=== PATIENT | female | born 1965 | race Caucasian/White ===

== ENCOUNTER 2016-07-08 11:06 | Outpatient (CLI) | payer MEDICAID | END 2016-07-08 11:07 | disposition home or self-care (01) | DX: I10 Essential (primary) hypertension (principal); Z13.220 Encounter for screening for lipoid disorders; E11.9 Type 2 diabetes mellitus without complications; K86.1 Other chronic pancreatitis; K74.60 Unspecified cirrhosis of liver; M10.9 Gout, unspecified ==

== ENCOUNTER 2016-10-18 12:56 | Outpatient (CLI) | payer MEDICAID | END 2016-10-18 12:57 | disposition critical access hospital (66) | DX: R42 Dizziness and giddiness (principal) | CPT/HCPCS: A0425; A0427 ==

== ENCOUNTER 2016-10-18 13:14 | Emergency (ER) | payer MEDICAID ==
[2016-10-18] MEDS ORDERED: SODIUM CHLORIDE 0.9% 500 ML IV ONE (14:35)
== END 2016-10-18 15:34 | disposition left against medical advice (07) ==
DX: E11.65 Type 2 diabetes mellitus with hyperglycemia (principal); Z79.84 Long term (current) use of oral hypoglycemic drugs; R07.9 Chest pain, unspecified; I10 Essential (primary) hypertension; J45.909 Unspecified asthma, uncomplicated; Z87.19 Personal history of other diseases of the digestive system; F17.200 Nicotine dependence, unspecified, uncomplicated

== ENCOUNTER 2016-10-22 19:38 | Outpatient (CLI) | payer MEDICAID | END 2016-10-22 19:39 | disposition home or self-care (01) | DX: E11.9 Type 2 diabetes mellitus without complications (principal) ==

== ENCOUNTER 2017-06-14 19:03 | Emergency (ER) | payer MEDICAID ==
[2017-06-14 19:48] LABS: BASOPHILS # (AUTO) 0.1 10^3/uL (0.0-0.1); BASOPHILS % (AUTO) 0.7 %; EOSINOPHILS % (AUTO) 0.1 %; HCT - HEMATOCRIT 41.5 % (37.0-47.0); HGB - HEMOGLOBIN 14.1 g/dL (12.0-16.0); LYMPHOCYTES # (AUTO) 1.5 10^3/uL (1.5-3.5); LYMPHOCYTES % (AUTO) 9.1 %; MEAN CORPUSCULAR HGB CONC 33.8 g/dL (32.0-36.0); MEAN CORPUSCULAR VOLUME 97.6 fL (81.0-99.0); MEAN PLATELET VOLUME 10.2 fL (7.9-10.8); MONOCYTES # (AUTO) 0.8 10^3/uL (0.0-1.0); MONOCYTES % (AUTO) 4.7 %; NEUTROPHILS # (AUTO) 13.7 10^3/uL (1.5-6.6); NEUTROPHILS % (AUTO) 85.4 %; RED BLOOD COUNT 4.26 10^6/uL (4.20-5.40); RED CELL DISTRIBUTION WIDTH 12.9 % (12.0-15.0); UNCORRECTED WHITE BLOOD COUNT 16.1 x10^3/uL; WHITE BLOOD COUNT 16.1 x10^3/uL (4.8-10.8)
[2017-06-14 20:07] LABS: ALBUMIN/GLOBULIN RATIO 0.7 (1.0-2.2); BILIRUBIN,TOTAL 0.6 mg/dL (0.2-1.0); CALCIUM 9.5 mg/dL (8.5-10.3); CREATININE 0.7 mg/dL (0.4-1.0); POTASSIUM 3.7 mmol/L (3.5-5.0); TOTAL PROTEIN 8.2 g/dL (6.7-8.2)
[2017-06-14] MEDS ORDERED: SODIUM CHLORIDE 0.9% 1,000 ML IV ONE (20:21)
[2017-06-14] MEDS ORDERED: KETOROLAC 60 MG/2 ML VIAL IVP STA (20:31)
[2017-06-14] MEDS ORDERED: INSULIN REGULAR HUMAN 100 UNIT/1 ML 10 ML MDV IVP STA ×2 (20:32→22:37)
--- NOTE | 2017-06-14 20:35 | XRAY Preliminary Report ---
Exam: XR CHEST 1 VIEW IMPRESSION: Stable hyperinflation, otherwise unremarkable single view chest. [facility] SITE ID: [id number]
--- NOTE | 2017-06-14 20:35 | ED Physician Documentation ---
History of Present Illness - Stated complaint Stated Complaint: SOA/DIZZY/WEAKNESS - Chief complaint Chief Complaint: Resp - History obtained from History obtained from: Patient - History of Present Illness Timing: Other (various timeframes for multiple c/o) Pain level now: 6 Improved by: no ameliorating factors Worsened by: no exacerbating factors - Additonal information Additional information: c/o 2 weeks of nausea, vomiting, abdominal pain, chest pain, shortness of breath , coughing, generalized weakness. hasn't checked her blood sugar in approximately 1 week Review of Systems Constitutional: reports: Myalgias, Fatigue. denies: Fever, Chills, Sweats Eyes: reports: Reviewed and negative Ears: reports: Reviewed and negative Nose: reports: Reviewed and negative Throat: reports: Reviewed and negative Cardiac: reports: Chest pain / pressure. denies: Palpitations, Pedal edema Respiratory: reports: Dyspnea, Cough GI: reports: Abdominal Pain, Nausea, Vomiting. denies: Constipation, Diarrhea : denies: Dysuria, Frequency Skin: reports: Reviewed and negative Musculoskeletal: reports: Reviewed and negative Neurologic: reports: Generalized weakness. denies: Focal weakness, Numbness PD PAST MEDICAL HISTORY - Past Medical History Cardiovascular: Hypertension Respiratory: Asthma Endocrine/Autoimmune: Type 2 diabetes GI: Pancreatitis, Cirrhosis - Past Surgical History Past Surgical History: Yes General: Splenectomy Ortho: Hip replacement, Rotator cuff repair, Other - Present Medications Home Medications: Ambulatory Orders Medication Instructions Recorded Confirmed Allopurinol 100 mg PO DAILY 10/18/16 10/18/16 Atorvastatin [Lipitor] 10 mg PO DAILY 10/18/16 10/18/16 Glipizide 5 mg PO BID 10/18/16 10/18/16 Ipratropium/Albuterol [Combivent 2 puffs INH PRN PRN 10/18/16 10/18/16 Respimat] Losartan [Cozaar] 50 mg PO DAILY 10/18/16 10/18/16 Omeprazole 20 mg PO DAILY 10/18/16 10/18/16 Ondansetron [Zofran Odt] 8 mg PO Q6H 10/18/16 10/18/16 amLODIPine [Norvasc] 10 mg PO DAILY 10/18/16 10/18/16 hydrOXYzine pamoate [Hydroxyzine 50 mg PO DAILY 10/18/16 10/18/16 Pamoate] metFORMIN [Glucophage] 1,000 mg PO BID 10/18/16 10/18/16 Ondansetron Odt [Zofran] 4 mg TL Q6H PRN #10 tablet 06/15/17 - Allergies Allergies/Adverse Reactions: Allergies Allergy/AdvReac Type Severity Reaction Status Date / Time morphine Allergy unknown Verified 06/14/17 19:12 - Social History Does the pt smoke?: Yes Smoking Status: Current every day smoker Does the pt drink ETOH?: Yes Does the pt have substance abuse?: Yes - Immunizations Immunizations are current?: Yes - POLST Patient has POLST: No PD ED PE NORMAL - Vitals Vital signs reviewed: Yes - General General: Alert and oriented X 3, No acute distress, Well developed/nourished - HEENT HEENT: PERRL, EOMI, Other (dry mucous membranes) - Neck Neck: Supple, no meningeal sign - Cardiac Cardiac: RRR, No murmur, No gallop, No rub - Respiratory Respiratory: No respiratory distress, Other (end-expiratory course wheeze scattered bilaterally) - Abdomen Abdomen: Normal bowel sounds, Soft, Non tender, Non distended - Derm Derm: Normal color, Warm and dry - Extremities Extremities: No edema - Neuro Neuro: Alert and oriented X 3 Eye Opening: Spontaneous Motor: Obeys Commands Verbal: Oriented GCS Score: 15 Results - Vitals Vitals: Vital Signs - 24 hr 06/14/17 06/14/17 06/14/17 19:08 20:56 22:29 Temperature 97.2 C H 37.2 C 36.2 C L Heart Rate 113 H 93 92 Respiratory 16 20 18 Rate Blood Pressure 119/91 H 157/87 H 147/84 H O2 Saturation 97 97 95 06/14/17 06/14/17 06/15/17 23:25 23:56 00:16 Temperature Heart Rate 82 80 84 Respiratory 19 16 14 Rate Blood Pressure 142/78 H 126/95 H 139/87 H O2 Saturation 97 96 97 06/15/17 01:05 Temperature 36.5 C Heart Rate 86 Respiratory 14 Rate Blood Pressure 139/87 H O2 Saturation 97 Oxygen O2 Source Room air - EKG (time done) No standard instances Rate: Tachy (105) Rhythm: NSR [place]: Normal Intervals: Normal [place] QRS: Normal Ischemia: Normal ST segments Computer interpretation: Disagree with computer (No ST elevation) - Labs Labs: Laboratory Tests 06/14/17 06/14/17 06/14/17 19:40 19:40 19:40 WBC 16.1 H RBC 4.26 Hgb 14.1 Hct 41.5 MCV 97.6 MCH 33.0 H MCHC 33.8 RDW 12.9 Plt Count 399 MPV 10.2 Neut # 13.7 H Lymph # 1.5 [place] # 0.8 Eos # 0.0 Baso # 0.1 Absolute Nucleated RBC 0.00 Nucleated RBC % 0.0 VBG pH VBG pCO2 VBG pO2 VBG HCO3 VBG Total CO2 VBG O2 Saturation VBG Base Excess Sodium 128 L Potassium 3.7 Chloride 84 L Carbon Dioxide 20 L Anion Gap 24.0 H BUN 11 Creatinine 0.7 Estimated GFR (MDRD) 89 Glucose 629 H* Calcium 9.5 Total Bilirubin 0.6 AST 20 ALT 14 Alkaline Phosphatase 153 H Troponin I < 0.04 Total Protein 8.2 Albumin 3.3 Globulin 4.8 H Albumin/Globulin Ratio 0.7 L Lipase 35 Urine Color Urine Clarity Urine pH Ur Specific [place] Urine Protein Urine Glucose (UA) Urine Ketones Urine Occult Blood Urine Nitrite Urine Bilirubin Urine Urobilinogen Ur Leukocyte Esterase Ur Microscopic Review Urine Culture Comments Serum Ketones 06/14/17 06/14/17 06/14/17 19:40 20:30 21:01 WBC RBC Hgb Hct MCV MCH MCHC RDW Plt Count MPV Neut # Lymph # [place] # Eos # Baso # Absolute Nucleated RBC Nucleated RBC % VBG pH 7.412 H VBG pCO2 36.6 L VBG pO2 27.5 VBG HCO3 22.8 L VBG Total CO2 23.9 L VBG O2 Saturation 55.4 L VBG Base Excess -1.4 Sodium Potassium Chloride Carbon Dioxide Anion Gap BUN Creatinine Estimated GFR (MDRD) Glucose Calcium Total Bilirubin AST ALT Alkaline Phosphatase Troponin I Total Protein Albumin Globulin Albumin/Globulin Ratio Lipase Urine Color YELLOW Urine Clarity CLEAR Urine pH 5.5 Ur Specific [place] <=1.005 Urine Protein NEGATIVE Urine Glucose (UA) >=1000 H Urine Ketones >=80 H Urine Occult Blood NEGATIVE Urine Nitrite NEGATIVE Urine Bilirubin NEGATIVE Urine Urobilinogen 0.2 (NORMAL) Ur Leukocyte Esterase NEGATIVE Ur Microscopic Review NOT INDICATED Urine Culture Comments NOT INDICATED Serum Ketones SMALL H - Rads (name of study) chest xray Radiology: Prelim report reviewed, See rad report PD MEDICAL DECISION MAKING - ED course Complexity details: reviewed old records, reviewed results, re-evaluated patient , considered differential, d/w patient ED course: Patient has various c/o, found to be hyperglycemic but only small serum ketones and VBG is reassuring. She was treated with IV fluids, insulin, and toradol for abdominal pain (followed by dilaudid, as she reported no relief with toradol). Also given IV zofran for nausea. BS trending down on serial fingerstix, below 350 prior to discharge and patient reported significant improvement in symptoms , was awake, alert, and in NAD Departure - Departure Disposition: 01 Home, Self Care Clinical Impression: Abdominal pain, Hyperglycemia, Chest pain Condition: Good Instructions: ED Abdominal Pain Unkn Cause, ED Chest Pain Atypical Unkn Cause, ED Hyperglycemia Diabetic Follow-Up: Roseanne Lara ARNP [Primary Care Provider] - Prescriptions: Ondansetron Odt [Zofran] 4 mg TL Q6H PRN #10 tablet PRN Reason: Nausea / Vomiting Discharge Date/Time: 06/15/17 01:06
--- NOTE | 2017-06-14 20:38 | XRAY Report ---
EXAM: CHEST RADIOGRAPHY EXAM DATE: 06/14/2017 07:58 PM. CLINICAL HISTORY: Chest pain. COMPARISON: 10/18/2016. TECHNIQUE: 1 view. FINDINGS: Lungs/Pleura: Hyperinflated lungs. No focal opacities evident. No pleural effusion. No pneumothorax. Mediastinum: Within exam limitations, the cardiomediastinal contour is normal. Other: Old upper left posterior rib fractures again noted. IMPRESSION: Stable hyperinflation, otherwise unremarkable single view chest. [facility] Referring Provider Line: [phone] SITE ID: [id number]
[2017-06-14 20:48] LABS: VBG PH 7.412 (7.31-7.41); VBG TOTAL CO2 23.9 mmol/L (24-29)
[2017-06-14 20:49] LABS: VBG BASE EXCESS -1.4 mmol/L (-2 - +2); VBG OXYGEN SATURATION 55.4 % (60-80)
[2017-06-14 21:19] LABS: BILIRUBIN,URINE NEGATIVE (NEGATIVE); PH,URINE 5.5 PH (5.0-7.5)
[2017-06-14 21:20] LABS: UA CHARGE (STRIP ONLY) YES; UR CULTURE IF IND NOT INDICATED
[2017-06-14] MEDS ORDERED: HYDROmorphone 1 MG/ML SYRINGE IVP STA (22:36)
[2017-06-14] MEDS ORDERED: ONDANSETRON 4 MG/2 ML VIAL IVP STA (22:37)
[2017-06-14] MEDS ORDERED: SODIUM CHLORIDE 0.9% 1,000 ML IV STA (22:37)
[2017-06-15 00:16] VITALS: BP 139/87
[2017-06-15] MEDS ORDERED: HYDROmorphone 1 MG/ML SYRINGE IVP STA (00:20)
== END 2017-06-15 01:06 | disposition home or self-care (01) ==
LOC: ED 19:03
DX: E11.65 Type 2 diabetes mellitus with hyperglycemia (principal); Z79.84 Long term (current) use of oral hypoglycemic drugs; R07.9 Chest pain, unspecified; R10.9 Unspecified abdominal pain; R11.2 Nausea with vomiting, unspecified; I10 Essential (primary) hypertension; J45.909 Unspecified asthma, uncomplicated; F17.200 Nicotine dependence, unspecified, uncomplicated
CPT/HCPCS: 36415; 71010; 80053; 81003; 82009; 82803; 83690; 84484; 85025; 93005; 96361; 96374; 96375; 96376; 99283; 99284; J1170; J1815; 81001; 87086

== ENCOUNTER 2017-07-23 11:10 | Outpatient (CLI) | payer MEDICAID ==
[2017-07-23 19:16] LABS: BASOPHILS # (AUTO) 0.1 10^3/uL (0.0-0.1); BASOPHILS % (AUTO) 1.3 %; EOSINOPHILS # (AUTO) 0.2 10^3/uL (0.0-0.7); EOSINOPHILS % (AUTO) 1.8 %; HGB - HEMOGLOBIN 12.9 g/dL (12.0-16.0); LYMPHOCYTES # (AUTO) 2.5 10^3/uL (1.5-3.5); LYMPHOCYTES % (AUTO) 22.1 %; MEAN CORPUSCULAR HEMOGLOBIN 32.8 pg (27.0-31.0); MEAN CORPUSCULAR HGB CONC 33.1 g/dL (32.0-36.0); MEAN CORPUSCULAR VOLUME 98.9 fL (81.0-99.0); MEAN PLATELET VOLUME 9.2 fL (7.9-10.8); MONOCYTES # (AUTO) 0.8 10^3/uL (0.0-1.0); MONOCYTES % (AUTO) 6.8 %; NEUTROPHILS # (AUTO) 7.6 10^3/uL (1.5-6.6); PLT - PLATELET COUNT 554 10^3/uL (130-450); RED BLOOD COUNT 3.93 10^6/uL (4.20-5.40); RED CELL DISTRIBUTION WIDTH 12.5 % (12.0-15.0); WHITE BLOOD COUNT 11.1 x10^3/uL (4.8-10.8)
[2017-07-23 19:31] LABS: BILIRUBIN,URINE SMALL (NEGATIVE); GLUCOSE, URINE (UA) 500 mg/dL (NEGATIVE); KETONES,URINE (UA) TRACE mg/dL (NEGATIVE); LEUKOCYTE ESTERASE, URINE NEGATIVE (NEGATIVE); NITRITE,URINE NEGATIVE (NEGATIVE); OCCULT BLOOD,URINE NEGATIVE (NEGATIVE); PROTEIN,URINE 30 mg/dL (NEGATIVE); UROBILINOGEN,URINE 0.2 (NORMAL) E.U./dL (NORMAL)
[2017-07-23 19:44] LABS: HEMOGLOBIN A1C 1.97 g/dL
[2017-07-23 19:47] LABS: AMORPHOUS SEDIMENT,UR Moderate /LPF; BACTERIA,URINE None Seen /HPF (None Seen); CLARITY,URINE HAZY (CLEAR); RBC,URINE 0-5 /HPF (0-5); SQUAMOUS EPITHELIAL CELL,UR MOD Squamous (<= Few)
[2017-07-23 19:54] LABS: ALBUMIN 3.5 g/dL (3.2-5.5); ALBUMIN/GLOBULIN RATIO 0.8 (1.0-2.2); ALKALINE PHOSPHATASE 117 IU/L (42-121); ALT ALANINE AMINOTRANSFERASE 17 IU/L (10-60); AST ASPARTATE AMINOTRANSFERASE 22 IU/L (10-42); BILIRUBIN,TOTAL 0.6 mg/dL (0.2-1.0); BUN - BLOOD UREA NITROGEN 12 mg/dL (6-20); CALCIUM 9.3 mg/dL (8.5-10.3); CARBON DIOXIDE - CO2 26 mmol/L (21-32); CHLORIDE 92 mmol/L (101-111); CHOL/HDL RATIO 2.1 (<4.4); CHOLESTEROL 114 mg/dL; CREATININE 0.7 mg/dL (0.4-1.0); GFR - MDRD 89 (>89); GLUCOSE 370 mg/dL (70-100); HDL CHOLESTEROL 55 mg/dL; LDL CHOLESTEROL,CALCULATED 34 mg/dL; LDL/HDL RATIO 0.6 (<4.4); SODIUM 129 mmol/L (135-145); TOTAL PROTEIN 7.7 g/dL (6.7-8.2); VLDL CHOLESTEROL 25 mg/dL
== END 2017-07-23 11:11 | disposition home or self-care (01) ==
LOC: LAB.N 11:10
PROVIDERS: ATTEND Nurse Practitioner Family
DX: I10 Essential (primary) hypertension (principal); E11.40 Type 2 diabetes mellitus with diabetic neuropathy, unspecified
CPT/HCPCS: 36415; 80050; 80061; 81001; 82043; 83036; 83721; 87086

== ENCOUNTER 2017-10-22 08:00 | Outpatient (CLI) | payer MEDICAID ==
[2017-10-22 19:21] LABS: HB2 TOTAL 13.6 g/dL; HEMOGLOBIN A1C 1.05 g/dL; HEMOGLOBIN A1C % 9.2 % (4.6-6.2)
== END 2017-10-22 08:01 | disposition home or self-care (01) ==
LOC: LAB.N 08:00
PROVIDERS: ATTEND Nurse Practitioner Family
DX: E11.40 Type 2 diabetes mellitus with diabetic neuropathy, unspecified (principal)
CPT/HCPCS: 36415; 83036

== ENCOUNTER 2017-12-03 23:34 | Outpatient (CLI) | payer MEDICAID | END 2017-12-03 23:35 | disposition critical access hospital (66) | LOC: EMS 23:34 | PROVIDERS: ATTEND Surgery | DX: R10.9 Unspecified abdominal pain (principal) | CPT/HCPCS: A0425; A0429 ==

== ENCOUNTER 2017-12-03 23:53 | Emergency (ER) | payer MEDICAID ==
[2017-12-04] MEDS ORDERED: ONDANSETRON 4 MG/2 ML VIAL IVP STA ×2 (00:13→01:24)
[2017-12-04 00:18] LABS: BASOPHILS # (AUTO) 0.1 10^3/uL (0.0-0.1); BASOPHILS % (AUTO) 1.3 %; EOSINOPHILS # (AUTO) 0.1 10^3/uL (0.0-0.7); EOSINOPHILS % (AUTO) 1.2 %; HGB - HEMOGLOBIN 12.3 g/dL (12.0-16.0); LYMPHOCYTES # (AUTO) 3.3 10^3/uL (1.5-3.5); MEAN CORPUSCULAR HEMOGLOBIN 30.9 pg (27.0-31.0); MEAN CORPUSCULAR HGB CONC 33.1 g/dL (32.0-36.0); MEAN CORPUSCULAR VOLUME 93.4 fL (81.0-99.0); MEAN PLATELET VOLUME 8.5 fL (7.9-10.8); MONOCYTES # (AUTO) 0.7 10^3/uL (0.0-1.0); MONOCYTES % (AUTO) 6.9 %; NEUTROPHILS # (AUTO) 6.3 10^3/uL (1.5-6.6); NEUTROPHILS % (AUTO) 59.6 %; PLT - PLATELET COUNT 446 10^3/uL (130-450); RED BLOOD COUNT 3.97 10^6/uL (4.20-5.40); WHITE BLOOD COUNT 10.7 x10^3/uL (4.8-10.8)
[2017-12-04] MEDS ORDERED: ONDANSETRON 4 MG/2 ML VIAL ONE (00:23)
[2017-12-04 00:30] LABS: ALBUMIN 2.9 g/dL (3.2-5.5); ALBUMIN/GLOBULIN RATIO 0.6 (1.0-2.2); ALKALINE PHOSPHATASE 107 IU/L (42-121); ALT ALANINE AMINOTRANSFERASE 15 IU/L (10-60); AST ASPARTATE AMINOTRANSFERASE 24 IU/L (10-42); BILIRUBIN,TOTAL 0.3 mg/dL (0.2-1.0); BUN - BLOOD UREA NITROGEN 7 mg/dL (6-20); CALCIUM 8.1 mg/dL (8.5-10.3); CARBON DIOXIDE - CO2 27 mmol/L (21-32); CHLORIDE 91 mmol/L (101-111); CREATININE 0.8 mg/dL (0.4-1.0); GFR - MDRD 76 (>89); GLUCOSE 352 mg/dL (70-100); LIPASE 23 U/L (22-51); SODIUM 130 mmol/L (135-145); TOTAL PROTEIN 7.6 g/dL (6.7-8.2)
[2017-12-04] MEDS ORDERED: SODIUM CHLORIDE 0.9% 1,000 ML IV ONE ×3 (00:35→08:53)
[2017-12-04] MEDS ORDERED: ACETAMINOPHEN 500 MG TABLET PO STA (00:36)
[2017-12-04] MEDS ORDERED: LIDOCAINE 1%-EPI 1:100000 20 ML MDV SUBQ STA (00:36)
[2017-12-04] MEDS ORDERED: INSULIN REGULAR HUMAN 100 UNIT/1 ML 10 ML MDV IVP STA (00:42)
[2017-12-04] MEDS ORDERED: LIDOCAINE 2%-EPI 1:100000 20 ML MDV ONE (00:54)
[2017-12-04 01:01] LABS: KETONES, SERUM (ACETEST) NEGATIVE (NEGATIVE)
[2017-12-04 01:06] LABS: VBG PCO2 38.8 mmHg (41-51); VBG PH 7.433 (7.31-7.41); VBG PO2 80.3 mmHg (25-47)
[2017-12-04 01:07] LABS: VBG BASE EXCESS 1.1 mmol/L (-2 - +2); VBG TOTAL CO2 26.5 mmol/L (24-29)
[2017-12-04] MEDS ORDERED: KETOROLAC 30 MG/ML VIAL IVP STA (01:08)
[2017-12-04] MEDS ORDERED: KETOROLAC 30 MG/ML VIAL ONE (01:14)
[2017-12-04 02:00] LABS: MUDS CUTOFF CONCENTRATIONS CUTOFF CONC BELOW:
[2017-12-04] MEDS ORDERED: IOPAMIDOL-300 100 ML VIAL ONE (02:23)
[2017-12-04 02:32] LABS: BILIRUBIN,URINE NEGATIVE (NEGATIVE); GLUCOSE, URINE (UA) >=1000 mg/dL (NEGATIVE); KETONES,URINE (UA) NEGATIVE (NEGATIVE); LEUKOCYTE ESTERASE, URINE NEGATIVE (NEGATIVE); NITRITE,URINE NEGATIVE (NEGATIVE); OCCULT BLOOD,URINE NEGATIVE (NEGATIVE); PROTEIN,URINE NEGATIVE (NEGATIVE); UROBILINOGEN,URINE 0.2 (NORMAL) E.U./dL (NORMAL)
[2017-12-04 02:38] LABS: CLARITY,URINE CLEAR (CLEAR)
[2017-12-04 02:43] LABS: AMPHETAMINE SCREEN,URINE POSITIVE (NEGATIVE); BENZODIAZEPINES SCREEN, URINE POSITIVE (NEGATIVE); COCAINE SCREEN URINE NEGATIVE (NEGATIVE); METHADONE SCREEN, URINE NEGATIVE (NEGATIVE); METHAMPHETAMINES SCREEN, URINE POSITIVE (NEGATIVE); OPIATE SCREEN, URINE POSITIVE (NEGATIVE); OXYCODONE SCREEN, URINE NEGATIVE (NEGATIVE); PROPOXYPHENE SCREEN, URINE NEGATIVE (NEGATIVE); TRICYCLIC ANTIDEPRESSANT,URINE NEGATIVE (NEGATIVE)
[2017-12-04] MEDS ORDERED: HYDROmorphone 2 MG/ML VIAL IVP STA (02:44)
--- NOTE | 2017-12-04 03:06 | CT Preliminary Report ---
Exam: CT ABDOMEN/PELVIS W/ IMPRESSION: 1. Possible gastritis. 2. 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 Small branching hypodense structures in the liver could reflect small branch thrombi. 3. Chronic calcific pancreatitis. 4. Cholelithiasis. [facility] SITE ID: [id number]
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
--- NOTE | 2017-12-04 03:22 | CT Report ---
EXAM: CT ABDOMEN AND PELVIS EXAM DATE: 12/04/2017 02:36 AM. CLINICAL HISTORY: Diffuse abdomen pain. COMPARISONS: 09/06/2015, 07/02/2014. TECHNIQUE: Routine helical CT imaging was performed through the abdomen and pelvis. IV contrast: Yes . Enteric contrast: No . Reconstructions: Coronal and sagittal. In accordance with CT protocol optimization, one or more of the following dose reduction techniques w ere utilized for this exam: automated exposure control, adjustment of mA and/or KV based on patient s ize, or use of iterative reconstructive technique. FINDINGS: Lung Bases: Unremarkable. Liver: Chronic main portal venous thrombosis with cavernous transformation of the portal vein. Hypode nse linear branching structures in the periphery of both lobes of the liver may reflect small branch venous thrombi. No suspicious masses. Gallbladder/Bile Ducts: Cholelithiasis in a decompressed gallbladder. Spleen: Post-splenectomy with left upper quadrant splenule noted. Pancreas: Chronic calcific pancreatitis without definite acute pancreatitis. Adrenal Glands: Unremarkable. Kidneys: Unremarkable. No suspicious masses or hydronephrosis. Peritoneal Cavity/Bowel: Possible gastric fold thickening and mild distal gastric wall edema. No juwan gastric stranding or mass seen. No obstruction. No free air or significant free fluid. Pelvic Organs: Post-hysterectomy with no adnexal masses seen. The bladder appears within normal limit s. Vasculature: Please see above for portal vein. 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 No aneurysms or other significant abnormality. Bones: Previous right pelvic fracture repair. No acute osseous abnormality seen. Other: None. IMPRESSION: 1. Possible gastritis. 2. 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 Small branching hypodense structures in the liver could reflect small branch thrombi. 3. Chronic calcific pancreatitis. 4. Cholelithiasis. [facility] Referring Provider Line: [phone] SITE ID: [id number]
[2017-12-04] MEDS ORDERED: PROMETHAZINE INJ 25 MG in SODIUM CHLORIDE 0.9% 50 ML IV STA (03:33)
[2017-12-04] MEDS ORDERED: IOPAMIDOL-300 100 ML VIAL IVP ONE (03:36)
[2017-12-04] MEDS ORDERED: CLINDAMYCIN 600 MG/50 ML 50 ML IV ONE (04:27)
--- NOTE | 2017-12-04 05:22 | Ultrasound Report ---
EXAM: ABDOMEN ULTRASOUND LIMITED, RUQ EXAM DATE: 12/04/2017 05:11 AM. CLINICAL HISTORY: Right upper quadrant pain, abnormal ct. COMPARISON: None. TECHNIQUE: Real-time scanning was performed with static images obtained. FINDINGS: Liver: Echotexture increased without suspicious abnormality seen. Main portal vein flow: Known chroni c portal vein thrombosis with cavernous transmission, but dilated by CT. Gallbladder: Multiple gallstones. Minimal wall thickening at 3 mm. There is reported tenderness and pericholecystic fluid present. Biliary System: Extrahepatic bile duct not visualized. Gross intrahepatic duct dilatation. Other: None. IMPRESSION: Findings raise suspicion for early cholecystitis. [facility] Referring Provider Line: [phone] SITE ID: [id number]
--- NOTE | 2017-12-04 08:06 | CONSULTATION NOTE ---
Referring Provider Name of Referring Provider:: Dr. Macias Consult Date: 12/04/17 Chief Complaint - Chief Complaint Chief Complaint: Lower RIGHT abdominal-hip pain History of Present Illness - Admitted From Admitted From:: Not admitted. - History Obtained From Records Reviewed: Yes History obtained from: Patient Exam Limitations: None - History of Present Illness HPI Comment/Other: This very pleasant but unfortunate 52-year-old female was evaluated in room 3 at [facility]'s emergency department at the request of Dr. Macias for the possibility of gallbladder disease. What had Dr. Macias thinking gallbladder disease is her continued abdominal pain. 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 The patient is known to have cholelithiasis but she does not have any postprandial pain. I asked her if she were to eat at [employer] if she would have increased abdominal pain and she smiled and stated no. In fact when I asked her what hurts the most she pointed to the incision and drainage site on her lower right abdomen/hip. She states that she has not been jaundiced. She has a history of illicit drug use/abuse. With this episode she has had significant nausea and "dry heaves." History - Past Medical History Cardiovascular: reports: Hypertension, High cholesterol Respiratory: reports: Asthma Endocrine/Autoimmune: reports: Type 2 diabetes, Other GI: reports: GERD, Pancreatitis, Cirrhosis HEENT: reports: Other Psych: reports: Depression MRSA Hx?: No - Past Surgical History General: reports: Splenectomy Ortho: reports: Hip replacement, Rotator cuff repair, Other - POLST Patient has POLST: No Meds/Allgy - Home Medications Home Medications: Ambulatory Orders Medication Instructions Recorded Confirmed Allopurinol 100 mg PO DAILY 10/18/16 12/03/17 Atorvastatin [Lipitor] 10 mg PO DAILY 10/18/16 12/03/17 Ipratropium/Albuterol [Combivent 2 puffs INH PRN PRN 10/18/16 12/03/17 Respimat] Losartan [Cozaar] 100 mg PO DAILY 10/18/16 08/07/17 Omeprazole 20 mg PO DAILY 10/18/16 12/03/17 Ondansetron [Zofran Odt] 8 mg PO Q6H 10/18/16 08/07/17 amLODIPine [Norvasc] 10 mg PO DAILY 10/18/16 12/03/17 hydrOXYzine pamoate [Hydroxyzine 50 mg PO Q6HR PRN 10/18/16 12/03/17 Pamoate] metFORMIN [Glucophage] 1,000 mg PO BID 10/18/16 12/03/17 Ondansetron Odt [Zofran] 4 mg TL Q6H PRN #10 tablet 06/15/17 08/07/17 Insulin Glargine,Hum.rec.anlog 28 unit SQ DAILY 07/30/17 07/30/17 [Basaglar Kwikpen U-100] Gabapentin 100 mg PO TID 08/07/17 12/03/17 Insulin Lispro [Humalog Kwikpen 5 units SUBQ TIDWM 08/07/17 12/03/17 U-100] - Allergies Allergies/Adverse Reactions: Allergies Allergy/AdvReac Type Severity Reaction Status Date / Time morphine Allergy unknown Verified 12/03/17 23:58 Review of Systems - All Other Systems All Other Systems: reports: Other (Asked constitutional, eyes, ears, nose, mouth , throat, cardiovascular, respiratory, gastrointestinal, genitourinary, musculoskeletal, integumentary, neurological, psychiatric, endocrine, hematologic, lymphatic, allergic, and immunologic and is diffusely positive.) Exam - Vital Signs Reviewed Vital Signs: Yes Vital Signs: Vital Signs x48h Pulse Resp BP Pulse Ox 12/04/17 06:05 88 16 128/80 99 12/04/17 03:34 88 16 131/74 H 95 12/04/17 02:13 86 20 133/85 H 95 - Physical Exam General Appearance: positive: No acute distress (Complains of pain at I&D site. Unkempt and appears much older than stated age. Dentition poor.) Eyes Bilateral: positive: No lid inflammation, Conjunctivae nml, No scleral icterus ENT: positive: Dry mucous membranes Neck: positive: Trachea midline Respiratory: positive: Chest non-tender, Other (Crackles (fine) bilaterally that do not clear completely with cough.) Cardiovascular: positive: Regular rate & rhythm Abdomen: positive: Tenderness (Only in the RLQ. None in the RUQ and certainly none subcostally. Positive bowel sounds.) Extremities: positive: Nml appearance Conclusion/Plan - Diagnosis Diagnosis: Portal vein thrombosis with cavernous transformation and history of splenectomy and varices. Asymptomatic cholelithiasis. Pain at I&D site - Plan Plan: There is absolutely no indication for cholecystectomy in this patient. In fact , she would be considered extraordinarily high risk if she needed this operation which she does not. Her signs, symptoms, labs and history are not consistent with symptomatic cholelithiasis. I had a fairly in-depth conversation with her explaining what portal vein thrombosis was and how it can result in needing her spleen out (which the patient has had). I explained to her that with this diagnosis patients are frequently considered for transplant or TIPS but with her drug use she would never be considered. Patients with portal vein thrombosis and cavernous transformation almost always have portal hypertension and varices. She is very high risk for a GI bleed. If this were to happen it would almost certainly be due to varices and I do not believe that our small hospital is equipped to handle it. She does not appear to have a bleed at this point in time. I explained to her that she needs to make some smart decisions moving forward if she intends on living significantly longer. I appreciate the opportunity to be involved in her care. Please contact me if there are any further surgical questions and/or concerns. 45 minutes of [id number] time was spent with the patient as well as in generating this note - Lab Results Lab results reviewed: Yes Jorge Bones: 12/04/17 00:00 12/04/17 00:00
[2017-12-04] MEDS ORDERED: KETOROLAC 60 MG/2 ML VIAL IVP STA (10:40)
[2017-12-04 12:11] VITALS: BP 156/101
== END 2017-12-04 12:23 | disposition home or self-care (01) ==
LOC: EDUNIT# → ED 23:53
DX: L02.211 Cutaneous abscess of abdominal wall (principal); K80.20 Calculus of gallbladder without cholecystitis without obstruction; I81 Portal vein thrombosis; I10 Essential (primary) hypertension; E78.00 Pure hypercholesterolemia, unspecified; F17.200 Nicotine dependence, unspecified, uncomplicated; Z90.81 Acquired absence of spleen
CPT/HCPCS: 10060; 36415; 74177; 76705; 80053; 80306; 81003; 82009; 82803; 83605; 83690; 85025; 87040; 96365; 96366; 96368; 99284; A9270; J1170; J1815; J7040; Q9967; 81001; 87086

== ENCOUNTER 2017-12-05 13:57 | Outpatient (CLI) | payer MEDICAID | END 2017-12-05 13:58 | disposition critical access hospital (66) | LOC: EMS 13:57 | PROVIDERS: ATTEND Surgery | DX: R10.31 Right lower quadrant pain (principal) | CPT/HCPCS: A0425; A0429 ==

== ENCOUNTER 2017-12-05 14:26 | Emergency (ER) | payer MEDICAID ==
[2017-12-05] MEDS ORDERED: ONDANSETRON 4 MG/2 ML VIAL IVP STA (14:41)
[2017-12-05] MEDS ORDERED: SODIUM CHLORIDE 0.9% 1,000 ML IV ONE ×2 (14:41→17:28)
[2017-12-05] MEDS ORDERED: LORazepam 2 MG/ML VIAL IVP STA ×2 (14:42→16:51)
[2017-12-05] MEDS ORDERED: LIDOCAINE 1%-EPI 1:100000 20 ML MDV SUBQ STA (15:15)
[2017-12-05 15:26] LABS: BASOPHILS % (AUTO) 0.2 %; EOSINOPHILS % (AUTO) 0.2 %; HGB - HEMOGLOBIN 13.4 g/dL (12.0-16.0); LYMPHOCYTES # (AUTO) 1.4 10^3/uL (1.5-3.5); LYMPHOCYTES % (AUTO) 9.7 %; MEAN CORPUSCULAR HEMOGLOBIN 32.1 pg (27.0-31.0); MEAN CORPUSCULAR HGB CONC 33.5 g/dL (32.0-36.0); MEAN CORPUSCULAR VOLUME 95.8 fL (81.0-99.0); MEAN PLATELET VOLUME 8.8 fL (7.9-10.8); MONOCYTES # (AUTO) 0.5 10^3/uL (0.0-1.0); MONOCYTES % (AUTO) 3.3 %; NEUTROPHILS # (AUTO) 12.9 10^3/uL (1.5-6.6); NEUTROPHILS % (AUTO) 86.6 %; PLT - PLATELET COUNT 477 10^3/uL (130-450); RED BLOOD COUNT 4.19 10^6/uL (4.20-5.40); RED CELL DISTRIBUTION WIDTH 12.7 % (12.0-15.0); WHITE BLOOD COUNT 14.9 x10^3/uL (4.8-10.8)
[2017-12-05 15:35] LABS: ALBUMIN 3.1 g/dL (3.2-5.5); ALBUMIN/GLOBULIN RATIO 0.6 (1.0-2.2); BILIRUBIN,TOTAL 0.8 mg/dL (0.2-1.0); CALCIUM 8.6 mg/dL (8.5-10.3); CREATININE 0.7 mg/dL (0.4-1.0); TOTAL PROTEIN 8.2 g/dL (6.7-8.2)
[2017-12-05] MEDS ORDERED: LIDOCAINE 1%-EPI 1:100000 30 ML MDV ONE (15:50)
[2017-12-05] MEDS ORDERED: INSULIN REGULAR HUMAN 100 UNIT/1 ML 10 ML MDV SUBQ STA (16:25)
[2017-12-05] MEDS ORDERED: CLINDAMYCIN 600 MG/50 ML 50 ML IV ONE (16:33)
--- NOTE | 2017-12-05 16:34 | ED Physician Documentation ---
History of Present Illness - Stated complaint Stated Complaint: DETOX - Chief complaint Chief Complaint: MHE - History obtained from History obtained from: Patient, Family (sister) - Additonal information Additional information: Patient is a 52-year-old female with a history of alcoholism as well as heroin addiction, who arrives via ambulance after her sister called 911. Sister states that the patient needs to have inpatient treatment for alcoholism and addiction. The patient has had nausea and dry heaves and complains of abdominal discomfort. She reports generalized body aches, in addition to headache. Review of her medical record reveals that she was seen here 2 days ago and had an abscess drained from her abdominal wall at that time. Past medical history in addition to the above is significant for insulin- dependent diabetes. She has not been taking her insulin for at least the past 2 days. She is homeless, but has been staying with her sister for the past 2 days. She went through alcohol treatment program in [place] in 2006. Review of Systems Constitutional: reports: Myalgias. denies: Fever Nose: denies: Congestion Throat: denies: Sore throat Cardiac: denies: Chest pain / pressure Respiratory: denies: Dyspnea, Cough GI: reports: Abdominal Pain, Nausea. denies: Vomiting, Diarrhea : denies: Dysuria Skin: reports: Lesions (Sores on lower abdominal wall.) Musculoskeletal: denies: Back pain Neurologic: reports: Headache. denies: Focal weakness, Numbness, Altered mental status PD PAST MEDICAL HISTORY - Past Medical History Cardiovascular: Hypertension, High cholesterol Respiratory: Asthma Endocrine/Autoimmune: Type 2 diabetes, Other GI: GERD, Pancreatitis, Cirrhosis HEENT: Other Psych: Depression - Past Surgical History Past Surgical History: Yes General: Splenectomy Ortho: Hip replacement, Rotator cuff repair, Other - Present Medications Home Medications: Ambulatory Orders Medication Instructions Recorded Confirmed Allopurinol 100 mg PO DAILY 10/18/16 12/03/17 Atorvastatin [Lipitor] 10 mg PO DAILY 10/18/16 12/03/17 Ipratropium/Albuterol [Combivent 2 puffs INH PRN PRN 10/18/16 12/03/17 Respimat] Losartan [Cozaar] 100 mg PO DAILY 10/18/16 08/07/17 Omeprazole 20 mg PO DAILY 10/18/16 12/03/17 Ondansetron [Zofran Odt] 8 mg PO Q6H 10/18/16 08/07/17 amLODIPine [Norvasc] 10 mg PO DAILY 10/18/16 12/03/17 hydrOXYzine pamoate [Hydroxyzine 50 mg PO Q6HR PRN 10/18/16 12/03/17 Pamoate] metFORMIN [Glucophage] 1,000 mg PO BID 10/18/16 12/03/17 Ondansetron Odt [Zofran] 4 mg TL Q6H PRN #10 tablet 06/15/17 08/07/17 Insulin Glargine,Hum.rec.anlog 28 unit SQ DAILY 07/30/17 07/30/17 [Basaglar Kwikpen U-100] Gabapentin 100 mg PO TID 08/07/17 12/03/17 Insulin Lispro [Humalog Kwikpen 5 units SUBQ TIDWM 08/07/17 12/03/17 U-100] Clindamycin [Cleocin] 300 mg PO Q6H #28 capsule 12/04/17 Lorazepam [Ativan] 1 mg PO TID PRN #12 tablet 12/05/17 - Allergies Allergies/Adverse Reactions: Allergies Allergy/AdvReac Type Severity Reaction Status Date / Time morphine Allergy unknown Verified 12/03/17 23:58 - Social History Does the pt smoke?: Yes Smoking Status: Current every day smoker Does the pt drink ETOH?: Yes Does the pt have substance abuse?: Yes - Immunizations Immunizations are current?: Yes - POLST Patient has POLST: No PD ED PE NORMAL - Vitals Vital signs reviewed: Yes (hypertensive) - General General: Alert and oriented X 3, Well developed/nourished, Other (Disheveled.) - HEENT HEENT: Atraumatic, Pharynx benign - Neck Neck: Supple, no meningeal sign, No adenopathy, No JVD - Cardiac Cardiac: RRR, No murmur - Respiratory Respiratory: No respiratory distress, Clear bilaterally - Abdomen Abdomen: Soft, Non tender - Back Back: No spinal TTP - Derm Derm: Other (1 x 2 cm erythematous raised lesion left iliac region, with tenderness to palpation.) - Extremities Extremities: No tenderness to palpate - Neuro Neuro: Alert and oriented X 3, No motor deficit, No sensory deficit Results - Vitals Vitals: Vital Signs - 24 hr 12/05/17 12/05/17 12/05/17 14:34 16:01 17:07 Temperature 37.0 C Heart Rate 99 72 78 Respiratory 22 16 18 Rate Blood Pressure 147/90 H 156/89 H 141/94 H O2 Saturation 100 99 99 12/05/17 12/05/17 19:25 20:25 Temperature 36.0 C L 36.5 C Heart Rate 66 65 Respiratory 18 16 Rate Blood Pressure 160/93 H 120/68 O2 Saturation 100 100 Oxygen O2 Source Room air - Labs Labs: Microbiology 12/05/17 16:20 Wound Culture - Preliminary Abscess Laboratory Tests 12/05/17 12/05/17 12/05/17 15:14 15:14 15:14 WBC 14.9 H RBC 4.19 L Hgb 13.4 Hct 40.1 MCV 95.8 MCH 32.1 H MCHC 33.5 RDW 12.7 Plt Count 477 H MPV 8.8 Neut # (Auto) 12.9 H Lymph # (Auto) 1.4 L [place] # (Auto) 0.5 Eos # (Auto) 0.0 Baso # (Auto) 0.0 Absolute Nucleated RBC 0.00 Nucleated RBC % 0.0 Sodium 131 L Potassium 3.9 Chloride 96 L Carbon Dioxide 23 Anion Gap 12.0 BUN 8 Creatinine 0.7 Estimated GFR (MDRD) 89 Glucose 415 H Calcium 8.6 Total Bilirubin 0.8 AST 15 ALT 15 Alkaline Phosphatase 119 Total Protein 8.2 Albumin 3.1 L Globulin 5.1 H Albumin/Globulin Ratio 0.6 L Lipase 20 L Ethyl Alcohol 19.3 Procedures - Abscess I&D (location) left iliac crest Preparation: Alcohol, Lidocaine 1%, With epi Incision: Incised with scalpel, Purulent drainage, Loculations broken, Irrigated , Culture obtained Other: Pt tolerated well, Dressing applied, Antibiotic prescribed PD MEDICAL DECISION MAKING - ED course Complexity details: reviewed old records, reviewed results, re-evaluated patient , considered differential, d/w patient, d/w family ED course: The patient's presentation is significant for withdrawal symptoms, including alcohol, heroin, and possibly methamphetamine. In addition, she is hyperglycemic , with a blood sugar over 400, after having not taken her insulin for the past two days. While the patient's sister is very motivated to have the patient enter a treatment program, the patient is not as invested in pursuing treatment. The patient is more interested in immediate relief of her current discomfort. Treatment in the Emergency Department included administration of normal saline 2 liters IV, Zofran 4 mg IV, Ativan 1 mg IV, followed by 0.5 mg IV, and ketoralac 30 mg IV. Regular Insulin 12 units was administered subcutaneously and 10 units IV. Her blood sugar improved to 275 prior to discharge. A small abscess over the left iliac crest was incised and drained. Culture is pending. Clindamycin 600 mg was administered IV. She has a prescription for Clindamycin that was written at the time of her last ED visit. She will fill that prescription for further outpatient treatment. She was evaluated by the [employer] who provided resource information to the patient and her sister. She is being discharged with a prescription for Ativan, 15 tablets. She plans to stay with a friend this and pursue intake evaluation at [facility] on Friday AM. - Sepsis Event Vital Signs: Vital Signs - 24 hr 12/05/17 12/05/17 12/05/17 14:34 16:01 17:07 Temperature 37.0 C Heart Rate 99 72 78 Respiratory 22 16 18 Rate Blood Pressure 147/90 H 156/89 H 141/94 H O2 Saturation 100 99 99 12/05/17 12/05/17 19:25 20:25 Temperature 36.0 C L 36.5 C Heart Rate 66 65 Respiratory 18 16 Rate Blood Pressure 160/93 H 120/68 O2 Saturation 100 100 Oxygen O2 Source Room air Departure - Departure Disposition: Home, Self Care Clinical Impression: Abdominal wall abscess, Withdrawal complaint, Polysubstance abuse Diabetes mellitus with hyperglycemia Qualifiers: Diabetes mellitus type: type 2 Diabetes mellitus manager long term care insulin use: without detention use Qualified Code(s): E11.65 - Type 2 diabetes mellitus with hyperglycemia Condition: Stable Instructions: ED Abscess IandD, ED Drug Abuse General Follow-Up: Roseanne Lara ARNP [Credentialed Staff Provider] - Prescriptions: Lorazepam [Ativan] 1 mg PO TID PRN #12 tablet PRN Reason: Agitation Comments: Try to refrain from alcohol and other drugs. You can use Ativan as prescribed if needed for withdrawal symptoms. Fill the prescription for clindamycin that was written the night before last. Take your insulin as previously prescribed, and monitor your blood sugars. Follow-up at the [facility] intake center on Friday as instructed by the medical chemist. Return to the emergency department if you develop increasing abdominal pain, persistent vomiting, or otherwise worsening symptoms. Discharge Date/Time: 12/05/17 20:25
[2017-12-05] MEDS ORDERED: INSULIN REGULAR HUMAN 100 UNIT/1 ML 10 ML MDV ONE (16:36)
[2017-12-05] MEDS ORDERED: KETOROLAC 30 MG/ML VIAL IVP STA (16:51)
[2017-12-05] MEDS ORDERED: INSULIN REGULAR HUMAN 100 UNIT/1 ML 10 ML MDV IVP STA (16:58)
[2017-12-05 20:41] VITALS: BP 120/68
== END 2017-12-05 20:25 | disposition home or self-care (01) ==
LOC: EDUNIT# → ED 14:26
DX: E11.65 Type 2 diabetes mellitus with hyperglycemia (principal); Z79.4 Long term (current) use of insulin; L02.211 Cutaneous abscess of abdominal wall; F10.239 Alcohol dependence with withdrawal, unspecified; F11.23 Opioid dependence with withdrawal; I10 Essential (primary) hypertension; E78.00 Pure hypercholesterolemia, unspecified; J45.909 Unspecified asthma, uncomplicated; K21.9 Gastro-esophageal reflux disease without esophagitis; F17.200 Nicotine dependence, unspecified, uncomplicated; Z59.0 Homelessness
CPT/HCPCS: 10060; 36415; 80053; 80320; 83690; 85025; 87070; 87077; 87181; 87205; 96361; 96365; 96375; 99284; J1815; J2060

== ENCOUNTER 2017-12-15 | Outpatient (CLI) | END 2017-12-15 15:15 | disposition critical access hospital (66) | CPT/HCPCS: A0425; A0429 ==

== ENCOUNTER 2017-12-15 15:59 | Emergency (ER) | payer MEDICAID ==
[2017-12-15] MEDS ORDERED: SODIUM CHLORIDE 0.9% 1,000 ML IV ONE ×2 (16:18)
[2017-12-15] MEDS ORDERED: LIDOCAINE-EPINEPH-TETRACAINE 3 ML SYRINGE TOP STA (16:19)
[2017-12-15] MEDS ORDERED: cefTRIAXone 1 GM VIAL IVP STA (16:20)
[2017-12-15] MEDS ORDERED: VANCOMYCIN INJ 1 GM in SODIUM CHLORIDE 0.9% 500 ML IV STA (16:20)
[2017-12-15] MEDS ORDERED: LIDOCAINE 2%-EPI 1:100000 20 ML MDV SUBQ STA (16:22)
--- NOTE | 2017-12-15 16:47 | ED Physician Documentation ---
History of Present Illness - Stated complaint Stated Complaint: RIB PX - Chief complaint Chief Complaint: General - History obtained from History obtained from: Patient - History of Present Illness Timing: Today Pain level max: 10 Pain level now: 10 Improved by: rest Worsened by: movement, breathing, coughing. - Additonal information Additional information: Patient states R low rib pain after coughing today. Also complains of infections to the B hips and buttocks from heroin injections. Has not been using her insulin at home either. Review of Systems Constitutional: denies: Fever, Chills Nose: denies: Rhinorrhea / runny nose, Congestion Throat: denies: Sore throat Cardiac: denies: Chest pain / pressure, Palpitations Respiratory: reports: Cough GI: denies: Abdominal Pain, Nausea, Vomiting, Diarrhea Skin: denies: Rash Musculoskeletal: denies: Neck pain, Back pain Neurologic: denies: Focal weakness, Numbness, Headache PD PAST MEDICAL HISTORY - Past Medical History Past Medical History: Yes Cardiovascular: Hypertension, High cholesterol Respiratory: Asthma Endocrine/Autoimmune: Type 2 diabetes, Other GI: GERD, Pancreatitis, Cirrhosis HEENT: Other Psych: Depression - Past Surgical History Past Surgical History: Yes General: Splenectomy Ortho: Hip replacement, Rotator cuff repair, Other - Present Medications Home Medications: Ambulatory Orders Medication Instructions Recorded Confirmed Allopurinol 100 mg PO DAILY 10/18/16 12/03/17 Atorvastatin [Lipitor] 10 mg PO DAILY 10/18/16 12/03/17 Ipratropium/Albuterol [Combivent 2 puffs INH PRN PRN 10/18/16 12/03/17 Respimat] Losartan [Cozaar] 100 mg PO DAILY 10/18/16 08/07/17 Omeprazole 20 mg PO DAILY 10/18/16 12/03/17 Ondansetron [Zofran Odt] 8 mg PO Q6H 10/18/16 08/07/17 amLODIPine [Norvasc] 10 mg PO DAILY 10/18/16 12/03/17 hydrOXYzine pamoate [Hydroxyzine 50 mg PO Q6HR PRN 10/18/16 12/03/17 Pamoate] metFORMIN [Glucophage] 1,000 mg PO BID 10/18/16 12/03/17 Ondansetron Odt [Zofran] 4 mg TL Q6H PRN #10 tablet 06/15/17 08/07/17 Insulin Glargine,Hum.rec.anlog 28 unit SQ DAILY 07/30/17 07/30/17 [Basaglar Kwikpen U-100] Gabapentin 100 mg PO TID 08/07/17 12/03/17 Insulin Lispro [Humalog Kwikpen 5 units SUBQ TIDWM 08/07/17 12/03/17 U-100] Clindamycin [Cleocin] 300 mg PO Q6H #28 capsule 12/04/17 Lorazepam [Ativan] 1 mg PO TID PRN #12 tablet 12/05/17 Doxycycline Hyclate 100 mg PO BID #20 tablet 12/15/17 Meloxicam [Mobic] 7.5 mg PO BID PRN #20 tablet 12/15/17 - Allergies Allergies/Adverse Reactions: Allergies Allergy/AdvReac Type Severity Reaction Status Date / Time morphine Allergy unknown Verified 12/15/17 16:18 - Social History Does the pt smoke?: Yes Smoking Status: Current every day smoker Does the pt drink ETOH?: Yes Does the pt have substance abuse?: Yes - Immunizations Immunizations are current?: Yes - POLST Patient has POLST: No PD ED PE NORMAL - Vitals Vital signs reviewed: Yes - General General: Alert and oriented X 3, No acute distress, Other (thin, frail female.) - HEENT HEENT: PERRL, Moist mucous membranes - Neck Neck: Supple, no meningeal sign - Cardiac Cardiac: RRR - Respiratory Respiratory: No respiratory distress, Clear bilaterally - Abdomen Abdomen: Soft, Non tender, Non distended - Back Back: No spinal TTP, Other (TTP R lower ribs.) - Derm Derm: Warm and dry, No rash - Extremities Extremities: Other (3x4cm indurated, fluctuant area with erythema to the L hip. small cellulitic area to the R hip 1x1cm, no fluctuance. ) - Neuro Neuro: Alert and oriented X 3 Results - Vitals Vitals: Vital Signs - 24 hr 12/15/17 12/15/17 12/15/17 16:05 18:25 20:05 Temperature 36.9 C 36.9 C 35.7 C L Heart Rate 82 82 92 Respiratory 30 H 16 18 Rate Blood Pressure 136/83 H 144/86 H 144/92 H O2 Saturation 98 98 99 Oxygen O2 Source Room air - Labs Labs: Microbiology 12/15/17 17:30 Wound Culture - Preliminary Abscess Laboratory Tests 12/15/17 12/15/17 12/15/17 16:40 16:40 16:40 WBC 12.9 H RBC 3.57 L Hgb 11.4 L Hct 34.2 L MCV 95.7 MCH 32.0 H MCHC 33.4 RDW 12.6 Plt Count 526 H MPV 8.4 Neut # (Auto) 10.5 H Lymph # (Auto) 1.5 [place] # (Auto) 0.8 Eos # (Auto) 0.0 Baso # (Auto) 0.1 Absolute Nucleated RBC 0.00 Nucleated RBC % 0.0 VBG pH 7.516 H VBG pCO2 32.2 L VBG pO2 82.3 H VBG HCO3 25.5 VBG Total CO2 26.5 VBG O2 Saturation 96.8 H VBG Base Excess 3.0 H Sodium 129 L Potassium 3.6 Chloride 90 L Carbon Dioxide 25 Anion Gap 14.0 H BUN 9 Creatinine 0.8 Estimated GFR (MDRD) 76 L Glucose 554 H* Calcium 8.6 Total Bilirubin 0.8 AST 13 ALT 12 Alkaline Phosphatase 135 H Total Protein 7.2 Albumin 2.7 L Globulin 4.5 H Albumin/Globulin Ratio 0.6 L Lipase 28 Serum Ketones NEGATIVE - Rads (name of study) R rib xray w/ chest Radiology: Prelim report reviewed, EMP read contemporaneously, See rad report ( New 3 cm right lung density, most suspicious for pneumonia. Recommend follow-up to ensure resolution and exclude mass. Bilateral old rib fractures without a definite acute rib fracture. No pneumothorax. ) Procedures - Abscess I&D (location) Left hip Preparation: Chlorhexadine, Lidocaine 2 %, With epi Incision: Incised with scalpel, Purulent drainage, Irrigated, Packed, Culture obtained Other: Pt tolerated well, Dressing applied, Antibiotic prescribed PD MEDICAL DECISION MAKING - ED course Complexity details: reviewed results, re-evaluated patient, considered differential, d/w patient ED course: Patient is a 52-year-old female who presents to the emergency department with what appears to be pneumonia on her chest x-ray. Will place on antibiotics for this. Also has a abscess on the left hip, appears secondary to skin popping from her heroin use. Will prescribe nonsteroidal anti-inflammatory medication along with antibiotics for home. She is well-appearing, nontoxic. Abscess was drained. Patient was counseled regarding the need for follow-up to exclude malignancy on the chest x-ray after antibiotics. Blood sugar also decreased with insulin in the emergency department. She was counseled to please use her insulin as prescribed at home. Patient counseled regarding signs and symptoms for which I believe and urgent re-evaluation would be necessary. Patient with good understanding of and agreement to plan and is comfortable going home at this time This document was made in part using voice recognition software. While efforts are made to proofread this document, sound alike and grammatical errors may occur. - Sepsis Event Vital Signs: Vital Signs - 24 hr 12/15/17 12/15/17 12/15/17 16:05 18:25 20:05 Temperature 36.9 C 36.9 C 35.7 C L Heart Rate 82 82 92 Respiratory 30 H 16 18 Rate Blood Pressure 136/83 H 144/86 H 144/92 H O2 Saturation 98 98 99 Oxygen O2 Source Room air Departure - Departure Disposition: 01 Home, Self Care Clinical Impression: Hyperglycemia, Abscess Pneumonia Qualifiers: Pneumonia type: due to unspecified organism Laterality: right Lung location: lower lobe of lung Qualified Code(s): J18.1 - Lobar pneumonia, unspecified organism Condition: Good Instructions: ED Abscess IandD, ED Hyperglycemia Diabetic, ED Pneumonia Adult Follow-Up: Roseanne Lara ARNP [Primary Care Provider] - Within 3 Days Prescriptions: Doxycycline Hyclate 100 mg PO BID #20 tablet Meloxicam [Mobic] 7.5 mg PO BID PRN #20 tablet PRN Reason: Pain Comments: Return if you worsen. Take all antibiotics until gone. Discharge Date/Time: 12/15/17 20:05
[2017-12-15 16:48] LABS: BASOPHILS # (AUTO) 0.1 10^3/uL (0.0-0.1); BASOPHILS % (AUTO) 0.6 %; EOSINOPHILS % (AUTO) 0.1 %; HGB - HEMOGLOBIN 11.4 g/dL (12.0-16.0); LYMPHOCYTES # (AUTO) 1.5 10^3/uL (1.5-3.5); LYMPHOCYTES % (AUTO) 11.3 %; MEAN CORPUSCULAR HGB CONC 33.4 g/dL (32.0-36.0); MEAN CORPUSCULAR VOLUME 95.7 fL (81.0-99.0); MEAN PLATELET VOLUME 8.4 fL (7.9-10.8); MONOCYTES # (AUTO) 0.8 10^3/uL (0.0-1.0); MONOCYTES % (AUTO) 6.5 %; NEUTROPHILS # (AUTO) 10.5 10^3/uL (1.5-6.6); NEUTROPHILS % (AUTO) 81.5 %; PLT - PLATELET COUNT 526 10^3/uL (130-450); RED BLOOD COUNT 3.57 10^6/uL (4.20-5.40); RED CELL DISTRIBUTION WIDTH 12.6 % (12.0-15.0); WHITE BLOOD COUNT 12.9 x10^3/uL (4.8-10.8)
[2017-12-15 16:49] LABS: VBG PCO2 32.2 mmHg (41-51); VBG PH 7.516 (7.31-7.41); VBG PO2 82.3 mmHg (25-47); VBG TOTAL CO2 26.5 mmol/L (24-29)
[2017-12-15] MEDS ORDERED: KETOROLAC 60 MG/2 ML VIAL IVP STA (16:52)
[2017-12-15 16:57] LABS: KETONES, SERUM (ACETEST) NEGATIVE (NEGATIVE)
[2017-12-15 17:08] LABS: ALBUMIN 2.7 g/dL (3.2-5.5); ALBUMIN/GLOBULIN RATIO 0.6 (1.0-2.2); ALKALINE PHOSPHATASE 135 IU/L (42-121); ALT ALANINE AMINOTRANSFERASE 12 IU/L (10-60); AST ASPARTATE AMINOTRANSFERASE 13 IU/L (10-42); BILIRUBIN,TOTAL 0.8 mg/dL (0.2-1.0); BUN - BLOOD UREA NITROGEN 9 mg/dL (6-20); CALCIUM 8.6 mg/dL (8.5-10.3); CARBON DIOXIDE - CO2 25 mmol/L (21-32); CHLORIDE 90 mmol/L (101-111); CREATININE 0.8 mg/dL (0.4-1.0); GFR - MDRD 76 (>89); LIPASE 28 U/L (22-51); SODIUM 129 mmol/L (135-145); TOTAL PROTEIN 7.2 g/dL (6.7-8.2)
[2017-12-15 17:09] LABS: GLUCOSE 554 mg/dL (70-100)
[2017-12-15] MEDS ORDERED: INSULIN REGULAR HUMAN 100 UNIT/1 ML 10 ML MDV SUBQ ONE (17:19)
[2017-12-15] MEDS ORDERED: INSULIN REGULAR HUMAN 100 UNIT/1 ML 10 ML MDV IVP STA ×2 (17:19→19:11)
[2017-12-15] MEDS ORDERED: LIDOCAINE PATCH 5% TOP STA (17:37)
--- NOTE | 2017-12-15 18:22 | XRAY Report ---
Procedure Date: 12/15/2017 Accession Number: [id number] / [id number] Procedure: XR - Ribs w/PA Chest RT CPT Code: FULL RESULT: EXAM: RIGHT RIB RADIOGRAPHY EXAM DATE: 12/15/2017 06:02 PM. CLINICAL HISTORY: Cough, R rib pain. COMPARISON: 06/14/2017. TECHNIQUE: 1 view of the chest and 2 views of the ribs. FINDINGS: Bones: There are old healed displaced fractures of the left third, fourth, fifth, sixth, and seventh ribs. There is a posterior right sixth rib nondisplaced old fracture. Lungs: There is a nodular density in the right lung measuring 3 cm in diameter. Mediastinum: Heart and mediastinal contours are unremarkable. Other: None. IMPRESSION: 1. New 3 cm right lung density, most suspicious for pneumonia. Recommend follow-up to ensure resolution and exclude mass. 2. Bilateral old rib fractures without a definite acute rib fracture. 3. No pneumothorax. RADIA
[2017-12-15] MEDS ORDERED: ACETAMINOPHEN 325 MG TABLET PO STA (19:05)
[2017-12-15] MEDS ORDERED: DOXYCYCLINE 100 MG TABLET PO STA (19:06)
[2017-12-15] MEDS ORDERED: LORazepam 0.5 MG TABLET PO STA (19:06)
[2017-12-15 20:06] VITALS: BP 144/92
== END 2017-12-15 20:05 | disposition home or self-care (01) ==
LOC: EDUNIT# → ED 15:59
DX: E11.65 Type 2 diabetes mellitus with hyperglycemia (principal); Z79.4 Long term (current) use of insulin; J18.1 Lobar pneumonia, unspecified organism; L02.31 Cutaneous abscess of buttock; I10 Essential (primary) hypertension; E78.00 Pure hypercholesterolemia, unspecified; K21.9 Gastro-esophageal reflux disease without esophagitis; K74.60 Unspecified cirrhosis of liver; F17.200 Nicotine dependence, unspecified, uncomplicated
CPT/HCPCS: 10060; 71101; 80053; 82009; 82803; 83690; 85025; 87070; 87205; 96365; 96375; 99283; 99284; A9270; J1815; J3370; 36415

== ENCOUNTER 2017-12-29 16:26 | Outpatient (CLI) | payer MEDICAID | END 2017-12-29 16:27 | disposition critical access hospital (66) | LOC: EMS 16:26 | PROVIDERS: ATTEND Surgery | DX: R10.30 Lower abdominal pain, unspecified (principal); R11.2 Nausea with vomiting, unspecified; R30.0 Dysuria; R73.09 Other abnormal glucose | CPT/HCPCS: A0425; A0427 ==

== ENCOUNTER 2017-12-29 16:48 | Inpatient (IN) | payer MEDICAID ==
[2017-12-29] MEDS ORDERED: SODIUM CHLORIDE 0.9% 1,000 ML IV ONE ×2 (16:56)
--- NOTE | 2017-12-29 17:00 | ED Physician Documentation ---
History of Present Illness - Stated complaint Stated Complaint: ABD PX - History obtained from History obtained from: Patient, EMS - History of Present Illness Timing: How many days ago (3-4) Pain level max: 5 Pain level now: 4 Improved by: nothing Worsened by: urination - Additonal information Additional information: Patient is a 52-year-old female who presents to the emergency department with suprapubic discomfort when urinating. Also states that she believes she has a yeast infection from recent antibiotic usage. States she has white discharge. She also states that she has not been taking her insulin and her blood sugar read "high" with EMS today. They started an IV and started fluids. She has not been vomiting. No fevers. She states that she recently had pneumonia and was treated with antibiotics for this. Review of Systems Ten Systems: 10 systems reviewed and negative Constitutional: denies: Fever, Chills Ears: denies: Ear pain Nose: denies: Rhinorrhea / runny nose, Congestion Throat: denies: Sore throat Cardiac: denies: Chest pain / pressure Respiratory: denies: Cough GI: denies: Vomiting, Diarrhea : reports: Dysuria, Frequency, Discharge (white) Skin: denies: Rash Musculoskeletal: denies: Neck pain, Back pain Neurologic: denies: Focal weakness, Numbness, Headache PD PAST MEDICAL HISTORY - Past Medical History Cardiovascular: Hypertension, High cholesterol Respiratory: Asthma Endocrine/Autoimmune: Type 2 diabetes, Other GI: GERD, Pancreatitis, Cirrhosis HEENT: Other Psych: Depression - Past Surgical History Past Surgical History: Yes General: Splenectomy Ortho: Hip replacement, Rotator cuff repair, Other - Present Medications Home Medications: Ambulatory Orders Medication Instructions Recorded Confirmed Allopurinol 100 mg PO DAILY 10/18/16 12/30/17 Atorvastatin [Lipitor] 10 mg PO DAILY 10/18/16 12/30/17 Ipratropium/Albuterol [Combivent 2 puffs INH PRN PRN 10/18/16 12/03/17 Respimat] Losartan [Cozaar] 100 mg PO DAILY 10/18/16 12/30/17 Omeprazole 20 mg PO DAILY 10/18/16 12/30/17 Ondansetron [Zofran Odt] 8 mg PO Q6H 10/18/16 08/07/17 amLODIPine [Norvasc] 10 mg PO DAILY 10/18/16 12/03/17 metFORMIN [Glucophage] 1,000 mg PO BID 10/18/16 12/30/17 Ondansetron Odt [Zofran] 4 mg TL Q6H PRN #10 tablet 06/15/17 08/07/17 Insulin Glargine,Hum.rec.anlog 28 unit SQ DAILY 07/30/17 07/30/17 [Basaglar Kwikpen U-100] Gabapentin 300 mg PO TID 08/07/17 12/30/17 Insulin Lispro [Humalog Kwikpen 5 units SUBQ TIDWM 08/07/17 12/03/17 U-100] Lorazepam [Ativan] 1 mg PO TID PRN #12 tablet 12/05/17 Meloxicam [Mobic] 7.5 mg PO BID PRN #20 tablet 12/15/17 hydrOXYzine HCl [Hydroxyzine HCl] 50 mg PO Q6H PRN 12/29/17 12/30/17 Mv,Ca,Min/Folic Acid/Vit K1 1 each PO DAILY 12/30/17 12/30/17 [One-A-Day Women's 50 Plus Tab] - Allergies Allergies/Adverse Reactions: Allergies Allergy/AdvReac Type Severity Reaction Status Date / Time morphine Allergy unknown Verified 12/29/17 17:00 - Social History Does the pt smoke?: Yes Smoking Status: Current every day smoker Does the pt drink ETOH?: Yes Does the pt have substance abuse?: Yes - Immunizations Immunizations are current?: Yes - POLST Patient has POLST: No PD ED PE NORMAL - Vitals Vital signs reviewed: Yes - General General: Alert and oriented X 3, Other (Thin female, appears ill) - HEENT HEENT: PERRL, Other (Dry mouth and tongue) - Neck Neck: Supple, no meningeal sign - Cardiac Cardiac: RRR, Strong equal pulses - Respiratory Respiratory: No respiratory distress, Clear bilaterally - Abdomen Abdomen: Soft, Non tender, Non distended - Female Female : Risk Management Director present (Allyssa ZIMMERMAN), Other (external exam only, white thick discharge) - Back Back: No spinal TTP - Derm Derm: Warm and dry, Other (Well-healed abscess to the bilateral hips) - Extremities Extremities: No edema - Neuro Neuro: Alert and oriented X 3 - Psych Psych: Normal mood, Normal affect Results - Vitals Vitals: Vital Signs - 24 hr 12/29/17 16:55 Temperature 36.2 C L Heart Rate 88 Respiratory 16 Rate Blood Pressure 154/97 H O2 Saturation 96 Oxygen O2 Source Room air - Labs Labs: Laboratory Tests 12/29/17 12/29/17 12/29/17 02:24 17:10 17:10 WBC 18.8 H RBC 4.30 Hgb 13.3 Hct 45.6 MCV 106.1 H MCH 30.9 MCHC 29.1 L RDW 15.1 H Plt Count 428 MPV 10.8 Neut # (Auto) Not Reportable Lymph # (Auto) Not Reportable Sutter # (Auto) Not Reportable Eos # (Auto) Not Reportable Baso # (Auto) Not Reportable Absolute Nucleated RBC Not Reportable Total Counted 100 Band Neuts % (Manual) 15 H Abnorm Lymph % (Manual) 0 Nucleated RBC % Not Reportable Neutrophils # (Manual) 16.2 H Lymphocytes # (Manual) 1.7 Monocytes # (Manual) 0.9 Eosinophils # (Manual) 0.0 Basophils # (Manual) 0.0 Differential Comment MANUAL DIFFERENTIAL Platelet Estimate NORMAL (130-450,000) Platelet Morphology 2+ GIANT PLATELETS RBC Morph Micro Appear 1+ POIKILOCYTOSIS VBG pH VBG pCO2 VBG pO2 VBG HCO3 VBG Total CO2 VBG O2 Saturation VBG Base Excess Sodium 124 L Potassium 4.1 Chloride 86 L Carbon Dioxide 7 L* Anion Gap 31.0 H BUN 32 H Creatinine 2.1 H Estimated GFR (MDRD) 25 L Glucose 979 H* Calcium 9.0 Total Bilirubin 1.9 H AST 12 ALT 14 Alkaline Phosphatase 135 H Total Protein 8.3 H Albumin 3.5 Globulin 4.8 H Albumin/Globulin Ratio 0.7 L Lipase 68 H Urine Color YELLOW Urine Clarity CLEAR Urine pH 5.5 Ur Specific Orchard 1.015 Urine Protein NEGATIVE Urine Glucose (UA) >=1000 H Urine Ketones >=80 H Urine Occult Blood SMALL H Urine Nitrite NEGATIVE Urine Bilirubin NEGATIVE Urine Urobilinogen 0.2 (NORMAL) Ur Leukocyte Esterase NEGATIVE Urine RBC 6-10 H Urine WBC 4-5 Ur Squamous Epith Cells RARE Squamous Urine Bacteria Rare Ur Microscopic Review INDICATED Urine Culture Comments NOT INDICATED Urine Opiates Screen Ur Oxycodone Screen Urine Methadone Screen Ur Propoxyphene Screen Ur Barbiturates Screen Ur Tricyclics Screen Ur Phencyclidine Scrn Ur Amphetamine Screen U Methamphetamines Scrn U Benzodiazepines Scrn Urine Cocaine Screen U Cannabinoids Screen Ethyl Alcohol < 5.0 Serum Ketones LARGE H 12/29/17 12/29/17 17:10 18:50 WBC RBC Hgb Hct MCV MCH MCHC RDW Plt Count MPV Neut # (Auto) Lymph # (Auto) Sutter # (Auto) Eos # (Auto) Baso # (Auto) Absolute Nucleated RBC Total Counted Band Neuts % (Manual) Abnorm Lymph % (Manual) Nucleated RBC % Neutrophils # (Manual) Lymphocytes # (Manual) Monocytes # (Manual) Eosinophils # (Manual) Basophils # (Manual) Differential Comment Platelet Estimate Platelet Morphology RBC Morph Micro Appear VBG pH 7.101 L VBG pCO2 21.5 L VBG pO2 59.9 H VBG HCO3 6.5 L VBG Total CO2 7.2 L VBG O2 Saturation 84.6 H VBG Base Excess -21.4 L Sodium Potassium Chloride Carbon Dioxide Anion Gap BUN Creatinine Estimated GFR (MDRD) Glucose Calcium Total Bilirubin AST ALT Alkaline Phosphatase Total Protein Albumin Globulin Albumin/Globulin Ratio Lipase Urine Color Urine Clarity Urine pH Ur Specific Or[place] Urine Protein Urine Glucose (UA) Urine Ketones Urine Occult Blood Urine Nitrite Urine Bilirubin Urine Urobilinogen Ur Leukocyte Esterase Urine RBC Urine WBC Ur Squamous Epith Cells Urine Bacteria Ur Microscopic Review Urine Culture Comments Urine Opiates Screen POSITIVE H Ur Oxycodone Screen NEGATIVE Urine Methadone Screen NEGATIVE Ur Propoxyphene Screen NEGATIVE Ur Barbiturates Screen NEGATIVE Ur Tricyclics Screen NEGATIVE Ur Phencyclidine Scrn NEGATIVE Ur Amphetamine Screen POSITIVE H U Methamphetamines Scrn POSITIVE H U Benzodiazepines Scrn NEGATIVE Urine Cocaine Screen NEGATIVE U Cannabinoids Screen NEGATIVE Ethyl Alcohol Serum Ketones - Rads (name of study) cxr Radiology: Prelim report reviewed, EMP read contemporaneously, See rad report ( Mild decrease in thickness of 4.7 x 2.1 cm opacity with a cavitation within it, consistent with improving cavitating pneumonia. Underlying lesion with surrounding consolidation is not excluded. Continued close follow-up is recommended to resolution) PD MEDICAL DECISION MAKING - ED course Complexity details: reviewed old records, reviewed results, re-evaluated patient , considered differential, d/w patient, d/w is consultant ED course: Patient is a 52-year-old female who presents to the emergency department and is found to be an diabetic ketoacidosis. Given IV fluids and started on insulin drip. Appears to have a resolving cavitary pneumonia on her chest x-ray. Afebrile here. Will hold antibiotics at this point and let the hospitalist decide if they should be continued. Discussed the case with Dr. Ibarra, hospitalist who accepts. This document was made in part using voice recognition software. While efforts are made to proofread this document, sound alike and grammatical errors may occur. - Sepsis Event Vital Signs: Vital Signs - 24 hr 12/29/17 16:55 Temperature 36.2 C L Heart Rate 88 Respiratory 16 Rate Blood Pressure 154/97 H O2 Saturation 96 Oxygen O2 Source Room air Departure - Departure Disposition: [facility] DC/Xfer Clinical Impression: DKA (diabetic ketoacidoses) Qualifiers: Diabetes mellitus type: type 2 Diabetes mellitus complication detail: without coma Qualified Code(s): E11.10 - Type 2 diabetes mellitus with ketoacidosis without coma Condition: Stable Discharge Date/Time: 12/29/17 20:18
[2017-12-29 17:20] LABS: BASOPHILS % (AUTO) 0.5 %; EOSINOPHILS % (AUTO) 0.1 %; HGB - HEMOGLOBIN 13.3 g/dL (12.0-16.0); LYMPHOCYTES % (AUTO) 3.8 %; MEAN CORPUSCULAR HEMOGLOBIN 30.9 pg (27.0-31.0); MEAN CORPUSCULAR HGB CONC 29.1 g/dL (32.0-36.0); MEAN CORPUSCULAR VOLUME 106.1 fL (81.0-99.0); MEAN PLATELET VOLUME 10.8 fL (7.9-10.8); MONOCYTES % (AUTO) 6.8 %; NEUTROPHILS % (AUTO) 88.8 %; PLT - PLATELET COUNT 428 10^3/uL (130-450); RED CELL DISTRIBUTION WIDTH 15.1 % (12.0-15.0); WHITE BLOOD COUNT 18.8 x10^3/uL (4.8-10.8)
[2017-12-29 17:26] LABS: ABNORMAL LYMPHS % (MANUAL) 0 %
[2017-12-29 17:27] LABS: KETONES, SERUM (ACETEST) LARGE (NEGATIVE)
[2017-12-29 17:33] LABS: VBG PCO2 21.5 mmHg (41-51); VBG PH 7.101 (7.31-7.41); VBG PO2 59.9 mmHg (25-47)
[2017-12-29 17:34] LABS: VBG BASE EXCESS -21.4 mmol/L (-2 - +2); VBG TOTAL CO2 7.2 mmol/L (24-29)
[2017-12-29 17:40] LABS: BAND NEUTROPHILS % (MANUAL) 15 %; LYMPHOCYTES # (MANUAL) 1.7 10^3/uL (1.5-3.5); LYMPHOCYTES % (MANUAL) 9 %; MONOCYTES # (MANUAL) 0.9 10^3/uL (0.0-1.0); NEUTROPHILS # (MANUAL) 16.2 10^3/uL (1.5-6.6); NEUTROPHILS % (MANUAL) 71 %
[2017-12-29 17:41] LABS: DIFFERENTIAL COMMENT MANUAL DIFFERENTIAL; PLATELET ESTIMATE, MANUAL NORMAL (130-450,000) (NORMAL); PLATELET MORPHOLOGY 2+ GIANT PLATELETS (NORMAL)
--- NOTE | 2017-12-29 17:46 | XRAY Report ---
Procedure Date: 12/29/2017 Accession Number: [id number] / [id number] Procedure: XR - Chest 1 View X-Ray CPT Code: 07811 FULL RESULT: EXAM: CHEST RADIOGRAPHY EXAM DATE: 12/29/2017 05:28 PM. CLINICAL HISTORY: Cough, h/o pneumonia. COMPARISON: [facility] W/PA CHEST RT 12/15/2017. TECHNIQUE: 1 view. FINDINGS: Lungs/Pleura: There is a 4.7 x 2.1 cm opacity in the right lower lung, decreased in thickness previously measuring 4.7 x 3.1 cm. There is a gas-filled cavitation Mediastinum: Heart and mediastinal contours are unremarkable. Other: None. IMPRESSION: Mild decrease in thickness of 4.7 x 2.1 cm opacity with a cavitation within it, consistent with improving cavitating pneumonia. Underlying lesion with surrounding consolidation is not excluded. Continued close follow-up is recommended to resolution. [facility]
[2017-12-29] MEDS ORDERED: INSULIN REGULAR HUMAN 100 UNIT in SODIUM CHLORIDE 0.9% 100ML 99 ML IV STA (17:48)
[2017-12-29 17:54] LABS: ALBUMIN 3.5 g/dL (3.2-5.5); ALBUMIN/GLOBULIN RATIO 0.7 (1.0-2.2); ALKALINE PHOSPHATASE 135 IU/L (42-121); ALT ALANINE AMINOTRANSFERASE 14 IU/L (10-60); AST ASPARTATE AMINOTRANSFERASE 12 IU/L (10-42); BILIRUBIN,TOTAL 1.9 mg/dL (0.2-1.0); BUN - BLOOD UREA NITROGEN 32 mg/dL (6-20); CARBON DIOXIDE - CO2 7 mmol/L (21-32); CHLORIDE 86 mmol/L (101-111); CREATININE 2.1 mg/dL (0.4-1.0); GFR - MDRD 25 (>89); GLUCOSE 979 mg/dL (70-100); LIPASE 68 U/L (22-51); SODIUM 124 mmol/L (135-145); TOTAL PROTEIN 8.3 g/dL (6.7-8.2)
[2017-12-29 19:06] LABS: MUDS CUTOFF CONCENTRATIONS CUTOFF CONC BELOW:
[2017-12-29] MEDS ORDERED: hydrOXYzine PAMOATE 25 MG CAPSULE PO PRN (19:11)
[2017-12-29] MEDS ORDERED: ZOLPIDEM 5 MG TABLET PO PRN (19:14)
[2017-12-29] MEDS ORDERED: PROCHLORPERAZINE 10 MG/2 ML VIAL IVP PRN (19:14)
[2017-12-29 19:25] LABS: AMPHETAMINE SCREEN,URINE POSITIVE (NEGATIVE); COCAINE SCREEN URINE NEGATIVE (NEGATIVE); METHAMPHETAMINES SCREEN, URINE POSITIVE (NEGATIVE); OPIATE SCREEN, URINE POSITIVE (NEGATIVE)
[2017-12-29 19:26] LABS: BENZODIAZEPINES SCREEN, URINE NEGATIVE (NEGATIVE); METHADONE SCREEN, URINE NEGATIVE (NEGATIVE); OXYCODONE SCREEN, URINE NEGATIVE (NEGATIVE); PROPOXYPHENE SCREEN, URINE NEGATIVE (NEGATIVE); TRICYCLIC ANTIDEPRESSANT,URINE NEGATIVE (NEGATIVE)
[2017-12-29] MEDS ORDERED: SODIUM CHLORIDE 0.9% 1,000 ML IV SCH (20:00)
[2017-12-29 20:17] LABS: BASOPHILS # (AUTO) 0.1 10^3/uL (0.0-0.1); BASOPHILS % (AUTO) 0.3 %; EOSINOPHILS % (AUTO) 0.1 %; HGB - HEMOGLOBIN 13.6 g/dL (12.0-16.0); LYMPHOCYTES # (AUTO) 1.2 10^3/uL (1.5-3.5); MEAN CORPUSCULAR HEMOGLOBIN 31.5 pg (27.0-31.0); MEAN CORPUSCULAR HGB CONC 31.3 g/dL (32.0-36.0); MEAN CORPUSCULAR VOLUME 100.8 fL (81.0-99.0); MEAN PLATELET VOLUME 10.2 fL (7.9-10.8); MONOCYTES % (AUTO) 5.7 %; NEUTROPHILS # (AUTO) 15.4 10^3/uL (1.5-6.6); NEUTROPHILS % (AUTO) 86.9 %; PLT - PLATELET COUNT 435 10^3/uL (130-450); RED BLOOD COUNT 4.31 10^6/uL (4.20-5.40); RED CELL DISTRIBUTION WIDTH 14.3 % (12.0-15.0); WHITE BLOOD COUNT 17.7 x10^3/uL (4.8-10.8)
[2017-12-29 20:25] LABS: VBG PCO2 23.7 mmHg (41-51); VBG PH 7.226 (7.31-7.41); VBG PO2 42.5 mmHg (25-47)
[2017-12-29 20:26] LABS: VBG BASE EXCESS -16.1 mmol/L (-2 - +2); VBG TOTAL CO2 10.3 mmol/L (24-29)
[2017-12-29 20:34] LABS: CALCIUM 8.8 mg/dL (8.5-10.3); MAGNESIUM 1.4 mg/dL (1.7-2.8)
[2017-12-29] MEDS: INSULIN REGULAR HUMAN 100 UNIT in SODIUM CHLORIDE 0.9% 100ML 99 ML IV SCH (20:41)
[2017-12-29 20:45] LABS: PLATELET ESTIMATE, MANUAL DECREASED (<130,000) (NORMAL); PLATELET MORPHOLOGY 3+ GIANT PLATELETS (NORMAL); RBC MORPHOLOGY (MULTIPLE) NORMAL APPEARANCE (NORMAL)
[2017-12-29] MEDS: oxyCODONE 5 MG TABLET PO PRN (20:45)
[2017-12-29 20:47] LABS: HB2 TOTAL 14.5 g/dL; HEMOGLOBIN A1C 1.93 g/dL; HEMOGLOBIN A1C % 14.3 % (4.6-6.2)
[2017-12-29] MEDS: LORazepam 0.5 MG TABLET PO PRN (21:03)
[2017-12-29] MEDS ORDERED: HYDROmorphone 1 MG/ML CARPUJECT ONE (21:10)
[2017-12-29] MEDS: NS W/20 MEQ KCL 1,000 ML IV SCH (21:27)
[2017-12-29 21:29] LABS: KETONES, SERUM (ACETEST) LARGE (NEGATIVE)
[2017-12-29 21:35] LABS: BUN - BLOOD UREA NITROGEN 28 mg/dL (6-20); CALCIUM 8.7 mg/dL (8.5-10.3); CHLORIDE 93 mmol/L (101-111); CREATININE 1.8 mg/dL (0.4-1.0); GFR - MDRD 30 (>89); MAGNESIUM 1.3 mg/dL (1.7-2.8); SODIUM 127 mmol/L (135-145)
[2017-12-29 21:36] LABS: CARBON DIOXIDE - CO2 12 mmol/L (21-32); GLUCOSE 670 mg/dL (70-100)
[2017-12-29] MEDS: GABAPENTIN 100 MG CAPSULE PO SCH (21:57)
--- NOTE | 2017-12-29 23:12 | HISTORY & PHYSICAL EXAMINATION ---
Chief Complaint - Chief Complaint Chief Complaint: Abdominal Pain History of Present Illness - Admitted From Admitted From:: Emergency Department - History Obtained From Records Reviewed: Yes History obtained from: Patient and medical records Exam Limitations: None - History of Present Illness HPI Comment/Other: Patient is a 52-year-old female with a past medical history significant for hypertension, type 2 diabetes mellitus on insulin, anxiety, gout, polysubstance abuse, history of splenic infarct, GERD, chronic pancreatitis and history of alcohol abuse who presented to the emergency department with a chief complaint of abdominal pain. The patient states that she was in her normal state of health until about 3 days ago when she states that she began having polydipsia, generalized weakness, nausea and vomiting. She states that that time she felt so weak that she could not even get out of her bed to go and find her insulin. She states that she has not taken her insulin for the last 3 days because she has been unable to find it. She also states that she has been having chills and has been losing weight for the last few years. She states that today along with feeling weak she also began having epigastric abdominal pain. She states it was associated with nausea and vomiting. She also admits that her polydipsia has been worsening over the last 3 days. She also has polyuria. On further questioning the patient also admits to a cough that has been worsening over the last week. She states that she is also had some right sided chest pain with deep inspiration. She states that last week she did come to the emergency department and was diagnosed with pneumonia and placed on antibiotics which she states that she has been taking. She states that at that time she was also found to have a gluteal abscess that was drained in the emergency department. The patient states that her abdominal pain has been worsening over the day and is localized in the epigastric area without any radiation. She states the pain is anywhere from a 6 to an 8 out of 10. She states that it is a sharp burning pain. She states that it did improve slightly with pain medication in the emergency department. The patient also states that she has had swelling of her wrist and hands due to a gout flareup. She also admits to a rash in her groin area. The patient states that she has been living with a friend who is her roommate. According to the emergency room records the patient 's roommate states that the patient has been taking heroin for the last several days and according to the triage report the patient claimed to have lost her insulin for the last for 5 days. The patient denies any headaches, dizziness, blurred vision, runny nose, sore throat, nasal congestion, difficulty swallowing, shortness of air, orthopnea, PND, increased lower extremity swelling, diarrhea, constipation, back pain, neck stiffness, hair loss, night sweats, fevers or any focal neurologic deficits. On presentation to the emergency department the patient was afebrile and hypertensive and was not in any respiratory distress. The patient appeared disheveled looking, cachectic and ill appearing. The patient's lab work revealed a pH of 7.1 with a blood glucose of 979 and a bicarb of 7. The patient also had an anion gap of 31 with large serum ketones. The patient's creatinine was elevated at 2.1 from a baseline of 0.8. The patient also had a leukocytosis of 18.8 with 15% bands. The patient was diagnosed with diabetic ketoacidosis, placed on an insulin drip and admitted to the intensive care unit. The patient also received several liters of IV fluid in the emergency department. History - Past Medical History Cardiovascular: reports: Hypertension Respiratory: reports: Asthma Neuro: reports: None Endocrine/Autoimmune: reports: Type 2 diabetes, Other GI: reports: GERD, Pancreatitis, Cirrhosis, Other (Splenic Infarct) : reports: None HEENT: reports: None, Other Psych: reports: Depression Musculoskeletal: reports: Gout Derm: reports: Other (Yeast Infection) MRSA Hx?: No - Past Surgical History General: reports: Splenectomy Ortho: reports: Hip replacement, Rotator cuff repair, Other - Family & Social History Family History: Mother: (Mother of a brain tumor and father of a pulmonary embolism), Cancer, Father: , Sister: Alive and Well Living arrangement: Other (Living with a friend) Living Situation: With friend(s) Social History Notes: The patient states that she is originally from [facility] and [place] to be closer to her sister and father. She currently lives at [facility] in [place] and is sharing a room with a friend. She is her 12 years ago. She has never had any children. The patient does admit to occasional methamphetamine and heroin use. She states that she starts to methamphetamine and smokes the heroin. She also states that she smokes marijuana daily. The patient admits to half a pack a day of tobacco use and has been smoking for over 35 years. She states that she was previously a heavy drinker but has cut down to just few beers a day. According to the patient's friend the patient has been using heroin daily for the last 4-5 days. - POLST Patient has POLST: No POLST Status: Full Code Meds/Allgy - Home Medications Home Medications: Ambulatory Orders Medication Instructions Recorded Confirmed Allopurinol 100 mg PO DAILY 10/18/16 12/29/17 Atorvastatin [Lipitor] 10 mg PO DAILY 10/18/16 12/29/17 Ipratropium/Albuterol [Combivent 2 puffs INH PRN PRN 10/18/16 12/03/17 Respimat] Losartan [Cozaar] 100 mg PO DAILY 10/18/16 12/29/17 Omeprazole 20 mg PO DAILY 10/18/16 12/29/17 Ondansetron [Zofran Odt] 8 mg PO Q6H 10/18/16 08/07/17 amLODIPine [Norvasc] 10 mg PO DAILY 10/18/16 12/03/17 metFORMIN [Glucophage] 1,000 mg PO BID 10/18/16 12/29/17 Ondansetron Odt [Zofran] 4 mg TL Q6H PRN #10 tablet 06/15/17 08/07/17 Insulin Glargine,Hum.rec.anlog 28 unit SQ DAILY 07/30/17 07/30/17 [Basaglar Kwikpen U-100] Gabapentin 300 mg PO TID 08/07/17 12/29/17 Insulin Lispro [Humalog Kwikpen 5 units SUBQ TIDWM 08/07/17 12/03/17 U-100] Lorazepam [Ativan] 1 mg PO TID PRN #12 tablet 12/05/17 Meloxicam [Mobic] 7.5 mg PO BID PRN #20 tablet 12/15/17 hydrOXYzine HCl [Hydroxyzine HCl] 50 mg PO Q6H PRN 12/29/17 12/29/17 - Allergies Allergies/Adverse Reactions: Allergies Allergy/AdvReac Type Severity Reaction Status Date / Time morphine Allergy unknown Verified 12/29/17 17:00 Review of Systems - Other Findings Other Findings: A comprehensive review of systems was performed the pertinent positives and negatives are stated above in the HPI and the remainder of the review of systems is negative. Exam - Vital Signs Reviewed Vital Signs: Yes Vital Signs: Vital Signs x48h Temp Pulse Pulse Resp BP BP Pulse Ox 12/29/17 22:00 86 11 L 158/85 H 100 12/29/17 21:00 87 12 150/97 H 100 12/29/17 20:38 36.2 C L 91 15 127/90 H 100 12/29/17 19:17 89 15 163/105 H 96 - Physical Exam General Appearance: positive: Moderate distress (Ill apearing, very weak), Other (Patient appears cachectic and disheveled) Eyes Bilateral: positive: Normal inspection, PERRL, EOMI, No lid inflammation, Conjunctivae nml, No scleral icterus ENT: positive: ENT inspection nml, Pharynx nml, Dry mucous membranes. negative : Purulent nasal drainage, Pharyngeal erythema, Oral lesions Neck: positive: Nml inspection, Thyroid nml, No JVD, Trachea midline. negative : Thyromegaly, Lymphadenopathy (R), Lymphadenopathy (L), Stiff neck, Carotid bruit, Tracheal deviation Respiratory: positive: Chest non-tender, No respiratory distress, Rhonchi ( Right lower lobe), Other (Decreased breath sounds throughout lungs) Cardiovascular: positive: Regular rate & rhythm, No murmur, No gallop Peripheral Pulses: positive: 2+ Abdomen: positive: No organomegaly, Nml bowel sounds, No distention, Tenderness (Epigastic area, soft with some guarding but no rebound), Guarding. negative: Rebound, Hepatomegaly Back: positive: Nml inspection. negative: CVA tenderness (R), CVA tenderness (L ) Skin: positive: Dry. negative: Cyanosis, Diaphoresis, Pallor Extremities: positive: Non-tender, Full ROM, Nml appearance, No pedal edema Neurologic/Psychiatric: positive: Oriented x3, CN's nml (2-12), Motor nml, Sensation nml, Mood/affect nml Conclusion/Plan - Problem List (1) DKA (diabetic ketoacidoses) Conclusion/Plan: Patient presented with polydipsia, polyuria, generalized weakness, nausea and vomiting along with abdominal pain. The patient states that she was unable to find her insulin for the last 4-5 days. She also appears to have an ongoing infection with a cavitary right lower lobe pneumonia as well history of multiple gluteal abscesses. On presentation to the emergency department the patient was in DKA with a pH of 7.1, large serum ketones, anion gap of 31 and bicarb of 7 with a glucose of 979. Likely cause of DKA is multifactorial secondary to ongoing infections and noncompliance with insulin. Plan: Admit to ICU Insulin drip at 0.1 U/kg/h IV fluids Monitor anion gap, serum ketones, glucose and acidosis Once patient's anion gap closes and acidosis and serum ketones improve patient will be transitioned to subq insulin and we will stop the insulin drip Hemoglobin A1c is elevated at 14.3 N.p.o. once patient is off the drip she will be placed on a diabetic diet Nutrition consult Patient counseled for need to be compliant with medication Qualifiers: Diabetes mellitus type: type 2 Diabetes mellitus complication detail: without coma Qualified Code(s): E11.10 - Type 2 diabetes mellitus with ketoacidosis without coma (2) Pneumonia Conclusion/Plan: Patient presented a few weeks ago to the emergency department with cough and shortness of breath and was found to have a cavitary right lower lobe pneumonia. She was placed on antibiotics according to her she was compliant with antibiotics although this is doubtful and on presentation today the patient continues to have a persistent right lower lobe cavitary pneumonia although it has improved. The patient has a leukocytosis with a bandemia on presentation. She also has rhonchi on examination. Plan: IV antibiotics with vancomycin and Levaquin Supplemental oxygen as needed CT chest to better evaluate cavitary pneumonia IV fluids Qualifiers: Pneumonia type: due to unspecified organism Laterality: right Lung location: lower lobe of lung Qualified Code(s): J18.1 - Lobar pneumonia, unspecified organism (3) Abscess Conclusion/Plan: Patient has history of multiple gluteal abscesses. She had 2 abscesses near her hip drained just 2 weeks ago. She continues to complain of pain although she does not appear to have any drainable abscesses at this time she does present with leukocytosis and bandemia. Given her ongoing DKA and history of abscesses with complaints of pain in the gluteal area the patient will be placed on IV vancomycin to treat possible abscess and cellulitis of the gluteal region. (4) Vaginal yeast infection Conclusion/Plan: Patient had vaginal discharge which appeared to be milky likely due to Sho yeast infection. Patient will be placed on Diflucan 150 mg every 72 hours 3 times. (5) CAN (acute kidney injury) Conclusion/Plan: On presentation to the emergency department the patient's creatinine is elevated to 2.1 from a baseline of 0.8. The patient appears to have prerenal azotemia likely due to DKA and severe dehydration. Patient will be given IV fluids, we will avoid any nephrotoxic agents and we will monitor the patient's creatinine. (6) High anion gap metabolic acidosis Conclusion/Plan: Patient presents with a high anion gap metabolic acidosis secondary to DKA. The patient's anion gap is 31 on presentation with a bicarb of 7 and a pH of 7.1. We expect that with treatment of DKA the patient's anion gap metabolic acidosis will improve. (7) Abdominal pain Conclusion/Plan: The patient did have abdominal pain and search chief complaint on presentation. Patient has mild tenderness in the epigastric area with some guarding but no rebound. Patient has a history of gastritis as she has history of alcohol abuse and history of chronic pancreatitis. The patient's lipase is only 68 therefore this does not appear to be pancreatitis. 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 Patient will be placed on Pepcid and we will monitor patient's abdominal pain. Patient will also be given oral and IV pain medication. (8) Hypertension Conclusion/Plan: Patient has a history of hypertension and is on multiple antihypertensive medications at home. Once the patient can tolerate oral intake we will restart her home oral medications for hypertension. We will monitor the patient's blood pressure and titrate medications as needed. Qualifiers: Hypertension type: essential hypertension Qualified Code(s): I10 - Essential (primary) hypertension (9) Hypokalemia Conclusion/Plan: Patient has hypokalemia on presentation with a potassium down to 3.0. Likely this is secondary to DKA and severe dehydration along with vomiting. The patient's potassium will be replaced per the ICU for electrolyte replacement protocol. We will continue to monitor the patient's potassium and treat her nausea with antiemetics. (10) Hyponatremia Conclusion/Plan: Patient presents with hyponatremia with sodium of 124. This is partially secondary to pseudohyponatremia due to hyperglycemia. Patient is also very dehydrated and likely has some component of hypovolemic hyponatremia. Patient will be given IV fluids and DKA will be treated and we will continue to monitor her sodium. (11) Polysubstance abuse Conclusion/Plan: Patient is a history of polysubstance abuse including methamphetamine, heroin, marijuana and alcohol abuse. Patient was counseled on need to quit the above as they are having adverse effects on her health. We will need to watch for any heroin withdrawal is according to her friend she has been using heroin for the last 3-4 days. Patient will be placed on as needed Ativan if she does begin to have withdrawal symptoms. She may also require antiemetics and IV fluids. We will continue to monitor closely for - Lab Results Lab results reviewed: Yes Fish Bones: 12/29/17 20:10 12/30/17 01:14 Other Lab Results: Laboratory Results WBC 17.7 x10^3/uL (4.8-10.8) H 12/29/17 20:10 RBC 4.31 10^6/uL (4.20-5.40) 12/29/17 20:10 Hgb 13.6 g/dL (12.0-16.0) 12/29/17 20:10 Hct 43.4 % (37.0-47.0) 12/29/17 20:10 MCV 100.8 fL (81.0-99.0) H 12/29/17 20:10 MCH 31.5 pg (27.0-31.0) H 12/29/17 20:10 MCHC 31.3 g/dL (32.0-36.0) L 12/29/17 20:10 RDW 14.3 % (12.0-15.0) 12/29/17 20:10 Plt Count 435 10^3/uL (130-450) 12/29/17 20:10 MPV 10.2 fL (7.9-10.8) 12/29/17 20:10 Neut # (Auto) 15.4 10^3/uL (1.5-6.6) H 12/29/17 20:10 Lymph # (Auto) 1.2 10^3/uL (1.5-3.5) L 12/29/17 20:10 [place] # (Auto) 1.0 10^3/uL (0.0-1.0) 12/29/17 20:10 Eos # (Auto) 0.0 10^3/uL (0.0-0.7) 12/29/17 20:10 Baso # (Auto) 0.1 10^3/uL (0.0-0.1) 12/29/17 20:10 Absolute Nucleated RBC 0.00 x10^3/uL 12/29/17 20:10 Total Counted 100 12/29/17 17:10 Band Neuts % (Manual) 15 % (0-10) H 12/29/17 17:10 Abnorm Lymph % (Manual) 0 % 12/29/17 17:10 Nucleated RBC % 0.0 /100WBC 12/29/17 20:10 Neutrophils # (Manual) 16.2 10^3/uL (1.5-6.6) H 12/29/17 17:10 Lymphocytes # (Manual) 1.7 10^3/uL (1.5-3.5) 12/29/17 17:10 Monocytes # (Manual) 0.9 10^3/uL (0.0-1.0) 12/29/17 17:10 Eosinophils # (Manual) 0.0 10^3/uL (0-0.7) 12/29/17 17:10 Basophils # (Manual) 0.0 10^3/uL (0-0.1) 12/29/17 17:10 Differential Comment MANUAL DIFFERENTIAL 12/29/17 17:10 Manual Slide Review Indicated 12/29/17 20:10 Platelet Estimate DECREASED (<130,000) (NORMAL) 12/29/17 20:10 Platelet Morphology 3+ GIANT PLATELETS (NORMAL) 12/29/17 20:10 RBC Morph Micro Appear 1+ ANISOCYTOSIS (NORMAL) 1+ POIKILOCYTOSIS (NORMAL) 12/29/17 17:10 RBC Morph Micro Appear NORMAL APPEARANCE (NORMAL) 12/29/17 20:10 VBG pH 7.226 (7.31-7.41) L 12/29/17 20:10 VBG pCO2 23.7 mmHg (41-51) L 12/29/17 20:10 VBG pO2 42.5 mmHg (25-47) 12/29/17 20:10 VBG HCO3 9.6 mmol/L (23-28) L 12/29/17 20:10 VBG Total CO2 10.3 mmol/L (24-29) L 12/29/17 20:10 VBG O2 Saturation 76.1 % (60-80) 12/29/17 20:10 VBG Base Excess -16.1 mmol/L (-2 - +2) L 12/29/17 20:10 Sodium 127 mmol/L (135-145) L 12/29/17 21:18 Potassium 2.7 mmol/L (3.5-5.0) L 12/29/17 21:18 Chloride 93 mmol/L (101-111) L 12/29/17 21:18 Carbon Dioxide 12 mmol/L (21-32) L* 12/29/17 21:18 Anion Gap 22.0 (6-13) H 12/29/17 21:18 BUN 28 mg/dL (6-20) H 12/29/17 21:18 Creatinine 1.8 mg/dL (0.4-1.0) H 12/29/17 21:18 Estimated GFR (MDRD) 30 (>89) L 12/29/17 21:18 Glucose 591 mg/dL (70-100) H* 12/29/17 22:12 Glycated Hemoglobin 14.3 % (4.6-6.2) H 12/29/17 20:10 Estim Average Glucose 364 (70-100) H 12/29/17 20:10 Calcium 8.7 mg/dL (8.5-10.3) 12/29/17 21:18 Magnesium 1.3 mg/dL (1.7-2.8) L 12/29/17 21:18 Total Bilirubin 1.9 mg/dL (0.2-1.0) H 12/29/17 17:10 AST 12 IU/L (10-42) 12/29/17 17:10 ALT 14 IU/L (10-60) 12/29/17 17:10 Alkaline Phosphatase 135 IU/L (42-121) H 12/29/17 17:10 Troponin I < 0.04 ng/mL (<0.49) 12/29/17 20:10 Total Protein 8.3 g/dL (6.7-8.2) H 12/29/17 17:10 Albumin 3.5 g/dL (3.2-5.5) 12/29/17 17:10 Globulin 4.8 g/dL (2.1-4.2) H 12/29/17 17:10 Albumin/Globulin Ratio 0.7 (1.0-2.2) L 12/29/17 17:10 Lipase 68 U/L (22-51) H 12/29/17 17:10 Urine Opiates Screen POSITIVE (NEGATIVE) H 12/29/17 18:50 Ur Oxycodone Screen NEGATIVE (NEGATIVE) 12/29/17 18:50 Urine Methadone Screen NEGATIVE (NEGATIVE) 12/29/17 18:50 Ur Propoxyphene Screen NEGATIVE (NEGATIVE) 12/29/17 18:50 Ur Barbiturates Screen NEGATIVE (NEGATIVE) 12/29/17 18:50 Ur Tricyclics Screen NEGATIVE (NEGATIVE) 12/29/17 18:50 Ur Phencyclidine Scrn NEGATIVE (NEGATIVE) 12/29/17 18:50 Ur Amphetamine Screen POSITIVE (NEGATIVE) H 12/29/17 18:50 U Methamphetamines Scrn POSITIVE (NEGATIVE) H 12/29/17 18:50 U Benzodiazepines Scrn NEGATIVE (NEGATIVE) 12/29/17 18:50 Urine Cocaine Screen NEGATIVE (NEGATIVE) 12/29/17 18:50 U Cannabinoids Screen NEGATIVE (NEGATIVE) 12/29/17 18:50 Ethyl Alcohol < 5.0 mg/dL 12/29/17 17:10 Serum Ketones LARGE (NEGATIVE) H 12/29/17 21:18 - Diagnostic Imaging Results Diagnostic Imaging Results: positive: Final report reviewed Diagnostic Imaging Results Comments: Chest x-ray Impression: Mild decrease in thickness of 4.7 x 2.1 cm opacity with a cavitation within it, consistent with improving cavitating pneumonia. Underlying lesion with surrounding consolidation is not excluded. Continued close follow-up is recommended to resolution Core Measures - Anticipated LOS I expect patient to be DC'd or transferred within 96 hours.: Yes - DVT/VTE - Prophylaxis VTE/DVT Prophylaxis med ordered at admit?: Yes
[2017-12-29 23:21] LABS: KETONES, SERUM (ACETEST) MODERATE (NEGATIVE)
[2017-12-29 23:27] LABS: BUN - BLOOD UREA NITROGEN 26 mg/dL (6-20); CALCIUM 8.7 mg/dL (8.5-10.3); CARBON DIOXIDE - CO2 16 mmol/L (21-32); CHLORIDE 95 mmol/L (101-111); CREATININE 1.5 mg/dL (0.4-1.0); GFR - MDRD 37 (>89); GLUCOSE 543 mg/dL (70-100); MAGNESIUM 1.2 mg/dL (1.7-2.8); SODIUM 129 mmol/L (135-145)
[2017-12-29] MEDS: MAGNESIUM SULFATE 2 GRAM 2 GM/50 ML BAG IV SCH (23:45)
[2017-12-29] MEDS ORDERED: VANCOMYCIN PER PHARMACY 1 GM in SODIUM CHLORIDE 0.9% 250 ML IV SCH (23:45)
[2017-12-30] MEDS: POTASSIUM CHLOR 10 MEQ/100 ML 10 MEQ/100 ML BAG IV SCH ×8 (00:05→08:34)
[2017-12-30 00:54] LABS: KETONES, SERUM (ACETEST) MODERATE (NEGATIVE)
[2017-12-30] MEDS ORDERED: VANCOMYCIN INJ 1 GM in SODIUM CHLORIDE 0.9% 250 ML IV SCH (01:00)
[2017-12-30 01:03] LABS: ALBUMIN 3.1 g/dL (3.2-5.5); ALBUMIN/GLOBULIN RATIO 0.6 (1.0-2.2); ALKALINE PHOSPHATASE 121 IU/L (42-121); ALT ALANINE AMINOTRANSFERASE 12 IU/L (10-60); AST ASPARTATE AMINOTRANSFERASE 14 IU/L (10-42); BILIRUBIN,TOTAL 1.3 mg/dL (0.2-1.0); BUN - BLOOD UREA NITROGEN 26 mg/dL (6-20); CALCIUM 9.1 mg/dL (8.5-10.3); CARBON DIOXIDE - CO2 15 mmol/L (21-32); CHLORIDE 95 mmol/L (101-111); CREATININE 1.5 mg/dL (0.4-1.0); GFR - MDRD 37 (>89); SODIUM 130 mmol/L (135-145); TOTAL PROTEIN 8.2 g/dL (6.7-8.2)
[2017-12-30 01:04] LABS: GLUCOSE 510 mg/dL (70-100)
[2017-12-30] MEDS: MAGNESIUM SULFATE 2 GRAM 2 GM/50 ML BAG IV SCH (01:09)
[2017-12-30] MEDS: FLUCONAZOLE 100 MG TABLET PO SCH (01:24)
[2017-12-30] MEDS: HYDROmorphone 2 MG/ML VIAL IVP PRN (01:42)
[2017-12-30] MEDS: SODIUM CHLORIDE FLUSH 0.9% 10 ML SYRINGE IVP SCH ×3 (02:11→17:01)
[2017-12-30 02:27] LABS: BILIRUBIN,URINE NEGATIVE (NEGATIVE); CLARITY,URINE CLEAR (CLEAR); GLUCOSE, URINE (UA) >=1000 mg/dL (NEGATIVE); KETONES,URINE (UA) >=80 mg/dL (NEGATIVE); LEUKOCYTE ESTERASE, URINE NEGATIVE (NEGATIVE); NITRITE,URINE NEGATIVE (NEGATIVE); OCCULT BLOOD,URINE SMALL (NEGATIVE); PH,URINE 5.5 PH (5.0-7.5); PROTEIN,URINE NEGATIVE (NEGATIVE); UROBILINOGEN,URINE 0.2 (NORMAL) E.U./dL (NORMAL)
[2017-12-30 02:29] LABS: KETONES, SERUM (ACETEST) MODERATE (NEGATIVE)
[2017-12-30 02:31] LABS: BACTERIA,URINE Rare /HPF (None Seen); SQUAMOUS EPITHELIAL CELL,UR RARE Squamous (<= Few)
[2017-12-30] MEDS: levoFLOXacin 750 MG/150 ML 750 MG/150 ML BAG IV SCH (02:32)
[2017-12-30 02:38] LABS: ALBUMIN 2.7 g/dL (3.2-5.5); ALBUMIN/GLOBULIN RATIO 0.6 (1.0-2.2); ALKALINE PHOSPHATASE 112 IU/L (42-121); ALT ALANINE AMINOTRANSFERASE 13 IU/L (10-60); AST ASPARTATE AMINOTRANSFERASE 12 IU/L (10-42); BUN - BLOOD UREA NITROGEN 25 mg/dL (6-20); CALCIUM 8.6 mg/dL (8.5-10.3); CARBON DIOXIDE - CO2 19 mmol/L (21-32); CHLORIDE 96 mmol/L (101-111); CREATININE 1.3 mg/dL (0.4-1.0); GFR - MDRD 43 (>89); GLUCOSE 386 mg/dL (70-100); SODIUM 128 mmol/L (135-145); TOTAL PROTEIN 7.4 g/dL (6.7-8.2)
[2017-12-30 03:28] LABS: GLUCOSE 362 mg/dL (70-100)
[2017-12-30 04:19] LABS: BASOPHILS # (AUTO) 0.1 10^3/uL (0.0-0.1); BASOPHILS % (AUTO) 0.5 %; EOSINOPHILS % (AUTO) 0.1 %; HGB - HEMOGLOBIN 11.8 g/dL (12.0-16.0); LYMPHOCYTES # (AUTO) 1.4 10^3/uL (1.5-3.5); LYMPHOCYTES % (AUTO) 8.8 %; MEAN CORPUSCULAR HEMOGLOBIN 31.1 pg (27.0-31.0); MEAN CORPUSCULAR HGB CONC 33.1 g/dL (32.0-36.0); MEAN CORPUSCULAR VOLUME 94.1 fL (81.0-99.0); MEAN PLATELET VOLUME 9.8 fL (7.9-10.8); MONOCYTES # (AUTO) 1.2 10^3/uL (0.0-1.0); MONOCYTES % (AUTO) 7.7 %; NEUTROPHILS # (AUTO) 13.4 10^3/uL (1.5-6.6); NEUTROPHILS % (AUTO) 82.9 %; PLT - PLATELET COUNT 437 10^3/uL (130-450); RED BLOOD COUNT 3.78 10^6/uL (4.20-5.40); RED CELL DISTRIBUTION WIDTH 13.2 % (12.0-15.0); WHITE BLOOD COUNT 16.1 x10^3/uL (4.8-10.8)
[2017-12-30 04:32] LABS: ALBUMIN 2.7 g/dL (3.2-5.5); ALBUMIN/GLOBULIN RATIO 0.6 (1.0-2.2); BILIRUBIN,TOTAL 0.6 mg/dL (0.2-1.0); CALCIUM 8.3 mg/dL (8.5-10.3); CREATININE 1.2 mg/dL (0.4-1.0); MAGNESIUM 2.6 mg/dL (1.7-2.8); PHOSPHORUS 1.6 mg/dL (2.5-4.6); TOTAL PROTEIN 7.2 g/dL (6.7-8.2)
[2017-12-30] MEDS: NS W/20 MEQ KCL 1,000 ML IV SCH (05:30)
[2017-12-30] MEDS: GABAPENTIN 100 MG CAPSULE PO SCH ×3 (05:49→22:11)
[2017-12-30] MEDS ORDERED: POTASSIUM PHOSPHATE 15 MMOL in SODIUM CHLORIDE 0.9% 250 ML IV ONE ×2 (06:56→16:00)
[2017-12-30] MEDS ORDERED: ENOXAPARIN 40 MG/0.4 ML SYRINGE SUBQ SCH (09:00)
--- NOTE | 2017-12-30 09:36 | CT Report ---
Procedure Date: 12/30/2017 Accession Number: [id number] / [id number] Procedure: CT - Chest W/O CPT Code: FULL RESULT: EXAM: CT CHEST EXAM DATE: 12/30/2017 06:27 AM. CLINICAL HISTORY: Assess cavitary pneumonia seen on CXR. COMPARISONS: None. TECHNIQUE: Routine helical CT imaging was performed through the chest. IV contrast: None. Reconstructions: Coronal and sagittal. In accordance with CT protocol optimization, one or more of the following dose reduction techniques were utilized for this exam: automated exposure control, adjustment of mA and/or KV based on patient size, or use of iterative reconstructive technique. FINDINGS: Lungs/Pleura: Right lower lobe 5.1 x 3.8 cm consolidation lateral segment with small air containing portions. Other smaller nodular areas of infiltrate in the right upper lobe, right lower lobe. Consolidation in the left lower lobe in anteromedial segment 5.1 x 4.4 cm. Underlying emphysematous changes with bullous changes Mediastinum: Subcentimeter high right paratracheal lymph nodes. Precarinal 1 cm lymph node. Subcarinal 1.4 cm lymph node. No pericardial effusion. Small hiatal hernia Bones: Old bilateral rib fractures Visualized Abdomen: Cholelithiasis. Calcifications in the pancreas. Mid body pancreas 5 mm cystic density versus pancreatic duct dilatation. Trace ascites Other: Calcification right thyroid gland IMPRESSION: 1. Right lower lobe consolidation 5.1 x 3.8 cm with cavitary portion. Smaller nodular infiltrates also in right upper lobe, progressive right lower lobe. 2. Left lower lobe 5.1 x 4.4 cm consolidation. 3. Mediastinal adenopathy. 4. Abdominal findings include cholelithiasis, chronic pancreatitis, 5 mm cystic density pancreatic body versus pancreatic ductal dilatation. 5. Recommend follow-up lung findings to clear. 6. Underlying emphysematous changes RADIA
[2017-12-30] MEDS: amLODIPine 5 MG TABLET PO SCH (10:00)
[2017-12-30] MEDS: ENOXAPARIN 30 MG/0.3 ML SYRINGE SUBQ SCH (10:01)
[2017-12-30] MEDS: ATORVASTATIN 10 MG TABLET PO SCH (10:01)
[2017-12-30] MEDS: FAMOTIDINE 20 MG TABLET PO SCH (10:01)
[2017-12-30] MEDS: D5.45NS W/20 MEQ KCL 1,000 ML IV SCH ×2 (11:00→19:08)
[2017-12-30 13:18] LABS: MAGNESIUM 1.7 mg/dL (1.7-2.8); PHOSPHORUS 1.8 mg/dL (2.5-4.6)
[2017-12-30 13:24] LABS: KETONES, SERUM (ACETEST) SMALL (NEGATIVE)
[2017-12-30] MEDS: LOSARTAN 50 MG TABLET PO SCH (13:41)
[2017-12-30] MEDS ORDERED: MAGNESIUM SULFATE 2 GRAM 2 GM/50 ML BAG IV ONE (14:32)
--- NOTE | 2017-12-30 15:47 | PROVIDER PROGRESS NOTE ---
Subjective - Prog Note Date Prog Note Date: 12/30/17 Prog Note Time: 15:45 - Subjective Pt reports feeling: Improved Subjective: Patient says that her abdominal pain is improved, but still present. She denies any fever, chills, night sweats, nausea, vomiting, diarrhea, or constipation. Current Medications - Current Medications Current Medications: Active Medications Generic Name Dose Route Start Last Admin Trade Name Freq PRN Reason Stop Dose Admin Acetaminophen 650 mg 12/29/17 19:14 Tylenol PO Q4HR PRN Pain 1 to 4 Amlodipine Besylate 10 mg 12/30/17 09:00 12/30/17 10:00 Norvasc PO 10 mg DAILY BRENDON Administration Atorvastatin Calcium 10 mg 12/30/17 09:00 12/30/17 10:01 Lipitor PO 10 mg DAILY BRENDON Administration Enoxaparin Sodium 30 mg 12/30/17 09:00 12/30/17 10:01 Lovenox SUBQ 30 mg DAILY BRENDON Administration Famotidine 20 mg 12/30/17 09:00 12/30/17 10:01 Pepcid PO 20 mg DAILY BRENDON Administration Fluconazole 150 mg 12/29/17 23:45 12/30/17 01:24 Diflucan PO 01/04/18 23:46 150 mg Q72H BRENDON Administration Gabapentin 300 mg 12/29/17 22:00 12/30/17 13:41 Neurontin PO 300 mg TID BRENDON Administration Hydromorphone HCl 2 mg 12/29/17 20:53 12/30/17 01:42 Dilaudid (Vial) IVP 2 mg Q2H PRN Administration PAIN Hydroxyzine Pamoate 50 mg 12/29/17 19:11 Vistaril PO Q6H PRN Anxiety Insulin Human Regular 100 unit 100 mls @ 4.53 mls/hr 12/29/17 19:14 12/30/17 13:00 / Sodium Chloride IV 4 unit/hr .Q22H5M BRENDON 4 mls/hr Protocol Titration 4.53 UNIT/HR Levofloxacin 750 mg in 150 mls @ 100 mls/hr 12/30/17 00:00 12/30/17 04:07 Levaquin 750 Mg/150 Ml IV Infused Q48H BRENDON Infusion Potassium Chloride/Dextrose/Sod Cl 1,000 mls @ 125 mls/hr 12/30/17 11:00 09/14 13:00 D5.45ns W/20 Meq Kcl IV 125 mls/hr .Q8H BRENDON Infusion Vancomycin HCl 1 gm/ Sodium 250 mls @ 167 mls/hr 12/30/17 22:00 Chloride IV Q18H BRENDON Potassium Phosphate 15 mmol/ 255 mls @ 63 mls/hr 12/30/17 16:00 Sodium Chloride IV 12/30/17 20:02 ONCE ONE Protocol Lorazepam 1 mg 12/29/17 19:11 12/29/17 21:03 Ativan PO 1 mg TID PRN Administration Agitation Losartan Potassium 100 mg 12/30/17 13:00 12/30/17 13:41 Cozaar PO 100 mg DAILY BRENDON Administration Ondansetron HCl 4 mg 12/29/17 19:14 Zofran Inj IVP Q6HR PRN Nausea / Vomiting Oxycodone HCl 5 mg 12/29/17 19:14 12/29/17 20:45 Roxicodone PO 5 mg Q4HR PRN Administration Pain 5 to 7 Oxycodone HCl 10 mg 12/29/17 20:53 Roxicodone PO Q4HR PRN PAIN Prochlorperazine Edisylate 10 mg 12/29/17 19:14 Compazine Inj IVP Q6HR PRN Nausea / Vomiting Sodium Chloride 10 ml 12/30/17 01:00 12/30/17 08:44 Normal Saline Flush 0.9% IVP Not Given 0100,0900,1700 [facility] Sodium Chloride 10 ml 12/29/17 19:14 Normal Saline Flush 0.9% IVP PRN PRN NEEDED PER PROVIDER ORDERS Sodium Chloride 1 gm 12/30/17 16:00 Salt Tab PO DAILY [facility] Zolpidem Tartrate 5 mg 12/29/17 19:14 Ambien PO QPM PRN Insomnia Allopurinol 100 mg PO DAILY 10/18/16 Atorvastatin [Lipitor] 10 mg PO DAILY 10/18/16 Losartan [Cozaar] 100 mg PO DAILY 10/18/16 Omeprazole 20 mg PO DAILY 10/18/16 metFORMIN [Glucophage] 1,000 mg PO BID 10/18/16 Insulin Glargine,Hum.rec.anlog [Basaglar Kwikpen U-100] 21 unit SQ DAILY Gabapentin 300 mg PO TID 08/07/17 Insulin Lispro [Humalog Kwikpen U-100] 5 units SUBQ TIDWM 08/07/17 hydrOXYzine HCl [Hydroxyzine HCl] 50 mg PO Q6H PRN 12/29/17 Mv,Ca,Min/Folic Acid/Vit K1 [One-A-Day Women's 50 Plus Tab] 1 each PO DAILY 09/14 Objective - Vital Signs/Intake & Output Reviewed Vital Signs: Yes Vital Signs: Vital Signs Temp Pulse Resp BP Pulse Ox 12/30/17 14:00 102 H 22 161/99 H 98 12/30/17 13:00 36.6 C 103 H 21 164/105 H 100 12/30/17 12:00 95 21 167/105 H 98 Intake & Output: Intake & Output 12/27/17 12/28/17 12/29/17 12/30/17 23:59 23:59 23:59 23:59 Intake Total 340.839 9242.866 Output Total 750 1000 Balance -208.123 7486.866 - Objective General Appearance: positive: No acute distress, Lethargic Eyes Bilateral: positive: Normal inspection, PERRL, EOMI, No lid inflammation, Conjunctivae nml, No scleral icterus ENT: positive: ENT inspection nml, Pharynx nml, No signs of dehydration Neck: positive: Nml inspection, Thyroid nml, No JVD, Trachea midline. negative : Thyromegaly Respiratory: positive: Chest non-tender, No respiratory distress, Breath sounds nml. negative: Wheezes, Rales, Rhonchi Cardiovascular: positive: Regular rate & rhythm, No murmur, No gallop Abdomen: positive: Non-tender, No organomegaly, Nml bowel sounds, No distention. negative: Guarding, Rebound, Mass Back: positive: Nml inspection. negative: CVA tenderness (R), CVA tenderness (L ) Skin: positive: Color nml, No rash, Warm, Dry. negative: Cyanosis Extremities: positive: Non-tender, Full ROM, Nml appearance, No pedal edema Neurologic/Psychiatric: positive: Oriented x3, CN's nml (2-12), Motor nml, Sensation nml, Mood/affect nml - Lab Results Fish Bones: 12/30/17 04:12 12/30/17 13:00 Other Labs: Lab Results x24hrs 12/30/17 12/30/17 12/30/17 Range/Units 15:11 14:19 14:07 WBC (4.8-10.8) x10^3/uL RBC (4.20-5.40) 10^6/uL Hgb (12.0-16.0) g/dL Hct (37.0-47.0) % MCV (81.0-99.0) fL MCH (27.0-31.0) pg MCHC (32.0-36.0) g/dL RDW (12.0-15.0) % Plt Count (130-450) 10^3/uL MPV (7.9-10.8) fL Neut # (Auto) (1.5-6.6) 10^3/uL Lymph # (Auto) (1.5-3.5) 10^3/uL [place] # (Auto) (0.0-1.0) 10^3/uL Eos # (Auto) (0.0-0.7) 10^3/uL Baso # (Auto) (0.0-0.1) 10^3/uL Absolute Nucleated RBC x10^3/uL Nucleated RBC % /100WBC Manual Slide Review Platelet Estimate (NORMAL) Platelet Morphology (NORMAL) RBC Morph Micro Appear (NORMAL) VBG pH (7.31-7.41) VBG pCO2 (41-51) mmHg VBG pO2 (25-47) mmHg VBG HCO3 (23-28) mmol/L VBG Total CO2 (24-29) mmol/L VBG O2 Saturation (60-80) % VBG Base Excess (-2 - +2) mmol/L Sodium (135-145) mmol/L Potassium (3.5-5.0) mmol/L Chloride (101-111) mmol/L Carbon Dioxide (21-32) mmol/L Anion Gap (6-13) BUN (6-20) mg/dL Creatinine (0.4-1.0) mg/dL Estimated GFR (MDRD) (>89) Glucose (70-100) mg/dL POC Whole Bld Glucose 178 H 169 H (70 - 100) mg/dL Glycated Hemoglobin (4.6-6.2) % Estim Average Glucose (70-100) Calcium (8.5-10.3) mg/dL Phosphorus (2.5-4.6) mg/dL Magnesium (1.7-2.8) mg/dL Total Bilirubin (0.2-1.0) mg/dL AST (10-42) IU/L ALT (10-60) IU/L Alkaline Phosphatase (42-121) IU/L Troponin I (<0.49) ng/mL Total Protein (6.7-8.2) g/dL Albumin (3.2-5.5) g/dL Globulin (2.1-4.2) g/dL Albumin/Globulin Ratio (1.0-2.2) Serum Ketones SMALL H (NEGATIVE) 12/30/17 12/30/17 12/30/17 Range/Units 13:21 13:00 13:00 WBC (4.8-10.8) x10^3/uL RBC (4.20-5.40) 10^6/uL Hgb (12.0-16.0) g/dL Hct (37.0-47.0) % MCV (81.0-99.0) fL MCH (27.0-31.0) pg MCHC (32.0-36.0) g/dL RDW (12.0-15.0) % Plt Count (130-450) 10^3/uL MPV (7.9-10.8) fL Neut # (Auto) (1.5-6.6) 10^3/uL Lymph # (Auto) (1.5-3.5) 10^3/uL [place] # (Auto) (0.0-1.0) 10^3/uL Eos # (Auto) (0.0-0.7) 10^3/uL Baso # (Auto) (0.0-0.1) 10^3/uL Absolute Nucleated RBC x10^3/uL Nucleated RBC % /100WBC Manual Slide Review Platelet Estimate (NORMAL) Platelet Morphology (NORMAL) RBC Morph Micro Appear (NORMAL) VBG pH (7.31-7.41) VBG pCO2 (41-51) mmHg VBG pO2 (25-47) mmHg VBG HCO3 (23-28) mmol/L VBG Total CO2 (24-29) mmol/L VBG O2 Saturation (60-80) % VBG Base Excess (-2 - +2) mmol/L Sodium (135-145) mmol/L Potassium 4.1 (3.5-5.0) mmol/L Chloride (101-111) mmol/L Carbon Dioxide (21-32) mmol/L Anion Gap (6-13) BUN (6-20) mg/dL Creatinine (0.4-1.0) mg/dL Estimated GFR (MDRD) (>89) Glucose (70-100) mg/dL POC Whole Bld Glucose 185 H (70 - 100) mg/dL Glycated Hemoglobin (4.6-6.2) % Estim Average Glucose (70-100) Calcium (8.5-10.3) mg/dL Phosphorus 1.8 L (2.5-4.6) mg/dL Magnesium 1.7 (1.7-2.8) mg/dL Total Bilirubin (0.2-1.0) mg/dL AST (10-42) IU/L ALT (10-60) IU/L Alkaline Phosphatase (42-121) IU/L Troponin I < 0.04 (<0.49) ng/mL Total Protein (6.7-8.2) g/dL Albumin (3.2-5.5) g/dL Globulin (2.1-4.2) g/dL Albumin/Globulin Ratio (1.0-2.2) Serum Ketones SMALL H (NEGATIVE) 12/30/17 12/30/17 12/30/17 Range/Units 12:01 11:20 10:46 WBC (4.8-10.8) x10^3/uL RBC (4.20-5.40) 10^6/uL Hgb (12.0-16.0) g/dL Hct (37.0-47.0) % MCV (81.0-99.0) fL MCH (27.0-31.0) pg MCHC (32.0-36.0) g/dL RDW (12.0-15.0) % Plt Count (130-450) 10^3/uL MPV (7.9-10.8) fL Neut # (Auto) (1.5-6.6) 10^3/uL Lymph # (Auto) (1.5-3.5) 10^3/uL [place] # (Auto) (0.0-1.0) 10^3/uL Eos # (Auto) (0.0-0.7) 10^3/uL Baso # (Auto) (0.0-0.1) 10^3/uL Absolute Nucleated RBC x10^3/uL Nucleated RBC % /100WBC Manual Slide Review Platelet Estimate (NORMAL) Platelet Morphology (NORMAL) RBC Morph Micro Appear (NORMAL) VBG pH (7.31-7.41) VBG pCO2 (41-51) mmHg VBG pO2 (25-47) mmHg VBG HCO3 (23-28) mmol/L VBG Total CO2 (24-29) mmol/L VBG O2 Saturation (60-80) % VBG Base Excess (-2 - +2) mmol/L Sodium (135-145) mmol/L Potassium (3.5-5.0) mmol/L Chloride (101-111) mmol/L Carbon Dioxide (21-32) mmol/L Anion Gap (6-13) BUN (6-20) mg/dL Creatinine (0.4-1.0) mg/dL Estimated GFR (MDRD) (>89) Glucose (70-100) mg/dL POC Whole Bld Glucose 167 H 156 H (70 - 100) mg/dL Glycated Hemoglobin (4.6-6.2) % Estim Average Glucose (70-100) Calcium (8.5-10.3) mg/dL Phosphorus (2.5-4.6) mg/dL Magnesium (1.7-2.8) mg/dL Total Bilirubin (0.2-1.0) mg/dL AST (10-42) IU/L ALT (10-60) IU/L Alkaline Phosphatase (42-121) IU/L Troponin I (<0.49) ng/mL Total Protein (6.7-8.2) g/dL Albumin (3.2-5.5) g/dL Globulin (2.1-4.2) g/dL Albumin/Globulin Ratio (1.0-2.2) Serum Ketones SMALL H (NEGATIVE) 12/30/17 12/30/17 12/30/17 Range/Units 10:14 09:22 08:19 WBC (4.8-10.8) x10^3/uL RBC (4.20-5.40) 10^6/uL Hgb (12.0-16.0) g/dL Hct (37.0-47.0) % MCV (81.0-99.0) fL MCH (27.0-31.0) pg MCHC (32.0-36.0) g/dL RDW (12.0-15.0) % Plt Count (130-450) 10^3/uL MPV (7.9-10.8) fL Neut # (Auto) (1.5-6.6) 10^3/uL Lymph # (Auto) (1.5-3.5) 10^3/uL [place] # (Auto) (0.0-1.0) 10^3/uL Eos # (Auto) (0.0-0.7) 10^3/uL Baso # (Auto) (0.0-0.1) 10^3/uL Absolute Nucleated RBC x10^3/uL Nucleated RBC % /100WBC Manual Slide Review Platelet Estimate (NORMAL) Platelet Morphology (NORMAL) RBC Morph Micro Appear (NORMAL) VBG pH (7.31-7.41) VBG pCO2 (41-51) mmHg VBG pO2 (25-47) mmHg VBG HCO3 (23-28) mmol/L VBG Total CO2 (24-29) mmol/L VBG O2 Saturation (60-80) % VBG Base Excess (-2 - +2) mmol/L Sodium (135-145) mmol/L Potassium (3.5-5.0) mmol/L Chloride (101-111) mmol/L Carbon Dioxide (21-32) mmol/L Anion Gap (6-13) BUN (6-20) mg/dL Creatinine (0.4-1.0) mg/dL Estimated GFR (MDRD) (>89) Glucose (70-100) mg/dL POC Whole Bld Glucose 179 H 198 H 234 H (70 - 100) mg/dL Glycated Hemoglobin (4.6-6.2) % Estim Average Glucose (70-100) Calcium (8.5-10.3) mg/dL Phosphorus (2.5-4.6) mg/dL Magnesium (1.7-2.8) mg/dL Total Bilirubin (0.2-1.0) mg/dL AST (10-42) IU/L ALT (10-60) IU/L Alkaline Phosphatase (42-121) IU/L Troponin I (<0.49) ng/mL Total Protein (6.7-8.2) g/dL Albumin (3.2-5.5) g/dL Globulin (2.1-4.2) g/dL Albumin/Globulin Ratio (1.0-2.2) Serum Ketones (NEGATIVE) 12/30/17 12/30/17 12/30/17 Range/Units 07:10 06:59 06:42 WBC (4.8-10.8) x10^3/uL RBC (4.20-5.40) 10^6/uL Hgb (12.0-16.0) g/dL Hct (37.0-47.0) % MCV (81.0-99.0) fL MCH (27.0-31.0) pg MCHC (32.0-36.0) g/dL RDW (12.0-15.0) % Plt Count (130-450) 10^3/uL MPV (7.9-10.8) fL Neut # (Auto) (1.5-6.6) 10^3/uL Lymph # (Auto) (1.5-3.5) 10^3/uL [place] # (Auto) (0.0-1.0) 10^3/uL Eos # (Auto) (0.0-0.7) 10^3/uL Baso # (Auto) (0.0-0.1) 10^3/uL Absolute Nucleated RBC x10^3/uL Nucleated RBC % /100WBC Manual Slide Review Platelet Estimate (NORMAL) Platelet Morphology (NORMAL) RBC Morph Micro Appear (NORMAL) VBG pH (7.31-7.41) VBG pCO2 (41-51) mmHg VBG pO2 (25-47) mmHg VBG HCO3 (23-28) mmol/L VBG Total CO2 (24-29) mmol/L VBG O2 Saturation (60-80) % VBG Base Excess (-2 - +2) mmol/L Sodium (135-145) mmol/L Potassium (3.5-5.0) mmol/L Chloride (101-111) mmol/L Carbon Dioxide (21-32) mmol/L Anion Gap (6-13) BUN (6-20) mg/dL Creatinine (0.4-1.0) mg/dL Estimated GFR (MDRD) (>89) Glucose (70-100) mg/dL POC Whole Bld Glucose 263 H (70 - 100) mg/dL Glycated Hemoglobin (4.6-6.2) % Estim Average Glucose (70-100) Calcium (8.5-10.3) mg/dL Phosphorus (2.5-4.6) mg/dL Magnesium (1.7-2.8) mg/dL Total Bilirubin (0.2-1.0) mg/dL AST (10-42) IU/L ALT (10-60) IU/L Alkaline Phosphatase (42-121) IU/L Troponin I < 0.04 (<0.49) ng/mL Total Protein (6.7-8.2) g/dL Albumin (3.2-5.5) g/dL Globulin (2.1-4.2) g/dL Albumin/Globulin Ratio (1.0-2.2) Serum Ketones SMALL H (NEGATIVE) 12/30/17 12/30/17 12/30/17 Range/Units 06:42 06:03 05:19 WBC (4.8-10.8) x10^3/uL RBC (4.20-5.40) 10^6/uL Hgb (12.0-16.0) g/dL Hct (37.0-47.0) % MCV (81.0-99.0) fL MCH (27.0-31.0) pg MCHC (32.0-36.0) g/dL RDW (12.0-15.0) % Plt Count (130-450) 10^3/uL MPV (7.9-10.8) fL Neut # (Auto) (1.5-6.6) 10^3/uL Lymph # (Auto) (1.5-3.5) 10^3/uL [place] # (Auto) (0.0-1.0) 10^3/uL Eos # (Auto) (0.0-0.7) 10^3/uL Baso # (Auto) (0.0-0.1) 10^3/uL Absolute Nucleated RBC x10^3/uL Nucleated RBC % /100WBC Manual Slide Review Platelet Estimate (NORMAL) Platelet Morphology (NORMAL) RBC Morph Micro Appear (NORMAL) VBG pH (7.31-7.41) VBG pCO2 (41-51) mmHg VBG pO2 (25-47) mmHg VBG HCO3 (23-28) mmol/L VBG Total CO2 (24-29) mmol/L VBG O2 Saturation (60-80) % VBG Base Excess (-2 - +2) mmol/L Sodium (135-145) mmol/L Potassium (3.5-5.0) mmol/L Chloride (101-111) mmol/L Carbon Dioxide (21-32) mmol/L Anion Gap (6-13) BUN (6-20) mg/dL Creatinine (0.4-1.0) mg/dL Estimated GFR (MDRD) (>89) Glucose 247 H (70-100) mg/dL POC Whole Bld Glucose 311 H 319 H (70 - 100) mg/dL Glycated Hemoglobin (4.6-6.2) % Estim Average Glucose (70-100) Calcium (8.5-10.3) mg/dL Phosphorus (2.5-4.6) mg/dL Magnesium (1.7-2.8) mg/dL Total Bilirubin (0.2-1.0) mg/dL AST (10-42) IU/L ALT (10-60) IU/L Alkaline Phosphatase (42-121) IU/L Troponin I (<0.49) ng/mL Total Protein (6.7-8.2) g/dL Albumin (3.2-5.5) g/dL Globulin (2.1-4.2) g/dL Albumin/Globulin Ratio (1.0-2.2) Serum Ketones (NEGATIVE) 12/30/17 12/30/17 12/30/17 Range/Units 04:12 04:12 04:12 WBC 16.1 H (4.8-10.8) x10^3/uL RBC 3.78 L (4.20-5.40) 10^6/uL Hgb 11.8 L (12.0-16.0) g/dL Hct 35.5 L (37.0-47.0) % MCV 94.1 (81.0-99.0) fL MCH 31.1 H (27.0-31.0) pg MCHC 33.1 (32.0-36.0) g/dL RDW 13.2 (12.0-15.0) % Plt Count 437 (130-450) 10^3/uL MPV 9.8 (7.9-10.8) fL Neut # (Auto) 13.4 H (1.5-6.6) 10^3/uL Lymph # (Auto) 1.4 L (1.5-3.5) 10^3/uL [place] # (Auto) 1.2 H (0.0-1.0) 10^3/uL Eos # (Auto) 0.0 (0.0-0.7) 10^3/uL Baso # (Auto) 0.1 (0.0-0.1) 10^3/uL Absolute Nucleated RBC 0.01 x10^3/uL Nucleated RBC % 0.1 /100WBC Manual Slide Review Platelet Estimate (NORMAL) Platelet Morphology (NORMAL) RBC Morph Micro Appear (NORMAL) VBG pH (7.31-7.41) VBG pCO2 (41-51) mmHg VBG pO2 (25-47) mmHg VBG HCO3 (23-28) mmol/L VBG Total CO2 (24-29) mmol/L VBG O2 Saturation (60-80) % VBG Base Excess (-2 - +2) mmol/L Sodium 130 L (135-145) mmol/L Potassium 3.8 (3.5-5.0) mmol/L Chloride 100 L (101-111) mmol/L Carbon Dioxide 19 L (21-32) mmol/L Anion Gap 11.0 (6-13) BUN 21 H (6-20) mg/dL Creatinine 1.2 H (0.4-1.0) mg/dL Estimated GFR (MDRD) 48 L (>89) Glucose 353 H (70-100) mg/dL POC Whole Bld Glucose (70 - 100) mg/dL Glycated Hemoglobin (4.6-6.2) % Estim Average Glucose (70-100) Calcium 8.3 L (8.5-10.3) mg/dL Phosphorus 1.6 L (2.5-4.6) mg/dL Magnesium 2.6 (1.7-2.8) mg/dL Total Bilirubin 0.6 (0.2-1.0) mg/dL AST 13 (10-42) IU/L ALT 12 (10-60) IU/L Alkaline Phosphatase 103 (42-121) IU/L Troponin I (<0.49) ng/mL Total Protein 7.2 (6.7-8.2) g/dL Albumin 2.7 L (3.2-5.5) g/dL Globulin 4.5 H (2.1-4.2) g/dL Albumin/Globulin Ratio 0.6 L (1.0-2.2) Serum Ketones MODERATE H (NEGATIVE) 12/30/17 12/30/17 12/30/17 Range/Units 03:15 02:16 01:14 WBC (4.8-10.8) x10^3/uL RBC (4.20-5.40) 10^6/uL Hgb (12.0-16.0) g/dL Hct (37.0-47.0) % MCV (81.0-99.0) fL MCH (27.0-31.0) pg MCHC (32.0-36.0) g/dL RDW (12.0-15.0) % Plt Count (130-450) 10^3/uL MPV (7.9-10.8) fL Neut # (Auto) (1.5-6.6) 10^3/uL Lymph # (Auto) (1.5-3.5) 10^3/uL [place] # (Auto) (0.0-1.0) 10^3/uL Eos # (Auto) (0.0-0.7) 10^3/uL Baso # (Auto) (0.0-0.1) 10^3/uL Absolute Nucleated RBC x10^3/uL Nucleated RBC % /100WBC Manual Slide Review Platelet Estimate (NORMAL) Platelet Morphology (NORMAL) RBC Morph Micro Appear (NORMAL) VBG pH (7.31-7.41) VBG pCO2 (41-51) mmHg VBG pO2 (25-47) mmHg VBG HCO3 (23-28) mmol/L VBG Total CO2 (24-29) mmol/L VBG O2 Saturation (60-80) % VBG Base Excess (-2 - +2) mmol/L Sodium 128 L (135-145) mmol/L Potassium 3.1 L (3.5-5.0) mmol/L Chloride 96 L (101-111) mmol/L Carbon Dioxide 19 L (21-32) mmol/L Anion Gap 13.0 (6-13) BUN 25 H (6-20) mg/dL Creatinine 1.3 H (0.4-1.0) mg/dL Estimated GFR (MDRD) 43 L (>89) Glucose 362 H 386 H 425 H (70-100) mg/dL POC Whole Bld Glucose (70 - 100) mg/dL Glycated Hemoglobin (4.6-6.2) % Estim Average Glucose (70-100) Calcium 8.6 (8.5-10.3) mg/dL Phosphorus (2.5-4.6) mg/dL Magnesium (1.7-2.8) mg/dL Total Bilirubin 1.0 (0.2-1.0) mg/dL AST 12 (10-42) IU/L ALT 13 (10-60) IU/L Alkaline Phosphatase 112 (42-121) IU/L Troponin I (<0.49) ng/mL Total Protein 7.4 (6.7-8.2) g/dL Albumin 2.7 L (3.2-5.5) g/dL Globulin 4.7 H (2.1-4.2) g/dL Albumin/Globulin Ratio 0.6 L (1.0-2.2) Serum Ketones LOAN MANAGER MODERATE H (NEGATIVE) 12/30/17 12/29/17 12/29/17 Range/Units 00:40 23:12 22:12 WBC (4.8-10.8) x10^3/uL RBC (4.20-5.40) 10^6/uL Hgb (12.0-16.0) g/dL Hct (37.0-47.0) % MCV (81.0-99.0) fL MCH (27.0-31.0) pg MCHC (32.0-36.0) g/dL RDW (12.0-15.0) % Plt Count (130-450) 10^3/uL MPV (7.9-10.8) fL Neut # (Auto) (1.5-6.6) 10^3/uL Lymph # (Auto) (1.5-3.5) 10^3/uL [place] # (Auto) (0.0-1.0) 10^3/uL Eos # (Auto) (0.0-0.7) 10^3/uL Baso # (Auto) (0.0-0.1) 10^3/uL Absolute Nucleated RBC x10^3/uL Nucleated RBC % /100WBC Manual Slide Review Platelet Estimate (NORMAL) Platelet Morphology (NORMAL) RBC Morph Micro Appear (NORMAL) VBG pH (7.31-7.41) VBG pCO2 (41-51) mmHg VBG pO2 (25-47) mmHg VBG HCO3 (23-28) mmol/L VBG Total CO2 (24-29) mmol/L VBG O2 Saturation (60-80) % VBG Base Excess (-2 - +2) mmol/L Sodium 130 L 129 L (135-145) mmol/L Potassium 3.3 L 2.7 L (3.5-5.0) mmol/L Chloride 95 L 95 L (101-111) mmol/L Carbon Dioxide 15 L 16 L (21-32) mmol/L Anion Gap 20.0 H 18.0 H (6-13) BUN 26 H 26 H (6-20) mg/dL Creatinine 1.5 H 1.5 H (0.4-1.0) mg/dL Estimated GFR (MDRD) 37 L 37 L (>89) Glucose 510 H* 543 H* 591 H* (70-100) mg/dL POC Whole Bld Glucose (70 - 100) mg/dL Glycated Hemoglobin (4.6-6.2) % Estim Average Glucose (70-100) Calcium 9.1 8.7 (8.5-10.3) mg/dL Phosphorus (2.5-4.6) mg/dL Magnesium 1.2 L (1.7-2.8) mg/dL Total Bilirubin 1.3 H (0.2-1.0) mg/dL AST 14 (10-42) IU/L ALT 12 (10-60) IU/L Alkaline Phosphatase 121 (42-121) IU/L Troponin I (<0.49) ng/mL Total Protein 8.2 (6.7-8.2) g/dL Albumin 3.1 L (3.2-5.5) g/dL Globulin 5.1 H (2.1-4.2) g/dL Albumin/Globulin Ratio 0.6 L (1.0-2.2) Serum Ketones MODERATE H MODERATE H (NEGATIVE) 12/29/17 12/29/17 12/29/17 Range/Units 21:18 20:10 20:10 WBC (4.8-10.8) x10^3/uL RBC (4.20-5.40) 10^6/uL Hgb (12.0-16.0) g/dL Hct (37.0-47.0) % MCV (81.0-99.0) fL MCH (27.0-31.0) pg MCHC (32.0-36.0) g/dL RDW (12.0-15.0) % Plt Count (130-450) 10^3/uL MPV (7.9-10.8) fL Neut # (Auto) (1.5-6.6) 10^3/uL Lymph # (Auto) (1.5-3.5) 10^3/uL [place] # (Auto) (0.0-1.0) 10^3/uL Eos # (Auto) (0.0-0.7) 10^3/uL Baso # (Auto) (0.0-0.1) 10^3/uL Absolute Nucleated RBC x10^3/uL Nucleated RBC % /100WBC Manual Slide Review Platelet Estimate (NORMAL) Platelet Morphology (NORMAL) RBC Morph Micro Appear (NORMAL) VBG pH (7.31-7.41) VBG pCO2 (41-51) mmHg VBG pO2 (25-47) mmHg VBG HCO3 (23-28) mmol/L VBG Total CO2 (24-29) mmol/L VBG O2 Saturation (60-80) % VBG Base Excess (-2 - +2) mmol/L Sodium 127 L (135-145) mmol/L Potassium 2.7 L (3.5-5.0) mmol/L Chloride 93 L (101-111) mmol/L Carbon Dioxide 12 L* (21-32) mmol/L Anion Gap 22.0 H (6-13) BUN 28 H (6-20) mg/dL Creatinine 1.8 H (0.4-1.0) mg/dL Estimated GFR (MDRD) 30 L (>89) Glucose 670 H* (70-100) mg/dL POC Whole Bld Glucose (70 - 100) mg/dL Glycated Hemoglobin (4.6-6.2) % Estim Average Glucose (70-100) Calcium 8.7 (8.5-10.3) mg/dL Phosphorus (2.5-4.6) mg/dL Magnesium 1.3 L (1.7-2.8) mg/dL Total Bilirubin (0.2-1.0) mg/dL AST (10-42) IU/L ALT (10-60) IU/L Alkaline Phosphatase (42-121) IU/L Troponin I < 0.04 (<0.49) ng/mL Total Protein (6.7-8.2) g/dL Albumin (3.2-5.5) g/dL Globulin (2.1-4.2) g/dL Albumin/Globulin Ratio (1.0-2.2) Serum Ketones LARGE H LARGE H (NEGATIVE) 12/29/17 12/29/17 12/29/17 Range/Units 20:10 20:10 20:10 WBC 17.7 H (4.8-10.8) x10^3/uL RBC 4.31 (4.20-5.40) 10^6/uL Hgb 13.6 (12.0-16.0) g/dL Hct 43.4 (37.0-47.0) % MCV 100.8 H (81.0-99.0) fL MCH 31.5 H (27.0-31.0) pg MCHC 31.3 L (32.0-36.0) g/dL RDW 14.3 (12.0-15.0) % Plt Count 435 (130-450) 10^3/uL MPV 10.2 (7.9-10.8) fL Neut # (Auto) 15.4 H (1.5-6.6) 10^3/uL Lymph # (Auto) 1.2 L (1.5-3.5) 10^3/uL [place] # (Auto) 1.0 (0.0-1.0) 10^3/uL Eos # (Auto) 0.0 (0.0-0.7) 10^3/uL Baso # (Auto) 0.1 (0.0-0.1) 10^3/uL Absolute Nucleated RBC 0.00 x10^3/uL Nucleated RBC % 0.0 /100WBC Manual Slide Review Indicated Platelet Estimate DECREASED (<130,000) (NORMAL) Platelet Morphology 3+ GIANT PLATELETS (NORMAL) RBC Morph Micro Appear NORMAL APPEARANCE (NORMAL) VBG pH 7.226 L (7.31-7.41) VBG pCO2 23.7 L (41-51) mmHg VBG pO2 42.5 (25-47) mmHg VBG HCO3 9.6 L (23-28) mmol/L VBG Total CO2 10.3 L (24-29) mmol/L VBG O2 Saturation 76.1 (60-80) % VBG Base Excess -16.1 L (-2 - +2) mmol/L Sodium (135-145) mmol/L Potassium (3.5-5.0) mmol/L Chloride (101-111) mmol/L Carbon Dioxide (21-32) mmol/L Anion Gap (6-13) BUN (6-20) mg/dL Creatinine (0.4-1.0) mg/dL Estimated GFR (MDRD) (>89) Glucose (70-100) mg/dL POC Whole Bld Glucose (70 - 100) mg/dL Glycated Hemoglobin 14.3 H (4.6-6.2) % Estim Average Glucose 364 H (70-100) Calcium (8.5-10.3) mg/dL Phosphorus (2.5-4.6) mg/dL Magnesium (1.7-2.8) mg/dL Total Bilirubin (0.2-1.0) mg/dL AST (10-42) IU/L ALT (10-60) IU/L Alkaline Phosphatase (42-121) IU/L Troponin I (<0.49) ng/mL Total Protein (6.7-8.2) g/dL Albumin (3.2-5.5) g/dL Globulin (2.1-4.2) g/dL Albumin/Globulin Ratio (1.0-2.2) Serum Ketones (NEGATIVE) 12/29/17 Range/Units 20:10 WBC (4.8-10.8) x10^3/uL RBC (4.20-5.40) 10^6/uL Hgb (12.0-16.0) g/dL Hct (37.0-47.0) % MCV (81.0-99.0) fL MCH (27.0-31.0) pg MCHC (32.0-36.0) g/dL RDW (12.0-15.0) % Plt Count (130-450) 10^3/uL MPV (7.9-10.8) fL Neut # (Auto) (1.5-6.6) 10^3/uL Lymph # (Auto) (1.5-3.5) 10^3/uL [place] # (Auto) (0.0-1.0) 10^3/uL Eos # (Auto) (0.0-0.7) 10^3/uL Baso # (Auto) (0.0-0.1) 10^3/uL Absolute Nucleated RBC x10^3/uL Nucleated RBC % /100WBC Manual Slide Review Platelet Estimate (NORMAL) Platelet Morphology (NORMAL) RBC Morph Micro Appear (NORMAL) VBG pH (7.31-7.41) VBG pCO2 (41-51) mmHg VBG pO2 (25-47) mmHg VBG HCO3 (23-28) mmol/L VBG Total CO2 (24-29) mmol/L VBG O2 Saturation (60-80) % VBG Base Excess (-2 - +2) mmol/L Sodium 127 L (135-145) mmol/L Potassium 3.0 L (3.5-5.0) mmol/L Chloride 92 L (101-111) mmol/L Carbon Dioxide 9 L* (21-32) mmol/L Anion Gap 26.0 H (6-13) BUN 28 H (6-20) mg/dL Creatinine 2.0 H (0.4-1.0) mg/dL Estimated GFR (MDRD) 26 L (>89) Glucose 744 H* (70-100) mg/dL POC Whole Bld Glucose (70 - 100) mg/dL Glycated Hemoglobin (4.6-6.2) % Estim Average Glucose (70-100) Calcium 8.8 (8.5-10.3) mg/dL Phosphorus (2.5-4.6) mg/dL Magnesium 1.4 L (1.7-2.8) mg/dL Total Bilirubin (0.2-1.0) mg/dL AST (10-42) IU/L ALT (10-60) IU/L Alkaline Phosphatase (42-121) IU/L Troponin I (<0.49) ng/mL Total Protein (6.7-8.2) g/dL Albumin (3.2-5.5) g/dL Globulin (2.1-4.2) g/dL Albumin/Globulin Ratio (1.0-2.2) Serum Ketones (NEGATIVE) - Diagnostic Imaging Diagnostic Imaging Results: positive: Final report reviewed Diagnostic Imaging Comments: EXAM: CHEST RADIOGRAPHY EXAM DATE: 12/29/2017 05:28 PM. CLINICAL HISTORY: Cough, h/o pneumonia. COMPARISON: [facility] W/PA CHEST RT 12/15/2017. TECHNIQUE: 1 view. FINDINGS: Lungs/Pleura: There is a 4.7 x 2.1 cm opacity in the right lower lung, decreased in thickness previously measuring 4.7 x 3.1 cm. There is a gas-filled cavitation Mediastinum: Heart and mediastinal contours are unremarkable. Other: None. IMPRESSION: Mild decrease in thickness of 4.7 x 2.1 cm opacity with a cavitation within it, consistent with improving cavitating pneumonia. Underlying lesion with surrounding consolidation is not excluded. Continued close follow-up is recommended to resolution. EXAM: CT CHEST EXAM DATE: 12/30/2017 06:27 AM. CLINICAL HISTORY: Assess cavitary pneumonia seen on CXR. COMPARISONS: None. TECHNIQUE: Routine helical CT imaging was performed through the chest. IV contrast: None. Reconstructions: Coronal and sagittal. In accordance with CT protocol optimization, one or more of the following dose reduction techniques were utilized for this exam: automated exposure control, adjustment of mA and/or KV based on patient size, or use of iterative reconstructive technique. FINDINGS: Lungs/Pleura: Right lower lobe 5.1 x 3.8 cm consolidation lateral segment with small air containing portions. Other smaller nodular areas of infiltrate in the right upper lobe, right lower lobe. Consolidation in the left lower lobe in anteromedial segment 5.1 x 4.4 cm. Underlying emphysematous changes with bullous changes Mediastinum: Subcentimeter high right paratracheal lymph nodes. Precarinal 1 cm lymph node. Subcarinal 1.4 cm lymph node. No pericardial effusion. Small hiatal hernia Bones: Old bilateral rib fractures Visualized Abdomen: Cholelithiasis. Calcifications in the pancreas. Mid body pancreas 5 mm cystic density versus pancreatic duct dilatation. Trace ascites Other: Calcification right thyroid gland IMPRESSION: 1. Right lower lobe consolidation 5.1 x 3.8 cm with cavitary portion. Smaller nodular infiltrates also in right upper lobe, progressive right lower lobe. 2. Left lower lobe 5.1 x 4.4 cm consolidation. 3. Mediastinal adenopathy. 4. Abdominal findings include cholelithiasis, chronic pancreatitis, 5 mm cystic density pancreatic body versus pancreatic ductal dilatation. 5. Recommend follow-up lung findings to clear. 6. Underlying emphysematous changes Assessment/Plan - Problem List (1) DKA (diabetic ketoacidoses) Impression: The patient reportedly stopped using insulin for between 3 and 5 days according to her roommate and was instead using heroin. She has had most of her electrolytes corrected however is still producing a small amount of ketones. We will continue to monitor the ketones and when they are resolved we will take the patient off of the insulin drip. Qualifiers: Diabetes mellitus type: type 2 Diabetes mellitus complication detail: without coma Qualified Code(s): E11.10 - Type 2 diabetes mellitus with ketoacidosis without coma (2) CAN (acute kidney injury) Impression: The patient typically has a creatinine which runs within normal limits. It was 2.1 on admission and is climbing down steadily to 1.2 approximately 24 hours later. Continue present care. (3) High anion gap metabolic acidosis Impression: The patient initially presented with a high anion gap metabolic acidosis secondary to diabetic ketoacidosis. I will recheck an ABG; it is expected that this is improved significantly as we have been treating the patient's ketoacidosis aggressively. (4) Hypertension Impression: The patient remains hypertensive despite being on Amlodipine, hydroxyzine, and losartan. Some component of the hypertension may be withdrawal symptoms but the patient otherwise appears to be comfortable at this time. We will add hydrochlorothiazide and beta-justen. Qualifiers: Hypertension type: essential hypertension Qualified Code(s): I10 - Essential (primary) hypertension (5) Hypokalemia Impression: We are correcting the hypokalemia with IV fluids and oral supplementation. We will continue to monitor. (6) Vaginal yeast infection Impression: We are currently treating the patient with Diflucan. Continue present care. (7) Abdominal pain Impression: Patient's abdominal pain is resolving but not completely resolved. It suspected that the patient has alcoholic gastritis. She is on a proton pump inhibitor and receiving pain medicine as needed. Continue present care. (8) Abscess Impression: The patient is an IV drug user and has multiple gluteal abscesses. She is currently on vancomycin and Levaquin for coverage. Her white blood cell count is slowly coming down. Continue present care. (9) Hyponatremia Impression: In looking at the patients sodium levels over the last 5 years the patient appears to be chronically hyponatremic. We will give her salt tablets and replacement fluids. (10) Pneumonia Impression: We are treating the patient with vancomycin and Levaquin which should cover her pneumonia. Will monitor serial chest x-rays and her leukocyte count. Qualifiers: Pneumonia type: due to unspecified organism Laterality: right Lung location: lower lobe of lung Qualified Code(s): J18.1 - Lobar pneumonia, unspecified organism (11) Polysubstance abuse Impression: The patient has a history of polysubstance abuse including methamphetamine, heroin, marijuana, and alcohol. She has been counseled multiple times on the need to quit the above. According to her roommate the patient has been using heroin for the last for 5 days and we will need to monitor her closely for signs of withdrawal. There are no such signs at this time.
[2017-12-30] MEDS: POTASSIUM CHLORIDE 20 MEQ TABLET PO SCH (16:41)
[2017-12-30] MEDS: METOPROLOL SUCCINATE 50 MG TABLET PO SCH (17:00)
[2017-12-30] MEDS: SODIUM CHLORIDE 1 GM TABLET PO SCH (17:00)
[2017-12-30] MEDS: hydroCHLOROthiazide 25 MG TABLET PO SCH (17:01)
[2017-12-30] MEDS: INSULIN REGULAR HUMAN 100 UNIT in SODIUM CHLORIDE 0.9% 100ML 99 ML IV SCH (17:36)
[2017-12-30] MEDS: VANCOMYCIN INJ 1 GM in SODIUM CHLORIDE 0.9% 250 ML IV SCH (22:11)
[2017-12-31] MEDS: HYDROmorphone 2 MG/ML VIAL IVP PRN ×4 (00:11→21:54)
[2017-12-31] MEDS: SODIUM CHLORIDE FLUSH 0.9% 10 ML SYRINGE IVP SCH ×3 (01:06→17:22)
[2017-12-31] MEDS ORDERED: SODIUM CHLORIDE 0.9% 500 ML IV PRN (02:47)
[2017-12-31] MEDS: D5.45NS W/20 MEQ KCL 1,000 ML IV SCH ×2 (03:15→14:45)
[2017-12-31 05:11] LABS: ALBUMIN 2.6 g/dL (3.2-5.5); ALBUMIN/GLOBULIN RATIO 0.6 (1.0-2.2); ALKALINE PHOSPHATASE 106 IU/L (42-121); ALT ALANINE AMINOTRANSFERASE 13 IU/L (10-60); AST ASPARTATE AMINOTRANSFERASE 19 IU/L (10-42); BILIRUBIN,TOTAL 0.3 mg/dL (0.2-1.0); BUN - BLOOD UREA NITROGEN 8 mg/dL (6-20); CALCIUM 7.9 mg/dL (8.5-10.3); CARBON DIOXIDE - CO2 19 mmol/L (21-32); CHLORIDE 102 mmol/L (101-111); CREATININE 0.5 mg/dL (0.4-1.0); GFR - MDRD 131 (>89); GLUCOSE 134 mg/dL (70-100); MAGNESIUM 1.5 mg/dL (1.7-2.8); PHOSPHORUS 1.7 mg/dL (2.5-4.6); SODIUM 128 mmol/L (135-145); TOTAL PROTEIN 6.8 g/dL (6.7-8.2)
[2017-12-31 05:13] LABS: BASOPHILS # (AUTO) 0.1 10^3/uL (0.0-0.1); BASOPHILS % (AUTO) 0.4 %; EOSINOPHILS % (AUTO) 0.3 %; HGB - HEMOGLOBIN 13.6 g/dL (12.0-16.0); LYMPHOCYTES # (AUTO) 1.8 10^3/uL (1.5-3.5); LYMPHOCYTES % (AUTO) 11.9 %; MEAN CORPUSCULAR HGB CONC 34.1 g/dL (32.0-36.0); MEAN PLATELET VOLUME 10.5 fL (7.9-10.8); MONOCYTES # (AUTO) 1.1 10^3/uL (0.0-1.0); MONOCYTES % (AUTO) 7.4 %; PLT - PLATELET COUNT 437 10^3/uL (130-450); RED BLOOD COUNT 4.25 10^6/uL (4.20-5.40); RED CELL DISTRIBUTION WIDTH 13.5 % (12.0-15.0)
[2017-12-31 05:24] LABS: KETONES, SERUM (ACETEST) NEGATIVE (NEGATIVE)
[2017-12-31] MEDS ORDERED: MAGNESIUM SULFATE 2 GRAM 2 GM/50 ML BAG IV ONE (05:38)
[2017-12-31] MEDS ORDERED: POTASSIUM PHOSPHATE 15 MMOL in SODIUM CHLORIDE 0.9% 250 ML IV ONE (05:40)
[2017-12-31] MEDS ORDERED: POTASSIUM CHLOR 20 MEQ/100 ML 20 MEQ/100 ML BAG IV SCH (06:00)
[2017-12-31] MEDS: GABAPENTIN 100 MG CAPSULE PO SCH ×3 (06:14→21:33)
[2017-12-31] MEDS: POTASSIUM CHLOR 10 MEQ/100 ML 10 MEQ/100 ML BAG IV SCH ×4 (06:30→09:45)
[2017-12-31] MEDS: INSULIN GLARGINE 300 UNIT/3 ML PEN SUBQ SCH (07:27)
[2017-12-31] MEDS: hydroCHLOROthiazide 25 MG TABLET PO SCH (09:54)
[2017-12-31] MEDS: amLODIPine 5 MG TABLET PO SCH (09:55)
[2017-12-31] MEDS: METOPROLOL SUCCINATE 50 MG TABLET PO SCH (09:55)
[2017-12-31] MEDS: POTASSIUM CHLORIDE 20 MEQ TABLET PO SCH (09:56)
[2017-12-31] MEDS: LOSARTAN 50 MG TABLET PO SCH (09:56)
[2017-12-31] MEDS: SODIUM CHLORIDE 1 GM TABLET PO SCH ×3 (09:57→21:33)
[2017-12-31] MEDS: INSULIN ASPART 300 UNIT/3 ML PEN SUBQ SCH ×7 (09:58→21:34)
[2017-12-31] MEDS: FAMOTIDINE 20 MG TABLET PO SCH (09:58)
[2017-12-31] MEDS: ATORVASTATIN 10 MG TABLET PO SCH (10:01)
[2017-12-31] MEDS: ENOXAPARIN 30 MG/0.3 ML SYRINGE SUBQ SCH (10:05)
--- NOTE | 2017-12-31 15:41 | PROVIDER PROGRESS NOTE ---
Subjective - Prog Note Date Prog Note Date: 12/31/17 Prog Note Time: 14:15 - Subjective Pt reports feeling: Improved Subjective: The patient is much more alert and oriented today than she has been at any time during her admission. She is breathing easily. She denies any fevers or chills , shortness of breath or chest pain. Her appetite is improved today. Current Medications - Current Medications Current Medications: Active Medications Generic Name Dose Route Start Last Admin Trade Name Freq PRN Reason Stop Dose Admin Acetaminophen 650 mg 12/29/17 19:14 Tylenol PO Q4HR PRN Pain 1 to 4 Amlodipine Besylate 10 mg 12/30/17 09:00 12/31/17 09:55 Norvasc PO 10 mg DAILY BRENDON Administration Atorvastatin Calcium 10 mg 12/30/17 09:00 12/31/17 10:01 Lipitor PO 10 mg DAILY BRENDON Administration Enoxaparin Sodium 30 mg 12/30/17 09:00 12/31/17 10:05 Lovenox SUBQ 30 mg DAILY BRENDON Administration Famotidine 20 mg 12/30/17 09:00 12/31/17 09:58 Pepcid PO 20 mg DAILY BRENDON Administration Fluconazole 150 mg 12/29/17 23:45 12/30/17 01:24 Diflucan PO 01/04/18 23:46 150 mg Q72H BRENDON Administration Gabapentin 300 mg 12/29/17 22:00 12/31/17 14:05 Neurontin PO 300 mg TID BRENDON Administration Hydrochlorothiazide 25 mg 12/30/17 17:00 12/31/17 09:54 Hydrodiuril PO 25 mg DAILY BRENDON Administration Hydromorphone HCl 2 mg 12/29/17 20:53 12/31/17 07:46 Dilaudid (Vial) IVP 2 mg Q2H PRN Administration PAIN Hydroxyzine Pamoate 50 mg 12/29/17 19:11 Vistaril PO Q6H PRN Anxiety Levofloxacin 750 mg in 150 mls @ 100 mls/hr 12/30/17 00:00 12/30/17 04:07 Levaquin 750 Mg/150 Ml IV Infused Q48H BRENDON Infusion Vancomycin HCl 1 gm/ Sodium 250 mls @ 167 mls/hr 12/30/17 22:00 12/31/17 01: 11 Chloride IV Infused Q18H BRENDON Infusion Sodium Chloride 500 mls @ 0 mls/hr 12/31/17 02:47 12/31/17 07:01 Normal Saline 0.9% IV Infused Q24H PRN Infusion TKO RATE TKO Magnesium Sulfate 2 gm in 50 mls @ 50 mls/hr 12/31/17 16:00 Magnesium Sulfate IV 12/31/17 17:59 Q1H BRENDON Sodium Phosphate 20 mmol/ 256.6667 mls @ 41 mls/hr 12/31/17 15:36 Sodium Chloride IV 12/31/17 21:51 ONCE ONE Insulin Aspart 5 unit 12/31/17 08:00 12/31/17 09:58 Novolog SUBQ Not Given QDBREAKFAST BREND[facility] Protocol Insulin Aspart 5 unit 12/31/17 12:00 12/31/17 11:54 Novolog SUBQ 5 unit QDLUNCH BRENDON Administration Protocol Insulin Aspart 5 unit 12/31/17 17:00 Novolog SUBQ [facility]NER [facility] Protocol Insulin Aspart 1 - 9 unit 12/31/17 08:00 12/31/17 11:55 Novolog SUBQ 3 unit 0800,1200,1700,2100 BRENDON Administration Protocol Insulin Glargine 21 unit 12/31/17 06:48 12/31/17 07:27 Lantus Solostar SUBQ 21 unit DAILY BRENDON Administration Lorazepam 1 mg 12/29/17 19:11 12/29/17 21:03 Ativan PO 1 mg TID PRN Administration Agitation Losartan Potassium 100 mg 12/30/17 13:00 12/31/17 09:56 Cozaar PO 100 mg DAILY BRENDON Administration Metoprolol Succinate 50 mg 12/30/17 17:00 12/31/17 09:55 Toprol Xl PO 50 mg DAILY BRENDON Administration Ondansetron HCl 4 mg 12/29/17 19:14 Zofran Inj IVP Q6HR PRN Nausea / Vomiting Oxycodone HCl 5 mg 12/29/17 19:14 12/29/17 20:45 Roxicodone PO 5 mg Q4HR PRN Administration Pain 5 to 7 Oxycodone HCl 10 mg 12/29/17 20:53 Roxicodone PO Q4HR PRN PAIN Potassium Chloride 20 meq 12/30/17 17:00 12/31/17 09:56 K-Dur PO 20 meq DAILYWM BRENDON Administration Prochlorperazine Edisylate 10 mg 12/29/17 19:14 Compazine Inj IVP Q6HR PRN Nausea / Vomiting Sodium Chloride 10 ml 12/30/17 01:00 12/31/17 09:56 Normal Saline Flush 0.9% IVP 10 ml 0100,0900,1700 BREND[facility] Administration Sodium Chloride 10 ml 12/29/17 19:14 Normal Saline Flush 0.9% IVP PRN PRN NEEDED PER PROVIDER ORDERS Sodium Chloride 1 gm 12/31/17 16:00 Salt Tab PO TID [facility] Sodium Phosphate 250 mg 12/31/17 16:00 K-Phos Neutral PO TIDWM BRENDON Zolpidem Tartrate 5 mg 12/29/17 19:14 Ambien PO QPM PRN Insomnia Allopurinol 100 mg PO DAILY 10/18/16 Atorvastatin [Lipitor] 10 mg PO DAILY 10/18/16 Losartan [Cozaar] 100 mg PO DAILY 10/18/16 Omeprazole 20 mg PO DAILY 10/18/16 metFORMIN [Glucophage] 1,000 mg PO BID 10/18/16 Insulin Glargine,Hum.rec.anlog [Basaglar Kwikpen U-100] 21 unit SQ DAILY Gabapentin 300 mg PO TID 08/07/17 Insulin Lispro [Humalog Kwikpen U-100] 5 units SUBQ TIDWM 08/07/17 hydrOXYzine HCl [Hydroxyzine HCl] 50 mg PO Q6H PRN 12/29/17 Mv,Ca,Min/Folic Acid/Vit K1 [One-A-Day Women's 50 Plus Tab] 1 each PO DAILY 09/14 Objective - Vital Signs/Intake & Output Reviewed Vital Signs: Yes Vital Signs: Vital Signs Pulse Resp BP Pulse Ox 12/31/17 13:00 89 13 115/88 H 97 Intake & Output: Intake & Output 12/28/17 12/29/17 12/30/17 12/31/17 23:59 23:59 23:59 23:59 Intake Total 830.684 1081.266 3306.267 Output Total 750 2350 350 Balance -203.972 9705.266 2956.267 - Objective General Appearance: positive: No acute distress, Alert Eyes Bilateral: positive: Normal inspection, PERRL, EOMI, No lid inflammation, Conjunctivae nml, No scleral icterus ENT: positive: ENT inspection nml, Pharynx nml, No signs of dehydration Neck: positive: Nml inspection, Thyroid nml, No JVD, Trachea midline. negative : Thyromegaly Respiratory: positive: Chest non-tender, No respiratory distress, Breath sounds nml. negative: Wheezes, Rales, Rhonchi Cardiovascular: positive: Regular rate & rhythm, No murmur, No gallop Abdomen: positive: Non-tender, No organomegaly, Nml bowel sounds, No distention. negative: Guarding, Rebound Back: positive: Nml inspection. negative: CVA tenderness (R), CVA tenderness (L ) Skin: positive: Color nml, No rash, Warm, Dry. negative: Cyanosis Extremities: positive: Non-tender, Full ROM, Nml appearance, No pedal edema Neurologic/Psychiatric: positive: Oriented x3, CN's nml (2-12), Motor nml, Sensation nml, Mood/affect nml - Lab Results Fish Bones: 12/31/17 04:40 12/31/17 04:40 Other Labs: Lab Results x24hrs 12/31/17 12/31/17 12/31/17 Range/Units 11:49 07:55 07:05 WBC (4.8-10.8) x10^3/uL RBC (4.20-5.40) 10^6/uL Hgb (12.0-16.0) g/dL Hct (37.0-47.0) % MCV (81.0-99.0) fL MCH (27.0-31.0) pg MCHC (32.0-36.0) g/dL RDW (12.0-15.0) % Plt Count (130-450) 10^3/uL MPV (7.9-10.8) fL Neut # (Auto) (1.5-6.6) 10^3/uL Lymph # (Auto) (1.5-3.5) 10^3/uL [place] # (Auto) (0.0-1.0) 10^3/uL Eos # (Auto) (0.0-0.7) 10^3/uL Baso # (Auto) (0.0-0.1) 10^3/uL Absolute Nucleated RBC x10^3/uL Nucleated RBC % /100WBC Sodium (135-145) mmol/L Potassium (3.5-5.0) mmol/L Chloride (101-111) mmol/L Carbon Dioxide (21-32) mmol/L Anion Gap (6-13) BUN (6-20) mg/dL Creatinine (0.4-1.0) mg/dL Estimated GFR (MDRD) (>89) Glucose (70-100) mg/dL POC Whole Bld Glucose 213 H 90 86 (70 - 100) mg/dL Calcium (8.5-10.3) mg/dL Phosphorus (2.5-4.6) mg/dL Magnesium (1.7-2.8) mg/dL Total Bilirubin (0.2-1.0) mg/dL AST (10-42) IU/L ALT (10-60) IU/L Alkaline Phosphatase (42-121) IU/L Total Protein (6.7-8.2) g/dL Albumin (3.2-5.5) g/dL Globulin (2.1-4.2) g/dL Albumin/Globulin Ratio (1.0-2.2) Serum Ketones (NEGATIVE) 12/31/17 12/31/17 12/31/17 Range/Units 06:11 05:06 04:40 WBC (4.8-10.8) x10^3/uL RBC (4.20-5.40) 10^6/uL Hgb (12.0-16.0) g/dL Hct (37.0-47.0) % MCV (81.0-99.0) fL MCH (27.0-31.0) pg MCHC (32.0-36.0) g/dL RDW (12.0-15.0) % Plt Count (130-450) 10^3/uL MPV (7.9-10.8) fL Neut # (Auto) (1.5-6.6) 10^3/uL Lymph # (Auto) (1.5-3.5) 10^3/uL [place] # (Auto) (0.0-1.0) 10^3/uL Eos # (Auto) (0.0-0.7) 10^3/uL Baso # (Auto) (0.0-0.1) 10^3/uL Absolute Nucleated RBC x10^3/uL Nucleated RBC % /100WBC Sodium 128 L (135-145) mmol/L Potassium 3.2 L (3.5-5.0) mmol/L Chloride 102 (101-111) mmol/L Carbon Dioxide 19 L (21-32) mmol/L Anion Gap 7.0 (6-13) BUN 8 (6-20) mg/dL Creatinine 0.5 (0.4-1.0) mg/dL Estimated GFR (MDRD) 131 (>89) Glucose 134 H (70-100) mg/dL POC Whole Bld Glucose 128 H 125 H (70 - 100) mg/dL Calcium 7.9 L (8.5-10.3) mg/dL Phosphorus 1.7 L (2.5-4.6) mg/dL Magnesium 1.5 L (1.7-2.8) mg/dL Total Bilirubin 0.3 (0.2-1.0) mg/dL AST 19 (10-42) IU/L ALT 13 (10-60) IU/L Alkaline Phosphatase 106 (42-121) IU/L Total Protein 6.8 (6.7-8.2) g/dL Albumin 2.6 L (3.2-5.5) g/dL Globulin 4.2 (2.1-4.2) g/dL Albumin/Globulin Ratio 0.6 L (1.0-2.2) Serum Ketones NEGATIVE (NEGATIVE) 12/31/17 12/31/17 12/31/17 Range/Units 04:40 04:10 03:10 WBC 15.0 H (4.8-10.8) x10^3/uL RBC 4.25 (4.20-5.40) 10^6/uL Hgb 13.6 (12.0-16.0) g/dL Hct 39.9 (37.0-47.0) % MCV 94.0 (81.0-99.0) fL MCH 32.0 H (27.0-31.0) pg MCHC 34.1 (32.0-36.0) g/dL RDW 13.5 (12.0-15.0) % Plt Count 437 (130-450) 10^3/uL MPV 10.5 (7.9-10.8) fL Neut # (Auto) 12.0 H (1.5-6.6) 10^3/uL Lymph # (Auto) 1.8 (1.5-3.5) 10^3/uL [place] # (Auto) 1.1 H (0.0-1.0) 10^3/uL Eos # (Auto) 0.0 (0.0-0.7) 10^3/uL Baso # (Auto) 0.1 (0.0-0.1) 10^3/uL Absolute Nucleated RBC 0.01 x10^3/uL Nucleated RBC % 0.1 /100WBC Sodium (135-145) mmol/L Potassium (3.5-5.0) mmol/L Chloride (101-111) mmol/L Carbon Dioxide (21-32) mmol/L Anion Gap (6-13) BUN (6-20) mg/dL Creatinine (0.4-1.0) mg/dL Estimated GFR (MDRD) (>89) Glucose (70-100) mg/dL POC Whole Bld Glucose 135 H 170 H (70 - 100) mg/dL Calcium (8.5-10.3) mg/dL Phosphorus (2.5-4.6) mg/dL Magnesium (1.7-2.8) mg/dL Total Bilirubin (0.2-1.0) mg/dL AST (10-42) IU/L ALT (10-60) IU/L Alkaline Phosphatase (42-121) IU/L Total Protein (6.7-8.2) g/dL Albumin (3.2-5.5) g/dL Globulin (2.1-4.2) g/dL Albumin/Globulin Ratio (1.0-2.2) Serum Ketones (NEGATIVE) 12/31/17 12/31/17 12/31/17 Range/Units 02:03 01:06 00:03 WBC (4.8-10.8) x10^3/uL RBC (4.20-5.40) 10^6/uL Hgb (12.0-16.0) g/dL Hct (37.0-47.0) % MCV (81.0-99.0) fL MCH (27.0-31.0) pg MCHC (32.0-36.0) g/dL RDW (12.0-15.0) % Plt Count (130-450) 10^3/uL MPV (7.9-10.8) fL Neut # (Auto) (1.5-6.6) 10^3/uL Lymph # (Auto) (1.5-3.5) 10^3/uL [place] # (Auto) (0.0-1.0) 10^3/uL Eos # (Auto) (0.0-0.7) 10^3/uL Baso # (Auto) (0.0-0.1) 10^3/uL Absolute Nucleated RBC x10^3/uL Nucleated RBC % /100WBC Sodium (135-145) mmol/L Potassium (3.5-5.0) mmol/L Chloride (101-111) mmol/L Carbon Dioxide (21-32) mmol/L Anion Gap (6-13) BUN (6-20) mg/dL Creatinine (0.4-1.0) mg/dL Estimated GFR (MDRD) (>89) Glucose (70-100) mg/dL POC Whole Bld Glucose 145 H 146 H 147 H (70 - 100) mg/dL Calcium (8.5-10.3) mg/dL Phosphorus (2.5-4.6) mg/dL Magnesium (1.7-2.8) mg/dL Total Bilirubin (0.2-1.0) mg/dL AST (10-42) IU/L ALT (10-60) IU/L Alkaline Phosphatase (42-121) IU/L Total Protein (6.7-8.2) g/dL Albumin (3.2-5.5) g/dL Globulin (2.1-4.2) g/dL Albumin/Globulin Ratio (1.0-2.2) Serum Ketones (NEGATIVE) 12/30/17 12/30/17 12/30/17 Range/Units 23:05 22:10 21:15 WBC (4.8-10.8) x10^3/uL RBC (4.20-5.40) 10^6/uL Hgb (12.0-16.0) g/dL Hct (37.0-47.0) % MCV (81.0-99.0) fL MCH (27.0-31.0) pg MCHC (32.0-36.0) g/dL RDW (12.0-15.0) % Plt Count (130-450) 10^3/uL MPV (7.9-10.8) fL Neut # (Auto) (1.5-6.6) 10^3/uL Lymph # (Auto) (1.5-3.5) 10^3/uL [place] # (Auto) (0.0-1.0) 10^3/uL Eos # (Auto) (0.0-0.7) 10^3/uL Baso # (Auto) (0.0-0.1) 10^3/uL Absolute Nucleated RBC x10^3/uL Nucleated RBC % /100WBC Sodium (135-145) mmol/L Potassium (3.5-5.0) mmol/L Chloride (101-111) mmol/L Carbon Dioxide (21-32) mmol/L Anion Gap (6-13) BUN (6-20) mg/dL Creatinine (0.4-1.0) mg/dL Estimated GFR (MDRD) (>89) Glucose (70-100) mg/dL POC Whole Bld Glucose 149 H 146 H (70 - 100) mg/dL Calcium (8.5-10.3) mg/dL Phosphorus (2.5-4.6) mg/dL Magnesium (1.7-2.8) mg/dL Total Bilirubin (0.2-1.0) mg/dL AST (10-42) IU/L ALT (10-60) IU/L Alkaline Phosphatase (42-121) IU/L Total Protein (6.7-8.2) g/dL Albumin (3.2-5.5) g/dL Globulin (2.1-4.2) g/dL Albumin/Globulin Ratio (1.0-2.2) Serum Ketones SMALL H (NEGATIVE) 12/30/17 12/30/17 12/30/17 Range/Units 21:08 20:02 19:06 WBC (4.8-10.8) x10^3/uL RBC (4.20-5.40) 10^6/uL Hgb (12.0-16.0) g/dL Hct (37.0-47.0) % MCV (81.0-99.0) fL MCH (27.0-31.0) pg MCHC (32.0-36.0) g/dL RDW (12.0-15.0) % Plt Count (130-450) 10^3/uL MPV (7.9-10.8) fL Neut # (Auto) (1.5-6.6) 10^3/uL Lymph # (Auto) (1.5-3.5) 10^3/uL [place] # (Auto) (0.0-1.0) 10^3/uL Eos # (Auto) (0.0-0.7) 10^3/uL Baso # (Auto) (0.0-0.1) 10^3/uL Absolute Nucleated RBC x10^3/uL Nucleated RBC % /100WBC Sodium (135-145) mmol/L Potassium (3.5-5.0) mmol/L Chloride (101-111) mmol/L Carbon Dioxide (21-32) mmol/L Anion Gap (6-13) BUN (6-20) mg/dL Creatinine (0.4-1.0) mg/dL Estimated GFR (MDRD) (>89) Glucose (70-100) mg/dL POC Whole Bld Glucose 153 H 165 H 187 H (70 - 100) mg/dL Calcium (8.5-10.3) mg/dL Phosphorus (2.5-4.6) mg/dL Magnesium (1.7-2.8) mg/dL Total Bilirubin (0.2-1.0) mg/dL AST (10-42) IU/L ALT (10-60) IU/L Alkaline Phosphatase (42-121) IU/L Total Protein (6.7-8.2) g/dL Albumin (3.2-5.5) g/dL Globulin (2.1-4.2) g/dL Albumin/Globulin Ratio (1.0-2.2) Serum Ketones (NEGATIVE) 12/30/17 12/30/17 12/30/17 Range/Units 18:21 17:53 17:24 WBC (4.8-10.8) x10^3/uL RBC (4.20-5.40) 10^6/uL Hgb (12.0-16.0) g/dL Hct (37.0-47.0) % MCV (81.0-99.0) fL MCH (27.0-31.0) pg MCHC (32.0-36.0) g/dL RDW (12.0-15.0) % Plt Count (130-450) 10^3/uL MPV (7.9-10.8) fL Neut # (Auto) (1.5-6.6) 10^3/uL Lymph # (Auto) (1.5-3.5) 10^3/uL [place] # (Auto) (0.0-1.0) 10^3/uL Eos # (Auto) (0.0-0.7) 10^3/uL Baso # (Auto) (0.0-0.1) 10^3/uL Absolute Nucleated RBC x10^3/uL Nucleated RBC % /100WBC Sodium (135-145) mmol/L Potassium (3.5-5.0) mmol/L Chloride (101-111) mmol/L Carbon Dioxide (21-32) mmol/L Anion Gap (6-13) BUN (6-20) mg/dL Creatinine (0.4-1.0) mg/dL Estimated GFR (MDRD) (>89) Glucose (70-100) mg/dL POC Whole Bld Glucose 181 H 183 H (70 - 100) mg/dL Calcium (8.5-10.3) mg/dL Phosphorus (2.5-4.6) mg/dL Magnesium (1.7-2.8) mg/dL Total Bilirubin (0.2-1.0) mg/dL AST (10-42) IU/L ALT (10-60) IU/L Alkaline Phosphatase (42-121) IU/L Total Protein (6.7-8.2) g/dL Albumin (3.2-5.5) g/dL Globulin (2.1-4.2) g/dL Albumin/Globulin Ratio (1.0-2.2) Serum Ketones SMALL H (NEGATIVE) 12/30/17 12/30/17 Range/Units 16:16 16:15 WBC (4.8-10.8) x10^3/uL RBC (4.20-5.40) 10^6/uL Hgb (12.0-16.0) g/dL Hct (37.0-47.0) % MCV (81.0-99.0) fL MCH (27.0-31.0) pg MCHC (32.0-36.0) g/dL RDW (12.0-15.0) % Plt Count (130-450) 10^3/uL MPV (7.9-10.8) fL Neut # (Auto) (1.5-6.6) 10^3/uL Lymph # (Auto) (1.5-3.5) 10^3/uL [place] # (Auto) (0.0-1.0) 10^3/uL Eos # (Auto) (0.0-0.7) 10^3/uL Baso # (Auto) (0.0-0.1) 10^3/uL Absolute Nucleated RBC x10^3/uL Nucleated RBC % /100WBC Sodium (135-145) mmol/L Potassium (3.5-5.0) mmol/L Chloride (101-111) mmol/L Carbon Dioxide (21-32) mmol/L Anion Gap (6-13) BUN (6-20) mg/dL Creatinine (0.4-1.0) mg/dL Estimated GFR (MDRD) (>89) Glucose (70-100) mg/dL POC Whole Bld Glucose 177 H (70 - 100) mg/dL Calcium (8.5-10.3) mg/dL Phosphorus (2.5-4.6) mg/dL Magnesium (1.7-2.8) mg/dL Total Bilirubin (0.2-1.0) mg/dL AST (10-42) IU/L ALT (10-60) IU/L Alkaline Phosphatase (42-121) IU/L Total Protein (6.7-8.2) g/dL Albumin (3.2-5.5) g/dL Globulin (2.1-4.2) g/dL Albumin/Globulin Ratio (1.0-2.2) Serum Ketones SMALL H (NEGATIVE) Assessment/Plan - Problem List (1) DKA (diabetic ketoacidoses) Impression: Resolved/corrected. The patient is off of the insulin drip and has been getting long-acting and short-acting insulin. She is much more awake today, and appears stable. We will transfer her to a medical surgical bed at this time. Qualifiers: Diabetes mellitus type: type 2 Diabetes mellitus complication detail: without coma Qualified Code(s): E11.10 - Type 2 diabetes mellitus with ketoacidosis without coma (2) CAN (acute kidney injury) Impression: Resolved. The patient's creatinine on admission was 2.1. It is 0.5 today. Continue present care. (3) High anion gap metabolic acidosis Impression: Corrected within 12 hours of admission. The patient's anion gap today is 7.0. (4) Hypertension Impression: The patient's blood pressure is improved since we started her on hydrochlorothiazide and toprol but her diastolic is still elevated. Will continue present care and monitor closely. Qualifiers: Hypertension type: essential hypertension Qualified Code(s): I10 - Essential (primary) hypertension (5) Hypokalemia Impression: The patient's potassium continues to drop, we will replace with IV fluids and oral supplementation. (6) Vaginal yeast infection Impression: No new complaints, the patient has been treated with Diflucan. (7) Abdominal pain Impression: Patient's abdominal pain is resolving but not completely resolved. It suspected that the patient has alcoholic gastritis. She is on a proton pump inhibitor and receiving pain medicine as needed. Continue present care. (8) Abscess Impression: The patient is an IV drug user and has multiple gluteal abscesses. She is currently on vancomycin and Levaquin for coverage. Her white blood cell count is continuing to trend downwards, 15,000 today. Continue present care. (9) Hyponatremia Impression: Sodium continues to trend downward despite being given both oral and IV sodium chloride. I will increase her oral dosing. (10) Pneumonia Impression: We are treating the patient with vancomycin and Levaquin which should cover her pneumonia. Will monitor serial chest x-rays, and her leukocyte count continues to trend downwards (15,000) today. Continue present care. Qualifiers: Pneumonia type: due to unspecified organism Laterality: right Lung location: lower lobe of lung Qualified Code(s): J18.1 - Lobar pneumonia, unspecified organism (11) Polysubstance abuse Impression: The patient has a history of polysubstance abuse including methamphetamine, heroin, marijuana, and alcohol. She has been counseled multiple times on the need to quit the above. According to her roommate the patient has been using heroin for the last for 5 days and we will need to monitor her closely for signs of withdrawal. There are no such signs at this time.
[2017-12-31] MEDS: MAGNESIUM SULFATE 2 GRAM 2 GM/50 ML BAG IV SCH ×2 (16:00→17:10)
[2017-12-31] MEDS ORDERED: POTASSIUM CHLOR 10 MEQ/100 ML 10 MEQ/100 ML BAG IV SCH (16:00)
[2017-12-31] MEDS: VANCOMYCIN INJ 1 GM in SODIUM CHLORIDE 0.9% 250 ML IV SCH (16:00)
[2017-12-31] MEDS ORDERED: SODIUM PHOSPHATE 20 MMOL in SODIUM CHLORIDE 0.9% 250 ML IV ONE (17:00)
[2017-12-31] MEDS: NEUTRA-PHOS 250 MG TABLET PO SCH (17:24)
[2018-01-01] MEDS: levoFLOXacin 750 MG/150 ML 750 MG/150 ML BAG IV SCH (00:16)
[2018-01-01] MEDS: SODIUM CHLORIDE FLUSH 0.9% 10 ML SYRINGE IVP SCH ×4 (00:16→23:47)
[2018-01-01] MEDS: oxyCODONE 5 MG TABLET PO PRN (02:26)
[2018-01-01 05:14] LABS: CALCIUM 8.1 mg/dL (8.5-10.3); CREATININE 0.5 mg/dL (0.4-1.0); MAGNESIUM 2.1 mg/dL (1.7-2.8); PHOSPHORUS 3.6 mg/dL (2.5-4.6)
[2018-01-01 05:18] LABS: HGB - HEMOGLOBIN 12.2 g/dL (12.0-16.0); MEAN CORPUSCULAR HEMOGLOBIN 31.2 pg (27.0-31.0); MEAN CORPUSCULAR HGB CONC 33.1 g/dL (32.0-36.0); MEAN CORPUSCULAR VOLUME 94.3 fL (81.0-99.0); MEAN PLATELET VOLUME 10.6 fL (7.9-10.8); RED BLOOD COUNT 3.92 10^6/uL (4.20-5.40); RED CELL DISTRIBUTION WIDTH 13.6 % (12.0-15.0); WHITE BLOOD COUNT 12.7 x10^3/uL (4.8-10.8)
[2018-01-01] MEDS ORDERED: POTASSIUM CHLORIDE 20 MEQ TABLET PO ONE (06:00)
[2018-01-01] MEDS: SODIUM CHLORIDE 1 GM TABLET PO SCH ×3 (06:11→22:04)
[2018-01-01] MEDS: GABAPENTIN 100 MG CAPSULE PO SCH ×3 (06:11→22:04)
[2018-01-01] MEDS: HYDROmorphone 2 MG/ML VIAL IVP PRN ×7 (06:27→23:45)
[2018-01-01] MEDS: INSULIN ASPART 300 UNIT/3 ML PEN SUBQ SCH ×7 (07:57→21:29)
[2018-01-01] MEDS: hydroCHLOROthiazide 25 MG TABLET PO SCH (08:10)
[2018-01-01] MEDS: LOSARTAN 50 MG TABLET PO SCH (08:10)
[2018-01-01] MEDS: POTASSIUM CHLORIDE 20 MEQ TABLET PO SCH (08:10)
[2018-01-01] MEDS: amLODIPine 5 MG TABLET PO SCH (08:10)
[2018-01-01] MEDS: FAMOTIDINE 20 MG TABLET PO SCH (08:11)
[2018-01-01] MEDS: NEUTRA-PHOS 250 MG TABLET PO SCH ×3 (08:11→17:40)
[2018-01-01] MEDS: ATORVASTATIN 10 MG TABLET PO SCH (08:11)
[2018-01-01] MEDS: ENOXAPARIN 30 MG/0.3 ML SYRINGE SUBQ SCH (08:11)
[2018-01-01] MEDS: METOPROLOL SUCCINATE 50 MG TABLET PO SCH (08:12)
[2018-01-01] MEDS: POTASSIUM CHLOR 10 MEQ/100 ML 10 MEQ/100 ML BAG IV SCH ×3 (08:29→10:30)
[2018-01-01] MEDS: INSULIN GLARGINE 300 UNIT/3 ML PEN SUBQ SCH (09:02)
[2018-01-01 09:38] LABS: VANCOMYCIN,TROUGH 13.8 ug/mL (10.0-20.0)
[2018-01-01] MEDS: VANCOMYCIN INJ 1 GM in SODIUM CHLORIDE 0.9% 250 ML IV SCH (11:30)
[2018-01-01] MEDS: MULTIVITAMIN W/MINERALS TABLET PO SCH (14:06)
[2018-01-01] MEDS: SACCHAROMYCES BOULARDII 250 MG CAPSULE PO SCH (17:40)
--- NOTE | 2018-01-01 17:41 | PROVIDER PROGRESS NOTE ---
Subjective - Prog Note Date Prog Note Date: 01/01/18 Prog Note Time: 15:00 - Subjective Pt reports feeling: Improved Subjective: The patient is much more awake, alert, and interactive today. She denies any new problems, she denies any fevers, chills, shortness of breath, nausea or vomiting. Current Medications - Current Medications Current Medications: Active Medications Generic Name Dose Route Start Last Admin Trade Name Freq PRN Reason Stop Dose Admin Acetaminophen 650 mg 12/29/17 19:14 Tylenol PO Q4HR PRN Pain 1 to 4 Amlodipine Besylate 10 mg 12/30/17 09:00 01/01/18 08:10 Norvasc PO 10 mg DAILY BRENDON Administration Atorvastatin Calcium 10 mg 12/30/17 09:00 01/01/18 08:11 Lipitor PO 10 mg DAILY BRENDON Administration Enoxaparin Sodium 30 mg 12/30/17 09:00 01/01/18 08:11 Lovenox SUBQ 30 mg DAILY BRENDON Administration Famotidine 20 mg 12/30/17 09:00 01/01/18 08:11 Pepcid PO 20 mg DAILY BRENDON Administration Fluconazole 150 mg 12/29/17 23:45 12/30/17 01:24 Diflucan PO 01/04/18 23:46 150 mg Q72H BRENDON Administration Gabapentin 300 mg 12/29/17 22:00 01/01/18 14:06 Neurontin PO 300 mg TID BRENDON Administration Hydrochlorothiazide 25 mg 12/30/17 17:00 01/01/18 08:10 Hydrodiuril PO 25 mg DAILY BRENDON Administration Hydromorphone HCl 2 mg 12/29/17 20:53 01/01/18 15:26 Dilaudid (Vial) IVP 2 mg Q2H PRN Administration PAIN Hydroxyzine Pamoate 50 mg 12/29/17 19:11 Vistaril PO Q6H PRN Anxiety Levofloxacin 750 mg in 150 mls @ 100 mls/hr 12/30/17 00:00 01/01/18 02:00 Levaquin 750 Mg/150 Ml IV Infused Q48H BRENDON Infusion Vancomycin HCl 1 gm/ Sodium 250 mls @ 167 mls/hr 12/30/17 22:00 01/01/18 13: 15 Chloride IV Infused Q18H BRENDON Infusion Sodium Chloride 500 mls @ 0 mls/hr 12/31/17 02:47 12/31/17 07:01 Normal Saline 0.9% IV Infused Q24H PRN Infusion TKO RATE TKO Insulin Aspart 5 unit 12/31/17 08:00 01/01/18 07:57 Novolog SUBQ 5 unit QDBREAKFAST BRENDON Administration Protocol Insulin Aspart 5 unit 12/31/17 12:00 01/01/18 11:57 Novolog SUBQ 5 unit QDLUNCH BRENDON Administration Protocol Insulin Aspart 5 unit 12/31/17 17:00 01/01/18 17:06 Novolog SUBQ 5 unit QDDINNER BRENDON Administration Protocol Insulin Aspart 1 - 9 unit 12/31/17 08:00 01/01/18 17:06 Novolog SUBQ 3 unit 0800,1200,1700,2100 BRENDON Administration Protocol Insulin Glargine 21 unit 12/31/17 06:48 01/01/18 09:02 Lantus Solostar SUBQ 21 unit DAILY BRENDON Administration Lorazepam 1 mg 12/29/17 19:11 12/29/17 21:03 Ativan PO 1 mg TID PRN Administration Agitation Losartan Potassium 100 mg 12/30/17 13:00 01/01/18 08:10 Cozaar PO 100 mg DAILY BRENDON Administration Metoprolol Succinate 50 mg 12/30/17 17:00 01/01/18 08:12 Toprol Xl PO 50 mg DAILY BRENDON Administration Multivitamins/Minerals 1 tab 01/01/18 13:00 01/01/18 14:06 Theragran M PO 1 tab DAILYWM BRENDON Administration Ondansetron HCl 4 mg 12/29/17 19:14 Zofran Inj IVP Q6HR PRN Nausea / Vomiting Oxycodone HCl 5 mg 12/29/17 19:14 12/29/17 20:45 Roxicodone PO 5 mg Q4HR PRN Administration Pain 5 to 7 Oxycodone HCl 10 mg 12/29/17 20:53 01/01/18 02:26 Roxicodone PO 10 mg Q4HR PRN Administration PAIN Potassium Chloride 20 meq 12/30/17 17:00 01/01/18 08:10 K-Dur PO 20 meq DAILYWM BRENDON Administration Prochlorperazine Edisylate 10 mg 12/29/17 19:14 Compazine Inj IVP Q6HR PRN Nausea / Vomiting Saccharomyces Boulardii 250 mg 01/01/18 17:00 01/01/18 17:40 Florastor PO 250 mg 0800,1700 BRENDON Administration Sodium Chloride 10 ml 12/30/17 01:00 01/01/18 17:07 Normal Saline Flush 0.9% IVP 10 ml 0100,0900,1700 BRENDON Administration Sodium Chloride 10 ml 12/29/17 19:14 Normal Saline Flush 0.9% IVP PRN PRN NEEDED PER PROVIDER ORDERS Sodium Chloride 1 gm 12/31/17 16:00 01/01/18 14:06 Salt Tab PO 1 gm TID BRENDON Administration Sodium Phosphate 250 mg 12/31/17 17:00 01/01/18 17:40 K-Phos Neutral PO 250 mg TIDWM BRENDON Administration Zolpidem Tartrate 5 mg 12/29/17 19:14 Ambien PO QPM PRN Insomnia Allopurinol 100 mg PO DAILY 10/18/16 Atorvastatin [Lipitor] 10 mg PO DAILY 10/18/16 Losartan [Cozaar] 100 mg PO DAILY 10/18/16 Omeprazole 20 mg PO DAILY 10/18/16 metFORMIN [Glucophage] 1,000 mg PO BID 10/18/16 Insulin Glargine,Hum.rec.anlog [Basaglar Kwikpen U-100] 21 unit SQ DAILY Gabapentin 300 mg PO TID 08/07/17 Insulin Lispro [Humalog Kwikpen U-100] 5 units SUBQ TIDWM 08/07/17 hydrOXYzine HCl [Hydroxyzine HCl] 50 mg PO Q6H PRN 12/29/17 Mv,Ca,Min/Folic Acid/Vit K1 [One-A-Day Women's 50 Plus Tab] 1 each PO DAILY 09/14 Objective - Vital Signs/Intake & Output Reviewed Vital Signs: Yes Vital Signs: Vital Signs x48h Temp Pulse Resp BP Pulse Ox 01/01/18 16:01 37.0 C 85 16 91/69 98 01/01/18 13:00 84 16 86/68 L 99 Intake & Output: Intake & Output 12/29/17 12/30/17 12/31/17 01/01/18 23:59 23:59 23:59 23:59 Intake Total 388.486 9203.266 9166.267 2256.6650 Output Total 352 7460 700 850 Balance -515.679 9594.266 2956.867 533.7183 - Objective General Appearance: positive: No acute distress, Alert Eyes Bilateral: positive: Normal inspection, PERRL, EOMI, No lid inflammation, Conjunctivae nml, No scleral icterus ENT: positive: ENT inspection nml, Pharynx nml, No signs of dehydration Neck: positive: Nml inspection, Thyroid nml, No JVD, Trachea midline. negative : Thyromegaly Respiratory: positive: Chest non-tender, No respiratory distress, Breath sounds nml. negative: Wheezes, Rales, Rhonchi Cardiovascular: positive: Regular rate & rhythm, No murmur, No gallop Abdomen: positive: Non-tender, No organomegaly, Nml bowel sounds, No distention. negative: Guarding, Rebound Back: positive: Nml inspection. negative: CVA tenderness (R), CVA tenderness (L ) Skin: positive: Color nml, No rash, Warm, Dry. negative: Cyanosis Extremities: positive: Non-tender, Full ROM, Nml appearance, No pedal edema Neurologic/Psychiatric: positive: Oriented x3, CN's nml (2-12), Motor nml, Sensation nml, Mood/affect nml - Lab Results Fish Bones: 01/01/18 04:20 01/01/18 04:20 Other Labs: Lab Results x24hrs 01/01/18 01/01/18 01/01/18 Range/Units 17:01 11:41 09:20 WBC (4.8-10.8) x10^3/uL RBC (4.20-5.40) 10^6/uL Hgb (12.0-16.0) g/dL Hct (37.0-47.0) % MCV (81.0-99.0) fL MCH (27.0-31.0) pg MCHC (32.0-36.0) g/dL RDW (12.0-15.0) % Plt Count (130-450) 10^3/uL MPV (7.9-10.8) fL Sodium (135-145) mmol/L Potassium (3.5-5.0) mmol/L Chloride (101-111) mmol/L Carbon Dioxide (21-32) mmol/L Anion Gap (6-13) BUN (6-20) mg/dL Creatinine (0.4-1.0) mg/dL Estimated GFR (MDRD) (>89) Glucose (70-100) mg/dL POC Whole Bld Glucose 209 H 236 H (70 - 100) mg/dL Calcium (8.5-10.3) mg/dL Phosphorus (2.5-4.6) mg/dL Magnesium (1.7-2.8) mg/dL Last Dose Date 12-31-17 Last Dose Time 17:35 Vancomycin Trough 13.8 (10.0-20.0) ug/mL 01/01/18 01/01/18 01/01/18 Range/Units 07:36 04:20 04:20 WBC 12.7 H (4.8-10.8) x10^3/uL RBC 3.92 L (4.20-5.40) 10^6/uL Hgb 12.2 (12.0-16.0) g/dL Hct 37.0 (37.0-47.0) % MCV 94.3 (81.0-99.0) fL MCH 31.2 H (27.0-31.0) pg MCHC 33.1 (32.0-36.0) g/dL RDW 13.6 (12.0-15.0) % Plt Count 400 (130-450) 10^3/uL MPV 10.6 (7.9-10.8) fL Sodium 129 L (135-145) mmol/L Potassium 3.3 L (3.5-5.0) mmol/L Chloride 100 L (101-111) mmol/L Carbon Dioxide 22 (21-32) mmol/L Anion Gap 7.0 (6-13) BUN 8 (6-20) mg/dL Creatinine 0.5 (0.4-1.0) mg/dL Estimated GFR (MDRD) 131 (>89) Glucose 177 H (70-100) mg/dL POC Whole Bld Glucose 147 H (70 - 100) mg/dL Calcium 8.1 L (8.5-10.3) mg/dL Phosphorus 3.6 (2.5-4.6) mg/dL Magnesium 2.1 (1.7-2.8) mg/dL Last Dose Date Last Dose Time Vancomycin Trough (10.0-20.0) ug/mL 12/31/17 Range/Units 21:05 WBC (4.8-10.8) x10^3/uL RBC (4.20-5.40) 10^6/uL Hgb (12.0-16.0) g/dL Hct (37.0-47.0) % MCV (81.0-99.0) fL MCH (27.0-31.0) pg MCHC (32.0-36.0) g/dL RDW (12.0-15.0) % Plt Count (130-450) 10^3/uL MPV (7.9-10.8) fL Sodium (135-145) mmol/L Potassium (3.5-5.0) mmol/L Chloride (101-111) mmol/L Carbon Dioxide (21-32) mmol/L Anion Gap (6-13) BUN (6-20) mg/dL Creatinine (0.4-1.0) mg/dL Estimated GFR (MDRD) (>89) Glucose (70-100) mg/dL POC Whole Bld Glucose 176 H (70 - 100) mg/dL Calcium (8.5-10.3) mg/dL Phosphorus (2.5-4.6) mg/dL Magnesium (1.7-2.8) mg/dL Last Dose Date Last Dose Time Vancomycin Trough (10.0-20.0) ug/mL ABX Reporting Has patient been on IV antibiotics over the past 48 hours?: Yes Assessment/Plan - Problem List (1) DKA (diabetic ketoacidoses) Impression: Resolved/corrected. The patient is off of the insulin drip and has been getting long-acting and short-acting insulin. She is much more awake today, and appears stable. We transferred her to a medical surgical bed this morning. Qualifiers: Diabetes mellitus type: type 2 Diabetes mellitus complication detail: without coma Qualified Code(s): E11.10 - Type 2 diabetes mellitus with ketoacidosis without coma (2) CAN (acute kidney injury) Impression: Resolved. The patient's creatinine on admission was 2.1. It is 0.5 today. Continue present care. (3) High anion gap metabolic acidosis Impression: Corrected within 12 hours of admission. The patient's anion gap today is 7.0. (4) Hypertension Impression: The patient's blood pressure is under control today. Continue present care. Qualifiers: Hypertension type: essential hypertension Qualified Code(s): I10 - Essential (primary) hypertension (5) Hypokalemia Impression: We are currently correcting the patient's hypokalemia and hyponatremia. If they are close to within normal limits tomorrow we will discharge the patient home, As she is no longer diabetic ketoacidosis and the rest of her problems have been corrected.. (6) Abscess Impression: The patient is an IV drug user and has multiple gluteal abscesses. She is currently on vancomycin and Levaquin for coverage. Her white blood cell count is continuing to trend downwards, 12,700 today. Continue present care. (7) Vaginal yeast infection Impression: We are currently treating the patient with Diflucan for her candidiasis. This appears to be clearing. Continue present care. (8) Abdominal pain Impression: Patient's abdominal pain is now resolved. It suspected that the patient had alcoholic gastritis. She is on a proton pump inhibitor and receiving pain medicine as needed. Continue present care. (9) Hyponatremia Impression: We are giving the patient sodium through her IVs and orally. Despite this the patient's sodium continues to slowly trend downward. I increased the oral dosing yesterday and await lab test results tomorrow morning. (10) Pneumonia Impression: We are treating the patient with vancomycin and Levaquin which should cover her pneumonia. Will monitor serial chest x-rays, and her leukocyte count continues to trend downwards (12,700) today. Continue present care. Qualifiers: Pneumonia type: due to unspecified organism Laterality: right Lung location: lower lobe of lung Qualified Code(s): J18.1 - Lobar pneumonia, unspecified organism (11) Polysubstance abuse Impression: The patient has a history of polysubstance abuse including methamphetamine, heroin, marijuana, and alcohol. She has been counseled multiple times on the need to quit the above. She has told the nurse that she is not doing any more drugs. According to her roommate the patient has been using heroin for the last for 5 days and we will need to monitor her closely for signs of withdrawal. At this stage of her hospitalization is extremely unlikely that anything would occur.
[2018-01-01] MEDS: LORazepam 0.5 MG TABLET PO PRN (19:51)
[2018-01-01] MEDS: SODIUM CHLORIDE FLUSH 0.9% 10 ML SYRINGE IVP PRN (19:58)
--- NOTE | 2018-01-01 20:07 | XRAY Report ---
Procedure Date: 01/01/2018 Accession Number: [id number] / [id number] Procedure: XR - Chest 1 View X-Ray CPT Code: 41296 FULL RESULT: EXAM: CHEST RADIOGRAPHY EXAM DATE: 01/01/2018 06:23 PM. CLINICAL HISTORY: Reassess pneumonia. COMPARISON: 12/29/2017. TECHNIQUE: 1 view. FINDINGS: Lungs/Pleura: Improving infiltrate in the lower right lung. Worsening infrahilar infiltrate on the left. No definite cavitation. Hyperinflated lungs. No sign of pneumothorax or effusion. Mediastinum: Within exam limitations, the cardiomediastinal contour is normal. Other: Old left rib fractures noted. IMPRESSION: 1. Improving right base infiltrate without definite cavitation. 2. Worsening left infrahilar infiltrate. RADIA
[2018-01-01] MEDS: FLUCONAZOLE 100 MG TABLET PO SCH (23:46)
[2018-01-02] MEDS: VANCOMYCIN INJ 1 GM in SODIUM CHLORIDE 0.9% 250 ML IV SCH ×2 (04:03→21:15)
[2018-01-02] MEDS: HYDROmorphone 2 MG/ML VIAL IVP PRN ×2 (04:03→08:01)
[2018-01-02] MEDS: SODIUM CHLORIDE FLUSH 0.9% 10 ML SYRINGE IVP PRN ×3 (04:03→12:04)
[2018-01-02 04:42] LABS: HGB - HEMOGLOBIN 11.8 g/dL (12.0-16.0); MEAN CORPUSCULAR HEMOGLOBIN 31.9 pg (27.0-31.0); MEAN CORPUSCULAR HGB CONC 33.2 g/dL (32.0-36.0); MEAN CORPUSCULAR VOLUME 96.1 fL (81.0-99.0); MEAN PLATELET VOLUME 9.8 fL (7.9-10.8); RED BLOOD COUNT 3.7 10^6/uL (4.20-5.40); RED CELL DISTRIBUTION WIDTH 13.7 % (12.0-15.0); WHITE BLOOD COUNT 15.9 x10^3/uL (4.8-10.8)
[2018-01-02 04:47] LABS: CALCIUM 8.5 mg/dL (8.5-10.3); MAGNESIUM 1.6 mg/dL (1.7-2.8); PHOSPHORUS 4.3 mg/dL (2.5-4.6)
[2018-01-02] MEDS: GABAPENTIN 100 MG CAPSULE PO SCH (05:56)
[2018-01-02] MEDS: SODIUM CHLORIDE 1 GM TABLET PO SCH ×3 (05:56→20:46)
[2018-01-02] MEDS ORDERED: SODIUM CHLORIDE 3% HYPERTONIC 500 ML IV SCH (08:00)
[2018-01-02] MEDS: INSULIN ASPART 300 UNIT/3 ML PEN SUBQ SCH ×7 (08:02→20:52)
[2018-01-02] MEDS: LORazepam 0.5 MG TABLET PO PRN (08:02)
[2018-01-02] MEDS: NEUTRA-PHOS 250 MG TABLET PO SCH ×3 (10:08→18:09)
[2018-01-02] MEDS: MAGNESIUM SULFATE 2 GRAM 2 GM/50 ML BAG IV SCH ×2 (10:08→12:08)
[2018-01-02] MEDS: LOSARTAN 50 MG TABLET PO SCH (10:09)
[2018-01-02] MEDS: MULTIVITAMIN W/MINERALS TABLET PO SCH (10:09)
[2018-01-02] MEDS: FAMOTIDINE 20 MG TABLET PO SCH (10:09)
[2018-01-02] MEDS: amLODIPine 5 MG TABLET PO SCH (10:09)
[2018-01-02] MEDS: SACCHAROMYCES BOULARDII 250 MG CAPSULE PO SCH ×2 (10:09→18:09)
[2018-01-02] MEDS: METOPROLOL SUCCINATE 50 MG TABLET PO SCH (10:09)
[2018-01-02] MEDS: POTASSIUM CHLORIDE 20 MEQ TABLET PO SCH (10:09)
[2018-01-02] MEDS: ATORVASTATIN 10 MG TABLET PO SCH (10:09)
[2018-01-02] MEDS: POLYETHYLENE GLYCOL 3350 17 GM PACKET PO SCH (10:10)
[2018-01-02] MEDS: ENOXAPARIN 30 MG/0.3 ML SYRINGE SUBQ SCH (10:10)
[2018-01-02] MEDS: SODIUM CHLORIDE FLUSH 0.9% 10 ML SYRINGE IVP SCH ×2 (10:11→16:21)
[2018-01-02] MEDS: INSULIN GLARGINE 300 UNIT/3 ML PEN SUBQ SCH (10:12)
--- NOTE | 2018-01-02 10:31 | XRAY Report ---
Procedure Date: 01/02/2018 Accession Number: [id number] / [id number] Procedure: XR - Chest 1 View X-Ray CPT Code: 52809 FULL RESULT: EXAM: Chest 1 View X-Ray DATE: 01/02/2018 10:27 AM CLINICAL HISTORY: cough COMPARISON: 01/01/2018 TECHNIQUE: Single view of the chest. FINDINGS: Lungs/Pleura: Stable right lower lobe parenchymal opacity. Minimal left basilar atelectasis. No definite effusion or pneumothorax. Mediastinum: Within exam limitations, cardiomediastinal contour is normal. Other: Old, healed rib fractures. IMPRESSION: Stable right basilar infiltrate. Minimal left basilar atelectasis. RADIA
[2018-01-02] MEDS: hydroCHLOROthiazide 25 MG TABLET PO SCH (12:52)
[2018-01-02] MEDS: oxyCODONE 5 MG TABLET PO PRN ×3 (12:56→22:07)
[2018-01-02] MEDS ORDERED: INSULIN REGULAR HUMAN 100 UNIT/1 ML 10 ML MDV IVP STA (14:49)
[2018-01-02] MEDS: GABAPENTIN 300 MG CAPSULE PO SCH ×2 (14:55→20:46)
[2018-01-02] MEDS ORDERED: VANCOMYCIN PER PHARMACY 100 GM in SODIUM CHLORIDE 0.9% 250 ML IV SCH (15:00)
--- NOTE | 2018-01-02 15:26 | PROVIDER PROGRESS NOTE ---
Subjective - Prog Note Date Prog Note Date: 01/02/18 Prog Note Time: 13:45 - Subjective Pt reports feeling: No change Subjective: The patient says she feels well- about the same as she did yesterday. She denies any new problems. She denies any fevers, chills, shortness of breath, nausea or vomiting. Current Medications - Current Medications Current Medications: Active Medications Generic Name Dose Route Start Last Admin Trade Name Freq PRN Reason Stop Dose Admin Acetaminophen 650 mg 12/29/17 19:14 Tylenol PO Q4HR PRN Pain 1 to 4 Amlodipine Besylate 10 mg 12/30/17 09:00 01/02/18 10:09 Norvasc PO 10 mg DAILY BRENDON Administration Atorvastatin Calcium 10 mg 12/30/17 09:00 01/02/18 10:09 Lipitor PO 10 mg DAILY BRENDON Administration Enoxaparin Sodium 30 mg 12/30/17 09:00 01/02/18 10:10 Lovenox SUBQ 30 mg DAILY BRENDON Administration Famotidine 20 mg 12/30/17 09:00 01/02/18 10:09 Pepcid PO 20 mg DAILY BRENDON Administration Fluconazole 150 mg 12/29/17 23:45 01/01/18 23:46 Diflucan PO 01/04/18 23:46 150 mg Q72H BRENDON Administration Gabapentin 300 mg 01/02/18 14:00 01/02/18 14:55 Neurontin PO 300 mg TID BRENDON Administration Hydrochlorothiazide 25 mg 12/30/17 17:00 01/02/18 12:52 Hydrodiuril PO 25 mg DAILY BRENDON Administration Hydromorphone HCl 2 mg 12/29/17 20:53 01/02/18 08:01 Dilaudid (Vial) IVP 2 mg Q2H PRN Administration PAIN Hydroxyzine Pamoate 50 mg 12/29/17 19:11 Vistaril PO Q6H PRN Anxiety Vancomycin HCl 1 gm/ Sodium 250 mls @ 167 mls/hr 12/30/17 22:00 01/02/18 05: 50 Chloride IV Infused Q18H BRENDON Infusion Sodium Chloride 500 mls @ 0 mls/hr 12/31/17 02:47 12/31/17 07:01 Normal Saline 0.9% IV Infused Q24H PRN Infusion TKO RATE TKO Sodium Chloride 500 mls @ 50 mls/hr 01/02/18 08:00 01/02/18 10:07 IV 01/02/18 17:59 50 mls/hr .Q10H BRENDON Administration Ampicillin Sodium/Sulbactam 100 mls @ 200 mls/hr 01/02/18 16:00 Sodium 3 gm/ Sodium Chloride IV Q6H BRENDON Levofloxacin 750 mg in 150 mls @ 100 mls/hr 01/02/18 18:00 Levaquin 750 Mg/150 Ml IV Q24H BRENDON Insulin Aspart 5 unit 12/31/17 08:00 01/02/18 08:02 Novolog SUBQ 5 unit QDBREAKFAST BRENDON Administration Protocol Insulin Aspart 5 unit 12/31/17 12:00 01/02/18 12:49 Novolog SUBQ 5 unit QDLUNCH BRENDON Administration Protocol Insulin Aspart 5 unit 12/31/17 17:00 01/01/18 17:06 Novolog SUBQ 5 unit QDDINNER BRENDON Administration Protocol Insulin Aspart 2 - 10 unit 01/02/18 17:00 Novolog SUBQ 0800,1200,1700,2100 BRENDON Protocol Insulin Glargine 21 unit 12/31/17 06:48 01/02/18 10:12 Lantus Solostar SUBQ 21 unit DAILY BRENDON Administration Lorazepam 1 mg 12/29/17 19:11 01/02/18 08:02 Ativan PO 1 mg TID PRN Administration Agitation Losartan Potassium 100 mg 12/30/17 13:00 01/02/18 10:09 Cozaar PO 100 mg DAILY BRENDON Administration Metoprolol Succinate 50 mg 12/30/17 17:00 01/02/18 10:09 Toprol Xl PO 50 mg DAILY BRENDON Administration Multivitamins/Minerals 1 tab 01/01/18 13:00 01/02/18 10:09 Theragran M PO 1 tab DAILYWM BRENDON Administration Ondansetron HCl 4 mg 12/29/17 19:14 Zofran Inj IVP Q6HR PRN Nausea / Vomiting Oxycodone HCl 5 mg 12/29/17 19:14 12/29/17 20:45 Roxicodone PO 5 mg Q4HR PRN Administration Pain 5 to 7 Oxycodone HCl 10 mg 12/29/17 20:53 01/02/18 12:56 Roxicodone PO 10 mg Q4HR PRN Administration PAIN Polyethylene Glycol 17 gm 01/02/18 09:00 01/02/18 10:10 Miralax PO 17 gm DAILY BRENDON Administration Potassium Chloride 20 meq 12/30/17 17:00 01/02/18 10:09 K-Dur PO 20 meq DAILYWM BRENDON Administration Prochlorperazine Edisylate 10 mg 12/29/17 19:14 Compazine Inj IVP Q6HR PRN Nausea / Vomiting Saccharomyces Boulardii 250 mg 01/01/18 17:00 01/02/18 10:09 Florastor PO 250 mg 0800,1700 BRENDON Administration Sodium Chloride 10 ml 12/30/17 01:00 01/02/18 10:11 Normal Saline Flush 0.9% IVP 10 ml 0100,0900,1700 BRENDON Administration Sodium Chloride 10 ml 12/29/17 19:14 01/02/18 12:04 Normal Saline Flush 0.9% IVP 10 ml PRN PRN Administration NEEDED PER PROVIDER ORDERS Sodium Chloride 1 gm 12/31/17 16:00 01/02/18 14:55 Salt Tab PO 1 gm TID BRENDON Administration Sodium Phosphate 250 mg 12/31/17 17:00 01/02/18 12:53 K-Phos Neutral PO 250 mg TIDWM BRENDON Administration Zolpidem Tartrate 5 mg 12/29/17 19:14 Ambien PO QPM PRN Insomnia Allopurinol 100 mg PO DAILY 10/18/16 Atorvastatin [Lipitor] 10 mg PO DAILY 10/18/16 Losartan [Cozaar] 100 mg PO DAILY 10/18/16 Omeprazole 20 mg PO DAILY 10/18/16 metFORMIN [Glucophage] 1,000 mg PO BID 10/18/16 Insulin Glargine,Hum.rec.anlog [Basaglar Kwikpen U-100] 21 unit SQ DAILY Gabapentin 300 mg PO TID 08/07/17 Insulin Lispro [Humalog Kwikpen U-100] 5 units SUBQ TIDWM 08/07/17 hydrOXYzine HCl [Hydroxyzine HCl] 50 mg PO Q6H PRN 12/29/17 Mv,Ca,Min/Folic Acid/Vit K1 [One-A-Day Women's 50 Plus Tab] 1 each PO DAILY 09/14 Objective - Vital Signs/Intake & Output Reviewed Vital Signs: Yes Vital Signs: Vital Signs x48h Temp Pulse Resp BP Pulse Ox 01/02/18 12:41 36.6 C 77 16 105/68 99 01/02/18 08:22 37.0 C 86 18 115/76 97 Intake & Output: Intake & Output 12/30/17 12/31/17 01/01/18 01/02/18 23:59 23:59 23:59 23:59 Intake Total 4777.266 3656.267 2406.6667 870 Output Total 2350 700 850 Balance 2444.266 2956.267 1556.6667 870 - Objective General Appearance: positive: No acute distress, Alert Eyes Bilateral: positive: Normal inspection, PERRL, EOMI, No lid inflammation, Conjunctivae nml, No scleral icterus ENT: positive: ENT inspection nml, Pharynx nml, No signs of dehydration Neck: positive: Nml inspection, Thyroid nml, No JVD, Trachea midline. negative : Thyromegaly Respiratory: positive: Chest non-tender, No respiratory distress, Breath sounds nml. negative: Wheezes, Rales, Rhonchi Cardiovascular: positive: Regular rate & rhythm, No murmur, No gallop Abdomen: positive: Non-tender, No organomegaly, Nml bowel sounds, No distention. negative: Guarding, Rebound Back: positive: Nml inspection. negative: CVA tenderness (R), CVA tenderness (L ) Skin: positive: Color nml, No rash, Warm, Dry. negative: Cyanosis Extremities: positive: Non-tender, Full ROM, Nml appearance, No pedal edema Neurologic/Psychiatric: positive: Oriented x3, CN's nml (2-12), Motor nml, Sensation nml, Mood/affect nml - Lab Results Fish Bones: 01/02/18 04:25 01/02/18 04:25 Other Labs: Lab Results x24hrs 01/02/18 01/02/18 01/02/18 Range/Units 14:13 11:51 07:32 WBC (4.8-10.8) x10^3/uL RBC (4.20-5.40) 10^6/uL Hgb (12.0-16.0) g/dL Hct (37.0-47.0) % MCV (81.0-99.0) fL MCH (27.0-31.0) pg MCHC (32.0-36.0) g/dL RDW (12.0-15.0) % Plt Count (130-450) 10^3/uL MPV (7.9-10.8) fL Sodium (135-145) mmol/L Potassium (3.5-5.0) mmol/L Chloride (101-111) mmol/L Carbon Dioxide (21-32) mmol/L Anion Gap (6-13) BUN (6-20) mg/dL Creatinine (0.4-1.0) mg/dL Estimated GFR (MDRD) (>89) Glucose (70-100) mg/dL POC Whole Bld Glucose 407 H 389 H 262 H (70 - 100) mg/dL Calcium (8.5-10.3) mg/dL Phosphorus (2.5-4.6) mg/dL Magnesium (1.7-2.8) mg/dL 01/02/18 01/02/18 01/01/18 Range/Units 04:25 04:25 23:35 WBC 15.9 H (4.8-10.8) x10^3/uL RBC 3.70 L (4.20-5.40) 10^6/uL Hgb 11.8 L (12.0-16.0) g/dL Hct 35.5 L (37.0-47.0) % MCV 96.1 (81.0-99.0) fL MCH 31.9 H (27.0-31.0) pg MCHC 33.2 (32.0-36.0) g/dL RDW 13.7 (12.0-15.0) % Plt Count 406 (130-450) 10^3/uL MPV 9.8 (7.9-10.8) fL Sodium 126 L (135-145) mmol/L Potassium 4.3 (3.5-5.0) mmol/L Chloride 93 L (101-111) mmol/L Carbon Dioxide 22 (21-32) mmol/L Anion Gap 11.0 (6-13) BUN 12 (6-20) mg/dL Creatinine 1.0 (0.4-1.0) mg/dL Estimated GFR (MDRD) 59 L (>89) Glucose 277 H (70-100) mg/dL POC Whole Bld Glucose 96 (70 - 100) mg/dL Calcium 8.5 (8.5-10.3) mg/dL Phosphorus 4.3 (2.5-4.6) mg/dL Magnesium 1.6 L (1.7-2.8) mg/dL 01/01/18 01/01/18 Range/Units 21:06 17:01 WBC (4.8-10.8) x10^3/uL RBC (4.20-5.40) 10^6/uL Hgb (12.0-16.0) g/dL Hct (37.0-47.0) % MCV (81.0-99.0) fL MCH (27.0-31.0) pg MCHC (32.0-36.0) g/dL RDW (12.0-15.0) % Plt Count (130-450) 10^3/uL MPV (7.9-10.8) fL Sodium (135-145) mmol/L Potassium (3.5-5.0) mmol/L Chloride (101-111) mmol/L Carbon Dioxide (21-32) mmol/L Anion Gap (6-13) BUN (6-20) mg/dL Creatinine (0.4-1.0) mg/dL Estimated GFR (MDRD) (>89) Glucose (70-100) mg/dL POC Whole Bld Glucose 95 209 H (70 - 100) mg/dL Calcium (8.5-10.3) mg/dL Phosphorus (2.5-4.6) mg/dL Magnesium (1.7-2.8) mg/dL - Diagnostic Imaging Diagnostic Imaging Results: positive: Final report reviewed Diagnostic Imaging Comments: EXAM: Chest 1 View X-Ray DATE: 01/02/2018 10:27 AM CLINICAL HISTORY: cough COMPARISON: 01/01/2018 TECHNIQUE: Single view of the chest. FINDINGS: Lungs/Pleura: Stable right lower lobe parenchymal opacity. Minimal left basilar atelectasis. No definite effusion or pneumothorax. Mediastinum: Within exam limitations, cardiomediastinal contour is normal. Other: Old, healed rib fractures. IMPRESSION: Stable right basilar infiltrate. Minimal left basilar atelectasis. ABX Reporting Has patient been on IV antibiotics over the past 48 hours?: Yes Assessment/Plan - Problem List (1) Hyponatremia Impression: I am unsure of the etiology of the hyponatremia. The patient had a lot of GI losses initially but she has been in the hospital for 5 days and her sodium has been replaced many times. I have been replacing the sodium with IV fluids and 1 g of salt 3 times a day and her sodium level dropped from 129-126 yesterday. Even correcting for the patient's hyperglycemia her sodium would have gone up just one-point which is unexpected in the amount of sodium she is being administered. I will continue to look for source and treat her with hypertonic saline today. (2) Abscess Impression: The patient is an IV drug user and has multiple gluteal abscesses. Additionally , she "popped a pimple" in her perineal area yesterday. I have cultured the new wound and started her on vancomycin and Unasyn as her white blood cell count has been going up on her current antibiotic regimen (She is currently on vancomycin and Levaquin for coverage). Her white blood cell count is continuing to trend upwards, 15,900 today. (3) Hypertension Impression: The patient's blood pressure is under good control today. She is currently taking losartan, metoprolol, Amlodipine and hydroxyzine. Continue present care. Qualifiers: Hypertension type: essential hypertension Qualified Code(s): I10 - Essential (primary) hypertension (4) Hypokalemia Impression: Corrected, potassium 4.3 today. (5) Vaginal yeast infection Impression: The patient has responded well to Diflucan and is not complaining of any yeast infection symptoms at this time. (6) Pneumonia Impression: The patient had been on vancomycin and Levaquin prior to today and has responded well. Chest x-ray done today showed a stable right basilar infiltrate with minimal left basilar atelectasis. She will continue to receive vancomycin and Unasyn which should also cover any pneumonia that she is having. Qualifiers: Pneumonia type: due to unspecified organism Laterality: right Lung location: lower lobe of lung Qualified Code(s): J18.1 - Lobar pneumonia, unspecified organism (7) Polysubstance abuse Impression: The patient has a history of polysubstance abuse including methamphetamine, heroin, marijuana, and alcohol. She has been counseled multiple times on the need to quit the above. She has told the nurse that she is not doing any more drugs. According to her roommate the patient has been using heroin for the last for 5 days and we will need to monitor her closely for signs of withdrawal. At this stage of her hospitalization is extremely unlikely that anything would occur. (8) DKA (diabetic ketoacidoses) Impression: Resolved/corrected. The patient is off of the insulin drip and has been getting long-acting and short-acting insulin. She is much more awake today, and appears stable. We transferred her to a bed on the medical/surgical floor yesterday. Qualifiers: Diabetes mellitus type: type 2 Diabetes mellitus complication detail: without coma Qualified Code(s): E11.10 - Type 2 diabetes mellitus with ketoacidosis without coma (9) CAN (acute kidney injury) Impression: Presumably due to dehydration. Resolved. The patient's creatinine on admission was 2.1. It is 1.0 today. BUN was 32 on admission and it is 12 today. Continue present care. (10) High anion gap metabolic acidosis Impression: Corrected within 12 hours of admission. The patient's anion gap today is 11.0.
[2018-01-02 15:27] LABS: BILIRUBIN,URINE NEGATIVE (NEGATIVE); CLARITY,URINE CLEAR (CLEAR); GLUCOSE, URINE (UA) >=1000 mg/dL (NEGATIVE); KETONES,URINE (UA) NEGATIVE (NEGATIVE); LEUKOCYTE ESTERASE, URINE NEGATIVE (NEGATIVE); NITRITE,URINE NEGATIVE (NEGATIVE); OCCULT BLOOD,URINE NEGATIVE (NEGATIVE); PH,URINE 5.5 PH (5.0-7.5); PROTEIN,URINE NEGATIVE (NEGATIVE); UROBILINOGEN,URINE 0.2 (NORMAL) E.U./dL (NORMAL)
[2018-01-02 15:37] LABS: BACTERIA,URINE Rare /HPF (None Seen); RBC,URINE 0-5 /HPF (0-5); SQUAMOUS EPITHELIAL CELL,UR RARE Squamous (<= Few); WBC CLUMPS,URINE PRESENT
[2018-01-02] MEDS: AMPICILLIN/SULBACTAM 3 GM in SODIUM CHLORIDE 0.9% MINIBAG 100 ML IV SCH ×2 (16:18→20:50)
[2018-01-02] MEDS ORDERED: levoFLOXacin 750 MG/150 ML 750 MG/150 ML BAG IV SCH (18:00)
[2018-01-02] MEDS: SENNA 8.6 MG TABLET PO SCH (20:45)
[2018-01-02] MEDS: DOCUSATE SODIUM 250 MG CAPSULE PO SCH (20:46)
[2018-01-02] MEDS: ACETAMINOPHEN 325 MG TABLET PO PRN (22:06)
[2018-01-03] MEDS: HYDROmorphone 2 MG/ML VIAL IVP PRN ×2 (01:31→06:33)
[2018-01-03] MEDS: SODIUM CHLORIDE FLUSH 0.9% 10 ML SYRINGE IVP SCH ×3 (01:34→16:43)
[2018-01-03] MEDS: SODIUM CHLORIDE FLUSH 0.9% 10 ML SYRINGE IVP PRN ×2 (01:34→21:31)
[2018-01-03] MEDS: oxyCODONE 5 MG TABLET PO PRN ×5 (02:10→21:31)
[2018-01-03] MEDS: AMPICILLIN/SULBACTAM 3 GM in SODIUM CHLORIDE 0.9% MINIBAG 100 ML IV SCH ×4 (04:44→21:31)
[2018-01-03 05:26] LABS: HGB - HEMOGLOBIN 10.7 g/dL (12.0-16.0); MEAN CORPUSCULAR HEMOGLOBIN 31.2 pg (27.0-31.0); MEAN CORPUSCULAR HGB CONC 32.4 g/dL (32.0-36.0); MEAN CORPUSCULAR VOLUME 96.3 fL (81.0-99.0); MEAN PLATELET VOLUME 9.7 fL (7.9-10.8); RED BLOOD COUNT 3.44 10^6/uL (4.20-5.40); RED CELL DISTRIBUTION WIDTH 13.7 % (12.0-15.0); WHITE BLOOD COUNT 11.7 x10^3/uL (4.8-10.8)
[2018-01-03 05:28] LABS: CALCIUM 8.4 mg/dL (8.5-10.3); CREATININE 0.8 mg/dL (0.4-1.0); MAGNESIUM 1.7 mg/dL (1.7-2.8); PHOSPHORUS 4.2 mg/dL (2.5-4.6); VANCOMYCIN,RANDOM 23.2 ug/mL
[2018-01-03] MEDS: GABAPENTIN 300 MG CAPSULE PO SCH ×3 (06:27→21:30)
[2018-01-03] MEDS: SODIUM CHLORIDE 1 GM TABLET PO SCH ×3 (06:27→21:30)
[2018-01-03] MEDS ORDERED: MIN OIL/DIMETHICON/COCONUT OIL 92 GM TUBE TOP PRN (06:46)
[2018-01-03] MEDS: ONDANSETRON 4 MG/2 ML VIAL IVP PRN (06:59)
[2018-01-03] MEDS: INSULIN ASPART 300 UNIT/3 ML PEN SUBQ SCH ×8 (08:24→21:31)
[2018-01-03] MEDS: ACETAMINOPHEN 325 MG TABLET PO PRN ×4 (09:13→21:30)
[2018-01-03] MEDS: SACCHAROMYCES BOULARDII 250 MG CAPSULE PO SCH ×2 (09:13→16:43)
[2018-01-03] MEDS: LOSARTAN 50 MG TABLET PO SCH (09:13)
[2018-01-03] MEDS: MULTIVITAMIN W/MINERALS TABLET PO SCH (09:14)
[2018-01-03] MEDS: DOCUSATE SODIUM 250 MG CAPSULE PO SCH ×2 (09:14→13:24)
[2018-01-03] MEDS: NEUTRA-PHOS 250 MG TABLET PO SCH ×3 (09:14→16:43)
[2018-01-03] MEDS: POTASSIUM CHLORIDE 20 MEQ TABLET PO SCH (09:14)
[2018-01-03] MEDS: ATORVASTATIN 10 MG TABLET PO SCH (09:14)
[2018-01-03] MEDS: amLODIPine 5 MG TABLET PO SCH (09:14)
[2018-01-03] MEDS: SENNA 8.6 MG TABLET PO SCH ×3 (09:14→17:23)
[2018-01-03] MEDS: METOPROLOL SUCCINATE 50 MG TABLET PO SCH (09:14)
[2018-01-03] MEDS: FAMOTIDINE 20 MG TABLET PO SCH (09:14)
[2018-01-03] MEDS: hydroCHLOROthiazide 25 MG TABLET PO SCH (09:14)
[2018-01-03] MEDS: ENOXAPARIN 30 MG/0.3 ML SYRINGE SUBQ SCH (09:15)
[2018-01-03] MEDS: POLYETHYLENE GLYCOL 3350 17 GM PACKET PO SCH (09:15)
[2018-01-03] MEDS: INSULIN GLARGINE 300 UNIT/3 ML PEN SUBQ SCH (09:17)
[2018-01-03] MEDS: VANCOMYCIN INJ 1 GM in SODIUM CHLORIDE 0.9% 250 ML IV SCH (13:20)
--- NOTE | 2018-01-03 17:19 | PROVIDER PROGRESS NOTE ---
Subjective - Prog Note Date Prog Note Date: 01/03/18 Prog Note Time: 16:15 - Subjective Pt reports feeling: Improved Subjective: The patient continues to feel more energy and strength today. She denies any shortness of breath, fevers, chills, nausea or vomiting. Current Medications - Current Medications Current Medications: Active Medications Generic Name Dose Route Start Last Admin Trade Name Freq PRN Reason Stop Dose Admin Acetaminophen 650 mg 12/29/17 19:14 01/03/18 13:19 Tylenol PO 650 mg Q4HR PRN Administration Pain 1 to 4 Amlodipine Besylate 10 mg 12/30/17 09:00 01/03/18 09:14 Norvasc PO 10 mg DAILY BRENDON Administration Atorvastatin Calcium 10 mg 12/30/17 09:00 01/03/18 09:14 Lipitor PO 10 mg DAILY BRENDON Administration Docusate Sodium 250 - 500 mg 01/02/18 21:00 01/03/18 13:24 Colace 250mg Capsule PO 500 mg DAILY BRENDON Administration Enoxaparin Sodium 30 mg 12/30/17 09:00 01/03/18 09:15 Lovenox SUBQ 30 mg DAILY BRENDON Administration Famotidine 20 mg 12/30/17 09:00 01/03/18 09:14 Pepcid PO 20 mg DAILY BRENDON Administration Fluconazole 150 mg 12/29/17 23:45 01/01/18 23:46 Diflucan PO 01/04/18 23:46 150 mg Q72H BRENDON Administration Gabapentin 300 mg 01/02/18 14:00 01/03/18 13:22 Neurontin PO 300 mg TID BRENDON Administration Hydrochlorothiazide 25 mg 12/30/17 17:00 01/03/18 09:14 Hydrodiuril PO 25 mg DAILY BRENDON Administration Hydroxyzine Pamoate 50 mg 12/29/17 19:11 Vistaril PO Q6H PRN Anxiety Sodium Chloride 500 mls @ 0 mls/hr 12/31/17 02:47 12/31/17 07:01 Normal Saline 0.9% IV Infused Q24H PRN Infusion TKO RATE TKO Ampicillin Sodium/Sulbactam 100 mls @ 200 mls/hr 01/02/18 16:00 01/03/18 16: 43 Sodium 3 gm/ Sodium Chloride IV 200 mls/hr Q6H BRENDON Administration Vancomycin HCl 1 gm/ Sodium 250 mls @ 167 mls/hr 01/03/18 12:00 01/03/18 14: 50 Chloride IV Infused Q12H BRENDON Infusion Insulin Aspart 5 unit 12/31/17 08:00 01/03/18 12:03 Novolog SUBQ 5 unit QDBREAKFAST BRENDON Administration Protocol Insulin Aspart 5 unit 12/31/17 12:00 01/03/18 12:05 Novolog SUBQ 5 unit QDLUNCH BRENDON Administration Protocol Insulin Aspart 5 unit 12/31/17 17:00 01/03/18 17:06 Novolog SUBQ 5 unit QDDINNER BRENDON Administration Protocol Insulin Aspart 3 - 11 unit 01/03/18 12:00 01/03/18 17:07 Novolog SUBQ 7 unit 0800,1200,1700,2100 BRENDON Administration Protocol Insulin Glargine 25 unit 01/02/18 16:27 01/03/18 09:17 Lantus Solostar SUBQ 25 unit DAILY BRENDON Administration Lorazepam 1 mg 12/29/17 19:11 01/02/18 08:02 Ativan PO 1 mg TID PRN Administration Agitation Losartan Potassium 100 mg 12/30/17 13:00 01/03/18 09:13 Cozaar PO 100 mg DAILY BRENDON Administration Metoprolol Succinate 50 mg 12/30/17 17:00 01/03/18 09:14 Toprol Xl PO 50 mg DAILY BRENDON Administration Mineral Oil 1 applic 01/03/18 06:46 01/03/18 07:01 Cavilon TOP 1 applic PRN PRN Administration Skin Care Multivitamins/Minerals 1 tab 01/01/18 13:00 01/03/18 09:14 Theragran M PO 1 tab DAILYWM BRENDON Administration Ondansetron HCl 4 mg 12/29/17 19:14 01/03/18 06:59 Zofran Inj IVP 4 mg Q6HR PRN Administration Nausea / Vomiting Oxycodone HCl 5 mg 12/29/17 19:14 01/03/18 02:10 Roxicodone PO 5 mg Q4HR PRN Administration Pain 5 to 7 Oxycodone HCl 10 mg 12/29/17 20:53 01/03/18 13:19 Roxicodone PO 10 mg Q4HR PRN Administration PAIN Polyethylene Glycol 17 gm 01/02/18 09:00 01/03/18 09:15 Miralax PO 17 gm DAILY BRENDON Administration Potassium Chloride 20 meq 12/30/17 17:00 01/03/18 09:14 K-Dur PO 20 meq DAILYWM BRENDON Administration Prochlorperazine Edisylate 10 mg 12/29/17 19:14 Compazine Inj IVP Q6HR PRN Nausea / Vomiting Saccharomyces Boulardii 250 mg 01/01/18 17:00 01/03/18 16:43 Florastor PO 250 mg 0800,1700 BRENDON Administration Senna 8.6 - 17.2 mg 01/02/18 21:00 01/03/18 13:24 Senokot PO 17.2 mg DAILY BRENDON Administration Sodium Chloride 10 ml 12/30/17 01:00 01/03/18 16:43 Normal Saline Flush 0.9% IVP 10 ml 0100,0900,1700 BRENDON Administration Sodium Chloride 10 ml 12/29/17 19:14 01/03/18 01:34 Normal Saline Flush 0.9% IVP 10 ml PRN PRN Administration NEEDED PER PROVIDER ORDERS Sodium Chloride 1 gm 12/31/17 16:00 01/03/18 13:19 Salt Tab PO 1 gm TID BRENDON Administration Sodium Phosphate 250 mg 12/31/17 17:00 01/03/18 16:43 K-Phos Neutral PO 250 mg TIDWM BRENDON Administration Zolpidem Tartrate 5 mg 12/29/17 19:14 Ambien PO QPM PRN Insomnia Allopurinol 100 mg PO DAILY 10/18/16 Atorvastatin [Lipitor] 10 mg PO DAILY 10/18/16 Losartan [Cozaar] 100 mg PO DAILY 10/18/16 Omeprazole 20 mg PO DAILY 10/18/16 metFORMIN [Glucophage] 1,000 mg PO BID 10/18/16 Insulin Glargine,Hum.rec.anlog [Basaglar Kwikpen U-100] 21 unit SQ DAILY Gabapentin 300 mg PO TID 08/07/17 Insulin Lispro [Humalog Kwikpen U-100] 5 units SUBQ TIDWM 08/07/17 hydrOXYzine HCl [Hydroxyzine HCl] 50 mg PO Q6H PRN 12/29/17 Mv,Ca,Min/Folic Acid/Vit K1 [One-A-Day Women's 50 Plus Tab] 1 each PO DAILY 09/14 Objective - Vital Signs/Intake & Output Reviewed Vital Signs: Yes Vital Signs: Vital Signs x48h Temp Pulse Resp BP Pulse Ox 01/03/18 15:51 36.6 C 78 16 105/63 98 01/03/18 14:20 36.7 C 76 18 105/61 99 01/03/18 10:08 36.8 C 88 18 120/75 99 Intake & Output: Intake & Output 12/31/17 01/01/18 01/02/18 01/03/18 23:59 23:59 23:59 23:59 Intake Total 3656.267 2406.6652 1320 1670 Output Total 721 301 6014 1300 Balance 2956.267 1556.6648 -155 370 - Objective General Appearance: positive: No acute distress, Lethargic Eyes Bilateral: positive: Normal inspection, PERRL, EOMI, No lid inflammation, Conjunctivae nml, No scleral icterus ENT: positive: ENT inspection nml, Pharynx nml, No signs of dehydration Neck: positive: Nml inspection, Thyroid nml, No JVD, Trachea midline. negative : Thyromegaly Respiratory: positive: Chest non-tender, No respiratory distress, Rhonchi. negative: Wheezes, Rales Cardiovascular: positive: Regular rate & rhythm, No murmur, No gallop Abdomen: positive: Non-tender, No organomegaly, Nml bowel sounds, No distention. negative: Guarding, Rebound Skin: positive: Other (Pt has multiple gluteal and perineal abscesses) Extremities: positive: Non-tender, Full ROM, Nml appearance, No pedal edema Neurologic/Psychiatric: positive: Oriented x3, CN's nml (2-12), Motor nml, Sensation nml, Mood/affect nml - Lab Results Fish Bones: 01/03/18 05:03 01/03/18 05:03 Other Labs: Lab Results x24hrs 01/03/18 01/03/18 01/03/18 Range/Units 16:42 11:27 07:43 WBC (4.8-10.8) x10^3/uL RBC (4.20-5.40) 10^6/uL Hgb (12.0-16.0) g/dL Hct (37.0-47.0) % MCV (81.0-99.0) fL MCH (27.0-31.0) pg MCHC (32.0-36.0) g/dL RDW (12.0-15.0) % Plt Count (130-450) 10^3/uL MPV (7.9-10.8) fL Sodium (135-145) mmol/L Potassium (3.5-5.0) mmol/L Chloride (101-111) mmol/L Carbon Dioxide (21-32) mmol/L Anion Gap (6-13) BUN (6-20) mg/dL Creatinine (0.4-1.0) mg/dL Estimated GFR (MDRD) (>89) Glucose (70-100) mg/dL POC Whole Bld Glucose 226 H 377 H 252 H (70 - 100) mg/dL Calcium (8.5-10.3) mg/dL Phosphorus (2.5-4.6) mg/dL Magnesium (1.7-2.8) mg/dL TSH (0.34-5.60) uIU/mL Last Dose Date Last Dose Time Random Vancomycin ug/mL 01/03/18 01/03/18 01/03/18 Range/Units 05:03 05:03 05:03 WBC (4.8-10.8) x10^3/uL RBC (4.20-5.40) 10^6/uL Hgb (12.0-16.0) g/dL Hct (37.0-47.0) % MCV (81.0-99.0) fL MCH (27.0-31.0) pg MCHC (32.0-36.0) g/dL RDW (12.0-15.0) % Plt Count (130-450) 10^3/uL MPV (7.9-10.8) fL Sodium 132 L (135-145) mmol/L Potassium 4.2 (3.5-5.0) mmol/L Chloride 98 L (101-111) mmol/L Carbon Dioxide 27 (21-32) mmol/L Anion Gap 7.0 (6-13) BUN 9 (6-20) mg/dL Creatinine 0.8 (0.4-1.0) mg/dL Estimated GFR (MDRD) 76 L (>89) Glucose 246 H (70-100) mg/dL POC Whole Bld Glucose (70 - 100) mg/dL Calcium 8.4 L (8.5-10.3) mg/dL Phosphorus 4.2 (2.5-4.6) mg/dL Magnesium 1.7 (1.7-2.8) mg/dL TSH 2.03 (0.34-5.60) uIU/mL Last Dose Date 01-02-18 Last Dose Time 1500 Random Vancomycin 23.2 ug/mL 01/03/18 01/02/18 Range/Units 05:03 20:21 WBC 11.7 H (4.8-10.8) x10^3/uL RBC 3.44 L (4.20-5.40) 10^6/uL Hgb 10.7 L (12.0-16.0) g/dL Hct 33.2 L (37.0-47.0) % MCV 96.3 (81.0-99.0) fL MCH 31.2 H (27.0-31.0) pg MCHC 32.4 (32.0-36.0) g/dL RDW 13.7 (12.0-15.0) % Plt Count 435 (130-450) 10^3/uL MPV 9.7 (7.9-10.8) fL Sodium (135-145) mmol/L Potassium (3.5-5.0) mmol/L Chloride (101-111) mmol/L Carbon Dioxide (21-32) mmol/L Anion Gap (6-13) BUN (6-20) mg/dL Creatinine (0.4-1.0) mg/dL Estimated GFR (MDRD) (>89) Glucose (70-100) mg/dL POC Whole Bld Glucose 298 H (70 - 100) mg/dL Calcium (8.5-10.3) mg/dL Phosphorus (2.5-4.6) mg/dL Magnesium (1.7-2.8) mg/dL TSH (0.34-5.60) uIU/mL Last Dose Date Last Dose Time Random Vancomycin ug/mL - Diagnostic Imaging Diagnostic Imaging Results: positive: Final report reviewed Diagnostic Imaging Comments: EXAM: Chest 1 View X-Ray DATE: 01/02/2018 10:27 AM CLINICAL HISTORY: cough COMPARISON: 01/01/2018 TECHNIQUE: Single view of the chest. FINDINGS: Lungs/Pleura: Stable right lower lobe parenchymal opacity. Minimal left basilar atelectasis. No definite effusion or pneumothorax. Mediastinum: Within exam limitations, cardiomediastinal contour is normal. Other: Old, healed rib fractures. IMPRESSION: Stable right basilar infiltrate. Minimal left basilar atelectasis. ABX Reporting Has patient been on IV antibiotics over the past 48 hours?: Yes Assessment/Plan - Problem List (1) Hyponatremia Impression: The patient's sodium today is 132, up from 126 after receiving a bolus of hyper tonic saline yesterday. She is on saline IV fluids and is also taking oral saline in the form of salt tablets. Despite this we have not been able to raise the patient's sodium levels without the use of hypertonic saline. I have sent out labs for testing for SIADH however these will take several days to come back and we are currently collecting a 24 hour urine sodium. We will continue to monitor and correct as necessary. (2) Abscess Impression: The patient has multiple perineal and gluteal abscesses, presumably from IV drug use, in very stages of healing. She had been on Levaquin and vancomycin however these appeared to be worsening and her leukocyte count was climbing so I changed the Levaquin to Unasyn, keeping the vancomycin in place. The patient has had a significant improvement in her leukocyte count going from 15.7 thousand down to 11.9 thousand overnight. We will continue present care. The patient may need continued IV antibiotics upon discharge. (3) Hypertension Impression: The patient's blood pressure is under good control today. She is currently taking losartan, metoprolol, Amlodipine and hydroxyzine. Continue present care. Qualifiers: Hypertension type: essential hypertension Qualified Code(s): I10 - Essential (primary) hypertension (4) Hypokalemia Impression: The patient's potassium levels have been corrected. Her potassium today is 4.2. Continue present care. (5) Vaginal yeast infection Impression: The patient has responded well to Diflucan and is not complaining of any yeast infection symptoms at this time. (6) Pneumonia Impression: The patient had been on vancomycin and Levaquin prior to today and has responded well. Chest x-ray done today showed a stable right basilar infiltrate with minimal left basilar atelectasis. She will continue to receive vancomycin and Unasyn which should also cover any pneumonia that she is having. Qualifiers: Pneumonia type: due to unspecified organism Laterality: right Lung location: lower lobe of lung Qualified Code(s): J18.1 - Lobar pneumonia, unspecified organism (7) Polysubstance abuse Impression: The patient has a history of polysubstance abuse including methamphetamine, heroin, marijuana, and alcohol. She has been counseled multiple times on the need to quit the above. She has told the nurse that she is not doing any more drugs. According to her roommate the patient had been using heroin for the last for 5 days prior to admission, 5 days ago. We will no longer need to monitor her closely for signs of withdrawal. (8) DKA (diabetic ketoacidoses) Impression: Resolved/corrected. The patient is off of the insulin drip and has been getting long-acting and short-acting insulin. She is much more awake than on admission, and appears stable. We transferred her to a bed on the medical/ surgical floor 2 days ago on 01/01/2018. Qualifiers: Diabetes mellitus type: type 2 Diabetes mellitus complication detail: without coma Qualified Code(s): E11.10 - Type 2 diabetes mellitus with ketoacidosis without coma (9) CAN (acute kidney injury) Impression: Presumably due to dehydration. Resolved. The patient's creatinine on admission was 2.1. It is 0.8 today. BUN was 32 on admission and it is 9 today. Continue present care. (10) High anion gap metabolic acidosis Impression: Corrected within 12 hours of admission. The patient's anion gap today is 7.0.
[2018-01-03] MEDS ORDERED: CALCIUM CARBONATE CHEW 500 MG TABLET PO PRN (20:50)
[2018-01-03] MEDS ORDERED: MAGNESIUM CITRATE 296 ML BOTTLE PO ONE (22:00)
[2018-01-03] MEDS: LORazepam 0.5 MG TABLET PO PRN (23:50)
[2018-01-04] MEDS: VANCOMYCIN INJ 1 GM in SODIUM CHLORIDE 0.9% 250 ML IV SCH ×2 (00:02→13:02)
[2018-01-04] MEDS: SODIUM CHLORIDE FLUSH 0.9% 10 ML SYRINGE IVP SCH ×3 (02:00→16:33)
[2018-01-04] MEDS: AMPICILLIN/SULBACTAM 3 GM in SODIUM CHLORIDE 0.9% MINIBAG 100 ML IV SCH ×4 (03:55→21:15)
[2018-01-04] MEDS: SODIUM CHLORIDE 1 GM TABLET PO SCH ×3 (05:32→21:14)
[2018-01-04] MEDS: GABAPENTIN 300 MG CAPSULE PO SCH ×3 (05:32→21:14)
[2018-01-04] MEDS: oxyCODONE 5 MG TABLET PO PRN ×5 (05:32→21:14)
[2018-01-04 06:19] LABS: HGB - HEMOGLOBIN 11.8 g/dL (12.0-16.0); MEAN CORPUSCULAR HEMOGLOBIN 31.4 pg (27.0-31.0); MEAN CORPUSCULAR HGB CONC 32.4 g/dL (32.0-36.0); MEAN PLATELET VOLUME 9.9 fL (7.9-10.8); RED BLOOD COUNT 3.75 10^6/uL (4.20-5.40); RED CELL DISTRIBUTION WIDTH 13.3 % (12.0-15.0); WHITE BLOOD COUNT 12.6 x10^3/uL (4.8-10.8)
[2018-01-04 06:22] LABS: CALCIUM 8.4 mg/dL (8.5-10.3); MAGNESIUM 1.3 mg/dL (1.7-2.8); PHOSPHORUS 4.5 mg/dL (2.5-4.6)
[2018-01-04] MEDS: METOPROLOL SUCCINATE 50 MG TABLET PO SCH (08:18)
[2018-01-04] MEDS: MULTIVITAMIN W/MINERALS TABLET PO SCH (08:18)
[2018-01-04] MEDS: hydroCHLOROthiazide 25 MG TABLET PO SCH (08:18)
[2018-01-04] MEDS: SACCHAROMYCES BOULARDII 250 MG CAPSULE PO SCH ×2 (08:18→16:33)
[2018-01-04] MEDS: POTASSIUM CHLORIDE 20 MEQ TABLET PO SCH (08:18)
[2018-01-04] MEDS: amLODIPine 5 MG TABLET PO SCH (08:18)
[2018-01-04] MEDS: NEUTRA-PHOS 250 MG TABLET PO SCH ×2 (08:18→16:33)
[2018-01-04] MEDS: FAMOTIDINE 20 MG TABLET PO SCH (08:18)
[2018-01-04] MEDS: LOSARTAN 50 MG TABLET PO SCH (08:19)
[2018-01-04] MEDS: MAGNESIUM SULFATE 2 GRAM 2 GM/50 ML BAG IV SCH ×3 (08:19→11:54)
[2018-01-04] MEDS: INSULIN ASPART 300 UNIT/3 ML PEN SUBQ SCH ×6 (08:19→21:15)
[2018-01-04] MEDS: ATORVASTATIN 10 MG TABLET PO SCH (08:19)
[2018-01-04] MEDS: ENOXAPARIN 30 MG/0.3 ML SYRINGE SUBQ SCH (08:19)
[2018-01-04] MEDS: INSULIN GLARGINE 300 UNIT/3 ML PEN SUBQ SCH (08:20)
[2018-01-04] MEDS: DOCUSATE SODIUM 250 MG CAPSULE PO SCH (08:20)
[2018-01-04] MEDS: POLYETHYLENE GLYCOL 3350 17 GM PACKET PO SCH (08:23)
[2018-01-04] MEDS: LORazepam 0.5 MG TABLET PO PRN ×2 (08:34→18:58)
[2018-01-04] MEDS: ACETAMINOPHEN 325 MG TABLET PO PRN (16:33)
[2018-01-04] MEDS ORDERED: NICOTINE 7 MG PATCH TOP SCH (21:00)
[2018-01-04] MEDS: FLUCONAZOLE 100 MG TABLET PO SCH (21:14)
[2018-01-04] MEDS: NICOTINE 7 MG PATCH TOP SCH (21:15)
[2018-01-04] MEDS: SODIUM CHLORIDE FLUSH 0.9% 10 ML SYRINGE IVP PRN (21:15)
[2018-01-05] MEDS: LORazepam 0.5 MG TABLET PO PRN ×2 (00:22→09:47)
[2018-01-05] MEDS: VANCOMYCIN INJ 1 GM in SODIUM CHLORIDE 0.9% 250 ML IV SCH ×2 (00:23→13:16)
[2018-01-05] MEDS: oxyCODONE 5 MG TABLET PO PRN ×2 (01:39→09:55)
[2018-01-05] MEDS: AMPICILLIN/SULBACTAM 3 GM in SODIUM CHLORIDE 0.9% MINIBAG 100 ML IV SCH ×3 (03:19→16:34)
[2018-01-05] MEDS: SODIUM CHLORIDE FLUSH 0.9% 10 ML SYRINGE IVP SCH ×2 (03:55→10:30)
[2018-01-05] MEDS: GABAPENTIN 300 MG CAPSULE PO SCH ×2 (06:20→13:20)
[2018-01-05] MEDS: SODIUM CHLORIDE 1 GM TABLET PO SCH ×2 (06:20→13:20)
[2018-01-05 08:14] LABS: HGB - HEMOGLOBIN 11.6 g/dL (12.0-16.0); MEAN CORPUSCULAR HEMOGLOBIN 31.1 pg (27.0-31.0); MEAN CORPUSCULAR HGB CONC 32.6 g/dL (32.0-36.0); MEAN CORPUSCULAR VOLUME 95.5 fL (81.0-99.0); MEAN PLATELET VOLUME 8.7 fL (7.9-10.8); RED BLOOD COUNT 3.73 10^6/uL (4.20-5.40); RED CELL DISTRIBUTION WIDTH 13.7 % (12.0-15.0); WHITE BLOOD COUNT 13.6 x10^3/uL (4.8-10.8)
[2018-01-05 08:24] LABS: CALCIUM 8.5 mg/dL (8.5-10.3); MAGNESIUM 1.7 mg/dL (1.7-2.8)
[2018-01-05] MEDS: INSULIN ASPART 300 UNIT/3 ML PEN SUBQ SCH ×4 (08:41→13:06)
[2018-01-05] MEDS: NEUTRA-PHOS 250 MG TABLET PO SCH (09:47)
[2018-01-05] MEDS: MULTIVITAMIN W/MINERALS TABLET PO SCH (09:47)
[2018-01-05] MEDS: SACCHAROMYCES BOULARDII 250 MG CAPSULE PO SCH (09:48)
[2018-01-05] MEDS: POTASSIUM CHLORIDE 20 MEQ TABLET PO SCH (09:49)
[2018-01-05] MEDS: ONDANSETRON 4 MG/2 ML VIAL IVP PRN (09:54)
[2018-01-05] MEDS: amLODIPine 5 MG TABLET PO SCH (09:54)
[2018-01-05] MEDS: METOPROLOL SUCCINATE 50 MG TABLET PO SCH (09:55)
[2018-01-05] MEDS: ATORVASTATIN 10 MG TABLET PO SCH (09:56)
[2018-01-05] MEDS: FAMOTIDINE 20 MG TABLET PO SCH (09:56)
[2018-01-05] MEDS: hydroCHLOROthiazide 25 MG TABLET PO SCH (09:57)
[2018-01-05] MEDS: LOSARTAN 50 MG TABLET PO SCH (09:57)
[2018-01-05] MEDS: ENOXAPARIN 30 MG/0.3 ML SYRINGE SUBQ SCH (09:59)
[2018-01-05] MEDS: INSULIN GLARGINE 300 UNIT/3 ML PEN SUBQ SCH (10:27)
[2018-01-05] MEDS: POLYETHYLENE GLYCOL 3350 17 GM PACKET PO SCH (10:29)
[2018-01-05] MEDS: SENNA 8.6 MG TABLET PO SCH (10:29)
[2018-01-05] MEDS: DOCUSATE SODIUM 250 MG CAPSULE PO SCH (10:29)
[2018-01-05] MEDS: NICOTINE 7 MG PATCH TOP SCH (10:54)
[2018-01-05 15:53] VITALS: BP 98/68
--- NOTE | 2018-01-05 16:44 | Discharge Plan ---
Discharge Plan Disposition: 07 Against Medical Advice Condition: Stable Diet: Diabetic Activity Restrictions: Activity as Tolerated Shower Restrictions: No Driving Restrictions: No Weight Bearing: Full Weight Instruction Topics: Health Belief Model HC Provider Additional Instructions or Follow Up instructions: You have an active infection. It is vital that you continue to take antibiotics for this. You must follow-up with a physician immediately. No Smoking: If you smoke, Please STOP! Call for help. Follow-up with: Roseanne Lara ARNP [Primary Care Provider] -
--- NOTE | 2018-01-05 16:49 | DISCHARGE SUMMARY ---
Discharge Summary Admit Date: 12/29/17 Discharge Date: 01/05/18 Discharging Provider: Regi Mac DO Primary Care Provider: Jami Patel Code Status: Attempt Resuscitation Condition at Discharge: Stable Discharge Disposition: Against Medical Advice - DIAGNOSES Admission Diagnoses: 1. Diabetic ketoacidosis 2. Pneumonia 3. Abscess 4. Vaginal yeast infection 5. Acute kidney injury 6. High anion gap metabolic acidosis 7. Abdominal pain 8. Hypertension 9. Hypokalemia 10. Hyponatremia 11. Polysubstance abuse Discharge Diagnoses with Status of Each Condition: 1. Diabetic ketoacidosis- Corrected/resolved. The patient's roommate relates that she was taking heroin instead of her insulin for the 5 days prior to admission. The patient denies this. 2. Pneumonia- Patient has received vancomycin, Levaquin, Unasyn, and Diflucan during her hospitalization. Her chest x-ray shows significant improvement at this time, she is not short of breath, she is afebrile without cough. 3. Abscess- The patient has multiple gluteal abscesses which are in various stages of healing. She had 2 abscesses near her hip drained just 2 weeks prior to this admission. Her leukocytes have been slowly increasing over the last 3 days and I have consulted with the [facility] infectious disease specialists however, again, the patient is leaving AMA. I strongly recommend against this and also strongly recommend that she continue with antibiotics immediately. She says that she will be coming back to the hospital after she takes care of whatever she has to take care of today. 4. Vaginal yeast infection- The patient has received 3 doses of 150 mg of Diflucan spaced 72 hours apart. 5. Acute kidney injury- Resolved with hydration, creatinine today is 1.0. 6. High anion gap metabolic acidosis- corrected/resolved. 7. Abdominal pain- no complaints for several days. 8. Hypertension- Well-managed, the patient's blood pressures have been low normal. 9. Hypokalemia- Corrected, the patient's potassium today is 3.8 10. Hyponatremia- Corrected, the patient's sodium today is 135 11. Polysubstance abuse history, The patient says she is done with using drugs but has a long history of multiple substance abuse. Local recovery program information was offered to the patient. - HPI History of Present Illness: Patient is a 52-year-old female with a past medical history significant for hypertension, type 2 diabetes mellitus on insulin, anxiety, gout, polysubstance abuse, history of splenic infarct, GERD, chronic pancreatitis and history of alcohol abuse who presented to the emergency department with a chief complaint of abdominal pain. The patient states that she was in her normal state of health until about 3 days ago when she states that she began having polydipsia, generalized weakness, nausea and vomiting. She states that that time she felt so weak that she could not even get out of her bed to go and find her insulin. She states that she has not taken her insulin for the last 3 days because she has been unable to find it. She also states that she has been having chills and has been losing weight for the last few years. She states that today along with feeling weak she also began having epigastric abdominal pain. She states it was associated with nausea and vomiting. She also admits that her polydipsia has been worsening over the last 3 days. She also has polyuria. On further questioning the patient also admits to a cough that has been worsening over the last week. She states that she is also had some right sided chest pain with deep inspiration. She states that last week she did come to the emergency department and was diagnosed with pneumonia and placed on antibiotics which she states that she has been taking. She states that at that time she was also found to have a gluteal abscess that was drained in the emergency department. The patient states that her abdominal pain has been worsening over the day and is localized in the epigastric area without any radiation. She states the pain is anywhere from a 6 to an 8 out of 10. She states that it is a sharp burning pain. She states that it did improve slightly with pain medication in the emergency department. The patient also states that she has had swelling of her wrist and hands due to a gout flareup. She also admits to a rash in her groin area. The patient states that she has been living with a friend who is her roommate. According to the emergency room records the patient 's roommate states that the patient has been taking heroin for the last several days and according to the triage report the patient claimed to have lost her insulin for the last for 5 days. The patient denies any headaches, dizziness, blurred vision, runny nose, sore throat, nasal congestion, difficulty swallowing, shortness of air, orthopnea, PND, increased lower extremity swelling, diarrhea, constipation, back pain, neck stiffness, hair loss, night sweats, fevers or any focal neurologic deficits. On presentation to the emergency department the patient was afebrile and hypertensive and was not in any respiratory distress. The patient appeared disheveled looking, cachectic and ill appearing. The patient's lab work revealed a pH of 7.1 with a blood glucose of 979 and a bicarb of 7. The patient also had an anion gap of 31 with large serum ketones. The patient's creatinine was elevated at 2.1 from a baseline of 0.8. The patient also had a leukocytosis of 18.8 with 15% bands. The patient was diagnosed with diabetic ketoacidosis, placed on an insulin drip and admitted to the intensive care unit. The patient also received several liters of IV fluid in the emergency department. - HOSPITAL COURSE Hospital Course: The patient was admitted to the intensive care unit in diabetic ketoacidosis. This was corrected over the course of 48-72 hours. Patient was then brought to the medical floor for further treatment with her antibiotics. The patient's leukocytes began to rise after about 3 or 4 days and her Levaquin was changed to use Unasyn which brought the leukocyte count down significantly. Unfortunately has continued to rise over the last 2 days albeit slowly. I have also been correcting her multiple electrolyte abnormalities over this past week , many of which continue to require adjustment daily. Today the patient decided that she wanted to leave the hospital AGAINST MEDICAL ADVICE. I explained to her the potentially life-threatening consequences this could hold, especially with an active infection, however the patient says she wants to leave and will come back. - ALLERGIES Allergies/Adverse Reactions: Allergies Allergy/AdvReac Type Severity Reaction Status Date / Time morphine Allergy unknown Verified 12/29/17 17:00 - MEDICATIONS Home Medications: Ambulatory Orders Medication Instructions Recorded Confirmed Allopurinol 100 mg PO DAILY 10/18/16 12/30/17 Atorvastatin [Lipitor] 10 mg PO DAILY 10/18/16 12/30/17 Losartan [Cozaar] 100 mg PO DAILY 10/18/16 12/30/17 Omeprazole 20 mg PO DAILY 10/18/16 12/30/17 metFORMIN [Glucophage] 1,000 mg PO BID 10/18/16 12/30/17 Insulin Glargine,Hum.rec.anlog 21 unit SQ DAILY 07/30/17 12/30/17 [Basaglar Kwikpen U-100] Gabapentin 300 mg PO TID 08/07/17 12/30/17 Insulin Lispro [Humalog Kwikpen 5 units SUBQ TIDWM 08/07/17 12/30/17 U-100] hydrOXYzine HCl [Hydroxyzine HCl] 50 mg PO Q6H PRN 12/29/17 12/30/17 Mv,Ca,Min/Folic Acid/Vit K1 1 each PO DAILY 12/30/17 12/30/17 [One-A-Day Women's 50 Plus Tab] - PHYSICAL EXAM AT DISCHARGE General Appearance: positive: No acute distress, Alert Eyes Bilateral: positive: Normal inspection, PERRL, EOMI, No lid inflammation, Conjunctivae nml, No scleral icterus ENT: positive: ENT inspection nml, Pharynx nml, No signs of dehydration Neck: positive: Nml inspection, Thyroid nml, No JVD, Trachea midline. negative : Thyromegaly Respiratory: positive: Chest non-tender, No respiratory distress, Breath sounds nml. negative: Wheezes, Rales, Rhonchi Cardiovascular: positive: Regular rate & rhythm, No murmur, No gallop Peripheral Pulses: positive: 1+ Abdomen: positive: Non-tender, No organomegaly, Nml bowel sounds, No distention. negative: Guarding, Rebound Back: positive: Nml inspection. negative: CVA tenderness (R), CVA tenderness (L ) Skin: positive: Color nml, No rash, Warm, Dry. negative: Cyanosis Extremities: positive: Non-tender, Full ROM, Nml appearance, No pedal edema Neurologic/Psychiatric: positive: Oriented x3, CN's nml (2-12), Motor nml, Sensation nml, Mood/affect nml - LABS Result Diagrams: 01/05/18 08:05 01/05/18 08:05 - FOLLOW UP Follow Up: Follow-up with Jami Patel or another physician as soon as possible. You must get help for your active infection. It is potentially life-threatening. - TIME SPENT Time Spent in Discharge (Minutes): 50
== END 2018-01-05 16:15 | disposition left against medical advice (07) | DRG 637 ==
LOC: EDUNIT# → ED 16:48 → ICU 19:14 → MS3 01-01 18:17
PROVIDERS: ADMIT Internal Medicine; ATTEND Hospitalist
DX: E11.10 Type 2 diabetes mellitus with ketoacidosis without coma (principal); J18.1 Lobar pneumonia, unspecified organism; N17.9 Acute kidney failure, unspecified; E87.1 Hypo-osmolality and hyponatremia; L02.31 Cutaneous abscess of buttock; L02.215 Cutaneous abscess of perineum; Z53.20 Procedure and treatment not carried out because of patient's decision for unspecified reasons; T38.3X6A Underdosing of insulin and oral hypoglycemic [antidiabetic] drugs, initial encounter; Z91.138 Patient's unintentional underdosing of medication regimen for other reason; F11.10 Opioid abuse, uncomplicated; F15.10 Other stimulant abuse, uncomplicated; F12.10 Cannabis abuse, uncomplicated; F10.10 Alcohol abuse, uncomplicated; F17.210 Nicotine dependence, cigarettes, uncomplicated; B37.3 Candidiasis of vulva and vagina; E87.6 Hypokalemia; E86.0 Dehydration; E86.1 Hypovolemia; I10 Essential (primary) hypertension; E78.00 Pure hypercholesterolemia, unspecified; J45.909 Unspecified asthma, uncomplicated; F41.9 Anxiety disorder, unspecified; M10.9 Gout, unspecified; K21.9 Gastro-esophageal reflux disease without esophagitis; K74.60 Unspecified cirrhosis of liver; Z87.19 Personal history of other diseases of the digestive system; Z79.899 Other long term (current) drug therapy
CPT/HCPCS: 36415; 71045; 71250; 80048; 80053; 80202; 80306; 80320; 81001; 81003; 82009; 82803; 82947; 83036; 83690; 83735; 83930; 83935; 84100; 84132; 84443; 84484; 85025; 85027; 87086; 87150; 96360; 96361; 99283; 99284; 99285

== ENCOUNTER 2018-01-11 11:30 | Outpatient (CLI) | payer MEDICAID | END 2018-01-11 11:31 | disposition home or self-care (01) | LOC: EMS 11:30 | PROVIDERS: ATTEND Surgery | DX: R10.9 Unspecified abdominal pain (principal); R42 Dizziness and giddiness | CPT/HCPCS: A0425; A0429; A0999 ==

== ENCOUNTER 2018-01-11 11:52 | Emergency (ER) | payer MEDICAID ==
[2018-01-11] MEDS ORDERED: SODIUM CHLORIDE 0.9% 1,000 ML IV ONE (12:03)
[2018-01-11] MEDS ORDERED: THIAMINE INJ 100 MG in SODIUM CHLORIDE 0.9% 50 ML IV STA (12:03)
--- NOTE | 2018-01-11 12:33 | ED Physician Documentation ---
PD HPI ABD PAIN - Stated complaint Stated Complaint: ABD PX/DIZZY - Chief complaint Chief Complaint: Abd Pain - History obtained from History obtained from: Patient - History of Present Illness Timing - onset: Chronic (has had upper abd pains for weeks/months, to some degree. Worse with most foods. Worse with alxohol.) Timing - duration: Weeks Timing - details: Gradual onset, Still present, Waxing and waning Quality: Aching, Sharp, Pain Location: RUQ, Epigastric Radiation: Upper back Improved by: Vomiting. No: Eating Worsened by: Eating, Position (lying flat), Palpation. No: Moving, Breathing Associated symptoms: Nausea, Vomiting, Loss of appetite. No: Fever, Hematemesis , Diarrhea, Dysuria, Chest pain, Near syncope / syncope Similar symptoms before: Diagnosis (with gastritis related to alcohol versus gallbladder that has stones and had mild wall thickening on US last week.) Recently seen: Emergency Dept, Admitted Review of Systems Constitutional: denies: Fever, Chills, Myalgias Nose: denies: Rhinorrhea / runny nose, Congestion Throat: denies: Sore throat Cardiac: denies: Chest pain / pressure, Palpitations Respiratory: denies: Cough GI: reports: Abdominal Pain, Nausea, Vomiting. denies: Diarrhea, Hematemesis, Bloody / black stool : denies: Dysuria, Frequency Skin: denies: Rash, Lesions Musculoskeletal: reports: Back pain Neurologic: reports: Generalized weakness. denies: Focal weakness, Numbness, Near syncope, Altered mental status Psychiatric: reports: Anxiety. denies: Depressed Endocrine: reports: Weight loss, Easy bruising / bleeding Immunocompromised: reports: Immunocompromised, Asplenic PD PAST MEDICAL HISTORY - Past Medical History Cardiovascular: Hypertension, High cholesterol Respiratory: Asthma Neuro: None Endocrine/Autoimmune: Type 2 diabetes, Other GI: GERD, Ulcers, Pancreatitis, Cirrhosis : None HEENT: Other Psych: Depression Musculoskeletal: Gout Derm: Other - Past Surgical History Past Surgical History: Yes General: Splenectomy Ortho: Hip replacement, Rotator cuff repair, Other - Present Medications Home Medications: Ambulatory Orders Medication Instructions Recorded Confirmed Allopurinol 100 mg PO DAILY 10/18/16 12/30/17 Atorvastatin [Lipitor] 10 mg PO DAILY 10/18/16 12/30/17 Losartan [Cozaar] 100 mg PO DAILY 10/18/16 12/30/17 Omeprazole 20 mg PO DAILY 10/18/16 12/30/17 metFORMIN [Glucophage] 1,000 mg PO BID 10/18/16 12/30/17 Insulin Glargine,Hum.rec.anlog 21 unit SQ DAILY 07/30/17 12/30/17 [Basaglar Kwikpen U-100] Gabapentin 300 mg PO TID 08/07/17 12/30/17 Insulin Lispro [Humalog Kwikpen 5 units SUBQ TIDWM 08/07/17 12/30/17 U-100] hydrOXYzine HCl [Hydroxyzine HCl] 50 mg PO Q6H PRN 12/29/17 12/30/17 Mv,Ca,Min/Folic Acid/Vit K1 1 each PO DAILY 12/30/17 12/30/17 [One-A-Day Women's 50 Plus Tab] Dicyclomine [Bentyl] 10 mg PO QID PRN #20 capsule 01/11/18 HYDROcod/ACETAM 5/325 [[place] 5/325] 1 tab PO Q6H PRN #15 tablet 01/11/18 Lidocaine Viscous 2% [Xylocaine 5 ml PO Q4H PRN #1 bottle 01/11/18 Viscous 2%] Pantoprazole [Protonix] 40 mg PO DAILY #20 tablet 01/11/18 - Allergies Allergies/Adverse Reactions: Allergies Allergy/AdvReac Type Severity Reaction Status Date / Time morphine Allergy unknown Verified 01/11/18 11:58 - Living Situation Living Situation: reports: Alone Living Arrangement: reports: At home - Social History Does the pt smoke?: Yes Smoking Status: Current every day smoker Does the pt drink ETOH?: Yes Does the pt have substance abuse?: Yes Substance Use and Type: Marijuana - Family History Family history: reports: Non contributory - Immunizations Immunizations are current?: Yes - POLST Patient has POLST: No POLST Status: Full Code PD ED PE NORMAL - Vitals Vital signs reviewed: Yes - General General: Alert and oriented X 3, Well developed/nourished, Other (very thin and frail appearing. ) - HEENT HEENT: PERRL (nonicteric), Pharynx benign - Neck Neck: Supple, no meningeal sign, No adenopathy - Cardiac Cardiac: RRR, No murmur - Respiratory Respiratory: No respiratory distress, Clear bilaterally - Abdomen Abdomen: Soft, Non distended, Other (liver seems enlarged to palpation. Tender abd in epigastric and RUQ areas. WIth local guarding but no rebound nor percussion tendrness. ). No: Normal bowel sounds (diminished) - Female Female : Deferred - Rectal Rectal: Deferred - Back Back: No CVA TTP - Derm Derm: Normal color, Warm and dry - Extremities Extremities: No edema, No calf tenderness / cord - Neuro Neuro: Alert and oriented X 3, No motor deficit, Normal speech Results - Vitals Vitals: Vital Signs - 24 hr 01/11/18 01/11/18 01/11/18 11:54 15:21 16:09 Temperature 36.7 C Heart Rate 96 57 L 73 Respiratory 20 20 16 Rate Blood Pressure 117/77 148/91 H 134/81 H O2 Saturation 90 L 100 100 Oxygen O2 Source Room air - Labs Labs: Laboratory Tests 01/11/18 01/11/18 01/11/18 12:34 12:34 12:34 WBC 13.4 H RBC 3.60 L Hgb 11.3 L Hct 33.4 L MCV 92.9 MCH 31.5 H MCHC 34.0 RDW 12.8 Plt Count 542 H MPV 8.0 Neut # (Auto) 10.1 H Lymph # (Auto) 2.5 [place] # (Auto) 0.6 Eos # (Auto) 0.0 Baso # (Auto) 0.1 Absolute Nucleated RBC 0.01 Nucleated RBC % 0.0 VBG pH 7.461 H VBG pCO2 38.5 L VBG pO2 65.9 H VBG HCO3 26.8 VBG Total CO2 28.0 VBG O2 Saturation 94.7 H VBG Base Excess 3.0 H Sodium 131 L Potassium 3.9 Chloride 95 L Carbon Dioxide 26 Anion Gap 10.0 BUN 8 Creatinine 0.7 Estimated GFR (MDRD) 89 Glucose 197 H Calcium 8.1 L Magnesium 1.2 L Total Bilirubin 0.4 AST 18 ALT 13 Alkaline Phosphatase 130 H Total Protein 7.3 Albumin 2.4 L Globulin 4.9 H Albumin/Globulin Ratio 0.5 L Lipase 20 L Urine Color Urine Clarity Urine pH Ur Specific [place] Urine Protein Urine Glucose (UA) Urine Ketones Urine Occult Blood Urine Nitrite Urine Bilirubin Urine Urobilinogen Ur Leukocyte Esterase Ur Microscopic Review Urine Culture Comments Urine Opiates Screen Ur Oxycodone Screen Urine Methadone Screen Ur Propoxyphene Screen Ur Barbiturates Screen Ur Tricyclics Screen Ur Phencyclidine Scrn Ur Amphetamine Screen U Methamphetamines Scrn U Benzodiazepines Scrn Urine Cocaine Screen U Cannabinoids Screen Ethyl Alcohol < 5.0 Serum Ketones NEGATIVE 01/11/18 14:30 WBC RBC Hgb Hct MCV MCH MCHC RDW Plt Count MPV Neut # (Auto) Lymph # (Auto) [place] # (Auto) Eos # (Auto) Baso # (Auto) Absolute Nucleated RBC Nucleated RBC % VBG pH VBG pCO2 VBG pO2 VBG HCO3 VBG Total CO2 VBG O2 Saturation VBG Base Excess Sodium Potassium Chloride Carbon Dioxide Anion Gap BUN Creatinine Estimated GFR (MDRD) Glucose Calcium Magnesium Total Bilirubin AST ALT Alkaline Phosphatase Total Protein Albumin Globulin Albumin/Globulin Ratio Lipase Urine Color YELLOW Urine Clarity CLEAR Urine pH 6.5 Ur Specific [place] 1.015 Urine Protein NEGATIVE Urine Glucose (UA) 100 H Urine Ketones NEGATIVE Urine Occult Blood NEGATIVE Urine Nitrite NEGATIVE Urine Bilirubin NEGATIVE Urine Urobilinogen 0.2 (NORMAL) Ur Leukocyte Esterase NEGATIVE Ur Microscopic Review NOT INDICATED Urine Culture Comments NOT INDICATED Urine Opiates Screen POSITIVE H Ur Oxycodone Screen NEGATIVE Urine Methadone Screen NEGATIVE Ur Propoxyphene Screen NEGATIVE Ur Barbiturates Screen NEGATIVE Ur Tricyclics Screen NEGATIVE Ur Phencyclidine Scrn NEGATIVE Ur Amphetamine Screen NEGATIVE U Methamphetamines Scrn NEGATIVE U Benzodiazepines Scrn NEGATIVE Urine Cocaine Screen NEGATIVE U Cannabinoids Screen POSITIVE H Ethyl Alcohol Serum Ketones - Rads (name of study) RUQ U/S Radiology: Prelim report reviewed (similar to prior with stones and mild wall thickening. No surrounding fluid. ) PD MEDICAL DECISION MAKING - ED course Complexity details: re-evaluated patient (feeling better with GI cocktail and some pain meds. Seens to be more gastritis though I think some of her pain is biliary. ), considered differential (has gallstones and mild wall thickening. Surgical consult from Dr. Potter in recent hospitalization says patient would be very poor surgical candidate and would not be good for our facility if did need surgery. ), d/w patient - Sepsis Event Vital Signs: Vital Signs - 24 hr 01/11/18 01/11/18 01/11/18 11:54 15:21 16:09 Temperature 36.7 C Heart Rate 96 57 L 73 Respiratory 20 20 16 Rate Blood Pressure 117/77 148/91 H 134/81 H O2 Saturation 90 L 100 100 Oxygen O2 Source Room air Departure - Departure Disposition: Home, Self Care Clinical Impression: Gallstones Abdominal pain Qualifiers: Abdominal location: upper abdomen, unspecified Qualified Code(s): R10.10 - Upper abdominal pain, unspecified Gastritis Qualifiers: Gastritis type: unspecified gastritis Chronicity: acute Gastritis bleeding: without bleeding Qualified Code(s): K29.00 - Acute gastritis without bleeding Condition: Stable Record reviewed to determine appropriate education?: Yes Instructions: ED Gastritis Follow-Up: Roseanne Lara ARNP [Primary Care Provider] - Prescriptions: Dicyclomine [Bentyl] 10 mg PO QID PRN #20 capsule PRN Reason: Spasms HYDROcod/ACETAM 5/325 [[place] 5/325] 1 tab PO Q6H PRN #15 tablet PRN Reason: Pain Lidocaine Viscous 2% [Xylocaine Viscous 2%] 5 ml PO Q4H PRN #1 bottle PRN Reason: Pain Pantoprazole [Protonix] 40 mg PO DAILY #20 tablet Comments: Change from omeprazole to pantoprazole and see if it works more effectively. Add antacid such as Maalox or Mylanta with the lidocaine to help with stomach pains. Your pain seems to be irritated stomach called gastritis. However there may be some element from gallbladder inflammation as well. For that use dicyclomine if needed for spasms of the intestine and gallbladder. Add pain medicine if needed. Drink lots of fluids. Avoid alcohol. Continue your other usual medicines. Follow-up with your primary care Friday as planned. Discharge Date/Time: 01/11/18 16:09
[2018-01-11 12:38] LABS: VBG PH 7.461 (7.31-7.41)
[2018-01-11 12:39] LABS: VBG PCO2 38.5 mmHg (41-51); VBG PO2 65.9 mmHg (25-47)
[2018-01-11 12:41] LABS: BASOPHILS # (AUTO) 0.1 10^3/uL (0.0-0.1); BASOPHILS % (AUTO) 0.7 %; EOSINOPHILS % (AUTO) 0.3 %; HGB - HEMOGLOBIN 11.3 g/dL (12.0-16.0); LYMPHOCYTES # (AUTO) 2.5 10^3/uL (1.5-3.5); MEAN CORPUSCULAR HEMOGLOBIN 31.5 pg (27.0-31.0); MEAN CORPUSCULAR VOLUME 92.9 fL (81.0-99.0); MONOCYTES # (AUTO) 0.6 10^3/uL (0.0-1.0); MONOCYTES % (AUTO) 4.4 %; NEUTROPHILS # (AUTO) 10.1 10^3/uL (1.5-6.6); NEUTROPHILS % (AUTO) 75.6 %; PLT - PLATELET COUNT 542 10^3/uL (130-450); RED CELL DISTRIBUTION WIDTH 12.8 % (12.0-15.0); WHITE BLOOD COUNT 13.4 x10^3/uL (4.8-10.8)
[2018-01-11] MEDS ORDERED: ONDANSETRON 4 MG/2 ML VIAL IVP STA (12:48)
[2018-01-11] MEDS ORDERED: LIDOCAINE VISCOUS 2% 15 ML UDC MM STA (12:49)
[2018-01-11] MEDS ORDERED: MAG HYDROX/AL HYDROX/SIMETH 30 ML UDC PO STA (12:49)
[2018-01-11] MEDS ORDERED: HYDROmorphone 2 MG/ML VIAL IVP STA (12:49)
[2018-01-11 12:53] LABS: ALBUMIN 2.4 g/dL (3.2-5.5); ALBUMIN/GLOBULIN RATIO 0.5 (1.0-2.2); ALKALINE PHOSPHATASE 130 IU/L (42-121); ALT ALANINE AMINOTRANSFERASE 13 IU/L (10-60); AST ASPARTATE AMINOTRANSFERASE 18 IU/L (10-42); BILIRUBIN,TOTAL 0.4 mg/dL (0.2-1.0); BUN - BLOOD UREA NITROGEN 8 mg/dL (6-20); CALCIUM 8.1 mg/dL (8.5-10.3); CARBON DIOXIDE - CO2 26 mmol/L (21-32); CHLORIDE 95 mmol/L (101-111); CREATININE 0.7 mg/dL (0.4-1.0); GFR - MDRD 89 (>89); GLUCOSE 197 mg/dL (70-100); LIPASE 20 U/L (22-51); MAGNESIUM 1.2 mg/dL (1.7-2.8); SODIUM 131 mmol/L (135-145); TOTAL PROTEIN 7.3 g/dL (6.7-8.2)
[2018-01-11 13:07] LABS: KETONES, SERUM (ACETEST) NEGATIVE (NEGATIVE)
[2018-01-11 14:48] LABS: MUDS CUTOFF CONCENTRATIONS CUTOFF CONC BELOW:
[2018-01-11 14:51] LABS: BILIRUBIN,URINE NEGATIVE (NEGATIVE); GLUCOSE, URINE (UA) 100 mg/dL (NEGATIVE); KETONES,URINE (UA) NEGATIVE (NEGATIVE); LEUKOCYTE ESTERASE, URINE NEGATIVE (NEGATIVE); NITRITE,URINE NEGATIVE (NEGATIVE); OCCULT BLOOD,URINE NEGATIVE (NEGATIVE); PH,URINE 6.5 PH (5.0-7.5); PROTEIN,URINE NEGATIVE (NEGATIVE); UROBILINOGEN,URINE 0.2 (NORMAL) E.U./dL (NORMAL)
[2018-01-11 14:52] LABS: CLARITY,URINE CLEAR (CLEAR)
[2018-01-11 15:00] LABS: AMPHETAMINE SCREEN,URINE NEGATIVE (NEGATIVE); BENZODIAZEPINES SCREEN, URINE NEGATIVE (NEGATIVE); COCAINE SCREEN URINE NEGATIVE (NEGATIVE); METHADONE SCREEN, URINE NEGATIVE (NEGATIVE); METHAMPHETAMINES SCREEN, URINE NEGATIVE (NEGATIVE); OPIATE SCREEN, URINE POSITIVE (NEGATIVE); OXYCODONE SCREEN, URINE NEGATIVE (NEGATIVE); PROPOXYPHENE SCREEN, URINE NEGATIVE (NEGATIVE); TRICYCLIC ANTIDEPRESSANT,URINE NEGATIVE (NEGATIVE)
[2018-01-11] MEDS ORDERED: HYDROmorphone 1 MG/ML CARPUJECT IVP STA (15:23)
--- NOTE | 2018-01-11 15:50 | Ultrasound Report ---
Procedure Date: 01/11/2018 Accession Number: [id number] / [id number] Procedure: US - Abdomen Limited CPT Code: FULL RESULT: EXAM: ABDOMEN ULTRASOUND LIMITED, RUQ EXAM DATE: 01/11/2018 03:08 PM. CLINICAL HISTORY: Persistent RUQ/upper abd pain for a week. COMPARISON: 12/04/2017. TECHNIQUE: Real-time scanning was performed with static images obtained. FINDINGS: Liver: Normal in size with coarse echotexture. 17.7 cm. 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 Gallbladder: Layering gallstones. No gallbladder wall thickening. There is trace pericholecystic fluid. Reportedly negative sonographic Ward's sign. Biliary System: CBD measures 4 mm. No intrahepatic or extrahepatic ductal dilatation. Other: Right kidney is unremarkable without hydronephrosis. 4.4 x 3.7 x 4.4 cm hypoechoic nodule in the region of the pancreatic tail correlating with the splenule seen on prior CT. IMPRESSION: 1. Cholelithiasis with trace pericholecystic fluid. Negative sonographic Ward sign. 2. 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 Coarse hepatic echotexture. RADIA
[2018-01-11 16:10] VITALS: BP 134/81
== END 2018-01-11 16:09 | disposition home or self-care (01) ==
LOC: EDBD → EDUNIT# → ED 11:52
DX: K80.20 Calculus of gallbladder without cholecystitis without obstruction (principal); R10.10 Upper abdominal pain, unspecified; K29.00 Acute gastritis without bleeding; Z79.899 Other long term (current) drug therapy
CPT/HCPCS: 36415; 76705; 80053; 80306; 80320; 81003; 82009; 82803; 83690; 83735; 85025; 96361; 96365; 96375; 96376; 99283; A9270; J1170; J3411; J7040; 81001; 87086

== ENCOUNTER 2018-02-11 11:03 | Outpatient (CLI) | payer MEDICAID ==
[2018-02-11 19:03] LABS: HB2 TOTAL 11.4 g/dL; HEMOGLOBIN A1C 1.44 g/dL; HEMOGLOBIN A1C % 13.7 % (4.6-6.2)
== END 2018-02-11 11:04 | disposition home or self-care (01) ==
LOC: LAB.N 11:03
PROVIDERS: ATTEND Nurse Practitioner Family
DX: E11.40 Type 2 diabetes mellitus with diabetic neuropathy, unspecified (principal)
CPT/HCPCS: 36415; 83036

== ENCOUNTER 2018-06-05 11:45 | Outpatient (CLI) | payer MEDICAID | END 2018-06-05 11:46 | disposition critical access hospital (66) | LOC: EMS 11:45 | PROVIDERS: ATTEND Surgery | DX: R41.0 Disorientation, unspecified (principal); R73.09 Other abnormal glucose | CPT/HCPCS: A0425; A0427; A0999 ==

== ENCOUNTER 2018-06-05 12:06 | Observation (INO) | payer MEDICAID ==
[2018-06-05] MEDS ORDERED: SODIUM CHLORIDE 0.9% 1,000 ML IV ONE ×2 (12:48)
[2018-06-05] MEDS ORDERED: DEXTROSE 50% ABBOJECT 25 GM/50 ML SYRINGE IVP STA (12:49)
[2018-06-05] MEDS ORDERED: DEXTROSE 50% ABBOJECT 25 GM/50 ML SYRINGE ONE (12:52)
--- NOTE | 2018-06-05 12:54 | ED Physician Documentation ---
History of Present Illness - Stated complaint Stated Complaint: AMS - Chief complaint Chief Complaint: General - History obtained from History obtained from: Patient, EMS - History of Present Illness Timing: Today Pain level max: 0 Pain level now: 0 Improved by: Glucose Worsened by: Nothing - Additonal information Additional information: Patient is a 52-year-old female, diabetic who presents to the emergency department with altered mental status this morning. Last known normal was last night. Blood sugar read low on the glucometer with EMS. She was given D50, mental status improved and brought to the emergency department. She states she took her insulin last night. Did not eat this morning. Review of Systems Ten Systems: 10 systems reviewed and negative Constitutional: denies: Fever, Chills Ears: denies: Ear pain Nose: denies: Rhinorrhea / runny nose, Congestion Cardiac: denies: Chest pain / pressure Respiratory: denies: Cough GI: denies: Abdominal Pain, Nausea, Vomiting, Diarrhea Skin: denies: Rash Musculoskeletal: denies: Neck pain, Back pain Neurologic: denies: Headache PD PAST MEDICAL HISTORY - Past Medical History Cardiovascular: Hypertension, High cholesterol Respiratory: Asthma Neuro: None Endocrine/Autoimmune: Type 2 diabetes, Other GI: GERD, Ulcers, Pancreatitis, Cirrhosis : None HEENT: Other Psych: Depression Musculoskeletal: Gout Derm: Other - Past Surgical History Past Surgical History: Yes General: Splenectomy Ortho: Hip replacement, Rotator cuff repair, Other - Present Medications Home Medications: Ambulatory Orders Medication Instructions Recorded Confirmed Allopurinol 100 mg PO DAILY 10/18/16 06/05/18 Atorvastatin [Lipitor] 10 mg PO DAILY 10/18/16 06/05/18 Omeprazole 20 mg PO QDAC 10/18/16 06/05/18 metFORMIN [Glucophage] 1,000 mg PO BID 10/18/16 06/05/18 Insulin Glargine,Hum.rec.anlog 26 unit SQ QPM 07/30/17 06/05/18 [Basaglhollie Collazo U-100] Gabapentin 300 mg PO TID 08/07/17 06/05/18 hydrOXYzine HCl [Hydroxyzine HCl] 50 mg PO Q6H PRN 12/29/17 06/05/18 Mv,Ca,Min/Folic Acid/Vit K1 1 each PO DAILY 12/30/17 06/05/18 [One-A-Day Women's 50 Plus Tab] Bupropion HCl [Bupropion Xl] 300 mg PO DAILY 06/05/18 06/05/18 Losartan Potassium [Cozaar] 100 mg PO DAILY 06/05/18 06/05/18 Ondansetron HCl [Zofran] 4 mg PO Q8H PRN 06/05/18 06/05/18 - Allergies Allergies/Adverse Reactions: Allergies Allergy/AdvReac Type Severity Reaction Status Date / Time morphine Allergy unknown Verified 06/05/18 12:15 - Social History Does the pt smoke?: Yes Smoking Status: Current every day smoker Does the pt drink ETOH?: Yes ETOH Use: Beer Does the pt have substance abuse?: Yes Substance Use and Type: Marijuana - Immunizations Immunizations are current?: Yes Immunizations: TDAP >10years/unknown - POLST Patient has POLST: No POLST Status: Full Code PD ED PE NORMAL - Vitals Vital signs reviewed: Yes - General General: Alert and oriented X 3, No acute distress - HEENT HEENT: PERRL, Moist mucous membranes - Neck Neck: Supple, no meningeal sign - Cardiac Cardiac: RRR, Strong equal pulses - Respiratory Respiratory: No respiratory distress, Clear bilaterally - Abdomen Abdomen: Soft, Non tender, Non distended - Back Back: No spinal TTP - Derm Derm: Warm and dry - Extremities Extremities: No edema - Neuro Neuro: Alert and oriented X 3 Results - Vitals Vitals: Vital Signs - 24 hr 06/05/18 06/05/18 06/05/18 12:09 13:00 14:32 Temperature 36.2 C L Heart Rate 73 63 62 Respiratory 20 14 12 Rate Blood Pressure 160/98 H 141/95 H O2 Saturation 99 94 99 06/05/18 15:00 Temperature Heart Rate 68 Respiratory 14 Rate Blood Pressure 155/93 H O2 Saturation 98 Oxygen O2 Source Room air - Labs Labs: Laboratory Tests 06/05/18 06/05/18 12:50 12:50 WBC 10.3 RBC 4.02 L Hgb 13.0 Hct 37.5 MCV 93.3 MCH 32.3 H MCHC 34.6 RDW 14.8 Plt Count 408 MPV 9.8 Neut # (Auto) 6.7 H Lymph # (Auto) 2.5 [place] # (Auto) 0.9 Eos # (Auto) 0.0 Baso # (Auto) 0.1 Absolute Nucleated RBC 0.00 Nucleated RBC % 0.0 Manual Slide Review Indicated WBC Morphology NORMAL APPEARANCE Platelet Estimate NORMAL (130-450,000) Platelet Morphology RARE GIANT PLATELETS RBC Morph Micro Appear NORMAL APPEARANCE Sodium 136 Potassium 2.8 L Chloride 103 Carbon Dioxide 26 Anion Gap 7.0 BUN 12 Creatinine 0.6 Estimated GFR (MDRD) 106 Glucose 34 L* Calcium 8.2 L Total Bilirubin 1.8 H AST 55 H ALT 41 Alkaline Phosphatase 246 H Total Creatine Kinase 258 Total Protein 8.1 Albumin 3.4 Globulin 4.7 H Albumin/Globulin Ratio 0.7 L Lipase 21 L PD MEDICAL DECISION MAKING - ED course Complexity details: reviewed results, re-evaluated patient, considered differential, d/w patient, d/w family ED course: Patient is a 52-year-old female with diabetes who is on long-acting insulin, found to be hypoglycemic this morning. Given several amps of D50 as well as eating several sandwiches in the emergency department, continued to be hypogly cemic. Therefore was placed on a D5 drip and will place in observation with the hospitalist. Potassium also replaced. Discussed the case with the hospitalist, Dr. Dial who accepts This document was made in part using voice recognition software. While efforts are made to proofread this document, sound alike and grammatical errors may occur. Departure - Departure Disposition: ED Place in Observation Clinical Impression: Hypoglycemia, Hypokalemia Condition: Stable Discharge Date/Time: 06/05/18 16:15
[2018-06-05 13:07] LABS: BASOPHILS # (AUTO) 0.1 10^3/uL (0.0-0.1); BASOPHILS % (AUTO) 0.8 %; EOSINOPHILS % (AUTO) 0.4 %; LYMPHOCYTES # (AUTO) 2.5 10^3/uL (1.5-3.5); LYMPHOCYTES % (AUTO) 24.1 %; MEAN CORPUSCULAR HEMOGLOBIN 32.3 pg (27.0-31.0); MEAN CORPUSCULAR HGB CONC 34.6 g/dL (32.0-36.0); MEAN CORPUSCULAR VOLUME 93.3 fL (81.0-99.0); MEAN PLATELET VOLUME 9.8 fL (7.9-10.8); MONOCYTES # (AUTO) 0.9 10^3/uL (0.0-1.0); MONOCYTES % (AUTO) 9.1 %; NEUTROPHILS # (AUTO) 6.7 10^3/uL (1.5-6.6); NEUTROPHILS % (AUTO) 65.6 %; PLT - PLATELET COUNT 408 10^3/uL (130-450); RED BLOOD COUNT 4.02 10^6/uL (4.20-5.40); RED CELL DISTRIBUTION WIDTH 14.8 % (12.0-15.0); WHITE BLOOD COUNT 10.3 x10^3/uL (4.8-10.8)
[2018-06-05 13:26] LABS: ALBUMIN 3.4 g/dL (3.2-5.5); ALBUMIN/GLOBULIN RATIO 0.7 (1.0-2.2); BILIRUBIN,TOTAL 1.8 mg/dL (0.2-1.0); CALCIUM 8.2 mg/dL (8.5-10.3); CREATININE 0.6 mg/dL (0.4-1.0); TOTAL PROTEIN 8.1 g/dL (6.7-8.2)
[2018-06-05 13:36] LABS: PLATELET ESTIMATE, MANUAL NORMAL (130-450,000) (NORMAL); PLATELET MORPHOLOGY RARE GIANT PLATELETS (NORMAL)
[2018-06-05 13:37] LABS: RBC MORPHOLOGY (MULTIPLE) NORMAL APPEARANCE (NORMAL)
[2018-06-05] MEDS ORDERED: D5.45NS W/20 MEQ KCL 1,000 ML IV STA (15:08)
[2018-06-05] MEDS ORDERED: SODIUM CHLORIDE FLUSH 0.9% 10 ML SYRINGE IVP PRN (15:33)
[2018-06-05] MEDS ORDERED: hydrOXYzine PAMOATE 25 MG CAPSULE PO PRN (15:38)
[2018-06-05 15:44] LABS: BILIRUBIN,URINE NEGATIVE (NEGATIVE); GLUCOSE, URINE (UA) NEGATIVE (NEGATIVE); KETONES,URINE (UA) NEGATIVE (NEGATIVE); LEUKOCYTE ESTERASE, URINE NEGATIVE (NEGATIVE); NITRITE,URINE NEGATIVE (NEGATIVE); OCCULT BLOOD,URINE SMALL (NEGATIVE); PROTEIN,URINE NEGATIVE (NEGATIVE); UROBILINOGEN,URINE 0.2 (NORMAL) E.U./dL (NORMAL)
[2018-06-05 15:45] LABS: CLARITY,URINE CLEAR (CLEAR)
[2018-06-05 15:54] LABS: MUDS CUTOFF CONCENTRATIONS CUTOFF CONC BELOW:
[2018-06-05 15:59] LABS: BACTERIA,URINE Rare /HPF (None Seen); RBC,URINE 0-5 /HPF (0-5); SQUAMOUS EPITHELIAL CELL,UR FEW Squamous (<= Few)
[2018-06-05 16:10] LABS: AMPHETAMINE SCREEN,URINE POSITIVE (NEGATIVE); BENZODIAZEPINES SCREEN, URINE NEGATIVE (NEGATIVE); COCAINE SCREEN URINE NEGATIVE (NEGATIVE); METHADONE SCREEN, URINE NEGATIVE (NEGATIVE); METHAMPHETAMINES SCREEN, URINE POSITIVE (NEGATIVE); OPIATE SCREEN, URINE POSITIVE (NEGATIVE); OXYCODONE SCREEN, URINE NEGATIVE (NEGATIVE); PROPOXYPHENE SCREEN, URINE NEGATIVE (NEGATIVE); TRICYCLIC ANTIDEPRESSANT,URINE NEGATIVE (NEGATIVE)
--- NOTE | 2018-06-05 16:35 | HISTORY & PHYSICAL EXAMINATION ---
Chief Complaint - Chief Complaint Chief Complaint: hypothermia, non-responsive, found by roommate. History of Present Illness - Admitted From Admitted From:: ED - History Obtained From Records Reviewed: yes History obtained from: Chart review, patient Exam Limitations: none - History of Present Illness HPI Comment/Other: Farrah Anguiano is a 52-year old female with a past medical history of homelessness, chronic abdominal pain, lung mass, pulmonary nodule, portal vein DVT, splenic infarction, status post partial splenectomy, alcohol dependence, diabetes mellitus type 2-insulin dependent, hyperlipidemia, GERD, vocal cord polyp, depression, tobacco dependence, heroin use via inhalation, meth use via inhalation, COPD, recurrent pneumonia, cirrhosis, chronic pancreatitis, hypertension, gout,and DJD. The patient was brought in by EMS with very low blood sugars in the 30 range. The patient believes that her roommate, Yana made the call to 911 after not being able to wake her up. The patient states that she remembers eating a biscuit last night and feeling like she may be coming down with the flu all of yesterday. She complains of BLE pain that becomes worse with walking, headache, fatigue, nausea, and fever with chills at home. On exam she denies chest pain, vomiting, diarrhea, bleeding, a rash, recent falls, recent travel, or a productive cough. She states that she has run out of most of her prescriptions at home with the exception of her insulin and metformin, which she took last night before lying down. Vital signs show hypertension with a blood pressure of 160/98 with no other abnormalities. She was reported as being hypothermic, but I have no data supporting this. She has a normal CBC, but very abnormal electrolytes with a sodium of 2.8, a blood sugar of 34, bilirubin of 1.8, AST of 55, alk phos of 246, and no other abnormalities. There was no imaging done. The patient will be placed in observation to evaluate for the cause of these abnormalities and she is positives on a iMove creen for meth, amphetimines, opiates, and marijuana, but denies recent use. 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 Living arrangement: At home Living Situation: With friend(s) (Yana, roommate. Denies homelessness at this time.) Social History Notes: The patient states that she is originally from [facility] and moved would be [place] 15 years ago to be closer to her sister and father. She currently lives at [facility] in [place] and is sharing a room with a friend. She is her 12 years ago. She has never had any children. The patient does admit to occasional methamphetamine and heroin use. She states that she starts to methamphetamine and smokes the heroin. She also states that she smokes marijuana daily. The patient admits to half a pack a day of tobacco use and has been smoking for over 35 years. She states that she was previously a heavy drinker but has cut down to just few beers a day. According to the patient's friend the patient has been using heroin daily for the last 4-5 days. She wishes to be a FULL code. - Substance History Use: Uses substance without health or social issues: Tobacco, Amphetamine, Cannabis Use Issues: Anxiety Disorder Abuse: Recurrent use of substance despite neg consequences: Amphetamine, Cannabis Abuse Issues: Anxiety Disorder Dependence: Experiences withdrawal or developed tolerances: Tobacco, Alcohol, Amphetamine, Cannabis Dependence Issues: Anxiety Disorder Tobacco Details: Cigarettes - POLST Patient has POLST: No POLST Status: Full Code Meds/Allgy - Home Medications Home Medications: Ambulatory Orders Medication Instructions Recorded Confirmed Allopurinol 100 mg PO DAILY 10/18/16 06/05/18 Atorvastatin [Lipitor] 10 mg PO DAILY 10/18/16 06/05/18 Omeprazole 20 mg PO QDAC 10/18/16 06/05/18 metFORMIN [Glucophage] 1,000 mg PO BID 10/18/16 06/05/18 Insulin Glargine,Hum.rec.anlog 26 unit SQ QPM 07/30/17 06/05/18 [Basaglar Kwikpen U-100] Gabapentin 300 mg PO TID 08/07/17 06/05/18 hydrOXYzine HCl [Hydroxyzine HCl] 50 mg PO Q6H PRN 12/29/17 06/05/18 Mv,Ca,Min/Folic Acid/Vit K1 1 each PO DAILY 12/30/17 06/05/18 [One-A-Day Women's 50 Plus Tab] Bupropion HCl [Bupropion Xl] 300 mg PO DAILY 06/05/18 06/05/18 Losartan Potassium [Cozaar] 100 mg PO DAILY 06/05/18 06/05/18 Ondansetron HCl [Zofran] 4 mg PO Q8H PRN 06/05/18 06/05/18 - Allergies Allergies/Adverse Reactions: Allergies Allergy/AdvReac Type Severity Reaction Status Date / Time morphine Allergy unknown Verified 06/05/18 12:15 Review of Systems - Constitutional Constitutional: reports: Fatigue, Fever, Chills, Weakness, Poor appetite - Eyes Eyes: reports: Spots in vision - Ears, Nose & Throat Ears, Nose & Throat: reports: Nasal congestion, Postnasal drainage, Dental decay , Dental pain - Cardiovascular Cariovascular: reports: Lightheadedness, Decr. exercise tolerance - Respiratory Respiratory: reports: Cough, SOB with exertion - Gastrointestinal Gastrointestinal: reports: Nausea, Reflux/heartburn - Genitourinary Genitourinary: reports: Frequency, Nocturia - Musculoskeletal Musculoskeletal: reports: Back pain, Muscle aches - Integumentary Integumentary: reports: Dryness - Neurological Neurological: reports: General weakness, Headache, Pre-existing deficit - Psychiatric Psychiatric: reports: Depression, Anxiety - Endocrine Endocrine: reports: Intolerance to cold - All Other Systems All Other Systems: reports: Reviewed and negative Prior Level of Functionality: lives independently with roommate, does not use a cane. Denies recent falls. A history of homelessness. Exam - Vital Signs Reviewed Vital Signs: Yes Vital Signs: Vital Signs x48h Temp Pulse Pulse Resp BP BP Pulse Ox 06/05/18 16:00 36.5 C 82 18 163/93 H 06/05/18 14:32 36.2 C L 62 12 141/95 H 99 06/05/18 12:09 73 20 160/98 H 99 - Physical Exam General Appearance: positive: No acute distress, Alert Eyes Bilateral: positive: PERRL ENT: positive: Pharynx nml, No signs of dehydration Neck: positive: Thyroid nml, No JVD, Trachea midline Respiratory: positive: Chest non-tender, No respiratory distress, Other (diminshed) Cardiovascular: positive: Regular rate & rhythm, No gallop, Systolic murmur Peripheral Pulses: positive: 2+ Abdomen: positive: Non-tender, Nml bowel sounds Back: positive: Nml inspection Skin: positive: No rash, Warm, Dry, Other (bronze) Extremities: positive: Non-tender, Full ROM, No pedal edema, Calf tenderness (BLE tenderness related to peripheral neuropathy) Neurologic/Psychiatric: positive: Oriented x3, CN's nml (2-12), Motor nml, Sensation nml, Weakness, Depressed mood/affect Reflexes: Bicep (R): 3+, Bicep (L): 3+ Sepsis Event Note (H) - Evaluation Current Stage of Sepsis: Ruled out Conclusion/Plan - Problem List (1) Hypoglycemia Conclusion/Plan: The patient states that she took both her insulin and metformin last night before bed, but does not provide a reliable compliance history of taking her meds at a scheduled time. She admits to running out of her other prescribed meds, but not getting them refilled, leading me to believe the same of her insulin. Plan: Continue D5 IV continuously. Frequent blood glucose monitoring. (2) Hypokalemia Conclusion/Plan: The patient was found to have a low K+ of just 2.8, and this may be due to lack of oral intake. She has been given 2 bolus replacements. Plan: Continue to monitor, encourage PO intake, replace as needed. Re-check BMP at 1999. (3) Hypothermia Conclusion/Plan: The patient is reported to have been hypothermic, but there is not sufficient documentation once getting to the ED to support this. She has since been normal with her charted temps. Plan: Continue to monitor VS. Qualifiers: Encounter type: initial encounter Qualified Code(s): T68.XXXA - Hypothermia, initial encounter (4) COPD (chronic obstructive pulmonary disease) Conclusion/Plan: The patient has been a life long smoker, and also smokes meth, marijuana, and heroin. RT reports that she is prescribed both Combivent and ventolin at home, so I have added duo-nebs as needed. Plan: Continue to monitor respiratory status. (5) Hypertension Conclusion/Plan: The patient has a history of this and was previously prescribed losartan, which is now on hold due to non-compliance at home. Plan: Consider restarting if blood pressure is elevated for home use. Qualifiers: Hypertension type: essential hypertension Qualified Code(s): I10 - Essential (primary) hypertension (6) Polysubstance abuse Conclusion/Plan: After reviewing records from [facility], and PCP, the patient has a known history of meth, heroin, and alcohol abuse. She is + for meth, amphetamines, opiates, and marijuana on admission. Plan: Encourage cessation. (7) Tobacco dependence Conclusion/Plan: The patient admits to smoking since the age of 14, at least 1/2 PPD since that time. I will add a daily nicotine patch at 41 mg topical. Plan: Encourage cessation, offer daily nicotine patch. - Lab Results Lab results reviewed: Yes Fish Bones: 06/05/18 12:50 06/05/18 12:50 - EKG Results EKG Interpreted Independently: Yes EKG Comparison: No prior EKG (SR without ST elevated.) Core Measures - Anticipated LOS I expect patient to be DC'd or transferred within 96 hours.: Yes - DVT/VTE - Prophylaxis VTE/DVT Device ordered at admit?: Yes VTE/DVT Prophylaxis med ordered at admit?: Yes - Stroke - Rehab Assessment Rehab services assessment to be ordered?: No Not Ordered - Medical Reason: Contraindicated - AMI - Statin at Admit Aspirin Prescribed on Admit: Yes
[2018-06-05] MEDS: ACETAMINOPHEN 325 MG TABLET PO PRN (16:39)
[2018-06-05] MEDS: D5NS W/20 MEQ KCL 1,000 ML IV SCH (16:43)
[2018-06-05] MEDS: SODIUM CHLORIDE FLUSH 0.9% 10 ML SYRINGE IVP SCH (16:45)
[2018-06-05] MEDS ORDERED: ONDANSETRON ODT 4 MG TABLET TL PRN (17:41)
[2018-06-05] MEDS ORDERED: IPRATROPIUM/ALBUTEROL 3 ML NEB INH PRN (17:43)
[2018-06-05] MEDS: INSULIN ASPART 300 UNIT/3 ML PEN SUBQ SCH ×2 (17:49→20:48)
[2018-06-05] MEDS: NICOTINE 14 MG PATCH TOP SCH (18:56)
[2018-06-05] MEDS: HYDROmorphone 1 MG/ML CARPUJECT IVP PRN ×2 (18:57→21:23)
[2018-06-05] MEDS ORDERED: GABAPENTIN 100 MG CAPSULE PO SCH (22:00)
[2018-06-06] MEDS ORDERED: DEXTROSE GEL 37.5 GM TUBE PO ONE (01:44)
[2018-06-06] MEDS: DEXTROSE GEL 37.5 GM TUBE PO ONE ×2 (01:45→01:50)
[2018-06-06] MEDS: D5NS W/20 MEQ KCL 1,000 ML IV SCH ×3 (01:51→13:30)
[2018-06-06] MEDS: ACETAMINOPHEN 325 MG TABLET PO PRN (01:52)
[2018-06-06] MEDS: SODIUM CHLORIDE FLUSH 0.9% 10 ML SYRINGE IVP SCH ×3 (01:56→15:49)
[2018-06-06] MEDS: HYDROmorphone 1 MG/ML CARPUJECT IVP PRN ×6 (02:10→22:00)
[2018-06-06 05:47] LABS: BASOPHILS % (AUTO) 0.3 %; EOSINOPHILS % (AUTO) 0.2 %; HGB - HEMOGLOBIN 12.6 g/dL (12.0-16.0); LYMPHOCYTES % (AUTO) 10.5 %; MEAN CORPUSCULAR HEMOGLOBIN 31.8 pg (27.0-31.0); MEAN CORPUSCULAR HGB CONC 33.3 g/dL (32.0-36.0); MEAN CORPUSCULAR VOLUME 95.5 fL (81.0-99.0); MEAN PLATELET VOLUME 9.6 fL (7.9-10.8); MONOCYTES % (AUTO) 4.9 %; NEUTROPHILS % (AUTO) 84.1 %; PLT - PLATELET COUNT 362 10^3/uL (130-450); RED BLOOD COUNT 3.96 10^6/uL (4.20-5.40); RED CELL DISTRIBUTION WIDTH 14.8 % (12.0-15.0); WHITE BLOOD COUNT 25.3 x10^3/uL (4.8-10.8)
[2018-06-06 05:55] LABS: ABNORMAL LYMPHS % (MANUAL) 0 %
[2018-06-06 06:03] LABS: ALBUMIN 2.6 g/dL (3.2-5.5); ALBUMIN/GLOBULIN RATIO 0.7 (1.0-2.2); BILIRUBIN,TOTAL 1.5 mg/dL (0.2-1.0); CALCIUM 7.7 mg/dL (8.5-10.3); CREATININE 0.6 mg/dL (0.4-1.0); MAGNESIUM 1.1 mg/dL (1.7-2.8); PHOSPHORUS 2.8 mg/dL (2.5-4.6); TOTAL PROTEIN 6.3 g/dL (6.7-8.2)
[2018-06-06] MEDS: PANTOPRAZOLE 40 MG TABLET PO SCH (06:14)
[2018-06-06 06:22] LABS: BAND NEUTROPHILS % (MANUAL) 12 %; DIFFERENTIAL COMMENT MANUAL DIFFERENTIAL; LYMPHOCYTES % (MANUAL) 12 %; NEUTROPHILS # (MANUAL) 21.3 10^3/uL (1.5-6.6); NEUTROPHILS % (MANUAL) 72 %; PLATELET ESTIMATE, MANUAL NORMAL (130-450,000) (NORMAL); RBC MORPHOLOGY (MULTIPLE) NORMAL APPEARANCE (NORMAL)
[2018-06-06] MEDS: INSULIN ASPART 300 UNIT/3 ML PEN SUBQ SCH ×4 (07:40→20:48)
[2018-06-06] MEDS: ALLOPURINOL 100 MG TABLET PO SCH (08:39)
[2018-06-06] MEDS: buPROPion XL 150 MG TABLET PO SCH (08:39)
[2018-06-06] MEDS: MAGNESIUM OXIDE 400 MG TABLET PO SCH ×2 (08:39→17:04)
[2018-06-06] MEDS: ATORVASTATIN 10 MG TABLET PO SCH (08:39)
[2018-06-06] MEDS ORDERED: LOSARTAN 50 MG TABLET PO SCH (09:00)
--- NOTE | 2018-06-06 15:07 | PROVIDER PROGRESS NOTE ---
Subjective - Prog Note Date Prog Note Date: 06/06/18 Prog Note Time: 15:06 - Subjective Pt reports feeling: Improved Subjective: Farrah complains of ongoing low blood sugars and continues to have her chronic pain in her low back and BLEs of which she is taking IV dilaudid for. She denies shortness of breath, nausea, vomiting, a rash, or chest pain. Current Medications - Current Medications Current Medications: Active Medications Acetaminophen (Tylenol) 650 mg PO Q4HR PRN PRN Reason: Pain or Fever > 38C (100.4F) Last Admin: 06/06/18 01:52 Dose: 650 mg Albuterol/Ipratropium (Duoneb) 3 ml INH Q4HR PRN PRN Reason: Wheezing Allopurinol (Zyloprim) 100 mg PO DAILY [facility] Last Admin: 06/06/18 08:39 Dose: 100 mg Atorvastatin Calcium (Lipitor) 10 mg PO DAILY [facility] Last Admin: 06/06/18 08:39 Dose: 10 mg Bupropion HCl (Wellbutrin Xl) 300 mg PO DAILY [facility] Last Admin: 06/06/18 08:39 Dose: 300 mg Enoxaparin Sodium (Lovenox) 30 mg SUBQ DAILY [facility] Gabapentin (Neurontin) 100 mg PO TID [facility] Hydromorphone HCl (Dilaudid Inj Carp) 1 mg IVP Q6HR PRN PRN Reason: PAIN Insulin Aspart (Novolog) 1 - 5 unit SUBQ 0800,1200,1700,2100 [facility]; Protocol Last Admin: 06/06/18 11:59 Dose: 3 unit Lisinopril (Zestril) 10 mg PO DAILY [facility] Magnesium Oxide (Mag Ox) 800 mg PO BIDWM [facility] Last Admin: 06/06/18 08:39 Dose: 800 mg Nicotine (Nicoderm) 1 patch TOP Q24H [facility] Last Admin: 06/05/18 18:56 Dose: 1 patch Ondansetron HCl (Zofran Odt) 4 mg TL Q4H PRN PRN Reason: Nausea / Vomiting Oxycodone HCl (Roxicodone) 5 mg PO Q4HR PRN PRN Reason: PAIN Pantoprazole Sodium (Protonix) 40 mg PO QDAC [facility] Last Admin: 06/06/18 06:14 Dose: 40 mg Sodium Chloride (Normal Saline Flush 0.9%) 10 ml IVP PRN PRN PRN Reason: NEEDED PER PROVIDER ORDERS Sodium Chloride (Normal Saline Flush 0.9%) 10 ml IVP 0100,0900,1700 [facility] Last Admin: 06/06/18 11:59 Dose: 10 ml Allopurinol 100 mg PO DAILY 10/18/16 Atorvastatin [Lipitor] 10 mg PO DAILY 10/18/16 Omeprazole 20 mg PO QDAC 10/18/16 metFORMIN [Glucophage] 1,000 mg PO BID 10/18/16 Insulin Glargine,Hum.rec.anlog [Basaglar Kwikpen U-100] 26 unit SQ QPM 07/30/17 Gabapentin 300 mg PO TID 08/07/17 hydrOXYzine HCl [Hydroxyzine HCl] 50 mg PO Q6H PRN 12/29/17 Mv,Ca,Min/Folic Acid/Vit K1 [One-A-Day Women's 50 Plus Tab] 1 each PO DAILY 12/30/17 Bupropion HCl [Bupropion Xl] 300 mg PO DAILY 06/05/18 Losartan Potassium [Cozaar] 100 mg PO DAILY 06/05/18 Ondansetron HCl [Zofran] 4 mg PO Q8H PRN 06/05/18 Objective - Vital Signs/Intake & Output Reviewed Vital Signs: Yes Vital Signs: Vital Signs x48h Temp Pulse Resp BP Pulse Ox 06/06/18 13:41 37 C 80 16 150/84 H 97 06/06/18 07:30 36.7 C 69 18 144/89 H 96 Intake & Output: Intake & Output 06/03/18 06/04/18 06/05/18 06/06/18 23:59 23:59 23:59 23:59 Intake Total 2702 2853.333 Balance 2702 2853.333 - Objective General Appearance: positive: No acute distress, Alert, Anxious Eyes Bilateral: positive: PERRL Eyes: OU Conjunctivae pale ENT: positive: Pharynx nml, No signs of dehydration Neck: positive: Thyroid nml, No JVD Respiratory: positive: Chest non-tender, No respiratory distress, Other (scattered crackles) Cardiovascular: positive: Regular rate & rhythm, Systolic murmur Peripheral Pulses: 1+ Radial (R), 1+ Radial (L) Abdomen: positive: Non-tender, Nml bowel sounds Back: positive: Nml inspection Skin: positive: No rash, Warm, Dry Extremities: positive: Non-tender, No pedal edema, Calf tenderness Neurologic/Psychiatric: positive: Oriented x3, CN's nml (2-12), Motor nml, Sensation nml, Depressed mood/affect Reflexes: Bicep (R): 3+, Bicep (L): 3+ - Lab Results Fish Bones: 06/06/18 05:19 06/06/18 05:19 Other Labs: Lab Results x24hrs 06/06/18 06/06/18 06/05/18 Range/Units 05:19 05:19 15:41 WBC 25.3 H (4.8-10.8) x10^3/uL RBC 3.96 L (4.20-5.40) 10^6/uL Hgb 12.6 (12.0-16.0) g/dL Hct 37.9 (37.0-47.0) % MCV 95.5 (81.0-99.0) fL MCH 31.8 H (27.0-31.0) pg MCHC 33.3 (32.0-36.0) g/dL RDW 14.8 (12.0-15.0) % Plt Count 362 (130-450) 10^3/uL MPV 9.6 (7.9-10.8) fL Neut # (Auto) Not Reportable Lymph # (Auto) Not Reportable Hutchinson # (Auto) Not Reportable Eos # (Auto) Not Reportable Baso # (Auto) Not Reportable Absolute Nucleated RBC Not Reportable Total Counted 100 Band Neuts % (Manual) 12 H (0 - 10) % Abnorm Lymph % (Manual) 0 % Nucleated RBC % Not Reportable Neutrophils # (Manual) 21.3 H (1.5-6.6) 10^3/uL Lymphocytes # (Manual) 3.0 (1.5-3.5) 10^3/uL Monocytes # (Manual) 1.0 (0.0-1.0) 10^3/uL Eosinophils # (Manual) 0.0 (0-0.7) 10^3/uL Basophils # (Manual) 0.0 (0-0.1) 10^3/uL Differential Comment MANUAL DIFFERENTIAL Platelet Estimate NORMAL (130-450,000) (NORMAL) RBC Morph Micro Appear NORMAL APPEARANCE (NORMAL) Sodium 135 (135-145) mmol/L Potassium 3.7 (3.5-5.0) mmol/L Chloride 105 (101-111) mmol/L Carbon Dioxide 24 (21-32) mmol/L Anion Gap 6.0 (6-13) BUN 8 (6-20) mg/dL Creatinine 0.6 (0.4-1.0) mg/dL Estimated GFR (MDRD) 106 (>89) Glucose 140 H (70-100) mg/dL Calcium 7.7 L (8.5-10.3) mg/dL Phosphorus 2.8 (2.5-4.6) mg/dL Magnesium 1.1 L (1.7-2.8) mg/dL Total Bilirubin 1.5 H (0.2-1.0) mg/dL AST 95 H (10-42) IU/L ALT 37 (10-60) IU/L Alkaline Phosphatase 189 H (42-121) IU/L Total Protein 6.3 L (6.7-8.2) g/dL Albumin 2.6 L (3.2-5.5) g/dL Globulin 3.7 (2.1-4.2) g/dL Albumin/Globulin Ratio 0.7 L (1.0-2.2) Urine Color YELLOW Urine Clarity CLEAR (CLEAR) Urine pH 7.0 (5.0-7.5) PH Ur Specific Kim 1.010 (1.002-1.030) Urine Protein NEGATIVE (NEGATIVE) mg/dL Urine Glucose (UA) NEGATIVE (NEGATIVE) mg/dL Urine Ketones NEGATIVE (NEGATIVE) mg/dL Urine Occult Blood SMALL H (NEGATIVE) Urine Nitrite NEGATIVE (NEGATIVE) Urine Bilirubin NEGATIVE (NEGATIVE) Urine Urobilinogen 0.2 (NORMAL) (NORMAL) E.U./dL Ur Leukocyte Esterase NEGATIVE (NEGATIVE) Urine RBC 0-5 (0-5) /HPF Urine WBC 0-3 (0-5) /HPF Ur Squamous Epith Cells FEW Squamous (<= Few) Urine Bacteria Rare (None Seen) /HPF Ur Microscopic Review INDICATED Urine Culture Comments NOT INDICATED Urine Opiates Screen (NEGATIVE) Ur Oxycodone Screen (NEGATIVE) Urine Methadone Screen (NEGATIVE) Ur Propoxyphene Screen (NEGATIVE) Ur Barbiturates Screen (NEGATIVE) Ur Tricyclics Screen (NEGATIVE) Ur Phencyclidine Scrn (NEGATIVE) Ur Amphetamine Screen (NEGATIVE) U Methamphetamines Scrn (NEGATIVE) U Benzodiazepines Scrn (NEGATIVE) Urine Cocaine Screen (NEGATIVE) U Cannabinoids Screen (NEGATIVE) 06/05/18 Range/Units 15:35 WBC (4.8-10.8) x10^3/uL RBC (4.20-5.40) 10^6/uL Hgb (12.0-16.0) g/dL Hct (37.0-47.0) % MCV (81.0-99.0) fL MCH (27.0-31.0) pg MCHC (32.0-36.0) g/dL RDW (12.0-15.0) % Plt Count (130-450) 10^3/uL MPV (7.9-10.8) fL Neut # (Auto) Lymph # (Auto) Hutchinson # (Auto) Eos # (Auto) Baso # (Auto) Absolute Nucleated RBC Total Counted Band Neuts % (Manual) (0 - 10) % Abnorm Lymph % (Manual) % Nucleated RBC % Neutrophils # (Manual) (1.5-6.6) 10^3/uL Lymphocytes # (Manual) (1.5-3.5) 10^3/uL Monocytes # (Manual) (0.0-1.0) 10^3/uL Eosinophils # (Manual) (0-0.7) 10^3/uL Basophils # (Manual) (0-0.1) 10^3/uL Differential Comment Platelet Estimate (NORMAL) RBC Morph Micro Appear (NORMAL) Sodium (135-145) mmol/L Potassium (3.5-5.0) mmol/L Chloride (101-111) mmol/L Carbon Dioxide (21-32) mmol/L Anion Gap (6-13) BUN (6-20) mg/dL Creatinine (0.4-1.0) mg/dL Estimated GFR (MDRD) (>89) Glucose (70-100) mg/dL Calcium (8.5-10.3) mg/dL Phosphorus (2.5-4.6) mg/dL Magnesium (1.7-2.8) mg/dL Total Bilirubin (0.2-1.0) mg/dL AST (10-42) IU/L ALT (10-60) IU/L Alkaline Phosphatase (42-121) IU/L Total Protein (6.7-8.2) g/dL Albumin (3.2-5.5) g/dL Globulin (2.1-4.2) g/dL Albumin/Globulin Ratio (1.0-2.2) Urine Color Urine Clarity (CLEAR) Urine pH (5.0-7.5) PH Ur Specific Kim (1.002-1.030) Urine Protein (NEGATIVE) mg/dL Urine Glucose (UA) (NEGATIVE) mg/dL Urine Ketones (NEGATIVE) mg/dL Urine Occult Blood (NEGATIVE) Urine Nitrite (NEGATIVE) Urine Bilirubin (NEGATIVE) Urine Urobilinogen (NORMAL) E.U./dL Ur Leukocyte Esterase (NEGATIVE) Urine RBC (0-5) /HPF Urine WBC (0-5) /HPF Ur Squamous Epith Cells (<= Few) Urine Bacteria (None Seen) /HPF Ur Microscopic Review Urine Culture Comments Urine Opiates Screen POSITIVE H (NEGATIVE) Ur Oxycodone Screen NEGATIVE (NEGATIVE) Urine Methadone Screen NEGATIVE (NEGATIVE) Ur Propoxyphene Screen NEGATIVE (NEGATIVE) Ur Barbiturates Screen NEGATIVE (NEGATIVE) Ur Tricyclics Screen NEGATIVE (NEGATIVE) Ur Phencyclidine Scrn NEGATIVE (NEGATIVE) Ur Amphetamine Screen POSITIVE H (NEGATIVE) U Methamphetamines Scrn POSITIVE H (NEGATIVE) U Benzodiazepines Scrn NEGATIVE (NEGATIVE) Urine Cocaine Screen NEGATIVE (NEGATIVE) U Cannabinoids Screen POSITIVE H (NEGATIVE) ABX Reporting Has patient been on IV antibiotics over the past 48 hours?: No Sepsis Event Note (H) - Evaluation Current Stage of Sepsis: Ruled out Assessment/Plan - Problem List (1) Hypoglycemia Impression: The patient states that she took both her insulin and metformin last night before bed, but does not provide a reliable compliance history of taking her meds at a scheduled time. She admits to running out of her other prescribed meds, but not getting them refilled, leading me to believe the same of her insulin. The length of time Lantus is expected to stay in the body is ~48 hours, so it would be unsafe for the patient to be discharged today. She will not be continued on insulin for discharge, only metformin to prevent further episodes. Plan: Stop fluids. Frequent blood glucose monitoring. (2) Diabetes mellitus type 2 in nonobese Impression: The patient shows a history of poor compliance due to her HgA1c of 10.5%. She was previously on both metformin and Lantus at home, and I suspect that she became influenced with her drug use, and took too much Lantus causing this episode. For her own safety, she should avoid Lantus since metformin is less likely to cause hypoglycemia. (3) Acute neutrophilia Impression: The patient had a normal WBC count of 10 on admission that was up to 25 today, with bands and neutrophils. The most likely cause for this is the stress of her hypoglycemia, hypothermia. She has no evidence of acute infection, has been afebrile and has no new cough. Plan: Daily labs to ensure they are trending down, watch for signs of infection. (4) Hypokalemia Impression: The patient was found to have a low K+ of just 2.8, and this may be due to lack of oral intake. She has been given 2 bolus replacements. Plan: Continue to monitor, encourage PO intake, replace as needed. Re-check BMP at 2000. (5) Hypothermia Impression: The patient is reported to have been hypothermic, but there is not sufficient documentation once getting to the ED to support this. She has since been normal with her charted temps. Plan: Continue to monitor VS. Qualifiers: Encounter type: initial encounter Qualified Code(s): T68.XXXA - Hypothermia, initial encounter (6) COPD (chronic obstructive pulmonary disease) Impression: The patient has been a life long smoker, and also smokes meth, marijuana, and heroin. RT reports that she is prescribed both Combivent and ventolin at home, so I have added duo-nebs as needed. Plan: Continue to monitor respiratory status. (7) Hypertension Impression: The patient has a history of this and was previously prescribed losartan, which is now on hold due to non-compliance at home. I have started her on lisinopril for it's kidney protecting properties. Plan: Continue lisinopril and plan to continue at home. Qualifiers: Hypertension type: essential hypertension Qualified Code(s): I10 - Essential (primary) hypertension (8) Polysubstance abuse Impression: After reviewing records from [facility], and PCP, the patient has a known history of meth, heroin, and alcohol abuse. She was + for meth, amphetamines, opiates, and marijuana on admission. Plan: Encourage cessation. (9) Tobacco dependence Impression: The patient admits to smoking since the age of 14, at least 1/2 PPD since that time. Continue on nicotine patch at 41 mg topical. Plan: Encourage cessation, offer daily nicotine patch.
[2018-06-06] MEDS: LISINOPRIL 20 MG TABLET PO SCH (15:48)
[2018-06-06] MEDS: ENOXAPARIN 30 MG/0.3 ML SYRINGE SUBQ SCH (15:49)
[2018-06-06 16:20] LABS: HB2 TOTAL 12.4 g/dL; HEMOGLOBIN A1C 1.13 g/dL; HEMOGLOBIN A1C % 10.5 % (4.6-6.2)
[2018-06-06] MEDS: NICOTINE 14 MG PATCH TOP SCH (17:04)
[2018-06-06] MEDS: oxyCODONE 5 MG TABLET PO PRN (17:04)
[2018-06-06] MEDS: GABAPENTIN 100 MG CAPSULE PO SCH (22:00)
[2018-06-07] MEDS: oxyCODONE 5 MG TABLET PO PRN ×3 (02:05→12:44)
[2018-06-07] MEDS: SODIUM CHLORIDE FLUSH 0.9% 10 ML SYRINGE IVP SCH ×3 (04:19→08:31)
[2018-06-07] MEDS: HYDROmorphone 1 MG/ML CARPUJECT IVP PRN ×2 (04:30→10:23)
[2018-06-07 06:35] LABS: BASOPHILS # (AUTO) 0.1 10^3/uL (0.0-0.1); BASOPHILS % (AUTO) 0.6 %; EOSINOPHILS # (AUTO) 0.2 10^3/uL (0.0-0.7); EOSINOPHILS % (AUTO) 1.7 %; HGB - HEMOGLOBIN 12.4 g/dL (12.0-16.0); LYMPHOCYTES # (AUTO) 3.5 10^3/uL (1.5-3.5); LYMPHOCYTES % (AUTO) 28.2 %; MEAN CORPUSCULAR HEMOGLOBIN 31.7 pg (27.0-31.0); MEAN CORPUSCULAR VOLUME 96.3 fL (81.0-99.0); MEAN PLATELET VOLUME 9.5 fL (7.9-10.8); MONOCYTES # (AUTO) 0.9 10^3/uL (0.0-1.0); MONOCYTES % (AUTO) 7.1 %; NEUTROPHILS # (AUTO) 7.7 10^3/uL (1.5-6.6); NEUTROPHILS % (AUTO) 62.4 %; PLT - PLATELET COUNT 363 10^3/uL (130-450); RED BLOOD COUNT 3.91 10^6/uL (4.20-5.40); RED CELL DISTRIBUTION WIDTH 15.1 % (12.0-15.0); WHITE BLOOD COUNT 12.4 x10^3/uL (4.8-10.8)
[2018-06-07 06:43] LABS: ALBUMIN 2.5 g/dL (3.2-5.5); ALBUMIN/GLOBULIN RATIO 0.7 (1.0-2.2); BILIRUBIN,TOTAL 1.4 mg/dL (0.2-1.0); CALCIUM 8.1 mg/dL (8.5-10.3); CREATININE 0.8 mg/dL (0.4-1.0); MAGNESIUM 1.3 mg/dL (1.7-2.8)
[2018-06-07] MEDS: GABAPENTIN 100 MG CAPSULE PO SCH (07:09)
[2018-06-07] MEDS: PANTOPRAZOLE 40 MG TABLET PO SCH (07:09)
--- NOTE | 2018-06-07 07:49 | Discharge Plan ---
Discharge Plan Disposition: Home, Self Care Condition: Good Prescriptions: oxyCODONE [Roxicodone] 5 mg PO Q4HR PRN #20 tablet PRN Reason: Pain Allopurinol 100 mg PO DAILY #30 tablet Aspirin [Adult Aspirin Regimen] 81 mg PO DAILY #30 tablet. Atorvastatin Calcium 20 mg PO DAILY #30 tablet Bupropion HCl [Bupropion Xl] 300 mg PO DAILY #60 tab.er.24h Gabapentin [Neurontin] 100 mg PO TID #90 capsule Lisinopril 10 mg PO DAILY #30 tablet metFORMIN [Glucophage] 1,000 mg PO BID #120 tablet Mv,Ca,Min/Folic Acid/Vit K1 [One-A-Day Women's 50 Plus Tab] 1 each PO DAILY #30 tablet Nicotine 14 mg Patch [Nicoderm] 1 patch TOP Q24H #7 patch Pantoprazole [Protonix] 40 mg PO QDAC #30 tablet Diet: Diabetic Activity Restrictions: Activity as Tolerated Shower Restrictions: No Weight Bearing: Full Weight Instruction Topics: Pantoprazole tablets, Metformin tablets, Gabapentin capsules or tablets, Nicotine skin patches, Oxycodone tablets or capsules, Hypoglycemia, Hypokalemia Dc Additional Instructions or Follow Up instructions: You were admitted with blood sugars that were in the 30's. All of your diabetic medications were held and this eventually stabilized. Please STOP the Lantus and only resume the metformin. You have chronic pain, so I have given you a prescription for oxycodone. Please see your PCP within one week to check on your new medications and to help manage your pain. Follow-Up Care: [facility] - Diabetes Ed No Smoking: If you smoke, Please STOP! Call for help. Follow-up with: Roseanne Lara ARNP [Primary Care Provider] -
--- NOTE | 2018-06-07 07:57 | DISCHARGE SUMMARY ---
Discharge Summary Admit Date: 06/05/18 Discharge Date: 06/07/18 Discharging Provider: SUSSY Arnold Primary Care Provider: Roseanne Lara Code Status: Attempt Resuscitation Condition at Discharge: Good Discharge Disposition: 01 Home, Self Care - DIAGNOSES Admission Diagnoses: Hypoglycemia, unspecified (E16.2) Hypokalemia (E87.6) Hypothermia, initial encounter (T68.XXXA) Chronic obstructive pulmonary disease, unspecified (J44.9) Essential (primary) hypertension (I10) Other psychoactive substance abuse, uncomplicated (F19.10) Nicotine dependence, unspecified, uncomplicated (F17.200) Discharge Diagnoses with Status of Each Condition: Hypoglycemia (E16.2) resolved. Diabetes mellitus type 2 in nonobese (E11.9) Continue on metformin, stop Lantus to prevent further hypoglycemia. Hypokalemia (E87.6) resolved. Hypothermia (T68.XXXA) resolved. COPD (chronic obstructive pulmonary disease) (J44.9) chronic, stable. Hypertension (I10) chronic, stable. Polysubstance abuse (F19.10) chronic, stable. Tobacco dependence (F17.200) chronic, stable. Acute neutrophilia (D72.828) improved, stable. - HPI History of Present Illness: Farrah Anguiano is a 52-year old female with a past medical history of homelessness, chronic abdominal pain, lung mass, pulmonary nodule, portal vein DVT, splenic infarction, status post partial splenectomy, alcohol dependence, diabetes mellitus type 2-insulin dependent, hyperlipidemia, GERD, vocal cord polyp, depression, tobacco dependence, heroin use via inhalation, meth use via inhalation, COPD, recurrent pneumonia, cirrhosis, chronic pancreatitis, hypertension, gout,and DJD. The patient was brought in by EMS with very low blood sugars in the 30 range. The patient believes that her roommate, Yana made the call to 911 after not being able to wake her up. The patient states that she remembers eating a biscuit last night and feeling like she may be coming down with the flu all of yesterday. She complains of BLE pain that bec omes worse with walking, headache, fatigue, nausea, and fever with chills at home. On exam she denies chest pain, vomiting, diarrhea, bleeding, a rash, recent falls, recent travel, or a productive cough. She states that she has run out of most of her prescriptions at home with the exception of her insulin and metformin, which she took last night before lying down. Vital signs show hypertension with a blood pressure of 160/98 with no other abnormalities. She was reported as being hypothermic, but I have no data supporting this. She has a normal CBC, but very abnormal electrolytes with a sodium of 2.8, a blood sugar of 34, bilirubin of 1.8, AST of 55, alk phos of 246, and no other abnormalities. There was no imaging done. The patient will be placed in observation to evaluate for the cause of these abnormalities and she is positives on a MUDDS screen for meth, amphetimines, opiates, and marijuana, but denies recent use. - HOSPITAL COURSE Hospital Course: The patient's home diabetic meds were held, and her hypoglycemia resolved. She continued to have pain, so a short course of oxycodone was given, in addition to continuing maintenance medications since she had not been to a PCP in a while and claimed that she was out of prescriptions. She was medically stable and transported via private car home. - ALLERGIES Allergies/Adverse Reactions: Allergies Allergy/AdvReac Type Severity Reaction Status Date / Time morphine Allergy unknown Verified 06/05/18 12:15 - MEDICATIONS Home Medications: Ambulatory Orders Medication Instructions Recorded Confirmed Omeprazole 20 mg PO QDAC 10/18/16 06/05/18 Ondansetron HCl [Zofran] 4 mg PO Q8H PRN 06/05/18 06/05/18 Acetaminophen [Tylenol] 650 mg PO Q4HR PRN tablet 06/07/18 Allopurinol 100 mg PO DAILY #30 tablet 06/07/18 Aspirin [Adult Aspirin Regimen] 81 mg PO DAILY #30 tablet. 06/07/18 Atorvastatin Calcium 20 mg PO DAILY #30 tablet 06/07/18 Bupropion HCl [Bupropion Xl] 300 mg PO DAILY #60 tab.er.24h 06/07/18 Gabapentin [Neurontin] 100 mg PO TID #90 capsule 06/07/18 Lisinopril 10 mg PO DAILY #30 tablet 06/07/18 Mv,Ca,Min/Folic Acid/Vit K1 1 each PO DAILY #30 tablet 06/07/18 [One-A-Day Women's 50 Plus Tab] Nicotine 14 mg Patch [Nicoderm] 1 patch TOP Q24H #7 patch 06/07/18 Pantoprazole [Protonix] 40 mg PO QDAC #30 tablet 06/07/18 metFORMIN [Glucophage] 1,000 mg PO BID #120 tablet 06/07/18 oxyCODONE [Roxicodone] 5 mg PO Q4HR PRN #20 tablet 06/07/18 - PHYSICAL EXAM AT DISCHARGE General Appearance: positive: No acute distress, Alert Eyes Bilateral: positive: Normal inspection, PERRL ENT: positive: ENT inspection nml, Pharynx nml, No signs of dehydration Neck: positive: Thyroid nml, No JVD, Trachea midline Respiratory: positive: Chest non-tender, No respiratory distress, Breath sounds nml Cardiovascular: positive: Regular rate & rhythm, No gallop, Systolic murmur Peripheral Pulses: positive: 2+ Abdomen: positive: Non-tender, Nml bowel sounds Back: positive: Nml inspection Skin: positive: No rash, Warm, Dry, Other (bronze) Extremities: positive: Non-tender, Full ROM, Nml appearance, No pedal edema Neurologic/Psychiatric: positive: Oriented x3, CN's nml (2-12), Motor nml, Sensation nml, Depressed mood/affect Reflexes: Bicep (R): 3+, Bicep (L): 3+ - LABS Result Diagrams: 06/07/18 05:56 06/07/18 05:56 - SEPSIS Current Stage of Sepsis: Ruled out - FOLLOW UP Follow Up: Disposition: Home, Self Care Condition: Good Prescriptions: oxyCODONE [Roxicodone] 5 mg PO Q4HR PRN #20 tablet PRN Reason: Pain Allopurinol 100 mg PO DAILY #30 tablet Aspirin [Adult Aspirin Regimen] 81 mg PO DAILY #30 tablet. Atorvastatin Calcium 20 mg PO DAILY #30 tablet Bupropion HCl [Bupropion Xl] 300 mg PO DAILY #60 tab.er.24h Gabapentin [Neurontin] 100 mg PO TID #90 capsule Lisinopril 10 mg PO DAILY #30 tablet metFORMIN [Glucophage] 1,000 mg PO BID #120 tablet Mv,Ca,Min/Folic Acid/Vit K1 [One-A-Day Women's 50 Plus Tab] 1 each PO DAILY #30 tablet Nicotine 14 mg Patch [Nicoderm] 1 patch TOP Q24H #7 patch Pantoprazole [Protonix] 40 mg PO QDAC #30 tablet Additional Instructions or Follow Up instructions: You were admitted with blood sugars that were in the 30's. All of your diabetic medications were held and this eventually stabilized. Please STOP the Lantus and only resume the metformin. You have chronic pain, so I have given you a prescription for oxycodone. Please see your PCP within one week to check on your new medications and to help manage your pain. - TIME SPENT Time Spent in Discharge (Minutes): 50
[2018-06-07] MEDS ORDERED: INSULIN ASPART 300 UNIT/3 ML PEN SUBQ SCH ×2 (08:00→12:00)
[2018-06-07] MEDS: MAGNESIUM OXIDE 400 MG TABLET PO SCH (08:29)
[2018-06-07] MEDS: buPROPion XL 150 MG TABLET PO SCH (08:29)
[2018-06-07] MEDS: ALLOPURINOL 100 MG TABLET PO SCH (08:30)
[2018-06-07] MEDS: ATORVASTATIN 10 MG TABLET PO SCH (08:30)
[2018-06-07] MEDS: LISINOPRIL 20 MG TABLET PO SCH (08:30)
[2018-06-07] MEDS: ENOXAPARIN 30 MG/0.3 ML SYRINGE SUBQ SCH (08:31)
[2018-06-07] MEDS ORDERED: metFORMIN 500 MG TABLET PO SCH (09:30)
[2018-06-07 12:31] VITALS: BP 151/88
== END 2018-06-07 13:20 | disposition home or self-care (01) ==
LOC: EDUNIT# → ED 12:06 → MS2 15:33
PROVIDERS: ADMIT Nurse Practitioner; ATTEND Nurse Practitioner
DX: E11.649 Type 2 diabetes mellitus with hypoglycemia without coma (principal); T68.XXXA Hypothermia, initial encounter; E87.6 Hypokalemia; E11.42 Type 2 diabetes mellitus with diabetic polyneuropathy; J44.9 Chronic obstructive pulmonary disease, unspecified; I10 Essential (primary) hypertension; F15.10 Other stimulant abuse, uncomplicated; F11.10 Opioid abuse, uncomplicated; F12.10 Cannabis abuse, uncomplicated; F10.20 Alcohol dependence, uncomplicated; F17.210 Nicotine dependence, cigarettes, uncomplicated; D72.828 Other elevated white blood cell count; G89.29 Other chronic pain; R10.9 Unspecified abdominal pain; M54.9 Dorsalgia, unspecified; E78.5 Hyperlipidemia, unspecified; K21.9 Gastro-esophageal reflux disease without esophagitis; T50.906A Underdosing of unspecified drugs, medicaments and biological substances, initial encounter; F32.9 Major depressive disorder, single episode, unspecified; F41.9 Anxiety disorder, unspecified; K74.60 Unspecified cirrhosis of liver; K86.1 Other chronic pancreatitis; M10.9 Gout, unspecified; M19.90 Unspecified osteoarthritis, unspecified site; J32.9 Chronic sinusitis, unspecified; H91.90 Unspecified hearing loss, unspecified ear; Z79.4 Long term (current) use of insulin; Z79.52 Long term (current) use of systemic steroids; Z79.899 Other long term (current) drug therapy; Z87.01 Personal history of pneumonia (recurrent); Z86.718 Personal history of other venous thrombosis and embolism; Z87.19 Personal history of other diseases of the digestive system; Z90.49 Acquired absence of other specified parts of digestive tract; Z87.11 Personal history of peptic ulcer disease; Z96.649 Presence of unspecified artificial hip joint
CPT/HCPCS: 36415; 80053; 80306; 81001; 82550; 83036; 83690; 83735; 84100; 85025; 93005; 96361; 96365; 96366; 96372; 96375; 96376; 99285; A9270; G0378; J1170; J1650; 81003; 87086

== ENCOUNTER 2018-08-12 10:38 | Outpatient (CLI) | payer MEDICAID ==
[2018-08-12] MEDS: IOVERSOL 320 100 ML VIAL IVP ONE (18:06)
[2018-08-13] MEDS: IOVERSOL 320 100 ML VIAL IVP ONE (20:58)
== END 2018-08-12 10:39 | disposition critical access hospital (66) ==
LOC: EMS 10:38
PROVIDERS: ATTEND Surgery
DX: R69 Illness, unspecified (principal)
CPT/HCPCS: A0425; A0429; A0999

== ENCOUNTER 2018-08-12 11:00 | Inpatient (IN) | payer MEDICAID ==
[2018-08-12 11:34] LABS: BASOPHILS # (AUTO) 0.1 10^3/uL (0.0-0.1); BASOPHILS % (AUTO) 0.5 %; EOSINOPHILS % (AUTO) 0.1 %; HGB - HEMOGLOBIN 13.6 g/dL (12.0-16.0); LYMPHOCYTES # (AUTO) 1.4 10^3/uL (1.5-3.5); LYMPHOCYTES % (AUTO) 9.4 %; MEAN CORPUSCULAR HGB CONC 32.5 g/dL (32.0-36.0); MEAN CORPUSCULAR VOLUME 98.5 fL (81.0-99.0); MEAN PLATELET VOLUME 10.3 fL (7.9-10.8); MONOCYTES # (AUTO) 0.6 10^3/uL (0.0-1.0); MONOCYTES % (AUTO) 4.4 %; NEUTROPHILS # (AUTO) 12.2 10^3/uL (1.5-6.6); NEUTROPHILS % (AUTO) 85.6 %; PLT - PLATELET COUNT 452 10^3/uL (130-450); RED BLOOD COUNT 4.25 10^6/uL (4.20-5.40); RED CELL DISTRIBUTION WIDTH 13.5 % (12.0-15.0); WHITE BLOOD COUNT 14.3 x10^3/uL (4.8-10.8)
[2018-08-12 11:53] LABS: MUDS CUTOFF CONCENTRATIONS CUTOFF CONC BELOW:
[2018-08-12 11:59] LABS: ALBUMIN 2.6 g/dL (3.2-5.5); ALBUMIN/GLOBULIN RATIO 0.5 (1.0-2.2); ALKALINE PHOSPHATASE 289 IU/L (42-121); ALT ALANINE AMINOTRANSFERASE 28 IU/L (10-60); AST ASPARTATE AMINOTRANSFERASE 23 IU/L (10-42); BILIRUBIN,TOTAL 2.2 mg/dL (0.2-1.0); BUN - BLOOD UREA NITROGEN 18 mg/dL (6-20); CALCIUM 8.6 mg/dL (8.5-10.3); CARBON DIOXIDE - CO2 14 mmol/L (21-32); CHLORIDE 88 mmol/L (101-111); CREATININE 0.9 mg/dL (0.4-1.0); GFR - MDRD 66 (>89); LIPASE 76 U/L (22-51); SODIUM 125 mmol/L (135-145); TOTAL PROTEIN 8.2 g/dL (6.7-8.2)
[2018-08-12 12:00] LABS: GLUCOSE 695 mg/dL (70-100)
[2018-08-12 12:05] LABS: BILIRUBIN,URINE NEGATIVE (NEGATIVE); GLUCOSE, URINE (UA) >=1000 mg/dL (NEGATIVE); KETONES,URINE (UA) >=80 mg/dL (NEGATIVE); LEUKOCYTE ESTERASE, URINE NEGATIVE (NEGATIVE); NITRITE,URINE NEGATIVE (NEGATIVE); OCCULT BLOOD,URINE NEGATIVE (NEGATIVE); PH,URINE 5.5 PH (5.0-7.5); PROTEIN,URINE NEGATIVE (NEGATIVE); UROBILINOGEN,URINE 0.2 (NORMAL) E.U./dL (NORMAL)
[2018-08-12 12:09] LABS: AMPHETAMINE SCREEN,URINE NEGATIVE (NEGATIVE); BENZODIAZEPINES SCREEN, URINE NEGATIVE (NEGATIVE); COCAINE SCREEN URINE NEGATIVE (NEGATIVE); METHADONE SCREEN, URINE NEGATIVE (NEGATIVE); METHAMPHETAMINES SCREEN, URINE NEGATIVE (NEGATIVE); OPIATE SCREEN, URINE NEGATIVE (NEGATIVE); OXYCODONE SCREEN, URINE NEGATIVE (NEGATIVE); PROPOXYPHENE SCREEN, URINE NEGATIVE (NEGATIVE); TRICYCLIC ANTIDEPRESSANT,URINE NEGATIVE (NEGATIVE)
[2018-08-12 12:16] LABS: CLARITY,URINE CLEAR (CLEAR)
[2018-08-12 12:17] LABS: HCG UR QUAL NEGATIVE
[2018-08-12] MEDS ORDERED: ELECTROLYTE-A SOLUTION 1,000 ML IV ONE (12:19)
[2018-08-12] MEDS ORDERED: INSULIN REGULAR HUMAN 100 UNIT in SODIUM CHLORIDE 0.9% 100ML 99 ML SUBQ STA (12:20)
[2018-08-12] MEDS: ELECTROLYTE-A SOLUTION 1,000 ML IV SCH (12:40)
[2018-08-12 12:46] LABS: VBG PCO2 28.1 mmHg (41-51); VBG PH 7.274 (7.31-7.41); VBG PO2 43.4 mmHg (25-47); VBG TOTAL CO2 13.6 mmol/L (24-29)
[2018-08-12 12:47] LABS: VBG BASE EXCESS -12.5 mmol/L (-2 - +2)
--- NOTE | 2018-08-12 13:10 | ED Physician Documentation ---
PD HPI ABD PAIN - Stated complaint Stated Complaint: HIGH BLOOD SUGAR - Chief complaint Chief Complaint: Abd Pain - History obtained from History obtained from: Patient - History of Present Illness Timing - onset: Unknown Timing - details: Gradual onset Pain level max: 8 Pain level now: 8 Quality: Cramping Location: Epigastric Radiation: No: Chest, , Lower back, Left flank, Left shoulder, Right flank, Right shoulder, Upper back Improved by: Other (nothing) Worsened by: Other (nothing) Associated symptoms: Nausea. No: Fever, Vomiting, Hematemesis, Diarrhea, Constipation, Melena, Dysuria Similar symptoms before: Diagnosis (DKA) Recently seen: Not recently seen - Additional information Additional information: Patient states stopped all medications a month ago. now not feeling well. states epigastric pain x 3 days. crampy. nothing makes it better or worse. No chest pain. no fever. no chills. No vomiting but is nauseated. 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: None : None HEENT: Other Psych: Depression Musculoskeletal: Gout Derm: Other - Past Surgical History Past Surgical History: Yes General: Splenectomy Ortho: Hip replacement, Rotator cuff repair, Other - Present Medications Home Medications: Ambulatory Orders Medication Instructions Recorded Confirmed Acetaminophen [Tylenol] 650 mg PO Q4HR PRN tablet 06/07/18 08/12/18 Atorvastatin Calcium 20 mg PO DAILY #30 tablet 06/07/18 08/12/18 Gabapentin [Neurontin] 100 mg PO TID #90 capsule 06/07/18 08/12/18 Lisinopril 10 mg PO DAILY #30 tablet 06/07/18 08/12/18 metFORMIN [Glucophage] 1,000 mg PO BID #120 tablet 06/07/18 08/12/18 Omeprazole 20 mg PO DAILY 08/12/18 08/12/18 - Allergies Allergies/Adverse Reactions: Allergies Allergy/AdvReac Type Severity Reaction Status Date / Time morphine Allergy unknown Verified 08/12/18 11:10 - Social History Does the pt smoke?: Yes Smoking Status: Current every day smoker Does the pt drink ETOH?: No Does the pt have substance abuse?: No - Immunizations Immunizations are current?: Yes Immunizations: TDAP >10years/unknown - POLST Patient has POLST: No POLST Status: Full Code PD ED PE NORMAL - Vitals Vital signs reviewed: Yes - General General: Alert and oriented X 3, Other (disheveled) - HEENT HEENT: Moist mucous membranes, Pharynx benign - Neck Neck: Supple, no meningeal sign - Cardiac Cardiac: RRR - Respiratory Respiratory: No respiratory distress, Clear bilaterally - Abdomen Abdomen: Soft, Other (TTP epigastric, no peritonea signs.) - Back Back: No CVA TTP, No spinal TTP - Derm Derm: Warm and dry, No rash - Extremities Extremities: No edema - Neuro Neuro: Alert and oriented X 3 Results - Vitals Vitals: Vital Signs - 24 hr 08/12/18 08/12/18 08/12/18 11:00 13:10 15:27 Temperature 35.7 C L Heart Rate 58 L 72 80 Respiratory 18 16 15 Rate Blood Pressure 174/98 H 150/76 H 146/83 H O2 Saturation 100 99 99 Oxygen O2 Source Room air - Labs Labs: Laboratory Tests 08/12/18 08/12/18 08/12/18 11:26 11:26 11:26 WBC 14.3 H RBC 4.25 Hgb 13.6 Hct 41.9 MCV 98.5 MCH 32.0 H MCHC 32.5 RDW 13.5 Plt Count 452 H MPV 10.3 Neut # (Auto) 12.2 H Lymph # (Auto) 1.4 L Edgar # (Auto) 0.6 Eos # (Auto) 0.0 Baso # (Auto) 0.1 Absolute Nucleated RBC 0.00 Nucleated RBC % 0.0 VBG pH VBG pCO2 VBG pO2 VBG HCO3 VBG Total CO2 VBG O2 Saturation VBG Base Excess Sodium 125 L Potassium 3.5 Chloride 88 L Carbon Dioxide 14 L Anion Gap 23.0 H BUN 18 Creatinine 0.9 Estimated GFR (MDRD) 66 L Glucose 695 H* Glycated Hemoglobin 16.4 H Estim Average Glucose 424 H Calcium 8.6 Total Bilirubin 2.2 H AST 23 ALT 28 Alkaline Phosphatase 289 H Total Protein 8.2 Albumin 2.6 L Globulin 5.6 H Albumin/Globulin Ratio 0.5 L Lipase 76 H Urine Color Urine Clarity Urine pH Ur Specific [place] Urine Protein Urine Glucose (UA) Urine Ketones Urine Occult Blood Urine Nitrite Urine Bilirubin Urine Urobilinogen Ur Leukocyte Esterase Ur Microscopic Review Urine Culture Comments Urine HCG, Qual Urine Opiates Screen Ur Oxycodone Screen Urine Methadone Screen Ur Propoxyphene Screen Ur Barbiturates Screen Ur Tricyclics Screen Ur Phencyclidine Scrn Ur Amphetamine Screen U Methamphetamines Scrn U Benzodiazepines Scrn Urine Cocaine Screen U Cannabinoids Screen Ethyl Alcohol < 5.0 Serum Ketones 08/12/18 08/12/18 08/12/18 11:45 11:45 11:45 WBC RBC Hgb Hct MCV MCH MCHC RDW Plt Count MPV Neut # (Auto) Lymph # (Auto) Edgar # (Auto) Eos # (Auto) Baso # (Auto) Absolute Nucleated RBC Nucleated RBC % VBG pH VBG pCO2 VBG pO2 VBG HCO3 VBG Total CO2 VBG O2 Saturation VBG Base Excess Sodium Potassium Chloride Carbon Dioxide Anion Gap BUN Creatinine Estimated GFR (MDRD) Glucose Glycated Hemoglobin Estim Average Glucose Calcium Total Bilirubin AST ALT Alkaline Phosphatase Total Protein Albumin Globulin Albumin/Globulin Ratio Lipase Urine Color YELLOW Urine Clarity CLEAR Urine pH 5.5 Ur Specific [place] >=1.030 H 1.020 Urine Protein NEGATIVE Urine Glucose (UA) >=1000 H Urine Ketones >=80 H Urine Occult Blood NEGATIVE Urine Nitrite NEGATIVE Urine Bilirubin NEGATIVE Urine Urobilinogen 0.2 (NORMAL) Ur Leukocyte Esterase NEGATIVE Ur Microscopic Review NOT INDICATED Urine Culture Comments NOT INDICATED Urine HCG, Qual NEGATIVE Urine Opiates Screen NEGATIVE Ur Oxycodone Screen NEGATIVE Urine Methadone Screen NEGATIVE Ur Propoxyphene Screen NEGATIVE Ur Barbiturates Screen NEGATIVE Ur Tricyclics Screen NEGATIVE Ur Phencyclidine Scrn NEGATIVE Ur Amphetamine Screen NEGATIVE U Methamphetamines Scrn NEGATIVE U Benzodiazepines Scrn NEGATIVE Urine Cocaine Screen NEGATIVE U Cannabinoids Screen POSITIVE H Ethyl Alcohol Serum Ketones 08/12/18 08/12/18 12:38 12:38 WBC RBC Hgb Hct MCV MCH MCHC RDW Plt Count MPV Neut # (Auto) Lymph # (Auto) Edgar # (Auto) Eos # (Auto) Baso # (Auto) Absolute Nucleated RBC Nucleated RBC % VBG pH 7.274 L VBG pCO2 28.1 L VBG pO2 43.4 VBG HCO3 12.7 L VBG Total CO2 13.6 L VBG O2 Saturation 73.8 VBG Base Excess -12.5 L Sodium Potassium Chloride Carbon Dioxide Anion Gap BUN Creatinine Estimated GFR (MDRD) Glucose Glycated Hemoglobin Estim Average Glucose Calcium Total Bilirubin AST ALT Alkaline Phosphatase Total Protein Albumin Globulin Albumin/Globulin Ratio Lipase Urine Color Urine Clarity Urine pH Ur Specific [place] Urine Protein Urine Glucose (UA) Urine Ketones Urine Occult Blood Urine Nitrite Urine Bilirubin Urine Urobilinogen Ur Leukocyte Esterase Ur Microscopic Review Urine Culture Comments Urine HCG, Qual Urine Opiates Screen Ur Oxycodone Screen Urine Methadone Screen Ur Propoxyphene Screen Ur Barbiturates Screen Ur Tricyclics Screen Ur Phencyclidine Scrn Ur Amphetamine Screen U Methamphetamines Scrn U Benzodiazepines Scrn Urine Cocaine Screen U Cannabinoids Screen Ethyl Alcohol Serum Ketones MODERATE H PD MEDICAL DECISION MAKING - ED course Complexity details: reviewed results, re-evaluated patient, considered differential, d/w patient ED course: 53-year-old female presents to the emergency department with DKA. Given IV fluids. Started on an insulin drip. Discussed the case with Dr. Dial, hospitalist who accepts. This document was made in part using voice recognition software. While efforts are made to proofread this document, sound alike and grammatical errors may occur. Departure - Departure Disposition: 66 [facility] DC/Xfer Clinical Impression: DKA (diabetic ketoacidoses) Qualifiers: Diabetes mellitus type: type 1 Diabetes mellitus complication detail: without coma Qualified Code(s): E10.10 - Type 1 diabetes mellitus with ketoacidosis without coma Condition: Stable Discharge Date/Time: 08/12/18 17:19
[2018-08-12] MEDS ORDERED: ONDANSETRON 4 MG/2 ML VIAL IVP STA (13:16)
[2018-08-12] MEDS ORDERED: HYDROmorphone 1 MG/ML CARPUJECT IVP STA (13:16)
[2018-08-12] MEDS ORDERED: PROCHLORPERAZINE 10 MG/2 ML VIAL IVP PRN (16:18)
[2018-08-12] MEDS ORDERED: INSULIN REGULAR HUMAN 100 UNIT in SODIUM CHLORIDE 0.9% 100ML 99 ML IV SCH (17:00)
[2018-08-12] MEDS ORDERED: SODIUM CHLORIDE 0.9% 1,000 ML IV SCH ×2 (17:00→19:00)
[2018-08-12 17:02] LABS: HB2 TOTAL 15.2 g/dL; HEMOGLOBIN A1C 2.37 g/dL; HEMOGLOBIN A1C % 16.4 % (4.6-6.2)
[2018-08-12 17:09] LABS: VBG BASE EXCESS -6.4 mmol/L (-2 - +2); VBG PCO2 27.3 mmHg (41-51); VBG PH 7.406 (7.31-7.41); VBG PO2 75.7 mmHg (25-47); VBG TOTAL CO2 17.6 mmol/L (24-29)
[2018-08-12] MEDS ORDERED: IOVERSOL 320 100 ML VIAL IVP ONE (17:13)
[2018-08-12 17:18] LABS: KETONES, SERUM (ACETEST) SMALL (NEGATIVE)
[2018-08-12 17:22] LABS: BUN - BLOOD UREA NITROGEN 14 mg/dL (6-20); CALCIUM 7.9 mg/dL (8.5-10.3); CARBON DIOXIDE - CO2 17 mmol/L (21-32); CHLORIDE 97 mmol/L (101-111); CREATININE 0.7 mg/dL (0.4-1.0); GFR - MDRD 88 (>89); GLUCOSE 375 mg/dL (70-100); MAGNESIUM 1.2 mg/dL (1.7-2.8); SODIUM 128 mmol/L (135-145)
[2018-08-12] MEDS: SODIUM CHLORIDE FLUSH 0.9% 10 ML SYRINGE IVP SCH (17:35)
[2018-08-12] MEDS: NS W/20 MEQ KCL 1,000 ML IV SCH (18:06)
[2018-08-12] MEDS: NICOTINE 14 MG PATCH TOP SCH (18:18)
[2018-08-12] MEDS: HYDROmorphone 0.5 MG/0.5 ML SYRINGE IVP PRN ×3 (18:19→23:59)
[2018-08-12] MEDS ORDERED: POTASSIUM CHLOR 10 MEQ/100 ML 10 MEQ/100 ML BAG IV SCH ×2 (18:30→19:57)
[2018-08-12 19:19] LABS: BUN - BLOOD UREA NITROGEN 14 mg/dL (6-20); CALCIUM 7.9 mg/dL (8.5-10.3); CARBON DIOXIDE - CO2 21 mmol/L (21-32); CHLORIDE 98 mmol/L (101-111); CREATININE 0.7 mg/dL (0.4-1.0); GFR - MDRD 88 (>89); GLUCOSE 306 mg/dL (70-100); MAGNESIUM 1.2 mg/dL (1.7-2.8); SODIUM 130 mmol/L (135-145)
--- NOTE | 2018-08-12 19:33 | HISTORY & PHYSICAL EXAMINATION ---
DATE OF SERVICE: 08/12/2018 Physician: Angela Dial MD HISTORY OF PRESENT ILLNESS: This is a 53-year-old white female with a history of methamphetamine and other drug abuse in the past, tobacco user, history of diabetes on insulin, history of noncompliance, admission 2 months ago for hypoglycemia, which was felt to be due to taking excessive metformin and insulin by mistake. She also has a history of homelessness, lung mass, portal vein DVT, splenic infarction, status post partial splenectomy, alcohol abuse, gastroesophageal reflux disease, vocal cord polyp, depression, COPD, recurrent pneumonia, cirrhosis, chronic pancreatitis, hypertension, gout and DJD. The patient presented to the emergency room obtunded, is unsure who called for an ambulance. She complained of nausea but no vomiting and admitted thatshe had stopped all of her medications one month ago. She was found to have hyperglycemia with glucoses over 600 and acidotic with a pH on blood gas of 7.2. She is being admitted to the ICU for DKA. PAST MEDICAL HISTORY: See first paragraph. MEDICATIONS: She stopped taking all medications one month ago. The patient was supposed to be on 1. Omeprazole. 2. Allopurinol. 3. Baby aspirin. 4. Lipitor 20 mg 5. Bupropion 300 mg. 6. Gabapentin 100 mg t.i.d. 7. Lisinopril 10 mg daily. 8. Multivitamin daily. 9. Protonix 40 mg daily. 10. Metformin 1000 mg b.i.d. 11. Roxicodone 5 mg p.r.n. There is a scanned note that she should not be discharged with controlled substances because of her past history. ALLERGIES: MORPHINE. REVIEW OF SYSTEMS: A comprehensive review of systems was performed by chart review, the pertinent positives are listed, the rest are negative. FAMILY HISTORY: No inherited diseases. SOCIAL HISTORY: Smoker of half pack a day since age 14, past heroin abuse, methamphetamine abuse. She is homeless, but recently lives in an apartment with a friend. PHYSICAL EXAMINATION GENERAL: Cachectic white female. She is obtunded, awakens to her name and answers with one word answers and then falls back asleep. She is in no respiratory distress. She is very tanned with her skin appearing very weathered and thick consistent with being homeless. VITAL SIGNS: Blood pressure 136/73, pulse of 70-80 in sinus rhythm. She is afebrile. Her first temperature was hypothermic at 35.7, but the repeat is 37. She has a room air saturation of 100% with respiratory rate 12. HEENT: Shows exophthalmus, left greater than right. Dry oral mucosa. Poor dentition. NECK: Without JVD. LUNGS: Clear at the anterior bases. HEART: Sounds are very distant. No murmur or RV heave. No gallop. ABDOMEN: Soft, thin. Decreased bowel sounds. Nontender. EXTREMITIES: Show no clubbing, cyanosis or edema. NEUROLOGIC: Obtunded. LABORATORY AND DIAGNOSTIC DATA: Sodium 125, potassium 3.5, BUN 18, creatinine 0.9, glucose 695. Her A1c is 16.4. Magnesium 1.2. Normal AST and ALT, alkaline phosphatase 289, lipase 76, albumin 2.6, pH 7.27. White blood count 14.3, hemoglobin 13.6, platelet count 452. Toxicology screen showed only positive marijuana and serum ketones were moderate. Urinalysis showed a pH of 1.02 with large glucose, large ketones and no bacteria. No EKG was done and no chest x-ray was done. IMPRESSION/DIAGNOSES 1. Diabetic ketoacidosis. 2. Noncompliance. 3. Cachexia. 4. History of drug abuse. 5. Tobacco use history. 6. Chronic pancreatitis and currently elevated lipase. 7. History of cirrhosis, but currently normal LFTs. 8. History of homelessness. PLAN: Place the patient in the ICU. Start DKA protocol with frequent glucose monitoring, insulin drip, electrolyte management. When the glucose is under 200, begin D5 supplementation and then advance her diet, currently n.p.o. except ice chips. She will need diabetic education management regarding proper compliance with her drugs. Social work will be requested for consult regarding her home situation or for any other assistance. Obtain imaging of the pancreas and follow the Lipase daily. DEEP VENOUS THROMBOSIS PROPHYLAXIS: SCDs. CODE STATUS: FULL CODE. ATTESTATION: The patient is expected to be discharged and transferred to another facility within 96 hours: Yes. TD: 08/12/2018 19:16 MOY
[2018-08-12 19:37] LABS: KETONES, SERUM (ACETEST) MODERATE (NEGATIVE)
[2018-08-12 19:42] LABS: KETONES, SERUM (ACETEST) SMALL (NEGATIVE)
[2018-08-12 19:45] LABS: BUN - BLOOD UREA NITROGEN 13 mg/dL (6-20); CALCIUM 7.9 mg/dL (8.5-10.3); CARBON DIOXIDE - CO2 20 mmol/L (21-32); CHLORIDE 98 mmol/L (101-111); CREATININE 0.7 mg/dL (0.4-1.0); GFR - MDRD 88 (>89); GLUCOSE 276 mg/dL (70-100); MAGNESIUM 1.2 mg/dL (1.7-2.8); SODIUM 130 mmol/L (135-145)
[2018-08-12] MEDS: SODIUM CHLORIDE FLUSH 0.9% 10 ML SYRINGE IVP PRN (20:29)
[2018-08-12] MEDS: FAMOTIDINE 20 MG/50 ML 50 ML IV SCH (20:38)
--- NOTE | 2018-08-12 21:38 | XRAY Report ---
Reason: CENTRAL LINE PLACEMENT Procedure Date: 08/12/2018 Accession Number: [id number] / [id number] Procedure: XR - Chest 1 View X-Ray CPT Code: 91963 FULL RESULT: EXAM: CHEST RADIOGRAPHY EXAM DATE: 08/12/2018 09:17 PM. CLINICAL HISTORY: CENTRAL LINE PLACEMENT. COMPARISON: CHEST 1 VIEW 01/02/2018 10:17 AM ABDOMEN/PELVIS W/ 08/12/2018 5:54 PM. TECHNIQUE: 1 view. FINDINGS: Cardiac leads overlie the chest. The patient is rotated to the left. A left central venous catheter is seen terminating near the superior cavoatrial junction. Heart size is normal. Patchy consolidation in the medial left lower lobe. No pleural effusions or pneumothoraces visualized. Postoperative changes to the left upper abdominal quadrant. IMPRESSION: Left central venous catheter terminating near the superior cavoatrial junction. Patchy medial left lung base consolidation. RADIA
--- NOTE | 2018-08-12 21:43 | OPERATIVE REPORT ---
Operative Report - General Admit Date: 08/12/18 Procedure Date: 08/12/18 Planned Procedure: Left subclavian triple-lumen catheter placement Pre-Op Diagnosis: Poor IV access and a 53-year-old female with DKA Procedure Performed: Left subclavian triple-lumen placement Post Op Diagnosis: Same - Procedure Note Primary Surgeon: Santiago Cade MD Anesthesia Technique: Local (10 mL of 1% lidocaine) Pathology: None Estimated Blood Loss (mL): 5 Complications: Post procedure chest x-ray obtained showing good placement of the tip of the catheter in the right atrium without pneumothorax - Other Other Information/Narrative: OPERATIVE DESCRIPTION/REPORT: After verbal and written informed consent was obtained detailing the risks of infection, bleeding requiring transfusion with its risks, nerve injury, and , and after I met with the patient confirming the surgery and the site of the surgery, the patient was prepped and draped in the usual sterile manner. A "time in" then confirmed that the patient was identified with 3 identifiers (name, date and medical record number), the history and physical was in the chart, the signed consent confirming the procedure was in the chart, the patient was in the correct position, the aforementioned prophylactic measures were in place or given, we had the correct personnel and equipment to complete the procedure and that everyone was given an opportunity to express any concerns. With the agreement of everyone in the room, we proceeded with the operation. After the subclavian region was anesthetized using 1% lidocaine and the patient placed in Trendelenberg position, an triple lumen kit (Ref# [id number], Lot#[id number], use by date 2019-08-28) was opened. The finder needle was inserted into the subclavian vein taking great care to place it just under the clavicle in order to minimize the risk of pneumothorax. When good venous blood return was obtained, the wire was placed through the needle and into the vein without difficulty. Cardiac irritability confirmed that the catheter was correctly going down towards the heart. An 11 blade knife was inserted along the wire to widen the insertion site. The dilator was inserted over the wire taking great care to visualize the wire at all times The dilator was withdrawn and the catheter was placed over the wire again taking great care to visualize the wire at all times. When the wire exited the brown port the wire was removed and the catheter was inserted to 19 cm distance. All 3 port sites were checked and noted to have good blood return and excellent flow. A portable X-ray confirmed placement of the catheter tip in the right atrium/supracardiac vena cava without pneumothorax. The triple lumen was then secured to the skin at all 4 provided sites using 3-0 silk suture. A sterile dressing was applied. The patient tolerated the procedure quite well and was instructed that the triple- lumen could be used immediately. [employer] disclaimer: This document was created in part using voice recognition technology. Because of the inherent limitations of the system ([employer] Dictate user manual states that the licensee understands that speech recognition is a statistical process and that recognition errors are inherent in the process), occasional same sounding word substitutions and grammatical errors do occur and persist despite proofreading. Please read this document for context.
[2018-08-12] MEDS: MAGNESIUM SULFATE 2 GRAM 2 GM/50 ML BAG IV SCH ×2 (21:46→22:56)
[2018-08-12 21:47] LABS: KETONES, SERUM (ACETEST) NEGATIVE (NEGATIVE)
[2018-08-12] MEDS ORDERED: D5.45NS W/20 MEQ KCL 1,000 ML IV SCH (22:00)
[2018-08-12] MEDS ORDERED: POTASSIUM CHLOR 20 MEQ/100 ML 20 MEQ/100 ML BAG IV SCH (22:08)
--- NOTE | 2018-08-12 22:41 | CT Report ---
Reason: Eval for pancreatitis,give iv contrast, no oral Procedure Date: 08/12/2018 Accession Number: [id number] / [id number] Procedure: CT - Abdomen/Pelvis W/ CPT Code: FULL RESULT: EXAM: CT ABDOMEN AND PELVIS WITH CONTRAST. EXAM DATE: 08/12/2018 06:03 PM. CLINICAL HISTORY: Evaluate for pancreatitis, give IV contrast, no oral. COMPARISONS: Abdomen/pelvis with 12/04/2017 2:24 AM, abdomen/pelvis with 09/06/2015 11:46 AM. TECHNIQUE: Routine helical CT imaging was performed through the abdomen and pelvis. IV contrast: 75 mL Optiray 320. Enteric contrast: No. Reconstructions: Coronal and sagittal. In accordance with CT protocol optimization, one or more of the following dose reduction techniques were utilized for this exam: automated exposure control, adjustment of mA and/or KV based on patient size, or use of iterative reconstructive technique. FINDINGS: Lung Bases: There is a 4.5 x 3.7 cm mass-like focus of airspace consolidation medially in the left lower lobe. This demonstrates central fluid attenuation and is incompletely imaged on this exam. No right pleural effusion. Liver: No hepatic mass. Several mildly dilated intrahepatic bile ducts similar to the previous exam. Gallbladder/Bile Ducts: Unremarkable. Spleen: There is a 3.8 cm splenule versus adrenal gland mass anterior to the left kidney. This is stable. Status post splenectomy. Pancreas: Apparent resection of the pancreatic tail. Numerous pancreatic calcifications noted. No evidence of acute pancreatitis. Adrenal Glands: Normal right adrenal gland. The left adrenal gland is not well visualized noting probable splenule versus homogeneous mass, unchanged. Kidneys: Normal. No masses or hydronephrosis. Peritoneal Cavity/Bowel: Diverticulosis without diverticulitis. There is no small bowel obstruction. No fluid collections or pneumoperitoneum. The appendix is normal. Pelvic Organs: Small volume of pelvic fluid. No pelvic mass or lymphadenopathy. The urinary bladder is unremarkable. Vasculature: No aneurysm. There is chronic portal vein thrombosis with cavernous transformation. Bones: No significant abnormality. Other: None. IMPRESSION: 1. There is a 3.7 x 4.5 cm area of left lower lobe airspace disease, incompletely visualized on this exam; however suspicious for necrotizing pneumonia versus neoplasm. Chest CT recommended for complete visualization. 2. Chronic pancreatitis with no evidence of pancreatic mass or acute pancreatitis. 3. 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 4. Diverticulosis without diverticulitis or other acute inflammatory process. RAD[facility]
[2018-08-13] MEDS: ELECTROLYTE-A SOLUTION 1,000 ML IV SCH (00:28)
[2018-08-13] MEDS: NS W/20 MEQ KCL 1,000 ML IV SCH (02:20)
[2018-08-13] MEDS: SODIUM CHLORIDE FLUSH 0.9% 10 ML SYRINGE IVP SCH ×3 (02:20→17:43)
[2018-08-13 02:39] LABS: MAGNESIUM 2.6 mg/dL (1.7-2.8)
[2018-08-13 02:40] LABS: PHOSPHORUS < 1.0 mg/dL (2.5-4.6)
[2018-08-13] MEDS ORDERED: POTASSIUM CHLOR 20 MEQ/100 ML 20 MEQ/100 ML BAG IV ONE ×2 (02:45→02:58)
[2018-08-13] MEDS ORDERED: SODIUM CHLORIDE 0.9% 250 ML IV ONE (02:59)
[2018-08-13] MEDS: POTASSIUM PHOSPHATE 15 MMOL in SODIUM CHLORIDE 0.9% 250 ML IV SCH ×2 (03:02→07:16)
[2018-08-13 03:57] LABS: VBG PH 7.439 (7.31-7.41)
[2018-08-13 03:58] LABS: VBG PCO2 35.9 mmHg (41-51); VBG PO2 71.4 mmHg (25-47); VBG TOTAL CO2 24.9 mmol/L (24-29)
[2018-08-13 04:06] LABS: CALCIUM 7.6 mg/dL (8.5-10.3); CREATININE 0.4 mg/dL (0.4-1.0)
[2018-08-13] MEDS ORDERED: D5.45NS W/20 MEQ KCL 1,000 ML IV SCH (04:32)
[2018-08-13] MEDS ORDERED: INSULIN GLARGINE 300 UNIT/3 ML PEN SUBQ SCH ×2 (04:33→21:00)
[2018-08-13] MEDS: HYDROmorphone 0.5 MG/0.5 ML SYRINGE IVP PRN ×6 (04:56→22:10)
[2018-08-13 05:38] LABS: LIPASE 38 U/L (22-51)
[2018-08-13 05:39] LABS: PHOSPHORUS < 1.0 mg/dL (2.5-4.6)
[2018-08-13 05:44] LABS: KETONES, SERUM (ACETEST) NEGATIVE (NEGATIVE)
[2018-08-13] MEDS ORDERED: SODIUM CHLORIDE 0.9% 1,000 ML IV ONE (06:09)
[2018-08-13] MEDS: SODIUM CHLORIDE 0.9% 1,000 ML IV SCH ×4 (06:10→22:36)
[2018-08-13 06:13] LABS: BASOPHILS % (AUTO) 0.3 %; EOSINOPHILS % (AUTO) 0.2 %; HGB - HEMOGLOBIN 11.9 g/dL (12.0-16.0); LYMPHOCYTES # (AUTO) 1.7 10^3/uL (1.5-3.5); LYMPHOCYTES % (AUTO) 12.6 %; MEAN CORPUSCULAR HEMOGLOBIN 31.8 pg (27.0-31.0); MEAN CORPUSCULAR HGB CONC 34.3 g/dL (32.0-36.0); MEAN CORPUSCULAR VOLUME 92.6 fL (81.0-99.0); MEAN PLATELET VOLUME 10.5 fL (7.9-10.8); MONOCYTES # (AUTO) 0.8 10^3/uL (0.0-1.0); MONOCYTES % (AUTO) 6.1 %; NEUTROPHILS # (AUTO) 10.6 10^3/uL (1.5-6.6); NEUTROPHILS % (AUTO) 80.8 %; PLT - PLATELET COUNT 385 10^3/uL (130-450); RED BLOOD COUNT 3.74 10^6/uL (4.20-5.40); RED CELL DISTRIBUTION WIDTH 12.7 % (12.0-15.0); WHITE BLOOD COUNT 13.1 x10^3/uL (4.8-10.8)
[2018-08-13] MEDS: NICOTINE 14 MG PATCH TOP SCH (08:18)
[2018-08-13] MEDS: FAMOTIDINE 20 MG/50 ML 50 ML IV SCH ×2 (08:19→21:15)
[2018-08-13] MEDS: SODIUM CHLORIDE FLUSH 0.9% 10 ML SYRINGE IVP PRN ×2 (08:22→22:10)
[2018-08-13] MEDS ORDERED: INSULIN ASPART 300 UNIT/3 ML PEN SUBQ SCH ×2 (10:15→12:00)
--- NOTE | 2018-08-13 16:11 | PROVIDER PROGRESS NOTE ---
Assessment/Plan - Problem List (1) DKA (diabetic ketoacidoses) Qualifiers: Diabetes mellitus type: type 1 Diabetes mellitus complication detail: without coma Qualified Code(s): E10.10 - Type 1 diabetes mellitus with ketoacidosis without coma (2) Chronic alcoholic pancreatitis Assessment/Plan: The elevated Lipase has normalized and she has no complaints of abdominal pain today. He abdominal imaging showed changes in the pancreas consistent with chronic disease (and possibly previous pancreas surgery: missing tail of the pancreas). Will add daily po Thiamine. (3) Pneumonia Assessment/Plan: An incidental finding on abdomen CT was a lung infiltrate or tumor. The patient was told she may have a pneumonia and she said she wouldn't be surprised since she has felt sickly lately. Will obtain a chest CT, sputum and blood cultures and after obtained, start empiric antibiotics, to cover aspiration pneumonia and CAP. Follow WBC daily. (4) Polysubstance abuse Assessment/Plan: No withdrawal symptoms currently. (5) Tobacco dependence Assessment/Plan: Pt on a Nicotine patch (6) Non-compliance Assessment/Plan: She admits to not taking her meds but cannot remember the details of how long. Will request Social Work to get involved regarding her living situation, etc. (7) Cachexia Assessment/Plan: Her BMI is 18, but this is not new. She describes needing help with meals, discussed this with Social Work. - Current Meds Current Meds: Current Medications Generic Name Dose Route Start Last Admin Trade Name Freq PRN Reason Stop Dose Admin Hydromorphone HCl 0.5 mg 08/12/18 16:18 08/13/18 15:32 Dilaudid Inj Syringe IVP 0.5 mg Q3H PRN Administration Pain 8 to 10 Famotidine 50 mls @ 100 mls/hr 08/12/18 21:00 08/13/18 08:49 Pepcid 20 Mg/50 Ml IV Infused BID BRENDON Infusion Sodium Chloride 1,000 mls @ 125 mls/hr 08/13/18 07:00 08/13/18 15:00 Normal Saline 0.9% IV 125 mls/hr .Q8H BRENDON Infusion Insulin Glargine 5 unit 08/13/18 04:33 08/13/18 04:52 Lantus Solostar SUBQ 5 unit QPM BRENDON Administration Nicotine 1 patch 08/12/18 16:34 08/13/18 08:18 Nicoderm TOP 1 patch DAILY BRENDON Administration Prochlorperazine Edisylate 10 mg 08/12/18 16:18 08/12/18 18:19 Compazine Inj IVP 10 mg Q6HR PRN Administration Nausea / Vomiting Sodium Chloride 10 ml 08/12/18 17:00 08/13/18 08:21 Normal Saline Flush 0.9% IVP 10 ml 0100,0900,1700 BRENDON Administration Sodium Chloride 10 ml 08/12/18 16:18 08/13/18 08:22 Normal Saline Flush 0.9% IVP 10 ml PRN PRN Administration NEEDED PER PROVIDER ORDERS - Lab Result Fish Bone Diagrams: 08/13/18 05:25 08/13/18 03:45 - Additional Planning My Orders: My Active Orders 08/12/18 16:18 Activity Orders [RC] Q2HR Daily Weight [RC] 0600 IO [RC] Q1HR Initiate Bowel Care Protocol [RC] QSHIFT Initiate ICU Electrolyte Prot. [RC] .protocol Initiate Line Care Protocol [RC] .protocol Initiate Personal Care Protoco [RC] .protocol Vital Signs [RC] Q1HR HYDROmorphone INJ SYRINGE [Dilaudid Inj Syringe] 0.5 mg IVP Q3H PRN Ondansetron Inj [Zofran Inj] 4 mg IVP Q6HR PRN Prochlorperazine Inj [Compazine Inj] 10 mg IVP Q6HR PRN Sodium Chloride Flush 0.9% [Normal Saline Flush 0.9%] 10 ml IVP PRN PRN Condition of Patient [OTHERS] Routine DVT Prophylaxis [OTHERS] Routine 08/12/18 16:21 Oral Care - Nursing [RC] Routine Oxygen Therapy [RC] .PRN SCDs [RC] QSHIFT Turn and Reposition [RC] Routine 08/12/18 16:23 Acetaminophen [Tylenol] 650 mg PO Q4HR PRN 08/12/18 16:24 Initiate Hypoglycemia Protocol [RC] .protocol Code Status [OTHERS] Routine 08/12/18 16:25 Notify Provider - Specific Ins [RC] PRN 08/12/18 16:26 [place] Insertion [RC] Routine 08/12/18 16:34 Nicotine 14 mg Patch [Nicoderm] 1 patch TOP DAILY 08/12/18 17:00 Sodium Chloride Flush 0.9% [Normal Saline Flush 0.9%] 10 ml IVP 0100,0900,1700 08/12/18 21:00 Famotidine 20 mg/50 ml [Pepcid 20 mg/50 ml] 50 ml IV BID 08/13/18 Evaluate and Treat OT [OT] Routine Evaluate and Treat PT [PT] Routine 08/13/18 08:38 Blood Glucose Checks - Eating [RC] 0800,1200,1700,2100 08/13/18 17:00 Insulin Aspart [NovoLOG] 3 - 11 unit SUBQ 0800,1200,1700,2100 08/14/18 05:00 CBC - COMP BLD CT W/AUTO DIFF [HEME] DAILYLAB CMP [COMPREHENSIVE METABOLIC PANEL] [CHEM] DAILYLAB 08/15/18 05:00 CBC - COMP BLD CT W/AUTO DIFF [HEME] DAILYLAB CMP [COMPREHENSIVE METABOLIC PANEL] [CHEM] DAILYLAB 08/16/18 05:00 CMP [COMPREHENSIVE METABOLIC PANEL] [CHEM] DAILYLAB Subjective - Subjective Patient Reports: Feeling Better, Fatigue Nursing Reports: Other (Sitti ng up in a chair, has good apetite, no nausea, eating solids.) Objective Vital Signs: Vital Signs - 24 hr 08/12/18 08/12/18 08/12/18 17:38 18:20 21:00 Temperature 37.1 C Heart Rate Heart Rate [ Activity] Heart Rate [ 74 73 75 Monitoring electrodes] Heart Rate [ Supine] Respiratory 9 L 12 16 Rate Blood Pressure [Activity] Blood Pressure 131/77 H 136/73 H 143/81 H [Right Brachial artery] Blood Pressure [Supine] O2 Saturation 100 100 95 08/12/18 08/13/18 08/13/18 23:00 00:00 01:00 Temperature 37.1 C 37.1 C Heart Rate Heart Rate [ Activity] Heart Rate [ 86 85 94 Monitoring electrodes] Heart Rate [ Supine] Respiratory 13 9 L 15 Rate Blood Pressure [Activity] Blood Pressure 128/79 146/83 H 136/75 H [Right Brachial artery] Blood Pressure [Supine] O2 Saturation 96 96 95 08/13/18 08/13/18 08/13/18 02:03 03:00 04:00 Temperature Heart Rate Heart Rate [ Activity] Heart Rate [ 88 84 80 Monitoring electrodes] Heart Rate [ Supine] Respiratory 12 10 L 18 Rate Blood Pressure [Activity] Blood Pressure 120/79 146/86 H 135/86 H [Right Brachial artery] Blood Pressure [Supine] O2 Saturation 96 96 96 08/13/18 08/13/18 08/13/18 04:27 05:00 06:00 Temperature 37.1 C Heart Rate 84 Heart Rate [ Activity] Heart Rate [ 75 86 Monitoring electrodes] Heart Rate [ Supine] Respiratory 10 L 10 L 18 Rate Blood Pressure [Activity] Blood Pressure 169/92 H 144/85 H [Right Brachial artery] Blood Pressure [Supine] O2 Saturation 96 97 96 08/13/18 08/13/18 08/13/18 07:00 08:00 10:00 Temperature 36.5 C Heart Rate Heart Rate [ Activity] Heart Rate [ 84 89 79 Monitoring electrodes] Heart Rate [ Supine] Respiratory 19 18 16 Rate Blood Pressure [Activity] Blood Pressure 135/89 H 132/90 H 140/87 H [Right Brachial artery] Blood Pressure [Supine] O2 Saturation 95 99 96 08/13/18 08/13/18 08/13/18 11:00 11:30 12:00 Temperature Heart Rate Heart Rate [ 91 Activity] Heart Rate [ 82 102 H Monitoring electrodes] Heart Rate [ 92 Supine] Respiratory 16 12 Rate Blood Pressure 132/91 H [Activity] Blood Pressure 142/90 H 122/94 H [Right Brachial artery] Blood Pressure 142/90 H [Supine] O2 Saturation 96 96 08/13/18 08/13/18 08/13/18 13:00 14:00 15:00 Temperature 37.1 C Heart Rate Heart Rate [ Activity] Heart Rate [ 74 80 88 Monitoring electrodes] Heart Rate [ Supine] Respiratory 13 17 16 Rate Blood Pressure [Activity] Blood Pressure 153/98 H 150/92 H 147/92 H [Right Brachial artery] Blood Pressure [Supine] O2 Saturation 100 98 96 Oxygen O2 Source Room air I&O (Last 24 Hrs): Intake and Output Totals x24h 08/11/18 08/12/18 08/13/18 23:59 23:59 23:59 Intake Total 2105.052 5694.082 Output Total 500 1675 Balance 9100.942 9678.082 General: Alert, Oriented x3, Other (Appears tired) HEENT: Other ([place], tanned skin of exposed surfaces.) Neck: Supple, No JVD Neuro: Non Focal Cardiovascular: Regular rate, No murmurs Respiratory: No respiratory distress, Breath sounds nml Abdomen: Soft Extremities: No edema - Results Results: Laboratory Results WBC 13.1 x10^3/uL (4.8-10.8) H 08/13/18 05:25 RBC 3.74 10^6/uL (4.20-5.40) L 08/13/18 05:25 Hgb 11.9 g/dL (12.0-16.0) L 08/13/18 05:25 Hct 34.6 % (37.0-47.0) L 08/13/18 05:25 MCV 92.6 fL (81.0-99.0) 08/13/18 05:25 MCH 31.8 pg (27.0-31.0) H 08/13/18 05:25 MCHC 34.3 g/dL (32.0-36.0) 08/13/18 05:25 RDW 12.7 % (12.0-15.0) 08/13/18 05:25 Plt Count 385 10^3/uL (130-450) 08/13/18 05:25 MPV 10.5 fL (7.9-10.8) 08/13/18 05:25 Neut # (Auto) 10.6 10^3/uL (1.5-6.6) H 08/13/18 05:25 Lymph # (Auto) 1.7 10^3/uL (1.5-3.5) 08/13/18 05:25 Smyth # (Auto) 0.8 10^3/uL (0.0-1.0) 08/13/18 05:25 Eos # (Auto) 0.0 10^3/uL (0.0-0.7) 08/13/18 05:25 Baso # (Auto) 0.0 10^3/uL (0.0-0.1) 08/13/18 05:25 Absolute Nucleated RBC 0.00 x10^3/uL 08/13/18 05:25 Nucleated RBC % 0.0 /100WBC 08/13/18 05:25 VBG pH 7.439 (7.31-7.41) H 08/13/18 03:45 VBG pCO2 35.9 mmHg (41-51) L 08/13/18 03:45 VBG pO2 71.4 mmHg (25-47) H 08/13/18 03:45 VBG HCO3 23.8 mmol/L (23-28) 08/13/18 03:45 VBG Total CO2 24.9 mmol/L (24-29) 08/13/18 03:45 VBG O2 Saturation 95.0 % (60-80) H 08/13/18 03:45 VBG Base Excess 0.0 mmol/L (-2 - +2) 08/13/18 03:45 Sodium 130 mmol/L (135-145) L 08/13/18 03:45 Potassium 3.6 mmol/L (3.5-5.0) 08/13/18 03:45 Chloride 100 mmol/L (101-111) L 08/13/18 03:45 Carbon Dioxide 24 mmol/L (21-32) 08/13/18 03:45 Anion Gap 6.0 (6-13) 08/13/18 03:45 BUN 9 mg/dL (6-20) 08/13/18 03:45 Creatinine 0.4 mg/dL (0.4-1.0) 08/13/18 03:45 Estimated GFR (MDRD) 168 (>89) 08/13/18 03:45 Glucose 139 mg/dL (70-100) H 08/13/18 03:45 Glycated Hemoglobin 16.4 % (4.6-6.2) H 08/12/18 11:26 Estim Average Glucose 424 (70-100) H 08/12/18 11:26 Calcium 7.6 mg/dL (8.5-10.3) L 08/13/18 03:45 Phosphorus < 1.0 mg/dL (2.5-4.6) L* 08/13/18 02:15 Magnesium 2.6 mg/dL (1.7-2.8) 08/13/18 02:15 Total Bilirubin 2.2 mg/dL (0.2-1.0) H 08/12/18 11:26 AST 23 IU/L (10-42) 08/12/18 11:26 ALT 28 IU/L (10-60) 08/12/18 11:26 Alkaline Phosphatase 289 IU/L (42-121) H 08/12/18 11:26 Total Protein 8.2 g/dL (6.7-8.2) 08/12/18 11:26 Albumin 2.1 g/dL (3.2-5.5) L 08/13/18 03:45 Globulin 5.6 g/dL (2.1-4.2) H 08/12/18 11:26 Albumin/Globulin Ratio 0.5 (1.0-2.2) L 08/12/18 11:26 Triglycerides 94 mg/dL (-149) 08/12/18 16:55 Lipase 38 U/L (22-51) 08/13/18 02:15 Urine Color YELLOW 08/12/18 11:45 Urine Clarity CLEAR (CLEAR) 08/12/18 11:45 Urine pH 5.5 PH (5.0-7.5) 08/12/18 11:45 Ur Specific Goodwin >=1.030 (1.002-1.030) H 08/12/18 11:45 Urine Protein NEGATIVE mg/dL (NEGATIVE) 08/12/18 11:45 Urine Glucose (UA) >=1000 mg/dL (NEGATIVE) H 08/12/18 11:45 Urine Ketones >=80 mg/dL (NEGATIVE) H 08/12/18 11:45 Urine Occult Blood NEGATIVE (NEGATIVE) 08/12/18 11:45 Urine Nitrite NEGATIVE (NEGATIVE) 08/12/18 11:45 Urine Bilirubin NEGATIVE (NEGATIVE) 08/12/18 11:45 Urine Urobilinogen 0.2 (NORMAL) E.U./dL (NORMAL) 08/12/18 11:45 Ur Leukocyte Esterase NEGATIVE (NEGATIVE) 08/12/18 11:45 Ur Microscopic Review NOT INDICATED 08/12/18 11:45 Urine Culture Comments NOT INDICATED 08/12/18 11:45 Urine HCG, Qual NEGATIVE 08/12/18 11:45 Urine Opiates Screen NEGATIVE (NEGATIVE) 08/12/18 11:45 Ur Oxycodone Screen NEGATIVE (NEGATIVE) 08/12/18 11:45 Urine Methadone Screen NEGATIVE (NEGATIVE) 08/12/18 11:45 Ur Propoxyphene Screen NEGATIVE (NEGATIVE) 08/12/18 11:45 Ur Barbiturates Screen NEGATIVE (NEGATIVE) 08/12/18 11:45 Ur Tricyclics Screen NEGATIVE (NEGATIVE) 08/12/18 11:45 Ur Phencyclidine Scrn NEGATIVE (NEGATIVE) 08/12/18 11:45 Ur Amphetamine Screen NEGATIVE (NEGATIVE) 08/12/18 11:45 U Methamphetamines Scrn NEGATIVE (NEGATIVE) 08/12/18 11:45 U Benzodiazepines Scrn NEGATIVE (NEGATIVE) 08/12/18 11:45 Urine Cocaine Screen NEGATIVE (NEGATIVE) 08/12/18 11:45 U Cannabinoids Screen POSITIVE (NEGATIVE) H 08/12/18 11:45 Ethyl Alcohol < 5.0 mg/dL 08/12/18 11:26 Serum Ketones NEGATIVE (NEGATIVE) 08/13/18 03:45 MRSA Surveill Initial NEGATIVE (NEGATIVE) 08/12/18 17:34
[2018-08-13] MEDS: SACCHAROMYCES BOULARDII 250 MG CAPSULE PO SCH (17:44)
[2018-08-13] MEDS: INSULIN ASPART 300 UNIT/3 ML PEN SUBQ SCH ×4 (17:51→21:17)
[2018-08-13] MEDS ORDERED: AZITHROMYCIN INJ 500 MG in SODIUM CHLORIDE 0.9% 250 ML IV SCH (18:00)
[2018-08-13] MEDS ORDERED: IOVERSOL 320 100 ML VIAL IVP ONE (18:26)
[2018-08-13] MEDS: cefTRIAXone 1 GM in SODIUM CHLORIDE 0.9% MINIBAG 100 ML IV SCH (18:40)
[2018-08-13] MEDS: NEUTRA-PHOS 250 MG TABLET PO SCH ×2 (20:13→22:10)
--- NOTE | 2018-08-13 20:20 | CT Report ---
Reason: eval for pneumonia or tumor (seen on abnor abd CT) Procedure Date: 08/13/2018 Accession Number: [id number] / [id number] Procedure: CT - Chest W/ CPT Code: FULL RESULT: EXAM: CT CHEST WITH CONTRAST. EXAM DATE: 08/13/2018 07:20 PM. CLINICAL HISTORY: Evaluate for pneumonia or tumor (seen on abnormal abdomen CT). COMPARISONS: Chest without 12/30/2017 6:15 AM, abdomen/pelvis with 08/12/2018 5:54 PM, 08/12/2018 CT abdomen. TECHNIQUE: Routine helical CT imaging was performed through the chest. IV contrast: 75 mL Optiray 320. Reconstructions: Coronal and sagittal. In accordance with CT protocol optimization, one or more of the following dose reduction techniques were utilized for this exam: automated exposure control, adjustment of mA and/or KV based on patient size, or use of iterative reconstructive technique. FINDINGS: Lungs/Pleura: There is a 7.3 x 4.2 x 5.8 cm area of airspace disease in the left lower lobe containing air-fluid levels. There is surrounding interstitial thickening of the bronchovascular bundles with surrounding nodular groundglass opacities. A second 3.5 x 3.3 cm focus of mass-like consolidation is also seen in the left upper lobe with central fluid density. There is trace left pleural effusion. No pneumothorax. The right lung is clear. Mediastinum: Normal. No adenopathy or masses. The heart and great vessels are normal. Bones: Unremarkable. Visualized Abdomen: There is mild ascites. Other: None. IMPRESSION: 1. There is an extensive area of airspace disease involving the left lower lobe with central air-fluid levels most likely representing necrotizing pneumonia. A second smaller focus of left upper lobe mass-like consolidation is also seen. No associated lymphadenopathy. Because malignancy remains a differential consideration, close clinical and radiographic follow-up recommended after appropriate treatment interval to confirm resolution. [facility]
[2018-08-13] MEDS: CLINDAMYCIN 600 MG/50 ML 50 ML IV SCH ×2 (21:15→23:45)
[2018-08-13] MEDS: INSULIN GLARGINE 300 UNIT/3 ML PEN SUBQ SCH (21:16)
[2018-08-14] MEDS: SODIUM CHLORIDE FLUSH 0.9% 10 ML SYRINGE IVP SCH ×4 (01:08→16:36)
[2018-08-14] MEDS: HYDROmorphone 0.5 MG/0.5 ML SYRINGE IVP PRN ×8 (01:08→22:30)
[2018-08-14] MEDS: CLINDAMYCIN 600 MG/50 ML 50 ML IV SCH ×3 (05:35→18:38)
[2018-08-14] MEDS: SODIUM CHLORIDE FLUSH 0.9% 10 ML SYRINGE IVP PRN ×2 (05:35→10:09)
[2018-08-14 06:23] LABS: ALBUMIN 1.8 g/dL (3.2-5.5); ALBUMIN/GLOBULIN RATIO 0.4 (1.0-2.2); BILIRUBIN,TOTAL 0.3 mg/dL (0.2-1.0); CALCIUM 7.1 mg/dL (8.5-10.3); CREATININE 0.5 mg/dL (0.4-1.0); MAGNESIUM 1.4 mg/dL (1.7-2.8); PHOSPHORUS 1.7 mg/dL (2.5-4.6); TOTAL PROTEIN 6.1 g/dL (6.7-8.2)
[2018-08-14 06:33] LABS: BASOPHILS # (AUTO) 0.1 10^3/uL (0.0-0.1); BASOPHILS % (AUTO) 0.8 %; EOSINOPHILS % (AUTO) 0.3 %; HGB - HEMOGLOBIN 11.8 g/dL (12.0-16.0); LYMPHOCYTES % (AUTO) 25.2 %; MEAN CORPUSCULAR HEMOGLOBIN 31.9 pg (27.0-31.0); MEAN CORPUSCULAR HGB CONC 33.4 g/dL (32.0-36.0); MEAN CORPUSCULAR VOLUME 95.6 fL (81.0-99.0); MEAN PLATELET VOLUME 10.7 fL (7.9-10.8); MONOCYTES # (AUTO) 0.5 10^3/uL (0.0-1.0); MONOCYTES % (AUTO) 6.7 %; NEUTROPHILS # (AUTO) 5.3 10^3/uL (1.5-6.6); PLT - PLATELET COUNT 262 10^3/uL (130-450); RED CELL DISTRIBUTION WIDTH 13.2 % (12.0-15.0); WHITE BLOOD COUNT 7.9 x10^3/uL (4.8-10.8)
[2018-08-14] MEDS: SODIUM CHLORIDE 0.9% 1,000 ML IV SCH ×2 (07:26→16:36)
--- NOTE | 2018-08-14 07:58 | PROVIDER PROGRESS NOTE ---
Assessment/Plan - Problem List (1) Necrotizing pneumonia Assessment/Plan: The chest CT done last night showed LLL and DARCY infiltrates with central areas containing air/fluid levels consistent with necrotizing PNA, no evidence of abscess or empyema. Sputum sample was sent for culture. Will continue iv Ceftriaxone and iv Clinda (per UpToDate), but stop Zithromax. She will need a 7-10 day total course of antibiotics, which will transition to oral antibiotics when she shows clinicla improvement. Will add Mucinex for pulmonary toilet and nebs prn. 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 (3) Chronic alcoholic pancreatitis Assessment/Plan: Stable (4) Polysubstance abuse Assessment/Plan: No withdrawal signs (5) Tobacco dependence Assessment/Plan: Stable on Nicotine patch. I discussed smoking cessation with patient and she was receptive and motivated. (6) Non-compliance Assessment/Plan: She seems motivated to be on proper treatment. (7) Cachexia Assessment/Plan: Social Work is getting assistance form her Insurance provider to give her supportive services. (8) DKA (diabetic ketoacidoses) Qualifiers: Diabetes mellitus type: type 1 Diabetes mellitus complication detail: without coma Qualified Code(s): E10.10 - Type 1 diabetes mellitus with ketoacidosis without coma Assessment/Plan: Resolved. I now suspect the infection plus no DM meds caused this first episode of DKA. Pt will move out of ICU today and all iv meds to po, except iv antibiotics. - Current Meds Current Meds: Current Medications Generic Name Dose Route Start Last Admin Trade Name Freq PRN Reason Stop Dose Admin Hydromorphone HCl 0.5 mg 08/12/18 16:18 08/14/18 07:26 Dilaudid Inj Syringe IVP 0.5 mg Q3H PRN Administration Pain 8 to 10 Famotidine 50 mls @ 100 mls/hr 08/12/18 21:00 08/13/18 21:50 Pepcid 20 Mg/50 Ml IV Infused BID BRENDON Infusion Sodium Chloride 1,000 mls @ 125 mls/hr 08/13/18 07:00 08/14/18 07:26 Normal Saline 0.9% IV 125 mls/hr .Q8H BRENDON Administration Azithromycin 500 mg/ Sodium 250 mls @ 250 mls/hr 08/13/18 18:00 08/13/18 18:45 Chloride IV Infused DAILY BR[facility]ON Infusion Ceftriaxone Sodium 1 gm/ 100 mls @ 200 mls/hr 08/13/18 19:00 08/13/18 19:10 Sodium Chloride IV Infused DAILY BR[facility]ON Infusion Clindamycin Phosphate 50 mls @ 100 mls/hr 08/13/18 21:00 08/14/18 06:10 Cleocin 600 Mg/50 Ml IV Infused Q6HR BRENDON Infusion Insulin Aspart 3 - 11 unit 08/13/18 17:00 08/13/18 21:17 Novolog SUBQ 11 unit 0800,1200,1700,2100 BRENDON Administration Protocol Insulin Aspart 3 unit 08/13/18 17:36 08/13/18 17:53 Novolog SUBQ 3 unit TIDWM BRENDON Administration Protocol Insulin Glargine 20 unit 08/13/18 21:00 08/13/18 21:16 Lantus Solostar SUBQ 20 unit QPM BRENDON Administration Nicotine 1 patch 08/12/18 16:34 08/13/18 08:18 Nicoderm TOP 1 patch DAILY BRENDON Administration Prochlorperazine Edisylate 10 mg 08/12/18 16:18 08/12/18 18:19 Compazine Inj IVP 10 mg Q6HR PRN Administration Nausea / Vomiting Saccharomyces Boulardii 250 mg 08/13/18 17:00 08/13/18 17:44 Florastor PO 250 mg BIDWM BRENDON Administration Sodium Chloride 10 ml 08/12/18 17:00 08/14/18 04:07 Normal Saline Flush 0.9% IVP 10 ml 0100,0900,1700 BRENDON Administration Sodium Chloride 10 ml 08/12/18 16:18 08/13/18 22:10 Normal Saline Flush 0.9% IVP 10 ml PRN PRN Administration NEEDED PER PROVIDER ORDERS Sodium Chloride 20 ml 08/13/18 16:31 08/14/18 05:35 Normal Saline Flush 0.9% IVP 20 ml PRN PRN Administration After Blood Draw - Lab Result Fish Bone Diagrams: 08/14/18 05:48 08/14/18 05:48 - Additional Planning My Orders: My Active Orders 08/13/18 08:38 Blood Glucose Checks - Eating [RC] 0800,1200,1700,2100 08/13/18 16:31 Sodium Chloride Flush 0.9% [Normal Saline Flush 0.9%] 20 ml IVP PRN PRN 08/13/18 17:00 Insulin Aspart [NovoLOG] 3 - 11 unit SUBQ 0800,1200,1700,2100 Saccharomyces Boulardii [Florastor] 250 mg PO BIDWM 08/13/18 17:12 CULTURE, BLOOD #1 [RM] Urgent 08/13/18 17:13 CULTURE, BLOOD #2 [RM] Urgent 08/13/18 17:36 Insulin Aspart [NovoLOG] 3 unit SUBQ TIDWM 08/13/18 18:00 Azithromycin Inj [Zithromax Inj] 500 mg Sodium Chloride 0.9% [Normal Saline 0.9%] 250 ml IV DAILY 08/13/18 19:00 cefTRIAXone [Rocephin] 1 gm Sodium Chloride 0.9% Minibag [Normal Saline 0.9% Minibag] 100 ml IV DAILY 08/13/18 21:00 Clindamycin 600 mg/50 ml [Cleocin 600 mg/50 ml] 50 ml IV Q6HR 08/15/18 05:00 CBC - COMP BLD CT W/AUTO DIFF [HEME] DAILYLAB CMP [COMPREHENSIVE METABOLIC PANEL] [CHEM] DAILYLAB 08/16/18 05:00 CMP [COMPREHENSIVE METABOLIC PANEL] [CHEM] DAILYLAB Subjective - Subjective Patient Reports: Feeling Better, Resting Comfortably, Cough Nursing Reports: Other (Good apetite and no nausea) Objective Vital Signs: Vital Signs - 24 hr 08/13/18 08/13/18 08/13/18 08:00 10:00 11:00 Temperature 36.5 C Heart Rate [ Activity] Heart Rate [ 89 79 82 Monitoring electrodes] Heart Rate [ Supine] Respiratory 18 16 16 Rate Blood Pressure [Activity] Blood Pressure 132/90 H 140/87 H 142/90 H [Right Brachial artery] Blood Pressure [Supine] O2 Saturation 99 96 96 08/13/18 08/13/18 08/13/18 11:30 12:00 13:00 Temperature Heart Rate [ 91 Activity] Heart Rate [ 102 H 74 Monitoring electrodes] Heart Rate [ 92 Supine] Respiratory 12 13 Rate Blood Pressure 132/91 H [Activity] Blood Pressure 122/94 H 153/98 H [Right Brachial artery] Blood Pressure 142/90 H [Supine] O2 Saturation 96 100 08/13/18 08/13/18 08/13/18 14:00 15:00 16:00 Temperature 37.1 C 37.5 C Heart Rate [ Activity] Heart Rate [ 80 88 84 Monitoring electrodes] Heart Rate [ Supine] Respiratory 17 16 17 Rate Blood Pressure [Activity] Blood Pressure 150/92 H 147/92 H 143/97 H [Right Brachial artery] Blood Pressure [Supine] O2 Saturation 98 96 97 08/13/18 08/13/18 08/13/18 17:00 18:00 19:00 Temperature 37.4 C Heart Rate [ Activity] Heart Rate [ 103 H 89 87 Monitoring electrodes] Heart Rate [ Supine] Respiratory 16 16 16 Rate Blood Pressure [Activity] Blood Pressure 151/93 H 147/95 H 138/89 H [Right Brachial artery] Blood Pressure [Supine] O2 Saturation 97 100 08/13/18 08/13/18 08/13/18 20:00 21:00 22:00 Temperature Heart Rate [ Activity] Heart Rate [ 92 83 94 Monitoring electrodes] Heart Rate [ Supine] Respiratory 12 15 15 Rate Blood Pressure [Activity] Blood Pressure 136/94 H 156/88 H 127/80 [Right Brachial artery] Blood Pressure [Supine] O2 Saturation 94 98 99 08/13/18 08/14/18 08/14/18 23:00 00:00 01:00 Temperature Heart Rate [ Activity] Heart Rate [ 88 89 82 Monitoring electrodes] Heart Rate [ Supine] Respiratory 16 15 11 L Rate Blood Pressure [Activity] Blood Pressure 142/86 H 137/83 H 137/85 H [Right Brachial artery] Blood Pressure [Supine] O2 Saturation 99 99 99 08/14/18 08/14/18 08/14/18 02:00 03:00 04:00 Temperature Heart Rate [ Activity] Heart Rate [ 87 86 89 Monitoring electrodes] Heart Rate [ Supine] Respiratory 18 14 17 Rate Blood Pressure [Activity] Blood Pressure 135/78 H 136/83 H 141/90 H [Right Brachial artery] Blood Pressure [Supine] O2 Saturation 95 96 95 08/14/18 08/14/18 08/14/18 05:00 06:00 07:00 Temperature 36.8 C Heart Rate [ Activity] Heart Rate [ 83 81 82 Monitoring electrodes] Heart Rate [ Supine] Respiratory 14 14 12 Rate Blood Pressure [Activity] Blood Pressure 128/89 H 139/90 H 134/92 H [Right Brachial artery] Blood Pressure [Supine] O2 Saturation 96 96 98 Oxygen O2 Source Room air I&O (Last 24 Hrs): Intake and Output Totals x24h 08/12/18 08/13/18 08/14/18 23:59 23:59 23:59 Intake Total 2105.052 7940.499 1420 Output Total 500 2825 950 Balance 7887.525 4936.499 470 General: Alert, Oriented x3 HEENT: Mucous membr. moist/pink Neck: Supple Neuro: Non Focal Cardiovascular: Regular rate, No murmurs Respiratory: Other (L base diminished, no wheezes or rales.) Abdomen: Soft Extremities: No edema - Results Results: Laboratory Results WBC 7.9 x10^3/uL (4.8-10.8) 08/14/18 05:48 RBC 3.70 10^6/uL (4.20-5.40) L 08/14/18 05:48 Hgb 11.8 g/dL (12.0-16.0) L 08/14/18 05:48 Hct 35.4 % (37.0-47.0) L 08/14/18 05:48 MCV 95.6 fL (81.0-99.0) 08/14/18 05:48 MCH 31.9 pg (27.0-31.0) H 08/14/18 05:48 MCHC 33.4 g/dL (32.0-36.0) 08/14/18 05:48 RDW 13.2 % (12.0-15.0) 08/14/18 05:48 Plt Count 262 10^3/uL (130-450) 08/14/18 05:48 MPV 10.7 fL (7.9-10.8) 08/14/18 05:48 Neut # (Auto) 5.3 10^3/uL (1.5-6.6) 08/14/18 05:48 Lymph # (Auto) 2.0 10^3/uL (1.5-3.5) 08/14/18 05:48 [place] # (Auto) 0.5 10^3/uL (0.0-1.0) 08/14/18 05:48 Eos # (Auto) 0.0 10^3/uL (0.0-0.7) 08/14/18 05:48 Baso # (Auto) 0.1 10^3/uL (0.0-0.1) 08/14/18 05:48 Absolute Nucleated RBC 0.00 x10^3/uL 08/14/18 05:48 Nucleated RBC % 0.0 /100WBC 08/14/18 05:48 VBG pH 7.439 (7.31-7.41) H 08/13/18 03:45 VBG pCO2 35.9 mmHg (41-51) L 08/13/18 03:45 VBG pO2 71.4 mmHg (25-47) H 08/13/18 03:45 VBG HCO3 23.8 mmol/L (23-28) 08/13/18 03:45 VBG Total CO2 24.9 mmol/L (24-29) 08/13/18 03:45 VBG O2 Saturation 95.0 % (60-80) H 08/13/18 03:45 VBG Base Excess 0.0 mmol/L (-2 - +2) 08/13/18 03:45 Sodium 128 mmol/L (135-145) L 08/14/18 05:48 Potassium 3.0 mmol/L (3.5-5.0) L 08/14/18 05:48 Chloride 98 mmol/L (101-111) L 08/14/18 05:48 Carbon Dioxide 25 mmol/L (21-32) 08/14/18 05:48 Anion Gap 5.0 (6-13) L 08/14/18 05:48 BUN 7 mg/dL (6-20) 08/14/18 05:48 Creatinine 0.5 mg/dL (0.4-1.0) 08/14/18 05:48 Estimated GFR (MDRD) 130 (>89) 08/14/18 05:48 Glucose 152 mg/dL (70-100) H 08/14/18 05:48 POC Whole Bld Glucose 126 mg/dL (70 - 100) H 08/14/18 07:43 Glycated Hemoglobin 16.4 % (4.6-6.2) H 08/12/18 11:26 Estim Average Glucose 424 (70-100) H 08/12/18 11:26 Calcium 7.1 mg/dL (8.5-10.3) L 08/14/18 05:48 Phosphorus 1.7 mg/dL (2.5-4.6) L 08/14/18 05:48 Magnesium 1.4 mg/dL (1.7-2.8) L 08/14/18 05:48 Total Bilirubin 0.3 mg/dL (0.2-1.0) 08/14/18 05:48 AST 35 IU/L (10-42) 08/14/18 05:48 ALT 24 IU/L (10-60) 08/14/18 05:48 Alkaline Phosphatase 218 IU/L (42-121) H 08/14/18 05:48 Total Protein 6.1 g/dL (6.7-8.2) L 08/14/18 05:48 Albumin 1.8 g/dL (3.2-5.5) L 08/14/18 05:48 Globulin 4.3 g/dL (2.1-4.2) H 08/14/18 05:48 Albumin/Globulin Ratio 0.4 (1.0-2.2) L 08/14/18 05:48 Triglycerides 94 mg/dL (-149) 08/12/18 16:55 Lipase 38 U/L (22-51) 08/13/18 02:15 Urine Color YELLOW 08/12/18 11:45 Urine Clarity CLEAR (CLEAR) 08/12/18 11:45 Urine pH 5.5 PH (5.0-7.5) 08/12/18 11:45 Ur Specific [place] >=1.030 (1.002-1.030) H 08/12/18 11:45 Urine Protein NEGATIVE mg/dL (NEGATIVE) 08/12/18 11:45 Urine Glucose (UA) >=1000 mg/dL (NEGATIVE) H 08/12/18 11:45 Urine Ketones >=80 mg/dL (NEGATIVE) H 08/12/18 11:45 Urine Occult Blood NEGATIVE (NEGATIVE) 08/12/18 11:45 Urine Nitrite NEGATIVE (NEGATIVE) 08/12/18 11:45 Urine Bilirubin NEGATIVE (NEGATIVE) 08/12/18 11:45 Urine Urobilinogen 0.2 (NORMAL) E.U./dL (NORMAL) 08/12/18 11:45 Ur Leukocyte Esterase NEGATIVE (NEGATIVE) 08/12/18 11:45 Ur Microscopic Review NOT INDICATED 08/12/18 11:45 Urine Culture Comments NOT INDICATED 08/12/18 11:45 Urine HCG, Qual NEGATIVE 08/12/18 11:45 Urine Opiates Screen NEGATIVE (NEGATIVE) 08/12/18 11:45 Ur Oxycodone Screen NEGATIVE (NEGATIVE) 08/12/18 11:45 Urine Methadone Screen NEGATIVE (NEGATIVE) 08/12/18 11:45 Ur Propoxyphene Screen NEGATIVE (NEGATIVE) 08/12/18 11:45 Ur Barbiturates Screen NEGATIVE (NEGATIVE) 08/12/18 11:45 Ur Tricyclics Screen NEGATIVE (NEGATIVE) 08/12/18 11:45 Ur Phencyclidine Scrn NEGATIVE (NEGATIVE) 08/12/18 11:45 Ur Amphetamine Screen NEGATIVE (NEGATIVE) 08/12/18 11:45 U Methamphetamines Scrn NEGATIVE (NEGATIVE) 08/12/18 11:45 U Benzodiazepines Scrn NEGATIVE (NEGATIVE) 08/12/18 11:45 Urine Cocaine Screen NEGATIVE (NEGATIVE) 08/12/18 11:45 U Cannabinoids Screen POSITIVE (NEGATIVE) H 08/12/18 11:45 Ethyl Alcohol < 5.0 mg/dL 08/12/18 11:26 Serum Ketones NEGATIVE (NEGATIVE) 08/13/18 03:45 MRSA Surveill Initial NEGATIVE (NEGATIVE) 08/12/18 17:34
[2018-08-14] MEDS ORDERED: INSULIN ASPART 300 UNIT/3 ML PEN SUBQ SCH (08:00)
[2018-08-14] MEDS ORDERED: IPRATROPIUM/ALBUTEROL 3 ML NEB INH PRN (08:04)
[2018-08-14] MEDS ORDERED: POTASSIUM CHLORIDE 20 MEQ TABLET PO SCH (08:08)
[2018-08-14] MEDS ORDERED: MAGNESIUM OXIDE 400 MG TABLET PO SCH (09:00)
[2018-08-14] MEDS: INSULIN ASPART 300 UNIT/3 ML PEN SUBQ SCH ×7 (09:11→20:39)
[2018-08-14] MEDS: cefTRIAXone 1 GM in SODIUM CHLORIDE 0.9% MINIBAG 100 ML IV SCH (09:16)
[2018-08-14] MEDS: FAMOTIDINE 20 MG/50 ML 50 ML IV SCH (09:28)
[2018-08-14] MEDS: NEUTRA-PHOS 250 MG TABLET PO SCH ×2 (10:04→11:49)
[2018-08-14] MEDS: guaiFENesin 600 MG TABLET PO SCH ×2 (10:05→20:20)
[2018-08-14] MEDS: SACCHAROMYCES BOULARDII 250 MG CAPSULE PO SCH ×2 (10:05→16:36)
[2018-08-14] MEDS: NICOTINE 14 MG PATCH TOP SCH (10:06)
[2018-08-14] MEDS: IPRATROPIUM/ALBUTEROL 3 ML NEB INH SCH ×3 (10:34→19:56)
[2018-08-14] MEDS ORDERED: NEUTRA-PHOS 250 MG TABLET PO SCH ×2 (12:00→14:00)
[2018-08-14] MEDS: MAGNESIUM OXIDE 400 MG TABLET PO SCH ×2 (13:25→18:39)
[2018-08-14] MEDS ORDERED: ZINC OXIDE 20% OINT 28.35 GM TUBE TOP PRN (13:41)
[2018-08-14] MEDS: ONDANSETRON 4 MG/2 ML VIAL IVP PRN (16:35)
[2018-08-14] MEDS: FAMOTIDINE 20 MG TABLET PO SCH (20:20)
[2018-08-14] MEDS: INSULIN GLARGINE 300 UNIT/3 ML PEN SUBQ SCH (20:40)
[2018-08-15] MEDS: CLINDAMYCIN 600 MG/50 ML 50 ML IV SCH ×4 (00:10→17:47)
[2018-08-15] MEDS: HYDROmorphone 0.5 MG/0.5 ML SYRINGE IVP PRN ×4 (01:30→11:22)
[2018-08-15] MEDS: SODIUM CHLORIDE 0.9% 1,000 ML IV SCH ×3 (01:31→17:22)
[2018-08-15] MEDS: SODIUM CHLORIDE FLUSH 0.9% 10 ML SYRINGE IVP SCH ×4 (01:31→16:43)
[2018-08-15 05:13] LABS: BASOPHILS % (AUTO) 0.3 %; EOSINOPHILS % (AUTO) 0.1 %; LYMPHOCYTES # (AUTO) 2.1 10^3/uL (1.5-3.5); LYMPHOCYTES % (AUTO) 26.8 %; MEAN CORPUSCULAR HEMOGLOBIN 32.2 pg (27.0-31.0); MEAN CORPUSCULAR VOLUME 94.7 fL (81.0-99.0); MEAN PLATELET VOLUME 9.3 fL (7.9-10.8); MONOCYTES # (AUTO) 0.5 10^3/uL (0.0-1.0); MONOCYTES % (AUTO) 6.5 %; NEUTROPHILS # (AUTO) 5.3 10^3/uL (1.5-6.6); NEUTROPHILS % (AUTO) 66.3 %; PLT - PLATELET COUNT 281 10^3/uL (130-450); RED BLOOD COUNT 3.73 10^6/uL (4.20-5.40); RED CELL DISTRIBUTION WIDTH 12.8 % (12.0-15.0)
[2018-08-15 05:23] LABS: ALBUMIN 1.9 g/dL (3.2-5.5); ALBUMIN/GLOBULIN RATIO 0.4 (1.0-2.2); BILIRUBIN,TOTAL 0.4 mg/dL (0.2-1.0); CALCIUM 7.5 mg/dL (8.5-10.3); CREATININE 0.4 mg/dL (0.4-1.0); TOTAL PROTEIN 6.5 g/dL (6.7-8.2)
[2018-08-15] MEDS: INSULIN ASPART 300 UNIT/3 ML PEN SUBQ SCH ×8 (07:51→21:45)
--- NOTE | 2018-08-15 08:39 | PROVIDER PROGRESS NOTE ---
Assessment/Plan - Problem List (1) Necrotizing pneumonia Assessment/Plan: She remains on iv antibiotics, Day #2 today. Continue Fliorastor while on antibiotics. Because she is stabilizing clinically, will transition to po antibiotics after today for DCh in 1-2 days. Mucinex and nebs to continue. (2) Hypoglycemia Assessment/Plan: Her morning glu was 40. This happened on the last admission; glu was in the 30's and it was felt to be from her mistakingly taking an Insulin dose twice. She received glu and it is up to 80. She was asymptomatic with the low glu of 40. Will decrease the Lantus evening dose from 20 U to 12 U. 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 (4) Chronic alcoholic pancreatitis Assessment/Plan: Stable (5) Polysubstance abuse Assessment/Plan: Stable (6) Tobacco dependence Assessment/Plan: Stable (7) Non-compliance Assessment/Plan: Patient is motivated to take meds (8) Cachexia Assessment/Plan: Meals and help are being arranged by SW. (9) DKA (diabetic ketoacidoses) Qualifiers: Diabetes mellitus type: type 1 Diabetes mellitus complication detail: without coma Qualified Code(s): E10.10 - Type 1 diabetes mellitus with ketoacidosis without coma Assessment/Plan: Resolved - Current Meds Current Meds: Current Medications Generic Name Dose Route Start Last Admin Trade Name Freq PRN Reason Stop Dose Admin Albuterol/Ipratropium 3 ml 08/14/18 08:04 08/14/18 19:56 Duoneb INH 3 ml RTQID BRENDON Administration Famotidine 20 mg 08/14/18 21:00 08/14/18 20:20 Pepcid PO 20 mg BID BRENDON Administration Guaifenesin 600 mg 08/14/18 09:00 08/14/18 20:20 Mucinex PO 600 mg BID BRENDON Administration Hydromorphone HCl 0.5 mg 08/12/18 16:18 08/15/18 08:01 Dilaudid Inj Syringe IVP 0.5 mg Q3H PRN Administration Pain 8 to 10 Sodium Chloride 1,000 mls @ 125 mls/hr 08/13/18 07:00 08/15/18 01:31 Normal Saline 0.9% IV 125 mls/hr .Q8H BRENDON Administration Ceftriaxone Sodium 1 gm/ 100 mls @ 200 mls/hr 08/13/18 19:00 08/14/18 09:46 Sodium Chloride IV Infused DAILY BRENDON Infusion Clindamycin Phosphate 50 mls @ 100 mls/hr 08/13/18 21:00 08/15/18 07:06 Cleocin 600 Mg/50 Ml IV Infused Q6HR BRENDON Infusion Insulin Aspart 3 unit 08/13/18 17:36 08/15/18 07:51 Novolog SUBQ Not Given TIDWM [facility] Protocol Insulin Aspart 1 - 5 unit 08/14/18 12:00 08/15/18 07:52 Novolog SUBQ Not Given 0800,1200,1700,2100 [facility] Protocol Nicotine 1 patch 08/12/18 16:34 08/14/18 10:06 Nicoderm TOP 1 patch DAILY BRENDON Administration Ondansetron HCl 4 mg 08/12/18 16:18 08/14/18 16:35 Zofran Inj IVP 4 mg Q6HR PRN Administration Nausea / Vomiting Prochlorperazine Edisylate 10 mg 08/12/18 16:18 08/12/18 18:19 Compazine Inj IVP 10 mg Q6HR PRN Administration Nausea / Vomiting Saccharomyces Boulardii 250 mg 08/13/18 17:00 08/14/18 16:36 Florastor PO 250 mg BIDWM BRENDON Administration Sodium Chloride 10 ml 08/12/18 17:00 08/15/18 08:01 Normal Saline Flush 0.9% IVP 10 ml 0100,0900,1700 BRENDON Administration Sodium Chloride 10 ml 08/12/18 16:18 08/14/18 10:09 Normal Saline Flush 0.9% IVP 10 ml PRN PRN Administration NEEDED PER PROVIDER ORDERS Sodium Chloride 20 ml 08/13/18 16:31 08/14/18 05:35 Normal Saline Flush 0.9% IVP 20 ml PRN PRN Administration After Blood Draw - Lab Result Fish Bone Diagrams: 08/15/18 04:58 08/15/18 04:58 - Additional Planning My Orders: My Active Orders 08/14/18 08:04 Ipratropium/Albuterol [Duoneb] 3 ml INH RTQ4H PRN Ipratropium/Albuterol [Duoneb] 3 ml INH RTQID 08/14/18 08:08 Nebulizer/MDI Tx. [RC] .QID 08/14/18 09:00 guaiFENesin [Mucinex] 600 mg PO BID 08/14/18 12:00 Insulin Aspart [NovoLOG] 1 - 5 unit SUBQ 0800,1200,1700,2100 08/14/18 13:41 Zinc Oxide 20% Oint [Zinc Oxide] 1 applic TOP PRN PRN 08/14/18 21:00 Famotidine [Pepcid] 20 mg PO BID 08/15/18 09:00 Docusate Sodium 250Mg Capsule [Colace 250Mg Capsule] 250 - 500 mg PO DAILY Senna [Senokot] 8.6 - 17.2 mg PO DAILY 08/15/18 21:00 Insulin Glargine [Lantus Solostar] 12 unit SUBQ QPM 08/16/18 05:00 CMP [COMPREHENSIVE METABOLIC PANEL] [CHEM] DAILYLAB Subjective - Subjective Patient Reports: Feeling Better, Resting Comfortably Nursing Reports: Other (Morning glu was 40) Objective Vital Signs: Vital Signs - 24 hr 08/14/18 08/14/18 08/14/18 08:50 10:37 10:46 Temperature Heart Rate 90 Heart Rate [ 94 Activity] Heart Rate [ 88 Monitoring electrodes] Heart Rate [ 94 Supine] Respiratory 15 12 Rate Blood Pressure 137/83 H [Activity] Blood Pressure 132/91 H [Right Brachial artery] Blood Pressure 132/80 H [Supine] O2 Saturation 96 08/14/18 08/14/18 08/14/18 11:54 15:09 15:35 Temperature 37.0 C 37.2 C Heart Rate 84 Heart Rate [ Activity] Heart Rate [ 91 90 Monitoring electrodes] Heart Rate [ Supine] Respiratory 18 14 18 Rate Blood Pressure [Activity] Blood Pressure 135/86 H 134/77 H [Right Brachial artery] Blood Pressure [Supine] O2 Saturation 94 96 08/14/18 08/14/18 08/14/18 19:51 19:56 23:50 Temperature 37.3 C 37.3 C Heart Rate 93 Heart Rate [ Activity] Heart Rate [ 93 90 Monitoring electrodes] Heart Rate [ Supine] Respiratory 18 18 18 Rate Blood Pressure [Activity] Blood Pressure 131/77 H 143/93 H [Right Brachial artery] Blood Pressure [Supine] O2 Saturation 97 95 08/15/18 08/15/18 04:10 08:21 Temperature 37.2 C Heart Rate Heart Rate [ Activity] Heart Rate [ 84 77 Monitoring electrodes] Heart Rate [ Supine] Respiratory 18 20 Rate Blood Pressure [Activity] Blood Pressure 159/89 H 140/86 H [Right Brachial artery] Blood Pressure [Supine] O2 Saturation 96 94 Oxygen O2 Source Room air I&O (Last 24 Hrs): Intake and Output Totals x24h 08/13/18 08/14/18 08/15/18 23:59 23:59 23:59 Intake Total 7940.499 4572.333 1700 Output Total 2825 1250 Balance 5115.499 3322.333 1700 General: Alert, Oriented x3 HEENT: Mucous membr. moist/pink Neck: Supple Neuro: Non Focal Cardiovascular: Regular rate, Normal S1 Respiratory: No respiratory distress Abdomen: Soft Extremities: No edema - Results Results: Laboratory Results WBC 8.0 x10^3/uL (4.8-10.8) 08/15/18 04:58 RBC 3.73 10^6/uL (4.20-5.40) L 08/15/18 04:58 Hgb 12.0 g/dL (12.0-16.0) 08/15/18 04:58 Hct 35.3 % (37.0-47.0) L 08/15/18 04:58 MCV 94.7 fL (81.0-99.0) 08/15/18 04:58 MCH 32.2 pg (27.0-31.0) H 08/15/18 04:58 MCHC 34.0 g/dL (32.0-36.0) 08/15/18 04:58 RDW 12.8 % (12.0-15.0) 08/15/18 04:58 Plt Count 281 10^3/uL (130-450) 08/15/18 04:58 MPV 9.3 fL (7.9-10.8) 08/15/18 04:58 Neut # (Auto) 5.3 10^3/uL (1.5-6.6) 08/15/18 04:58 Lymph # (Auto) 2.1 10^3/uL (1.5-3.5) 08/15/18 04:58 [place] # (Auto) 0.5 10^3/uL (0.0-1.0) 08/15/18 04:58 Eos # (Auto) 0.0 10^3/uL (0.0-0.7) 08/15/18 04:58 Baso # (Auto) 0.0 10^3/uL (0.0-0.1) 08/15/18 04:58 Absolute Nucleated RBC 0.00 x10^3/uL 08/15/18 04:58 Nucleated RBC % 0.0 /100WBC 08/15/18 04:58 VBG pH 7.439 (7.31-7.41) H 08/13/18 03:45 VBG pCO2 35.9 mmHg (41-51) L 08/13/18 03:45 VBG pO2 71.4 mmHg (25-47) H 08/13/18 03:45 VBG HCO3 23.8 mmol/L (23-28) 08/13/18 03:45 VBG Total CO2 24.9 mmol/L (24-29) 08/13/18 03:45 VBG O2 Saturation 95.0 % (60-80) H 08/13/18 03:45 VBG Base Excess 0.0 mmol/L (-2 - +2) 08/13/18 03:45 Sodium 132 mmol/L (135-145) L 08/15/18 04:58 Potassium 3.4 mmol/L (3.5-5.0) L 08/15/18 04:58 Chloride 101 mmol/L (101-111) 08/15/18 04:58 Carbon Dioxide 24 mmol/L (21-32) 08/15/18 04:58 Anion Gap 7.0 (6-13) 08/15/18 04:58 BUN 9 mg/dL (6-20) 08/15/18 04:58 Creatinine 0.4 mg/dL (0.4-1.0) 08/15/18 04:58 Estimated GFR (MDRD) 168 (>89) 08/15/18 04:58 Glucose 74 mg/dL (70-100) 08/15/18 04:58 POC Whole Bld Glucose 89 mg/dL (70 - 100) 08/15/18 08:29 Glycated Hemoglobin 16.4 % (4.6-6.2) H 08/12/18 11:26 Estim Average Glucose 424 (70-100) H 08/12/18 11:26 Calcium 7.5 mg/dL (8.5-10.3) L 08/15/18 04:58 Phosphorus 1.7 mg/dL (2.5-4.6) L 08/14/18 05:48 Magnesium 1.4 mg/dL (1.7-2.8) L 08/14/18 05:48 Total Bilirubin 0.4 mg/dL (0.2-1.0) 08/15/18 04:58 AST 62 IU/L (10-42) H 08/15/18 04:58 ALT 32 IU/L (10-60) 08/15/18 04:58 Alkaline Phosphatase 270 IU/L (42-121) H 08/15/18 04:58 Total Protein 6.5 g/dL (6.7-8.2) L 08/15/18 04:58 Albumin 1.9 g/dL (3.2-5.5) L 08/15/18 04:58 Globulin 4.6 g/dL (2.1-4.2) H 08/15/18 04:58 Albumin/Globulin Ratio 0.4 (1.0-2.2) L 08/15/18 04:58 Triglycerides 94 mg/dL (-149) 08/12/18 16:55 Lipase 38 U/L (22-51) 08/13/18 02:15 Urine Color YELLOW 08/12/18 11:45 Urine Clarity CLEAR (CLEAR) 08/12/18 11:45 Urine pH 5.5 PH (5.0-7.5) 08/12/18 11:45 Ur Specific [place] >=1.030 (1.002-1.030) H 08/12/18 11:45 Urine Protein NEGATIVE mg/dL (NEGATIVE) 08/12/18 11:45 Urine Glucose (UA) >=1000 mg/dL (NEGATIVE) H 08/12/18 11:45 Urine Ketones >=80 mg/dL (NEGATIVE) H 08/12/18 11:45 Urine Occult Blood NEGATIVE (NEGATIVE) 08/12/18 11:45 Urine Nitrite NEGATIVE (NEGATIVE) 08/12/18 11:45 Urine Bilirubin NEGATIVE (NEGATIVE) 08/12/18 11:45 Urine Urobilinogen 0.2 (NORMAL) E.U./dL (NORMAL) 08/12/18 11:45 Ur Leukocyte Esterase NEGATIVE (NEGATIVE) 08/12/18 11:45 Ur Microscopic Review NOT INDICATED 08/12/18 11:45 Urine Culture Comments NOT INDICATED 08/12/18 11:45 Urine HCG, Qual NEGATIVE 08/12/18 11:45 Urine Opiates Screen NEGATIVE (NEGATIVE) 08/12/18 11:45 Ur Oxycodone Screen NEGATIVE (NEGATIVE) 08/12/18 11:45 Urine Methadone Screen NEGATIVE (NEGATIVE) 08/12/18 11:45 Ur Propoxyphene Screen NEGATIVE (NEGATIVE) 08/12/18 11:45 Ur Barbiturates Screen NEGATIVE (NEGATIVE) 08/12/18 11:45 Ur Tricyclics Screen NEGATIVE (NEGATIVE) 08/12/18 11:45 Ur Phencyclidine Scrn NEGATIVE (NEGATIVE) 08/12/18 11:45 Ur Amphetamine Screen NEGATIVE (NEGATIVE) 08/12/18 11:45 U Methamphetamines Scrn NEGATIVE (NEGATIVE) 08/12/18 11:45 U Benzodiazepines Scrn NEGATIVE (NEGATIVE) 08/12/18 11:45 Urine Cocaine Screen NEGATIVE (NEGATIVE) 08/12/18 11:45 U Cannabinoids Screen POSITIVE (NEGATIVE) H 08/12/18 11:45 Ethyl Alcohol < 5.0 mg/dL 08/12/18 11:26 Serum Ketones NEGATIVE (NEGATIVE) 08/13/18 03:45 MRSA Surveill Initial NEGATIVE (NEGATIVE) 08/12/18 17:34
[2018-08-15] MEDS: IPRATROPIUM/ALBUTEROL 3 ML NEB INH SCH ×4 (09:14→21:03)
[2018-08-15] MEDS: SENNA 8.6 MG TABLET PO SCH (09:56)
[2018-08-15] MEDS: SACCHAROMYCES BOULARDII 250 MG CAPSULE PO SCH ×2 (09:56→17:22)
[2018-08-15] MEDS: DOCUSATE SODIUM 250 MG CAPSULE PO SCH (09:57)
[2018-08-15] MEDS: guaiFENesin 600 MG TABLET PO SCH ×2 (09:57→21:12)
[2018-08-15] MEDS: FAMOTIDINE 20 MG TABLET PO SCH ×2 (09:57→21:13)
[2018-08-15] MEDS: NICOTINE 14 MG PATCH TOP SCH (09:57)
[2018-08-15] MEDS: cefTRIAXone 1 GM in SODIUM CHLORIDE 0.9% MINIBAG 100 ML IV SCH (09:58)
[2018-08-15] MEDS ORDERED: ACETAMINOPHEN/CODEINE 300 MG/30 MG TABLET PO PRN (12:09)
[2018-08-15] MEDS: ACETAMINOPHEN 325 MG TABLET PO PRN (16:42)
[2018-08-15] MEDS: SODIUM CHLORIDE FLUSH 0.9% 10 ML SYRINGE IVP PRN (18:50)
[2018-08-15] MEDS: ONDANSETRON 4 MG/2 ML VIAL IVP PRN (18:50)
[2018-08-15] MEDS ORDERED: CALCIUM CARBONATE CHEW 500 MG TABLET PO PRN (20:21)
[2018-08-15] MEDS ORDERED: INSULIN GLARGINE 300 UNIT/3 ML PEN SUBQ SCH (21:00)
[2018-08-15] MEDS: SUCRALFATE 1 GM/10 ML UDC PO SCH (21:27)
[2018-08-15] MEDS: oxyCODONE ER 10 MG TABLET PO SCH (21:27)
[2018-08-16] MEDS: CLINDAMYCIN 600 MG/50 ML 50 ML IV SCH ×3 (00:45→11:14)
[2018-08-16] MEDS: SODIUM CHLORIDE FLUSH 0.9% 10 ML SYRINGE IVP SCH ×2 (00:46→11:11)
[2018-08-16] MEDS: SODIUM CHLORIDE 0.9% 1,000 ML IV SCH (02:39)
[2018-08-16] MEDS: ACETAMINOPHEN 325 MG TABLET PO PRN (04:29)
[2018-08-16] MEDS: SUCRALFATE 1 GM/10 ML UDC PO SCH ×2 (06:25→11:11)
[2018-08-16 06:53] LABS: ALBUMIN 1.7 g/dL (3.2-5.5); ALBUMIN/GLOBULIN RATIO 0.4 (1.0-2.2); BILIRUBIN,TOTAL 0.6 mg/dL (0.2-1.0); CALCIUM 7.3 mg/dL (8.5-10.3); CREATININE 0.5 mg/dL (0.4-1.0); TOTAL PROTEIN 5.8 g/dL (6.7-8.2)
[2018-08-16] MEDS ORDERED: PANTOPRAZOLE 40 MG TABLET PO SCH (07:00)
[2018-08-16] MEDS: INSULIN ASPART 300 UNIT/3 ML PEN SUBQ SCH ×4 (08:02→13:08)
[2018-08-16] MEDS: FAMOTIDINE 20 MG TABLET PO SCH (09:00)
[2018-08-16] MEDS ORDERED: ATORVASTATIN 10 MG TABLET PO SCH (09:00)
[2018-08-16] MEDS ORDERED: NON FORMULARY MED (Omeprazole [Omeprazole] 20 MG) PO SCH (09:00)
[2018-08-16] MEDS: SACCHAROMYCES BOULARDII 250 MG CAPSULE PO SCH (09:00)
[2018-08-16] MEDS: oxyCODONE ER 10 MG TABLET PO SCH (09:00)
[2018-08-16] MEDS: guaiFENesin 600 MG TABLET PO SCH (09:00)
[2018-08-16] MEDS: NICOTINE 14 MG PATCH TOP SCH (09:02)
[2018-08-16] MEDS: DOCUSATE SODIUM 250 MG CAPSULE PO SCH (09:07)
[2018-08-16] MEDS: SENNA 8.6 MG TABLET PO SCH (09:10)
[2018-08-16] MEDS: cefTRIAXone 1 GM in SODIUM CHLORIDE 0.9% MINIBAG 100 ML IV SCH (09:39)
[2018-08-16] MEDS: IPRATROPIUM/ALBUTEROL 3 ML NEB INH SCH (10:41)
[2018-08-16] MEDS: SODIUM CHLORIDE FLUSH 0.9% 10 ML SYRINGE IVP PRN (11:12)
[2018-08-16] MEDS ORDERED: AMOX/CLAV 500 MG/125 MG TABLET PO SCH ×2 (11:32→21:00)
--- NOTE | 2018-08-16 12:03 | Discharge Plan ---
Discharge Plan Disposition: Home, Self Care Condition: Fair Prescriptions: Amox/Clav 500/125 [Augmentin 500/125] 4 tab PO BID #40 tablet Calcium Carbonate [Tums (Calcium Carbonate 500mg)] 500 mg PO TID PRN #60 tablet PRN Reason: Heartburn guaiFENesin [Mucinex] 600 mg PO BID #10 tablet Insulin Aspart [NovoLOG] 1 - 5 unit SUBQ 0800,1200,1700,2100 #2 pen Insulin Glargine [Lantus Solostar] 10 unit SUBQ QPM #2 pen Saccharomyces Boulardii [Florastor] 250 mg PO BID #10 capsule Tiotropium [place] [Spiriva Respimat] 2 puffs IH BID #2 mist.inhal Diet: Diabetic Activity Restrictions: Activity as Tolerated Shower Restrictions: No Additional Instructions or Follow Up instructions: You were admitted for DKA caused by not taking your medications and having a pneumonia. Please start taking the medications that have been re-prescribed (to Silvio at [facility]). You should finish the antibiotic (Augmentin) that are ordered, along with Florastor (to prevent diarrhea). Also an inhaler and a cough suppressant and expectorant was prescribed. See your PCP in 1-2 weeks in follow-up. You may also be seen in the [facility]. If you have new or worsening symptoms, come to the ER. No Smoking: If you smoke, Please STOP! Call for help. Follow-up with: Roseanne Lara ARNP [Primary Care Provider] -
[2018-08-16 12:18] VITALS: BP 146/90
[2018-08-16] MEDS ORDERED: INSULIN GLARGINE 300 UNIT/3 ML PEN SUBQ SCH (21:00)
[2018-08-17] MEDS ORDERED: IOVERSOL 320 100 ML VIAL IVP ONE (07:11)
--- NOTE | 2018-08-20 15:15 | DISCHARGE SUMMARY ---
Physician: Angela Dial MD DATE OF ADMISSION: 08/12/2018 DATE OF DISCHARGE: 08/16/2018 HISTORY OF PRESENT ILLNESS: This is a 53-year-old white female with a history of insulin-dependent diabetes, noncompliance, polysubstance abuse, alcohol abuse with chronic alcoholic pancreatitis, cachexia, prior homeless status. The patient was here about a month ago with obtundation felt to be from documented hypoglycemia with glucoses of 30 to 40, possibly caused by accidentally using high doses of Metformin and/or Insulin. She has known labile glucose control. The patient presented this time with obtundation, in DKA, and admitted that she had stopped all her medications for one month. HOSPITAL COURSE AND DISCHARGE DIAGNOSES 1. Diabetic ketoacidosis. The patient was admitted to the ICU and placed on a DKA protocol with insulin drip, IV saline, close monitoring of her ketones, electrolytes and glucose. She was obtunded and awoke in 24 to 36 hours and admitted that she had stopped all her medications for unknown reason. She was restarted on her Long-acting and Regular Insulin; and Metformin was put on hold. She was able to eat a carb-controlled diet. Besides noncompliance for 1 month, a search for infection was undertaken to explain an episode of DKA, which she had never had before. Since her lipase level was elevated, she had an abdominal CT, and the bases of the lungs had been reported to show an infiltrate as well as a mass. Because of this, she had a complete CT of the chest for closer lung evaluation, and this showed necrotizing pneumonia; this was treated and felt to also have pushed her into DKA. 2. Necrotizing pneumonia. The chest x-ray on admission showed patchy medial left lung base consolidation only, but the CT of the chest done the following day revealed left lower lobe and left upper lobe infiltrates with central air fluid levels, representing necrotizing pneumonia. There was no associated lymphadenopathy, but malignancy remains a differential consideration. Her cough was treated with Mucinex and p.r.n. inhalers. She was started on treatment for healthcare-acquired pneumonia (because of her recent admission here 1 month previously). The IV Ceftriaxone and IV Clindamycin were later transitioned to high-dose Augmentin (at necrotizing pneumonia doses) near the time of discharge, with plan to complete a 10-day total course of antibiotics. 3. Hypoglycemia. As had previously occurred, the patient had an episode of hypoglycemia while here despite careful Insulin adjustment: during mid- hospitalization, her morning serum glucose was 40. Because of this, her Long- acting Insulin dose was decreased, the Regular Insulin sliding scale was put to low doses, and no Metformin was used for management. Presumably, as her infection cleared, her Insulin requirements are less. 4. Chronic alcoholic pancreatitis. Patient had no abdominal complaints while here. Her admitting lipase was 76, which improved to 38 after 2 days. She had abdomen and pelvis CT imaging that showed chronic pancreatitis, but no evidence of mass or acute pancreatitis. Also seen was chronic portal vein thrombosis with cavernous transformation, and incidental findings of diverticulosis without diverticulitis and also the left lower lobe airspace pulmonary disease as described above. 5. Polysubstance abuse. Her labs showed cannabinoids on screen; all other drugs were negative. 6. Tobacco dependence. The patient required a nicotine patch while here. 7. Noncompliance. This was admitted by the patient. She requires close medical management. 8. Cachexia. She described living with a friend but the environment there was poor. Social Workers helped change her living situation at discharge. LABS AND IMAGING: Reviewed and summarized above. ALLERGIES: MORPHINE. MEDICATIONS AT TIME OF DISCHARGE 1. Omeprazole 20 mg daily. 2. Tylenol p.r.n. 3. Augmentin 2 grams p.o. b.i.d. for an additional 5 days. 4. Lipitor 20 mg every night. 5. Calcium carbonate 500 mg t.i.d. p.r.n. GERD. 6. Neurontin 100 mg t.i.d. 7. Mucinex 600 mg b.i.d. for an additional 5 days. 8. NovoLog insulin 10 units sub-q. every night and Regular insulin by sliding scale, using 1-5 units only. 9. Lisinopril 10 mg daily. 10. Florastor 250 mg b.i.d. for an additional 5 days. 11. Spiriva Respimat 2 puffs b.i.d. p.r.n. *She should be offered taking a daily aspirin for cardiovascular benefit. CONDITION AT DISCHARGE: Stable. PHYSICAL EXAMINATION VITAL SIGNS: Blood pressure 140/90, heart rate 89 in sinus rhythm, afebrile, room air saturation 99%. HEENT: She is poorly kempt, has poor dentition, moist oral mucosa. NECK: Without JVD or carotid bruits. CHEST: Clear. HEART: Heart sounds are normal. ABDOMEN: Soft, nontender. No organomegaly. EXTREMITIES: Without edema. NEUROLOGIC: Intact. FOLLOWUP: Patient was advised to see her PCP or come to the diabetic clinic [place] [facility] 5 to 10 days. CODE STATUS: FULL CODE. Time required to complete this entire discharge, chart review, patient education, prescription orders, dictation: 60 minutes. TD: 08/20/2018 14:04 [facility]
== END 2018-08-16 14:00 | disposition home or self-care (01) | DRG 637 ==
LOC: ED 11:00 → ICU 16:18 → MS2 08-14 11:39
PROVIDERS: ADMIT Internal Medicine; ATTEND Internal Medicine
PROC: 02HV33Z Insertion of Infusion Device into Superior Vena Cava, Percutaneous Approach (ICD-10-PCS; principal; 2018-08-12)
DX: E10.10 Type 1 diabetes mellitus with ketoacidosis without coma (principal); J85.0 Gangrene and necrosis of lung; I81 Portal vein thrombosis; K86.0 Alcohol-induced chronic pancreatitis; E23.0 Hypopituitarism; R64 Cachexia; Z68.1 Body mass index [BMI] 19.9 or less, adult; F10.10 Alcohol abuse, uncomplicated; E10.649 Type 1 diabetes mellitus with hypoglycemia without coma; F11.10 Opioid abuse, uncomplicated; F15.10 Other stimulant abuse, uncomplicated; F19.10 Other psychoactive substance abuse, uncomplicated; J44.9 Chronic obstructive pulmonary disease, unspecified; F17.210 Nicotine dependence, cigarettes, uncomplicated; I10 Essential (primary) hypertension; E78.00 Pure hypercholesterolemia, unspecified; K21.9 Gastro-esophageal reflux disease without esophagitis; M10.9 Gout, unspecified; M19.90 Unspecified osteoarthritis, unspecified site; Z79.4 Long term (current) use of insulin; Z79.82 Long term (current) use of aspirin; Z91.14 Patient's other noncompliance with medication regimen; Z90.49 Acquired absence of other specified parts of digestive tract; Z87.19 Personal history of other diseases of the digestive system; Z87.01 Personal history of pneumonia (recurrent)
CPT/HCPCS: 36415; 71045; 71260; 74177; 80048; 80053; 80306; 80320; 81001; 81003; 81025; 82009; 82040; 82803; 82947; 83036; 83690; 83735; 84100; 84132; 84478; 85025; 87040; 87086; 87150; 94640; 96365; 96375; 99284

== ENCOUNTER 2018-09-16 21:27 | Emergency (ER) | payer MEDICAID ==
[2018-09-16] MEDS ORDERED: SODIUM CHLORIDE 0.9% 1,000 ML IV STA (21:43)
[2018-09-16 21:53] LABS: BILIRUBIN,URINE NEGATIVE (NEGATIVE); GLUCOSE, URINE (UA) >=1000 mg/dL (NEGATIVE); KETONES,URINE (UA) TRACE mg/dL (NEGATIVE); LEUKOCYTE ESTERASE, URINE NEGATIVE (NEGATIVE); NITRITE,URINE NEGATIVE (NEGATIVE); OCCULT BLOOD,URINE NEGATIVE (NEGATIVE); PH,URINE 6.5 PH (5.0-7.5); PROTEIN,URINE NEGATIVE (NEGATIVE); UROBILINOGEN,URINE 0.2 (NORMAL) E.U./dL (NORMAL)
[2018-09-16 22:03] LABS: KETONES, SERUM (ACETEST) NEGATIVE (NEGATIVE)
[2018-09-16 22:04] LABS: BASOPHILS # (AUTO) 0.1 10^3/uL (0.0-0.1); BASOPHILS % (AUTO) 0.8 %; EOSINOPHILS # (AUTO) 0.1 10^3/uL (0.0-0.7); EOSINOPHILS % (AUTO) 1.3 %; HGB - HEMOGLOBIN 11.8 g/dL (12.0-16.0); LYMPHOCYTES # (AUTO) 2.1 10^3/uL (1.5-3.5); LYMPHOCYTES % (AUTO) 27.8 %; MEAN CORPUSCULAR HEMOGLOBIN 31.7 pg (27.0-31.0); MEAN CORPUSCULAR HGB CONC 33.3 g/dL (32.0-36.0); MEAN CORPUSCULAR VOLUME 95.4 fL (81.0-99.0); MEAN PLATELET VOLUME 9.3 fL (7.9-10.8); MONOCYTES # (AUTO) 0.4 10^3/uL (0.0-1.0); MONOCYTES % (AUTO) 4.9 %; NEUTROPHILS # (AUTO) 4.9 10^3/uL (1.5-6.6); NEUTROPHILS % (AUTO) 65.2 %; PLT - PLATELET COUNT 380 10^3/uL (130-450); RED BLOOD COUNT 3.71 10^6/uL (4.20-5.40); VBG PCO2 48.5 mmHg (41-51); VBG PH 7.407 (7.31-7.41); VBG PO2 31.4 mmHg (25-47); VBG TOTAL CO2 31.3 mmol/L (24-29); WHITE BLOOD COUNT 7.5 x10^3/uL (4.8-10.8)
[2018-09-16 22:05] LABS: VBG BASE EXCESS 4.3 mmol/L (-2 - +2)
[2018-09-16 22:05] LABS: CLARITY,URINE CLEAR (CLEAR)
[2018-09-16 22:09] LABS: ALBUMIN 2.9 g/dL (3.2-5.5); ALBUMIN/GLOBULIN RATIO 0.6 (1.0-2.2); ALKALINE PHOSPHATASE 218 IU/L (42-121); ALT ALANINE AMINOTRANSFERASE 20 IU/L (10-60); AST ASPARTATE AMINOTRANSFERASE 24 IU/L (10-42); BILIRUBIN,TOTAL 0.6 mg/dL (0.2-1.0); BUN - BLOOD UREA NITROGEN 15 mg/dL (6-20); CALCIUM 8.4 mg/dL (8.5-10.3); CARBON DIOXIDE - CO2 27 mmol/L (21-32); CHLORIDE 88 mmol/L (101-111); CREATININE 0.9 mg/dL (0.4-1.0); GFR - MDRD 66 (>89); GLUCOSE 427 mg/dL (70-100); LIPASE 70 U/L (22-51); SODIUM 127 mmol/L (135-145); TOTAL PROTEIN 7.6 g/dL (6.7-8.2)
[2018-09-16] MEDS ORDERED: INSULIN REGULAR HUMAN 100 UNIT/1 ML 10 ML MDV IVP STA (22:19)
[2018-09-16] MEDS ORDERED: KETOROLAC 30 MG/ML VIAL IVP STA (22:20)
[2018-09-16 22:22] LABS: PLATELET ESTIMATE, MANUAL NORMAL (130-450,000) (NORMAL); PLATELET MORPHOLOGY 1+ GIANT PLATELETS (NORMAL); RBC MORPHOLOGY (MULTIPLE) NORMAL APPEARANCE (NORMAL)
--- NOTE | 2018-09-16 22:32 | XRAY Report ---
Reason: cough Procedure Date: 09/16/2018 Accession Number: [id number] / [id number] Procedure: XR - Chest 2 View X-Ray CPT Code: 74400 FULL RESULT: EXAM: CHEST RADIOGRAPHY EXAM DATE: 09/16/2018 10:11 PM. CLINICAL HISTORY: Cough. COMPARISON: CHEST 1 VIEW 08/12/2018 9:03 PM CHEST W/ 08/13/2018 6:57 PM. TECHNIQUE: 2 views. FINDINGS: Lungs/Pleura: Mild residual left lung base opacity with significant improvement compared to prior exam. No new opacity. No gross pneumothorax or large effusion. Mediastinum: Heart and mediastinal contours are unremarkable. Other: Multiple old left-sided rib fractures again noted. IMPRESSION: Mild residual left lung base opacity with significant improvement compared to prior exam. No new opacity. RADIA
[2018-09-16 23:10] VITALS: BP 131/82
[2018-09-16] MEDS ORDERED: DOXYCYCLINE 100 MG TABLET PO STA (23:47)
--- NOTE | 2018-09-16 23:49 | ED Physician Documentation ---
History of Present Illness - Stated complaint Stated Complaint: COUGH/SOA - Chief complaint Chief Complaint: Resp - History obtained from History obtained from: Patient, EMS - History of Present Illness Timing: How many days ago (3) Pain level max: 6 Pain level now: 5 - Additonal information Additional information: 53-year-old female states she has had coughing for the past 3-4 days. Concerned that her pneumonia is recurring. Has also not been checking her blood sugars at home. No abdominal pain. No vomiting. Has noted increased swelling in her feet and states that most of the pain is in her feet. Intermittent subjective fevers. 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 : None HEENT: Other Psych: Depression Musculoskeletal: Gout Derm: Other - Past Surgical History Past Surgical History: Yes General: Splenectomy Ortho: Hip replacement, Rotator cuff repair, Other - Present Medications Home Medications: Ambulatory Orders Medication Instructions Recorded Confirmed Acetaminophen [Tylenol] 650 mg PO Q4HR PRN tablet 06/07/18 08/12/18 Atorvastatin Calcium 20 mg PO DAILY #30 tablet 06/07/18 08/12/18 Gabapentin [Neurontin] 100 mg PO TID #90 capsule 06/07/18 08/12/18 Lisinopril 10 mg PO DAILY #30 tablet 06/07/18 08/12/18 Omeprazole 20 mg PO DAILY 08/12/18 08/12/18 Amox/Clav 500/125 [Augmentin 4 tab PO BID #40 tablet 08/16/18 500/125] Calcium Carbonate [Tums (Calcium 500 mg PO TID PRN #60 tablet 08/16/18 Carbonate 500mg)] Insulin Aspart [NovoLOG] 1 - 5 unit SUBQ 08/16/18 0800,1200,1700,2100 #2 pen Insulin Glargine [Lantus Solostar] 10 unit SUBQ QPM #2 pen 08/16/18 Saccharomyces Boulardii [Florastor] 250 mg PO BID #10 capsule 08/16/18 Tiotropium [place] [Spiriva 2 puffs IH BID #2 mist.inhal 08/16/18 Respimat] guaiFENesin [Mucinex] 600 mg PO BID #10 tablet 08/16/18 Doxycycline Hyclate 100 mg PO BID #20 capsule 09/16/18 Meloxicam [Mobic] 7.5 mg PO BID PRN #20 tablet 09/16/18 - Allergies Allergies/Adverse Reactions: Allergies Allergy/AdvReac Type Severity Reaction Status Date / Time morphine Allergy unknown Verified 09/16/18 21:38 - Social History Does the pt smoke?: Yes Smoking Status: Current every day smoker Does the pt drink ETOH?: No Does the pt have substance abuse?: No - Immunizations Immunizations are current?: Yes Immunizations: TDAP >10years/unknown - POLST Patient has POLST: No POLST Status: Full Code PD ED PE NORMAL - Vitals Vital signs reviewed: Yes - General General: Alert and oriented X 3, No acute distress, Well developed/nourished - HEENT HEENT: PERRL, Ears normal, Moist mucous membranes, Pharynx benign - Neck Neck: Supple, no meningeal sign - Cardiac Cardiac: RRR, Strong equal pulses - Respiratory Respiratory: No respiratory distress, Clear bilaterally - Abdomen Abdomen: Soft, Non tender, Non distended - Derm Derm: Warm and dry, No rash - Extremities Extremities: Other (1+ BLE edema to mid tibia. no signs of infection.) - Neuro Neuro: Alert and oriented X 3 - Psych Psych: Normal mood, Normal affect Results - Vitals Vitals: Vital Signs - 24 hr 09/16/18 09/16/18 21:28 23:09 Temperature 36.6 C Heart Rate 85 87 Respiratory 18 16 Rate Blood Pressure 141/92 H 131/82 H O2 Saturation 100 97 Oxygen O2 Source Room air - Labs Labs: Laboratory Tests 09/16/18 09/16/18 09/16/18 21:30 21:50 21:50 WBC 7.5 RBC 3.71 L Hgb 11.8 L Hct 35.4 L MCV 95.4 MCH 31.7 H MCHC 33.3 RDW 14.0 Plt Count 380 MPV 9.3 Neut # (Auto) 4.9 Lymph # (Auto) 2.1 [place] # (Auto) 0.4 Eos # (Auto) 0.1 Baso # (Auto) 0.1 Absolute Nucleated RBC 0.00 Nucleated RBC % 0.0 Manual Slide Review Indicated Platelet Estimate NORMAL (130-450,000) Platelet Morphology 1+ GIANT PLATELETS RBC Morph Micro Appear NORMAL APPEARANCE VBG pH VBG pCO2 VBG pO2 VBG HCO3 VBG Total CO2 VBG O2 Saturation VBG Base Excess Sodium 127 L Potassium 4.0 Chloride 88 L Carbon Dioxide 27 Anion Gap 12.0 BUN 15 Creatinine 0.9 Estimated GFR (MDRD) 66 L Glucose 427 H Calcium 8.4 L Total Bilirubin 0.6 AST 24 ALT 20 Alkaline Phosphatase 218 H Total Protein 7.6 Albumin 2.9 L Globulin 4.7 H Albumin/Globulin Ratio 0.6 L Lipase 70 H Urine Color YELLOW Urine Clarity CLEAR Urine pH 6.5 Ur Specific [place] 1.010 Urine Protein NEGATIVE Urine Glucose (UA) >=1000 H Urine Ketones TRACE Urine Occult Blood NEGATIVE Urine Nitrite NEGATIVE Urine Bilirubin NEGATIVE Urine Urobilinogen 0.2 (NORMAL) Ur Leukocyte Esterase NEGATIVE Ur Microscopic Review NOT INDICATED Urine Culture Comments NOT INDICATED Serum Ketones NEGATIVE 09/16/18 21:50 WBC RBC Hgb Hct MCV MCH MCHC RDW Plt Count MPV Neut # (Auto) Lymph # (Auto) [place] # (Auto) Eos # (Auto) Baso # (Auto) Absolute Nucleated RBC Nucleated RBC % Manual Slide Review Platelet Estimate Platelet Morphology RBC Morph Micro Appear VBG pH 7.407 VBG pCO2 48.5 VBG pO2 31.4 VBG HCO3 29.8 H VBG Total CO2 31.3 H VBG O2 Saturation 66.0 VBG Base Excess 4.3 H Sodium Potassium Chloride Carbon Dioxide Anion Gap BUN Creatinine Estimated GFR (MDRD) Glucose Calcium Total Bilirubin AST ALT Alkaline Phosphatase Total Protein Albumin Globulin Albumin/Globulin Ratio Lipase Urine Color Urine Clarity Urine pH Ur Specific [place] Urine Protein Urine Glucose (UA) Urine Ketones Urine Occult Blood Urine Nitrite Urine Bilirubin Urine Urobilinogen Ur Leukocyte Esterase Ur Microscopic Review Urine Culture Comments Serum Ketones - Rads (name of study) cxr Radiology: Prelim report reviewed, EMP read contemporaneously, See rad report (Mild residual left lung base opacity with significant improvement compared to prior exam. No new opacity. ) PD MEDICAL DECISION MAKING - ED course Complexity details: reviewed results, re-evaluated patient, considered differential, d/w patient ED course: 53-year-old female with possible residual pneumonia, will place back on antibiotics. Also hyperglycemic without DKA or hyperosmolar nonketotic state. Given IV fluids and insulin. Feels better. Given a dose of doxycycline. No hypoxia. No respiratory distress. No sepsis. Patient counseled regarding signs and symptoms for which I believe and urgent re-evaluation would be necessary. Patient with good understanding of and agreement to plan and is comfortable going home at this time This document was made in part using voice recognition software. While efforts are made to proofread this document, sound alike and grammatical errors may occur. Departure - Departure Disposition: Home, Self Care Clinical Impression: Hyperglycemia Condition: Good Instructions: ED Hyperglycemia Diabetic, ED Pneumonia Adult Follow-Up: Roseanne Lara ARNP [Primary Care Provider] - Within 3 Days Prescriptions: Doxycycline Hyclate 100 mg PO BID #20 capsule Meloxicam [Mobic] 7.5 mg PO BID PRN #20 tablet PRN Reason: Pain Comments: Take all antibiotics until gone. Follow-up with your doctor for further care. Stop any calcium supplements you are taking while you are on the antibiotic. You need to follow-up with your doctor within 2-3 days. Return if you worsen Discharge Date/Time: 09/17/18 00:01
== END 2018-09-17 00:01 | disposition home or self-care (01) ==
LOC: EDUNIT# → ED 21:27
DX: R05 Cough (principal); R91.8 Other nonspecific abnormal finding of lung field; E11.65 Type 2 diabetes mellitus with hyperglycemia; I10 Essential (primary) hypertension; F17.200 Nicotine dependence, unspecified, uncomplicated; Z79.4 Long term (current) use of insulin
CPT/HCPCS: 36415; 71046; 80053; 81003; 82009; 82803; 83690; 85025; 96361; 96374; 99283; A9270; J1815; 81001; 87086

== ENCOUNTER 2018-10-15 11:21 | Outpatient (CLI) | payer MEDICAID | END 2018-10-15 11:22 | disposition critical access hospital (66) | LOC: EMS 11:21 | PROVIDERS: ATTEND Surgery | DX: R07.81 Pleurodynia (principal); R06.02 Shortness of breath | CPT/HCPCS: A0425; A0427; A0999 ==

== ENCOUNTER 2018-10-15 11:42 | Emergency (ER) | payer MEDICAID ==
[2018-10-15 12:13] LABS: BILIRUBIN,URINE NEGATIVE (NEGATIVE); GLUCOSE, URINE (UA) >=1000 mg/dL (NEGATIVE); KETONES,URINE (UA) TRACE mg/dL (NEGATIVE); LEUKOCYTE ESTERASE, URINE NEGATIVE (NEGATIVE); NITRITE,URINE NEGATIVE (NEGATIVE); OCCULT BLOOD,URINE NEGATIVE (NEGATIVE); PROTEIN,URINE NEGATIVE (NEGATIVE); UROBILINOGEN,URINE 0.2 (NORMAL) E.U./dL (NORMAL)
[2018-10-15 12:14] LABS: CLARITY,URINE CLEAR (CLEAR)
--- NOTE | 2018-10-15 12:22 | ED Physician Documentation ---
PD HPI CHEST PAIN - Stated complaint Stated Complaint: RIB PX - Chief complaint Chief Complaint: General - History obtained from History obtained from: Patient - History of Present Illness Timing - onset: How many months ago (1) Timing - onset during: Rest Timing - duration: Months (She has had a cough for about a month and was seen in the ER around that time and treated with doxycycline. She states she improved a bit over the following week but then has continued with the cough. She has had some wheezing at times and using a home inhaler. She has had increasing right lower chest pain in the anterolateral aspect which worsens with deep breathing and cough over the last week. It is become quite significant pain in the last day or 2. She also feels more short of breath. She denies any fever or chills.) Timing - details: Gradual onset Quality: Aching, Sharp, Pain Location: Right chest, Upper back Radiation: No: Neck Improved by: Rest Worsened by: Exertion, Inspiration. No: Movement, Palpation Associated symptoms: Shortness of air, Feeling faint / dizzy, Cough. No: Nausea, Vomiting Similar symptoms before: Diagnosis (lung infection/ pneumonia) Recently seen: Emergency Dept (1 month ago) Review of Systems Constitutional: reports: Myalgias, Fatigue. denies: Fever, Chills Nose: denies: Rhinorrhea / runny nose, Congestion Throat: denies: Sore throat Cardiac: reports: Chest pain / pressure. denies: Palpitations, Pedal edema Respiratory: reports: Dyspnea, Cough, Wheezing. denies: Hemoptysis GI: reports: Abdominal Pain (RUQ chronically), Nausea. denies: Vomiting, Diarrhea : denies: Dysuria Skin: denies: Rash, Lesions Neurologic: reports: Generalized weakness. 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 HEENT: Other Psych: Depression Musculoskeletal: Gout Derm: Other - Past Surgical History Past Surgical History: Yes General: Splenectomy Ortho: Hip replacement, Rotator cuff repair, Other - Present Medications Home Medications: Ambulatory Orders Medication Instructions Recorded Confirmed Atorvastatin Calcium 20 mg PO DAILY #30 tablet 06/07/18 10/15/18 Gabapentin [Neurontin] 100 mg PO TID #90 capsule 06/07/18 10/15/18 Lisinopril 10 mg PO DAILY #30 tablet 06/07/18 10/15/18 Omeprazole 20 mg PO DAILY 08/12/18 10/15/18 Insulin Aspart [NovoLOG] 1 - 5 unit SUBQ 08/16/18 10/15/18 0800,1200,1700,2100 #2 pen Insulin Glargine [Lantus Solostar] 10 unit SUBQ QPM #2 pen 08/16/18 10/15/18 Doxycycline Hyclate 100 mg PO BID #20 capsule 09/16/18 10/15/18 - Allergies Allergies/Adverse Reactions: Allergies Allergy/AdvReac Type Severity Reaction Status Date / Time morphine Allergy unknown Verified 10/15/18 11:58 - Social History Does the pt smoke?: Yes Smoking Status: Current every day smoker Does the pt drink ETOH?: No Does the pt have substance abuse?: No - Immunizations Immunizations are current?: Yes Immunizations: TDAP >10years/unknown - POLST Patient has POLST: No POLST Status: Full Code PD ED PE NORMAL - Vitals Vital signs reviewed: Yes - General General: Other (She does appear uncomfortable related to pain in the right chest with breathing. Her oxygenation is good. She has some wheezing noted.). No: Well developed/nourished (Very frail and cachectic.) - HEENT HEENT: Pharynx benign - Neck Neck: Supple, no meningeal sign, No adenopathy - Cardiac Cardiac: RRR, No murmur - Respiratory Respiratory: No respiratory distress (Limited deep breathing due to pain in the right), Other (coarse sounds right lower, and diffuse wheezing. ) - Abdomen Abdomen: Normal bowel sounds, Non distended, No organomegaly, Other (She is tender in the right upper quadrant with localized guarding. There is no percussion or rebound and the rest of the abdomen.) - Female Female : Deferred - Rectal Rectal: Deferred - Derm Derm: Normal color, Warm and dry - Extremities Extremities: No deformity, No edema, No calf tenderness / cord - Neuro Neuro: Alert and oriented X 3, No motor deficit, Normal speech Eye Opening: Spontaneous Motor: Obeys Commands Verbal: Oriented GCS Score: 15 Results - Vitals Vitals: Vital Signs - 24 hr 10/15/18 10/15/18 10/15/18 11:48 13:05 13:38 Temperature 36 C L Heart Rate 81 64 87 Respiratory 20 18 23 Rate Blood Pressure 187/96 H 173/104 H O2 Saturation 100 96 10/15/18 10/15/18 10/15/18 14:22 16:22 17:12 Temperature Heart Rate 77 76 79 Respiratory 16 16 18 Rate Blood Pressure 178/93 H 151/88 H 133/77 H O2 Saturation 97 93 96 10/15/18 10/15/18 10/15/18 17:58 18:18 19:20 Temperature 36.8 C Heart Rate 75 69 Respiratory 19 19 Rate Blood Pressure 140/82 H 152/81 H O2 Saturation 98 96 Oxygen O2 Source Room air - Labs Labs: Laboratory Tests 10/15/18 10/15/18 10/15/18 11:55 12:16 12:20 WBC 10.3 RBC 4.13 L Hgb 13.2 Hct 41.0 MCV 99.4 H MCH 32.0 H MCHC 32.2 RDW 14.0 Plt Count 264 MPV 10.8 Neut # (Auto) 9.0 H Lymph # (Auto) 0.8 L [place] # (Auto) 0.5 Eos # (Auto) 0.0 Baso # (Auto) 0.0 Absolute Nucleated RBC 0.00 Nucleated RBC % 0.0 Manual Slide Review Indicated WBC Morphology NORMAL APPEARANCE Platelet Estimate NORMAL (130-450,000) Platelet Morphology RARE GIANT PLATELETS RBC Morph Micro Appear NORMAL APPEARANCE Bld Gas Analysis Time Sample Site ABG pH ABG pCO2 ABG pO2 ABG HCO3 ABG Total CO2 ABG O2 Saturation ABG Base Excess Sandor Test Room Air Sodium Potassium Chloride Carbon Dioxide Anion Gap BUN Creatinine Estimated GFR (MDRD) Glucose Calcium Magnesium 1.6 L Total Bilirubin AST ALT Alkaline Phosphatase Total Protein Albumin Globulin Albumin/Globulin Ratio Lipase Urine Color YELLOW Urine Clarity CLEAR Urine pH 5.0 Ur Specific [place] <=1.005 Urine Protein NEGATIVE Urine Glucose (UA) >=1000 H Urine Ketones TRACE Urine Occult Blood NEGATIVE Urine Nitrite NEGATIVE Urine Bilirubin NEGATIVE Urine Urobilinogen 0.2 (NORMAL) Ur Leukocyte Esterase NEGATIVE Ur Microscopic Review NOT INDICATED Urine Culture Comments NOT INDICATED Ethyl Alcohol < 5.0 Serum Ketones SMALL H 10/15/18 10/15/18 12:20 15:55 WBC RBC Hgb Hct MCV MCH MCHC RDW Plt Count MPV Neut # (Auto) Lymph # (Auto) [place] # (Auto) Eos # (Auto) Baso # (Auto) Absolute Nucleated RBC Nucleated RBC % Manual Slide Review WBC Morphology Platelet Estimate Platelet Morphology RBC Morph Micro Appear Bld Gas Analysis Time 1555 Sample Site RIGHT RADIAL ABG pH 7.42 ABG pCO2 40 ABG pO2 60 L ABG HCO3 25.8 ABG Total CO2 27.0 ABG O2 Saturation 91 L ABG Base Excess 1.3 Asndor Test POSITIVE Room Air YES Sodium 120 L* Potassium 4.0 Chloride 77 L* Carbon Dioxide 26 Anion Gap 17.0 H BUN 21 H Creatinine 0.9 Estimated GFR (MDRD) 66 L Glucose 947 H* Calcium 9.1 Magnesium Total Bilirubin 1.1 H AST 40 ALT 33 Alkaline Phosphatase 262 H Total Protein 8.8 H Albumin 3.4 Globulin 5.4 H Albumin/Globulin Ratio 0.6 L Lipase 96 H Urine Color Urine Clarity Urine pH Ur Specific [place] Urine Protein Urine Glucose (UA) Urine Ketones Urine Occult Blood Urine Nitrite Urine Bilirubin Urine Urobilinogen Ur Leukocyte Esterase Ur Microscopic Review Urine Culture Comments Ethyl Alcohol Serum Ketones - Rads (name of study) chest xray Radiology: Prelim report reviewed (Pneumonic infiltrate in the right lower lobe.) abd CT Radiology: Prelim report reviewed (There is chronic pancreatitis. There are gallstones noted. There is no acute cholecystitis. There is a necrotic pneumonia with abscess formation 3 x 4 cm in the right lower lobe. There is no free fluid in the abdomen.) PD MEDICAL DECISION MAKING - ED course Complexity details: reviewed results, considered differential, d/w patient, d/w hearing consultant (Talk to Dr. kennedy our hospitalist who felt the patient needed a higher level of service due to the long abscess that would likely need draining and also given her elevated sugars and chronic pancreatitis that could be a prolonged recovery and inappropriate on that account for critical access Hospital as well as the need for specialized interventional radiology or CT surgery.) Departure - Departure Disposition: 02 Transfer Acute Care Hosp Clinical Impression: Hyperglycemia, Right-sided chest pain Pneumonia with lung abscess Qualifiers: Laterality: right Chronic pancreatitis Qualifiers: Pancreatitis type: unspecified pancreatitis type Qualified Code(s): K86.1 - Other chronic pancreatitis Condition: Stable Record reviewed to determine appropriate education?: Yes
[2018-10-15 12:26] LABS: BASOPHILS % (AUTO) 0.2 %; HGB - HEMOGLOBIN 13.2 g/dL (12.0-16.0); LYMPHOCYTES # (AUTO) 0.8 10^3/uL (1.5-3.5); LYMPHOCYTES % (AUTO) 7.9 %; MEAN CORPUSCULAR HGB CONC 32.2 g/dL (32.0-36.0); MEAN CORPUSCULAR VOLUME 99.4 fL (81.0-99.0); MEAN PLATELET VOLUME 10.8 fL (7.9-10.8); MONOCYTES # (AUTO) 0.5 10^3/uL (0.0-1.0); MONOCYTES % (AUTO) 4.4 %; NEUTROPHILS % (AUTO) 87.5 %; PLT - PLATELET COUNT 264 10^3/uL (130-450); RED BLOOD COUNT 4.13 10^6/uL (4.20-5.40); WHITE BLOOD COUNT 10.3 x10^3/uL (4.8-10.8)
[2018-10-15 12:39] LABS: ALBUMIN 3.4 g/dL (3.2-5.5); ALBUMIN/GLOBULIN RATIO 0.6 (1.0-2.2); BILIRUBIN,TOTAL 1.1 mg/dL (0.2-1.0); CALCIUM 9.1 mg/dL (8.5-10.3); CREATININE 0.9 mg/dL (0.4-1.0); TOTAL PROTEIN 8.8 g/dL (6.7-8.2)
[2018-10-15] MEDS ORDERED: SODIUM CHLORIDE 0.9% 1,000 ML IV ONE ×4 (12:43→19:26)
[2018-10-15] MEDS ORDERED: IPRATROPIUM/ALBUTEROL 3 ML NEB INH STA (12:43)
[2018-10-15] MEDS ORDERED: INSULIN REGULAR HUMAN 100 UNIT/1 ML 10 ML MDV IVP STA ×5 (12:48→19:55)
[2018-10-15] MEDS ORDERED: HYDROmorphone 1 MG/ML CARPUJECT IVP STA ×4 (12:49→19:54)
[2018-10-15 12:53] LABS: PLATELET ESTIMATE, MANUAL NORMAL (130-450,000) (NORMAL); PLATELET MORPHOLOGY RARE GIANT PLATELETS (NORMAL); RBC MORPHOLOGY (MULTIPLE) NORMAL APPEARANCE (NORMAL)
[2018-10-15 13:05] LABS: MAGNESIUM 1.6 mg/dL (1.7-2.8)
[2018-10-15] MEDS ORDERED: cefTRIAXone 1 GM VIAL IVP STA (13:09)
[2018-10-15] MEDS ORDERED: AZITHROMYCIN INJ 500 MG in SODIUM CHLORIDE 0.9% 250 ML IV STA (13:09)
[2018-10-15] MEDS ORDERED: KETOROLAC 15 MG/ML VIAL IVP STA (13:10)
--- NOTE | 2018-10-15 13:29 | XRAY Report ---
Reason: chest pain; recent pneumonia Procedure Date: 10/15/2018 Accession Number: [id number] / [id number] Procedure: XR - Chest 2 View X-Ray CPT Code: 45636 FULL RESULT: EXAM: CHEST RADIOGRAPHY EXAM DATE: 10/15/2018 01:07 PM. CLINICAL HISTORY: Chest pain; recent pneumonia. COMPARISON: CHEST 2 VIEW 09/16/2018 9:57 PM. TECHNIQUE: 1 views. FINDINGS: Lungs/Pleura: Mild right basilar parenchymal opacity consistent with pneumonia. Lungs otherwise clear other than minor left basilar atelectasis or scarring. Normal pulmonary vasculature. Mediastinum: Heart and mediastinal contours are unremarkable. Other: Multiple healed left-sided rib fractures. Embolization coils and surgical clips in left upper quadrant. IMPRESSION: 1. Findings consistent with mild right basilar pneumonia. 2. Minor left basilar atelectasis and/or scarring. RADIA
[2018-10-15 13:31] LABS: KETONES, SERUM (ACETEST) SMALL (NEGATIVE)
[2018-10-15] MEDS ORDERED: KETOROLAC 15 MG/ML VIAL ONE (14:18)
[2018-10-15] MEDS ORDERED: HYDROmorphone 1 MG/ML CARPUJECT ONE (14:18)
[2018-10-15] MEDS ORDERED: IOVERSOL 320 100 ML VIAL IVP ONE ×2 (14:25→15:56)
[2018-10-15] MEDS ORDERED: INSULIN ASPART 100 UNIT/1 ML 10 ML MDV SUBQ ONE (15:27)
--- NOTE | 2018-10-15 15:36 | CT Report ---
Reason: RUQ ABD PAIN Procedure Date: 10/15/2018 Accession Number: [id number] / [id number] Procedure: CT - Abdomen/Pelvis W CPT Code: FULL RESULT: EXAM: CT ABDOMEN AND PELVIS EXAM DATE: 10/15/2018 03:05 PM. CLINICAL HISTORY: RUQ ABD PAIN. COMPARISONS: ABDOMEN/PELVIS W/ 08/12/2018 5:54 PM. TECHNIQUE: Routine helical CT imaging was performed through the abdomen and pelvis. IV contrast: OPTI 320 80mL. Enteric contrast: No. Reconstructions: Coronal and sagittal. In accordance with CT protocol optimization, one or more of the following dose reduction techniques were utilized for this exam: automated exposure control, adjustment of mA and/or KV based on patient size, or use of iterative reconstructive technique. FINDINGS: Lung Bases: There is patchy peripheral density within the right lung base. There is no focus of heterogeneous density measuring 4 x 3 cm within the anterior basal segment of the right lower lobe. It demonstrates central hypodensity. There is some patchy groundglass opacity within the right lower lobe. There is a small, complex right pleural effusion. There is been interval improvement in previously visualized left lower lobe necrotic pneumonia. Liver: The liver demonstrates heterogeneous density without evidence of focal mass. There is portal vein thrombosis with cavernous transformation. Gallbladder/Bile Ducts: No significant abnormalities are seen. Spleen: No acute splenic abnormalities. Pancreas: There is chronic pancreatitis. There is streak artifact from coil material in the region of the pancreatic body. Adrenal Glands: The adrenal glands demonstrate no acute abnormalities. Kidneys: Normal. No masses or hydronephrosis. Peritoneal Cavity/Bowel: There is diffuse mesenteric edema. There is large volume stool within colon. No definite evidence of small bowel obstruction. No intraperitoneal free air. The appendix is not definitely seen. Pelvic Organs: The urinary bladder demonstrates no acute abnormalities. Vasculature: No acute arterial abnormalities are seen. Bones: No acute bony abnormalities. Patient has undergone internal fixation of right acetabular fracture. Other: There is diffuse subcutaneous edema. IMPRESSION: 1. Interval development of focal necrotic pneumonia measuring approximately 4 x 3 cm with possible pulmonary abscess within the right lower lobe. There is adjacent groundglass and reticular density within the right lung base with a small right pleural effusion. Interval improvement in previously visualized left lower lobe necrotic pneumonia. 2. There is chronic pancreatitis. 3. 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 4. There is diffuse mesenteric edema. 5. There is large volume stool within colon. 6. 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 RADIA
[2018-10-15] MEDS ORDERED: VANCOMYCIN PER PHARMACY 1,000 GM in SODIUM CHLORIDE 0.9% 250 ML IV STA (16:25)
[2018-10-15 16:27] LABS: ABG BASE EXCESS 1.3 mmol/L (-2.0-3.0); ABG HCO3 25.8 mmol/L (22.0-26.0); ABG OXYGEN SATURATION 91 % (94-98); ABG PCO2 40 mmHg (34-45); ABG PH 7.42 (7.35-7.45); ABG PO2 60 mmHg (80-100); ALLEN TEST POSITIVE
[2018-10-15] MEDS ORDERED: INSULIN REGULAR HUMAN 100 UNIT/1 ML 10 ML MDV ONE (16:52)
[2018-10-15] MEDS ORDERED: VANCOMYCIN 1 GM VIAL ONE (16:54)
[2018-10-15] MEDS ORDERED: SODIUM CHLORIDE 0.9% 250 ML IV ONE (16:54)
--- NOTE | 2018-10-15 19:00 | CT Report ---
Reason: lung abcess Procedure Date: 10/15/2018 Accession Number: [id number] / [id number] Procedure: CT - CHEST WO CPT Code: FULL RESULT: EXAM: CT CHEST EXAM DATE: 10/15/2018 06:35 PM. CLINICAL HISTORY: Lung abcess follow-up. COMPARISONS: CHEST W/ 08/13/2018 6:57 PM. TECHNIQUE: Routine helical CT imaging was performed through the chest. IV contrast: None. Reconstructions: Coronal and sagittal. In accordance with CT protocol optimization, one or more of the following dose reduction techniques were utilized for this exam: automated exposure control, adjustment of mA and/or KV based on patient size, or use of iterative reconstructive technique. FINDINGS: Lungs/Pleura: Previously noted lateral lingular consolidation is significantly decreased. Also, the left lower lobe and basilar consolidation is significantly decreased. The prior left basilar mixed gas and fluid collection likely representing an abscess is significantly decreased, now measuring 2.1 x 1.1 cm, previously 4.2 x 5.8 cm. However, new consolidation is seen at the inferior aspect of the right middle lobe (4/44), and within the right lower lobe (4/46). New small 1.5 cm loculated collection at the right base (6/23) with tiny focus of gas likely reflects a new right basilar abscess. Trace bibasilar pleural effusions are noted, right greater than left. Suggestion of mild right pleural thickening. No pneumothorax. Mediastinum: Normal heart size. No pericardial effusion. Mild coronary artery calcifications. Few prominent hilar lymph nodes likely reactive. No bulky lymphadenopathy. Bones: Mild osteopenia. Remote left-sided posterior rib fractures are noted. Visualized Abdomen: Vascular coils seen in the left upper abdomen. Other: None. IMPRESSION: 1. Significant decrease in the foci of consolidation of the inferior lingula and left lower lobe. 2. Previously noted left mixed gas and fluid collection likely reflecting an abscess is also significantly decreased. 3. New foci of airspace consolidation seen at the inferior aspect of the right middle lobe and right base. 4. New 1.5 cm mixed gas and fluid collection seen at the lateral aspect of the right base that could reflect a small abscess in the appropriate clinical context. Again, follow-up to radiographic resolution is recommended to exclude other possibilities. 5. Trace bibasilar pleural effusions seen, right greater than left. RADIA
[2018-10-15 19:52] VITALS: BP 147/76
== END 2018-10-15 20:15 | disposition short-term general hospital (02) ==
LOC: EDUNIT# → ED 11:42
DX: E11.65 Type 2 diabetes mellitus with hyperglycemia (principal); R07.9 Chest pain, unspecified; K86.1 Other chronic pancreatitis; I10 Essential (primary) hypertension; E78.00 Pure hypercholesterolemia, unspecified; Z79.4 Long term (current) use of insulin; Z96.649 Presence of unspecified artificial hip joint
CPT/HCPCS: 36415; 36600; 71046; 71250; 74177; 80053; 80320; 81003; 82009; 82803; 83690; 83735; 85025; 94640; 96361; 96365; 96366; 96367; 96375; 96376; 99284; A9270; J1170; J1815; J3370; Q9967; 81001; 87086; 99285

== ENCOUNTER 2018-11-20 14:59 | Outpatient (CLI) | payer MEDICAID ==
[2018-11-20 19:00] LABS: BUN - BLOOD UREA NITROGEN 22 mg/dL (6-20); CALCIUM 8.4 mg/dL (8.5-10.3); CARBON DIOXIDE - CO2 25 mmol/L (21-32); CHLORIDE 97 mmol/L (101-111); CREATININE 1.3 mg/dL (0.4-1.0); GFR - MDRD 43 (>89); GLUCOSE 86 mg/dL (70-100); SODIUM 134 mmol/L (135-145)
[2018-11-20 19:13] LABS: BASOPHILS # (AUTO) 0.1 10^3/uL (0.0-0.1); BASOPHILS % (AUTO) 1.1 %; EOSINOPHILS # (AUTO) 0.1 10^3/uL (0.0-0.7); EOSINOPHILS % (AUTO) 1.8 %; HGB - HEMOGLOBIN 11.9 g/dL (12.0-16.0); LYMPHOCYTES # (AUTO) 2.4 10^3/uL (1.5-3.5); LYMPHOCYTES % (AUTO) 32.2 %; MEAN CORPUSCULAR HEMOGLOBIN 32.2 pg (27.0-31.0); MEAN CORPUSCULAR HGB CONC 33.3 g/dL (32.0-36.0); MEAN CORPUSCULAR VOLUME 96.7 fL (81.0-99.0); MEAN PLATELET VOLUME 8.1 fL (7.9-10.8); MONOCYTES # (AUTO) 0.6 10^3/uL (0.0-1.0); MONOCYTES % (AUTO) 7.7 %; NEUTROPHILS # (AUTO) 4.2 10^3/uL (1.5-6.6); NEUTROPHILS % (AUTO) 57.2 %; PLT - PLATELET COUNT 503 10^3/uL (130-450); RED BLOOD COUNT 3.69 10^6/uL (4.20-5.40); WHITE BLOOD COUNT 7.4 x10^3/uL (4.8-10.8)
[2018-11-20 19:30] LABS: VANCOMYCIN,TROUGH < 3.5 ug/mL (10.0-20.0)
[2018-11-20 19:42] LABS: PLATELET ESTIMATE, MANUAL INCREASED (>450,000) (NORMAL); PLATELET MORPHOLOGY 1+ GIANT PLATELETS (NORMAL); RBC MORPHOLOGY (MULTIPLE) NORMAL APPEARANCE (NORMAL)
== END 2018-11-20 23:59 | disposition home or self-care (01) ==
LOC: LAB.N 14:59
PROVIDERS: ATTEND Internal Medicine Infectious Disease
DX: J85.0 Gangrene and necrosis of lung (principal)
CPT/HCPCS: 36415; 80048; 80202; 85025

== ENCOUNTER 2018-12-25 18:56 | Outpatient (CLI) | payer MEDICAID | END 2018-12-25 18:57 | disposition short-term general hospital (02) | LOC: EMS 18:56 | PROVIDERS: ATTEND Surgery | DX: R10.10 Upper abdominal pain, unspecified (principal); R11.0 Nausea; R19.7 Diarrhea, unspecified | CPT/HCPCS: A0425; A0427; A0999 ==

== ENCOUNTER 2018-12-27 18:22 | Outpatient (CLI) | payer MEDICAID | END 2018-12-27 18:23 | disposition short-term general hospital (02) | LOC: EMS 18:22 | PROVIDERS: ATTEND Surgery | DX: R10.9 Unspecified abdominal pain (principal); R11.0 Nausea | CPT/HCPCS: A0425; A0427; A0999 ==

== ENCOUNTER 2019-01-07 18:32 | Outpatient (CLI) | payer MEDICAID | END 2019-01-07 18:33 | disposition critical access hospital (66) | LOC: EMS 18:32 | PROVIDERS: ATTEND Surgery | DX: M54.5 Low back pain (principal); W18.30XA Fall on same level, unspecified, initial encounter; Y92.000 Kitchen of unspecified non-institutional (private) residence as the place of occurrence of the external cause | CPT/HCPCS: A0425; A0429; A0999 ==

== ENCOUNTER 2019-01-07 19:01 | Emergency (ER) | payer MEDICAID ==
[2019-01-07] MEDS ORDERED: KETOROLAC 60 MG/2 ML VIAL IM STA (21:08)
--- NOTE | 2019-01-07 21:10 | ED Physician Documentation ---
PD HPI BACK PAIN - Stated complaint Stated Complaint: BACK PAIN - Chief complaint Chief Complaint: Back Pain - History obtained from History obtained from: Patient - History of Present Illness Timing - onset: Today Timing - duration: Hours Timing - details: Abrupt onset Pain level max: >10 Pain level now: >10 Location: Lower Quality: Pain, Other (Burning) Associated symptoms: No: Fever, Weakness, Numbness, Incontinent of urine, Incontinent of stool Improves with: Nothing Worsened by: Movement Contributing factors: Other (Fell 2 times today.) Similar symptoms before: Diagnosis Recently seen: Not recently seen - Additional information Additional information: Is a 53-year-old woman who is well-known to this emergency department presents complaining that she fell twice today and her sister's home. The first time was this morning she was trying to walk between the sink in the [employer] maker [employer] several times for some reason her right leg just slipped out from underneath of her and she ended up falling onto her right hip. She was able to get up and ambulated on it throughout the day although it was painful and then she was feeling a little bit off balance and dizzy so she went out into the garage to check her blood sugar was only 58 so she came into eat some cereal and ended up spilling it in her right arm was jerking and next thing she knew she fell to the ground and just could not move. The cereal was still up on the counter. She complains that she has Terrible burning around the tailbone in her lower back and just things are not normal down there. Denies pain radiating down her legs. She had later on the floor until her sister came home and her sister called the ambulance. The patient says she did not have anything to take for the pain. She rates it an 8 out of 10 but cannot move at all. She denies any vomiting. She has felt her heart racing in her right chest was hurting a little earlier today. She does have a history of insulin-dependent diabetes. Denies history of seizures. She denies blood thinners although she bruises very easily. Her last tetanus vaccine was greater than 5 years ago. Patient does admit to tobacco use. Says she rarely uses alcohol does smoke marijuana. She denies use of other drugs. Review of Systems Constitutional: denies: Fever Eyes: denies: Decreased vision Cardiac: reports: Palpitations. denies: Chest pain / pressure Respiratory: reports: Dyspnea (Chronic) GI: reports: Abdominal Pain (Chronic). 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: None : None HEENT: Other Psych: Depression Musculoskeletal: Gout Derm: Other - Past Surgical History Past Surgical History: Yes General: Splenectomy Ortho: Hip replacement, Rotator cuff repair, Other - Present Medications Home Medications: Ambulatory Orders Medication Instructions Recorded Confirmed Atorvastatin Calcium 20 mg PO DAILY #30 tablet 06/07/18 10/15/18 Gabapentin [Neurontin] 100 mg PO TID #90 capsule 06/07/18 10/15/18 Lisinopril 10 mg PO DAILY #30 tablet 06/07/18 10/15/18 Omeprazole 20 mg PO DAILY 08/12/18 10/15/18 Insulin Aspart [NovoLOG] 1 - 5 unit SUBQ 08/16/18 10/15/18 0800,1200,1700,2100 #2 pen Insulin Glargine [Lantus Solostar] 10 unit SUBQ QPM #2 pen 08/16/18 10/15/18 Doxycycline Hyclate 100 mg PO BID #20 capsule 09/16/18 10/15/18 - Allergies Allergies/Adverse Reactions: Allergies Allergy/AdvReac Type Severity Reaction Status Date / Time morphine Allergy unknown Verified 01/07/19 19:12 - Social History Does the pt smoke?: Yes Smoking Status: Current every day smoker Does the pt drink ETOH?: No Does the pt have substance abuse?: No - Immunizations Immunizations are current?: Yes Immunizations: TDAP >10years/unknown - POLST Patient has POLST: No POLST Status: Full Code PD ED PE NORMAL - Vitals Vital signs reviewed: Yes - General General: Alert and oriented X 3, Other (Frail, thin 53-year-old woman laying on her back on an exam bed. She grimaces in pain anytime she attempts to move. She was sleeping soundly until I called her name and she awakened.) - HEENT HEENT: Atraumatic, PERRL, Other (No scleral icterus.) - Cardiac Cardiac: RRR, No murmur - Respiratory Respiratory: No respiratory distress - Abdomen Abdomen: Normal bowel sounds, Soft, Other (Complains of diffuse tenderness.) - Back Back: Other (Tenderness at the lumbosacral junction across the sacrum. ) - Extremities Extremities: Other (Pain in the right hip with palpation and movement. The left hip is atraumatic although she experiences pain in her back with movement of the left leg. These ankles wrists are atraumatic.) - Neuro Neuro: Alert and oriented X 3, hide tanner 2-12 intact, No motor deficit, No sensory deficit, Normal speech, Other (Symmetrical reflexes at the quadriceps.) - Psych Psych: Normal mood, Normal affect Results - Vitals Vitals: Vital Signs - 24 hr 01/07/19 01/07/19 01/07/19 19:08 22:00 23:45 Temperature 36.1 C L 36.6 C Heart Rate 87 80 76 Respiratory 18 15 16 Rate Blood Pressure 123/77 136/67 H 107/84 H O2 Saturation 94 99 97 Oxygen O2 Source Room air PD MEDICAL DECISION MAKING - ED course Complexity details: reviewed old records, re-evaluated patient, d/w patient ED course: Patient's imaging does not show any acute fracture or dislocation. She does have prior fixation hardware on the right posterior pelvis. She was given Toradol 30 mg IM. She reports that Toradol did not help her pain at all. She was sleeping again when I went up to reevaluate her. I did review her ABEBA And up until October she was receiving prescriptions for oxycodone from several providers. She says that she was in the homeless half-way in [place] and that is where she was getting that prescribed. She was kicked out of the homeless half-way because she had a marijuana ross in her pocket on 31 December and went to her sister's home. She thinks that she can return there tonight. Mom to give her 1 oxycodone 5 mg here in the emergency department and is explained to her that I cannot provide a prescription for narcotics. She stated understanding. We will make sure she can get up and ambulate. Patient ambulated after the oxycodone pill. Will require walker at home because of the pain. Departure - Departure Disposition: Home, Self Care Clinical Impression: Back pain Qualifiers: Back pain location: low back pain Chronicity: acute Back pain laterality: bilateral Sciatica presence: without sciatica Qualified Code(s): M54.5 - Low back pain Condition: Good Instructions: ED Low Back Pain Injury Follow-Up: DANYA OLIVEROS [Primary Care Provider] - Comments: Ice may help your lower back. Use the walker if needed to help you ambulate. You need to follow-up with your primary care provider for any further pain management.
--- NOTE | 2019-01-07 21:54 | XRAY Report ---
Reason: right hip pain after fall Procedure Date: 01/07/2019 Accession Number: [id number] / [id number] Procedure: XR - Hip w/Pelvis 2-3V RT CPT Code: FULL RESULT: EXAM: RIGHT HIP RADIOGRAPHY EXAM DATE: 01/07/2019 09:35 PM. CLINICAL HISTORY: Right hip pain after fall. COMPARISON: XR ACUTE ABDOMEN SERIES 09/25/2008 3:22 PM. TECHNIQUE: 2 views. FINDINGS: Bones: Prior acetabular repair obscures some detail. No sign of acute fracture. Joints: Normal. No dislocation. The hip joint space is preserved. Soft Tissues: Unremarkable. IMPRESSION: No acute fracture identified. RADIA
--- NOTE | 2019-01-07 22:19 | XRAY Report ---
Reason: pain after fall Procedure Date: 01/07/2019 Accession Number: [id number] / [id number] Procedure: XR - Lumbar Spine 2 View CPT Code: FULL RESULT: EXAM: LUMBOSACRAL SPINE RADIOGRAPHY EXAM DATE: 01/07/2019 09:35 PM. CLINICAL HISTORY: Pain after fall. COMPARISONS: None. TECHNIQUE: 3 views. FINDINGS: Alignment: Normal. No spondylolisthesis or scoliosis. Bones: Five [id number] lumbar vertebral bodies are present. No fractures or bone lesions. Disks: Normal. Disk heights are maintained. Facets: No degenerative changes. Sacroiliac Joints: Unremarkable. Soft Tissues: Multiple surgical clips are seen in the left upper quadrant. The visualized bowel gas pattern is normal. IMPRESSION: No acute displaced fracture or malalignment. RADIA
--- NOTE | 2019-01-07 22:22 | XRAY Report ---
Reason: pain after fall Procedure Date: 01/07/2019 Accession Number: [id number] / [id number] Procedure: XR - Sacrum/Coccyx CPT Code: FULL RESULT: EXAM: SACRUM AND COCCYX RADIOGRAPHY EXAM DATE: 01/07/2019 09:35 PM. HISTORY: Pain after fall. COMPARISONS: 05/17/2013 3:14 PM. TECHNIQUE: 2 views. FINDINGS: Alignment: Normal. The sacrum and coccyx are normally aligned. Bones: Normal. No fracture or bone lesion. Joints: Normal. The sacroiliac joints and visualized hips are within normal limits. Partially seen right acetabular hardware. Soft Tissues: Unremarkable. IMPRESSION: No acute displaced fracture of sacrum and coccyx. RADIA
[2019-01-07] MEDS ORDERED: oxyCODONE 5 MG TABLET PO STA (23:05)
[2019-01-07 23:45] VITALS: BP 107/84
== END 2019-01-08 00:10 | disposition home or self-care (01) ==
LOC: EDUNIT# → ED 19:01
DX: M54.5 Low back pain (principal); E11.9 Type 2 diabetes mellitus without complications; I10 Essential (primary) hypertension; Z79.4 Long term (current) use of insulin; F17.200 Nicotine dependence, unspecified, uncomplicated
CPT/HCPCS: 72100; 72220; 73502; 96372; 99284; A9270

== ENCOUNTER 2019-01-08 20:13 | Outpatient (CLI) | payer MEDICAID | END 2019-01-08 20:14 | disposition short-term general hospital (02) | LOC: EMS 20:13 | PROVIDERS: ATTEND Surgery | DX: R07.81 Pleurodynia (principal); M54.9 Dorsalgia, unspecified; R10.2 Pelvic and perineal pain; W01.0XXA Fall on same level from slipping, tripping and stumbling without subsequent striking against object, initial encounter; Y92.008 Other place in unspecified non-institutional (private) residence as the place of occurrence of the external cause | CPT/HCPCS: A0425; A0427; A0999 ==

== ENCOUNTER 2019-02-15 19:23 | Outpatient (CLI) | payer MEDICAID | END 2019-02-15 19:24 | disposition critical access hospital (66) | LOC: EMS 19:23 | PROVIDERS: ATTEND Surgery | DX: M53.3 Sacrococcygeal disorders, not elsewhere classified (principal); R10.10 Upper abdominal pain, unspecified; R73.09 Other abnormal glucose | CPT/HCPCS: A0425; A0427; A0999 ==

== ENCOUNTER 2019-02-15 19:38 | Emergency (ER) | payer MEDICAID ==
[2019-02-15 20:32] LABS: BILIRUBIN,URINE NEGATIVE (NEGATIVE); GLUCOSE, URINE (UA) >=1000 mg/dL (NEGATIVE); KETONES,URINE (UA) NEGATIVE (NEGATIVE); LEUKOCYTE ESTERASE, URINE NEGATIVE (NEGATIVE); NITRITE,URINE NEGATIVE (NEGATIVE); OCCULT BLOOD,URINE NEGATIVE (NEGATIVE); PROTEIN,URINE NEGATIVE (NEGATIVE); UROBILINOGEN,URINE 0.2 (NORMAL) E.U./dL (NORMAL)
[2019-02-15 20:36] LABS: BASOPHILS % (AUTO) 0.4 %; EOSINOPHILS % (AUTO) 0.1 %; HGB - HEMOGLOBIN 10.5 g/dL (12.0-16.0); LYMPHOCYTES # (AUTO) 1.4 10^3/uL (1.5-3.5); LYMPHOCYTES % (AUTO) 20.3 %; MEAN CORPUSCULAR HEMOGLOBIN 31.5 pg (27.0-31.0); MEAN CORPUSCULAR HGB CONC 33.1 g/dL (32.0-36.0); MEAN CORPUSCULAR VOLUME 95.2 fL (81.0-99.0); MONOCYTES # (AUTO) 0.2 10^3/uL (0.0-1.0); MONOCYTES % (AUTO) 3.6 %; NEUTROPHILS % (AUTO) 75.3 %; PLT - PLATELET COUNT 434 10^3/uL (130-450); RED BLOOD COUNT 3.33 10^6/uL (4.20-5.40); WHITE BLOOD COUNT 6.7 x10^3/uL (4.8-10.8)
[2019-02-15 20:36] LABS: CLARITY,URINE CLEAR (CLEAR)
--- NOTE | 2019-02-15 20:52 | ED Physician Documentation ---
History of Present Illness - Stated complaint Stated Complaint: FALL/ DKA - Chief complaint Chief Complaint: Back Pain - Additonal information Additional information: This is a 53-year-old female with a history of diabetes, alcoholic cirrhosis, poor compliance with her medications, who presents with a fall as well as high blood sugar. Patient states that She has not been able to find her insulin for the past 2 to 4 weeks, so has not been taking it. She also states that she fell recently landing on her coccyx, and she feels that has increased pain. She states that she has had a history of fracture of the coccyx. She currently has some nausea, denies recent vomiting. She does have some mild diffuse abdominal discomfort. She also has slight dysuria. She last drank yesterday. 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 : None HEENT: Other Psych: Depression Musculoskeletal: Gout Derm: Other - Past Surgical History Past Surgical History: Yes General: Splenectomy Ortho: Hip replacement, Rotator cuff repair, Other - Present Medications Home Medications: Ambulatory Orders Medication Instructions Recorded Confirmed Atorvastatin Calcium 20 mg PO DAILY #30 tablet 06/07/18 10/15/18 Gabapentin [Neurontin] 100 mg PO TID #90 capsule 06/07/18 10/15/18 Lisinopril 10 mg PO DAILY #30 tablet 06/07/18 10/15/18 Omeprazole 20 mg PO DAILY 08/12/18 10/15/18 Doxycycline Hyclate 100 mg PO BID #20 capsule 09/16/18 10/15/18 Insulin Aspart [NovoLOG] 1 - 5 unit SUBQ 02/16/19 0800,1200,1700,2100 #2 pen Insulin Glargine [Lantus Solostar] 10 unit SUBQ QPM #2 pen 02/16/19 - Allergies Allergies/Adverse Reactions: Allergies Allergy/AdvReac Type Severity Reaction Status Date / Time morphine Allergy unknown Verified 02/15/19 20:00 - Social History Does the pt smoke?: Yes Smoking Status: Current every day smoker Does the pt drink ETOH?: No Does the pt have substance abuse?: No - Immunizations Immunizations are current?: Yes Immunizations: TDAP >10years/unknown - POLST Patient has POLST: No POLST Status: Full Code PD ED PE NORMAL - Vitals Vital signs reviewed: Yes - General General: Alert and oriented X 3, Other (Thin and disheveled) - HEENT HEENT: PERRL - Neck Neck: Supple, no meningeal sign - Cardiac Cardiac: RRR - Respiratory Respiratory: Clear bilaterally - Abdomen Abdomen: Soft, Non tender, Non distended - Derm Derm: Warm and dry - Extremities Extremities: No deformity, Other (Coccyx is tender to palpation without external signs of trauma. Remainder of her back is atraumatic and non-tender) - Neuro Neuro: Alert and oriented X 3, No motor deficit, No sensory deficit, Normal speech Results - Vitals Vitals: Oxygen O2 Source Room air - Labs Labs: Laboratory Tests 02/15/19 02/15/19 02/15/19 20:00 20:31 20:31 WBC 6.7 RBC 3.33 L Hgb 10.5 L Hct 31.7 L MCV 95.2 MCH 31.5 H MCHC 33.1 RDW 13.0 Plt Count 434 MPV 11.0 H Neut # (Auto) 5.0 Lymph # (Auto) 1.4 L [place] # (Auto) 0.2 Eos # (Auto) 0.0 Baso # (Auto) 0.0 Absolute Nucleated RBC 0.00 Nucleated RBC % 0.0 VBG pH VBG pCO2 VBG pO2 VBG HCO3 VBG Total CO2 VBG O2 Saturation VBG Base Excess Sodium 121 L Potassium 3.9 Chloride 82 L Carbon Dioxide 22 Anion Gap 17.0 H BUN 15 Creatinine 1.0 Estimated GFR (MDRD) 58 L Glucose 1081 H* Calcium 8.6 Phosphorus Magnesium Total Bilirubin 0.2 AST 29 ALT 31 Alkaline Phosphatase 534 H Total Protein 7.1 Albumin 3.0 L Globulin 4.1 Albumin/Globulin Ratio 0.7 L Lipase 52 H Urine Color LIGHT YELLOW Urine Clarity CLEAR Urine pH 6.0 Ur Specific [place] <=1.005 Urine Protein NEGATIVE Urine Glucose (UA) >=1000 H Urine Ketones NEGATIVE Urine Occult Blood NEGATIVE Urine Nitrite NEGATIVE Urine Bilirubin NEGATIVE Urine Urobilinogen 0.2 (NORMAL) Ur Leukocyte Esterase NEGATIVE Ur Microscopic Review NOT INDICATED Urine Culture Comments NOT INDICATED Ethyl Alcohol Serum Ketones 02/15/19 02/15/19 02/15/19 21:22 21:22 22:20 WBC RBC Hgb Hct MCV MCH MCHC RDW Plt Count MPV Neut # (Auto) Lymph # (Auto) [place] # (Auto) Eos # (Auto) Baso # (Auto) Absolute Nucleated RBC Nucleated RBC % VBG pH 7.427 H VBG pCO2 37.7 L VBG pO2 117.0 H VBG HCO3 24.3 VBG Total CO2 25.5 VBG O2 Saturation 97.4 H VBG Base Excess 0.1 Sodium Potassium Chloride Carbon Dioxide Anion Gap BUN Creatinine Estimated GFR (MDRD) Glucose Calcium Phosphorus 3.0 Magnesium 1.3 L 1.2 L Total Bilirubin AST ALT Alkaline Phosphatase Total Protein Albumin Globulin Albumin/Globulin Ratio Lipase Urine Color Urine Clarity Urine pH Ur Specific [place] Urine Protein Urine Glucose (UA) Urine Ketones Urine Occult Blood Urine Nitrite Urine Bilirubin Urine Urobilinogen Ur Leukocyte Esterase Ur Microscopic Review Urine Culture Comments Ethyl Alcohol 60.2 Serum Ketones NEGATIVE 02/15/19 02/16/19 23:49 03:01 WBC RBC Hgb Hct MCV MCH MCHC RDW Plt Count MPV Neut # (Auto) Lymph # (Auto) [place] # (Auto) Eos # (Auto) Baso # (Auto) Absolute Nucleated RBC Nucleated RBC % VBG pH VBG pCO2 VBG pO2 VBG HCO3 VBG Total CO2 VBG O2 Saturation VBG Base Excess Sodium 124 L 127 L Potassium 3.8 3.6 Chloride 87 L 90 L Carbon Dioxide 20 L 26 Anion Gap 17.0 H 11.0 BUN 13 13 Creatinine 1.0 0.8 Estimated GFR (MDRD) 58 L 76 L Glucose 822 H* 540 H* Calcium 8.4 L 8.7 Phosphorus Magnesium Total Bilirubin AST ALT Alkaline Phosphatase Total Protein Albumin Globulin Albumin/Globulin Ratio Lipase Urine Color Urine Clarity Urine pH Ur Specific [place] Urine Protein Urine Glucose (UA) Urine Ketones Urine Occult Blood Urine Nitrite Urine Bilirubin Urine Urobilinogen Ur Leukocyte Esterase Ur Microscopic Review Urine Culture Comments Ethyl Alcohol Serum Ketones - Rads (name of study) Coccyx Radiology: Final report received (No acute displaced fracture of coccyx or sacrum) PD MEDICAL DECISION MAKING - ED course Complexity details: considered differential (Fracture, contusion, DKA, HHS, hyperglycemia, electrolyte disturbance, alcohol intoxication.) ED course: Pt presents after a fall, she has had many similar visits with the same complaint and negative imaging. Her exam is not concerning for fracture, and XR shows no acute displaced fracture. This is likely a contusion that can be treated with supportive care. Of greater concern is her hyperglycemia >1000. Her labs show a normal bicarbonate, no acidemia or ketones, pseudohyponatremia, and she has no mental status changes to suggest HHS. This appears to be hyperglycemia. She was given a total of 10 units of regular insulin IV, as well as 2 L crystalloid bolus. After fluids but prior to the insulin repeat BMP showed decreasing bicarbonate, so this was repeated once more several hours later and her bicarbonate is normal, anion gap normal glucose is improved to 500s, again no signs of DKA or HHS. I prescribed patient her home insulin and instructed her to monitor her glucose carefully. She has unremarkable vital signs, is tolerating PO, has a benign abdominal exam, downtrending glucose, and appears safe for discharged. She was counseled on close PCP follow up and cessation of alcohol. Departure - Departure Disposition: 01 Home, Self Care Clinical Impression: Coccyx pain, Hyperglycemia Condition: Stable Instructions: Hyperglycemia Follow-Up: DANYA OLIVEROS [Primary Care Provider] - Tomorrow (For follow up on hyperglycemia and pain) Prescriptions: Insulin Aspart [NovoLOG] 1 - 5 unit SUBQ 0800,1200,1700,2100 #2 pen Insulin Glargine [Lantus Solostar] 10 unit SUBQ QPM #2 pen Comments: You were seen today for high blood sugar and pain in your tailbone. We do not see signs of fracture of your tailbone. Your sugar was very high, please monitor it carefully and take your insulin as prescribed. Follow up with your PCP tomorrow. Return to the ED if you have any worsening symptoms such as vomiting, fever, abdominal pain, or symptoms of high blood sugar. Discharge Date/Time: 02/16/19 04:51
[2019-02-15 21:05] LABS: ALBUMIN/GLOBULIN RATIO 0.7 (1.0-2.2); BILIRUBIN,TOTAL 0.2 mg/dL (0.2-1.0); CALCIUM 8.6 mg/dL (8.5-10.3); TOTAL PROTEIN 7.1 g/dL (6.7-8.2)
[2019-02-15] MEDS ORDERED: fentaNYL 100 MCG/2 ML VIAL IVP STA (21:07)
[2019-02-15] MEDS ORDERED: LACTATED RINGERS 1,000 ML IV STA ×2 (21:08→22:11)
[2019-02-15] MEDS ORDERED: ONDANSETRON 4 MG/2 ML VIAL IVP STA (21:08)
[2019-02-15 21:26] LABS: VBG PH 7.427 (7.31-7.41)
[2019-02-15 21:27] LABS: VBG BASE EXCESS 0.1 mmol/L (-2 - +2); VBG PCO2 37.7 mmHg (41-51); VBG TOTAL CO2 25.5 mmol/L (24-29)
[2019-02-15 21:33] LABS: KETONES, SERUM (ACETEST) NEGATIVE (NEGATIVE)
[2019-02-15 21:40] LABS: MAGNESIUM 1.3 mg/dL (1.7-2.8)
--- NOTE | 2019-02-15 22:49 | XRAY Report ---
Reason: Fell again, coccyx pain Procedure Date: 02/15/2019 Accession Number: [id number] / [id number] Procedure: XR - Sacrum/Coccyx CPT Code: FULL RESULT: EXAM: SACRUM AND COCCYX RADIOGRAPHY EXAM DATE: 02/15/2019 10:08 PM. HISTORY: Fell again, coccyx pain. COMPARISONS: HIP W/PELVIS 2-3V RT 01/07/2019 9:19 PM. TECHNIQUE: 2 views. FINDINGS: Alignment: Normal. The sacrum and coccyx are normally aligned. Bones: Normal. No fracture or bone lesion. Joints: Normal. The sacroiliac joints and visualized hips are within normal limits. Soft Tissues: Unremarkable. IMPRESSION: No acute displaced fracture of sacrum and coccyx. RADIA
[2019-02-15] MEDS ORDERED: oxyCODONE 5 MG TABLET PO STA (23:43)
[2019-02-15] MEDS ORDERED: INSULIN REGULAR HUMAN 100 UNIT/1 ML 10 ML MDV IVP STA (23:44)
[2019-02-16 00:02] LABS: CALCIUM 8.4 mg/dL (8.5-10.3)
[2019-02-16] MEDS ORDERED: MAGNESIUM SULFATE 1 GM/2 ML VIAL IVP STA (00:07)
[2019-02-16] MEDS ORDERED: INSULIN REGULAR HUMAN 100 UNIT/1 ML 10 ML MDV IVP STA ×2 (01:34→03:35)
[2019-02-16 03:26] LABS: CALCIUM 8.7 mg/dL (8.5-10.3); CREATININE 0.8 mg/dL (0.4-1.0)
[2019-02-16] MEDS ORDERED: INSULIN NPH HUMAN 100 UNIT/1 ML 10 ML MDV SUBQ STA (03:36)
[2019-02-16 04:52] VITALS: BP 123/88
== END 2019-02-16 04:51 | disposition home or self-care (01) ==
LOC: EDUNIT# → ED 19:38
DX: E11.65 Type 2 diabetes mellitus with hyperglycemia (principal); T38.3X6A Underdosing of insulin and oral hypoglycemic [antidiabetic] drugs, initial encounter; Z91.138 Patient's unintentional underdosing of medication regimen for other reason; M53.3 Sacrococcygeal disorders, not elsewhere classified; W19.XXXA Unspecified fall, initial encounter; I10 Essential (primary) hypertension; K70.30 Alcoholic cirrhosis of liver without ascites; F17.200 Nicotine dependence, unspecified, uncomplicated
CPT/HCPCS: 36415; 72220; 80048; 80053; 80320; 81003; 82009; 82803; 83690; 83735; 84100; 85025; 96361; 96374; 96375; 99283; 99284; A9270; J1815; J7120; 81001; 87086

== ENCOUNTER 2019-02-19 17:01 | Outpatient (CLI) | payer MEDICAID | END 2019-02-19 17:02 | disposition critical access hospital (66) | LOC: EMS 17:01 | PROVIDERS: ATTEND Surgery | DX: R10.30 Lower abdominal pain, unspecified (principal); R11.2 Nausea with vomiting, unspecified ==

== ENCOUNTER 2019-02-19 17:31 | Emergency (ER) | payer MEDICAID ==
[2019-02-19] MEDS ORDERED: HYDROmorphone 1 MG/ML CARPUJECT IVP STA (17:52)
[2019-02-19] MEDS ORDERED: SODIUM CHLORIDE 0.9% 1,000 ML IV ONE (17:52)
[2019-02-19] MEDS ORDERED: ONDANSETRON 4 MG/2 ML VIAL IVP STA (17:52)
--- NOTE | 2019-02-19 17:55 | ED Physician Documentation ---
PD HPI ABD PAIN - Stated complaint Stated Complaint: N/V ABD PAIN - Chief complaint Chief Complaint: Abd Pain - History obtained from History obtained from: Patient - History of Present Illness Timing - onset: Today (This is a 53-year-old woman with history of chronic pancreatitis, alcoholism in remission, diabetes, she is had DKA before. She also has a history of splenic infarction status post splenectomy, history of gallstones. She had mild upper abdominal soreness that progressed throughout the day and is now more severe with nausea but no vomiting. Her blood sugar this morning was controlled but high for paramedics on transport here. She had a large but otherwise normal bowel movement this morning. She smokes marijuana daily.) Review of Systems Ten Systems: 10 systems reviewed and negative Constitutional: denies: Fever, Chills Cardiac: denies: Chest pain / pressure, Palpitations Respiratory: denies: Dyspnea, Cough GI: reports: Abdominal Pain, Nausea. 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 : None HEENT: Other Psych: Depression Musculoskeletal: Gout Derm: Other - Past Surgical History Past Surgical History: Yes General: Splenectomy Ortho: Hip replacement, Rotator cuff repair, Other - Present Medications Home Medications: Ambulatory Orders Medication Instructions Recorded Confirmed Atorvastatin Calcium 20 mg PO DAILY #30 tablet 06/07/18 10/15/18 Gabapentin [Neurontin] 100 mg PO TID #90 capsule 06/07/18 10/15/18 Lisinopril 10 mg PO DAILY #30 tablet 06/07/18 10/15/18 Omeprazole 20 mg PO DAILY 08/12/18 10/15/18 Doxycycline Hyclate 100 mg PO BID #20 capsule 09/16/18 10/15/18 Insulin Aspart [NovoLOG] 1 - 5 unit SUBQ 02/16/19 0800,1200,1700,2100 #2 pen Insulin Glargine [Lantus Solostar] 10 unit SUBQ QPM #2 pen 02/16/19 Metoclopramide [Reglan] 10 mg PO Q6H PRN #20 tablet 02/19/19 - Allergies Allergies/Adverse Reactions: Allergies Allergy/AdvReac Type Severity Reaction Status Date / Time morphine Allergy unknown Verified 02/15/19 20:00 - Social History Does the pt smoke?: Yes Smoking Status: Current every day smoker Does the pt drink ETOH?: No Does the pt have substance abuse?: No - Immunizations Immunizations are current?: Yes Immunizations: TDAP >10years/unknown - POLST Patient has POLST: No POLST Status: Full Code PD ED PE NORMAL - Vitals Vital signs reviewed: Yes - General General: Alert and oriented X 3, Other (I have known her for a long time, she certainly looks cachectic compared to what she did a few years ago. Note that her BMI is 15.) - HEENT HEENT: PERRL, EOMI - Neck Neck: Supple, no meningeal sign, No bony TTP - Cardiac Cardiac: RRR, No murmur - Respiratory Respiratory: No respiratory distress, Clear bilaterally - Abdomen Abdomen: Other (Slightly distended abdomen with normal bowel tones, mild upper abdominal tenderness that does not lateralize. No surgical signs.) - Back Back: No CVA TTP, No spinal TTP - Derm Derm: Other (Heavily nicotine stained fingers) - Extremities Extremities: No edema, No calf tenderness / cord - Neuro Neuro: Alert and oriented X 3, Normal speech Results - Vitals Vitals: Vital Signs - 24 hr 02/19/19 02/19/19 02/19/19 17:36 18:09 19:35 Temperature 36.7 C Heart Rate 69 65 58 L Respiratory 18 20 16 Rate Blood Pressure 122/86 H 117/71 119/71 O2 Saturation 97 99 100 02/19/19 21:00 Temperature Heart Rate 70 Respiratory 16 Rate Blood Pressure 126/78 O2 Saturation 100 Oxygen O2 Source Room air - EKG (time done) 1844 Rate: Rate (enter#) (58) Rhythm: NSR [place]: Normal Intervals: Normal GA QRS: Normal Ischemia: Q waves (v1/v2) Computer interpretation: Agree with computer - Labs Labs: Laboratory Tests 02/19/19 02/19/19 02/19/19 18:20 18:20 18:20 WBC 5.4 RBC 3.41 L Hgb 10.8 L Hct 32.0 L MCV 93.8 MCH 31.7 H MCHC 33.8 RDW 12.9 Plt Count 354 MPV 11.4 H Neut # (Auto) 3.3 Lymph # (Auto) 1.7 [place] # (Auto) 0.4 Eos # (Auto) 0.0 Baso # (Auto) 0.0 Absolute Nucleated RBC 0.00 Nucleated RBC % 0.0 VBG pH VBG pCO2 VBG pO2 VBG HCO3 VBG Total CO2 VBG O2 Saturation VBG Base Excess Sodium 126 L Potassium 3.9 Chloride 91 L Carbon Dioxide 24 Anion Gap 11.0 BUN 8 Creatinine 0.8 Estimated GFR (MDRD) 76 L Glucose 652 H* Calcium 8.1 L Phosphorus 2.8 Magnesium 1.5 L Total Bilirubin 0.3 AST 54 H ALT 52 Alkaline Phosphatase 531 H Troponin I High Sens 4.0 Total Protein 7.0 Albumin 2.9 L Globulin 4.1 Albumin/Globulin Ratio 0.7 L Lipase 44 Ethyl Alcohol < 5.0 Serum Ketones NEGATIVE 02/19/19 18:20 WBC RBC Hgb Hct MCV MCH MCHC RDW Plt Count MPV Neut # (Auto) Lymph # (Auto) [place] # (Auto) Eos # (Auto) Baso # (Auto) Absolute Nucleated RBC Nucleated RBC % VBG pH 7.310 VBG pCO2 48.2 VBG pO2 35.3 VBG HCO3 23.7 VBG Total CO2 25.2 VBG O2 Saturation 70.6 VBG Base Excess -2.7 L Sodium Potassium Chloride Carbon Dioxide Anion Gap BUN Creatinine Estimated GFR (MDRD) Glucose Calcium Phosphorus Magnesium Total Bilirubin AST ALT Alkaline Phosphatase Troponin I High Sens Total Protein Albumin Globulin Albumin/Globulin Ratio Lipase Ethyl Alcohol Serum Ketones - Rads (name of study) CT A/P Radiology: EMP read contemporaneously (Distended stomach, large amount of stool. Chronic pancreatitis, cholelithiasis. 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 There is no alcohol on board. Other changes seem chronic. She does have a very elevated blood sugar but no evidence of DKA on labs. She was administered IV insulin. Also fluids and potassium. I spoke with Dr. Cuenca for admission at 8:18 PM. He requested that we continue ED observation and try to get her blood sugar down into a reasonable range and try to discharge her. She was given several divided doses of IV insulin and fluids with significant improvement in her blood sugar into the range that it is to discharge her. Her pain was controlled and she passed an oral challenge. Departure - Departure Disposition: 01 Home, Self Care Clinical Impression: Abdominal pain, Tobacco dependence Diabetes mellitus with hyperglycemia Qualifiers: Diabetes mellitus type: due to underlying condition Diabetes mellitus ferry terminal agent insulin use: with care home use Qualified Code(s): E08.65 - Diabetes mellitus due to underlying condition with hyperglycemia; Z79.4 - jail (current) use of insulin Condition: Good Record reviewed to determine appropriate education?: Yes Instructions: Abdominal Pain Prescriptions: Metoclopramide [Reglan] 10 mg PO Q6H PRN #20 tablet PRN Reason: nausea or headache Comments: I suspect you have diabetic gastroparesis. It is important to keep your blood sugars controlled. Follow-up with your doctor for further evaluation and treatment. There may also be a component of what is called marijuana induced or cannabinoid induced hyperemesis. As such I recommend ceasing marijuana use. Return if worse.
[2019-02-19] MEDS ORDERED: IOVERSOL 320 100 ML VIAL IVP ONE ×2 (18:06→19:10)
[2019-02-19 18:27] LABS: VBG PCO2 48.2 mmHg (41-51); VBG PH 7.31 (7.31-7.41); VBG PO2 35.3 mmHg (25-47)
[2019-02-19 18:28] LABS: VBG BASE EXCESS -2.7 mmol/L (-2 - +2); VBG TOTAL CO2 25.2 mmol/L (24-29)
[2019-02-19 18:31] LABS: BASOPHILS % (AUTO) 0.4 %; EOSINOPHILS % (AUTO) 0.6 %; HGB - HEMOGLOBIN 10.8 g/dL (12.0-16.0); LYMPHOCYTES # (AUTO) 1.7 10^3/uL (1.5-3.5); MEAN CORPUSCULAR HEMOGLOBIN 31.7 pg (27.0-31.0); MEAN CORPUSCULAR HGB CONC 33.8 g/dL (32.0-36.0); MEAN CORPUSCULAR VOLUME 93.8 fL (81.0-99.0); MEAN PLATELET VOLUME 11.4 fL (7.9-10.8); MONOCYTES # (AUTO) 0.4 10^3/uL (0.0-1.0); MONOCYTES % (AUTO) 6.7 %; NEUTROPHILS # (AUTO) 3.3 10^3/uL (1.5-6.6); NEUTROPHILS % (AUTO) 60.1 %; PLT - PLATELET COUNT 354 10^3/uL (130-450); RED BLOOD COUNT 3.41 10^6/uL (4.20-5.40); RED CELL DISTRIBUTION WIDTH 12.9 % (12.0-15.0); WHITE BLOOD COUNT 5.4 x10^3/uL (4.8-10.8)
[2019-02-19 18:47] LABS: ALBUMIN 2.9 g/dL (3.2-5.5); ALBUMIN/GLOBULIN RATIO 0.7 (1.0-2.2); ALKALINE PHOSPHATASE 531 IU/L (42-121); ALT ALANINE AMINOTRANSFERASE 52 IU/L (10-60); AST ASPARTATE AMINOTRANSFERASE 54 IU/L (10-42); BILIRUBIN,TOTAL 0.3 mg/dL (0.2-1.0); BUN - BLOOD UREA NITROGEN 8 mg/dL (6-20); CALCIUM 8.1 mg/dL (8.5-10.3); CARBON DIOXIDE - CO2 24 mmol/L (21-32); CHLORIDE 91 mmol/L (101-111); CREATININE 0.8 mg/dL (0.4-1.0); GFR - MDRD 76 (>89); LIPASE 44 U/L (22-51); MAGNESIUM 1.5 mg/dL (1.7-2.8); PHOSPHORUS 2.8 mg/dL (2.5-4.6); SODIUM 126 mmol/L (135-145)
[2019-02-19 18:48] LABS: GLUCOSE 652 mg/dL (70-100)
[2019-02-19 19:00] LABS: KETONES, SERUM (ACETEST) NEGATIVE (NEGATIVE)
[2019-02-19] MEDS ORDERED: HYDROmorphone 2 MG/ML VIAL IVP STA (19:13)
[2019-02-19] MEDS ORDERED: INSULIN REGULAR HUMAN 100 UNIT/1 ML 10 ML MDV IVP STA ×3 (19:13→21:37)
[2019-02-19] MEDS ORDERED: POTASSIUM CHLOR 10 MEQ/100 ML 10 MEQ/100 ML BAG IV ONE (19:13)
[2019-02-19] MEDS ORDERED: METOCLOPRAMIDE 10 MG/2 ML VIAL IVP STA (19:19)
--- NOTE | 2019-02-19 19:58 | CT Report ---
Reason: IV only, upper abd pain Procedure Date: 02/19/2019 Accession Number: [id number] / [id number] Procedure: CT - Abdomen/Pelvis W CPT Code: FULL RESULT: EXAM: CT ABDOMEN AND PELVIS EXAM DATE: 02/19/2019 07:05 PM. CLINICAL HISTORY: Upper abdominal pain. COMPARISONS: ABDOMEN/PELVIS W/ 10/15/2018 2:52 PM SACRUM/COCCYX 02/15/2019 10:00 PM. TECHNIQUE: Routine helical CT imaging was performed through the abdomen and pelvis. IV contrast: OPTI 320 80ML. Enteric contrast: No. Reconstructions: Coronal and sagittal. In accordance with CT protocol optimization, one or more of the following dose reduction techniques were utilized for this exam: automated exposure control, adjustment of mA and/or KV based on patient size, or use of iterative reconstructive technique. FINDINGS: Lung Bases: Mild scarring in the basilar left lower lobe. Liver: No focal lesion evident. 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 Gallbladder/Bile Ducts: Cholelithiasis. Spleen: Small amount of lobular splenic tissue in the left upper quadrant. Pancreas: Atrophic with numerous parenchymal calcifications. No definite acute inflammation. Adrenal Glands: Unremarkable. Kidneys: Unremarkable. No hydronephrosis. Peritoneal Cavity/Bowel: Limited evaluation due to lack of enteric fat. The stomach is distended with ingested material. No evidence of a bowel obstruction. Moderate to large amount of stool throughout the colon. There is hazy edema throughout mesenteric and retroperitoneal fat. No free fluid. No free air identified. No definite acute inflammatory process. The appendix is not identified. Pelvic Organs: The bladder is unremarkable. Uterus not well seen. Vasculature: Moderate atherosclerosis. No aortic aneurysm. Embolic material in the upper abdomen. 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 Bones: There are bilateral sacral insufficiency fractures, new since 10/15/2018. Right acetabular fixation hardware. Osteopenia. Other: Cachexia. Hazy edema throughout the subcutaneous fat. IMPRESSION: 1. Distended stomach. No evidence of a small bowel obstruction. Moderate to large amount of stool. 2. Chronic pancreatitis. Cholelithiasis. 3. Sacral insufficiency fractures are new since 10/15/2018. 4. 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 5. Diffuse hazy edema throughout all visualized fat. Cachexia. RADIA
[2019-02-19] MEDS ORDERED: NS W/20 MEQ KCL 1,000 ML IV STA (20:17)
[2019-02-19 23:00] VITALS: BP 111/66
== END 2019-02-19 23:38 | disposition home or self-care (01) ==
LOC: EDUNIT# → ED 17:31
DX: R10.9 Unspecified abdominal pain (principal); E11.649 Type 2 diabetes mellitus with hypoglycemia without coma; I10 Essential (primary) hypertension; F17.200 Nicotine dependence, unspecified, uncomplicated; Z79.4 Long term (current) use of insulin
CPT/HCPCS: 36415; 74177; 80053; 80320; 82009; 82803; 83690; 83735; 84100; 84484; 85025; 93005; 96361; 96365; 96366; 96375; 96376; 99285; J1170; J1815; J2765; Q9967

== ENCOUNTER 2019-02-21 12:42 | Outpatient (CLI) | payer MEDICAID | END 2019-02-21 12:43 | disposition short-term general hospital (02) | LOC: EMS 12:42 | PROVIDERS: ATTEND Surgery | DX: R10.9 Unspecified abdominal pain (principal) | CPT/HCPCS: A0425; A0427 ==

== ENCOUNTER 2019-03-13 18:05 | Outpatient (CLI) | payer MEDICAID | END 2019-03-13 18:06 | disposition short-term general hospital (02) | LOC: EMS 18:05 | PROVIDERS: ATTEND Surgery | DX: R10.9 Unspecified abdominal pain (principal) | CPT/HCPCS: A0425; A0427; A0999 ==

== ENCOUNTER 2019-03-25 09:27 | Outpatient (CLI) | payer MEDICAID | END 2019-03-25 09:28 | disposition critical access hospital (66) | LOC: EMS 09:27 | PROVIDERS: ATTEND Surgery | DX: R10.9 Unspecified abdominal pain (principal); R11.0 Nausea; R73.09 Other abnormal glucose | CPT/HCPCS: A0425; A0427; A0999 ==

== ENCOUNTER 2019-03-25 09:59 | Emergency (ER) | payer MEDICAID ==
[2019-03-25] MEDS ORDERED: ONDANSETRON 4 MG/2 ML VIAL IVP STA (10:14)
[2019-03-25] MEDS ORDERED: SODIUM CHLORIDE 0.9% 1,000 ML IV ONE ×2 (10:14→11:34)
[2019-03-25] MEDS ORDERED: HYDROmorphone 1 MG/ML CARPUJECT IVP STA (10:14)
[2019-03-25] MEDS ORDERED: INSULIN REGULAR HUMAN 100 UNIT in SODIUM CHLORIDE 0.9% 100ML 99 ML IV STA (10:18)
--- NOTE | 2019-03-25 10:22 | ED Physician Documentation ---
PD HPI ABD PAIN - Stated complaint Stated Complaint: ABD PAIN - Chief complaint Chief Complaint: Abd Pain - History obtained from History obtained from: Patient - History of Present Illness Timing - onset: Today Timing - duration: Hours Timing - details: Gradual onset, Still present Quality: Sharp, Pain Location: Epigastric Improved by: Laying still Worsened by: Position, Palpation Associated symptoms: Nausea Similar symptoms before: Diagnosis (gallstone pancreatitis) Recently seen: Admitted - Additional information Additional information: 53-year-old female with a history of alcohol abuse, diabetes, splenic infarction and gallstone pancreatitis has recently been admitted to [facility] in [place] for her pancreatitis. She has developed abdominal pain and vomiting and has come into the emergency department today for evaluation. She is concerned about her gallbladder and stones. Review of Systems Constitutional: reports: Fatigue, Sweats. denies: Fever Eyes: denies: Decreased vision Ears: denies: Ear pain Nose: denies: Rhinorrhea / runny nose, Congestion Throat: denies: Sore throat Cardiac: denies: Chest pain / pressure, Palpitations, Pedal edema, Calf pain Respiratory: reports: Dyspnea. 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 : None HEENT: Other Psych: Depression Musculoskeletal: Gout Derm: Other - Past Surgical History Past Surgical History: Yes General: Splenectomy Ortho: Hip replacement, Rotator cuff repair, Other - Present Medications Home Medications: Ambulatory Orders Medication Instructions Recorded Confirmed Atorvastatin Calcium 20 mg PO DAILY #30 tablet 06/07/18 10/15/18 Gabapentin [Neurontin] 100 mg PO TID #90 capsule 06/07/18 10/15/18 Lisinopril 10 mg PO DAILY #30 tablet 06/07/18 10/15/18 Omeprazole 20 mg PO DAILY 08/12/18 10/15/18 Doxycycline Hyclate 100 mg PO BID #20 capsule 09/16/18 10/15/18 Insulin Aspart [NovoLOG] 1 - 5 unit SUBQ 02/16/19 0800,1200,1700,2100 #2 pen Insulin Glargine [Lantus Solostar] 10 unit SUBQ QPM #2 pen 02/16/19 Metoclopramide [Reglan] 10 mg PO Q6H PRN #20 tablet 02/19/19 - Allergies Allergies/Adverse Reactions: Allergies Allergy/AdvReac Type Severity Reaction Status Date / Time morphine Allergy unknown Verified 03/25/19 10:05 - Social History Does the pt smoke?: Yes Smoking Status: Current every day smoker Does the pt drink ETOH?: No Does the pt have substance abuse?: No - Immunizations Immunizations are current?: Yes Immunizations: TDAP >10years/unknown - POLST Patient has POLST: No POLST Status: Full Code PD ED PE NORMAL - Vitals Vital signs reviewed: Yes (hypertensive ) - General General: Alert and oriented X 3, Well developed/nourished, Other (53 y/o female who appears to have aged significantly appears thin and frail and appears to be in pain ) - HEENT HEENT: Atraumatic, PERRL, EOMI, Other (dry mucous membranes ) - Neck Neck: Supple, no meningeal sign, No bony TTP - Cardiac Cardiac: RRR, No murmur - Respiratory Respiratory: No respiratory distress, Clear bilaterally - Abdomen Abdomen: Soft, Other (mild epigastric tenderness without gaurding or rebound tenderness. 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, No motor deficit, No sensory deficit, Normal speech Eye Opening: Spontaneous Motor: Obeys Commands Verbal: Oriented GCS Score: 15 - Psych Psych: Normal mood, Normal affect Results - Vitals Vitals: Vital Signs - 24 hr 03/25/19 03/25/19 03/25/19 10:05 10:44 11:50 Temperature 36.7 C Heart Rate 83 65 64 Respiratory 18 13 14 Rate Blood Pressure 148/97 H 138/89 H 154/89 H O2 Saturation 96 97 99 03/25/19 03/25/19 03/25/19 13:00 15:00 15:43 Temperature Heart Rate 68 67 64 Respiratory 17 13 14 Rate Blood Pressure 163/95 H 154/91 H 143/87 H O2 Saturation 97 96 97 Oxygen O2 Source Room air - Labs Labs: Laboratory Tests 03/25/19 03/25/19 03/25/19 10:25 10:25 10:41 WBC 7.4 RBC 3.28 L Hgb 10.3 L Hct 30.2 L MCV 92.1 MCH 31.4 H MCHC 34.1 RDW 12.6 Plt Count 448 MPV 10.8 Neut # (Auto) 4.9 Lymph # (Auto) 1.9 [place] # (Auto) 0.6 Eos # (Auto) 0.1 Baso # (Auto) 0.0 Absolute Nucleated RBC 0.00 Nucleated RBC % 0.0 VBG pH 7.379 VBG pCO2 45.5 VBG pO2 89.7 H VBG HCO3 26.3 VBG Total CO2 27.6 VBG O2 Saturation 96.2 H VBG Base Excess 0.8 Sodium 125 L Potassium 4.1 Chloride 90 L Carbon Dioxide 26 Anion Gap 9.0 BUN 22 H Creatinine 0.9 Estimated GFR (MDRD) 66 L Glucose 627 H* Calcium 8.6 Total Bilirubin 0.3 AST 33 ALT 38 Alkaline Phosphatase 420 H Total Protein 7.7 Albumin 3.3 Globulin 4.4 H Albumin/Globulin Ratio 0.8 L Lipase 32 Urine Color Urine Clarity Urine pH Ur Specific [place] Urine Protein Urine Glucose (UA) Urine Ketones Urine Occult Blood Urine Nitrite Urine Bilirubin Urine Urobilinogen Ur Leukocyte Esterase Ur Microscopic Review Urine Culture Comments Serum Ketones NEGATIVE 03/25/19 13:10 WBC RBC Hgb Hct MCV MCH MCHC RDW Plt Count MPV Neut # (Auto) Lymph # (Auto) [place] # (Auto) Eos # (Auto) Baso # (Auto) Absolute Nucleated RBC Nucleated RBC % VBG pH VBG pCO2 VBG pO2 VBG HCO3 VBG Total CO2 VBG O2 Saturation VBG Base Excess Sodium Potassium Chloride Carbon Dioxide Anion Gap BUN Creatinine Estimated GFR (MDRD) Glucose Calcium Total Bilirubin AST ALT Alkaline Phosphatase Total Protein Albumin Globulin Albumin/Globulin Ratio Lipase Urine Color YELLOW Urine Clarity CLEAR Urine pH 5.5 Ur Specific Nucla <=1.005 Urine Protein NEGATIVE Urine Glucose (UA) >=1000 H Urine Ketones NEGATIVE Urine Occult Blood NEGATIVE Urine Nitrite NEGATIVE Urine Bilirubin NEGATIVE Urine Urobilinogen 0.2 (NORMAL) Ur Leukocyte Esterase NEGATIVE Ur Microscopic Review NOT INDICATED Urine Culture Comments NOT INDICATED Serum Ketones Procedures - IVC sono (time) 1015 Bedside IVC sono: IVC measures (cm) (0.67), IVC collapsed c insp (cm) (complete), Significant dehydration (est 3 liter deficit) PD MEDICAL DECISION MAKING - ED course Complexity details: reviewed old records, reviewed results, re-evaluated bess tavera, considered differential, d/w patient ED course: 53-year-old female with comp gated past medical history and history of diabetes comes into the emergency department today with epigastric pain she is found to be profoundly dehydrated on interrogation the inferior vena cava and her blood sugar is markedly elevated into the 600 range. She is not in DKA fluid resuscitation is begun with 2 L of saline and an insulin drip with 4 units/h. Steady progress is made with the treatment of diabetes and improvement in blood glucose. Pain is controlled with IV toradal. There is no evidence of billiary obstruction or acute pancreatits. There are multiple small gallstone on bedside ultrasound evaluation of the gallbladder. She has marked improvement with hydration and glucose control. Departure - Departure Disposition: 01 Home, Self Care Clinical Impression: Dehydration Diabetes mellitus with hyperglycemia Qualifiers: Diabetes mellitus type: type 2 Diabetes mellitus moth exterminator insulin use: with penitentiary use Qualified Code(s): E11.65 - Type 2 diabetes mellitus with hyperglycemia Condition: Stable Instructions: ED Hyperglycemia Diabetic, ED Dehydration Follow-Up: DANYA OLIVEROS [Primary Care Provider] - Discharge Date/Time: 03/25/19 16:44
[2019-03-25 10:38] LABS: BASOPHILS % (AUTO) 0.4 %; EOSINOPHILS # (AUTO) 0.1 10^3/uL (0.0-0.7); EOSINOPHILS % (AUTO) 0.7 %; HGB - HEMOGLOBIN 10.3 g/dL (12.0-16.0); LYMPHOCYTES # (AUTO) 1.9 10^3/uL (1.5-3.5); LYMPHOCYTES % (AUTO) 25.3 %; MEAN CORPUSCULAR HEMOGLOBIN 31.4 pg (27.0-31.0); MEAN CORPUSCULAR HGB CONC 34.1 g/dL (32.0-36.0); MEAN CORPUSCULAR VOLUME 92.1 fL (81.0-99.0); MEAN PLATELET VOLUME 10.8 fL (7.9-10.8); MONOCYTES # (AUTO) 0.6 10^3/uL (0.0-1.0); MONOCYTES % (AUTO) 7.4 %; NEUTROPHILS # (AUTO) 4.9 10^3/uL (1.5-6.6); NEUTROPHILS % (AUTO) 65.9 %; PLT - PLATELET COUNT 448 10^3/uL (130-450); RED BLOOD COUNT 3.28 10^6/uL (4.20-5.40); RED CELL DISTRIBUTION WIDTH 12.6 % (12.0-15.0); WHITE BLOOD COUNT 7.4 x10^3/uL (4.8-10.8)
[2019-03-25 10:47] LABS: VBG BASE EXCESS 0.8 mmol/L (-2 - +2); VBG PCO2 45.5 mmHg (41-51); VBG PH 7.379 (7.31-7.41); VBG PO2 89.7 mmHg (25-47); VBG TOTAL CO2 27.6 mmol/L (24-29)
[2019-03-25 10:56] LABS: KETONES, SERUM (ACETEST) NEGATIVE (NEGATIVE)
[2019-03-25 10:57] LABS: ALBUMIN 3.3 g/dL (3.2-5.5); ALBUMIN/GLOBULIN RATIO 0.8 (1.0-2.2); ALKALINE PHOSPHATASE 420 IU/L (42-121); ALT ALANINE AMINOTRANSFERASE 38 IU/L (10-60); AST ASPARTATE AMINOTRANSFERASE 33 IU/L (10-42); BILIRUBIN,TOTAL 0.3 mg/dL (0.2-1.0); BUN - BLOOD UREA NITROGEN 22 mg/dL (6-20); CALCIUM 8.6 mg/dL (8.5-10.3); CARBON DIOXIDE - CO2 26 mmol/L (21-32); CHLORIDE 90 mmol/L (101-111); CREATININE 0.9 mg/dL (0.4-1.0); GFR - MDRD 66 (>89); GLUCOSE 627 mg/dL (70-100); LIPASE 32 U/L (22-51); SODIUM 125 mmol/L (135-145); TOTAL PROTEIN 7.7 g/dL (6.7-8.2)
[2019-03-25] MEDS ORDERED: KETOROLAC 30 MG/ML VIAL IVP STA (13:11)
[2019-03-25 13:21] LABS: BILIRUBIN,URINE NEGATIVE (NEGATIVE); GLUCOSE, URINE (UA) >=1000 mg/dL (NEGATIVE); KETONES,URINE (UA) NEGATIVE (NEGATIVE); LEUKOCYTE ESTERASE, URINE NEGATIVE (NEGATIVE); NITRITE,URINE NEGATIVE (NEGATIVE); OCCULT BLOOD,URINE NEGATIVE (NEGATIVE); PH,URINE 5.5 PH (5.0-7.5); PROTEIN,URINE NEGATIVE (NEGATIVE); UROBILINOGEN,URINE 0.2 (NORMAL) E.U./dL (NORMAL)
[2019-03-25 13:22] LABS: CLARITY,URINE CLEAR (CLEAR)
[2019-03-25 15:43] VITALS: BP 143/87
== END 2019-03-25 16:44 | disposition home or self-care (01) ==
LOC: EDUNIT# → ED 09:59
DX: E86.0 Dehydration (principal); E11.65 Type 2 diabetes mellitus with hyperglycemia; Z79.4 Long term (current) use of insulin; K80.20 Calculus of gallbladder without cholecystitis without obstruction; I10 Essential (primary) hypertension; F17.200 Nicotine dependence, unspecified, uncomplicated
CPT/HCPCS: 36415; 80053; 81003; 82009; 82803; 83690; 85025; 96361; 96374; 96375; 99283; 99284; J1170; J1815; 81001; 87086

== ENCOUNTER 2019-04-03 12:55 | Outpatient (CLI) | payer MEDICAID | END 2019-04-03 12:56 | disposition critical access hospital (66) | LOC: EMS 12:55 | PROVIDERS: ATTEND Surgery | DX: R10.10 Upper abdominal pain, unspecified (principal) | CPT/HCPCS: A0425; A0429; A0999 ==

== ENCOUNTER 2019-04-03 13:28 | Emergency (ER) | payer MEDICAID ==
--- NOTE | 2019-04-03 13:31 | ED Physician Documentation ---
History of Present Illness - Stated complaint Stated Complaint: ABD PX - Additonal information Additional information: This is a 53-year-old female with a history of diabetes, previous alcohol use, pancreatitis, who presents with abdominal pain and nausea. Patient states that her last drink was 5 months ago, she has had some chronic recurrent abdominal pain, she states that she has been diagnosed with a stone in her pancreas, she is awaiting referral to a specialist. She states that she has had flares of pain, this most recent one occurred an hour and a half ago is located in her epigastrium and left upper quadrant, associated with nausea. She has not vomited. She denies fever. She does have some dysuria. 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 HEENT: Other Psych: Depression Musculoskeletal: Gout Derm: Other - Past Surgical History Past Surgical History: Yes General: Splenectomy Ortho: Hip replacement, Rotator cuff repair, Other - Present Medications Home Medications: Ambulatory Orders Medication Instructions Recorded Confirmed Atorvastatin Calcium 20 mg PO DAILY #30 tablet 06/07/18 10/15/18 Gabapentin [Neurontin] 100 mg PO TID #90 capsule 06/07/18 10/15/18 Lisinopril 10 mg PO DAILY #30 tablet 06/07/18 10/15/18 Omeprazole 20 mg PO DAILY 08/12/18 10/15/18 Doxycycline Hyclate 100 mg PO BID #20 capsule 09/16/18 10/15/18 Insulin Aspart [NovoLOG] 1 - 5 unit SUBQ 02/16/19 0800,1200,1700,2100 #2 pen Insulin Glargine [Lantus Solostar] 10 unit SUBQ QPM #2 pen 02/16/19 Metoclopramide [Reglan] 10 mg PO Q6H PRN #20 tablet 02/19/19 - Allergies Allergies/Adverse Reactions: Allergies Allergy/AdvReac Type Severity Reaction Status Date / Time morphine Allergy unknown Verified 04/03/19 13:36 - Social History Does the pt smoke?: Yes Smoking Status: Current every day smoker Does the pt drink ETOH?: No Does the pt have substance abuse?: No - Immunizations Immunizations are current?: Yes Immunizations: TDAP >10years/unknown - POLST Patient has POLST: No POLST Status: Full Code PD ED PE NORMAL - Vitals Vital signs reviewed: Yes - General General: Alert and oriented X 3, No acute distress - HEENT HEENT: PERRL - Neck Neck: Supple, no meningeal sign - Cardiac Cardiac: RRR, No murmur - Respiratory Respiratory: Clear bilaterally - Abdomen Abdomen: Other (Soft, nondistended. There is tenderness palpation epigastrium and left upper quadrant, no lower abdominal tenderness. No guarding.) - Derm Derm: Warm and dry - Extremities Extremities: No deformity - Neuro Neuro: Alert and oriented X 3 - Psych Psych: Normal mood, Normal affect Results - Vitals Vitals: Vital Signs - 24 hr 04/03/19 04/03/19 04/03/19 13:31 13:40 16:00 Temperature 36.9 C Heart Rate 81 67 Respiratory 20 18 Rate Blood Pressure 132/85 H 129/73 O2 Saturation 100 99 04/03/19 16:42 Temperature Heart Rate 65 Respiratory 18 Rate Blood Pressure 141/77 H O2 Saturation 99 Oxygen O2 Source Room air - Labs Labs: Laboratory Tests 04/03/19 04/03/19 04/03/19 13:39 14:04 14:04 WBC 5.3 RBC 3.48 L Hgb 10.6 L Hct 33.1 L MCV 95.1 MCH 30.5 MCHC 32.0 RDW 13.0 Plt Count 462 H MPV 10.6 Neut # (Auto) 3.1 Lymph # (Auto) 1.6 [place] # (Auto) 0.4 Eos # (Auto) 0.1 Baso # (Auto) 0.0 Absolute Nucleated RBC 0.00 Nucleated RBC % 0.0 Sodium 130 L Potassium 4.7 Chloride 99 L Carbon Dioxide 23 Anion Gap 8.0 BUN 21 H Creatinine 0.9 Estimated GFR (MDRD) 66 L Glucose 542 H* Calcium 8.7 Total Bilirubin 0.5 AST 60 H ALT 49 Alkaline Phosphatase 442 H Total Protein 8.4 H Albumin 3.5 Globulin 4.9 H Albumin/Globulin Ratio 0.7 L Lipase 21 L Urine Color YELLOW Urine Clarity CLEAR Urine pH 5.5 Ur Specific [place] 1.010 Urine Protein NEGATIVE Urine Glucose (UA) >=1000 H Urine Ketones NEGATIVE Urine Occult Blood NEGATIVE Urine Nitrite NEGATIVE Urine Bilirubin NEGATIVE Urine Urobilinogen 0.2 (NORMAL) Ur Leukocyte Esterase NEGATIVE Ur Microscopic Review NOT INDICATED Urine Culture Comments NOT INDICATED Urine HCG, Qual NEGATIVE PD MEDICAL DECISION MAKING - ED course Complexity details: considered differential (Pancreatitis, gastritis, cholecystitis, biliary obstruction, hyperglycemia, electrolyte abnormality, UTI) ED course: Patient presents with a recurrence of abdominal pain. Her abdominal exam is overall benign with some tenderness in the epigastrium but no guarding. She was given zofran, 2 L NS, and hydromorphone for her symptoms. Labs reveal a hyperglycemia without signs of HHS or DKA (bicarb and anion gap normal), stable anemia, elevated AST at 60 (similar to past values she has had), normal lipase, negative UA. No signs of acute abdominal pathology. On repeat evaluation patient states she is feeling better and wants to go home. Her abdomen is benign and she is tolerating PO. I discussed that she needs to monitor her blood sugar very carefully, use her home diabetes medication regimen faithfully, and return with any worsening symptoms. I recommended close follow up with her regular doctors. Return precautions discussed and patient was dischargd home. Departure - Departure Disposition: 01 Home, Self Care Clinical Impression: Abdominal pain Qualifiers: Abdominal location: left upper quadrant Qualified Code(s): R10.12 - Left upper quadrant pain Condition: Good Instructions: ED Abdominal Pain Unkn Cause Follow-Up: DANYA OLIVEROS [Primary Care Provider] - Within 1 week (For follow up on symptoms) Comments: You were seen today for abdominal pain, please follow-up with your primary care provider and your GI doctor on this. If you develop new or worsening symptoms return to the emergency department. Stay adequately hydrated. Discharge Date/Time: 04/03/19 17:40
[2019-04-03] MEDS ORDERED: SODIUM CHLORIDE 0.9% 1,000 ML IV STA (13:46)
[2019-04-03] MEDS ORDERED: ONDANSETRON 4 MG/2 ML VIAL IVP STA (13:46)
[2019-04-03] MEDS ORDERED: HYDROmorphone 1 MG/ML CARPUJECT IVP STA ×2 (13:46→15:49)
[2019-04-03 14:02] LABS: BILIRUBIN,URINE NEGATIVE (NEGATIVE); CLARITY,URINE CLEAR (CLEAR); GLUCOSE, URINE (UA) >=1000 mg/dL (NEGATIVE); KETONES,URINE (UA) NEGATIVE (NEGATIVE); LEUKOCYTE ESTERASE, URINE NEGATIVE (NEGATIVE); NITRITE,URINE NEGATIVE (NEGATIVE); OCCULT BLOOD,URINE NEGATIVE (NEGATIVE); PH,URINE 5.5 PH (5.0-7.5); PROTEIN,URINE NEGATIVE (NEGATIVE); UROBILINOGEN,URINE 0.2 (NORMAL) E.U./dL (NORMAL)
[2019-04-03 14:03] LABS: HCG UR QUAL NEGATIVE
[2019-04-03 14:30] LABS: BASOPHILS % (AUTO) 0.6 %; EOSINOPHILS # (AUTO) 0.1 10^3/uL (0.0-0.7); EOSINOPHILS % (AUTO) 1.7 %; HGB - HEMOGLOBIN 10.6 g/dL (12.0-16.0); LYMPHOCYTES # (AUTO) 1.6 10^3/uL (1.5-3.5); LYMPHOCYTES % (AUTO) 30.6 %; MEAN CORPUSCULAR HEMOGLOBIN 30.5 pg (27.0-31.0); MEAN CORPUSCULAR VOLUME 95.1 fL (81.0-99.0); MEAN PLATELET VOLUME 10.6 fL (7.9-10.8); MONOCYTES # (AUTO) 0.4 10^3/uL (0.0-1.0); MONOCYTES % (AUTO) 7.5 %; NEUTROPHILS # (AUTO) 3.1 10^3/uL (1.5-6.6); NEUTROPHILS % (AUTO) 59.2 %; PLT - PLATELET COUNT 462 10^3/uL (130-450); RED BLOOD COUNT 3.48 10^6/uL (4.20-5.40); WHITE BLOOD COUNT 5.3 x10^3/uL (4.8-10.8)
[2019-04-03 14:46] LABS: ALBUMIN 3.5 g/dL (3.2-5.5); ALBUMIN/GLOBULIN RATIO 0.7 (1.0-2.2); BILIRUBIN,TOTAL 0.5 mg/dL (0.2-1.0); CALCIUM 8.7 mg/dL (8.5-10.3); CREATININE 0.9 mg/dL (0.4-1.0); TOTAL PROTEIN 8.4 g/dL (6.7-8.2)
[2019-04-03] MEDS ORDERED: SODIUM CHLORIDE 0.9% 1,000 ML IV ONE (15:12)
[2019-04-03 16:43] VITALS: BP 141/77
== END 2019-04-03 17:40 | disposition home or self-care (01) ==
LOC: EDUNIT# → ED 13:28
DX: R10.12 Left upper quadrant pain (principal); R10.13 Epigastric pain; R11.0 Nausea; E11.65 Type 2 diabetes mellitus with hyperglycemia; Z79.4 Long term (current) use of insulin; R74.8 Abnormal levels of other serum enzymes; I10 Essential (primary) hypertension; D64.9 Anemia, unspecified; Z87.19 Personal history of other diseases of the digestive system; F17.200 Nicotine dependence, unspecified, uncomplicated
CPT/HCPCS: 36415; 80053; 81003; 81025; 83690; 85025; 96361; 96374; 96376; 99283; J1170; 81001; 87086

== ENCOUNTER 2019-04-04 12:22 | Outpatient (CLI) | payer MEDICAID | END 2019-04-04 12:23 | disposition short-term general hospital (02) | LOC: EMS 12:22 | PROVIDERS: ATTEND Surgery | DX: R10.10 Upper abdominal pain, unspecified (principal) | CPT/HCPCS: A0425; A0427; A0999 ==

== ENCOUNTER 2019-04-08 11:55 | Outpatient (CLI) | payer MEDICAID | END 2019-04-08 11:56 | disposition short-term general hospital (02) | LOC: EMS 11:55 | PROVIDERS: ATTEND Surgery | DX: R10.30 Lower abdominal pain, unspecified (principal) | CPT/HCPCS: A0425; A0427; A0999 ==

== ENCOUNTER 2019-04-09 16:15 | Outpatient (CLI) | payer MEDICAID | END 2019-04-09 16:16 | disposition critical access hospital (66) | LOC: EMS 16:15 | PROVIDERS: ATTEND Surgery | DX: R10.9 Unspecified abdominal pain (principal); R11.2 Nausea with vomiting, unspecified; R51 Headache; R73.09 Other abnormal glucose | CPT/HCPCS: A0425; A0429; A0999 ==

== ENCOUNTER 2019-04-09 16:45 | Emergency (ER) | payer MEDICAID ==
[2019-04-09 18:01] LABS: BASOPHILS # (AUTO) 0.1 10^3/uL (0.0-0.1); EOSINOPHILS # (AUTO) 0.1 10^3/uL (0.0-0.7); EOSINOPHILS % (AUTO) 0.9 %; HGB - HEMOGLOBIN 10.8 g/dL (12.0-16.0); LYMPHOCYTES # (AUTO) 2.5 10^3/uL (1.5-3.5); LYMPHOCYTES % (AUTO) 37.8 %; MEAN CORPUSCULAR HEMOGLOBIN 30.8 pg (27.0-31.0); MEAN CORPUSCULAR HGB CONC 32.4 g/dL (32.0-36.0); MEAN CORPUSCULAR VOLUME 94.9 fL (81.0-99.0); MEAN PLATELET VOLUME 10.4 fL (7.9-10.8); MONOCYTES # (AUTO) 0.5 10^3/uL (0.0-1.0); MONOCYTES % (AUTO) 7.7 %; NEUTROPHILS # (AUTO) 3.5 10^3/uL (1.5-6.6); NEUTROPHILS % (AUTO) 52.2 %; PLT - PLATELET COUNT 481 10^3/uL (130-450); RED BLOOD COUNT 3.51 10^6/uL (4.20-5.40); WHITE BLOOD COUNT 6.7 x10^3/uL (4.8-10.8)
[2019-04-09 18:17] LABS: ALBUMIN 3.7 g/dL (3.2-5.5); ALBUMIN/GLOBULIN RATIO 0.8 (1.0-2.2); BILIRUBIN,TOTAL 0.3 mg/dL (0.2-1.0); CALCIUM 8.8 mg/dL (8.5-10.3); TOTAL PROTEIN 8.2 g/dL (6.7-8.2)
[2019-04-09] MEDS ORDERED: SODIUM CHLORIDE 0.9% 1,000 ML IV ONE ×4 (18:49→23:12)
[2019-04-09 19:13] LABS: BILIRUBIN,URINE NEGATIVE (NEGATIVE); GLUCOSE, URINE (UA) >=1000 mg/dL (NEGATIVE); KETONES,URINE (UA) NEGATIVE (NEGATIVE); LEUKOCYTE ESTERASE, URINE NEGATIVE (NEGATIVE); NITRITE,URINE NEGATIVE (NEGATIVE); OCCULT BLOOD,URINE NEGATIVE (NEGATIVE); PH,URINE 5.5 PH (5.0-7.5); PROTEIN,URINE NEGATIVE (NEGATIVE); UROBILINOGEN,URINE 0.2 (NORMAL) E.U./dL (NORMAL)
[2019-04-09 19:18] LABS: CLARITY,URINE CLEAR (CLEAR)
[2019-04-09 19:40] LABS: VBG BASE EXCESS 0.7 mmol/L (-2 - +2); VBG PCO2 44.4 mmHg (41-51); VBG PH 7.385 (7.31-7.41); VBG TOTAL CO2 27.3 mmol/L (24-29)
[2019-04-09 19:46] LABS: HCG UR QUAL NEGATIVE
[2019-04-09 19:47] LABS: MUDS CUTOFF CONCENTRATIONS CUTOFF CONC BELOW:
[2019-04-09 20:00] LABS: AMPHETAMINE SCREEN,URINE NEGATIVE (NEGATIVE); BENZODIAZEPINES SCREEN, URINE NEGATIVE (NEGATIVE); COCAINE SCREEN URINE NEGATIVE (NEGATIVE); METHADONE SCREEN, URINE NEGATIVE (NEGATIVE); METHAMPHETAMINES SCREEN, URINE NEGATIVE (NEGATIVE); OPIATE SCREEN, URINE POSITIVE (NEGATIVE); TRICYCLIC ANTIDEPRESSANT,URINE NEGATIVE (NEGATIVE)
[2019-04-09 20:01] LABS: OXYCODONE SCREEN, URINE NEGATIVE (NEGATIVE); PROPOXYPHENE SCREEN, URINE NEGATIVE (NEGATIVE)
[2019-04-09] MEDS ORDERED: INSULIN REGULAR HUMAN 100 UNIT/1 ML 10 ML MDV SUBQ STA (20:07)
[2019-04-09] MEDS ORDERED: INSULIN REGULAR HUMAN 100 UNIT/1 ML 10 ML MDV IVP STA (20:07)
[2019-04-09] MEDS ORDERED: HYDROmorphone 1 MG/ML CARPUJECT IVP STA ×2 (20:33→23:11)
[2019-04-09] MEDS ORDERED: ONDANSETRON 4 MG/2 ML VIAL IVP STA ×2 (20:33→22:22)
--- NOTE | 2019-04-09 20:53 | ED Physician Documentation ---
PD HPI ABD PAIN - Stated complaint Stated Complaint: ABD PAIN - Chief complaint Chief Complaint: Abd Pain - History obtained from History obtained from: Patient - History of Present Illness Timing - onset: How many days ago (2) Timing - duration: Days (2) Timing - details: Gradual onset Pain level max: 8 Pain level now: 8 Quality: Aching, Pain Location: All over / everywhere Radiation: No: Chest, , Lower back, Left flank, Left shoulder, Right flank, Right shoulder, Upper back Improved by: Other (nothing) Worsened by: Moving, Palpation Associated symptoms: Nausea. No: Fever, Vomiting, Hematemesis, Diarrhea, Constipation, Melena, Hematochezia, Dysuria, Hematuria Similar symptoms before: Diagnosis (states has gallstones and is awaiting surgery at [facility]) Recently seen: Not recently seen Review of Systems Ten Systems: 10 systems reviewed and negative Constitutional: denies: Fever, Chills Nose: denies: Rhinorrhea / runny nose, Congestion Cardiac: denies: Chest pain / pressure Respiratory: denies: Cough GI: reports: Nausea Skin: denies: Rash Musculoskeletal: denies: Neck pain, Back pain Neurologic: denies: Headache PD PAST MEDICAL HISTORY - Past Medical History Past Medical History: Yes Cardiovascular: Hypertension, High cholesterol Respiratory: Asthma, Pneumonia Neuro: None Endocrine/Autoimmune: Type 2 diabetes, Other GI: GERD, Ulcers, Pancreatitis, Cirrhosis 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 : None HEENT: Other Psych: Depression Musculoskeletal: Gout Derm: Other - Past Surgical History Past Surgical History: Yes General: Splenectomy Ortho: Hip replacement, Rotator cuff repair, Other - Present Medications Home Medications: Ambulatory Orders Medication Instructions Recorded Confirmed Atorvastatin Calcium 20 mg PO DAILY #30 tablet 06/07/18 10/15/18 Gabapentin [Neurontin] 100 mg PO TID #90 capsule 06/07/18 10/15/18 Lisinopril 10 mg PO DAILY #30 tablet 06/07/18 10/15/18 Omeprazole 20 mg PO DAILY 08/12/18 10/15/18 Insulin Aspart [NovoLOG] 1 - 5 unit SUBQ 02/16/19 0800,1200,1700,2100 #2 pen Insulin Glargine [Lantus Solostar] 10 unit SUBQ QPM #2 pen 02/16/19 Ondansetron Odt [Zofran] 4 mg TL Q6H PRN 04/09/19 04/09/19 - Allergies Allergies/Adverse Reactions: Allergies Allergy/AdvReac Type Severity Reaction Status Date / Time morphine Allergy Itching Verified 04/09/19 19:40 - Social History Does the pt smoke?: Yes Smoking Status: Current every day smoker Does the pt drink ETOH?: No Does the pt have substance abuse?: No - Immunizations Immunizations are current?: Yes Immunizations: TDAP >10years/unknown - POLST Patient has POLST: No POLST Status: Full Code PD ED PE NORMAL - Vitals Vital signs reviewed: Yes - General General: Alert and oriented X 3, No acute distress, Other (thin female) - HEENT HEENT: Other (dry lips) - Neck Neck: Supple, no meningeal sign - Cardiac Cardiac: RRR - Respiratory Respiratory: No respiratory distress, Clear bilaterally - Abdomen Abdomen: Soft, Non distended, Other (mild diffuse TTP. no peritoneal signs.) - Back Back: No spinal TTP - Derm Derm: Warm and dry - Extremities Extremities: No edema - Neuro Neuro: Alert and oriented X 3 Results - Vitals Vitals: Vital Signs - 24 hr 04/09/19 04/09/19 04/09/19 16:52 19:37 21:27 Temperature 36.9 C 36.1 C L Heart Rate 91 77 73 Respiratory 15 18 16 Rate Blood Pressure 141/79 H 155/96 H 137/87 H O2 Saturation 100 99 97 04/09/19 04/09/19 22:45 23:36 Temperature Heart Rate 72 72 Respiratory 16 16 Rate Blood Pressure 147/84 H 138/80 H O2 Saturation 96 96 Oxygen O2 Source Room air - Labs Labs: Laboratory Tests 04/09/19 04/09/19 04/09/19 17:15 17:55 17:55 WBC 6.7 RBC 3.51 L Hgb 10.8 L Hct 33.3 L MCV 94.9 MCH 30.8 MCHC 32.4 RDW 13.0 Plt Count 481 H MPV 10.4 Neut # (Auto) 3.5 Lymph # (Auto) 2.5 Carroll # (Auto) 0.5 Eos # (Auto) 0.1 Baso # (Auto) 0.1 Absolute Nucleated RBC 0.00 Nucleated RBC % 0.0 VBG pH VBG pCO2 VBG pO2 VBG HCO3 VBG Total CO2 VBG O2 Saturation VBG Base Excess Sodium 126 L Potassium 4.2 Chloride 90 L Carbon Dioxide 25 Anion Gap 11.0 BUN 18 Creatinine 1.0 Estimated GFR (MDRD) 58 L Glucose 760 H* Calcium 8.8 Total Bilirubin 0.3 AST 66 H ALT 68 H Alkaline Phosphatase 419 H Total Protein 8.2 Albumin 3.7 Globulin 4.5 H Albumin/Globulin Ratio 0.8 L Lipase 37 Urine Color Urine Clarity Urine pH Ur Specific [place] Urine Protein Urine Glucose (UA) Urine Ketones Urine Occult Blood Urine Nitrite Urine Bilirubin Urine Urobilinogen Ur Leukocyte Esterase Ur Microscopic Review Urine Culture Comments Urine HCG, Qual Urine Opiates Screen Ur Oxycodone Screen Urine Methadone Screen Ur Propoxyphene Screen Ur Barbiturates Screen Ur Tricyclics Screen Ur Phencyclidine Scrn Ur Amphetamine Screen U Methamphetamines Scrn U Benzodiazepines Scrn Urine Cocaine Screen U Cannabinoids Screen Serum Ketones NEGATIVE 04/09/19 04/09/19 04/09/19 18:55 19:00 19:06 WBC RBC Hgb Hct MCV MCH MCHC RDW Plt Count MPV Neut # (Auto) Lymph # (Auto) [place] # (Auto) Eos # (Auto) Baso # (Auto) Absolute Nucleated RBC Nucleated RBC % VBG pH VBG pCO2 VBG pO2 VBG HCO3 VBG Total CO2 VBG O2 Saturation VBG Base Excess Sodium Potassium Chloride Carbon Dioxide Anion Gap BUN Creatinine Estimated GFR (MDRD) Glucose Calcium Total Bilirubin AST ALT Alkaline Phosphatase Total Protein Albumin Globulin Albumin/Globulin Ratio Lipase Urine Color YELLOW Urine Clarity CLEAR Urine pH 5.5 Ur Specific [place] <=1.005 <=1.005 Urine Protein NEGATIVE Urine Glucose (UA) >=1000 H Urine Ketones NEGATIVE Urine Occult Blood NEGATIVE Urine Nitrite NEGATIVE Urine Bilirubin NEGATIVE Urine Urobilinogen 0.2 (NORMAL) Ur Leukocyte Esterase NEGATIVE Ur Microscopic Review NOT INDICATED Urine Culture Comments NOT INDICATED Urine HCG, Qual NEGATIVE Urine Opiates Screen POSITIVE H Ur Oxycodone Screen NEGATIVE Urine Methadone Screen NEGATIVE Ur Propoxyphene Screen NEGATIVE Ur Barbiturates Screen NEGATIVE Ur Tricyclics Screen NEGATIVE Ur Phencyclidine Scrn NEGATIVE Ur Amphetamine Screen NEGATIVE U Methamphetamines Scrn NEGATIVE U Benzodiazepines Scrn NEGATIVE Urine Cocaine Screen NEGATIVE U Cannabinoids Screen POSITIVE H Serum Ketones 04/09/19 19:32 WBC RBC Hgb Hct MCV MCH MCHC RDW Plt Count MPV Neut # (Auto) Lymph # (Auto) [place] # (Auto) Eos # (Auto) Baso # (Auto) Absolute Nucleated RBC Nucleated RBC % VBG pH 7.385 VBG pCO2 44.4 VBG pO2 66.0 H VBG HCO3 26.0 VBG Total CO2 27.3 VBG O2 Saturation 92.7 H VBG Base Excess 0.7 Sodium Potassium Chloride Carbon Dioxide Anion Gap BUN Creatinine Estimated GFR (MDRD) Glucose Calcium Total Bilirubin AST ALT Alkaline Phosphatase Total Protein Albumin Globulin Albumin/Globulin Ratio Lipase Urine Color Urine Clarity Urine pH Ur Specific [place] Urine Protein Urine Glucose (UA) Urine Ketones Urine Occult Blood Urine Nitrite Urine Bilirubin Urine Urobilinogen Ur Leukocyte Esterase Ur Microscopic Review Urine Culture Comments Urine HCG, Qual Urine Opiates Screen Ur Oxycodone Screen Urine Methadone Screen Ur Propoxyphene Screen Ur Barbiturates Screen Ur Tricyclics Screen Ur Phencyclidine Scrn Ur Amphetamine Screen U Methamphetamines Scrn U Benzodiazepines Scrn Urine Cocaine Screen U Cannabinoids Screen Serum Ketones PD MEDICAL DECISION MAKING - ED course Complexity details: reviewed results, re-evaluated patient, considered dif ferential, d/w patient ED course: 53-year-old female with poorly controlled diabetes. She is hyperglycemic without ketosis. No acidosis. No altered mental status. Nausea improved. Pain improved. Has chronic pain and nausea. Blood sugar improved. Feels better after 3 L of fluid. I discussed with the hospitalist, Dr. Cuenca placing her in observation, but he does not feel that she is appropriate for this. Therefore she is kept in the emergency department and treated. Patient feels better and we will allow her to go home at this time. She will carry her insu misael with her to make sure that she is taking it as prescribed. Patient counseled regarding signs and symptoms for which I believe and urgent re- evaluation would be necessary. Patient with good understanding of and agreement to plan and is comfortable going home at this time This document was made in part using voice recognition software. While efforts are made to proofread this document, sound alike and grammatical errors may occur. Departure - Departure Disposition: 01 Home, Self Care Clinical Impression: Hyperglycemia, Dehydration Condition: Stable Instructions: ED Hyperglycemia Diabetic, ED Dehydration Follow-Up: DANYA OLIVEROS [Primary Care Provider] - Within 3 Days Comments: Continue your medication at home. Return if you worsen. Discharge Date/Time: 04/09/19 23:43
[2019-04-09 23:37] VITALS: BP 138/80
== END 2019-04-09 23:43 | disposition home or self-care (01) ==
LOC: EDUNIT# → ED 16:45
DX: E11.65 Type 2 diabetes mellitus with hyperglycemia (principal); Z79.4 Long term (current) use of insulin; E86.0 Dehydration; R10.9 Unspecified abdominal pain; R11.0 Nausea; I10 Essential (primary) hypertension; F17.200 Nicotine dependence, unspecified, uncomplicated
CPT/HCPCS: 36415; 80053; 80306; 81003; 81025; 82009; 82803; 83690; 85025; 96361; 96374; 96375; 96376; 99284; J1170; J1815; 81001; 87086

== ENCOUNTER 2019-04-11 18:06 | Outpatient (CLI) | payer MEDICAID | END 2019-04-11 18:07 | disposition critical access hospital (66) | LOC: EMS 18:06 | PROVIDERS: ATTEND Surgery | DX: R10.11 Right upper quadrant pain (principal); R11.0 Nausea | CPT/HCPCS: A0425; A0427; A0999 ==

== ENCOUNTER 2019-04-11 18:35 | Emergency (ER) | payer MEDICAID ==
[2019-04-11] MEDS ORDERED: SODIUM CHLORIDE 0.9% 1,000 ML IV ONE (18:41)
[2019-04-11] MEDS ORDERED: HYDROmorphone 1 MG/ML CARPUJECT IVP STA ×2 (18:58→20:28)
--- NOTE | 2019-04-11 19:01 | ED Physician Documentation ---
PD HPI ABD PAIN - Stated complaint Stated Complaint: RUQ/ABD PAIN - Chief complaint Chief Complaint: Abd Pain - History obtained from History obtained from: Patient - History of Present Illness Timing - onset: Today (53-year-old woman with history of alcohol abuse and cirrhosis presents with right upper quadrant pain. She has a known history of gallstones but has had some trouble finding a surgeon, presumably because she is a high risk surgical candidate. Suddenly at 4:00 today she developed sharp right upper quadrant pain radiating to the back associated with nausea. She says her last alcoholic drink was 5 or 6 months ago.) Review of Systems Ten Systems: 10 systems reviewed and negative Constitutional: denies: Fever, Chills Cardiac: denies: Chest pain / pressure, Palpitations Respiratory: denies: Dyspnea, Cough GI: reports: Abdominal Pain, Nausea. 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 HEENT: Other Psych: Depression Musculoskeletal: Gout Derm: Other - Past Surgical History Past Surgical History: Yes General: Splenectomy Ortho: Hip replacement, Rotator cuff repair, Other - Present Medications Home Medications: Ambulatory Orders Medication Instructions Recorded Confirmed Atorvastatin Calcium 20 mg PO DAILY #30 tablet 06/07/18 10/15/18 Gabapentin [Neurontin] 100 mg PO TID #90 capsule 06/07/18 10/15/18 Lisinopril 10 mg PO DAILY #30 tablet 06/07/18 10/15/18 Omeprazole 20 mg PO DAILY 08/12/18 10/15/18 Insulin Aspart [NovoLOG] 1 - 5 unit SUBQ 02/16/19 0800,1200,1700,2100 #2 pen Insulin Glargine [Lantus Solostar] 10 unit SUBQ QPM #2 pen 02/16/19 Ondansetron Odt [Zofran] 4 mg TL Q6H PRN 04/09/19 04/09/19 - Allergies Allergies/Adverse Reactions: Allergies Allergy/AdvReac Type Severity Reaction Status Date / Time No Known Drug Allergies Allergy Verified 04/11/19 18:40 - Social History Does the pt smoke?: Yes Smoking Status: Current every day smoker Does the pt drink ETOH?: No Does the pt have substance abuse?: No - Immunizations Immunizations are current?: Yes Immunizations: TDAP >10years/unknown - POLST Patient has POLST: No POLST Status: Full Code PD ED PE NORMAL - Vitals Vital signs reviewed: Yes - General General: Alert and oriented X 3 (Thin cachectic) - HEENT HEENT: PERRL, EOMI - Neck Neck: Supple, no meningeal sign, No bony TTP - Cardiac Cardiac: RRR, No murmur - Respiratory Respiratory: No respiratory distress, Clear bilaterally - Abdomen Abdomen: Other (Slightly distended abdomen, soft, tender in the right upper quadrant with equivocal Ward sign.) - Back Back: No CVA TTP, No spinal TTP - Derm Derm: Normal color, Warm and dry - Extremities Extremities: No edema, No calf tenderness / cord - Neuro Neuro: Alert and oriented X 3, Normal speech Results - Vitals Vitals: Vital Signs - 24 hr 04/11/19 04/11/19 04/11/19 18:37 19:15 20:15 Temperature 36.7 C Heart Rate 101 H 83 Respiratory 15 17 16 Rate Blood Pressure 119/78 109/68 120/65 O2 Saturation 97 100 04/11/19 04/11/19 04/11/19 20:28 20:39 21:11 Temperature Heart Rate 88 89 81 Respiratory 17 17 16 Rate Blood Pressure 118/76 O2 Saturation 98 96 97 04/11/19 04/11/19 21:29 21:34 Temperature Heart Rate 79 Respiratory 16 16 Rate Blood Pressure 113/67 O2 Saturation 99 Oxygen O2 Source Room air - Labs Labs: Laboratory Tests 04/11/19 04/11/19 04/11/19 19:00 19:00 19:00 WBC 7.8 RBC 3.33 L Hgb 10.1 L Hct 30.7 L MCV 92.2 MCH 30.3 MCHC 32.9 RDW 13.1 Plt Count 406 MPV 10.6 Neut # (Auto) 4.2 Lymph # (Auto) 3.1 Tripp # (Auto) 0.4 Eos # (Auto) 0.1 Baso # (Auto) 0.1 Absolute Nucleated RBC 0.00 Nucleated RBC % 0.0 VBG pH 7.388 VBG pCO2 37.0 L VBG pO2 44.5 VBG HCO3 21.8 L VBG Total CO2 22.9 L VBG O2 Saturation 84.3 H VBG Base Excess -2.8 L Sodium 128 L Potassium 4.4 Chloride 96 L Carbon Dioxide 21 Anion Gap 11.0 BUN 16 Creatinine 1.0 Estimated GFR (MDRD) 58 L Glucose 549 H* Calcium 8.6 Total Bilirubin 0.2 AST 112 H ALT 87 H Alkaline Phosphatase 373 H Total Protein 8.0 Albumin 3.4 Globulin 4.6 H Albumin/Globulin Ratio 0.7 L Lipase 37 Ethyl Alcohol < 5.0 Serum Ketones NEGATIVE - Rads (name of study) abd sono Radiology: Final report received (Cholelithiasis without cholecystitis. 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 She does have gallstones, but no evidence of cholecystitis on ultrasound. Her labs are pretty stable. She was treated with divided doses of pain medication also divided doses of insulin and IV fluids for her blood sugar which was out of control but without evidence of DKA. Feeling better on reevaluation and nontender just prior to discharge. Departure - Departure Disposition: Home, Self Care Clinical Impression: Abdominal pain, Chronic alcoholic pancreatitis Diabetes mellitus with hyperglycemia Qualifiers: Diabetes mellitus type: type 2 Diabetes mellitus snf insulin use: with rn long term care use Qualified Code(s): E11.65 - Type 2 diabetes mellitus with hyperglycemia Condition: Good Record reviewed to determine appropriate education?: Yes Instructions: Abdominal Pain Comments: You do have gallstones but there is no infection in your gallbladder. Your labs are stable. Follow-up with your primary care foot doctor, return for worsening symptoms. Continue to not drink alcohol. Try to keep better control of your blood sugar, its been quite high lately.
[2019-04-11 19:03] LABS: VBG PH 7.388 (7.31-7.41); VBG PO2 44.5 mmHg (25-47)
[2019-04-11 19:04] LABS: VBG BASE EXCESS -2.8 mmol/L (-2 - +2); VBG TOTAL CO2 22.9 mmol/L (24-29)
[2019-04-11 19:10] LABS: KETONES, SERUM (ACETEST) NEGATIVE (NEGATIVE)
[2019-04-11 19:11] LABS: BASOPHILS # (AUTO) 0.1 10^3/uL (0.0-0.1); BASOPHILS % (AUTO) 0.6 %; EOSINOPHILS # (AUTO) 0.1 10^3/uL (0.0-0.7); HGB - HEMOGLOBIN 10.1 g/dL (12.0-16.0); LYMPHOCYTES # (AUTO) 3.1 10^3/uL (1.5-3.5); LYMPHOCYTES % (AUTO) 39.1 %; MEAN CORPUSCULAR HEMOGLOBIN 30.3 pg (27.0-31.0); MEAN CORPUSCULAR HGB CONC 32.9 g/dL (32.0-36.0); MEAN CORPUSCULAR VOLUME 92.2 fL (81.0-99.0); MEAN PLATELET VOLUME 10.6 fL (7.9-10.8); MONOCYTES # (AUTO) 0.4 10^3/uL (0.0-1.0); MONOCYTES % (AUTO) 5.2 %; NEUTROPHILS # (AUTO) 4.2 10^3/uL (1.5-6.6); NEUTROPHILS % (AUTO) 53.7 %; PLT - PLATELET COUNT 406 10^3/uL (130-450); RED BLOOD COUNT 3.33 10^6/uL (4.20-5.40); RED CELL DISTRIBUTION WIDTH 13.1 % (12.0-15.0); WHITE BLOOD COUNT 7.8 x10^3/uL (4.8-10.8)
[2019-04-11 19:18] LABS: ALBUMIN 3.4 g/dL (3.2-5.5); ALBUMIN/GLOBULIN RATIO 0.7 (1.0-2.2); ALKALINE PHOSPHATASE 373 IU/L (42-121); ALT ALANINE AMINOTRANSFERASE 87 IU/L (10-60); AST ASPARTATE AMINOTRANSFERASE 112 IU/L (10-42); BILIRUBIN,TOTAL 0.2 mg/dL (0.2-1.0); BUN - BLOOD UREA NITROGEN 16 mg/dL (6-20); CALCIUM 8.6 mg/dL (8.5-10.3); CARBON DIOXIDE - CO2 21 mmol/L (21-32); CHLORIDE 96 mmol/L (101-111); GFR - MDRD 58 (>89); GLUCOSE 549 mg/dL (70-100); LIPASE 37 U/L (22-51); SODIUM 128 mmol/L (135-145)
[2019-04-11] MEDS ORDERED: INSULIN REGULAR HUMAN 100 UNIT/1 ML 10 ML MDV IVP STA ×3 (19:18→21:36)
--- NOTE | 2019-04-11 20:02 | Ultrasound Report ---
Reason: RUQ pain Procedure Date: 04/11/2019 Accession Number: [id number] / [id number] Procedure: US - Abdomen Limited CPT Code: FULL RESULT: EXAM: ABDOMEN ULTRASOUND LIMITED, RUQ EXAM DATE: 04/11/2019 07:19 PM. CLINICAL HISTORY: Right upper quadrant pain. COMPARISON: ABDOMEN/PELVIS W/ 02/19/2019 7:02 PM. TECHNIQUE: Real-time scanning was performed with static images obtained. FINDINGS: Liver: The liver is heterogeneously hyperechoic suggesting fibrofatty change. No masses are identified. The liver slightly enlarged and measures 18.2 cm. Main portal vein flow was not well seen. There is suggestion of cavernous transformation with clustered vessels seen replacing the esteban hepatis region. Gallbladder: Several small gallstones are seen in the gallbladder. No gallbladder wall thickening, pericholecystic fluid, or positive sonographic schrader sign is demonstrated. Biliary System: CBD measures 3-4 mm. No intrahepatic or extrahepatic ductal dilatation. Other: Right kidney is unremarkable. Visualized portions of the pancreas are unremarkable. IMPRESSION: 1. No acute intra-abdominal abnormality demonstrated. 2. Fibrofatty change of the liver with cavernous transformation of the portal vein again seen. 3. Cholelithiasis without cholecystitis or biliary dilation. RADIA
[2019-04-11] MEDS ORDERED: LACTATED RINGERS 1,000 ML IV STA (20:30)
[2019-04-11 21:35] VITALS: BP 113/67
== END 2019-04-11 22:00 | disposition home or self-care (01) ==
LOC: EDUNIT# → EDBD → ED 18:35
DX: K80.20 Calculus of gallbladder without cholecystitis without obstruction (principal); K86.0 Alcohol-induced chronic pancreatitis; F10.11 Alcohol abuse, in remission; E11.65 Type 2 diabetes mellitus with hyperglycemia; Z79.4 Long term (current) use of insulin; I10 Essential (primary) hypertension; F17.200 Nicotine dependence, unspecified, uncomplicated
CPT/HCPCS: 36415; 76705; 80053; 80320; 82009; 82803; 83690; 85025; 96361; 96374; 96376; 99283; 99284; J1170; J1815; J7120

== ENCOUNTER 2019-04-12 20:08 | Outpatient (CLI) | payer MEDICAID | END 2019-04-12 20:09 | disposition critical access hospital (66) | LOC: EMS 20:08 | PROVIDERS: ATTEND Surgery | DX: R10.9 Unspecified abdominal pain (principal); R11.0 Nausea | CPT/HCPCS: A0425; A0427; A0999 ==

== ENCOUNTER 2019-04-12 20:33 | Emergency (ER) | payer MEDICAID ==
--- NOTE | 2019-04-12 20:40 | ED Physician Documentation ---
PD HPI ABD PAIN - Stated complaint Stated Complaint: ABD PAIN - History obtained from History obtained from: Patient - History of Present Illness Timing - onset: How many weeks ago (She has been having fairly consistent right upper quadrant to epigastric pain over the last 1 or 2 weeks in particular. Is been an ongoing pain and recurrent issue with pancreatitis and cirrhosis. She has been to the ER repetitively over the last several days because of the degree of pain. She improves in the ER. There not been any prescribed home medications. Patient does have a history of prior overuse of medications with the subsequent reluctance of narcotic prescriptions.) Timing - duration: Weeks Timing - details: Gradual onset, Still present, Waxing and waning Quality: Aching, Sharp, Pain Location: RUQ, Epigastric Radiation: Upper back Improved by: No: Eating, Laying still Worsened by: Eating, Moving, Palpation. No: Breathing Associated symptoms: Nausea, Vomiting. No: Fever, Hematemesis, Diarrhea, Constipation, Chest pain Similar symptoms before: Diagnosis (Cirrhosis and chronic pancreatitis and hepatitis. She states she may have history of prior gastritis or ulcers in the past.) Recently seen: Emergency Dept Review of Systems Constitutional: denies: Fever, Chills, Myalgias Nose: denies: Rhinorrhea / runny nose, Congestion Throat: denies: Sore throat Cardiac: denies: Chest pain / pressure Respiratory: denies: Dyspnea, Cough GI: reports: Abdominal Pain, Nausea, Vomiting. denies: Abdominal Swelling, Constipation, Diarrhea, Bloody / black stool : denies: Dysuria, Frequency Skin: denies: Rash, Lesions Neurologic: reports: Generalized weakness. 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 : None HEENT: Other Psych: Depression Musculoskeletal: Gout Derm: Other - Past Surgical History Past Surgical History: Yes General: Splenectomy Ortho: Hip replacement, Rotator cuff repair, Other - Present Medications Home Medications: Ambulatory Orders Medication Instructions Recorded Confirmed Atorvastatin Calcium 20 mg PO DAILY #30 tablet 06/07/18 10/15/18 Gabapentin [Neurontin] 100 mg PO TID #90 capsule 06/07/18 10/15/18 Lisinopril 10 mg PO DAILY #30 tablet 06/07/18 10/15/18 Omeprazole 20 mg PO DAILY 08/12/18 10/15/18 Insulin Aspart [NovoLOG] 1 - 5 unit SUBQ 02/16/19 0800,1200,1700,2100 #2 pen Insulin Glargine [Lantus Solostar] 10 unit SUBQ QPM #2 pen 02/16/19 Ondansetron Odt [Zofran] 4 mg TL Q6H PRN 04/09/19 04/09/19 Famotidine 20 mg PO DAILY #30 tablet 04/13/19 Naproxen 375 mg PO BID #20 tablet 04/13/19 Sucralfate [Carafate] 1 gm PO TID #20 tablet 04/13/19 oxyCODONE [Roxicodone] 5 mg PO TID PRN #25 tablet 04/13/19 - Allergies Allergies/Adverse Reactions: Allergies Allergy/AdvReac Type Severity Reaction Status Date / Time No Known Drug Allergies Allergy Verified 04/12/19 20:39 - Social History Does the pt smoke?: Yes Smoking Status: Current every day smoker Does the pt drink ETOH?: No Does the pt have substance abuse?: No - Immunizations Immunizations are current?: Yes Immunizations: TDAP >10years/unknown - POLST Patient has POLST: No POLST Status: Full Code PD ED PE NORMAL - Vitals Vital signs reviewed: Yes - General General: Alert and oriented X 3, Well developed/nourished, Other (cachectic. Appears in considerable pain. Anxious. ) - HEENT HEENT: PERRL (nonicteric), Pharynx benign - Neck Neck: Supple, no meningeal sign, No adenopathy - Cardiac Cardiac: RRR, No murmur - Respiratory Respiratory: Clear bilaterally - Abdomen Abdomen: Soft, No organomegaly, Other (mild general distension. Not tight. She is markedly tender in the epigastric to right upper quadrant area. There is no rash or sores noted. There is some percussion tenderness localized there. There is no general abdominal nor rebound tenderness but only localized in the right upper quadrant.). No: Normal bowel sounds (diminished) Results - Vitals Vitals: Vital Signs - 24 hr 10/14/19 10/14/19 10/14/19 20:39 21:19 22:21 Temperature 36.9 C Heart Rate 97 82 77 Respiratory 17 17 17 Rate Blood Pressure 140/98 H 129/77 104/60 O2 Saturation 97 97 97 04/12/19 04/13/19 04/13/19 22:54 00:00 01:09 Temperature Heart Rate 72 70 62 Respiratory 17 17 16 Rate Blood Pressure 117/70 122/73 128/70 O2 Saturation 98 97 97 Oxygen O2 Source Room air - Labs Labs: Laboratory Tests 04/12/19 04/12/19 04/12/19 20:48 20:48 21:10 WBC 7.5 RBC 3.18 L Hgb 9.8 L Hct 29.5 L MCV 92.8 MCH 30.8 MCHC 33.2 RDW 13.2 Plt Count 384 MPV 10.6 Neut # (Auto) 3.5 Lymph # (Auto) 3.3 [place] # (Auto) 0.4 Eos # (Auto) 0.2 Baso # (Auto) 0.1 Absolute Nucleated RBC 0.00 Nucleated RBC % 0.0 Sodium 132 L Potassium 4.5 Chloride 97 L Carbon Dioxide 23 Anion Gap 12.0 BUN 17 Creatinine 1.0 Estimated GFR (MDRD) 58 L Glucose 396 H Lactic Acid 2.6 H Calcium 8.3 L Magnesium 1.3 L Total Bilirubin 0.5 AST 109 H ALT 81 H Alkaline Phosphatase 331 H Total Protein 7.5 Albumin 3.4 Globulin 4.1 Albumin/Globulin Ratio 0.8 L Lipase 29 Urine Color Urine Clarity Urine pH Ur Specific [place] Urine Protein Urine Glucose (UA) Urine Ketones Urine Occult Blood Urine Nitrite Urine Bilirubin Urine Urobilinogen Ur Leukocyte Esterase Ur Microscopic Review Urine Culture Comments Serum Ketones NEGATIVE 04/12/19 22:53 WBC RBC Hgb Hct MCV MCH MCHC RDW Plt Count MPV Neut # (Auto) Lymph # (Auto) [place] # (Auto) Eos # (Auto) Baso # (Auto) Absolute Nucleated RBC Nucleated RBC % Sodium Potassium Chloride Carbon Dioxide Anion Gap BUN Creatinine Estimated GFR (MDRD) Glucose Lactic Acid Calcium Magnesium Total Bilirubin AST ALT Alkaline Phosphatase Total Protein Albumin Globulin Albumin/Globulin Ratio Lipase Urine Color YELLOW Urine Clarity CLEAR Urine pH 5.5 Ur Specific [place] 1.010 Urine Protein NEGATIVE Urine Glucose (UA) >=1000 H Urine Ketones NEGATIVE Urine Occult Blood NEGATIVE Urine Nitrite NEGATIVE Urine Bilirubin NEGATIVE Urine Urobilinogen 0.2 (NORMAL) Ur Leukocyte Esterase NEGATIVE Ur Microscopic Review NOT INDICATED Urine Culture Comments NOT INDICATED Serum Ketones PD MEDICAL DECISION MAKING - ED course Complexity details: reviewed old records (Her symptoms are consistent with pancreatitis and liver tenderness. Her lipase is normal here and has been the last few visits. That does not exclude chronic pancreatitis and the pain from that. However he does not look acutely interventional. We will give her some IV fluids and medicines for pain similar to her recent visits. Also consider holding her statin if there is some pancreatic inflammation going on as it may add to contribute to it.), reviewed results, considered differential, d/w patient, d/w family (I spoke on the phone at length with the patient's sister with whom the patient has been staying now for about 6 weeks. Her sister is working hard at getting the insurance referrals for evaluation of her pancreatitis. Apparently did a were referred to the gastroenterology for evaluation of pancreatic duct stenting or evaluation. Also cholecystectomy. She had been at [facility] but the GI there referred them on to a larger facility. [facility] not take her insurance. They are working on the referrals to at this time. Her sister was concerned about the ongoing pain in return visits to the ER. She asked that we give her prescription to allow better pain control at home and more appropriate utilization of resources so she does not need to come back to the ER. She asked about potential transfer to the but I described really not having a acute interventional criteria and so would need to continue with the outpatient referral process. That can change if there is signs of acute infectious or inflammatory condition as well so for the patient to return if she has fevers or other consistent worsening. Hopefully some prescribed medication will allow for pain control enough at home pending further follow-up. Her sister is cognizant of our reluctance on prescribing ongoing pain medication but I said I would prescribe some given the current scenario.) Departure - Departure Disposition: 01 Home, Self Care Clinical Impression: Upper abdominal pain Chronic pancreatitis Qualifiers: Pancreatitis type: unspecified pancreatitis type Qualified Code(s): K86.1 - Other chronic pancreatitis Cholelithiasis Qualifiers: Cholelithiasis location: gallbladder Cholecystitis presence: without cholecystitis Biliary obstruction: without biliary obstruction Qualified Code(s): K80.20 - Calculus of gallbladder without cholecystitis without obstruction Condition: Stable Record reviewed to determine appropriate education?: Yes Instructions: Abdominal Pain Follow-Up: DANYA OLIVEROS [Primary Care Provider] - Prescriptions: Famotidine 20 mg PO DAILY #30 tablet Naproxen 375 mg PO BID #20 tablet oxyCODONE [Roxicodone] 5 mg PO TID PRN #25 tablet PRN Reason: Pain Sucralfate [Carafate] 1 gm PO TID #20 tablet Comments: I will write a prescription for some pain medication short-term. Hopefully this will improve the pain. He will be unlikely to eliminate it but hopefully make it tolerable. Oxycodone 3 times a day as needed for pain. Follow-up with your primary care and also continue working with the GI for follow-up. Your lipase levels are normal the last several visits. Your blood count is normal as well. The ultrasound from yesterday did not show any signs of acute inflammation of the gallbladder. Certainly can be radiating pain from your pancreas and also from the gallstones but they do not look emergently inflamed to require prompt surgery. Therefore the referral to the GI at the still needs to be in progress. Stop your cholesterol medicine as that can sometimes add to inflammation of the pancreas. Consider holding your lisinopril as well for now. Other alternatives for the upper abdominal pain could be some irritation of the stomach or initial intestine. Use famotidine acid reducing medicine daily for the next month. We can also add naproxen anti-inflammatory to help try to reduce some of the presumed inflammation in the pancreas found on prior imaging (such as Ken, with chronic pancreatitis). Discharge Date/Time: 04/13/19 01:10
[2019-04-12] MEDS ORDERED: HALOPERIDOL 5 MG/ML VIAL IVP ONE (20:58)
[2019-04-12] MEDS ORDERED: HYDROmorphone 2 MG/ML VIAL IVP STA (20:58)
[2019-04-12] MEDS ORDERED: SODIUM CHLORIDE 0.9% 1,000 ML IV ONE (20:58)
[2019-04-12] MEDS ORDERED: FAMOTIDINE 20 MG/2 ML VIAL IVP STA (20:58)
[2019-04-12] MEDS ORDERED: LIDOCAINE VISCOUS 2% 15 ML UDC MM STA (21:00)
[2019-04-12] MEDS ORDERED: MAG HYDROX/AL HYDROX/SIMETH 30 ML UDC PO STA (21:00)
[2019-04-12 21:12] LABS: BASOPHILS # (AUTO) 0.1 10^3/uL (0.0-0.1); BASOPHILS % (AUTO) 1.2 %; EOSINOPHILS # (AUTO) 0.2 10^3/uL (0.0-0.7); EOSINOPHILS % (AUTO) 2.1 %; HGB - HEMOGLOBIN 9.8 g/dL (12.0-16.0); LYMPHOCYTES # (AUTO) 3.3 10^3/uL (1.5-3.5); LYMPHOCYTES % (AUTO) 44.5 %; MEAN CORPUSCULAR HEMOGLOBIN 30.8 pg (27.0-31.0); MEAN CORPUSCULAR HGB CONC 33.2 g/dL (32.0-36.0); MEAN CORPUSCULAR VOLUME 92.8 fL (81.0-99.0); MEAN PLATELET VOLUME 10.6 fL (7.9-10.8); MONOCYTES # (AUTO) 0.4 10^3/uL (0.0-1.0); MONOCYTES % (AUTO) 5.6 %; NEUTROPHILS # (AUTO) 3.5 10^3/uL (1.5-6.6); NEUTROPHILS % (AUTO) 46.3 %; PLT - PLATELET COUNT 384 10^3/uL (130-450); RED BLOOD COUNT 3.18 10^6/uL (4.20-5.40); RED CELL DISTRIBUTION WIDTH 13.2 % (12.0-15.0); WHITE BLOOD COUNT 7.5 x10^3/uL (4.8-10.8)
[2019-04-12 21:16] LABS: KETONES, SERUM (ACETEST) NEGATIVE (NEGATIVE)
[2019-04-12 21:22] LABS: ALBUMIN 3.4 g/dL (3.2-5.5); ALBUMIN/GLOBULIN RATIO 0.8 (1.0-2.2); ALKALINE PHOSPHATASE 331 IU/L (42-121); ALT ALANINE AMINOTRANSFERASE 81 IU/L (10-60); AST ASPARTATE AMINOTRANSFERASE 109 IU/L (10-42); BILIRUBIN,TOTAL 0.5 mg/dL (0.2-1.0); BUN - BLOOD UREA NITROGEN 17 mg/dL (6-20); CALCIUM 8.3 mg/dL (8.5-10.3); CARBON DIOXIDE - CO2 23 mmol/L (21-32); CHLORIDE 97 mmol/L (101-111); GFR - MDRD 58 (>89); GLUCOSE 396 mg/dL (70-100); LIPASE 29 U/L (22-51); MAGNESIUM 1.3 mg/dL (1.7-2.8); SODIUM 132 mmol/L (135-145); TOTAL PROTEIN 7.5 g/dL (6.7-8.2)
[2019-04-12] MEDS ORDERED: LACTATED RINGERS 1,000 ML IV STA (22:04)
[2019-04-12 23:11] LABS: BILIRUBIN,URINE NEGATIVE (NEGATIVE); CLARITY,URINE CLEAR (CLEAR); GLUCOSE, URINE (UA) >=1000 mg/dL (NEGATIVE); KETONES,URINE (UA) NEGATIVE (NEGATIVE); LEUKOCYTE ESTERASE, URINE NEGATIVE (NEGATIVE); NITRITE,URINE NEGATIVE (NEGATIVE); OCCULT BLOOD,URINE NEGATIVE (NEGATIVE); PH,URINE 5.5 PH (5.0-7.5); PROTEIN,URINE NEGATIVE (NEGATIVE); UROBILINOGEN,URINE 0.2 (NORMAL) E.U./dL (NORMAL)
[2019-04-12] MEDS ORDERED: HYDROmorphone 1 MG/ML CARPUJECT IVP STA (23:55)
[2019-04-12] MEDS ORDERED: oxyCODONE/ACET 5/325 Prepack 4 PO STA (23:55)
[2019-04-13 01:10] VITALS: BP 128/70
== END 2019-04-13 01:10 | disposition home or self-care (01) ==
LOC: EDUNIT# → ED 20:33
DX: K86.1 Other chronic pancreatitis (principal); K80.20 Calculus of gallbladder without cholecystitis without obstruction; Z87.11 Personal history of peptic ulcer disease; I10 Essential (primary) hypertension; E11.9 Type 2 diabetes mellitus without complications; Z79.4 Long term (current) use of insulin; F17.200 Nicotine dependence, unspecified, uncomplicated
CPT/HCPCS: 36415; 80053; 81003; 82009; 83605; 83690; 83735; 85025; 96361; 96374; 96376; 99284; A9270; J1170; J7120; 81001; 87086

== ENCOUNTER 2019-04-20 11:24 | Outpatient (CLI) | payer MEDICAID | END 2019-04-20 11:25 | disposition critical access hospital (66) | LOC: EMS 11:24 | PROVIDERS: ATTEND Surgery | DX: R10.9 Unspecified abdominal pain (principal); R11.0 Nausea | CPT/HCPCS: A0425; A0427; A0999 ==

== ENCOUNTER 2019-04-20 11:56 | Emergency (ER) | payer MEDICAID ==
[2019-04-20 12:16] VITALS: BP 120/70
[2019-04-20 12:23] LABS: BASOPHILS # (AUTO) 0.1 10^3/uL (0.0-0.1); BASOPHILS % (AUTO) 1.2 %; EOSINOPHILS # (AUTO) 0.1 10^3/uL (0.0-0.7); LYMPHOCYTES # (AUTO) 2.2 10^3/uL (1.5-3.5); LYMPHOCYTES % (AUTO) 35.8 %; MEAN CORPUSCULAR HEMOGLOBIN 30.2 pg (27.0-31.0); MEAN CORPUSCULAR HGB CONC 32.2 g/dL (32.0-36.0); MEAN PLATELET VOLUME 10.4 fL (7.9-10.8); MONOCYTES # (AUTO) 0.5 10^3/uL (0.0-1.0); MONOCYTES % (AUTO) 7.8 %; NEUTROPHILS # (AUTO) 3.3 10^3/uL (1.5-6.6); NEUTROPHILS % (AUTO) 53.9 %; PLT - PLATELET COUNT 453 10^3/uL (130-450); RED BLOOD COUNT 3.31 10^6/uL (4.20-5.40); RED CELL DISTRIBUTION WIDTH 13.2 % (12.0-15.0)
[2019-04-20 12:27] LABS: KETONES, SERUM (ACETEST) NEGATIVE (NEGATIVE)
[2019-04-20 12:34] LABS: ALBUMIN 3.5 g/dL (3.2-5.5); ALBUMIN/GLOBULIN RATIO 0.8 (1.0-2.2); ALKALINE PHOSPHATASE 400 IU/L (42-121); ALT ALANINE AMINOTRANSFERASE 82 IU/L (10-60); AST ASPARTATE AMINOTRANSFERASE 77 IU/L (10-42); BILIRUBIN,TOTAL 0.5 mg/dL (0.2-1.0); BUN - BLOOD UREA NITROGEN 15 mg/dL (6-20); CALCIUM 8.7 mg/dL (8.5-10.3); CARBON DIOXIDE - CO2 27 mmol/L (21-32); CHLORIDE 100 mmol/L (101-111); CREATININE 0.7 mg/dL (0.4-1.0); GFR - MDRD 88 (>89); GLUCOSE 342 mg/dL (70-100); LIPASE 24 U/L (22-51); SODIUM 134 mmol/L (135-145); TOTAL PROTEIN 7.8 g/dL (6.7-8.2)
[2019-04-20 12:41] LABS: VBG BASE EXCESS 0.9 mmol/L (-2 - +2); VBG PCO2 49.8 mmHg (41-51); VBG PH 7.351 (7.31-7.41); VBG TOTAL CO2 28.5 mmol/L (24-29)
[2019-04-20] MEDS ORDERED: HYDROmorphone 1 MG/ML CARPUJECT IVP STA (12:44)
--- NOTE | 2019-04-20 12:47 | ED Physician Documentation ---
PD HPI ABD PAIN - Stated complaint Stated Complaint: ABD PX - Chief complaint Chief Complaint: Abd Pain - History obtained from History obtained from: Patient - History of Present Illness Timing - onset: Other (53-year-old woman with history of alcoholic cirrhosis, no alcohol in several months. She been having ongoing right upper quadrant pain related to known gallstones. She has an appointment for surgery on May 10 at the [facility]. Pain is worse after eating. She is nauseous but not vomiting. Bowel movements have been normal.) Review of Systems Constitutional: denies: Fever, Chills Cardiac: denies: Chest pain / pressure, Palpitations Respiratory: denies: Dyspnea, Cough GI: reports: Abdominal Pain, Nausea. 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 : None HEENT: Other Psych: Depression Musculoskeletal: Gout Derm: Other - Past Surgical History Past Surgical History: Yes General: Splenectomy Ortho: Hip replacement, Rotator cuff repair, Other - Present Medications Home Medications: Ambulatory Orders Medication Instructions Recorded Confirmed Atorvastatin Calcium 20 mg PO DAILY #30 tablet 06/07/18 10/15/18 Gabapentin [Neurontin] 100 mg PO TID #90 capsule 06/07/18 10/15/18 Lisinopril 10 mg PO DAILY #30 tablet 06/07/18 10/15/18 Omeprazole 20 mg PO DAILY 08/12/18 10/15/18 Insulin Aspart [NovoLOG] 1 - 5 unit SUBQ 02/16/19 0800,1200,1700,2100 #2 pen Insulin Glargine [Lantus Solostar] 10 unit SUBQ QPM #2 pen 02/16/19 Ondansetron Odt [Zofran] 4 mg TL Q6H PRN 04/09/19 04/09/19 Famotidine 20 mg PO DAILY #30 tablet 04/13/19 Naproxen 375 mg PO BID #20 tablet 04/13/19 Sucralfate [Carafate] 1 gm PO TID #20 tablet 04/13/19 oxyCODONE [Roxicodone] 5 mg PO TID PRN #25 tablet 04/13/19 oxyCODONE [Roxicodone] 5 mg PO Q4-6H PRN #20 tablet 04/20/19 - Allergies Allergies/Adverse Reactions: Allergies Allergy/AdvReac Type Severity Reaction Status Date / Time No Known Drug Allergies Allergy Verified 04/20/19 12:06 - Social History Does the pt smoke?: Yes Smoking Status: Current every day smoker Does the pt drink ETOH?: No Does the pt have substance abuse?: No - Immunizations Immunizations are current?: Yes Immunizations: TDAP >10years/unknown - POLST Patient has POLST: No POLST Status: Full Code PD ED PE NORMAL - Vitals Vital signs reviewed: Yes - General General: Alert and oriented X 3, No acute distress - Abdomen Abdomen: Normal bowel sounds, Soft, Other (Mild tenderness in the right upper quadrant without surgical signs, negative Ward sign.) - Back Back: No CVA TTP, No spinal TTP - Derm Derm: Normal color, Warm and dry - Extremities Extremities: No edema, No calf tenderness / cord - Neuro Neuro: Alert and oriented X 3, Normal speech Results - Vitals Vitals: Vital Signs - 24 hr 04/20/19 12:02 Temperature 36.4 C L Heart Rate 79 Respiratory 16 Rate Blood Pressure 120/70 O2 Saturation 98 Oxygen O2 Source Room air - Labs Labs: Laboratory Tests 04/20/19 04/20/19 04/20/19 12:03 12:03 12:29 WBC 6.0 RBC 3.31 L Hgb 10.0 L Hct 31.1 L MCV 94.0 MCH 30.2 MCHC 32.2 RDW 13.2 Plt Count 453 H MPV 10.4 Neut # (Auto) 3.3 Lymph # (Auto) 2.2 [place] # (Auto) 0.5 Eos # (Auto) 0.1 Baso # (Auto) 0.1 Absolute Nucleated RBC 0.00 Nucleated RBC % 0.0 VBG pH 7.351 VBG pCO2 49.8 VBG pO2 31.0 VBG HCO3 26.9 VBG Total CO2 28.5 VBG O2 Saturation 63.4 VBG Base Excess 0.9 Sodium 134 L Potassium 4.3 Chloride 100 L Carbon Dioxide 27 Anion Gap 7.0 BUN 15 Creatinine 0.7 Estimated GFR (MDRD) 88 L Glucose 342 H Calcium 8.7 Total Bilirubin 0.5 AST 77 H ALT 82 H Alkaline Phosphatase 400 H Total Protein 7.8 Albumin 3.5 Globulin 4.3 H Albumin/Globulin Ratio 0.8 L Lipase 24 Ethyl Alcohol < 5.0 Serum Ketones NEGATIVE PD MEDICAL DECISION MAKING - ED course ED course: This is a 53-year-old woman with known gallstones and pain related to same. She has an appointment for surgery, she is a high surgical risk because of comorbidities. All her labs are stable. She is treated with medications. Discussed with her that she should try to see her primary care physician for ongoing pain management until the surgery, and she would not receive any pain medications after the surgery date of May 10. Departure - Departure Disposition: Home, Self Care Clinical Impression: Chronic alcoholic pancreatitis, Tobacco dependence, Biliary colic Condition: Stable Record reviewed to determine appropriate education?: Yes Instructions: ED Gallstone W Biliary Colic Follow-Up: Mendez Morgan MD [Credentialed Staff Provider] - Prescriptions: oxyCODONE [Roxicodone] 5 mg PO Q4-6H PRN #20 tablet PRN Reason: Pain Comments: It would be best if your primary care physician managed your ongoing pain management needs until your surgery. I would recommend, as discussed, that your sister dispense the medications no more often than prescribed as you have a history of substance issues. We will not prescribe any medications after your surgery date after May 10.
== END 2019-04-20 13:24 | disposition home or self-care (01) ==
LOC: EDUNIT# → ED 11:56
DX: K80.20 Calculus of gallbladder without cholecystitis without obstruction (principal); K86.0 Alcohol-induced chronic pancreatitis; K70.30 Alcoholic cirrhosis of liver without ascites; I10 Essential (primary) hypertension; E11.9 Type 2 diabetes mellitus without complications; Z79.4 Long term (current) use of insulin; F17.200 Nicotine dependence, unspecified, uncomplicated
CPT/HCPCS: 36415; 80053; 80320; 82009; 82803; 83690; 85025; 96374; 99283; 99284; J1170

== ENCOUNTER 2019-04-21 16:26 | Outpatient (CLI) | payer MEDICAID | END 2019-04-21 16:27 | disposition critical access hospital (66) | LOC: EMS 16:26 | PROVIDERS: ATTEND Surgery | DX: R10.9 Unspecified abdominal pain (principal); R11.2 Nausea with vomiting, unspecified | CPT/HCPCS: A0425; A0427; A0999 ==

== ENCOUNTER 2019-04-21 16:54 | Emergency (ER) | payer MEDICAID ==
[2019-04-21] MEDS ORDERED: LOPERAMIDE 2 MG CAPSULE PO STA (16:59)
[2019-04-21] MEDS ORDERED: SODIUM CHLORIDE 0.9% 1,000 ML IV ONE (16:59)
[2019-04-21] MEDS ORDERED: METOCLOPRAMIDE 10 MG/2 ML VIAL IVP STA (16:59)
[2019-04-21] MEDS ORDERED: oxyCODONE 5 MG TABLET PO STA (16:59)
--- NOTE | 2019-04-21 17:01 | ED Physician Documentation ---
PD HPI ABD PAIN - Stated complaint Stated Complaint: ABD PX - Chief complaint Chief Complaint: Abd Pain - History obtained from History obtained from: Patient, EMS - History of Present Illness Timing - onset: Today (53yo F with hx of cirrhosis, known gallstones, high risk surgical candidate. She did not see a lot for abdominal pain lately related presumptively to gallstones. Has an appointment at the [facility]. Got some pain medication yesterday, pain is not worse today but she is been vomiting with diarrhea today which is new and different. She tried oral ondansetron at home which was not helpful. She has no blood in the vomitus or the diarrhea. 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 : None HEENT: Other Psych: Depression Musculoskeletal: Gout Derm: Other - Past Surgical History Past Surgical History: Yes General: Splenectomy Ortho: Hip replacement, Rotator cuff repair, Other - Present Medications Home Medications: Ambulatory Orders Medication Instructions Recorded Confirmed Atorvastatin Calcium 20 mg PO DAILY #30 tablet 06/07/18 10/15/18 Gabapentin [Neurontin] 100 mg PO TID #90 capsule 06/07/18 10/15/18 Lisinopril 10 mg PO DAILY #30 tablet 06/07/18 10/15/18 Omeprazole 20 mg PO DAILY 08/12/18 10/15/18 Insulin Aspart [NovoLOG] 1 - 5 unit SUBQ 02/16/19 0800,1200,1700,2100 #2 pen Insulin Glargine [Lantus Solostar] 10 unit SUBQ QPM #2 pen 02/16/19 Ondansetron Odt [Zofran] 4 mg TL Q6H PRN 04/09/19 04/09/19 Famotidine 20 mg PO DAILY #30 tablet 04/13/19 Naproxen 375 mg PO BID #20 tablet 04/13/19 Sucralfate [Carafate] 1 gm PO TID #20 tablet 04/13/19 oxyCODONE [Roxicodone] 5 mg PO TID PRN #25 tablet 04/13/19 oxyCODONE [Roxicodone] 5 mg PO Q4-6H PRN #20 tablet 04/20/19 Metoclopramide [Reglan] 10 mg PO Q6H PRN #20 tablet 04/21/19 - Allergies Allergies/Adverse Reactions: Allergies Allergy/AdvReac Type Severity Reaction Status Date / Time No Known Drug Allergies Allergy Verified 04/21/19 16:59 - Social History Does the pt smoke?: Yes Smoking Status: Current every day smoker Does the pt drink ETOH?: No Does the pt have substance abuse?: No - Immunizations Immunizations are current?: Yes Immunizations: TDAP >10years/unknown - POLST Patient has POLST: No POLST Status: Full Code PD ED PE NORMAL - Vitals Vital signs reviewed: Yes - General General: Alert and oriented X 3, No acute distress - Abdomen Abdomen: Normal bowel sounds, Soft, Non tender - Back Back: No CVA TTP, No spinal TTP - Derm Derm: Normal color, Warm and dry - Extremities Extremities: No edema, No calf tenderness / cord - Neuro Neuro: Alert and oriented X 3, Normal speech Results - Vitals Vitals: Vital Signs - 24 hr 04/21/19 16:57 Temperature 37.8 C H Heart Rate 82 Respiratory 12 Rate Blood Pressure 135/96 H O2 Saturation 97 Oxygen O2 Source Room air - Labs Labs: Laboratory Tests 04/21/19 04/21/19 17:23 17:23 WBC 5.2 RBC 3.07 L Hgb 9.4 L Hct 29.0 L MCV 94.5 MCH 30.6 MCHC 32.4 RDW 13.3 Plt Count 439 MPV 10.3 Neut # (Auto) 2.5 Lymph # (Auto) 2.2 [place] # (Auto) 0.4 Eos # (Auto) 0.1 Baso # (Auto) 0.1 Absolute Nucleated RBC 0.00 Nucleated RBC % 0.0 Sodium 133 L Potassium 4.0 Chloride 102 Carbon Dioxide 25 Anion Gap 6.0 BUN 16 Creatinine 0.8 Estimated GFR (MDRD) 76 L Glucose 352 H Calcium 8.3 L Total Bilirubin 0.5 AST 55 H ALT 67 H Alkaline Phosphatase 336 H Total Protein 7.3 Albumin 3.1 L Globulin 4.2 Albumin/Globulin Ratio 0.7 L Lipase 21 L PD MEDICAL DECISION MAKING - ED course ED course: 53-year-old woman with known gallstones and cirrhosis presents now for more vomiting and diarrhea than pain. She was given IV fluids and antiemetics and Imodium with good relief. Departure - Departure Disposition: 01 Home, Self Care Clinical Impression: Abdominal pain Condition: Good Record reviewed to determine appropriate education?: Yes Prescriptions: Metoclopramide [Reglan] 10 mg PO Q6H PRN #20 tablet PRN Reason: nausea or headache Comments: Continue the current plan of care, I have given you something else for nausea.
[2019-04-21 17:27] LABS: BASOPHILS # (AUTO) 0.1 10^3/uL (0.0-0.1); EOSINOPHILS # (AUTO) 0.1 10^3/uL (0.0-0.7); EOSINOPHILS % (AUTO) 2.1 %; HGB - HEMOGLOBIN 9.4 g/dL (12.0-16.0); LYMPHOCYTES # (AUTO) 2.2 10^3/uL (1.5-3.5); LYMPHOCYTES % (AUTO) 41.8 %; MEAN CORPUSCULAR HEMOGLOBIN 30.6 pg (27.0-31.0); MEAN CORPUSCULAR HGB CONC 32.4 g/dL (32.0-36.0); MEAN CORPUSCULAR VOLUME 94.5 fL (81.0-99.0); MEAN PLATELET VOLUME 10.3 fL (7.9-10.8); MONOCYTES # (AUTO) 0.4 10^3/uL (0.0-1.0); NEUTROPHILS # (AUTO) 2.5 10^3/uL (1.5-6.6); NEUTROPHILS % (AUTO) 47.9 %; PLT - PLATELET COUNT 439 10^3/uL (130-450); RED BLOOD COUNT 3.07 10^6/uL (4.20-5.40); RED CELL DISTRIBUTION WIDTH 13.3 % (12.0-15.0); WHITE BLOOD COUNT 5.2 x10^3/uL (4.8-10.8)
[2019-04-21 17:50] LABS: ALBUMIN 3.1 g/dL (3.2-5.5); ALBUMIN/GLOBULIN RATIO 0.7 (1.0-2.2); BILIRUBIN,TOTAL 0.5 mg/dL (0.2-1.0); CALCIUM 8.3 mg/dL (8.5-10.3); CREATININE 0.8 mg/dL (0.4-1.0); TOTAL PROTEIN 7.3 g/dL (6.7-8.2)
[2019-04-21 18:01] VITALS: BP 121/72
== END 2019-04-21 18:05 | disposition home or self-care (01) ==
LOC: EDUNIT# → ED 16:54
DX: R11.2 Nausea with vomiting, unspecified (principal); R19.7 Diarrhea, unspecified; R10.9 Unspecified abdominal pain; K80.20 Calculus of gallbladder without cholecystitis without obstruction; K74.60 Unspecified cirrhosis of liver; I10 Essential (primary) hypertension; E11.9 Type 2 diabetes mellitus without complications; Z79.4 Long term (current) use of insulin; F17.200 Nicotine dependence, unspecified, uncomplicated
CPT/HCPCS: 36415; 80053; 83690; 85025; 99283; 99284; A9270; J2765

== ENCOUNTER 2019-04-24 19:21 | Outpatient (CLI) | payer MEDICAID | END 2019-04-24 19:22 | disposition critical access hospital (66) | LOC: EMS 19:21 | PROVIDERS: ATTEND Surgery | DX: R10.9 Unspecified abdominal pain (principal); R11.0 Nausea; R73.09 Other abnormal glucose | CPT/HCPCS: A0425; A0427; A0999 ==

== ENCOUNTER 2019-04-24 19:50 | Emergency (ER) | payer MEDICAID ==
[2019-04-24] MEDS ORDERED: INSULIN REGULAR HUMAN 100 UNIT/1 ML 10 ML MDV SUBQ STA (20:02)
--- NOTE | 2019-04-24 20:03 | ED Physician Documentation ---
PD HPI ABD PAIN - Stated complaint Stated Complaint: ABD PAIN - Chief complaint Chief Complaint: Abd Pain - History obtained from History obtained from: Patient - History of Present Illness Timing - onset: Today Timing - duration: Hours (2) Timing - details: Abrupt onset Quality: Sharp, Stabbing Location: RUQ Radiation: Chest Improved by: Meds Associated symptoms: Fever, Nausea, Vomiting (2 days ago) Similar symptoms before: Diagnosis Recently seen: Emergency Dept - Additional information Additional information: This is a 53-year-old woman who presents with complaints that she knows that she has gallstones and one in the pancreas as of December 2018 she is scheduled for surgery at [facility] on May 10. She was had pain medications at home that she got from the emergency department last week and was doing well and then she ran out of them tonight at 6 PM the pain came back severely in the right upper quadrant and shooting up through the chest to the right shoulder. She says she was just sitting around when it happened. She received fentanyl in route and her pain is now down to a 7-8 out of 10. It. narcotic prescriptions from her doctor because they do not believe in them she is nauseous and said she was vomiting 2 days ago. She reports a fever in the ambulance of 99.6. She is a diabetic her blood sugar was 40 when she got up this morning she rechecked it around noon it was 157 and she took her insulin she has not checked it again since then. She does feel short of breath because the pain is so severe. She uses inhalers but is not sure what her underlying diagnosis is. She is a smoker. She quit drinking 3 years ago. 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 : None HEENT: Other Psych: Depression Musculoskeletal: Gout Derm: Other - Past Surgical History Past Surgical History: Yes General: Splenectomy Ortho: Hip replacement, Rotator cuff repair, Other - Present Medications Home Medications: Ambulatory Orders Medication Instructions Recorded Confirmed Atorvastatin Calcium 20 mg PO DAILY #30 tablet 06/07/18 10/15/18 Gabapentin [Neurontin] 100 mg PO TID #90 capsule 06/07/18 10/15/18 Lisinopril 10 mg PO DAILY #30 tablet 06/07/18 10/15/18 Omeprazole 20 mg PO DAILY 08/12/18 10/15/18 Insulin Aspart [NovoLOG] 1 - 5 unit SUBQ 02/16/19 0800,1200,1700,2100 #2 pen Insulin Glargine [Lantus Solostar] 10 unit SUBQ QPM #2 pen 02/16/19 Ondansetron Odt [Zofran] 4 mg TL Q6H PRN 04/09/19 04/09/19 Famotidine 20 mg PO DAILY #30 tablet 04/13/19 Naproxen 375 mg PO BID #20 tablet 04/13/19 Sucralfate [Carafate] 1 gm PO TID #20 tablet 04/13/19 oxyCODONE [Roxicodone] 5 mg PO TID PRN #25 tablet 04/13/19 oxyCODONE [Roxicodone] 5 mg PO Q4-6H PRN #20 tablet 04/20/19 Metoclopramide [Reglan] 10 mg PO Q6H PRN #20 tablet 04/21/19 - Allergies Allergies/Adverse Reactions: Allergies Allergy/AdvReac Type Severity Reaction Status Date / Time No Known Drug Allergies Allergy Verified 04/24/19 19:58 - Social History Does the pt smoke?: Yes Smoking Status: Current every day smoker Does the pt drink ETOH?: No Does the pt have substance abuse?: No - Immunizations Immunizations are current?: Yes Immunizations: TDAP >10years/unknown - POLST Patient has POLST: No POLST Status: Full Code PD ED PE NORMAL - Vitals Vital signs reviewed: Yes - General General: Alert and oriented X 3, No acute distress, Well developed/nourished, Other (Thin cachectic appearing 53-year-old) - HEENT HEENT: Atraumatic, PERRL, Other (Dry mucous membranes) - Neck Neck: No adenopathy - Cardiac Cardiac: RRR, No murmur - Respiratory Respiratory: No respiratory distress, Clear bilaterally - Abdomen Abdomen: Normal bowel sounds, Other (Pain in the right upper quadrant and epigastric area. She has a scar in the left upper quadrant status post splenectomy) - Derm Derm: Normal color, No rash - Extremities Extremities: No deformity, No edema - Neuro Neuro: Alert and oriented X 3, No motor deficit, No sensory deficit, Normal speech - Psych Psych: Normal mood, Normal affect Results - Vitals Vitals: Vital Signs - 24 hr 04/24/19 04/24/19 19:55 19:59 Temperature 37.3 C 37.3 C Heart Rate 88 89 Respiratory 16 16 Rate Blood Pressure 123/74 123/74 O2 Saturation 98 99 Oxygen O2 Source Room air - Labs Labs: Laboratory Tests 04/24/19 04/24/19 04/24/19 19:59 19:59 20:25 WBC 4.9 RBC 3.11 L Hgb 9.2 L Hct 29.3 L MCV 94.2 MCH 29.6 MCHC 31.4 L RDW 13.6 Plt Count 384 MPV 10.5 Neut # (Auto) 1.9 Lymph # (Auto) 2.5 [place] # (Auto) 0.4 Eos # (Auto) 0.1 Baso # (Auto) 0.1 Absolute Nucleated RBC 0.00 Nucleated RBC % 0.0 VBG pH 7.411 H VBG pCO2 36.9 L VBG pO2 148.0 H VBG HCO3 22.9 L VBG Total CO2 24.1 VBG O2 Saturation 98.1 H VBG Base Excess -1.4 Sodium 129 L Potassium 4.8 Chloride 97 L Carbon Dioxide 24 Anion Gap 8.0 BUN 13 Creatinine 1.0 Estimated GFR (MDRD) 58 L Glucose 699 H* Calcium 8.5 Total Bilirubin 0.7 AST 46 H ALT 57 Alkaline Phosphatase 329 H Total Protein 7.8 Albumin 3.6 Globulin 4.2 Albumin/Globulin Ratio 0.9 L Lipase 22 Serum Ketones SMALL H PD MEDICAL DECISION MAKING - ED course Complexity details: reviewed old records, reviewed results, d/w patient ED course: Patient's lipase is normal. Her liver enzymes are not elevated. She does not have an elevated white blood cell count. After a milligram of Dilaudid here in the emergency department she stated that her pain was gone and she was ready to be discharged. I was upfront with her on my initial evaluation that I would not provide a narcotic prescription upon discharge. Departure - Departure Disposition: 01 Home, Self Care Clinical Impression: Abdominal pain Qualifiers: Abdominal location: right upper quadrant Qualified Code(s): R10.11 - Right upper quadrant pain Condition: Good Instructions: ED Gallstone W Biliary Colic Follow-Up: DANYA OLIVEROS [Primary Care Provider] - your,surgeon [Other] Comments: You should follow through with the surgery that scheduled on May 10 to remove the gallstone from the pancreas in the gallbladder. We will not provide further narcotic prescriptions from the emergency department.
[2019-04-24 20:15] LABS: BASOPHILS # (AUTO) 0.1 10^3/uL (0.0-0.1); EOSINOPHILS # (AUTO) 0.1 10^3/uL (0.0-0.7); EOSINOPHILS % (AUTO) 1.2 %; HGB - HEMOGLOBIN 9.2 g/dL (12.0-16.0); LYMPHOCYTES # (AUTO) 2.5 10^3/uL (1.5-3.5); LYMPHOCYTES % (AUTO) 50.3 %; MEAN CORPUSCULAR HEMOGLOBIN 29.6 pg (27.0-31.0); MEAN CORPUSCULAR HGB CONC 31.4 g/dL (32.0-36.0); MEAN CORPUSCULAR VOLUME 94.2 fL (81.0-99.0); MEAN PLATELET VOLUME 10.5 fL (7.9-10.8); MONOCYTES # (AUTO) 0.4 10^3/uL (0.0-1.0); MONOCYTES % (AUTO) 8.4 %; NEUTROPHILS # (AUTO) 1.9 10^3/uL (1.5-6.6); NEUTROPHILS % (AUTO) 39.1 %; PLT - PLATELET COUNT 384 10^3/uL (130-450); RED BLOOD COUNT 3.11 10^6/uL (4.20-5.40); RED CELL DISTRIBUTION WIDTH 13.6 % (12.0-15.0); WHITE BLOOD COUNT 4.9 x10^3/uL (4.8-10.8)
[2019-04-24] MEDS ORDERED: HYDROmorphone 1 MG/ML CARPUJECT IVP STA (20:19)
[2019-04-24 20:30] LABS: ALBUMIN 3.6 g/dL (3.2-5.5); ALBUMIN/GLOBULIN RATIO 0.9 (1.0-2.2); ALKALINE PHOSPHATASE 329 IU/L (42-121); ALT ALANINE AMINOTRANSFERASE 57 IU/L (10-60); AST ASPARTATE AMINOTRANSFERASE 46 IU/L (10-42); BILIRUBIN,TOTAL 0.7 mg/dL (0.2-1.0); BUN - BLOOD UREA NITROGEN 13 mg/dL (6-20); CALCIUM 8.5 mg/dL (8.5-10.3); CARBON DIOXIDE - CO2 24 mmol/L (21-32); CHLORIDE 97 mmol/L (101-111); GFR - MDRD 58 (>89); LIPASE 22 U/L (22-51); SODIUM 129 mmol/L (135-145); TOTAL PROTEIN 7.8 g/dL (6.7-8.2)
[2019-04-24 20:32] LABS: GLUCOSE 699 mg/dL (70-100)
[2019-04-24 20:39] LABS: KETONES, SERUM (ACETEST) SMALL (NEGATIVE)
[2019-04-24 20:40] LABS: VBG PCO2 36.9 mmHg (41-51); VBG PH 7.411 (7.31-7.41)
[2019-04-24 20:41] LABS: VBG BASE EXCESS -1.4 mmol/L (-2 - +2); VBG TOTAL CO2 24.1 mmol/L (24-29)
[2019-04-24 21:40] VITALS: BP 125/72
== END 2019-04-24 21:42 | disposition home or self-care (01) ==
LOC: EDUNIT# → ED 19:50
DX: R10.11 Right upper quadrant pain (principal); R10.13 Epigastric pain; K80.20 Calculus of gallbladder without cholecystitis without obstruction; K86.89 Other specified diseases of pancreas; Z87.19 Personal history of other diseases of the digestive system; I10 Essential (primary) hypertension; E11.9 Type 2 diabetes mellitus without complications; Z79.4 Long term (current) use of insulin; F17.200 Nicotine dependence, unspecified, uncomplicated
CPT/HCPCS: 36415; 80053; 82009; 82803; 83690; 85025; 96374; 99283; 99284; J1170; J1815

== ENCOUNTER 2019-04-25 12:05 | Outpatient (CLI) | payer MEDICAID | END 2019-04-25 12:06 | disposition critical access hospital (66) | LOC: EMS 12:05 | PROVIDERS: ATTEND Surgery | DX: R10.11 Right upper quadrant pain (principal); R11.0 Nausea | CPT/HCPCS: A0425; A0427 ==

== ENCOUNTER 2019-04-25 12:31 | Emergency (ER) | payer MEDICAID ==
--- NOTE | 2019-04-25 13:16 | ED Physician Documentation ---
PD HPI ABD PAIN - Stated complaint Stated Complaint: ABD PX - Chief complaint Chief Complaint: Abd Pain - History obtained from History obtained from: Patient - History of Present Illness Timing - onset: Today Timing - duration: Hours (1.5) Timing - details: Abrupt onset Pain level now: >10 Quality: Sharp, Stabbing Location: RUQ Radiation: Right flank Associated symptoms: Nausea. No: Fever, Vomiting Similar symptoms before: Diagnosis Recently seen: Emergency Dept - Additional information Additional information: Is a 53-year-old who I just saw yesterday in the emerge department with complaints of abdominal pain related to her gallstones. She has multiple visits to the emergency department For the same diagnosis and complaint and is scheduled for surgery on May 10 to remove her gallbladder and the "stone that is in the pancreas". This morning she ate eggs [place] and then was helping her sister when the pain started. She is been nauseous but no vomiting. She denies receiving any pain medications in route in the ambulance. She denies allergies. She has not had a fever. This is the same pain that she felt yesterday in her right upper quadrant that is shooting and stabbing through into her back. Review of Systems Constitutional: denies: Fever GI: reports: Abdominal Pain, Nausea. 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 : None HEENT: Other Psych: Depression Musculoskeletal: Gout Derm: Other - Past Surgical History Past Surgical History: Yes General: Splenectomy Ortho: Hip replacement, Rotator cuff repair, Other - Present Medications Home Medications: Ambulatory Orders Medication Instructions Recorded Confirmed Atorvastatin Calcium 20 mg PO DAILY #30 tablet 06/07/18 10/15/18 Gabapentin [Neurontin] 100 mg PO TID #90 capsule 06/07/18 10/15/18 Lisinopril 10 mg PO DAILY #30 tablet 06/07/18 10/15/18 Omeprazole 20 mg PO DAILY 08/12/18 10/15/18 Insulin Aspart [NovoLOG] 1 - 5 unit SUBQ 02/16/19 0800,1200,1700,2100 #2 pen Insulin Glargine [Lantus Solostar] 10 unit SUBQ QPM #2 pen 08/20/19 Ondansetron Odt [Zofran] 4 mg TL Q6H PRN 04/09/19 04/09/19 Famotidine 20 mg PO DAILY #30 tablet 04/13/19 Naproxen 375 mg PO BID #20 tablet 04/13/19 Sucralfate [Carafate] 1 gm PO TID #20 tablet 04/13/19 oxyCODONE [Roxicodone] 5 mg PO TID PRN #25 tablet 04/13/19 oxyCODONE [Roxicodone] 5 mg PO Q4-6H PRN #20 tablet 04/20/19 Metoclopramide [Reglan] 10 mg PO Q6H PRN #20 tablet 04/21/19 - Allergies Allergies/Adverse Reactions: Allergies Allergy/AdvReac Type Severity Reaction Status Date / Time No Known Drug Allergies Allergy Verified 04/25/19 12:34 - Social History Does the pt smoke?: Yes Smoking Status: Current every day smoker Does the pt drink ETOH?: No Does the pt have substance abuse?: Yes Substance Use and Type: Marijuana - Immunizations Immunizations are current?: Yes Immunizations: TDAP >10years/unknown - POLST Patient has POLST: No POLST Status: Full Code PD ED PE NORMAL - Vitals Vital signs reviewed: Yes - General General: Other (She is laying on the exam gurney occasionally crying and clutc daphne at the right upper quadrant.) - HEENT HEENT: Atraumatic, PERRL, Other (Mucous membranes are dry. There is no scleral icterus.) - Cardiac Cardiac: RRR, No murmur - Respiratory Respiratory: No respiratory distress, Clear bilaterally, Other (She has a wet sounding cough.) - Abdomen Abdomen: Other (Hypoactive bowel tones. Tender in the right upper quadrant.) - Derm Derm: Normal color, Warm and dry, No rash - Neuro Neuro: Alert and oriented X 3, No motor deficit, No sensory deficit, Normal speech Results - Vitals Vitals: Vital Signs - 24 hr 04/25/19 04/25/19 12:34 14:37 Temperature 37.0 C Heart Rate 88 72 Respiratory 18 18 Rate Blood Pressure 147/98 H 123/82 H O2 Saturation 100 100 Oxygen O2 Source Room air - Labs Labs: Laboratory Tests 04/25/19 13:36 Sodium 132 L Potassium 4.4 Chloride 98 L Carbon Dioxide 26 Anion Gap 8.0 BUN 16 Creatinine 0.9 Estimated GFR (MDRD) 66 L Glucose 332 H Calcium 8.7 Total Bilirubin 0.8 AST 44 H ALT 54 Alkaline Phosphatase 314 H Total Protein 7.8 Albumin 3.5 Globulin 4.3 H Albumin/Globulin Ratio 0.8 L Lipase 25 PD MEDICAL DECISION MAKING - ED course Complexity details: reviewed results, d/w patient ED course: I discussed with the patient on my initial interaction that I would not give her narcotics here in the emergency department and we had already discussed yesterday that I would not give her a prescription for narcotics at discharge. She was given Toradol 30 mg IV and her labs were obtained to make sure that she had not developed pancreatitis. Her lipase is normal and there is no significant elevation of her liver enzymes compared to yesterday. Her blood sugar was 300. She is given subcu insulin 5 units. She was given Toradol 30 mg IV for her pain and nursing staff stopped me and said that she was crying and said if that we were going to do anything for her pain she would just be discharged and go home and cry. She is been ordered for Haldol 3 mg and Benadryl 25 mg IV. 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 She was requesting to be discharged. Departure - Departure Disposition: Home, Self Care Clinical Impression: Abdominal pain Qualifiers: Abdominal location: right upper quadrant Qualified Code(s): R10.11 - Right upper quadrant pain Condition: Good Instructions: ED Gallstone W Biliary Colic Follow-Up: DANYA OLIVEROS [Primary Care Provider] - your,surgeon [Other] Comments: Follow-up with your primary care provider for further pain management and the surgeon for the scheduled surgery on May 10. Try to avoid eating things that set off your pain.
[2019-04-25] MEDS ORDERED: KETOROLAC 30 MG/ML VIAL IVP STA (13:26)
[2019-04-25 13:55] LABS: ALBUMIN 3.5 g/dL (3.2-5.5); ALBUMIN/GLOBULIN RATIO 0.8 (1.0-2.2); BILIRUBIN,TOTAL 0.8 mg/dL (0.2-1.0); CALCIUM 8.7 mg/dL (8.5-10.3); CREATININE 0.9 mg/dL (0.4-1.0); TOTAL PROTEIN 7.8 g/dL (6.7-8.2)
[2019-04-25] MEDS ORDERED: HALOPERIDOL 5 MG/ML VIAL IVP ONE (14:10)
[2019-04-25] MEDS ORDERED: diphenhydrAMINE INJ 50 MG/ML VIAL IVP STA (14:11)
[2019-04-25] MEDS ORDERED: INSULIN REGULAR HUMAN 100 UNIT/1 ML 10 ML MDV SUBQ STA (14:11)
[2019-04-25 14:54] VITALS: BP 123/82
== END 2019-04-25 15:33 | disposition home or self-care (01) ==
LOC: EDUNIT# → ED 12:31
DX: R10.11 Right upper quadrant pain (principal); R05 Cough; E11.65 Type 2 diabetes mellitus with hyperglycemia; Z79.4 Long term (current) use of insulin; I10 Essential (primary) hypertension; F17.200 Nicotine dependence, unspecified, uncomplicated; Z87.19 Personal history of other diseases of the digestive system
CPT/HCPCS: 36415; 80053; 83690; 96374; 96375; 99284; J1200; J1815

== ENCOUNTER 2019-04-26 14:54 | Outpatient (CLI) | payer MEDICAID | END 2019-04-26 14:55 | disposition short-term general hospital (02) | LOC: EMS 14:54 | PROVIDERS: ATTEND Surgery | DX: R10.9 Unspecified abdominal pain (principal); R11.2 Nausea with vomiting, unspecified | CPT/HCPCS: A0425; A0429; A0999 ==

== ENCOUNTER 2019-05-02 12:43 | Outpatient (CLI) | payer MEDICAID | END 2019-05-02 12:44 | disposition short-term general hospital (02) | LOC: EMS 12:43 | PROVIDERS: ATTEND Surgery | DX: R10.9 Unspecified abdominal pain (principal) ==

== ENCOUNTER 2019-05-10 18:56 | Outpatient (CLI) | payer MEDICAID | END 2019-05-10 18:57 | disposition critical access hospital (66) | LOC: EMS 18:56 | PROVIDERS: ATTEND Surgery | DX: R10.31 Right lower quadrant pain (principal); R11.0 Nausea; R73.09 Other abnormal glucose | CPT/HCPCS: A0425; A0427; A0999 ==

== ENCOUNTER 2019-05-10 19:20 | Emergency (ER) | payer MEDICAID ==
[2019-05-10] MEDS ORDERED: SODIUM CHLORIDE 0.9% 1,000 ML IV ONE ×2 (20:34→23:03)
[2019-05-10] MEDS ORDERED: ONDANSETRON 4 MG/2 ML VIAL IVP STA (20:34)
[2019-05-10] MEDS ORDERED: KETOROLAC 30 MG/ML VIAL IVP STA (20:34)
[2019-05-10 20:50] LABS: BASOPHILS % (AUTO) 0.3 %; HGB - HEMOGLOBIN 9.9 g/dL (12.0-16.0); LYMPHOCYTES # (AUTO) 1.7 10^3/uL (1.5-3.5); LYMPHOCYTES % (AUTO) 23.9 %; MEAN CORPUSCULAR HEMOGLOBIN 29.5 pg (27.0-31.0); MEAN CORPUSCULAR HGB CONC 33.3 g/dL (32.0-36.0); MEAN CORPUSCULAR VOLUME 88.4 fL (81.0-99.0); MEAN PLATELET VOLUME 11.2 fL (7.9-10.8); MONOCYTES # (AUTO) 0.6 10^3/uL (0.0-1.0); MONOCYTES % (AUTO) 8.3 %; NEUTROPHILS # (AUTO) 4.7 10^3/uL (1.5-6.6); NEUTROPHILS % (AUTO) 67.1 %; PLT - PLATELET COUNT 401 10^3/uL (130-450); RED BLOOD COUNT 3.36 10^6/uL (4.20-5.40); RED CELL DISTRIBUTION WIDTH 13.6 % (12.0-15.0)
--- NOTE | 2019-05-10 20:50 | ED Physician Documentation ---
PD HPI ABD PAIN - Stated complaint Stated Complaint: ABD PAIN - Chief complaint Chief Complaint: Abd Pain - History obtained from History obtained from: Patient - History of Present Illness Timing - onset: Today Timing - duration: Hours Timing - details: Abrupt onset, Still present Quality: Sharp, Pain Location: RUQ Radiation: Right flank Improved by: Laying still Worsened by: Moving, Breathing, Position, Palpation Associated symptoms: Nausea, Vomiting Similar symptoms before: Diagnosis (gallstone) Recently seen: Emergency Dept Review of Systems Constitutional: reports: Myalgias, Fatigue, Sweats. denies: Fever Eyes: denies: Decreased vision Ears: denies: Ear pain Nose: reports: Rhinorrhea / runny nose, Congestion Throat: reports: Sore throat Cardiac: reports: Chest pain / pressure. denies: Palpitations, Pedal edema, Calf pain Respiratory: reports: Dyspnea, Cough GI: reports: Abdominal Pain, Nausea, Vomiting : reports: Dysuria, Frequency Skin: denies: Rash, Lesions Neurologic: reports: Generalized weakness. 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 HEENT: Other Psych: Depression Musculoskeletal: Gout Derm: Other - Past Surgical History Past Surgical History: Yes General: Splenectomy Ortho: Hip replacement, Rotator cuff repair, Other - Present Medications Home Medications: Ambulatory Orders Medication Instructions Recorded Confirmed Atorvastatin Calcium 20 mg PO DAILY #30 tablet 06/07/18 10/15/18 Gabapentin [Neurontin] 100 mg PO TID #90 capsule 06/07/18 10/15/18 Lisinopril 10 mg PO DAILY #30 tablet 06/07/18 10/15/18 Omeprazole 20 mg PO DAILY 08/12/18 10/15/18 Insulin Aspart [NovoLOG] 1 - 5 unit SUBQ 02/16/19 0800,1200,1700,2100 #2 pen Insulin Glargine [Lantus Solostar] 10 unit SUBQ QPM #2 pen 02/16/19 Ondansetron Odt [Zofran] 4 mg TL Q6H PRN 04/09/19 04/09/19 Famotidine 20 mg PO DAILY #30 tablet 04/13/19 Naproxen 375 mg PO BID #20 tablet 04/13/19 Sucralfate [Carafate] 1 gm PO TID #20 tablet 04/13/19 oxyCODONE [Roxicodone] 5 mg PO TID PRN #25 tablet 04/13/19 oxyCODONE [Roxicodone] 5 mg PO Q4-6H PRN #20 tablet 04/20/19 Metoclopramide [Reglan] 10 mg PO Q6H PRN #20 tablet 04/21/19 Amox/Clav 875/125 [Augmentin] 1 each PO Q12H #20 tablet 05/11/19 oxyCODONE [Roxicodone] 5 mg PO Q4HR PRN #20 tablet 05/11/19 - Allergies Allergies/Adverse Reactions: Allergies Allergy/AdvReac Type Severity Reaction Status Date / Time No Known Drug Allergies Allergy Verified 05/10/19 19:28 - Social History Does the pt smoke?: Yes Smoking Status: Current every day smoker Does the pt drink ETOH?: No Does the pt have substance abuse?: Yes - Immunizations Immunizations are current?: Yes Immunizations: TDAP >10years/unknown - POLST Patient has POLST: No POLST Status: Full Code PD ED PE NORMAL - Vitals Vital signs reviewed: Yes (hypertensive) - General General: Other (53 y/o thin frail female appearing much older than stated age is crying in pain has markedly dry mucous membranes) - HEENT HEENT: Atraumatic, PERRL, EOMI, Ears normal, Other (dry mucous membranes) - Neck Neck: Supple, no meningeal sign, No bony TTP - Cardiac Cardiac: RRR, No murmur - Respiratory Respiratory: No respiratory distress, Other (rhonchi bilat transmitted upper airway sounds. ) - Abdomen Abdomen: Other (The abdomen is soft and generally tender more on the right upper and over the right kidney to bimanual palpation. ) - Back Back: No spinal TTP, Other (R CVA tenderness ) - Derm Derm: Normal color, Warm and dry, No rash - Extremities Extremities: No deformity, No edema, No calf tenderness / cord - Neuro Neuro: Alert and oriented X 3, foxing painter 2-12 intact, No motor deficit, No sensory deficit, Normal speech Eye Opening: Spontaneous Motor: Obeys Commands Verbal: Oriented GCS Score: 15 - Psych Psych: Other (mood is defeated and the affect is sad) Results - Vitals Vitals: Vital Signs - 24 hr 05/10/19 05/10/19 05/11/19 19:24 21:43 01:00 Temperature 36.9 C Heart Rate 85 76 71 Respiratory 16 16 16 Rate Blood Pressure 150/94 H 161/85 H 147/81 H O2 Saturation 95 92 91 L 05/11/19 05/11/19 03:00 04:27 Temperature Heart Rate 86 82 Respiratory 16 16 Rate Blood Pressure 168/86 H 158/96 H O2 Saturation 98 96 Oxygen O2 Source Room air - Labs Labs: Laboratory Tests 05/10/19 05/10/19 05/10/19 19:55 20:42 20:42 WBC 7.0 RBC 3.36 L Hgb 9.9 L Hct 29.7 L MCV 88.4 MCH 29.5 MCHC 33.3 RDW 13.6 Plt Count 401 MPV 11.2 H Neut # (Auto) 4.7 Lymph # (Auto) 1.7 [place] # (Auto) 0.6 Eos # (Auto) 0.0 Baso # (Auto) 0.0 Absolute Nucleated RBC 0.00 Nucleated RBC % 0.0 PT 11.3 INR 1.0 VBG pH VBG pCO2 VBG pO2 VBG HCO3 VBG Total CO2 VBG O2 Saturation VBG Base Excess Sodium Potassium Chloride Carbon Dioxide Anion Gap BUN Creatinine Estimated GFR (MDRD) Glucose Lactic Acid Calcium Total Bilirubin AST ALT Alkaline Phosphatase Total Protein Albumin Globulin Albumin/Globulin Ratio Lipase Urine Color YELLOW Urine Clarity CLEAR Urine pH 5.5 Ur Specific [place] <=1.005 Urine Protein NEGATIVE Urine Glucose (UA) >=1000 H Urine Ketones NEGATIVE Urine Occult Blood NEGATIVE Urine Nitrite NEGATIVE Urine Bilirubin NEGATIVE Urine Urobilinogen 0.2 (NORMAL) Ur Leukocyte Esterase NEGATIVE Ur Microscopic Review NOT INDICATED Urine Culture Comments NOT INDICATED Ethyl Alcohol Serum Ketones 05/10/19 05/10/19 05/10/19 20:42 20:42 20:42 WBC RBC Hgb Hct MCV MCH MCHC RDW Plt Count MPV Neut # (Auto) Lymph # (Auto) [place] # (Auto) Eos # (Auto) Baso # (Auto) Absolute Nucleated RBC Nucleated RBC % PT INR VBG pH VBG pCO2 VBG pO2 VBG HCO3 VBG Total CO2 VBG O2 Saturation VBG Base Excess Sodium 124 L Potassium 4.6 Chloride 88 L Carbon Dioxide 25 Anion Gap 11.0 BUN 28 H Creatinine 1.2 H Estimated GFR (MDRD) 47 L Glucose 740 H* Lactic Acid 1.2 Calcium 8.6 Total Bilirubin 0.8 AST 109 H ALT 50 Alkaline Phosphatase 643 H Total Protein 7.9 Albumin 3.2 Globulin 4.7 H Albumin/Globulin Ratio 0.7 L Lipase 26 Urine Color Urine Clarity Urine pH Ur Specific [place] Urine Protein Urine Glucose (UA) Urine Ketones Urine Occult Blood Urine Nitrite Urine Bilirubin Urine Urobilinogen Ur Leukocyte Esterase Ur Microscopic Review Urine Culture Comments Ethyl Alcohol < 5.0 Serum Ketones NEGATIVE 05/10/19 05/11/19 21:20 04:02 WBC RBC Hgb Hct MCV MCH MCHC RDW Plt Count MPV Neut # (Auto) Lymph # (Auto) [place] # (Auto) Eos # (Auto) Baso # (Auto) Absolute Nucleated RBC Nucleated RBC % PT INR VBG pH 7.471 H VBG pCO2 35.5 L VBG pO2 69.9 H VBG HCO3 25.3 VBG Total CO2 26.4 VBG O2 Saturation 95.3 H VBG Base Excess 1.8 Sodium 131 L Potassium 4.0 Chloride 98 L Carbon Dioxide 24 Anion Gap 9.0 BUN 25 H Creatinine 1.0 Estimated GFR (MDRD) 58 L Glucose 192 H Lactic Acid Calcium 8.2 L Total Bilirubin AST ALT Alkaline Phosphatase Total Protein Albumin Globulin Albumin/Globulin Ratio Lipase Urine Color Urine Clarity Urine pH Ur Specific [place] Urine Protein Urine Glucose (UA) Urine Ketones Urine Occult Blood Urine Nitrite Urine Bilirubin Urine Urobilinogen Ur Leukocyte Esterase Ur Microscopic Review Urine Culture Comments Ethyl Alcohol Serum Ketones - Rads (name of study) chest 2 view Radiology: Prelim report reviewed (Impression: Posterior left lower lobe pneumonia.), EMP read indepedently, See rad report Procedures - Bedside sono Bedside sono by EMP: with the use of bedside ultrasound the right kidney is imaged and there is no evidence of hydronephrosis and the area is sonographically tender. - IVC sono (time) 2310 Bedside IVC sono: IVC measures (cm) (1.10), IVC collapsed c insp (cm) (complete), Dehydration (esat 1-2 liter deficit after one liter infused.) PD MEDICAL DECISION MAKING - ED course Complexity details: reviewed old records, reviewed results, re-evaluated patient, considered differential, d/w patient, d/w family ED course: 53-year-old female with complicated past medical history comes in tonight again complaining of abdominal pain after eating. She appears uncomfortable on arrival to the emerge department and she is complaining of some increased cough and feels like she has pneumonia. On examination she does have rhonchi in the left base and she appears markedly dehydrated. Her blood sugars over 700. She does not have ketoacidosis. She does have infiltrate on her chest x-ray. She is administered intravenous saline and is placed on an insulin drip at 6 units/h. She is dehydrated approximately 3 L total. After administration of 1 L of saline her inferior vena cava is interrogated and indicates a persistent deficit of 2 L. She is administered IV toradal with some improvement in her pain but ultimately requires a dose of dilaudid IV with some improvement. In review of her chart it appears she has chronic pain and exacerbation of pain and does better with pain medication at home. Her sister has been the keeper of her narcotic and we have prescribed her pain medication 2 times in the past month. Her diabetes is treated in the emergency department with saline and an insulin drip at 6 units/h. This requires approximately 8 hours of care in the emergency department with a reduction in her blood glucose to under 200 and an improvement in her electrolytes. The patient overall feels much improved at the conclusion of treatment. In addition to her sugar being elevated and marked dehydration the patient has her chronic abdominal pain and she has a cough that has recently developed and on x-ray examination and on physical examination she has infiltrate in the left base. She is administered Rocephin for this and we will put her on some augmentin as outpatient treatment as she has failed azithro previously. Departure - Departure Disposition: 01 Home, Self Care Clinical Impression: Abdominal pain, Dehydration Diabetes mellitus with hyperglycemia Qualifiers: Diabetes mellitus type: type 2 Diabetes mellitus mcfp insulin use: with terminal carman use Qualified Code(s): E11.65 - Type 2 diabetes mellitus with hyperglycemia Pneumonia Qualifiers: Pneumonia type: due to unspecified organism Laterality: left Lung location: lower lobe of lung Qualified Code(s): J18.9 - Pneumonia, unspecified organism Condition: Stable Instructions: Abdominal Pain, ED Hyperglycemia Diabetic, ED Dehydration, ED Pneumonia Adult Follow-Up: DANYA OLIVEROS [Primary Care Provider] - Prescriptions: oxyCODONE [Roxicodone] 5 mg PO Q4HR PRN #20 tablet PRN Reason: Pain Amox/Clav 875/125 [Augmentin] 1 each PO Q12H #20 tablet
[2019-05-10 20:55] LABS: BILIRUBIN,URINE NEGATIVE (NEGATIVE); GLUCOSE, URINE (UA) >=1000 mg/dL (NEGATIVE); KETONES,URINE (UA) NEGATIVE (NEGATIVE); LEUKOCYTE ESTERASE, URINE NEGATIVE (NEGATIVE); NITRITE,URINE NEGATIVE (NEGATIVE); OCCULT BLOOD,URINE NEGATIVE (NEGATIVE); PH,URINE 5.5 PH (5.0-7.5); PROTEIN,URINE NEGATIVE (NEGATIVE); UROBILINOGEN,URINE 0.2 (NORMAL) E.U./dL (NORMAL)
[2019-05-10 20:57] LABS: CLARITY,URINE CLEAR (CLEAR)
[2019-05-10 20:59] LABS: PT - PROTHROMBIN TIME 11.3 secs (9.9-12.6)
[2019-05-10] MEDS ORDERED: INSULIN REGULAR HUMAN 100 UNIT in SODIUM CHLORIDE 0.9% 100ML 99 ML IV STA (20:59)
[2019-05-10 21:02] LABS: ALBUMIN 3.2 g/dL (3.2-5.5); ALBUMIN/GLOBULIN RATIO 0.7 (1.0-2.2); BILIRUBIN,TOTAL 0.8 mg/dL (0.2-1.0); CALCIUM 8.6 mg/dL (8.5-10.3); CREATININE 1.2 mg/dL (0.4-1.0); TOTAL PROTEIN 7.9 g/dL (6.7-8.2)
[2019-05-10] MEDS ORDERED: SODIUM CHLORIDE 0.9% 100ML 100 ML IV ONE (21:16)
[2019-05-10 21:24] LABS: KETONES, SERUM (ACETEST) NEGATIVE (NEGATIVE)
[2019-05-10 21:26] LABS: VBG BASE EXCESS 1.8 mmol/L (-2 - +2); VBG PCO2 35.5 mmHg (41-51); VBG PH 7.471 (7.31-7.41); VBG PO2 69.9 mmHg (25-47); VBG TOTAL CO2 26.4 mmol/L (24-29)
[2019-05-10] MEDS ORDERED: HYDROmorphone 1 MG/ML CARPUJECT IVP STA (21:42)
--- NOTE | 2019-05-10 21:48 | XRAY Report ---
Reason: persistent cough Procedure Date: 05/10/2019 Accession Number: [id number] / [id number] Procedure: XR - Chest 2 View X-Ray CPT Code: 25402 Final Report FULL RESULT: EXAM: CHEST RADIOGRAPHY EXAM DATE: 05/10/2019 09:19 PM. CLINICAL HISTORY: Persistent cough. COMPARISON: CHEST 1 VIEW 10/15/2018 12:04 PM. TECHNIQUE: 2 views. FINDINGS: Lungs/Pleura: Hyperinflated lungs with posterior left base haziness, otherwise no focal opacities evident. No pleural effusion. No pneumothorax. Mediastinum: Heart and mediastinal contours are unremarkable. Other: No compression fractures. IMPRESSION: Posterior left lower lobe pneumonia. RADIA
[2019-05-11] MEDS ORDERED: cefTRIAXone 1 GM in SODIUM CHLORIDE 0.9% MINIBAG 100 ML IV STA (01:05)
[2019-05-11] MEDS ORDERED: SODIUM CHLORIDE 0.9% 1,000 ML IV ONE (03:01)
[2019-05-11] MEDS ORDERED: HYDROmorphone 1 MG/ML CARPUJECT IVP STA (03:21)
[2019-05-11] MEDS ORDERED: ONDANSETRON 4 MG/2 ML VIAL IVP STA (03:46)
[2019-05-11] MEDS ORDERED: ONDANSETRON 4 MG/2 ML VIAL ONE (03:58)
[2019-05-11 04:17] LABS: CALCIUM 8.2 mg/dL (8.5-10.3)
[2019-05-11 04:27] VITALS: BP 158/96
== END 2019-05-11 04:46 | disposition home or self-care (01) ==
LOC: EDUNIT# → ED 19:20
DX: R10.11 Right upper quadrant pain (principal); R11.2 Nausea with vomiting, unspecified; E86.0 Dehydration; E11.65 Type 2 diabetes mellitus with hyperglycemia; Z79.4 Long term (current) use of insulin; J18.9 Pneumonia, unspecified organism; I10 Essential (primary) hypertension; Z87.19 Personal history of other diseases of the digestive system; F17.200 Nicotine dependence, unspecified, uncomplicated
CPT/HCPCS: 36415; 71046; 80048; 80053; 80320; 81003; 82009; 82803; 83605; 83690; 85025; 85610; 87040; 96361; 96374; 96375; 96376; 99283; J1170; J1815; 80306; 81001; 87086

== ENCOUNTER 2019-05-17 11:53 | Outpatient (CLI) | payer MEDICAID ==
[2019-05-17 12:31] LABS: HB2 TOTAL 11.3 g/dL; HEMOGLOBIN A1C 1.61 g/dL; HEMOGLOBIN A1C % 15.2 % (4.6-6.2)
[2019-05-17 12:42] LABS: THYROID STIMULATING HORMONE 0.57 uIU/mL (0.34-5.60)
[2019-05-17 12:44] LABS: FREE T4 (FREE THYROXINE) 1.16 ng/dL (0.58-1.64)
== END 2019-05-17 11:54 | disposition home or self-care (01) ==
LOC: LAB 11:53
PROVIDERS: ATTEND Family Medicine
DX: G89.4 Chronic pain syndrome (principal); E11.40 Type 2 diabetes mellitus with diabetic neuropathy, unspecified; K21.9 Gastro-esophageal reflux disease without esophagitis; J44.9 Chronic obstructive pulmonary disease, unspecified; K74.60 Unspecified cirrhosis of liver; K86.1 Other chronic pancreatitis; K86.81 Exocrine pancreatic insufficiency; I10 Essential (primary) hypertension; M16.11 Unilateral primary osteoarthritis, right hip
CPT/HCPCS: 36415; 83036; 84439; 84443; 84481

== ENCOUNTER 2019-06-06 14:52 | Outpatient (CLI) | payer MEDICAID | END 2019-06-06 14:53 | disposition critical access hospital (66) | LOC: EMS 14:52 | PROVIDERS: ATTEND Surgery | DX: R10.13 Epigastric pain (principal) | CPT/HCPCS: A0425; A0427; A0999 ==

== ENCOUNTER 2019-06-06 15:23 | Emergency (ER) | payer MEDICAID ==
[2019-06-06 15:29] VITALS: BP 151/81
== END 2019-06-06 16:00 | disposition left against medical advice (07) ==
LOC: ED 15:23
DX: Z53.21 Procedure and treatment not carried out due to patient leaving prior to being seen by health care provider (principal)
CPT/HCPCS: 80053; 83690; 85025

== ENCOUNTER 2019-08-03 09:25 | Outpatient (CLI) | payer MEDICAID ==
[2019-08-03 17:32] LABS: BASOPHILS # (AUTO) 0.1 10^3/uL (0.0-0.1); BASOPHILS % (AUTO) 0.4 %; EOSINOPHILS % (AUTO) 0.1 %; HGB - HEMOGLOBIN 11.2 g/dL (12.0-16.0); LYMPHOCYTES % (AUTO) 12.5 %; MEAN CORPUSCULAR HEMOGLOBIN 25.2 pg (27.0-31.0); MEAN CORPUSCULAR HGB CONC 30.9 g/dL (32.0-36.0); MEAN CORPUSCULAR VOLUME 81.3 fL (81.0-99.0); MEAN PLATELET VOLUME 12.4 fL (7.9-10.8); MONOCYTES % (AUTO) 6.1 %; NEUTROPHILS # (AUTO) 12.7 10^3/uL (1.5-6.6); NEUTROPHILS % (AUTO) 80.3 %; PLT - PLATELET COUNT 605 10^3/uL (130-450); RED BLOOD COUNT 4.45 10^6/uL (4.20-5.40); RED CELL DISTRIBUTION WIDTH 17.3 % (12.0-15.0); WHITE BLOOD COUNT 15.8 x10^3/uL (4.8-10.8)
[2019-08-03 18:09] LABS: CALCIUM 8.7 mg/dL (8.5-10.3); CARBON DIOXIDE - CO2 25 mmol/L (21-32); CHLORIDE 83 mmol/L (101-111); CHOLESTEROL 127 mg/dL; GLUCOSE 455 mg/dL (70-100); SODIUM 128 mmol/L (135-145)
[2019-08-03 18:25] LABS: ALBUMIN 2.8 g/dL (3.2-5.5); ALBUMIN/GLOBULIN RATIO 0.5 (1.0-2.2); ALKALINE PHOSPHATASE 318 IU/L (42-121); ALT ALANINE AMINOTRANSFERASE 31 IU/L (10-60); AST ASPARTATE AMINOTRANSFERASE 45 IU/L (10-42); BILIRUBIN,TOTAL 0.6 mg/dL (0.2-1.0); BUN - BLOOD UREA NITROGEN 19 mg/dL (6-20); CHOL/HDL RATIO 3.7 (<4.4); GFR - MDRD 58 (>89); HDL CHOLESTEROL 34 mg/dL; LDL CHOLESTEROL,CALCULATED 51 mg/dL; LDL/HDL RATIO 1.5 (<4.4); TOTAL PROTEIN 8.8 g/dL (6.7-8.2); VLDL CHOLESTEROL 42 mg/dL
== END 2019-08-03 09:26 | disposition home or self-care (01) ==
LOC: LAB.S 09:25
PROVIDERS: ATTEND Family Medicine
DX: G89.29 Other chronic pain (principal); I95.2 Hypotension due to drugs; K81.9 Cholecystitis, unspecified; K21.9 Gastro-esophageal reflux disease without esophagitis; F11.90 Opioid use, unspecified, uncomplicated
CPT/HCPCS: 36415; 80053; 80061; 83721; 85025

== ENCOUNTER 2019-08-05 18:36 | Outpatient (CLI) | payer MEDICAID | END 2019-08-05 18:37 | disposition short-term general hospital (02) | LOC: EMS 18:36 | PROVIDERS: ATTEND Surgery | DX: R10.11 Right upper quadrant pain (principal) | CPT/HCPCS: A0425; A0429 ==

== ENCOUNTER 2019-10-27 18:31 | Outpatient (CLI) | payer MEDICAID | END 2019-10-27 23:59 | disposition critical access hospital (66) | LOC: EMS 18:31 | PROVIDERS: ATTEND Surgery | DX: R41.82 Altered mental status, unspecified (principal); R68.83 Chills (without fever); R25.2 Cramp and spasm; R73.09 Other abnormal glucose | CPT/HCPCS: A0425; A0427; A0999 ==

== ENCOUNTER 2019-10-27 18:57 | Inpatient (IN) | payer MEDICAID ==
[2019-10-27 19:27] LABS: ABG BASE EXCESS 0.3 mmol/L (-2.0-3.0); ABG HCO3 26.1 mmol/L (22.0-26.0); ABG OXYGEN SATURATION 96 % (94-98); ABG PCO2 47 mmHg (34-45); ABG PH 7.36 (7.35-7.45); ABG PO2 84 mmHg (80-100); ABG TCO2 27.6 MMOL/L (21.0-29.0); ALLEN TEST POSITIVE
[2019-10-27 19:30] LABS: BASOPHILS % (AUTO) 0.4 %; EOSINOPHILS % (AUTO) 0.2 %; HGB - HEMOGLOBIN 10.7 g/dL (12.0-16.0); LYMPHOCYTES # (AUTO) 2.3 10^3/uL (1.5-3.5); LYMPHOCYTES % (AUTO) 21.8 %; MEAN CORPUSCULAR HEMOGLOBIN 27.9 pg (27.0-31.0); MEAN CORPUSCULAR HGB CONC 32.5 g/dL (32.0-36.0); MEAN CORPUSCULAR VOLUME 85.7 fL (81.0-99.0); MEAN PLATELET VOLUME 11.1 fL (7.9-10.8); MONOCYTES # (AUTO) 0.5 10^3/uL (0.0-1.0); MONOCYTES % (AUTO) 4.7 %; NEUTROPHILS # (AUTO) 7.7 10^3/uL (1.5-6.6); NEUTROPHILS % (AUTO) 72.3 %; PLT - PLATELET COUNT 492 10^3/uL (130-450); RED BLOOD COUNT 3.84 10^6/uL (4.20-5.40); RED CELL DISTRIBUTION WIDTH 25.1 % (12.0-15.0); WHITE BLOOD COUNT 10.6 x10^3/uL (4.8-10.8)
[2019-10-27 19:35] LABS: PT - PROTHROMBIN TIME 11.1 secs (9.9-12.6)
[2019-10-27 19:58] LABS: MUDS CUTOFF CONCENTRATIONS CUTOFF CONC BELOW:
[2019-10-27 20:01] LABS: BILIRUBIN,URINE NEGATIVE (NEGATIVE); GLUCOSE, URINE (UA) 500 mg/dL (NEGATIVE); KETONES,URINE (UA) NEGATIVE (NEGATIVE); LEUKOCYTE ESTERASE, URINE NEGATIVE (NEGATIVE); NITRITE,URINE NEGATIVE (NEGATIVE); OCCULT BLOOD,URINE NEGATIVE (NEGATIVE); PROTEIN,URINE NEGATIVE (NEGATIVE); UROBILINOGEN,URINE 0.2 (NORMAL) E.U./dL (NORMAL)
--- NOTE | 2019-10-27 20:03 | CT Report ---
Reason: Found REYNA meza Procedure Date: 10/27/2019 Accession Number: [id number] / [id number] Procedure: CT - HEAD WO CPT Code: Final Report FULL RESULT: EXAM: CT HEAD EXAM DATE: 10/27/2019 07:43 PM. CLINICAL HISTORY: Found REYNA meza. COMPARISON: HEAD W/O 01/25/2013 11:50 PM. TECHNIQUE: Multiaxial CT images were obtained from the foramen magnum to the vertex. Reformats: Sagittal and coronal. IV contrast: None. In accordance with CT protocol optimization, one or more of the following dose reduction techniques were utilized for this exam: automated exposure control, adjustment of mA and/or KV based on patient size, or use of iterative reconstructive technique. FINDINGS: Parenchyma: No intraparenchymal hemorrhage. No evidence of mass, midline shift, or CT findings of infarction. Mahmood-white differentiation is distinct. Extraaxial Spaces: Normal for age. No subdural or epidural collections identified. Ventricles: Normal in size and position. Sinuses and Orbits: Imaged paranasal sinuses, orbits, and mastoids show no significant abnormality. Bones: No evidence of fracture or calvarial defect. Other: None. IMPRESSION: Normal head CT. RADIA
[2019-10-27 20:07] LABS: CLARITY,URINE CLEAR (CLEAR)
[2019-10-27 20:09] LABS: PLATELET ESTIMATE, MANUAL INCREASED (>450,000) (NORMAL); PLATELET MORPHOLOGY NORMAL APPEARANCE (NORMAL)
--- NOTE | 2019-10-27 20:11 | XRAY Report ---
Reason: Chest Pain Procedure Date: 10/27/2019 Accession Number: [id number] / [id number] Procedure: XR - Chest 1 View X-Ray CPT Code: 98371 Final Report FULL RESULT: EXAM: CHEST RADIOGRAPHY EXAM DATE: 10/27/2019 07:45 PM. CLINICAL HISTORY: Chest Pain. COMPARISON: CHEST 2 VIEW 05/10/2019 8:38 PM. TECHNIQUE: Upright AP view. FINDINGS: Lungs/Pleura: Skin folds project over the medial upper chest bilaterally. No focal consolidation is identified. No interstitial abnormality or significant peribronchial cuffing is identified. No pneumothorax or gross pleural fluid. Mediastinum: Within exam limitations, the cardiomediastinal contour is normal. Other: None. IMPRESSION: No evidence of active cardiopulmonary disease. RADIA
[2019-10-27 20:12] LABS: AMPHETAMINE SCREEN,URINE NEGATIVE (NEGATIVE); BENZODIAZEPINES SCREEN, URINE NEGATIVE (NEGATIVE); COCAINE SCREEN URINE NEGATIVE (NEGATIVE); METHADONE SCREEN, URINE NEGATIVE (NEGATIVE); METHAMPHETAMINES SCREEN, URINE NEGATIVE (NEGATIVE); OPIATE SCREEN, URINE NEGATIVE (NEGATIVE); OXYCODONE SCREEN, URINE POSITIVE (NEGATIVE); PROPOXYPHENE SCREEN, URINE NEGATIVE (NEGATIVE); TRICYCLIC ANTIDEPRESSANT,URINE NEGATIVE (NEGATIVE)
[2019-10-27 20:23] LABS: ALBUMIN 2.2 g/dL (3.2-5.5); ALBUMIN/GLOBULIN RATIO 0.4 (1.0-2.2); ALKALINE PHOSPHATASE 690 IU/L (42-121); ALT ALANINE AMINOTRANSFERASE 23 IU/L (10-60); AST ASPARTATE AMINOTRANSFERASE 29 IU/L (10-42); BILIRUBIN,TOTAL 0.4 mg/dL (0.2-1.0); BUN - BLOOD UREA NITROGEN 14 mg/dL (6-20); CALCIUM 7.3 mg/dL (8.5-10.3); CARBON DIOXIDE - CO2 27 mmol/L (21-32); CHLORIDE 100 mmol/L (101-111); CK- CREATINE KINASE 97 IU/L (22-269); CREATININE 0.6 mg/dL (0.4-1.0); GLUCOSE 177 mg/dL (70-100); LIPASE 13 U/L (22-51); SODIUM 134 mmol/L (135-145); TOTAL PROTEIN 7.4 g/dL (6.7-8.2)
[2019-10-27] MEDS ORDERED: FOLIC ACID INJ 1 MG, THIAMINE INJ 100 MG, MAGNESIUM SULFATE 2 GM, MULTIVITAMIN 10 ML in... IV STA ×5 (21:00)
[2019-10-27] MEDS ORDERED: FOLIC ACID 5 MG/1 ML 10ML MDV ONE (21:10)
[2019-10-27] MEDS ORDERED: THIAMINE 100 MG/1 ML 2 ML MDV ONE (21:10)
[2019-10-27] MEDS ORDERED: MAGNESIUM SULFATE 2 GRAM 0 GM/0 ML BAG IV ONE (21:28)
[2019-10-27] MEDS ORDERED: POTASSIUM CHLORIDE 20 MEQ/15 ML UDC PO ONE (22:00)
[2019-10-27] MEDS ORDERED: METOCLOPRAMIDE 10 MG TABLET PO PRN (22:21)
--- NOTE | 2019-10-27 22:21 | HISTORY & PHYSICAL EXAMINATION ---
Chief Complaint - Chief Complaint Chief Complaint: Unconscious History of Present Illness - Admitted From Admitted From:: Home - History Obtained From Records Reviewed: Yes History obtained from: Patient and medical records Exam Limitations: None - History of Present Illness HPI Comment/Other: Patient is a 54-year-old female with past medical history significant for type 2 diabetes mellitus on insulin, hypertension, anxiety, gout, polysubstance abuse with methamphetamines, heroin, marijuana and history of alcohol abuse with chronic pancreatitis, cirrhosis, chronic cholelithiasis, history of a splenic infarct, GERD with chronic pain on chronic opiates who is a frequent flyer in the emergency department due to chronic abdominal pain and presented to the emergency department today after being found down at home. The patient states that she last remembers being normal this morning. She states that she ate her breakfast and took her normal 5 units of short acting insulin. She states that she does not remember the thing after that. She denies drinking any alcohol or doing any illegal substances today. She does take her OxyContin twice a day and does not remember if she took it this morning. The patient lives with her sister who had been out of the house but returned home this evening to find her sister at the bottom of the stairs passed out. The patient was unresponsive and therefore paramedics were called. Patient was last seen in the kitchen getting cereal this morning. When paramedics arrived at the scene they found that the patient's blood glucose registered as well. The patient was given 50 g of D10 and repeat blood glucose was over 400. The patient was placed on a D10 drip and brought into the emergency department. On arrival to the emergency department the patient was slightly drowsy but was much more alert and able to answer questions appropriately. The patient however was hypothermic, with bradycardia and borderline blood pressure. She was not hypoxic or in any respiratory distress. Patient had routine lab work performed which did show a slightly elevated lactic acid of 2.5, an elevated alk phos of 690 which is slightly elevated from her baseline, her sodium, potassium and chloride were all low and blood glucose was 177. Patient's urine analysis was negative. Her WBC was normal and hemoglobin was stable. The patient's blood gas showed a normal pH. Patient's lipase was normal and CK level was normal. Patient is CT of her head which showed no acute intracranial process. Patient had a chest x-ray which showed no evidence of pneumonia. Blood cultures were drawn but essentially patient did not appear to have any ongoing infection. In the emergency room the patient's blood glucose seem to have stabilized but despite getting a bear hugger and allowing for several hours of warming the patient's temperature remained low and she remained bradycardic. Patient otherwise appeared to be stable and was completely lucid. Decision was made to place her in the hospital for observation and continued warming until her core temperature normalizes. The patient states that she stopped drinking about 2 years ago but still smokes about half a pack a day. The patient did admit to leg cramps, chronic abdominal pain and feeling hot flashes of hot and cold. Patient otherwise denies any headaches, blurred vision, runny nose, sore throat, nasal congestion, night sweats, chest pain, shortness of breath, orthopnea, PND, cough, nausea, vomiting, diarrhea, urinary urgency, urinary frequency, dysuria, back pain, neck stiffness, lower extremity swelling, joint swelling, recent unintentional weight loss, or any focal neurologic deficits. 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 TE[employer]ER: reports: None : reports: None HEENT: reports: Other Psych: reports: Depression Musculoskeletal: reports: Gout Derm: reports: Other MRSA Hx?: No Other Past Medical History: Chronic abdominal pain with opioid dependence - Past Surgical History General: reports: Splenectomy Ortho: reports: Hip replacement, Rotator cuff repair, Other - Family & Social History Family History: Mother: (Mother of a brain tumor and father of a pulmonary embolism), Cancer, Father: , Sister: Alive and Well Family History Comment/Other: The patient's mother had a brain tumor, and her sister had breast cancer with no other known family history. Living arrangement: At home Living Situation: With family Social History Notes: The patient states that she is originally from [facility] [place] to be closer to her sister and father. She currently lives at [facility] in [place] with her sister. She is her 12 years ago. She has never had any children. The patient formerly used methamphetamine and heroin but states she has not used for many months. Sh does state that she smokes marijuana. The patient admits to half a pack a day of tobacco use and has been smoking for over 37 years. She states that she was previously a heavy drinker but has not been drinking for the last 2 years. She wishes to be a FULL code. - Substance History Use: Uses substance without health or social issues: Tobacco, Amphetamine, Cannabis - POLST Patient has POLST: No POLST Status: Full Code Meds/Allgy - Home Medications Home Medications: Ambulatory Orders Medication Instructions Recorded Confirmed Atorvastatin Calcium 20 mg PO DAILY #30 tablet 06/07/18 10/27/19 Gabapentin [Neurontin] 100 mg PO TID #90 capsule 06/07/18 10/27/19 Omeprazole 20 mg PO DAILY 08/12/18 10/27/19 Insulin Aspart [NovoLOG] 1 - 5 unit SUBQ 02/16/19 10/27/19 0800,1200,1700,2100 #2 pen Insulin Glargine [Lantus Solostar] 10 unit SUBQ QPM #2 pen 02/16/19 10/27/19 Famotidine 20 mg PO DAILY #30 tablet 04/13/19 10/27/19 Naproxen 375 mg PO BID #20 tablet 04/13/19 10/27/19 oxyCODONE [Roxicodone] 5 mg PO TID PRN #25 tablet 04/13/19 10/27/19 oxyCODONE [Roxicodone] 5 mg PO Q4-6H PRN #20 tablet 04/20/19 10/27/19 - Allergies Allergies/Adverse Reactions: Allergies Allergy/AdvReac Type Severity Reaction Status Date / Time No Known Drug Allergies Allergy Verified 10/27/19 21:04 Review of Systems - Other Findings Other Findings: A comprehensive review of systems was performed the pertinent positives and negatives are stated above in the HPI and the remainder of the review of systems is negative. Prior Level of Functionality: Independent, does not use any assistance devices. Exam - Vital Signs Reviewed Vital Signs: Yes Vital Signs: Vital Signs x48h Temp Pulse Resp BP Pulse Ox 10/27/19 22:13 32.2 C L 54 L 17 99/64 96 10/27/19 21:15 31.9 C L 59 L 17 97/63 98 10/27/19 21:07 35 C L 52 L 16 90/62 96 10/27/19 20:36 52 L 16 102/62 96 10/27/19 20:09 30 C L 52 L 16 89/52 L 99 10/27/19 19:04 68 24 124/104 H 96 - Physical Exam General Appearance: positive: Alert, Anxious, Other (Chronically ill-appearing, appears older than her age) Eyes Bilateral: positive: Normal inspection, PERRL, EOMI, No lid inflammation, Conjunctivae nml, No scleral icterus ENT: positive: ENT inspection nml, Pharynx nml, Dry mucous membranes. negative: Purulent nasal drainage, Pharyngeal erythema, Oral lesions Neck: positive: Nml inspection, Thyroid nml, No JVD, Trachea midline. negative: Thyromegaly, Lymphadenopathy (R), Lymphadenopathy (L), Stiff neck, Kernig's sign, Carotid bruit, Tracheal deviation Respiratory: positive: Chest non-tender, No respiratory distress, Breath sounds nml. negative: Wheezes, Rales, Rhonchi Cardiovascular: positive: No murmur, No gallop, Bradycardia Peripheral Pulses: positive: 2+ Abdomen: positive: No organomegaly, Nml bowel sounds, No distention, Tenderness (Epigastric and right upper quadrant tenderness). negative: Guarding, Rebound, Hepatomegaly Back: positive: Nml inspection. negative: CVA tenderness (R), CVA tenderness (L) Skin: positive: No rash, Warm, Dry, Pallor. negative: Cyanosis, Diaphoresis, Skin rash Extremities: positive: Non-tender, Full ROM, Nml appearance, No pedal edema Neurologic/Psychiatric: positive: Oriented x3, CN's nml (2-12), Motor nml, Sensation nml, Mood/affect nml Conclusion/Plan - Problem List (1) Hypothermia Conclusion/Plan: Patient with hypothermia on presentation She was found down at home and on presentation was hypoglycemic with blood glucose reading of low She responded well to oral glucose and a dextrose drip Despite improvement in blood glucose patient remained hypothermic Patient was given a bear hugger for several hours in the emergency department but temperature did not improve She was worked up for sepsis but does not appear to have any obvious source of infection Blood cultures are pending Patient will be placed in observation with continued bear hugger and warmed fluids We will continue to monitor blood sugars as this is the likely source of her hypothermia Qualifiers: Encounter type: initial encounter Qualified Code(s): T68.XXXA - Hypothermia, initial encounter (2) Hypoglycemia Conclusion/Plan: Patient was initially found unconscious at home and had been down for unknown period of time. I believe she was likely down for several hours given her persistent hypothermia and bradycardia despite improvement in her blood glucose Patient's blood glucose seem to respond well to initial oral glucose and dextrose drip On arrival to the medical schneider her blood glucose is back down to 42 It is unclear as to why she was hypoglycemic although I suspect that she may have taken too much long-acting insulin by mistake Patient states that she took a short acting insulin 5 units which is her normal dose with her breakfast but does not remember anything after that Given that she continues to have persistent hypoglycemia many hours after her short acting insulin it is most likely that she did take high dose of long- acting insulin We will continue to monitor her blood glucose She will be started on a diet if her blood glucose continues to drop we will place her back on a dextrose drip We will hold her insulin for now Infectious work-up is negative (3) Bradycardia Conclusion/Plan: Likely secondary to hypothermia which is likely secondary to patient's hypoglycemia Patient is not on any rate control agents This should improve as patient's hypothermia improves We will continue to monitor on telemetry but currently she is asymptomatic with her bradycardia (4) Opioid dependence Conclusion/Plan: Patient has history of opioid dependence secondary to chronic abdominal pain from chronic pancreatitis She is on OxyContin 20 mg twice daily according to her We will have pharmacy verify this dosing In the meantime she will be given short acting oxycodone It does not appear that her initial presentation was due to opiate overdose as she was hypoglycemic on presentation We will avoid IV narcotics (5) Diabetes mellitus type 2 in nonobese Conclusion/Plan: Patient has insulin-dependent diabetes mellitus type 2 She presented with hypoglycemia likely secondary to overdose with long-acting insulin For now we will hold the patient's insulin She will be placed on sliding scale insulin we will monitor her blood glucose initially hourly and then 4 times daily Carb controlled diet (6) Abdominal pain Conclusion/Plan: Chronic abdominal pain secondary to chronic pancreatitis Placed on oxycodone as needed Confirm OxyContin dose prior to starting (7) GERD (gastroesophageal reflux disease) Conclusion/Plan: Continue PPI (8) Hypokalemia Conclusion/Plan: Replace potassium Monitor (9) Hyponatremia Conclusion/Plan: Appears to have hypovolemic hyponatremia We will give IV fluids Monitor (10) Tobacco dependence Conclusion/Plan: Counseled and offered nicotine patch Patient refuses She continues to smoke half a pack a day and understands the risks of continued tobacco abuse - Lab Results Lab results reviewed: Yes Fish Bones: 10/27/19 19:18 10/27/19 19:55 Other Lab Results: Laboratory Tests 10/27/19 10/27/19 10/27/19 19:16 19:18 19:18 WBC 10.6 RBC 3.84 L Hgb 10.7 L Hct 32.9 L MCV 85.7 MCH 27.9 MCHC 32.5 RDW 25.1 H Plt Count 492 H MPV 11.1 H Neut # (Auto) 7.7 H Lymph # (Auto) 2.3 [place] # (Auto) 0.5 Eos # (Auto) 0.0 Baso # (Auto) 0.0 Absolute Nucleated RBC 0.00 Nucleated RBC % 0.0 Manual Slide Review Indicated Platelet Estimate INCREASED (>450,000) Platelet Morphology NORMAL APPEARANCE RBC Morph Micro Appear 1+ HYPOCHROMASIA PT INR Bld Gas Analysis Time 1920 Sample Site LEFT RADIAL ABG pH 7.36 ABG pCO2 47 H ABG pO2 84 ABG HCO3 26.1 H ABG Total CO2 27.6 ABG O2 Saturation 96 ABG Base Excess 0.3 Sandor Test POSITIVE Room Air YES Sodium Potassium Chloride Carbon Dioxide Anion Gap BUN Creatinine Estimated GFR (MDRD) Glucose Lactic Acid Calcium Total Bilirubin AST ALT Alkaline Phosphatase Total Creatine Kinase Troponin I High Sens 3.2 Total Protein Albumin Globulin Albumin/Globulin Ratio Lipase Urine Color Urine Clarity Urine pH Ur Specific [place] Urine Protein Urine Glucose (UA) Urine Ketones Urine Occult Blood Urine Nitrite Urine Bilirubin Urine Urobilinogen Ur Leukocyte Esterase Ur Microscopic Review Urine Culture Comments Urine Opiates Screen Ur Oxycodone Screen Urine Methadone Screen Ur Propoxyphene Screen Ur Barbiturates Screen Ur Tricyclics Screen Ur Phencyclidine Scrn Ur Amphetamine Screen U Methamphetamines Scrn U Benzodiazepines Scrn Urine Cocaine Screen U Cannabinoids Screen Ethyl Alcohol 10/27/19 10/27/19 10/27/19 19:18 19:18 19:50 WBC RBC Hgb Hct MCV MCH MCHC RDW Plt Count MPV Neut # (Auto) Lymph # (Auto) [place] # (Auto) Eos # (Auto) Baso # (Auto) Absolute Nucleated RBC Nucleated RBC % Manual Slide Review Platelet Estimate Platelet Morphology RBC Morph Micro Appear PT 11.1 INR 1.0 Bld Gas Analysis Time Sample Site ABG pH ABG pCO2 ABG pO2 ABG HCO3 ABG Total CO2 ABG O2 Saturation ABG Base Excess Sandor Test Room Air Sodium Potassium Chloride Carbon Dioxide Anion Gap BUN Creatinine Estimated GFR (MDRD) Glucose Lactic Acid 2.5 H Calcium Total Bilirubin AST ALT Alkaline Phosphatase Total Creatine Kinase Troponin I High Sens Total Protein Albumin Globulin Albumin/Globulin Ratio Lipase Urine Color Urine Clarity Urine pH Ur Specific [place] Urine Protein Urine Glucose (UA) Urine Ketones Urine Occult Blood Urine Nitrite Urine Bilirubin Urine Urobilinogen Ur Leukocyte Esterase Ur Microscopic Review Urine Culture Comments Urine Opiates Screen NEGATIVE Ur Oxycodone Screen POSITIVE H Urine Methadone Screen NEGATIVE Ur Propoxyphene Screen NEGATIVE Ur Barbiturates Screen NEGATIVE Ur Tricyclics Screen NEGATIVE Ur Phencyclidine Scrn NEGATIVE Ur Amphetamine Screen NEGATIVE U Methamphetamines Scrn NEGATIVE U Benzodiazepines Scrn NEGATIVE Urine Cocaine Screen NEGATIVE U Cannabinoids Screen POSITIVE H Ethyl Alcohol 10/27/19 10/27/19 19:50 19:55 WBC RBC Hgb Hct MCV MCH MCHC RDW Plt Count MPV Neut # (Auto) Lymph # (Auto) [place] # (Auto) Eos # (Auto) Baso # (Auto) Absolute Nucleated RBC Nucleated RBC % Manual Slide Review Platelet Estimate Platelet Morphology RBC Morph Micro Appear PT INR Bld Gas Analysis Time Sample Site ABG pH ABG pCO2 ABG pO2 ABG HCO3 ABG Total CO2 ABG O2 Saturation ABG Base Excess Sandor Test Room Air Sodium 134 L Potassium 3.0 L Chloride 100 L Carbon Dioxide 27 Anion Gap 7.0 BUN 14 Creatinine 0.6 Estimated GFR (MDRD) 105 Glucose 177 H Lactic Acid Calcium 7.3 L Total Bilirubin 0.4 AST 29 ALT 23 Alkaline Phosphatase 690 H Total Creatine Kinase 97 Troponin I High Sens Total Protein 7.4 Albumin 2.2 L Globulin 5.2 H Albumin/Globulin Ratio 0.4 L Lipase 13 L Urine Color YELLOW Urine Clarity CLEAR Urine pH 6.0 Ur Specific [place] 1.010 Urine Protein NEGATIVE Urine Glucose (UA) 500 H Urine Ketones NEGATIVE Urine Occult Blood NEGATIVE Urine Nitrite NEGATIVE Urine Bilirubin NEGATIVE Urine Urobilinogen 0.2 (NORMAL) Ur Leukocyte Esterase NEGATIVE Ur Microscopic Review NOT INDICATED Urine Culture Comments NOT INDICATED Urine Opiates Screen Ur Oxycodone Screen Urine Methadone Screen Ur Propoxyphene Screen Ur Barbiturates Screen Ur Tricyclics Screen Ur Phencyclidine Scrn Ur Amphetamine Screen U Methamphetamines Scrn U Benzodiazepines Scrn Urine Cocaine Screen U Cannabinoids Screen Ethyl Alcohol < 5.0 - Diagnostic Imaging Results Diagnostic Imaging Results: positive: Final report reviewed Diagnostic Imaging Results Comments: CT head Impression: Normal head CT Chest x-ray Impression: No evidence of acute cardiopulmonary disease - EKG Results EKG Interpreted Independently: Yes EKG Findings: EKG read as atrial fibrillation with rapid ventricular response. But it appears the patient was likely shivering and there is artifact. Patient actually has sinus bradycardia. Core Measures - Anticipated LOS I expect patient to be DC'd or transferred within 96 hours.: Yes - DVT/VTE - Prophylaxis VTE/DVT Prophylaxis med ordered at admit?: Yes
[2019-10-27] MEDS ORDERED: IBUPROFEN 600 MG TABLET PO PRN (22:22)
[2019-10-27] MEDS ORDERED: PROCHLORPERAZINE 10 MG/2 ML VIAL IVP PRN (22:22)
[2019-10-27] MEDS ORDERED: ONDANSETRON ODT 4 MG TABLET TL PRN (22:22)
[2019-10-27] MEDS ORDERED: ONDANSETRON 4 MG/2 ML VIAL IVP PRN (22:22)
[2019-10-27] MEDS ORDERED: SODIUM CHLORIDE FLUSH 0.9% 10 ML SYRINGE IVP PRN (22:22)
--- NOTE | 2019-10-27 22:28 | ED Physician Documentation ---
History of Present Illness - Stated complaint Stated Complaint: HYPOGLYCEMIA - Chief complaint Chief Complaint: General - History obtained from History obtained from: Patient, EMS (Pt is a 54 yo F w/ hx/o alcohol and polysubstance abuse, diabetes, chronic abdominal pain who presents after being found down at home unconscious. It is unknown how long she was down for, she states last thing she recalls is going to the kitchen to get cereal sometime today. She states she has been in her usual state of health over the last several days and denies any cough or URI sx, fever, vomiting, diarrhea, or urinary sx. She denies alcohol or drug use. She was found by EMS unresponsive at the bottom of the stairs inside the house. Her glucose read "low" per EMS and they gave her 25gm of D50. There was minimal improvement in the glucose so they gave her an additional 25gm and started her on D10 drip. Subsequent glucose was in the 200s and patient became more responsive.) Review of Systems Constitutional: reports: Reviewed and negative Eyes: reports: Reviewed and negative Ears: reports: Reviewed and negative Nose: reports: Reviewed and negative Throat: reports: Reviewed and negative Cardiac: reports: Reviewed and negative Respiratory: reports: Reviewed and negative GI: reports: Abdominal Pain. denies: Abdominal Swelling, Nausea, Vomiting, Constipation, Diarrhea, Hematemesis, Bloody / black stool : reports: Reviewed and negative Skin: reports: Reviewed and negative Musculoskeletal: reports: Back pain, Extremity pain, Other (Patient reports pain throughout her entire body as well as cramping in all her extremities.). 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 : None HEENT: Other Psych: Depression Musculoskeletal: Gout Derm: Other - Past Surgical History Past Surgical History: Yes General: Splenectomy Ortho: Hip replacement, Rotator cuff repair, Other - Present Medications Home Medications: Ambulatory Orders Medication Instructions Recorded Confirmed Atorvastatin Calcium 20 mg PO DAILY #30 tablet 06/07/18 10/15/18 Gabapentin [Neurontin] 100 mg PO TID #90 capsule 06/07/18 10/15/18 lisinopriL [Lisinopril] 10 mg PO DAILY #30 tablet 06/07/18 10/15/18 Omeprazole 20 mg PO DAILY 08/12/18 10/15/18 Insulin Aspart [NovoLOG] 1 - 5 unit SUBQ 02/16/19 0800,1200,1700,2100 #2 pen Insulin Glargine [Lantus Solostar] 10 unit SUBQ QPM #2 pen 02/16/19 Ondansetron Odt [Zofran] 4 mg TL Q6H PRN 04/09/19 04/09/19 Famotidine 20 mg PO DAILY #30 tablet 04/13/19 Naproxen 375 mg PO BID #20 tablet 04/13/19 Sucralfate [Carafate] 1 gm PO TID #20 tablet 04/13/19 oxyCODONE [Roxicodone] 5 mg PO TID PRN #25 tablet 04/13/19 oxyCODONE [Roxicodone] 5 mg PO Q4-6H PRN #20 tablet 04/20/19 Metoclopramide [Reglan] 10 mg PO Q6H PRN #20 tablet 04/21/19 Amox/Clav 875/125 [Augmentin] 1 each PO Q12H #20 tablet 05/11/19 oxyCODONE [Roxicodone] 5 mg PO Q4HR PRN #20 tablet 05/11/19 - Allergies Allergies/Adverse Reactions: Allergies Allergy/AdvReac Type Severity Reaction Status Date / Time No Known Drug Allergies Allergy Verified 10/27/19 21:04 - Social History Does the pt smoke?: Yes Smoking Status: Current every day smoker Does the pt drink ETOH?: No Does the pt have substance abuse?: Yes - Immunizations Immunizations are current?: Yes Immunizations: TDAP >10years/unknown - POLST Patient has POLST: No POLST Status: Full Code PD ED PE NORMAL - Vitals Vital signs reviewed: Yes - General General: Alert and oriented X 3, Other (Cachexic, shivering, appears chronically ill. ) - HEENT HEENT: Atraumatic, PERRL, EOMI, Moist mucous membranes, Pharynx benign - Neck Neck: Supple, no meningeal sign, No bony TTP, No adenopathy - Cardiac Cardiac: RRR, No murmur, No gallop, No rub - Respiratory Respiratory: No respiratory distress, Clear bilaterally - Abdomen Abdomen: Normal bowel sounds, Soft, Non distended, Other (generalized abdominal tenderness) - Back Back: No CVA TTP, No spinal TTP - Derm Derm: Normal color, Other (Cool to touch. ) - Extremities Extremities: No deformity, No calf tenderness / cord, Other (bilateraly ankle swelling L>R, tenderness w/ palpation of all extremities, no obvious injury/deformity, no contusion or skin compromise. ) - Neuro Neuro: Alert and oriented X 3 Eye Opening: Spontaneous Motor: Obeys Commands Verbal: Oriented GCS Score: 15 - Psych Psych: Normal mood, Normal affect Results - Vitals Vitals: Vital Signs - 24 hr 10/27/19 10/27/19 10/27/19 19:04 20:09 20:36 Temperature 30 C L Heart Rate 68 52 L 52 L Respiratory 24 16 16 Rate Blood Pressure 124/104 H 89/52 L 102/62 O2 Saturation 96 99 96 10/27/19 10/27/19 10/27/19 21:07 21:15 22:13 Temperature 35 C L 31.9 C L 32.2 C L Heart Rate 52 L 59 L 54 L Respiratory 16 17 17 Rate Blood Pressure 90/62 97/63 99/64 O2 Saturation 96 98 96 Oxygen O2 Source Room air - Labs Labs: Laboratory Tests 10/27/19 10/27/19 10/27/19 19:16 19:18 19:18 WBC 10.6 RBC 3.84 L Hgb 10.7 L Hct 32.9 L MCV 85.7 MCH 27.9 MCHC 32.5 RDW 25.1 H Plt Count 492 H MPV 11.1 H Neut # (Auto) 7.7 H Lymph # (Auto) 2.3 [place] # (Auto) 0.5 Eos # (Auto) 0.0 Baso # (Auto) 0.0 Absolute Nucleated RBC 0.00 Nucleated RBC % 0.0 Manual Slide Review Indicated Platelet Estimate INCREASED (>450,000) Platelet Morphology NORMAL APPEARANCE RBC Morph Micro Appear 1+ HYPOCHROMASIA PT INR Bld Gas Analysis Time 192 Sample Site LEFT RADIAL ABG pH 7.36 ABG pCO2 47 H ABG pO2 84 ABG HCO3 26.1 H ABG Total CO2 27.6 ABG O2 Saturation 96 ABG Base Excess 0.3 Sandor Test POSITIVE Room Air YES Sodium Potassium Chloride Carbon Dioxide Anion Gap BUN Creatinine Estimated GFR (MDRD) Glucose Lactic Acid Calcium Total Bilirubin AST ALT Alkaline Phosphatase Total Creatine Kinase Troponin I High Sens 3.2 Total Protein Albumin Globulin Albumin/Globulin Ratio Lipase Urine Color Urine Clarity Urine pH Ur Specific [place] Urine Protein Urine Glucose (UA) Urine Ketones Urine Occult Blood Urine Nitrite Urine Bilirubin Urine Urobilinogen Ur Leukocyte Esterase Ur Microscopic Review Urine Culture Comments Urine Opiates Screen Ur Oxycodone Screen Urine Methadone Screen Ur Propoxyphene Screen Ur Barbiturates Screen Ur Tricyclics Screen Ur Phencyclidine Scrn Ur Amphetamine Screen U Methamphetamines Scrn U Benzodiazepines Scrn Urine Cocaine Screen U Cannabinoids Screen Ethyl Alcohol 10/27/19 10/27/19 10/27/19 19:18 19:18 19:50 WBC RBC Hgb Hct MCV MCH MCHC RDW Plt Count MPV Neut # (Auto) Lymph # (Auto) [place] # (Auto) Eos # (Auto) Baso # (Auto) Absolute Nucleated RBC Nucleated RBC % Manual Slide Review Platelet Estimate Platelet Morphology RBC Morph Micro Appear PT 11.1 INR 1.0 Bld Gas Analysis Time Sample Site ABG pH ABG pCO2 ABG pO2 ABG HCO3 ABG Total CO2 ABG O2 Saturation ABG Base Excess Sandor Test Room Air Sodium Potassium Chloride Carbon Dioxide Anion Gap BUN Creatinine Estimated GFR (MDRD) Glucose Lactic Acid 2.5 H Calcium Total Bilirubin AST ALT Alkaline Phosphatase Total Creatine Kinase Troponin I High Sens Total Protein Albumin Globulin Albumin/Globulin Ratio Lipase Urine Color Urine Clarity Urine pH Ur Specific [place] Urine Protein Urine Glucose (UA) Urine Ketones Urine Occult Blood Urine Nitrite Urine Bilirubin Urine Urobilinogen Ur Leukocyte Esterase Ur Microscopic Review Urine Culture Comments Urine Opiates Screen NEGATIVE Ur Oxycodone Screen POSITIVE H Urine Methadone Screen NEGATIVE Ur Propoxyphene Screen NEGATIVE Ur Barbiturates Screen NEGATIVE Ur Tricyclics Screen NEGATIVE Ur Phencyclidine Scrn NEGATIVE Ur Amphetamine Screen NEGATIVE U Methamphetamines Scrn NEGATIVE U Benzodiazepines Scrn NEGATIVE Urine Cocaine Screen NEGATIVE U Cannabinoids Screen POSITIVE H Ethyl Alcohol 10/27/19 10/27/19 19:50 19:55 WBC RBC Hgb Hct MCV MCH MCHC RDW Plt Count MPV Neut # (Auto) Lymph # (Auto) [place] # (Auto) Eos # (Auto) Baso # (Auto) Absolute Nucleated RBC Nucleated RBC % Manual Slide Review Platelet Estimate Platelet Morphology RBC Morph Micro Appear PT INR Bld Gas Analysis Time Sample Site ABG pH ABG pCO2 ABG pO2 ABG HCO3 ABG Total CO2 ABG O2 Saturation ABG Base Excess Sandor Test Room Air Sodium 134 L Potassium 3.0 L Chloride 100 L Carbon Dioxide 27 Anion Gap 7.0 BUN 14 Creatinine 0.6 Estimated GFR (MDRD) 105 Glucose 177 H Lactic Acid Calcium 7.3 L Total Bilirubin 0.4 AST 29 ALT 23 Alkaline Phosphatase 690 H Total Creatine Kinase 97 Troponin I High Sens Total Protein 7.4 Albumin 2.2 L Globulin 5.2 H Albumin/Globulin Ratio 0.4 L Lipase 13 L Urine Color YELLOW Urine Clarity CLEAR Urine pH 6.0 Ur Specific [place] 1.010 Urine Protein NEGATIVE Urine Glucose (UA) 500 H Urine Ketones NEGATIVE Urine Occult Blood NEGATIVE Urine Nitrite NEGATIVE Urine Bilirubin NEGATIVE Urine Urobilinogen 0.2 (NORMAL) Ur Leukocyte Esterase NEGATIVE Ur Microscopic Review NOT INDICATED Urine Culture Comments NOT INDICATED Urine Opiates Screen Ur Oxycodone Screen Urine Methadone Screen Ur Propoxyphene Screen Ur Barbiturates Screen Ur Tricyclics Screen Ur Phencyclidine Scrn Ur Amphetamine Screen U Methamphetamines Scrn U Benzodiazepines Scrn Urine Cocaine Screen U Cannabinoids Screen Ethyl Alcohol < 5.0 PD MEDICAL DECISION MAKING - ED course Complexity details: reviewed old records, reviewed results, re-evaluated patient, considered differential, d/w patient, other (Discussed w/ ED attending Dr. Gonzalez. ) ED course: Patient presented after being found down for an unknown amount of time. She was noted by EMS to be altered with hypoglycemia. Mental status returned to baseline w/ glucose administration. She was found to be hypothermic in the ED. A sepsis and AMS workup was completed. Labs generally reassuring, noted to be hypokalemic and received potassium replacement. Mild elevate in lactate, likely 2/2 to shivering/being down. Glucose normalized. ABG reassuring. CT Head and Chest xray normal. Initial EKG w/ artifact due to shivering, repeat showed SB in the 50s, no acute st/t changes. UA negative for infection. Patient has been appropriate in the ED, alert and oriented. Glucose stable in the 100s. She is c/o generalized pain but sleeping intermittently and has no other complaints. She is tolerating PO. She was placed on a bear hugger due to hypothermia and given warm fluids to drink and rectal temperatures continue to indicate temps in the 89-90 range. I d/w Dr. Gonzalez and he advised observation admit for hypothermia. I discussed case w/ the hospitalist who kindly agrees to admit the patient for hypothermia. Patient agreeable to stay. Departure - Departure Disposition: ED Place in Observation
[2019-10-27] MEDS ORDERED: MAGNESIUM SULFATE 2 GRAM 2 GM/50 ML BAG IV ONE (22:29)
[2019-10-27] MEDS ORDERED: LORazepam 1 MG TABLET PO PRN (22:29)
[2019-10-28] MEDS: SODIUM CHLORIDE FLUSH 0.9% 10 ML SYRINGE IVP SCH ×3 (00:26→16:56)
[2019-10-28] MEDS: NS W/20 MEQ KCL 1,000 ML IV SCH ×3 (00:26→23:49)
[2019-10-28] MEDS: GABAPENTIN 100 MG CAPSULE PO SCH ×4 (00:26→21:14)
[2019-10-28] MEDS: oxyCODONE 5 MG TABLET PO PRN ×2 (01:06→05:21)
[2019-10-28 06:02] LABS: BASOPHILS % (AUTO) 0.4 %; EOSINOPHILS % (AUTO) 0.2 %; HGB - HEMOGLOBIN 8.5 g/dL (12.0-16.0); LYMPHOCYTES % (AUTO) 24.8 %; MEAN CORPUSCULAR HEMOGLOBIN 27.4 pg (27.0-31.0); MEAN CORPUSCULAR HGB CONC 32.7 g/dL (32.0-36.0); MEAN CORPUSCULAR VOLUME 83.9 fL (81.0-99.0); MEAN PLATELET VOLUME 10.3 fL (7.9-10.8); MONOCYTES # (AUTO) 0.5 10^3/uL (0.0-1.0); MONOCYTES % (AUTO) 6.3 %; NEUTROPHILS # (AUTO) 5.5 10^3/uL (1.5-6.6); NEUTROPHILS % (AUTO) 67.9 %; PLT - PLATELET COUNT 390 10^3/uL (130-450); WHITE BLOOD COUNT 8.1 x10^3/uL (4.8-10.8)
[2019-10-28 06:04] LABS: INR 0.9 (0.8-1.2); PT - PROTHROMBIN TIME 10.7 secs (9.9-12.6)
[2019-10-28 06:11] LABS: ALBUMIN 1.9 g/dL (3.2-5.5); ALBUMIN/GLOBULIN RATIO 0.4 (1.0-2.2); ALKALINE PHOSPHATASE 650 IU/L (42-121); ALT ALANINE AMINOTRANSFERASE 22 IU/L (10-60); AST ASPARTATE AMINOTRANSFERASE 34 IU/L (10-42); BILIRUBIN,TOTAL 0.6 mg/dL (0.2-1.0); BUN - BLOOD UREA NITROGEN 12 mg/dL (6-20); CALCIUM 7.1 mg/dL (8.5-10.3); CARBON DIOXIDE - CO2 26 mmol/L (21-32); CHLORIDE 103 mmol/L (101-111); CREATININE 0.7 mg/dL (0.4-1.0); GLUCOSE 129 mg/dL (70-100); SODIUM 135 mmol/L (135-145); TOTAL PROTEIN 6.4 g/dL (6.7-8.2)
[2019-10-28] MEDS: PANTOPRAZOLE 40 MG TABLET PO SCH (06:12)
[2019-10-28 06:24] LABS: HB2 TOTAL 8.7 g/dL; HEMOGLOBIN A1C 0.69 g/dL; HEMOGLOBIN A1C % 9.4 % (4.6-6.2)
[2019-10-28 06:27] LABS: DIFFERENTIAL COMMENT MANUAL=AUTO DIFF; PLATELET ESTIMATE, MANUAL NORMAL (130-450,000) (NORMAL)
[2019-10-28 06:28] LABS: VBG PH 7.416 (7.31-7.41)
[2019-10-28] MEDS ORDERED: POTASSIUM CHLORIDE 20 MEQ/15 ML UDC PO SCH (08:00)
[2019-10-28] MEDS: INSULIN ASPART 300 UNIT/3 ML PEN SUBQ SCH ×4 (08:04→21:19)
[2019-10-28] MEDS: PRENATAL VITAMIN TABLET PO SCH (08:36)
[2019-10-28] MEDS: ENOXAPARIN 40 MG/0.4 ML SYRINGE SUBQ SCH (08:55)
[2019-10-28] MEDS: oxyCODONE ER 10 MG TABLET PO SCH ×2 (08:56→21:14)
[2019-10-28] MEDS ORDERED: MULTIVITAMIN 10 ML, THIAMINE INJ 100 MG, FOLIC ACID INJ 1 MG in SODIUM CHLORIDE 0.9% 1,... IV SCH (09:00)
[2019-10-28] MEDS ORDERED: lisinopriL 5 MG TABLET PO SCH (09:00)
--- NOTE | 2019-10-28 09:29 | PHARMACY PROGRESS NOTE ---
- Best Possible Medication History Admit Date and Time: 10/27/192221 Processed by: Nursing Medication History completed: Yes Secondary Source(s): Physician records, Pharmacy records, Insurance records As the person ultimately responsible for medication therapy, providers are able to order a medication from an existing home medication list in [facility] via the "Reconcile Routine" prior to Confirmation of that medication by sales support coordinator. Such practice is discouraged except when the physician, in their clinical judgment, deems that a medical need exists for a medication without regard to previous use.
--- NOTE | 2019-10-28 14:58 | Discharge Plan ---
Discharge Plan Problem Reviewed?: Yes Disposition: Home, Self Care Condition: Good Prescriptions: Insulin Glargine [Lantus Solostar] 5 unit SUBQ DAILY #2 pen Diet: Diabetic Activity Restrictions: Activity as Tolerated Shower Restrictions: No Weight Bearing: Full Weight Instruction Topics: Hypoglycemia, COVID-19 [facility], COVID-19 [facility] Statement Health Concerns: You were seen in the hospital because your body temperature was low as well as your blood sugar. It is believed that your body temperature was low because of the low blood sugar. This is a normal response our body has to a low blood sugar. You were warmed up with a machine and your temperature has remained stable. Your blood sugars did drop overnight again and this was likely due to the short acting insulin. It is likely the higher dose you have been receiving at home is too high for you. We have made changes to your insulin as outlined below. Please take this new insulin regimen. Plan of Treatment: The only changes made to your medications is with regards to your insulin. Please now only takes 5 units of Lantus every morning. We have stopped your short acting insulin due to your below blood sugars. Check your blood sugars with every meal. If your blood sugars are persistently elevated above 200 then you can begin to take 1 to 2 units of short acting insulin with your meals. It is important to keep a log of your blood sugars and follow-up with your primary care provider as your insulin may need to be adjusted. If you are having episodes of low blood sugar then please contact your primary care provider or return to the emergency department. Care Goals: Please follow-up with your primary care physician within 1 week. Assessment: Patient expressed understanding of the treatment plan. No Smoking: If you smoke, Please STOP! Call for help. Follow-up with: Lalit Horne MD [Primary Care Provider] -
--- NOTE | 2019-10-28 15:07 | DISCHARGE SUMMARY ---
"Discharge Summary Admit Date: 10/27/19 Discharge Date: 10/31/19 Discharging Provider: Brandan Reynolds Primary Care Provider: Lalit Horne Code Status: Attempt Resuscitation Condition at Discharge: Good Discharge Disposition: 01 Home, Self Care - DIAGNOSES Admission Diagnoses: Hypothermia Hypoglycemia Bradycardia Opioid dependence Diabetes mellitus type 2 in nonobese Abdominal pain GERD Hypokalemia Discharge Diagnoses with Status of Each Condition: Hypoglycemia - resolved. This is likely secondary to her NovoLog at home which was likely too high of a dose for her. She had 2 further episodes of hypoglycemia overnight during this hospitalization. We have decreased her home Lantus to 5 units and it will now be administered in the morning rather than the evening. Diabetes mellitus type 2 in nonobese - stable. Her A1c was 9.4%. Her home insulin regimen has been changed to Lantus 5 units every morning instead of 12 units every evening. We have also discontinued her short acting insulin. Her blood glucose has been ranging from 100 to 220 on this regimen with no episodes of hypoglycemia. I did ask her to check her blood sugar with meals and if it is persistently above 200, then she can begin to take 1 to 2 units of short acting insulin with her meals. Hypothermia - resolved. This is likely secondary to the hypoglycemia. Her TSH was within normal limits. Her temperatures remained stable without a jammie hugger. Chronic pancreatitis - stable. Continue outpatient follow-up with gastroenterology at [facility]. Opioid dependence - stable. She will continue her home dose of oxycodone. She was not provided with a new prescription. GERD - stable. Moderate protein calorie malnutrition - stable. - HPI History of Present Illness: H&P per Dr. Ibarra on 10/27/19: Patient is a 54-year-old female with past medical history significant for type 2 diabetes mellitus on insulin, hypertension, anxiety, gout, polysubstance abuse with methamphetamines, heroin, marijuana and history of alcohol abuse with chronic pancreatitis, cirrhosis, chronic cholelithiasis, history of a splenic infarct, GERD with chronic pain on chronic opiates who is a frequent flyer in the emergency department due to chronic abdominal pain and presented to the emergency department today after being found down at home. The patient states that she last remembers being normal this morning. She states that she ate her breakfast and took her normal 5 units of short acting insulin. She states that she does not remember the thing after that. She denies drinking any alcohol or doing any illegal substances today. She does take her OxyContin twice a day and does not remember if she took it this morning. The patient lives with her sister who had been out of the house but returned home this evening to find her sister at the bottom of the stairs passed out. The patient was unresponsive and therefore paramedics were called. Patient was last seen in the kitchen getting cereal this morning. When paramedics arrived at the scene they found that the patient's blood glucose registered as well. The patient was given 50 g of D10 and repeat blood glucose was over 400. The patient was placed on a D10 drip and brought into the emergency department. On arrival to the emergency department the patient was slightly drowsy but was much more alert and able to answer questions appropriately. The patient however was hypothermic, with bradycardia and borderline blood pressure. She was not hypoxic or in any respiratory distress. Patient had routine lab work performed which did show a slightly elevated lactic acid of 2.5, an elevated alk phos of 690 which is slightly elevated from her baseline, her sodium, potassium and chloride were all low and blood glucose was 177. Patient's urine analysis was negative. Her WBC was normal and hemoglobin was stable. The patient's blood gas showed a normal pH. Patient's lipase was normal and CK level was normal. Patient is CT of her head which showed no acute intracranial process. Patient had a chest x-ray which showed no evidence of pneumonia. Blood cultures were drawn but essentially patient did not appear to have any ongoing infection. In the emergency room the patient's blood glucose seem to have stabilized but despite getting a bear hugger and allowing for several hours of warming the patient's temperature remained low and she remained bradycardic. Patient otherwise appeared to be stable and was completely lucid. Decision was made to place her in the hospital for observation and continued warming until her core temperature normalizes. The patient states that she stopped drinking about 2 years ago but still smokes about half a pack a day. The patient did admit to leg cramps, chronic abdominal pain and feeling hot flashes of hot and cold. Patient otherwise denies any headaches, blurred vision, runny nose, sore throat, nasal congestion, night sweats, chest pain, shortness of breath, orthopnea, PND, cough, nausea, vomiting, diarrhea, urinary urgency, urinary frequency, dysuria, back pain, neck stiffness, lower extremity swelling, joint swelling, recent unintentional weight loss, or any focal neurologic deficits. - CONSULTS | PROCEDURES Consultations: PT - HOSPITAL COURSE Hospital Course: Patient was admitted to the intensive care unit given her hypothermia and bradycardia. She was warmed with a jammie hugger and warm IV fluids. It was believed that her hypothermia secondary to her hypoglycemia and her bradycardia was due to the hypothermia. Her blood sugars remained stable off of IV dextrose and she was tolerating a diet without difficulty. She was taken off of the bear hugger at 10 AM. Her temperature has remained stable since then. Her bradycardia has resolved. The following night, she had another episode of hypoglycemia with a blood glucose of 11. She was symptomatic and minimally responsive during the episode. She was given D10 with improvement in her blood glucose and symptoms. It was attributed to the NovoLog she had received at night. Lantus was then decreased to 7 units every evening and the sliding scale was discontinued. She was monitored throughout the day and her blood sugars remained stable in the 250s. She was then restarted on 2 units of novolog with meals in addition to Lantus. She unfortunately became hypoglycemic once again with a blood glucose less than 20. Then discontinued her short acting and decrease her Lantus to 5 units and switch the administration time to morning rather than evening. She was monitored again for 24 hours and her blood glucose remained stable ranging from the low 100s to as high as 220. She is had no further episodes of hypoglycemia. She will be discharged on Lantus 5 units daily with no short acting insulin. She was asked to check her blood sugars in the morning and with meals. She will need follow-up with her primary care provider within 1 week. - ALLERGIES Allergies/Adverse Reactions: Allergies Allergy/AdvReac Type Severity Reaction Status Date / Time No Known Drug Allergies Allergy Verified 10/27/19 21:04 - MEDICATIONS Home Medications: Ambulatory Orders Medication Instructions Recorded Confirmed Atorvastatin Calcium 20 mg PO DAILY #30 tablet 06/07/18 10/27/19 Omeprazole 40 mg PO DAILY 08/12/18 10/28/19 Famotidine 20 mg PO DAILY #30 tablet 04/13/19 10/27/19 Naproxen 375 mg PO BID #20 tablet 04/13/19 10/27/19 Fluticasone Propion/Salmeterol 1 puffs INH BID 10/28/19 10/28/19 [Wixela 100-50 Inhub] Furosemide 40 mg PO DAILY 10/28/19 10/28/19 Gabapentin 600 mg PO TID 10/28/19 10/28/19 Oxycodone HCl [Oxycontin] 20 mg PO BID 10/28/19 10/28/19 allopurinoL [Allopurinol] 100 mg PO DAILY 10/28/19 10/28/19 Insulin Glargine [Lantus Solostar] 5 unit SUBQ DAILY #2 pen 10/31/19 - PHYSICAL EXAM AT DISCHARGE General Appearance: positive: No acute distress, Alert Eyes Bilateral: positive: Normal inspection ENT: positive: ENT inspection nml Neck: positive: Nml inspection Respiratory: positive: No respiratory distress. negative: Wheezes, Rales, Rhonchi Cardiovascular: positive: Regular rate & rhythm, No murmur. negative: Tachycardia, Bradycardia, Systolic murmur, Diastolic murmur Abdomen: positive: No distention, Tenderness (Mild tenderness in epigastric region.). negative: Guarding, Rebound Skin: positive: Warm, Dry Extremities: positive: Full ROM, No pedal edema Neurologic/Psychiatric: positive: Oriented x3, Other (No focal motor deficits.). negative: Disoriented to person, Disoriented to place, Disoriented to time - LABS Result Diagrams: 10/31/19 05:20 10/31/19 05:20 - TIME SPENT Time Spent in Discharge (Minutes): 35"
--- NOTE | 2019-10-28 18:54 | PROVIDER PROGRESS NOTE ---
Subjective - Prog Note Date Prog Note Date: 10/28/19 - Subjective Subjective: Reports feeling well today. Has no chest pain or dyspnea. Abdominal pain is controlled. She does not think she took extra of her Lantus. She is certain that she only took her short acting insulin prior to her passing out. Current Medications - Current Medications Current Medications: Active Medications Acetaminophen (Tylenol) 650 mg PO Q4HR PRN PRN Reason: Pain 1 to 4 Atorvastatin Calcium (Lipitor) 20 mg PO QPM ON LICENSE OF [facility] Enoxaparin Sodium (Lovenox) 40 mg SUBQ DAILY ON LICENSE OF [facility] Last Admin: 10/28/19 08:55 Dose: 40 mg Gabapentin (Neurontin) 100 mg PO TID ON LICENSE OF [facility] Last Admin: 10/28/19 16:00 Dose: 100 mg Potassium Chloride/Sodium Chloride (Normal Saline 0.9% W/20 Meq Kcl) 1,000 mls @ 100 mls/hr IV .Q10H ON LICENSE OF [facility] Last Admin: 10/28/19 16:23 Dose: Not Given Multivitamins 10 ml/ Thiamine HCl 100 mg/ Folic Acid 1 mg/Sodium Chloride 1,011.2 mls @ 100 mls/hr IV DAILY ON LICENSE OF [facility] Last Infusion: 10/28/19 14:30 Dose: Infused Ibuprofen (Motrin) 600 mg PO Q6HR PRN PRN Reason: Pain 1 to 4 Insulin Aspart (Novolog) 1 - 5 unit SUBQ 0800,1200,1700,2100 ON LICENSE OF [facility]; Protocol Last Admin: 10/28/19 16:52 Dose: 3 unit Insulin Glargine (Lantus Solostar) 10 unit SUBQ QPM ON LICENSE OF [facility] Metoclopramide HCl (Reglan) 10 mg PO Q6H PRN PRN Reason: nausea or headache Ondansetron HCl (Zofran Inj) 4 mg IVP Q6HR PRN PRN Reason: Nausea / Vomiting Ondansetron HCl (Zofran Odt) 4 mg TL Q6HR PRN PRN Reason: Nausea / Vomiting Oxycodone HCl (Oxycontin) 20 mg PO BID ON LICENSE OF [facility] Last Admin: 10/28/19 08:56 Dose: 20 mg Pantoprazole Sodium (Protonix) 40 mg PO QDAC ON LICENSE OF [facility] Last Admin: 10/28/19 06:12 Dose: 40 mg Multivit/Folic Acid/Iron (Trinatal Rx 1) 1 tab PO DAILY ON LICENSE OF [facility] Last Admin: 10/28/19 08:36 Dose: 1 tab Prochlorperazine Edisylate (Compazine Inj) 10 mg IVP Q6HR PRN PRN Reason: Nausea / Vomiting Sodium Chloride (Normal Saline Flush 0.9%) 10 ml IVP PRN PRN PRN Reason: NEEDED PER PROVIDER ORDERS Sodium Chloride (Normal Saline Flush 0.9%) 10 ml IVP 0100,0900,1700 ON LICENSE OF [facility] Last Admin: 10/28/19 16:56 Dose: 10 ml Omeprazole 40 mg PO DAILY 08/12/18 Fluticasone Propion/Salmeterol [Wixela 100-50 Inhub] 1 puffs INH BID 10/28/19 Furosemide 40 mg PO DAILY 10/28/19 Gabapentin 600 mg PO TID 10/28/19 Insulin Glargine [Lantus Solostar] 12 units SUBQ QPM 10/28/19 Insulin Lispro [Humalog Kwikpen U-100] 5 units SUBQ AC 10/28/19 Oxycodone HCl [Oxycontin] 20 mg PO BID 10/28/19 allopurinoL [Allopurinol] 100 mg PO DAILY 10/28/19 Objective - Vital Signs/Intake & Output Reviewed Vital Signs: Yes Vital Signs: Vital Signs x48h Temp Pulse Pulse Resp BP BP Pulse Ox 10/28/19 18:00 63 20 97 10/28/19 17:00 79 14 98 10/28/19 16:00 36.4 C L 58 L 10 L 137/76 H 98 10/28/19 15:48 36.7 C 62 12 127/79 99 10/28/19 15:40 36.6 C 10/28/19 15:00 36.2 C L 58 L 15 98 10/28/19 14:00 36.1 C L 57 L 14 100 10/28/19 13:00 35.8 C L 65 11 L 99 10/28/19 12:30 70 111/64 10/28/19 11:55 36.5 C 82 12 134/89 H 98 10/28/19 11:00 36.6 C 75 18 95 Intake & Output: Intake & Output 10/25/19 10/26/19 10/27/19 10/28/19 23:59 23:59 23:59 23:59 Intake Total 1165.2 3182.200 Output Total 1100 Balance 1165.2 2082.200 - Objective General Appearance: positive: No acute distress, Alert Eyes Bilateral: positive: Normal inspection ENT: positive: ENT inspection nml Neck: positive: Nml inspection Respiratory: positive: No respiratory distress. negative: Rales Cardiovascular: positive: Regular rate & rhythm, No murmur. negative: Tachycardia, Bradycardia, Systolic murmur, Diastolic murmur Abdomen: positive: Non-tender, No distention. negative: Tenderness, Guarding, Rebound Skin: positive: Warm, Dry Extremities: positive: Full ROM, No pedal edema Neurologic/Psychiatric: positive: Oriented x3, Other (No focal motor deficits). negative: Disoriented to person, Disoriented to place, Disoriented to time - Lab Results Fish Bones: 10/28/19 05:48 10/28/19 05:48 Other Labs: Lab Results x24hrs 10/28/19 10/28/19 10/28/19 Range/Units 13:30 05:48 05:48 WBC (4.8-10.8) x10^3/uL RBC (4.20-5.40) 10^6/uL Hgb (12.0-16.0) g/dL Hct (37.0-47.0) % MCV (81.0-99.0) fL MCH (27.0-31.0) pg MCHC (32.0-36.0) g/dL RDW (12.0-15.0) % Plt Count (130-450) 10^3/uL MPV (7.9-10.8) fL Neut # (Auto) (1.5-6.6) 10^3/uL Lymph # (Auto) (1.5-3.5) 10^3/uL [place] # (Auto) (0.0-1.0) 10^3/uL Eos # (Auto) (0.0-0.7) 10^3/uL Baso # (Auto) (0.0-0.1) 10^3/uL Absolute Nucleated RBC x10^3/uL Band Neuts % (Manual) Abnorm Lymph % (Manual) Nucleated RBC % /100WBC Neutrophils # (Manual) Lymphocytes # (Manual) Monocytes # (Manual) Eosinophils # (Manual) Basophils # (Manual) Differential Comment Manual Slide Review Platelet Estimate (NORMAL) Platelet Morphology (NORMAL) RBC Morph Micro Appear (NORMAL) PT (9.9-12.6) secs INR (0.8-1.2) Bld Gas Analysis Time Sample Site ABG pH (7.35-7.45) ABG pCO2 (34-45) mmHg ABG pO2 (80-100) mmHg ABG HCO3 (22.0-26.0) mmol/L ABG Total CO2 (21.0-29.0) MMOL/L ABG O2 Saturation (94-98) % ABG Base Excess (-2.0-3.0) mmol/L Sandor Test VBG pH 7.416 H (7.31-7.41) Ionized Calcium 1.01 L (1.15-1.33) mmol/L Room Air Sodium (135-145) mmol/L Potassium (3.5-5.0) mmol/L Chloride (101-111) mmol/L Carbon Dioxide (21-32) mmol/L Anion Gap (6-13) BUN (6-20) mg/dL Creatinine (0.4-1.0) mg/dL Estimated GFR (MDRD) (>89) Glucose (70-100) mg/dL Glycated Hemoglobin 9.4 H (4.6-6.2) % Estim Average Glucose 223 H (70-100) Lactic Acid (0.5-2.2) mmol/L Calcium (8.5-10.3) mg/dL Total Bilirubin (0.2-1.0) mg/dL AST (10-42) IU/L ALT (10-60) IU/L Alkaline Phosphatase (42-121) IU/L Total Creatine Kinase (22-269) IU/L Troponin I High Sens (2.3-14.8) ng/L Total Protein (6.7-8.2) g/dL Albumin (3.2-5.5) g/dL Globulin (2.1-4.2) g/dL Albumin/Globulin Ratio (1.0-2.2) Lipase (22-51) U/L TSH 1.02 (0.34-5.60) uIU/mL Urine Color Urine Clarity (CLEAR) Urine pH (5.0-7.5) PH Ur Specific [place] (1.002-1.030) Urine Protein (NEGATIVE) mg/dL Urine Glucose (UA) (NEGATIVE) mg/dL Urine Ketones (NEGATIVE) mg/dL Urine Occult Blood (NEGATIVE) Urine Nitrite (NEGATIVE) Urine Bilirubin (NEGATIVE) Urine Urobilinogen (NORMAL) E.U./dL Ur Leukocyte Esterase (NEGATIVE) Ur Microscopic Review Urine Culture Comments Nasal Screen MRSA (PCR) (NEGATIVE) Urine Opiates Screen (NEGATIVE) Ur Oxycodone Screen (NEGATIVE) Urine Methadone Screen (NEGATIVE) Ur Propoxyphene Screen (NEGATIVE) Ur Barbiturates Screen (NEGATIVE) Ur Tricyclics Screen (NEGATIVE) Ur Phencyclidine Scrn (NEGATIVE) Ur Amphetamine Screen (NEGATIVE) U Methamphetamines Scrn (NEGATIVE) U Benzodiazepines Scrn (NEGATIVE) Urine Cocaine Screen (NEGATIVE) U Cannabinoids Screen (NEGATIVE) Ethyl Alcohol mg/dL 10/28/19 10/28/19 10/28/19 Range/Units 05:48 05:48 05:48 WBC (4.8-10.8) x10^3/uL RBC (4.20-5.40) 10^6/uL Hgb (12.0-16.0) g/dL Hct (37.0-47.0) % MCV (81.0-99.0) fL MCH (27.0-31.0) pg MCHC (32.0-36.0) g/dL RDW (12.0-15.0) % Plt Count (130-450) 10^3/uL MPV (7.9-10.8) fL Neut # (Auto) (1.5-6.6) 10^3/uL Lymph # (Auto) (1.5-3.5) 10^3/uL [place] # (Auto) (0.0-1.0) 10^3/uL Eos # (Auto) (0.0-0.7) 10^3/uL Baso # (Auto) (0.0-0.1) 10^3/uL Absolute Nucleated RBC x10^3/uL Band Neuts % (Manual) Abnorm Lymph % (Manual) Nucleated RBC % /100WBC Neutrophils # (Manual) Lymphocytes # (Manual) Monocytes # (Manual) Eosinophils # (Manual) Basophils # (Manual) Differential Comment Manual Slide Review Platelet Estimate (NORMAL) Platelet Morphology (NORMAL) RBC Morph Micro Appear (NORMAL) PT 10.7 (9.9-12.6) secs INR 0.9 (0.8-1.2) Bld Gas Analysis Time Sample Site ABG pH (7.35-7.45) ABG pCO2 (34-45) mmHg ABG pO2 (80-100) mmHg ABG HCO3 (22.0-26.0) mmol/L ABG Total CO2 (21.0-29.0) MMOL/L ABG O2 Saturation (94-98) % ABG Base Excess (-2.0-3.0) mmol/L Sandor Test VBG pH (7.31-7.41) Ionized Calcium YES (1.15-1.33) mmol/L Room Air Sodium 135 (135-145) mmol/L Potassium 4.4 (3.5-5.0) mmol/L Chloride 103 (101-111) mmol/L Carbon Dioxide 26 (21-32) mmol/L Anion Gap 6.0 (6-13) BUN 12 (6-20) mg/dL Creatinine 0.7 (0.4-1.0) mg/dL Estimated GFR (MDRD) 88 L (>89) Glucose 129 H (70-100) mg/dL Glycated Hemoglobin (4.6-6.2) % Estim Average Glucose (70-100) Lactic Acid 1.2 (0.5-2.2) mmol/L Calcium 7.1 L (8.5-10.3) mg/dL Total Bilirubin 0.6 (0.2-1.0) mg/dL AST 34 (10-42) IU/L ALT 22 (10-60) IU/L Alkaline Phosphatase 650 H (42-121) IU/L Total Creatine Kinase (22-269) IU/L Troponin I High Sens (2.3-14.8) ng/L Total Protein 6.4 L (6.7-8.2) g/dL Albumin 1.9 L (3.2-5.5) g/dL Globulin 4.5 H (2.1-4.2) g/dL Albumin/Globulin Ratio 0.4 L (1.0-2.2) Lipase (22-51) U/L TSH (0.34-5.60) uIU/mL Urine Color Urine Clarity (CLEAR) Urine pH (5.0-7.5) PH Ur Specific [place] (1.002-1.030) Urine Protein (NEGATIVE) mg/dL Urine Glucose (UA) (NEGATIVE) mg/dL Urine Ketones (NEGATIVE) mg/dL Urine Occult Blood (NEGATIVE) Urine Nitrite (NEGATIVE) Urine Bilirubin (NEGATIVE) Urine Urobilinogen (NORMAL) E.U./dL Ur Leukocyte Esterase (NEGATIVE) Ur Microscopic Review Urine Culture Comments Nasal Screen MRSA (PCR) (NEGATIVE) Urine Opiates Screen (NEGATIVE) Ur Oxycodone Screen (NEGATIVE) Urine Methadone Screen (NEGATIVE) Ur Propoxyphene Screen (NEGATIVE) Ur Barbiturates Screen (NEGATIVE) Ur Tricyclics Screen (NEGATIVE) Ur Phencyclidine Scrn (NEGATIVE) Ur Amphetamine Screen (NEGATIVE) U Methamphetamines Scrn (NEGATIVE) U Benzodiazepines Scrn (NEGATIVE) Urine Cocaine Screen (NEGATIVE) U Cannabinoids Screen (NEGATIVE) Ethyl Alcohol mg/dL 10/28/19 10/27/19 10/27/19 Range/Units 05:48 20:20 19:55 WBC 8.1 (4.8-10.8) x10^3/uL RBC 3.10 L (4.20-5.40) 10^6/uL Hgb 8.5 L (12.0-16.0) g/dL Hct 26.0 L (37.0-47.0) % MCV 83.9 (81.0-99.0) fL MCH 27.4 (27.0-31.0) pg MCHC 32.7 (32.0-36.0) g/dL RDW 25.0 H (12.0-15.0) % Plt Count 390 (130-450) 10^3/uL MPV 10.3 (7.9-10.8) fL Neut # (Auto) 5.5 (1.5-6.6) 10^3/uL Lymph # (Auto) 2.0 (1.5-3.5) 10^3/uL [place] # (Auto) 0.5 (0.0-1.0) 10^3/uL Eos # (Auto) 0.0 (0.0-0.7) 10^3/uL Baso # (Auto) 0.0 (0.0-0.1) 10^3/uL Absolute Nucleated RBC 0.00 x10^3/uL Band Neuts % (Manual) Not Reportable Abnorm Lymph % (Manual) Not Reportable Nucleated RBC % 0.0 /100WBC Neutrophils # (Manual) Not Reportable Lymphocytes # (Manual) Not Reportable Monocytes # (Manual) Not Reportable Eosinophils # (Manual) Not Reportable Basophils # (Manual) Not Reportable Differential Comment MANUAL=AUTO DIFF Manual Slide Review Platelet Estimate NORMAL (130-450,000) (NORMAL) Platelet Morphology (NORMAL) RBC Morph Micro Appear 1+ TARGET CELLS (NORMAL) PT (9.9-12.6) secs INR (0.8-1.2) Bld Gas Analysis Time Sample Site ABG pH (7.35-7.45) ABG pCO2 (34-45) mmHg ABG pO2 (80-100) mmHg ABG HCO3 (22.0-26.0) mmol/L ABG Total CO2 (21.0-29.0) MMOL/L ABG O2 Saturation (94-98) % ABG Base Excess (-2.0-3.0) mmol/L Sandor Test VBG pH (7.31-7.41) Ionized Calcium (1.15-1.33) mmol/L Room Air Sodium 134 L (135-145) mmol/L Potassium 3.0 L (3.5-5.0) mmol/L Chloride 100 L (101-111) mmol/L Carbon Dioxide 27 (21-32) mmol/L Anion Gap 7.0 (6-13) BUN 14 (6-20) mg/dL Creatinine 0.6 (0.4-1.0) mg/dL Estimated GFR (MDRD) 105 (>89) Glucose 177 H (70-100) mg/dL Glycated Hemoglobin (4.6-6.2) % Estim Average Glucose (70-100) Lactic Acid (0.5-2.2) mmol/L Calcium 7.3 L (8.5-10.3) mg/dL Total Bilirubin 0.4 (0.2-1.0) mg/dL AST 29 (10-42) IU/L ALT 23 (10-60) IU/L Alkaline Phosphatase 690 H (42-121) IU/L Total Creatine Kinase 97 (22-269) IU/L Troponin I High Sens (2.3-14.8) ng/L Total Protein 7.4 (6.7-8.2) g/dL Albumin 2.2 L (3.2-5.5) g/dL Globulin 5.2 H (2.1-4.2) g/dL Albumin/Globulin Ratio 0.4 L (1.0-2.2) Lipase 13 L (22-51) U/L TSH (0.34-5.60) uIU/mL Urine Color Urine Clarity (CLEAR) Urine pH (5.0-7.5) PH Ur Specific [place] (1.002-1.030) Urine Protein (NEGATIVE) mg/dL Urine Glucose (UA) (NEGATIVE) mg/dL Urine Ketones (NEGATIVE) mg/dL Urine Occult Blood (NEGATIVE) Urine Nitrite (NEGATIVE) Urine Bilirubin (NEGATIVE) Urine Urobilinogen (NORMAL) E.U./dL Ur Leukocyte Esterase (NEGATIVE) Ur Microscopic Review Urine Culture Comments Nasal Screen MRSA (PCR) NEGATIVE (NEGATIVE) Urine Opiates Screen (NEGATIVE) Ur Oxycodone Screen (NEGATIVE) Urine Methadone Screen (NEGATIVE) Ur Propoxyphene Screen (NEGATIVE) Ur Barbiturates Screen (NEGATIVE) Ur Tricyclics Screen (NEGATIVE) Ur Phencyclidine Scrn (NEGATIVE) Ur Amphetamine Screen (NEGATIVE) U Methamphetamines Scrn (NEGATIVE) U Benzodiazepines Scrn (NEGATIVE) Urine Cocaine Screen (NEGATIVE) U Cannabinoids Screen (NEGATIVE) Ethyl Alcohol < 5.0 mg/dL 10/27/19 10/27/19 10/27/19 Range/Units 19:50 19:50 19:18 WBC (4.8-10.8) x10^3/uL RBC (4.20-5.40) 10^6/uL Hgb (12.0-16.0) g/dL Hct (37.0-47.0) % MCV (81.0-99.0) fL MCH (27.0-31.0) pg MCHC (32.0-36.0) g/dL RDW (12.0-15.0) % Plt Count (130-450) 10^3/uL MPV (7.9-10.8) fL Neut # (Auto) (1.5-6.6) 10^3/uL Lymph # (Auto) (1.5-3.5) 10^3/uL [place] # (Auto) (0.0-1.0) 10^3/uL Eos # (Auto) (0.0-0.7) 10^3/uL Baso # (Auto) (0.0-0.1) 10^3/uL Absolute Nucleated RBC x10^3/uL Band Neuts % (Manual) Abnorm Lymph % (Manual) Nucleated RBC % /100WBC Neutrophils # (Manual) Lymphocytes # (Manual) Monocytes # (Manual) Eosinophils # (Manual) Basophils # (Manual) Differential Comment Manual Slide Review Platelet Estimate (NORMAL) Platelet Morphology (NORMAL) RBC Morph Micro Appear (NORMAL) PT 11.1 (9.9-12.6) secs INR 1.0 (0.8-1.2) Bld Gas Analysis Time Sample Site ABG pH (7.35-7.45) ABG pCO2 (34-45) mmHg ABG pO2 (80-100) mmHg ABG HCO3 (22.0-26.0) mmol/L ABG Total CO2 (21.0-29.0) MMOL/L ABG O2 Saturation (94-98) % ABG Base Excess (-2.0-3.0) mmol/L Sandor Test VBG pH (7.31-7.41) Ionized Calcium (1.15-1.33) mmol/L Room Air Sodium (135-145) mmol/L Potassium (3.5-5.0) mmol/L Chloride (101-111) mmol/L Carbon Dioxide (21-32) mmol/L Anion Gap (6-13) BUN (6-20) mg/dL Creatinine (0.4-1.0) mg/dL Estimated GFR (MDRD) (>89) Glucose (70-100) mg/dL Glycated Hemoglobin (4.6-6.2) % Estim Average Glucose (70-100) Lactic Acid (0.5-2.2) mmol/L Calcium (8.5-10.3) mg/dL Total Bilirubin (0.2-1.0) mg/dL AST (10-42) IU/L ALT (10-60) IU/L Alkaline Phosphatase (42-121) IU/L Total Creatine Kinase (22-269) IU/L Troponin I High Sens (2.3-14.8) ng/L Total Protein (6.7-8.2) g/dL Albumin (3.2-5.5) g/dL Globulin (2.1-4.2) g/dL Albumin/Globulin Ratio (1.0-2.2) Lipase (22-51) U/L TSH (0.34-5.60) uIU/mL Urine Color YELLOW Urine Clarity CLEAR (CLEAR) Urine pH 6.0 (5.0-7.5) PH Ur Specific [place] 1.010 (1.002-1.030) Urine Protein NEGATIVE (NEGATIVE) mg/dL Urine Glucose (UA) 500 H (NEGATIVE) mg/dL Urine Ketones NEGATIVE (NEGATIVE) mg/dL Urine Occult Blood NEGATIVE (NEGATIVE) Urine Nitrite NEGATIVE (NEGATIVE) Urine Bilirubin NEGATIVE (NEGATIVE) Urine Urobilinogen 0.2 (NORMAL) (NORMAL) E.U./dL Ur Leukocyte Esterase NEGATIVE (NEGATIVE) Ur Microscopic Review NOT INDICATED Urine Culture Comments NOT INDICATED Nasal Screen MRSA (PCR) (NEGATIVE) Urine Opiates Screen NEGATIVE (NEGATIVE) Ur Oxycodone Screen POSITIVE H (NEGATIVE) Urine Methadone Screen NEGATIVE (NEGATIVE) Ur Propoxyphene Screen NEGATIVE (NEGATIVE) Ur Barbiturates Screen NEGATIVE (NEGATIVE) Ur Tricyclics Screen NEGATIVE (NEGATIVE) Ur Phencyclidine Scrn NEGATIVE (NEGATIVE) Ur Amphetamine Screen NEGATIVE (NEGATIVE) U Methamphetamines Scrn NEGATIVE (NEGATIVE) U Benzodiazepines Scrn NEGATIVE (NEGATIVE) Urine Cocaine Screen NEGATIVE (NEGATIVE) U Cannabinoids Screen POSITIVE H (NEGATIVE) Ethyl Alcohol mg/dL 10/27/19 10/27/19 10/27/19 Range/Units 19:18 19:18 19:18 WBC 10.6 (4.8-10.8) x10^3/uL RBC 3.84 L (4.20-5.40) 10^6/uL Hgb 10.7 L (12.0-16.0) g/dL Hct 32.9 L (37.0-47.0) % MCV 85.7 (81.0-99.0) fL MCH 27.9 (27.0-31.0) pg MCHC 32.5 (32.0-36.0) g/dL RDW 25.1 H (12.0-15.0) % Plt Count 492 H (130-450) 10^3/uL MPV 11.1 H (7.9-10.8) fL Neut # (Auto) 7.7 H (1.5-6.6) 10^3/uL Lymph # (Auto) 2.3 (1.5-3.5) 10^3/uL [place] # (Auto) 0.5 (0.0-1.0) 10^3/uL Eos # (Auto) 0.0 (0.0-0.7) 10^3/uL Baso # (Auto) 0.0 (0.0-0.1) 10^3/uL Absolute Nucleated RBC 0.00 x10^3/uL Band Neuts % (Manual) Abnorm Lymph % (Manual) Nucleated RBC % 0.0 /100WBC Neutrophils # (Manual) Lymphocytes # (Manual) Monocytes # (Manual) Eosinophils # (Manual) Basophils # (Manual) Differential Comment Manual Slide Review Indicated Platelet Estimate INCREASED (>450,000) (NORMAL) Platelet Morphology NORMAL APPEARANCE (NORMAL) RBC Morph Micro Appear 1+ HYPOCHROMASIA (NORMAL) PT (9.9-12.6) secs INR (0.8-1.2) Bld Gas Analysis Time Sample Site ABG pH (7.35-7.45) ABG pCO2 (34-45) mmHg ABG pO2 (80-100) mmHg ABG HCO3 (22.0-26.0) mmol/L ABG Total CO2 (21.0-29.0) MMOL/L ABG O2 Saturation (94-98) % ABG Base Excess (-2.0-3.0) mmol/L Sandor Test VBG pH (7.31-7.41) Ionized Calcium (1.15-1.33) mmol/L Room Air Sodium (135-145) mmol/L Potassium (3.5-5.0) mmol/L Chloride (101-111) mmol/L Carbon Dioxide (21-32) mmol/L Anion Gap (6-13) BUN (6-20) mg/dL Creatinine (0.4-1.0) mg/dL Estimated GFR (MDRD) (>89) Glucose (70-100) mg/dL Glycated Hemoglobin (4.6-6.2) % Estim Average Glucose (70-100) Lactic Acid 2.5 H (0.5-2.2) mmol/L Calcium (8.5-10.3) mg/dL Total Bilirubin (0.2-1.0) mg/dL AST (10-42) IU/L ALT (10-60) IU/L Alkaline Phosphatase (42-121) IU/L Total Creatine Kinase (22-269) IU/L Troponin I High Sens 3.2 (2.3-14.8) ng/L Total Protein (6.7-8.2) g/dL Albumin (3.2-5.5) g/dL Globulin (2.1-4.2) g/dL Albumin/Globulin Ratio (1.0-2.2) Lipase (22-51) U/L TSH (0.34-5.60) uIU/mL Urine Color Urine Clarity (CLEAR) Urine pH (5.0-7.5) PH Ur Specific [place] (1.002-1.030) Urine Protein (NEGATIVE) mg/dL Urine Glucose (UA) (NEGATIVE) mg/dL Urine Ketones (NEGATIVE) mg/dL Urine Occult Blood (NEGATIVE) Urine Nitrite (NEGATIVE) Urine Bilirubin (NEGATIVE) Urine Urobilinogen (NORMAL) E.U./dL Ur Leukocyte Esterase (NEGATIVE) Ur Microscopic Review Urine Culture Comments Nasal Screen MRSA (PCR) (NEGATIVE) Urine Opiates Screen (NEGATIVE) Ur Oxycodone Screen (NEGATIVE) Urine Methadone Screen (NEGATIVE) Ur Propoxyphene Screen (NEGATIVE) Ur Barbiturates Screen (NEGATIVE) Ur Tricyclics Screen (NEGATIVE) Ur Phencyclidine Scrn (NEGATIVE) Ur Amphetamine Screen (NEGATIVE) U Methamphetamines Scrn (NEGATIVE) U Benzodiazepines Scrn (NEGATIVE) Urine Cocaine Screen (NEGATIVE) U Cannabinoids Screen (NEGATIVE) Ethyl Alcohol mg/dL 10/27/19 Range/Units 19:16 WBC (4.8-10.8) x10^3/uL RBC (4.20-5.40) 10^6/uL Hgb (12.0-16.0) g/dL Hct (37.0-47.0) % MCV (81.0-99.0) fL MCH (27.0-31.0) pg MCHC (32.0-36.0) g/dL RDW (12.0-15.0) % Plt Count (130-450) 10^3/uL MPV (7.9-10.8) fL Neut # (Auto) (1.5-6.6) 10^3/uL Lymph # (Auto) (1.5-3.5) 10^3/uL [place] # (Auto) (0.0-1.0) 10^3/uL Eos # (Auto) (0.0-0.7) 10^3/uL Baso # (Auto) (0.0-0.1) 10^3/uL Absolute Nucleated RBC x10^3/uL Band Neuts % (Manual) Abnorm Lymph % (Manual) Nucleated RBC % /100WBC Neutrophils # (Manual) Lymphocytes # (Manual) Monocytes # (Manual) Eosinophils # (Manual) Basophils # (Manual) Differential Comment Manual Slide Review Platelet Estimate (NORMAL) Platelet Morphology (NORMAL) RBC Morph Micro Appear (NORMAL) PT (9.9-12.6) secs INR (0.8-1.2) Bld Gas Analysis Time 192 Sample Site LEFT RADIAL ABG pH 7.36 (7.35-7.45) ABG pCO2 47 H (34-45) mmHg ABG pO2 84 (80-100) mmHg ABG HCO3 26.1 H (22.0-26.0) mmol/L ABG Total CO2 27.6 (21.0-29.0) MMOL/L ABG O2 Saturation 96 (94-98) % ABG Base Excess 0.3 (-2.0-3.0) mmol/L Sandor Test POSITIVE VBG pH (7.31-7.41) Ionized Calcium (1.15-1.33) mmol/L Room Air YES Sodium (135-145) mmol/L Potassium (3.5-5.0) mmol/L Chloride (101-111) mmol/L Carbon Dioxide (21-32) mmol/L Anion Gap (6-13) BUN (6-20) mg/dL Creatinine (0.4-1.0) mg/dL Estimated GFR (MDRD) (>89) Glucose (70-100) mg/dL Glycated Hemoglobin (4.6-6.2) % Estim Average Glucose (70-100) Lactic Acid (0.5-2.2) mmol/L Calcium (8.5-10.3) mg/dL Total Bilirubin (0.2-1.0) mg/dL AST (10-42) IU/L ALT (10-60) IU/L Alkaline Phosphatase (42-121) IU/L Total Creatine Kinase (22-269) IU/L Troponin I High Sens (2.3-14.8) ng/L Total Protein (6.7-8.2) g/dL Albumin (3.2-5.5) g/dL Globulin (2.1-4.2) g/dL Albumin/Globulin Ratio (1.0-2.2) Lipase (22-51) U/L TSH (0.34-5.60) uIU/mL Urine Color Urine Clarity (CLEAR) Urine pH (5.0-7.5) PH Ur Specific [place] (1.002-1.030) Urine Protein (NEGATIVE) mg/dL Urine Glucose (UA) (NEGATIVE) mg/dL Urine Ketones (NEGATIVE) mg/dL Urine Occult Blood (NEGATIVE) Urine Nitrite (NEGATIVE) Urine Bilirubin (NEGATIVE) Urine Urobilinogen (NORMAL) E.U./dL Ur Leukocyte Esterase (NEGATIVE) Ur Microscopic Review Urine Culture Comments Nasal Screen MRSA (PCR) (NEGATIVE) Urine Opiates Screen (NEGATIVE) Ur Oxycodone Screen (NEGATIVE) Urine Methadone Screen (NEGATIVE) Ur Propoxyphene Screen (NEGATIVE) Ur Barbiturates Screen (NEGATIVE) Ur Tricyclics Screen (NEGATIVE) Ur Phencyclidine Scrn (NEGATIVE) Ur Amphetamine Screen (NEGATIVE) U Methamphetamines Scrn (NEGATIVE) U Benzodiazepines Scrn (NEGATIVE) Urine Cocaine Screen (NEGATIVE) U Cannabinoids Screen (NEGATIVE) Ethyl Alcohol mg/dL ABX Reporting Has patient been on IV antibiotics over the past 48 hours?: No Assessment/Plan - Problem List (1) Hypothermia Impression: She is no longer hypothermic. This is likely secondary to hypoglycemia. Temperatures remained stable without the jammie hugger. TSH within normal limits. Continue to observe her temperature. Qualifiers: Encounter type: initial encounter Qualified Code(s): T68.XXXA - Hypothermia, initial encounter (2) Hypoglycemia Impression: Glycemia has resolved. She is adamant that she did not take extra of her Lantus that she only took her lispro. Blood sugars have remained in the 100s on her home regimen. We will continue home insulin regimen and a carb controlled diet. Continue to monitor her blood glucose. (3) Bradycardia Impression: This was secondary to the hypothermia and has resolved. She has been in a sinus rhythm with heart rates in the 60s to 70s. Continue to monitor. (4) Opioid dependence Impression: On chronic opioids for her abdominal pain secondary to chronic pancreatitis. We will continue her home oxycodone 20 mg twice daily. (5) Diabetes mellitus type 2 in nonobese Impression: Blood glucose has remained stable without any further episodes of hypoglycemia. Her A1c was 9.4%. We will continue home insulin regimen. (6) GERD (gastroesophageal reflux disease) Impression: Stable. Continue Protonix. (7) Hypokalemia Impression: This has resolved. Monitor while hospitalized (8) Moderate protein-calorie malnutrition Impression: She meets criteria for moderate protein calorie nutrition per [facility]. Encourage oral intake. Nutrition consult.
[2019-10-28] MEDS: ACETAMINOPHEN 325 MG TABLET PO PRN (20:09)
[2019-10-28] MEDS ORDERED: INSULIN GLARGINE 300 UNIT/3 ML PEN SUBQ SCH (21:00)
[2019-10-28] MEDS: ATORVASTATIN 10 MG TABLET PO SCH (21:14)
[2019-10-29] MEDS ORDERED: DEXTROSE GEL 37.5 GM TUBE ONE (04:25)
[2019-10-29] MEDS ORDERED: DEXTROSE 10% 250 ML IV ONE (04:30)
[2019-10-29 05:03] LABS: HGB - HEMOGLOBIN 10.7 g/dL (12.0-16.0); MEAN CORPUSCULAR HEMOGLOBIN 27.4 pg (27.0-31.0); MEAN CORPUSCULAR HGB CONC 32.8 g/dL (32.0-36.0); MEAN CORPUSCULAR VOLUME 83.4 fL (81.0-99.0); MEAN PLATELET VOLUME 11.2 fL (7.9-10.8); RED BLOOD COUNT 3.91 10^6/uL (4.20-5.40); RED CELL DISTRIBUTION WIDTH 25.5 % (12.0-15.0); WHITE BLOOD COUNT 9.1 x10^3/uL (4.8-10.8)
[2019-10-29 05:17] LABS: CALCIUM 8.3 mg/dL (8.5-10.3); CREATININE 0.8 mg/dL (0.4-1.0)
[2019-10-29] MEDS: ACETAMINOPHEN 325 MG TABLET PO PRN ×2 (05:19→20:04)
[2019-10-29] MEDS: NS W/20 MEQ KCL 1,000 ML IV SCH ×2 (05:45→16:02)
[2019-10-29] MEDS ORDERED: MORPHINE 2 MG/ML CARPUJECT ONE (05:45)
[2019-10-29] MEDS: SODIUM CHLORIDE FLUSH 0.9% 10 ML SYRINGE IVP SCH ×3 (05:45→17:00)
[2019-10-29] MEDS: GABAPENTIN 100 MG CAPSULE PO SCH (06:11)
[2019-10-29] MEDS ORDERED: MORPHINE 2 MG/ML CARPUJECT IVP STA (06:53)
[2019-10-29] MEDS: PANTOPRAZOLE 40 MG TABLET PO SCH (07:03)
--- NOTE | 2019-10-29 07:10 | PROVIDER PROGRESS NOTE ---
Subjective - Prog Note Date Prog Note Date: 10/29/19 - Subjective Subjective: She was hypoglycemic overnight with a blood glucose of 11 at approximately 4 AM in the morning. She was altered at that time and also hypothermic. She was placed on a bairr hugger and given oral glucose. Lost IV access and a new IV had to be placed and she was eventually given D10. Blood glucose improved to 93 at 5 a.m. Repeat blood glucose this morning is down to 68 again Current Medications - Current Medications Current Medications: Active Medications Acetaminophen (Tylenol) 650 mg PO Q4HR PRN PRN Reason: Pain 1 to 4 Last Admin: 10/29/19 05:19 Dose: 650 mg Atorvastatin Calcium (Lipitor) 20 mg PO QPM [facility] Last Admin: 10/28/19 21:14 Dose: 20 mg Enoxaparin Sodium (Lovenox) 40 mg SUBQ DAILY [facility] Last Admin: 10/28/19 08:55 Dose: 40 mg Gabapentin (Neurontin) 600 mg PO TID [facility] Potassium Chloride/Sodium Chloride (Normal Saline 0.9% W/20 Meq Kcl) 1,000 mls @ 100 mls/hr IV .Q10H [facility] Last Admin: 10/29/19 05:45 Dose: Not Given Multivitamins 10 ml/ Thiamine HCl 100 mg/ Folic Acid 1 mg/Sodium Chloride 1,011.2 mls @ 100 mls/hr IV DAILY [facility] Last Infusion: 10/28/19 14:30 Dose: Infused Ibuprofen (Motrin) 600 mg PO Q6HR PRN PRN Reason: Pain 1 to 4 Insulin Glargine (Lantus Solostar) 7 unit SUBQ QPM [facility] Metoclopramide HCl (Reglan) 10 mg PO Q6H PRN PRN Reason: nausea or headache Ondansetron HCl (Zofran Inj) 4 mg IVP Q6HR PRN PRN Reason: Nausea / Vomiting Ondansetron HCl (Zofran Odt) 4 mg TL Q6HR PRN PRN Reason: Nausea / Vomiting Oxycodone HCl (Oxycontin) 20 mg PO BID [facility] Last Admin: 10/28/19 21:14 Dose: 20 mg Pantoprazole Sodium (Protonix) 40 mg PO QDAC [facility] Last Admin: 10/29/19 07:03 Dose: 40 mg Multivit/Folic Acid/Iron (Trinatal Rx 1) 1 tab PO DAILY [facility] Last Admin: 10/28/19 08:36 Dose: 1 tab Prochlorperazine Edisylate (Compazine Inj) 10 mg IVP Q6HR PRN PRN Reason: Nausea / Vomiting Sodium Chloride (Normal Saline Flush 0.9%) 10 ml IVP PRN PRN PRN Reason: NEEDED PER PROVIDER ORDERS Sodium Chloride (Normal Saline Flush 0.9%) 10 ml IVP 0100,0900,1700 [facility] Last Admin: 10/29/19 05:45 Dose: Not Given Omeprazole 40 mg PO DAILY 08/12/18 Fluticasone Propion/Salmeterol [Wixela 100-50 Inhub] 1 puffs INH BID 10/28/19 Furosemide 40 mg PO DAILY 10/28/19 Gabapentin 600 mg PO TID 10/28/19 Insulin Glargine [Lantus Solostar] 12 units SUBQ QPM 10/28/19 Insulin Lispro [Humalog Kwikpen U-100] 5 units SUBQ AC 10/28/19 Oxycodone HCl [Oxycontin] 20 mg PO BID 10/28/19 allopurinoL [Allopurinol] 100 mg PO DAILY 10/28/19 Objective - Vital Signs/Intake & Output Reviewed Vital Signs: Yes Vital Signs: Vital Signs x48h Temp Pulse Resp BP Pulse Ox 10/29/19 06:14 35.7 C L 51 L 10 L 128/75 94 10/29/19 05:30 35.6 C L 10/29/19 00:58 36.5 C 68 13 141/75 H 94 Intake & Output: Intake & Output 10/26/19 10/27/19 10/28/19 10/29/19 23:59 23:59 23:59 23:59 Intake Total 1165.2 3182.200 Output Total 1400 550 Balance 1165.2 1782.200 -550 - Objective General Appearance: positive: No acute distress, Alert Eyes Bilateral: positive: Normal inspection, Conjunctivae nml ENT: positive: ENT inspection nml Neck: positive: Nml inspection Respiratory: positive: No respiratory distress. negative: Wheezes, Rales Cardiovascular: positive: Regular rate & rhythm, No murmur. negative: Tachycardia Abdomen: positive: Non-tender, No distention. negative: Tenderness Skin: positive: Warm, Dry Extremities: positive: Full ROM, No pedal edema Neurologic/Psychiatric: positive: Oriented x3, Other (No focal motor deficits on exam.). negative: Disoriented to person, Disoriented to place, Disoriented to time - Lab Results Fish Bones: 10/29/19 04:15 10/29/19 04:15 Other Labs: Lab Results x24hrs 10/29/19 10/29/19 10/28/19 Range/Units 04:15 04:15 13:30 WBC 9.1 (4.8-10.8) x10^3/uL RBC 3.91 L (4.20-5.40) 10^6/uL Hgb 10.7 L (12.0-16.0) g/dL Hct 32.6 L (37.0-47.0) % MCV 83.4 (81.0-99.0) fL MCH 27.4 (27.0-31.0) pg MCHC 32.8 (32.0-36.0) g/dL RDW 25.5 H (12.0-15.0) % Plt Count 438 (130-450) 10^3/uL MPV 11.2 H (7.9-10.8) fL Sodium 134 L (135-145) mmol/L Potassium 4.1 (3.5-5.0) mmol/L Chloride 103 (101-111) mmol/L Carbon Dioxide 23 (21-32) mmol/L Anion Gap 8.0 (6-13) BUN 15 (6-20) mg/dL Creatinine 0.8 (0.4-1.0) mg/dL Estimated GFR (MDRD) 75 L (>89) Glucose 20 L* (70-100) mg/dL Calcium 8.3 L (8.5-10.3) mg/dL TSH 1.02 (0.34-5.60) uIU/mL ABX Reporting Has patient been on IV antibiotics over the past 48 hours?: No Assessment/Plan - Problem List (1) Hypoglycemia Impression: She had recurrent hypoglycemia overnight after she received 10 units of Lantus in the evening and 2 units of NovoLog for sliding scale. Blood glucose was as low as 11 and she was altered. She is still hypoglycemic this morning with a blood glucose of 68. She did see monitored for another 24 hours given her recurrent hypoglycemia. We will decrease her Lantus to 7 units this evening and discontinue her NovoLog sliding scale. Her A1c was 9.4% so her diabetes is poorly controlled and given her chronic pancreatitis, she does require insulin therapy. We will monitor her blood glucose every 2 hours. (2) Hypothermia Impression: She was hypothermic again overnight and this was likely again due to her hypoglycemia. It is interesting that she became hypothermic as usually you would expect her to have been hypoglycemic for quite some time and she very well may have been before it was detected. She is now on a jammie hugger again. TSH was checked yesterday and was within normal limits. We will continue with the jammie hugger and continue to treat her diabetes. The underlying treatment will be to prevent further episodes of hypoglycemia. Qualifiers: Encounter type: initial encounter Qualified Code(s): T68.XXXA - Hypothermia, initial encounter (3) Opioid dependence Impression: She is on chronic opiates for chronic pancreatitis. Pain has been controlled with oral oxycodone. We will continue her home dose of 20 mg twice daily. (4) Diabetes mellitus type 2 in nonobese Impression: Her blood sugars have been labile during his hospitalization. She was hypothermic overnight as mentioned above. We will decrease her Lantus dose and discontinue sliding scale. If her blood sugars are stable for the day, will c onsider starting her on 2 units of NovoLog with meals. If her blood glucose stable overnight and through the morning tomorrow. We will likely discharge her on 7 units of Lantus and 2 units of NovoLog with meals. (5) GERD (gastroesophageal reflux disease) Impression: Stable. Continue Protonix. (6) Moderate protein-calorie malnutrition Impression: She meets criteria for moderate protein calorie nutrition per [facility]. Encourage oral intake. Nutrition consult. (7) Bradycardia Impression: She was initially bradycardic secondary to the hypothermia. She remains in sinus rhythm. This has resolved. (8) Hypokalemia Impression: Resolved.
[2019-10-29] MEDS ORDERED: DEXTROSE 10% 250 ML IV STA (08:17)
[2019-10-29] MEDS: oxyCODONE ER 10 MG TABLET PO SCH ×2 (08:45→20:04)
[2019-10-29] MEDS: FOLIC ACID 1 MG TABLET PO SCH (08:45)
[2019-10-29] MEDS: MULTIVITAMIN TABLET PO SCH (08:45)
[2019-10-29] MEDS: PRENATAL VITAMIN TABLET PO SCH (08:46)
[2019-10-29] MEDS: THIAMINE 100 MG TABLET PO SCH (08:46)
[2019-10-29] MEDS: ENOXAPARIN 40 MG/0.4 ML SYRINGE SUBQ SCH (08:48)
[2019-10-29] MEDS: GABAPENTIN 300 MG CAPSULE PO SCH ×2 (14:12→21:12)
[2019-10-29] MEDS ORDERED: INSULIN ASPART 300 UNIT/3 ML PEN SUBQ SCH (17:00)
[2019-10-29] MEDS: ATORVASTATIN 10 MG TABLET PO SCH (20:04)
[2019-10-29] MEDS ORDERED: INSULIN GLARGINE 300 UNIT/3 ML PEN SUBQ SCH (21:00)
[2019-10-30] MEDS: SODIUM CHLORIDE FLUSH 0.9% 10 ML SYRINGE IVP SCH ×4 (01:16→23:40)
[2019-10-30] MEDS ORDERED: DEXTROSE 50% ABBOJECT 25 GM/50 ML SYRINGE IVP ONE (03:51)
[2019-10-30 05:13] LABS: HGB - HEMOGLOBIN 9.3 g/dL (12.0-16.0); MEAN CORPUSCULAR HEMOGLOBIN 27.8 pg (27.0-31.0); MEAN CORPUSCULAR HGB CONC 33.3 g/dL (32.0-36.0); MEAN CORPUSCULAR VOLUME 83.5 fL (81.0-99.0); MEAN PLATELET VOLUME 11.2 fL (7.9-10.8); RED BLOOD COUNT 3.34 10^6/uL (4.20-5.40); RED CELL DISTRIBUTION WIDTH 24.4 % (12.0-15.0); WHITE BLOOD COUNT 7.9 x10^3/uL (4.8-10.8)
[2019-10-30 05:23] LABS: CALCIUM 7.6 mg/dL (8.5-10.3); CREATININE 0.7 mg/dL (0.4-1.0); MAGNESIUM 1.5 mg/dL (1.7-2.8); PHOSPHORUS 2.6 mg/dL (2.5-4.6)
[2019-10-30] MEDS: GABAPENTIN 300 MG CAPSULE PO SCH ×3 (06:11→20:11)
[2019-10-30] MEDS: PANTOPRAZOLE 40 MG TABLET PO SCH (06:11)
--- NOTE | 2019-10-30 07:29 | PROVIDER PROGRESS NOTE ---
Subjective - Prog Note Date Prog Note Date: 10/30/19 - Subjective Subjective: He is once again hypoglycemic overnight with a blood glucose was 17. He was awake during the episode and was talking but felt diaphoretic and shaky. She received dextrose with improvement in her blood sugars. She did receive Lantus 7 units yesterday evening. She reports no chest pain or dyspnea. States her abdominal pain is present but controlled with oxycodone. Current Medications - Current Medications Current Medications: Active Medications Acetaminophen (Tylenol) 650 mg PO Q4HR PRN PRN Reason: Pain 1 to 4 Last Admin: 10/29/19 20:04 Dose: 650 mg Atorvastatin Calcium (Lipitor) 20 mg PO QPM [facility] Last Admin: 10/29/19 20:04 Dose: 20 mg Enoxaparin Sodium (Lovenox) 40 mg SUBQ DAILY [facility] Last Admin: 10/30/19 08:50 Dose: 40 mg Folic Acid () 1 mg PO DAILY [facility] Last Admin: 10/30/19 08:49 Dose: 1 mg Gabapentin (Neurontin) 600 mg PO TID [facility] Last Admin: 10/30/19 06:11 Dose: 600 mg Ibuprofen (Motrin) 600 mg PO Q6HR PRN PRN Reason: Pain 1 to 4 Insulin Glargine (Lantus Solostar) 5 unit SUBQ DAILY [facility] Last Admin: 10/30/19 08:54 Dose: 5 unit Magnesium Oxide (Mag Ox) 400 mg PO DAILYWM [facility] Last Admin: 10/30/19 08:48 Dose: 400 mg Metoclopramide HCl (Reglan) 10 mg PO Q6H PRN PRN Reason: nausea or headache Multivitamins (Theragran) 1 tab PO DAILYWM [facility] Last Admin: 10/30/19 08:48 Dose: 1 tab Ondansetron HCl (Zofran Inj) 4 mg IVP Q6HR PRN PRN Reason: Nausea / Vomiting Ondansetron HCl (Zofran Odt) 4 mg TL Q6HR PRN PRN Reason: Nausea / Vomiting Oxycodone HCl (Oxycontin) 20 mg PO BID [facility] Last Admin: 10/30/19 08:46 Dose: 20 mg Pantoprazole Sodium (Protonix) 40 mg PO QDAC [facility] Last Admin: 10/30/19 06:11 Dose: 40 mg Prochlorperazine Edisylate (Compazine Inj) 10 mg IVP Q6HR PRN PRN Reason: Nausea / Vomiting Sodium Chloride (Normal Saline Flush 0.9%) 10 ml IVP PRN PRN PRN Reason: NEEDED PER PROVIDER ORDERS Sodium Chloride (Normal Saline Flush 0.9%) 10 ml IVP 0100,0900,1700 [facility] Last Admin: 10/30/19 09:57 Dose: 10 ml Thiamine HCl (Vitamin B-1) 100 mg PO DAILY [facility] Last Admin: 10/30/19 08:49 Dose: 100 mg Omeprazole 40 mg PO DAILY 08/12/18 Fluticasone Propion/Salmeterol [Wixela 100-50 Inhub] 1 puffs INH BID 10/28/19 Furosemide 40 mg PO DAILY 10/28/19 Gabapentin 600 mg PO TID 10/28/19 Insulin Glargine [Lantus Solostar] 12 units SUBQ QPM 10/28/19 Insulin Lispro [Humalog Kwikpen U-100] 5 units SUBQ AC 10/28/19 Oxycodone HCl [Oxycontin] 20 mg PO BID 10/28/19 allopurinoL [Allopurinol] 100 mg PO DAILY 10/28/19 Objective - Vital Signs/Intake & Output Reviewed Vital Signs: Yes Vital Signs: Vital Signs x48h Temp Pulse Resp BP Pulse Ox 10/30/19 05:55 36.2 C L 10/30/19 04:13 35.7 C L 75 15 162/86 H 99 10/30/19 01:00 36.7 C 65 14 139/87 H 98 Intake & Output: Intake & Output 10/27/19 10/28/19 10/29/19 10/30/19 23:59 23:59 23:59 23:59 Intake Total 1165.2 3182.200 850 Output Total 1400 1850 Balance 1165.2 1782.200 -1000 - Objective General Appearance: positive: No acute distress, Alert Eyes Bilateral: positive: Normal inspection ENT: positive: ENT inspection nml Neck: positive: Nml inspection Respiratory: positive: No respiratory distress. negative: Wheezes, Rales Cardiovascular: positive: Regular rate & rhythm, No murmur. negative: Tachycardia, Bradycardia Abdomen: positive: No distention, Tenderness (Mild tenderness.). negative: Non- tender, Guarding, Rebound Skin: positive: Warm, Dry Extremities: positive: Full ROM, No pedal edema Neurologic/Psychiatric: positive: Oriented x3. negative: Disoriented to person, Disoriented to place, Disoriented to time - Lab Results Fish Bones: 10/30/19 04:49 10/30/19 10:17 Other Labs: Lab Results x24hrs 10/30/19 10/30/19 Range/Units 04:49 04:49 WBC 7.9 (4.8-10.8) x10^3/uL RBC 3.34 L (4.20-5.40) 10^6/uL Hgb 9.3 L (12.0-16.0) g/dL Hct 27.9 L (37.0-47.0) % MCV 83.5 (81.0-99.0) fL MCH 27.8 (27.0-31.0) pg MCHC 33.3 (32.0-36.0) g/dL RDW 24.4 H (12.0-15.0) % Plt Count 430 (130-450) 10^3/uL MPV 11.2 H (7.9-10.8) fL Sodium 127 L (135-145) mmol/L Potassium 3.7 (3.5-5.0) mmol/L Chloride 95 L (101-111) mmol/L Carbon Dioxide 24 (21-32) mmol/L Anion Gap 8.0 (6-13) BUN 15 (6-20) mg/dL Creatinine 0.7 (0.4-1.0) mg/dL Estimated GFR (MDRD) 88 L (>89) Glucose 211 H (70-100) mg/dL Calcium 7.6 L (8.5-10.3) mg/dL Phosphorus 2.6 (2.5-4.6) mg/dL Magnesium 1.5 L (1.7-2.8) mg/dL ABX Reporting Has patient been on IV antibiotics over the past 48 hours?: No Assessment/Plan - Problem List (1) Hypoglycemia Impression: She once again had another episode of hypoglycemia. She did receive 2 units of short acting with dinner but otherwise just received Lantus yesterday evening. Recurrent episodes of hypoglycemia are concerned especially given that they occur overnight and her blood glucose has been as low as 11. At this time, we will keep her hospitalized for further monitoring of her blood glucose. I will decrease her Lantus to 5 units administered in the morning that weight is not peak overnight and she does have hypoglycemia, will be observed during the day and not when she is asleep. I will discontinue her NovoLog with meals but if she becomes hyperglycemic again during the day like she was yesterday, we will place her back on 2 units of NovoLog with meals. We will continue to check her blood sugar every 2 hours. (2) Diabetes mellitus type 2 in nonobese Impression: I did review her records from [facility] when she was hospitalized for abdominal pain back in July. They did make note that she is a brittle diabetic at that time she was discharged on 12 units of Lantus and 6 units of lispro with meals. Her A1c this admission is 9.4% which improved from 15.2 back in April of last year. She has been difficult to control during this hospitalization as she has been hyperglycemic during the day I decreased her short acting and Lantus but she continues to have hypoglycemic events overnight with a blood glucose as low as 11. Given this, she is continued to be observed and our plan for her diabetes is as mentioned above for hypoglycemia. (3) Hypothermia Impression: This is secondary to hypoglycemia and her temperature has been stable on her blood glucoses within normal limits. TSH was also within normal limits. 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 She has required pancreatic stenting with the most recent stenting performed on October [address] Ford at [facility]. Adan pain is currently controlled and there is no evidence of pancreatitis or any complications from this procedure. She will continue outpatient follow-up. Qualifiers: Pancreatitis type: alcohol induced Qualified Code(s): K86.0 - Alcohol- induced chronic pancreatitis (5) Opioid dependence Impression: She is on oxycodone for chronic abdominal pain secondary to chronic pancr eatitis. We will continue her home dose of oxycodone 20 mg twice a day. (6) GERD (gastroesophageal reflux disease) Impression: Stable. Continue Protonix. (7) Moderate protein-calorie malnutrition Impression: Stable. Continue to encourage oral intake. Nutrition has been consulted. (8) Bradycardia Impression: This was secondary to her hypothermia and has resolved. (9) Hypokalemia Impression: This was present on admission has since resolved.
[2019-10-30] MEDS: oxyCODONE ER 10 MG TABLET PO SCH ×2 (08:46→20:11)
[2019-10-30] MEDS: MULTIVITAMIN TABLET PO SCH (08:48)
[2019-10-30] MEDS: MAGNESIUM OXIDE 400 MG TABLET PO SCH (08:48)
[2019-10-30] MEDS: THIAMINE 100 MG TABLET PO SCH (08:49)
[2019-10-30] MEDS: FOLIC ACID 1 MG TABLET PO SCH (08:49)
[2019-10-30] MEDS: ENOXAPARIN 40 MG/0.4 ML SYRINGE SUBQ SCH (08:50)
[2019-10-30] MEDS: INSULIN GLARGINE 300 UNIT/3 ML PEN SUBQ SCH (08:54)
[2019-10-30 10:28] LABS: CALCIUM 7.6 mg/dL (8.5-10.3); CREATININE 0.8 mg/dL (0.4-1.0)
[2019-10-30] MEDS: ATORVASTATIN 10 MG TABLET PO SCH (20:11)
[2019-10-31 05:43] LABS: HGB - HEMOGLOBIN 9.7 g/dL (12.0-16.0); MEAN PLATELET VOLUME 10.9 fL (7.9-10.8); RED BLOOD COUNT 3.46 10^6/uL (4.20-5.40); RED CELL DISTRIBUTION WIDTH 24.4 % (12.0-15.0); WHITE BLOOD COUNT 8.5 x10^3/uL (4.8-10.8)
[2019-10-31 05:51] LABS: BUN - BLOOD UREA NITROGEN 15 mg/dL (6-20); CALCIUM 7.8 mg/dL (8.5-10.3); CARBON DIOXIDE - CO2 26 mmol/L (21-32); CHLORIDE 100 mmol/L (101-111); CREATININE 0.8 mg/dL (0.4-1.0); GLUCOSE 159 mg/dL (70-100); SODIUM 132 mmol/L (135-145)
[2019-10-31 05:54] LABS: VBG PH 7.429 (7.31-7.41)
[2019-10-31] MEDS: GABAPENTIN 300 MG CAPSULE PO SCH (06:05)
[2019-10-31] MEDS: PANTOPRAZOLE 40 MG TABLET PO SCH (06:05)
[2019-10-31] MEDS: FOLIC ACID 1 MG TABLET PO SCH (08:25)
[2019-10-31] MEDS: THIAMINE 100 MG TABLET PO SCH (08:25)
[2019-10-31] MEDS: MULTIVITAMIN TABLET PO SCH (08:25)
[2019-10-31] MEDS: ENOXAPARIN 40 MG/0.4 ML SYRINGE SUBQ SCH (08:25)
[2019-10-31] MEDS: oxyCODONE ER 10 MG TABLET PO SCH (08:25)
[2019-10-31] MEDS: MAGNESIUM OXIDE 400 MG TABLET PO SCH (08:25)
[2019-10-31] MEDS: SODIUM CHLORIDE FLUSH 0.9% 10 ML SYRINGE IVP SCH (08:27)
[2019-10-31] MEDS: INSULIN GLARGINE 300 UNIT/3 ML PEN SUBQ SCH (08:27)
[2019-10-31 11:25] VITALS: BP 157/82
== END 2019-10-31 11:40 | disposition home or self-care (01) | DRG 638 ==
LOC: EDUNIT# → ED 18:57 → MS2 22:22 → ICU 23:36 → OBSVTOIN 10-30 09:44 → MS2 10-30 14:23
PROVIDERS: ADMIT Internal Medicine; ATTEND Internal Medicine
DX: E11.641 Type 2 diabetes mellitus with hypoglycemia with coma (principal); F11.20 Opioid dependence, uncomplicated; K86.0 Alcohol-induced chronic pancreatitis; E44.0 Moderate protein-calorie malnutrition; Z68.1 Body mass index [BMI] 19.9 or less, adult; R68.0 Hypothermia, not associated with low environmental temperature; T38.3X5A Adverse effect of insulin and oral hypoglycemic [antidiabetic] drugs, initial encounter; Y92.009 Unspecified place in unspecified non-institutional (private) residence as the place of occurrence of the external cause; E87.6 Hypokalemia; I10 Essential (primary) hypertension; G89.29 Other chronic pain; F41.9 Anxiety disorder, unspecified; F15.10 Other stimulant abuse, uncomplicated; F12.10 Cannabis abuse, uncomplicated; F17.210 Nicotine dependence, cigarettes, uncomplicated; K21.9 Gastro-esophageal reflux disease without esophagitis; M10.9 Gout, unspecified; Z96.649 Presence of unspecified artificial hip joint; Z79.4 Long term (current) use of insulin; Z96.89 Presence of other specified functional implants
CPT/HCPCS: 36415; 36600; 51701; 70450; 71045; 80048; 80053; 80306; 80320; 81003; 82330; 82550; 82803; 83036; 83605; 83690; 83735; 84100; 84443; 84484; 85025; 85027; 85610; 87040; 87150; 93005; 96365; 96366; 96367; 96368; 96372; 96375; 97161; 99285; A9270; G0378; J1650; J1815; J3411; J3490; 81001; 87086

== ENCOUNTER 2019-11-04 14:29 | Outpatient (CLI) | payer MEDICAID ==
[2019-11-04 17:58] LABS: BASOPHILS # (AUTO) 0.1 10^3/uL (0.0-0.1); BASOPHILS % (AUTO) 0.6 %; EOSINOPHILS % (AUTO) 0.1 %; HGB - HEMOGLOBIN 10.4 g/dL (12.0-16.0); LYMPHOCYTES # (AUTO) 1.5 10^3/uL (1.5-3.5); LYMPHOCYTES % (AUTO) 11.8 %; MEAN CORPUSCULAR HEMOGLOBIN 28.6 pg (27.0-31.0); MEAN CORPUSCULAR HGB CONC 32.6 g/dL (32.0-36.0); MEAN CORPUSCULAR VOLUME 87.6 fL (81.0-99.0); MEAN PLATELET VOLUME 11.2 fL (7.9-10.8); MONOCYTES # (AUTO) 0.4 10^3/uL (0.0-1.0); MONOCYTES % (AUTO) 3.3 %; NEUTROPHILS # (AUTO) 10.6 10^3/uL (1.5-6.6); NEUTROPHILS % (AUTO) 83.7 %; PLT - PLATELET COUNT 430 10^3/uL (130-450); RED BLOOD COUNT 3.64 10^6/uL (4.20-5.40); RED CELL DISTRIBUTION WIDTH 24.1 % (12.0-15.0); WHITE BLOOD COUNT 12.7 x10^3/uL (4.8-10.8)
[2019-11-04 18:16] LABS: ALBUMIN 2.4 g/dL (3.2-5.5); ALBUMIN/GLOBULIN RATIO 0.5 (1.0-2.2); BILIRUBIN,TOTAL 0.7 mg/dL (0.2-1.0); CALCIUM 7.8 mg/dL (8.5-10.3); CREATININE 0.8 mg/dL (0.4-1.0); TOTAL PROTEIN 7.6 g/dL (6.7-8.2)
[2019-11-04 18:28] LABS: PLATELET ESTIMATE, MANUAL NORMAL (130-450,000) (NORMAL); PLATELET MORPHOLOGY NORMAL APPEARANCE (NORMAL)
== END 2019-11-04 23:59 | disposition home or self-care (01) ==
LOC: LAB.WCP 14:29
PROVIDERS: ATTEND Family Medicine
DX: E11.40 Type 2 diabetes mellitus with diabetic neuropathy, unspecified (principal); Z79.4 Long term (current) use of insulin; R63.6 Underweight; K74.60 Unspecified cirrhosis of liver; K86.1 Other chronic pancreatitis; E11.649 Type 2 diabetes mellitus with hypoglycemia without coma; K86.81 Exocrine pancreatic insufficiency
CPT/HCPCS: 36415; 80050; 81599; 83525

== ENCOUNTER 2019-11-21 18:22 | Outpatient (CLI) | payer MEDICAID | END 2019-11-21 23:59 | disposition critical access hospital (66) | LOC: EMS 18:22 | PROVIDERS: ATTEND Surgery | DX: R10.11 Right upper quadrant pain (principal); R19.7 Diarrhea, unspecified | CPT/HCPCS: A0425; A0427; A0999 ==

== ENCOUNTER 2019-11-21 18:39 | Emergency (ER) | payer MEDICAID ==
[2019-11-21] MEDS ORDERED: SODIUM CHLORIDE 0.9% 1,000 ML IV STA ×3 (18:46→19:32)
[2019-11-21 19:05] LABS: MUDS CUTOFF CONCENTRATIONS CUTOFF CONC BELOW:
[2019-11-21 19:06] LABS: VBG BASE EXCESS 0.5 mmol/L (-2 - +2); VBG PCO2 43.5 mmHg (41-51); VBG PH 7.389 (7.31-7.41); VBG PO2 23.8 mmHg (25-47)
[2019-11-21 19:07] LABS: BASOPHILS # (AUTO) 0.1 10^3/uL (0.0-0.1); BASOPHILS % (AUTO) 0.8 %; EOSINOPHILS % (AUTO) 0.3 %; HGB - HEMOGLOBIN 11.2 g/dL (12.0-16.0); LYMPHOCYTES % (AUTO) 29.9 %; MEAN CORPUSCULAR HEMOGLOBIN 29.9 pg (27.0-31.0); MEAN CORPUSCULAR VOLUME 90.6 fL (81.0-99.0); MEAN PLATELET VOLUME 10.7 fL (7.9-10.8); MONOCYTES # (AUTO) 0.5 10^3/uL (0.0-1.0); MONOCYTES % (AUTO) 7.2 %; NEUTROPHILS # (AUTO) 4.1 10^3/uL (1.5-6.6); NEUTROPHILS % (AUTO) 61.6 %; PLT - PLATELET COUNT 463 10^3/uL (130-450); RED BLOOD COUNT 3.74 10^6/uL (4.20-5.40); RED CELL DISTRIBUTION WIDTH 21.7 % (12.0-15.0); WHITE BLOOD COUNT 6.6 x10^3/uL (4.8-10.8)
[2019-11-21 19:10] LABS: BILIRUBIN,URINE NEGATIVE (NEGATIVE); GLUCOSE, URINE (UA) >=1000 mg/dL (NEGATIVE); KETONES,URINE (UA) NEGATIVE (NEGATIVE); LEUKOCYTE ESTERASE, URINE NEGATIVE (NEGATIVE); NITRITE,URINE POSITIVE (NEGATIVE); OCCULT BLOOD,URINE NEGATIVE (NEGATIVE); PH,URINE 6.5 PH (5.0-7.5); PROTEIN,URINE NEGATIVE (NEGATIVE); UROBILINOGEN,URINE 0.2 (NORMAL) E.U./dL (NORMAL)
[2019-11-21 19:11] LABS: CLARITY,URINE HAZY (CLEAR)
[2019-11-21 19:21] LABS: KETONES, SERUM (ACETEST) NEGATIVE (NEGATIVE)
[2019-11-21 19:22] LABS: ALBUMIN/GLOBULIN RATIO 0.4 (1.0-2.2); ALKALINE PHOSPHATASE 351 IU/L (42-121); ALT ALANINE AMINOTRANSFERASE 15 IU/L (10-60); AST ASPARTATE AMINOTRANSFERASE 19 IU/L (10-42); BILIRUBIN,TOTAL 0.6 mg/dL (0.2-1.0); BUN - BLOOD UREA NITROGEN 9 mg/dL (6-20); CALCIUM 7.1 mg/dL (8.5-10.3); CARBON DIOXIDE - CO2 22 mmol/L (21-32); CHLORIDE 95 mmol/L (101-111); CREATININE 0.8 mg/dL (0.4-1.0); LIPASE 21 U/L (22-51); SODIUM 127 mmol/L (135-145); TOTAL PROTEIN 6.9 g/dL (6.7-8.2)
[2019-11-21 19:24] LABS: GLUCOSE 613 mg/dL (70-100)
[2019-11-21 19:28] LABS: AMPHETAMINE SCREEN,URINE POSITIVE (NEGATIVE); BACTERIA,URINE Many /HPF (None Seen); BENZODIAZEPINES SCREEN, URINE NEGATIVE (NEGATIVE); COCAINE SCREEN URINE NEGATIVE (NEGATIVE); METHAMPHETAMINES SCREEN, URINE NEGATIVE (NEGATIVE); OPIATE SCREEN, URINE NEGATIVE (NEGATIVE); RBC,URINE 0-5 /HPF (0-5); SQUAMOUS EPITHELIAL CELL,UR MANY Squamous (<= Few); TRICYCLIC ANTIDEPRESSANT,URINE NEGATIVE (NEGATIVE); WBC CLUMPS,URINE PRESENT
[2019-11-21 19:29] LABS: METHADONE SCREEN, URINE NEGATIVE (NEGATIVE); OXYCODONE SCREEN, URINE POSITIVE (NEGATIVE); PROPOXYPHENE SCREEN, URINE NEGATIVE (NEGATIVE)
[2019-11-21] MEDS ORDERED: INSULIN REGULAR HUMAN 100 UNIT/1 ML 10 ML MDV SUBQ STA (19:31)
[2019-11-21] MEDS ORDERED: INSULIN REGULAR HUMAN 100 UNIT/1 ML 10 ML MDV IVP STA (19:31)
[2019-11-21] MEDS ORDERED: KETOROLAC 30 MG/ML VIAL IVP STA (19:32)
[2019-11-21] MEDS ORDERED: cefTRIAXone 1 GM VIAL IVP STA (19:32)
[2019-11-21 19:46] LABS: PLATELET ESTIMATE, MANUAL INCREASED (>450,000) (NORMAL); PLATELET MORPHOLOGY NORMAL APPEARANCE (NORMAL)
--- NOTE | 2019-11-21 19:55 | ED Physician Documentation ---
History of Present Illness - Stated complaint Stated Complaint: ABD PX - Chief complaint Chief Complaint: Abd Pain - History obtained from History obtained from: Patient - History of Present Illness Timing: Today Pain level max: 8 Pain level now: 8 - Additonal information Additional information: 54-year-old female with a longstanding history of chronic pancreatitis and gallstones. She states that she developed abdominal pain today while in senior care. States she has been in senior care for the past 3 days. She states she is off all of her diabetic medications as well. Has had nausea and some vomiting today. Nothing makes it better or worse. No fevers. No cough. No diarrhea. No constipation. Denies any alcohol use. 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 : None HEENT: Other Psych: Depression Musculoskeletal: Gout Derm: Other - Past Surgical History Past Surgical History: Yes General: Splenectomy Ortho: Hip replacement, Rotator cuff repair, Other - Present Medications Home Medications: Ambulatory Orders Medication Instructions Recorded Confirmed Omeprazole 40 mg PO DAILY 08/12/18 11/21/19 Gabapentin 600 mg PO TID 10/28/19 11/21/19 Oxycodone HCl [Oxycontin] 20 mg PO BID 10/28/19 11/21/19 allopurinoL [Allopurinol] 100 mg PO DAILY 10/28/19 11/21/19 Metformin HCl 500 mg PO BID #60 tablet 11/21/19 - Allergies Allergies/Adverse Reactions: Allergies Allergy/AdvReac Type Severity Reaction Status Date / Time No Known Drug Allergies Allergy Verified 11/21/19 18:56 - Social History Does the pt smoke?: Yes Smoking Status: Current every day smoker Does the pt drink ETOH?: No Does the pt have substance abuse?: Yes - Immunizations Immunizations are current?: Yes Immunizations: TDAP >10years/unknown - POLST Patient has POLST: No POLST Status: Full Code PD ED PE NORMAL - Vitals Vital signs reviewed: Yes - General General: Alert and oriented X 3, No acute distress, Other (Thin female) - HEENT HEENT: PERRL, Moist mucous membranes - Neck Neck: Supple, no meningeal sign - Cardiac Cardiac: RRR, Strong equal pulses - Respiratory Respiratory: No respiratory distress, Clear bilaterally - Abdomen Abdomen: Soft, Non distended, Other (Tender to palpation epigastric and right upper quadrant. No peritoneal signs. Negative Ward sign.) - Derm Derm: Warm and dry - Extremities Extremities: No edema, No calf tenderness / cord - Neuro Neuro: Alert and oriented X 3 - Psych Psych: Normal mood, Normal affect Results - Vitals Vitals: Vital Signs - 24 hr 11/21/19 11/21/19 11/21/19 18:40 19:00 19:15 Temperature 36.8 C 36.8 C Heart Rate 56 L 62 69 Respiratory 18 17 16 Rate Blood Pressure 174/92 H 157/94 H 157/94 H O2 Saturation 100 100 100 11/21/19 11/21/19 11/21/19 20:16 21:04 22:21 Temperature Heart Rate 54 L 52 L 63 Respiratory 15 16 16 Rate Blood Pressure 150/82 H 163/88 H 143/81 H O2 Saturation 100 100 100 11/21/19 22:49 Temperature 36.7 C Heart Rate 60 Respiratory 16 Rate Blood Pressure 143/82 H O2 Saturation 97 Oxygen O2 Source Room air - Labs Labs: Laboratory Tests 11/21/19 11/21/19 11/21/19 19:00 19:00 19:00 WBC 6.6 RBC 3.74 L Hgb 11.2 L Hct 33.9 L MCV 90.6 MCH 29.9 MCHC 33.0 RDW 21.7 H Plt Count 463 H MPV 10.7 Neut # (Auto) 4.1 Lymph # (Auto) 2.0 [place] # (Auto) 0.5 Eos # (Auto) 0.0 Baso # (Auto) 0.1 Absolute Nucleated RBC 0.00 Nucleated RBC % 0.0 Manual Slide Review Indicated Platelet Estimate INCREASED (>450,000) Platelet Morphology NORMAL APPEARANCE RBC Morph Micro Appear 1+ HYPOCHROMASIA VBG pH 7.389 VBG pCO2 43.5 VBG pO2 23.8 L VBG HCO3 25.7 VBG Total CO2 27.0 VBG O2 Saturation 41.6 L VBG Base Excess 0.5 Sodium 127 L Potassium 3.6 Chloride 95 L Carbon Dioxide 22 Anion Gap 10.0 BUN 9 Creatinine 0.8 Estimated GFR (MDRD) 75 L Glucose 613 H* Calcium 7.1 L Total Bilirubin 0.6 AST 19 ALT 15 Alkaline Phosphatase 351 H Total Protein 6.9 Albumin 2.0 L Globulin 4.9 H Albumin/Globulin Ratio 0.4 L Lipase 21 L Urine Color Urine Clarity Urine pH Ur Specific [place] Urine Protein Urine Glucose (UA) Urine Ketones Urine Occult Blood Urine Nitrite Urine Bilirubin Urine Urobilinogen Ur Leukocyte Esterase Urine RBC Urine WBC Urine WBC Clumps Ur Squamous Epith Cells Urine Bacteria Ur Microscopic Review Urine Culture Comments Urine Opiates Screen Ur Oxycodone Screen Urine Methadone Screen Ur Propoxyphene Screen Ur Barbiturates Screen Ur Tricyclics Screen Ur Phencyclidine Scrn Ur Amphetamine Screen U Methamphetamines Scrn U Benzodiazepines Scrn Urine Cocaine Screen U Cannabinoids Screen Ethyl Alcohol < 5.0 Serum Ketones NEGATIVE 11/21/19 19:00 WBC RBC Hgb Hct MCV MCH MCHC RDW Plt Count MPV Neut # (Auto) Lymph # (Auto) [place] # (Auto) Eos # (Auto) Baso # (Auto) Absolute Nucleated RBC Nucleated RBC % Manual Slide Review Platelet Estimate Platelet Morphology RBC Morph Micro Appear VBG pH VBG pCO2 VBG pO2 VBG HCO3 VBG Total CO2 VBG O2 Saturation VBG Base Excess Sodium Potassium Chloride Carbon Dioxide Anion Gap BUN Creatinine Estimated GFR (MDRD) Glucose Calcium Total Bilirubin AST ALT Alkaline Phosphatase Total Protein Albumin Globulin Albumin/Globulin Ratio Lipase Urine Color YELLOW Urine Clarity HAZY Urine pH 6.5 Ur Specific [place] 1.010 Urine Protein NEGATIVE Urine Glucose (UA) >=1000 H Urine Ketones NEGATIVE Urine Occult Blood NEGATIVE Urine Nitrite POSITIVE H Urine Bilirubin NEGATIVE Urine Urobilinogen 0.2 (NORMAL) Ur Leukocyte Esterase NEGATIVE Urine RBC 0-5 Urine WBC >25 H Urine WBC Clumps PRESENT Ur Squamous Epith Cells MANY Squamous H Urine Bacteria Many H Ur Microscopic Review INDICATED Urine Culture Comments NOT INDICATED Urine Opiates Screen NEGATIVE Ur Oxycodone Screen POSITIVE H Urine Methadone Screen NEGATIVE Ur Propoxyphene Screen NEGATIVE Ur Barbiturates Screen NEGATIVE Ur Tricyclics Screen NEGATIVE Ur Phencyclidine Scrn NEGATIVE Ur Amphetamine Screen POSITIVE H U Methamphetamines Scrn NEGATIVE U Benzodiazepines Scrn NEGATIVE Urine Cocaine Screen NEGATIVE U Cannabinoids Screen POSITIVE H Ethyl Alcohol Serum Ketones PD MEDICAL DECISION MAKING - ED course Complexity details: reviewed old records, reviewed results, re-evaluated patient, considered differential, d/w patient ED course: Patient is well-appearing, nontoxic. Afebrile. Tolerating p.o. without di fficulty. Blood sugar decreased with IV fluids and insulin. Given Rocephin for possible UTI. She does not have symptoms however, so we will await the urine culture before prescribing oral antibiotics for home. We will restart her on her metformin as well. Her alk phos is chronically elevated and is actually lower than Her baseline. Abdomen is minimally tender on serial examination. Patient counseled regarding signs and symptoms for which I believe and urgent re-evaluation would be necessary. Patient with good understanding of and agreement to plan and is comfortable going home at this time This document was made in part using voice recognition software. While efforts are made to proofread this document, sound alike and grammatical errors may occur. Departure - Departure Disposition: 01 Home, Self Care Clinical Impression: Abdominal pain, Hyperglycemia Condition: Good Instructions: ED Abdominal Pain Unkn Cause, ED Hyperglycemia Diabetic Follow-Up: Lalit Horne MD [Primary Care Provider] - Within 3 Days Prescriptions: Metformin HCl 500 mg PO BID #60 tablet Comments: Follow-up with your doctor for further care. Return if you worsen. You need to be started back on metformin. You should be checking her blood sugars at home. You need to see your doctor within 3 days. Discharge Date/Time: 11/21/19 22:54
[2019-11-21] MEDS ORDERED: MAG HYDROX/AL HYDROX/SIMETH 30 ML UDC PO STA (21:56)
[2019-11-21] MEDS ORDERED: SUCRALFATE 1 GM/10 ML UDC PO STA (21:56)
[2019-11-21] MEDS ORDERED: metFORMIN 500 MG TABLET PO STA (22:20)
[2019-11-21 22:51] VITALS: BP 143/82
== END 2019-11-21 22:54 | disposition home or self-care (01) ==
LOC: EDUNIT# → ED 18:39
DX: R10.11 Right upper quadrant pain (principal); R10.13 Epigastric pain; R11.2 Nausea with vomiting, unspecified; E11.65 Type 2 diabetes mellitus with hyperglycemia; Z79.84 Long term (current) use of oral hypoglycemic drugs; T38.3X6A Underdosing of insulin and oral hypoglycemic [antidiabetic] drugs, initial encounter; I10 Essential (primary) hypertension; Z87.19 Personal history of other diseases of the digestive system; F17.200 Nicotine dependence, unspecified, uncomplicated
CPT/HCPCS: 36415; 80053; 80306; 80320; 81001; 82009; 82803; 83690; 85025; 96361; 96374; 96375; 99283; 99284; A9270; J1815; 81003; 87086

== ENCOUNTER 2019-12-16 17:05 | Outpatient (CLI) | payer MEDICAID | END 2019-12-16 17:06 | disposition critical access hospital (66) | LOC: EMS 17:05 | PROVIDERS: ATTEND Surgery | DX: R10.9 Unspecified abdominal pain (principal); R53.1 Weakness | CPT/HCPCS: A0425; A0427 ==

== ENCOUNTER 2019-12-16 17:35 | Emergency (ER) | payer MEDICAID ==
[2019-12-16] MEDS ORDERED: SODIUM CHLORIDE 0.9% 1,000 ML IV STA ×2 (17:41→18:24)
[2019-12-16 17:42] VITALS: BP 129/79
--- NOTE | 2019-12-16 17:42 | ED Physician Documentation ---
PD HPI ABD PAIN - Stated complaint Stated Complaint: ABD PAIN - Chief complaint Chief Complaint: Abd Pain - History obtained from History obtained from: Patient - History of Present Illness Timing - onset: Chronic Timing - duration: Other (chronic) Pain level max: 8 Pain level now: 8 Quality: Aching, Pain Location: All over / everywhere Radiation: No: Chest, , Lower back, Left flank, Left shoulder, Right flank, Right shoulder, Upper back Improved by: Other (out of her oxycontin since yesterday) Worsened by: Other (nothing) Associated symptoms: No: Fever, Nausea, Vomiting, Hematemesis, Diarrhea, Constipation, Melena, Hematochezia Similar symptoms before: Has not had sx before Recently seen: Not recently seen - Additional information Additional information: Patient with chronic abdominal pain. She states worse today. Ran out of her OxyContin yesterday. Cannot get it filled from the pharmacy for 2 more days. She ran out early. The pain is mainly in the right side of the abdomen. Nothing makes it better or worse. No vomiting. Some nausea. 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 : None HEENT: Other Psych: Depression Musculoskeletal: Gout Derm: Other - Past Surgical History Past Surgical History: Yes General: Splenectomy Ortho: Hip replacement, Rotator cuff repair, Other - Present Medications Home Medications: Ambulatory Orders Medication Instructions Recorded Confirmed Omeprazole 40 mg PO DAILY 08/12/18 11/21/19 Gabapentin 600 mg PO TID 10/28/19 11/21/19 Oxycodone HCl [Oxycontin] 20 mg PO BID 10/28/19 11/21/19 allopurinoL [Allopurinol] 100 mg PO DAILY 10/28/19 11/21/19 Metformin HCl 500 mg PO BID #60 tablet 11/21/19 - Allergies Allergies/Adverse Reactions: Allergies Allergy/AdvReac Type Severity Reaction Status Date / Time morphine Allergy Unknown Verified 12/16/19 17:40 - Social History Does the pt smoke?: Yes Smoking Status: Current every day smoker Does the pt drink ETOH?: No Does the pt have substance abuse?: Yes - Immunizations Immunizations are current?: Yes Immunizations: TDAP >10years/unknown - POLST Patient has POLST: No POLST Status: Full Code PD ED PE NORMAL - Vitals Vital signs reviewed: Yes - General General: Alert and oriented X 3, No acute distress - HEENT HEENT: Moist mucous membranes - Neck Neck: Supple, no meningeal sign - Cardiac Cardiac: RRR, Strong equal pulses - Respiratory Respiratory: No respiratory distress, Clear bilaterally - Abdomen Abdomen: Soft, Non tender, Non distended - Derm Derm: Warm and dry - Neuro Neuro: Alert and oriented X 3 - Psych Psych: Normal mood, Normal affect Results - Vitals Vitals: Vital Signs - 24 hr 12/16/19 17:36 Temperature 36.7 C Heart Rate 81 Respiratory 16 Rate Blood Pressure 129/79 O2 Saturation 95 Oxygen O2 Source Room air - Labs Labs: Laboratory Tests 12/16/19 12/16/19 12/16/19 17:52 17:52 17:52 WBC 6.4 RBC 3.92 L Hgb 12.2 Hct 35.0 L MCV 89.3 MCH 31.1 H MCHC 34.9 RDW 16.9 H Plt Count 329 MPV 11.1 H Neut # (Auto) 3.7 Lymph # (Auto) 2.1 [place] # (Auto) 0.4 Eos # (Auto) 0.1 Baso # (Auto) 0.0 Absolute Nucleated RBC 0.00 Nucleated RBC % 0.0 Manual Slide Review Indicated WBC Morphology NORMAL APPEARANCE Platelet Estimate NORMAL (130-450,000) Platelet Morphology NORMAL APPEARANCE RBC Morph Micro Appear NORMAL APPEARANCE VBG pH 7.373 VBG pCO2 38.8 L VBG pO2 32.5 VBG HCO3 22.1 L VBG Total CO2 23.3 L VBG O2 Saturation 63.7 VBG Base Excess -2.8 L Sodium 132 L Potassium 3.3 L Chloride 96 L Carbon Dioxide 23 Anion Gap 13.0 BUN 10 Creatinine 0.9 Estimated GFR (MDRD) 66 L Glucose 370 H Calcium 7.7 L Total Bilirubin 0.7 AST 24 ALT 20 Alkaline Phosphatase 365 H Total Protein 6.9 Albumin 2.1 L Globulin 4.8 H Albumin/Globulin Ratio 0.4 L Lipase 26 Urine Color Urine Clarity Urine pH Ur Specific [place] Urine Protein Urine Glucose (UA) Urine Ketones Urine Occult Blood Urine Nitrite Urine Bilirubin Urine Urobilinogen Ur Leukocyte Esterase Ur Microscopic Review Urine Culture Comments Urine Opiates Screen Ur Oxycodone Screen Urine Methadone Screen Ur Propoxyphene Screen Ur Barbiturates Screen Ur Tricyclics Screen Ur Phencyclidine Scrn Ur Amphetamine Screen U Methamphetamines Scrn U Benzodiazepines Scrn Urine Cocaine Screen U Cannabinoids Screen Serum Ketones NEGATIVE 12/16/19 19:39 WBC RBC Hgb Hct MCV MCH MCHC RDW Plt Count MPV Neut # (Auto) Lymph # (Auto) [place] # (Auto) Eos # (Auto) Baso # (Auto) Absolute Nucleated RBC Nucleated RBC % Manual Slide Review WBC Morphology Platelet Estimate Platelet Morphology RBC Morph Micro Appear VBG pH VBG pCO2 VBG pO2 VBG HCO3 VBG Total CO2 VBG O2 Saturation VBG Base Excess Sodium Potassium Chloride Carbon Dioxide Anion Gap BUN Creatinine Estimated GFR (MDRD) Glucose Calcium Total Bilirubin AST ALT Alkaline Phosphatase Total Protein Albumin Globulin Albumin/Globulin Ratio Lipase Urine Color YELLOW Urine Clarity CLEAR Urine pH 6.0 Ur Specific [place] 1.020 Urine Protein TRACE Urine Glucose (UA) >=1000 H Urine Ketones NEGATIVE Urine Occult Blood NEGATIVE Urine Nitrite NEGATIVE Urine Bilirubin NEGATIVE Urine Urobilinogen 0.2 (NORMAL) Ur Leukocyte Esterase NEGATIVE Ur Microscopic Review NOT INDICATED Urine Culture Comments NOT INDICATED Urine Opiates Screen POSITIVE H Ur Oxycodone Screen NEGATIVE Urine Methadone Screen NEGATIVE Ur Propoxyphene Screen NEGATIVE Ur Barbiturates Screen NEGATIVE Ur Tricyclics Screen NEGATIVE Ur Phencyclidine Scrn NEGATIVE Ur Amphetamine Screen POSITIVE H U Methamphetamines Scrn POSITIVE H U Benzodiazepines Scrn NEGATIVE Urine Cocaine Screen NEGATIVE U Cannabinoids Screen POSITIVE H Serum Ketones PD MEDICAL DECISION MAKING - ED course Complexity details: reviewed results, re-evaluated patient, fred soto/w patient ED course: 54-year-old female presents to the emergency department with her chronic abdominal pain. No significant lab abnormalities. She is out of her OxyContin. We will not refill this for her. She needs to follow-up with her doctor for further care. Patient is well-appearing, nontoxic. Afebrile. She request to go home at this time after being told she will not receive narcotics tonight. Patient counseled regarding signs and symptoms for which I believe and urgent re-evaluation would be necessary. Patient with good understanding of and ag reement to plan and is comfortable going home at this time This document was made in part using voice recognition software. While efforts are made to proofread this document, sound alike and grammatical errors may occur. Departure - Departure Disposition: Home, Self Care Clinical Impression: Hyperglycemia Abdominal pain Qualifiers: Abdominal location: generalized Qualified Code(s): R10.84 - Generalized abdominal pain Condition: Good Instructions: ED Abdominal Pain Unkn Cause Follow-Up: Lalit Horne MD [Primary Care Provider] - Within 1 week Comments: You need to follow-up with your doctor for any further pain medication. Your laboratory testing does not show any acute abnormalities today. You also need your blood sugar rechecked with your doctor.
[2019-12-16 18:02] LABS: BASOPHILS % (AUTO) 0.5 %; EOSINOPHILS # (AUTO) 0.1 10^3/uL (0.0-0.7); EOSINOPHILS % (AUTO) 2.2 %; HGB - HEMOGLOBIN 12.2 g/dL (12.0-16.0); LYMPHOCYTES # (AUTO) 2.1 10^3/uL (1.5-3.5); LYMPHOCYTES % (AUTO) 33.2 %; MEAN CORPUSCULAR HEMOGLOBIN 31.1 pg (27.0-31.0); MEAN CORPUSCULAR HGB CONC 34.9 g/dL (32.0-36.0); MEAN CORPUSCULAR VOLUME 89.3 fL (81.0-99.0); MEAN PLATELET VOLUME 11.1 fL (7.9-10.8); MONOCYTES # (AUTO) 0.4 10^3/uL (0.0-1.0); MONOCYTES % (AUTO) 6.8 %; NEUTROPHILS # (AUTO) 3.7 10^3/uL (1.5-6.6); PLT - PLATELET COUNT 329 10^3/uL (130-450); RED BLOOD COUNT 3.92 10^6/uL (4.20-5.40); RED CELL DISTRIBUTION WIDTH 16.9 % (12.0-15.0); WHITE BLOOD COUNT 6.4 x10^3/uL (4.8-10.8)
[2019-12-16 18:03] LABS: VBG BASE EXCESS -2.8 mmol/L (-2 - +2); VBG PCO2 38.8 mmHg (41-51); VBG PH 7.373 (7.31-7.41); VBG PO2 32.5 mmHg (25-47); VBG TOTAL CO2 23.3 mmol/L (24-29)
[2019-12-16 18:08] LABS: KETONES, SERUM (ACETEST) NEGATIVE (NEGATIVE)
[2019-12-16 18:12] LABS: ALBUMIN 2.1 g/dL (3.2-5.5); ALBUMIN/GLOBULIN RATIO 0.4 (1.0-2.2); ALKALINE PHOSPHATASE 365 IU/L (42-121); ALT ALANINE AMINOTRANSFERASE 20 IU/L (10-60); AST ASPARTATE AMINOTRANSFERASE 24 IU/L (10-42); BILIRUBIN,TOTAL 0.7 mg/dL (0.2-1.0); BUN - BLOOD UREA NITROGEN 10 mg/dL (6-20); CALCIUM 7.7 mg/dL (8.5-10.3); CARBON DIOXIDE - CO2 23 mmol/L (21-32); CHLORIDE 96 mmol/L (101-111); CREATININE 0.9 mg/dL (0.4-1.0); GLUCOSE 370 mg/dL (70-100); LIPASE 26 U/L (22-51); SODIUM 132 mmol/L (135-145); TOTAL PROTEIN 6.9 g/dL (6.7-8.2)
[2019-12-16 18:27] LABS: PLATELET ESTIMATE, MANUAL NORMAL (130-450,000) (NORMAL); PLATELET MORPHOLOGY NORMAL APPEARANCE (NORMAL); RBC MORPHOLOGY (MULTIPLE) NORMAL APPEARANCE (NORMAL)
[2019-12-16] MEDS ORDERED: ACETAMINOPHEN 325 MG TABLET PO STA (19:06)
[2019-12-16 19:40] LABS: MUDS CUTOFF CONCENTRATIONS CUTOFF CONC BELOW:
[2019-12-16 19:42] LABS: BILIRUBIN,URINE NEGATIVE (NEGATIVE); GLUCOSE, URINE (UA) >=1000 mg/dL (NEGATIVE); KETONES,URINE (UA) NEGATIVE (NEGATIVE); LEUKOCYTE ESTERASE, URINE NEGATIVE (NEGATIVE); NITRITE,URINE NEGATIVE (NEGATIVE); OCCULT BLOOD,URINE NEGATIVE (NEGATIVE); PROTEIN,URINE TRACE mg/dL (NEGATIVE); UROBILINOGEN,URINE 0.2 (NORMAL) E.U./dL (NORMAL)
[2019-12-16 19:56] LABS: CLARITY,URINE CLEAR (CLEAR)
[2019-12-16 19:57] LABS: AMPHETAMINE SCREEN,URINE POSITIVE (NEGATIVE); BENZODIAZEPINES SCREEN, URINE NEGATIVE (NEGATIVE); COCAINE SCREEN URINE NEGATIVE (NEGATIVE); METHADONE SCREEN, URINE NEGATIVE (NEGATIVE); METHAMPHETAMINES SCREEN, URINE POSITIVE (NEGATIVE); OPIATE SCREEN, URINE POSITIVE (NEGATIVE); OXYCODONE SCREEN, URINE NEGATIVE (NEGATIVE); PROPOXYPHENE SCREEN, URINE NEGATIVE (NEGATIVE); TRICYCLIC ANTIDEPRESSANT,URINE NEGATIVE (NEGATIVE)
== END 2019-12-16 20:22 | disposition home or self-care (01) ==
LOC: ED 17:35
DX: R10.84 Generalized abdominal pain (principal); G89.29 Other chronic pain; E11.65 Type 2 diabetes mellitus with hyperglycemia; Z79.84 Long term (current) use of oral hypoglycemic drugs; I10 Essential (primary) hypertension; F17.200 Nicotine dependence, unspecified, uncomplicated
CPT/HCPCS: 36415; 80053; 80306; 81003; 82009; 82803; 83690; 85025; 96360; 96361; 99283; 99284; A9270; 81001; 87086

== ENCOUNTER 2019-12-29 10:18 | Outpatient (CLI) | payer MEDICAID ==
[2019-12-29 19:16] LABS: BASOPHILS # (AUTO) 0.1 10^3/uL (0.0-0.1); BASOPHILS % (AUTO) 0.8 %; EOSINOPHILS % (AUTO) 0.6 %; HGB - HEMOGLOBIN 12.2 g/dL (12.0-16.0); LYMPHOCYTES # (AUTO) 2.7 10^3/uL (1.5-3.5); LYMPHOCYTES % (AUTO) 40.8 %; MEAN CORPUSCULAR HEMOGLOBIN 30.6 pg (27.0-31.0); MEAN CORPUSCULAR HGB CONC 32.7 g/dL (32.0-36.0); MEAN CORPUSCULAR VOLUME 93.5 fL (81.0-99.0); MEAN PLATELET VOLUME 12.4 fL (7.9-10.8); MONOCYTES # (AUTO) 0.5 10^3/uL (0.0-1.0); MONOCYTES % (AUTO) 7.1 %; NEUTROPHILS # (AUTO) 3.4 10^3/uL (1.5-6.6); NEUTROPHILS % (AUTO) 50.5 %; PLT - PLATELET COUNT 348 10^3/uL (130-450); RED BLOOD COUNT 3.99 10^6/uL (4.20-5.40); RED CELL DISTRIBUTION WIDTH 16.5 % (12.0-15.0); WHITE BLOOD COUNT 6.7 x10^3/uL (4.8-10.8)
[2019-12-29 19:42] LABS: CALCIUM 8.2 mg/dL (8.5-10.3); CREATININE 0.8 mg/dL (0.4-1.0)
[2019-12-29 20:03] LABS: HB2 TOTAL 12.5 g/dL; HEMOGLOBIN A1C 1.52 g/dL; HEMOGLOBIN A1C % 13.3 % (4.6-6.2)
== END 2019-12-29 23:59 | disposition home or self-care (01) ==
LOC: LAB.WCP 10:18
PROVIDERS: ATTEND Family Medicine
DX: K86.1 Other chronic pancreatitis (principal); E11.40 Type 2 diabetes mellitus with diabetic neuropathy, unspecified; E11.649 Type 2 diabetes mellitus with hypoglycemia without coma
CPT/HCPCS: 36415; 80048; 83036; 85025

== ENCOUNTER 2020-02-08 12:31 | Outpatient (CLI) | payer MEDICAID | END 2020-02-08 12:32 | disposition critical access hospital (66) | LOC: EMS 12:31 | PROVIDERS: ATTEND Surgery | DX: R10.9 Unspecified abdominal pain (principal); R19.7 Diarrhea, unspecified | CPT/HCPCS: A0425; A0429 ==

== ENCOUNTER 2020-02-08 12:53 | Observation (INO) | payer MEDICAID ==
[2020-02-08 13:26] LABS: BILIRUBIN,URINE NEGATIVE (NEGATIVE); GLUCOSE, URINE (UA) 100 mg/dL (NEGATIVE); KETONES,URINE (UA) NEGATIVE (NEGATIVE); LEUKOCYTE ESTERASE, URINE MODERATE (NEGATIVE); NITRITE,URINE NEGATIVE (NEGATIVE); OCCULT BLOOD,URINE NEGATIVE (NEGATIVE); PROTEIN,URINE NEGATIVE (NEGATIVE); UROBILINOGEN,URINE 1 (NORMAL) E.U./dL (NORMAL)
[2020-02-08 13:27] LABS: CLARITY,URINE CLEAR (CLEAR)
[2020-02-08 13:40] LABS: BASOPHILS # (AUTO) 0.1 10^3/uL (0.0-0.1); BASOPHILS % (AUTO) 0.4 %; EOSINOPHILS % (AUTO) 0.1 %; HGB - HEMOGLOBIN 12.1 g/dL (12.0-16.0); LYMPHOCYTES # (AUTO) 1.8 10^3/uL (1.5-3.5); MEAN CORPUSCULAR HEMOGLOBIN 32.1 pg (27.0-31.0); MEAN CORPUSCULAR HGB CONC 35.2 g/dL (32.0-36.0); MEAN CORPUSCULAR VOLUME 91.2 fL (81.0-99.0); MEAN PLATELET VOLUME 11.2 fL (7.9-10.8); MONOCYTES # (AUTO) 0.5 10^3/uL (0.0-1.0); NEUTROPHILS # (AUTO) 9.1 10^3/uL (1.5-6.6); PLT - PLATELET COUNT 467 10^3/uL (130-450); RED BLOOD COUNT 3.77 10^6/uL (4.20-5.40); RED CELL DISTRIBUTION WIDTH 14.7 % (12.0-15.0); WHITE BLOOD COUNT 11.5 x10^3/uL (4.8-10.8)
[2020-02-08 13:49] LABS: BACTERIA,URINE Few /HPF (None Seen); RBC,URINE 0-5 /HPF (0-5); SQUAMOUS EPITHELIAL CELL,UR MOD Squamous (<= Few)
[2020-02-08 13:56] LABS: ALBUMIN 1.6 g/dL (3.2-5.5); ALBUMIN/GLOBULIN RATIO 0.3 (1.0-2.2); BILIRUBIN,TOTAL 0.8 mg/dL (0.2-1.0); CREATININE 0.7 mg/dL (0.4-1.0); TOTAL PROTEIN 6.9 g/dL (6.7-8.2)
[2020-02-08 13:59] LABS: CALCIUM 6.3 mg/dL (8.5-10.3)
[2020-02-08] MEDS ORDERED: SODIUM CHLORIDE 0.9% 1,000 ML IV STA (14:02)
[2020-02-08] MEDS ORDERED: POTASSIUM CHLOR 10 MEQ/100 ML 10 MEQ/100 ML BAG IV STA (14:02)
--- NOTE | 2020-02-08 14:02 | ED Physician Documentation ---
History of Present Illness - Stated complaint Stated Complaint: ABD PX - Chief complaint Chief Complaint: Abd Pain - History obtained from History obtained from: Patient - History of Present Illness Timing: How many days ago (2) - Additonal information Additional information: 54-year-old female presents to the emergency department with chief complaint of uncontrolled abdominal pain. She has had many similar presentations in the past for this. She is homeless and currently staying at friends houses. She states that she ran out of her oxycodone 2 days ago and since then the pain has been too severe to allow her to walk even. She had been having some diarrhea but was able to produce a very large formed bowel movement for the nurses here in the emergency department. She denies any cough or fever but she does appear exceedingly thin. She denies any fevers, has no dysuria. pmh Alcoholic cirrhosis Review of Systems Constitutional: denies: Fever, Chills Cardiac: denies: Chest pain / pressure, Palpitations Respiratory: reports: Cough. denies: Dyspnea GI: reports: Abdominal Pain, Nausea, Constipation, Diarrhea. denies: Abdominal Swelling : denies: Dysuria, Frequency, Hesitancy, Hematuria Skin: denies: Rash, Lesions Musculoskeletal: denies: Neck pain, Back pain Neurologic: reports: Generalized weakness. 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 : None HEENT: Other Psych: Depression Musculoskeletal: Gout Derm: Other - Past Surgical History Past Surgical History: Yes General: Splenectomy Ortho: Hip replacement, Rotator cuff repair, Other - Present Medications Home Medications: Ambulatory Orders Medication Instructions Recorded Confirmed Omeprazole 40 mg PO DAILY 08/12/18 02/08/20 Gabapentin 600 mg PO TID 10/28/19 02/08/20 Oxycodone HCl [Oxycontin] 20 mg PO Q12H 10/28/19 02/08/20 allopurinoL [Allopurinol] 100 mg PO DAILY 10/28/19 02/08/20 - Allergies Allergies/Adverse Reactions: Allergies Allergy/AdvReac Type Severity Reaction Status Date / Time morphine Allergy Unknown Verified 12/16/19 17:40 - Social History Does the pt smoke?: Yes Smoking Status: Current every day smoker Does the pt drink ETOH?: No Does the pt have substance abuse?: Yes - Immunizations Immunizations are current?: Yes Immunizations: TDAP >10years/unknown - POLST Patient has POLST: No POLST Status: Full Code PD ED PE EXPANDED - General General: Alert, Disheveled, poorly kept, Other (appears thin) - Neck Neck: Supple w/out meningeal sx. No: No tenderness - Cardiac Cardiac: Regular Rate, Radial strong equal, Femoral strong equal, Pedal strong equal, Cap refill < 2 sec, Prolonged cap refill - Respiratory Respiratory: Clear to ausultation warren. No: Distress, Labored - Abdomen Abdomen: Normal Bowel sounds, Tender to palpation, RUQ, Epigastric, Surgical scars (large, left oblique). No: Rebound, Guarding - Female Female : Normal external - Derm Derm: Normal color, Pick reyes, Bruising (extensive bruising/scabbing BUE) - Extremities Extremities: Normal - Neuro Neuro: Alert and Oriented X 3, CNII-XII intact, Normal speech - GCS Eye Opening: Spontaneous Motor: Obeys Commands Verbal: Oriented Total: 15 Results - Vitals Vitals: Vital Signs - 24 hr 02/08/20 02/08/20 13:01 15:03 Temperature 36.9 C Heart Rate 79 61 Respiratory 16 13 Rate Blood Pressure 135/87 H 147/103 H O2 Saturation 98 96 Oxygen O2 Source Room air - Labs Labs: Laboratory Tests 02/08/20 02/08/20 02/08/20 13:07 13:30 13:30 WBC 11.5 H RBC 3.77 L Hgb 12.1 Hct 34.4 L MCV 91.2 MCH 32.1 H MCHC 35.2 RDW 14.7 Plt Count 467 H MPV 11.2 H Neut # (Auto) 9.1 H Lymph # (Auto) 1.8 [place] # (Auto) 0.5 Eos # (Auto) 0.0 Baso # (Auto) 0.1 Absolute Nucleated RBC 0.00 Nucleated RBC % 0.0 PT INR Sodium 132 L Potassium 3.1 L Chloride 98 L Carbon Dioxide 27 Anion Gap 7.0 BUN 12 Creatinine 0.7 Estimated GFR (MDRD) 88 L Glucose 217 H Calcium 6.3 L* Total Bilirubin 0.8 AST 22 ALT 23 Alkaline Phosphatase 445 H Total Protein 6.9 Albumin 1.6 L Globulin 5.3 H Albumin/Globulin Ratio 0.3 L Lipase 15 L Urine Color YELLOW Urine Clarity CLEAR Urine pH 6.0 Ur Specific [place] 1.015 Urine Protein NEGATIVE Urine Glucose (UA) 100 H Urine Ketones NEGATIVE Urine Occult Blood NEGATIVE Urine Nitrite NEGATIVE Urine Bilirubin NEGATIVE Urine Urobilinogen 1 (NORMAL) Ur Leukocyte Esterase MODERATE H Urine RBC 0-5 Urine WBC 11-25 H Ur Squamous Epith Cells MOD Squamous H Urine Bacteria Few Ur Microscopic Review INDICATED Urine Culture Comments NOT INDICATED 02/08/20 13:30 WBC RBC Hgb Hct MCV MCH MCHC RDW Plt Count MPV Neut # (Auto) Lymph # (Auto) [place] # (Auto) Eos # (Auto) Baso # (Auto) Absolute Nucleated RBC Nucleated RBC % PT 12.8 H INR 1.1 Sodium Potassium Chloride Carbon Dioxide Anion Gap BUN Creatinine Estimated GFR (MDRD) Glucose Calcium Total Bilirubin AST ALT Alkaline Phosphatase Total Protein Albumin Globulin Albumin/Globulin Ratio Lipase Urine Color Urine Clarity Urine pH Ur Specific [place] Urine Protein Urine Glucose (UA) Urine Ketones Urine Occult Blood Urine Nitrite Urine Bilirubin Urine Urobilinogen Ur Leukocyte Esterase Urine RBC Urine WBC Ur Squamous Epith Cells Urine Bacteria Ur Microscopic Review Urine Culture Comments - Rads (name of study) Abd US limited Radiology: Final report received (Findings concerning for cirrhosis. Increased echogenicity of the hepatic parenchyma. 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 Trace free fluid in the right lower quadrant identified. Mildly distended gallbladder gallstones and sludge. Gallbladder wall thickening) CT abd Radiology: Final report received, See rad report PD MEDICAL DECISION MAKING - ED course Complexity details: reviewed results, re-evaluated patient, considered differential, d/w patient, d/w organization development consultant ED course: 54-year-old female presents to the emergency department with a chief complaint of uncontrolled abdominal pain. This is in the setting of a history of alcoholic cirrhosis and known gallstones. She also does have a history of pancreatitis in the past. In addition to this she has been out of her pain medications for 2 days which is likely contributing to her abdominal - On initial presentation she appears very thin and cachetic. By laboratory values she is severely malnourished. Her albumin 1.6. - She was quite tender in the right upper quadrant therefore we proceeded with abdominal ultrasound imaging. The ultrasound shows that there is gallbladder sludge and stones well some gallbladder wall thickening. Acute cholecystitis could not be ruled out by ultrasound imaging. I discussed this finding with Dr. Nam the on-call surgeon. At this point, he would recommend admission to the medicine service. He would also like a CT scan to be completed and plan for potential HIDA scan - Patient will be admitted to the hospitalist service. I have spoken with Dr. Angela Philip who has agreed to admit the patient under and observation status For further evaluation of abdominal pain with surgery consulting. Departure - Departure Disposition: ED Place in Observation Clinical Impression: Abdominal pain Qualifiers: Abdominal location: right upper quadrant Qualified Code(s): R10.11 - Right upper quadrant pain Discharge Date/Time: 02/08/20 17:11
[2020-02-08] MEDS ORDERED: CALCIUM GLUCONATE 1,000 MG in SODIUM CHLORIDE 0.9% 50 ML IV STA (14:03)
[2020-02-08] MEDS ORDERED: HYDROmorphone 1 MG/ML CARPUJECT IVP STA ×2 (14:07→16:34)
--- NOTE | 2020-02-08 15:13 | Ultrasound Report ---
PROCEDURE: Abdomen Limited INDICATIONS: RUQ abd pain; hx of gall stones TECHNIQUE: Real-time scanning was performed of the limited abdominal and retroperitoneal organs, with image docu mentation. COMPARISON: Abdominal ultrasound 04/11/2019. CT abdomen and pelvis 02/19/2019 FINDINGS: Liver: Within normal limits in size. Increased in echogenicity. Liver surface appears nodular. 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 Gallbladder: Mildly distended. Gallstones are present. Sludge is present. Gallbladder wall measures 6 mm. No pericholecystic fluid. Negative sonographic Ward sign. Biliary ducts: Intrahepatic bile ducts are non-dilated. Extrahepatic bile duct caliber measures 4 m m. Normal is 6-7 mm or less in diameter, or 10 mm or less post-cholecystectomy. Pancreas: Mostly obscured. Right kidney: Measures 10.3 cm. Cortex 1.1 cm. Cortex is increased in echogenicity. Punctate echogeni c foci. No hydronephrosis. Miscellaneous: Trace free fluid in the right lower quadrant. IMPRESSION: 1. Findings concerning for cirrhosis. Increased echogenicity of the hepatic parenchyma. Cavernous tra nsformation of the esteban hepatis. 2. Trace free fluid in the right lower quadrant identified. 3. Mildly distended gallbladder. Gallstones and sludge. Gallbladder wall thickening. Findings are non specific but could be seen in acute cholecystitis or secondary to liver disease and NPO status. 4. No biliary ductal dilatation seen. If clinically indicated consider further evaluation with CT abdomen and pelvis with IV contrast. Reviewed by: Chris Lee MD on 02/08/2020 3:11 PM PDT Approved by: Chris Lee MD on 02/08/2020 3:11 PM PDT Station ID: [id number]
[2020-02-08 16:21] LABS: INR 1.1 (0.8-1.2); PT - PROTHROMBIN TIME 12.8 secs (9.9-12.6)
[2020-02-08] MEDS ORDERED: ONDANSETRON 4 MG/2 ML VIAL IVP PRN (16:26)
[2020-02-08] MEDS ORDERED: SODIUM CHLORIDE FLUSH 0.9% 10 ML SYRINGE IVP PRN (16:26)
[2020-02-08] MEDS ORDERED: IOVERSOL 320 100 ML VIAL IVP ONE ×2 (16:42→17:13)
--- NOTE | 2020-02-08 17:32 | CT Report ---
PROCEDURE: Abdomen/Pelvis W INDICATIONS: cirrhosis; GB CONTRAST: IV CONTRAST: Optiray 320 ml: 100 PO CONTRAST: *NO PO CONTRAST TECHNIQUE: After the administration of intravenous contrast, 5 mm thick sections acquired from the diaphragms to the symphysis. 5 mm thick coronal and sagittal reformats were acquired. For radiation dose reducti on, the following was used: automated exposure control, adjustment of mA and/or kV according to mc ent size. COMPARISON: 02/19/2019. FINDINGS: Image quality: Excellent. ABDOMEN: Lung bases: Moderate sized airspace opacities are seen scattered in left lingular segment and left lo wer lobe with small left pleural effusion. Trace right pleural effusion and right basilar small patch y opacities also seen. Heart size is normal. Solid organs: Small liver size with lobulated contour is seen consistent with cirrhosis. 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 Small amount of lobular splenic tissue in left upper quadrant is again seen unchanged in siz e and appearance from previous study. Gallbladder is distended and contains a calcified stone. No CT evidence of acute cholecystitis. Biliary system is non dilated. Atrophic appearing pancreas with num erous parenchymal calcifications are again seen, unchanged from previous study. No adrenal nodules. Kidneys demonstrate normal size and enhancement, without hydronephrosis. Peritoneum and bowel: Moderate to large amount of ascites fluid is seen in abdomen or pelvis. No maddi s peritoneal free air. There is small hiatal hernia. Diffuse gastric wall thickening is noted. No kaci dence of bowel obstruction. No gross abnormal small bowel or colon wall thickening. Nodes and vessels: No retroperitoneal or mesenteric adenopathy by size criteria. Aorta and inferior vena cava are normal in size. Moderate atherosclerotic calcifications are again noted. Miscellaneous: No ventral hernias. Generalized anasarca is seen PELVIS: Genitourinary: Bladder wall thickness is normal. Miscellaneous: No inguinal hernias or adenopathy. No gross abnormality is seen in uterus and bilate ral adnexa. Bones: No suspicious bony lesions. No vertebral body compression fractures. IMPRESSION: 1. Moderate to large amount of ascites fluid. No gross free air. Generalized anasarca suggestive of t hird spacing. 2. Moderate left basilar airspace opacities suggestive of patchy left basilar infiltrate/atelectasis. Small to moderate left pleural effusion. Trace right pleural effusion and small patchy right basilar infiltrate/atelectasis. 3. Cirrhotic appearing liver. 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 4. Cholelithiasis, no CT evidence of acute cholecystitis. Appearance of spleen and pancreas are uncha nged from prior study with suggestion of prior pancreatitis. 5. No evidence of bowel obstruction. No gross small bowel or colonic wall thickening. Questionable ga stric wall thickening may be due to under distention. Gastritis cannot be excluded. Reviewed by: Nathan Crabtree MD on 02/08/2020 4:31 PM AKDT Approved by: Nathan Crabtree MD on 02/08/2020 4:31 PM AKDT Station ID: [id number]
[2020-02-08] MEDS: INSULIN ASPART 300 UNIT/3 ML PEN SUBQ SCH ×2 (17:57→22:24)
--- NOTE | 2020-02-08 18:40 | HISTORY & PHYSICAL EXAMINATION ---
DATE OF SERVICE: 02/08/2020 Physician: Angela Dial MD HISTORY OF PRESENT ILLNESS: This is a 54-year-old white female with a history of being homeless, has a history of diabetes mellitus on insulin, hypertension, anxiety, gout, polysubstance abuse of methamphetamine, heroin and marijuana. Also, history of alcohol abuse with chronic pancreatitis, alcoholic liver cirrhosis, chronic cholelithiasis, history of splenic infarct, GERD, chronic abdominal pain, is on chronic opiates, who has frequent visits to the emergency room for complaints of chronic abdominal pain. She was admitted here most recently in October of this year with hypothermia and hypoglycemia. Over the past several admissions, her insulin doses needed to be significantly decreased because of recurrence of hypoglycemia. She presents now with complaints of weakness, stating that she has diffuse pain because she ran out of her oxycontin 2 days ago and the pain is so severe that she cannot walk. She also reported in the ER, having constipation alternating with diarrhea. However, in the ER, she had a large, formed, normal-appearing bowel movement for the nurses. There is no cough or fever. She appears cachectic. Evaluation in the ER found right upper quadrant pain, which led to a limited RUQ ultrasound that showed a dilated gallbladder with stones and sludge, no gallbladder wall thickening or dilation of the common bile duct. ER doctor spoke to the general surgeon healthcare management consultant, who advised that she have a CT of the abdomen and, if necessary, a HIDA scan and if cholecystitis was documented, then she would need to be transferred to a facility with higher level of care because of her multiple comorbidities, if surgical management of cholecystitis is needed. PAST MEDICAL HISTORY: See above in paragraph #1. ALLERGIES: MORPHINE. PAST SURGICAL HISTORY 1. Hip replacement. 2. Rotator cuff repair. 3. Splenectomy (?partial, details are unclear about this). MEDICATIONS 1. Omeprazole 20 mg daily. 2. Allopurinol 100 mg daily. 3. Gabapentin 600 mg, unknown frequency. 4. OxyContin 20 mg ER b.i.d. 5. She also has been using only Metformin and there has been no insulin use for several months, apparently. SOCIAL HISTORY: Past alcohol abuse, currently denies this, past marijuana, methamphetamine, and heroin abuse. Smoking of 3/4 pack a day still. FAMILY HISTORY: No inherited diseases. REVIEW OF SYSTEMS: A comprehensive review of systems was performed and pertinent positives are listed above, the rest are negative. PHYSICAL EXAMINATION GENERAL: White female who appears much older than her stated age. She is comfortable appearing, is supine in bed. VITAL SIGNS: Blood pressure 150/80, heart rate 60 in sinus rhythm, afebrile, room air saturation 95%. HEENT: Shows missing teeth, dry oral mucosa and skin is leathery and very wrinkled. NECK: No JVD in a supine position. CHEST: Clear. HEART: Normal heart sounds, no murmurs. ABDOMEN: Mildly distended, mildly tender in the right upper quadrant. Normal bowel sounds. Cannot rule out ascites. EXTREMITIES: No leg edema. NEUROLOGIC: No asterixis. No resting tremor. Grossly intact motor exam. LABORATORY DATA: Sodium 132, potassium 3.1. Calcium 6.3 with an albumin of 1.6, lipase 15. BUN 12, creatinine 0.7, glucose 217. White blood count 11.5, hemoglobin 12, platelet count 467. INR 1.1. Urinalysis showed high glucose, moderate leukocyte esterase and white cells, but also moderate squamous cells. There was no urine toxicology screen done today. IMAGING: Abdominal ultrasound showed as described above: dilated gallbladder with normal wall thickness, stones are present and sludge is present. There is no common bile duct dilatation. IMPRESSION/DIAGNOSES 1. Abdominal pain. 2. Gallstones. 3. Diabetes mellitus, no longer on insulin. 4. Hypoalbuminemia. 5. Malnutrition. 6. Homeless person. 7. History of polysubstance abuse. There is a form scanned in our medical record that indicates that she should not be discharged with any new prescriptions for narcotics. 8. Cirrhosis of the liver. 9. History of alcohol abuse. PLAN: Place patient in Observation status. Follow advice as per surgical consult, which will be requested formally. Proceed to a CT of the abdomen for definition of the entire abdominal anatomy. Proceed to a nuclear medicine HIDA scan to rule out acute cholecystitis, which would be done tomorrow, since Nuclear Medicine is gone now. Since there is a (minimally) elevated WBC, obtain blood cultures if she has a fever spike. Continue medication for pain control. Start iv hydration and a clear liquid diet, advance diet as tolerated, given her abdominal pain. Continue with her medication of Allopurinol and other pain medication. DEEP VENOUS THROMBOSIS PROPHYLAXIS: SCDs. CODE STATUS: FULL CODE. ATTESTATION: Patient is expected to be discharged or transferred to another facility within 96 hours: Yes. cc: Lalit Horne MD TD: 02/08/2020 18:08 MTDD
[2020-02-08] MEDS: D5NS W/20 MEQ KCL 1,000 ML IV SCH (18:59)
[2020-02-08] MEDS: SODIUM CHLORIDE FLUSH 0.9% 10 ML SYRINGE IVP SCH (19:00)
[2020-02-08] MEDS: FAMOTIDINE 20 MG TABLET PO SCH (20:36)
[2020-02-08] MEDS: HYDROmorphone 2 MG/ML VIAL IVP PRN (20:36)
[2020-02-08] MEDS: GABAPENTIN 300 MG CAPSULE PO SCH (22:25)
[2020-02-08] MEDS: oxyCODONE ER 10 MG TABLET PO SCH (22:25)
[2020-02-08] MEDS: SUCRALFATE 1 GM/10 ML UDC PO SCH (22:27)
[2020-02-09] MEDS: HYDROmorphone 2 MG/ML VIAL IVP PRN ×5 (00:33→16:25)
[2020-02-09] MEDS: SODIUM CHLORIDE FLUSH 0.9% 10 ML SYRINGE IVP SCH ×3 (00:34→16:25)
[2020-02-09] MEDS ORDERED: MIN OIL/DIMETHICON/COCONUT OIL 92 GM TUBE TOP PRN (01:48)
[2020-02-09] MEDS: D5NS W/20 MEQ KCL 1,000 ML IV SCH ×2 (04:23→14:59)
[2020-02-09 04:59] LABS: BASOPHILS # (AUTO) 0.1 10^3/uL (0.0-0.1); BASOPHILS % (AUTO) 0.7 %; EOSINOPHILS % (AUTO) 0.3 %; HGB - HEMOGLOBIN 11.6 g/dL (12.0-16.0); LYMPHOCYTES # (AUTO) 2.7 10^3/uL (1.5-3.5); LYMPHOCYTES % (AUTO) 38.1 %; MEAN CORPUSCULAR HEMOGLOBIN 32.2 pg (27.0-31.0); MEAN CORPUSCULAR HGB CONC 34.9 g/dL (32.0-36.0); MEAN CORPUSCULAR VOLUME 92.2 fL (81.0-99.0); MEAN PLATELET VOLUME 11.3 fL (7.9-10.8); MONOCYTES # (AUTO) 0.3 10^3/uL (0.0-1.0); MONOCYTES % (AUTO) 4.9 %; NEUTROPHILS # (AUTO) 3.9 10^3/uL (1.5-6.6); NEUTROPHILS % (AUTO) 55.6 %; PLT - PLATELET COUNT 518 10^3/uL (130-450); RED CELL DISTRIBUTION WIDTH 14.6 % (12.0-15.0)
[2020-02-09 05:01] LABS: INR 1.3 (0.8-1.2); PT - PROTHROMBIN TIME 14.6 secs (9.9-12.6)
[2020-02-09 05:09] LABS: ALBUMIN 1.4 g/dL (3.2-5.5); ALBUMIN/GLOBULIN RATIO 0.3 (1.0-2.2); BILIRUBIN,TOTAL 0.8 mg/dL (0.2-1.0); CREATININE 0.6 mg/dL (0.4-1.0); TOTAL PROTEIN 6.3 g/dL (6.7-8.2)
[2020-02-09 05:10] LABS: CALCIUM 6.1 mg/dL (8.5-10.3); MAGNESIUM 0.8 mg/dL (1.7-2.8)
[2020-02-09 05:27] LABS: HB2 TOTAL 11.3 g/dL; HEMOGLOBIN A1C 1.1 g/dL; HEMOGLOBIN A1C % 11.1 % (4.6-6.2)
[2020-02-09] MEDS: SUCRALFATE 1 GM/10 ML UDC PO SCH ×3 (06:14→17:33)
[2020-02-09] MEDS: GABAPENTIN 300 MG CAPSULE PO SCH ×2 (06:14→14:13)
[2020-02-09] MEDS ORDERED: MAGNESIUM SULFATE 2 GRAM 2 GM/50 ML BAG IV ONE (06:48)
[2020-02-09] MEDS ORDERED: CALCIUM GLUCONATE 2,000 MG in SODIUM CHLORIDE 0.9% 100ML 100 ML IV ONE (07:30)
[2020-02-09] MEDS: oxyCODONE ER 10 MG TABLET PO SCH (08:04)
[2020-02-09] MEDS: FAMOTIDINE 20 MG TABLET PO SCH (08:04)
[2020-02-09] MEDS: INSULIN ASPART 300 UNIT/3 ML PEN SUBQ SCH ×3 (08:05→17:33)
--- NOTE | 2020-02-09 08:53 | PHARMACY PROGRESS NOTE ---
- Best Possible Medication History Admit Date and Time: 02/08/20 1622 Processed by: Pharmacy Medication History completed: Yes Patient Interview: Completed Secondary Source(s): Pharmacy records, Insurance records (PATIENT INTERVIEWED BY BRAND AMBASSADOR. PATIENT ABLE TO CONFIRM HOME MEDICATIONS ) As the person ultimately responsible for medication therapy, providers are able to order a medication from an existing home medication list in [facility] via the "Reconcile Routine" prior to Confirmation of that medication by software support specialist. Such practice is discouraged except when the physician, in their clinical judgment, deems that a medical need exists for a medication without regard to previous use.
[2020-02-09] MEDS ORDERED: allopurinoL 100 MG TABLET PO SCH (09:00)
[2020-02-09] MEDS ORDERED: MAGNESIUM OXIDE 400 MG TABLET PO SCH (09:00)
[2020-02-09] MEDS: POTASSIUM CHLOR 10 MEQ/100 ML 10 MEQ/100 ML BAG IV SCH ×4 (09:17→15:04)
--- NOTE | 2020-02-09 12:32 | Discharge Plan ---
Discharge Plan Problem Reviewed?: Yes Disposition: Home, Self Care Condition: Stable Diet: Regular Activity Restrictions: Activity as Tolerated Shower Restrictions: No Assistance Devices: Walker Health Concerns: You were here in Observation status to treat the abdominal pain and for closer evaluation of the abdomen, right side. There is no active gallbladder infect ion. Please resume your prehospital medications, stay well-hydrated, you need additional intake or [id number] supplements of magnesium. Plan of Treatment: As above. A new front-wheel walker was provided for you, after being evaluated by physical therapy. Care Goals: Improvement in symptoms and stabilization are the goals. Assessment: The patient understands. No Smoking: If you smoke, Please STOP! Call for help. Follow-up with: Lalit Horne MD [Provider Admit Priv/Credential] -
--- NOTE | 2020-02-09 12:37 | DISCHARGE SUMMARY ---
Discharge Summary Admit Date: 02/08/20 Discharge Date: 02/09/20 Discharging Provider: Dr Angela Dial Primary Care Provider: Dr Lalit Horne Code Status: Attempt Resuscitation Condition at Discharge: Stable Discharge Disposition: 01 Home, Self Care - HPI History of Present Illness: This is a 54-year-old white female who is homeless, has a history of diabetes mellitus, now weaned off of insulin because of past hypoglycemia, has a history of hypertension, anxiety, gout, polysubstance abuse, alcohol abuse, prior pancreatitis, alcoholic cirrhosis of the liver, chronic cholelithiasis, history of splenic infarct, GERD, chronic abdominal pain and is on chronic opiates. The patient presented to the emergency room with abdominal pain plus description of being very weak from diffuse pain, since she had run out of OxyContin 2 days ago. ER evaluation showed a WBC of 11.5, localized right upper quadrant tenderness and a limited ultrasound revealed dilated gallbladder with stones and sludge. The ER provider spoke to the general surgeon who advised CT of the abdomen and Observation status and to consider a HIDA scan for evaluating for acute cholecystitis. The patient is being placed in Observation for work-up of the localized right upper quadrant pain, treatment of pain, replacement of low serum potassium, magnesium, and sodium. - HOSPITAL COURSE Hospital Course: 1) Abdominal pain She required several doses of iv Dilaudid for treating her pain. The pain did not worsen and she was advance to and tolerated a regular diet. She had a CT abdomen/pelvis which showed no new abdominal pathology. There is a document in this EMR stating she should not receive any new prescriptions for narcotic pain meds at discharge. She was discharged with advice to resume her usual home pain control schedule. 2) Cholelithiasis She underwent a CT abdomen/pelvis that showed gallbladder sludge and stones, and gallbladder size dilated, but no dilation of the common bile duct or gallbladder wall thickening, ruling out cholecystitis. A HIDA scan could not be performed, per the nuclear radiologist, since she had received Dilaudid within 12 hours, which could contract the CBD and make the scan non-diagnostic. Her WBC normalized from 11.5 to 7.0 and she had no worsening of abdominal pain or any fever, and no further management for chronic gallstones was needed. 3) Diabetes mellitus She was put on a carb-controlled diet with a prn sliding scale Regular Insulin coverage, but no Metformin use or any further use of long-acting Insulin. 4) Hypoalbuminemia Her serum albumen is 1.7, indicative of her poor nutritional status. Her CT abdomen showed generalized anasarca, consistent with third spacing. 5) Malnutrition As in #4. 6) Homeless The SW saw her several times to help facilitate a safe discharge and spoke to her case supervisor as well. 7) Polysubstance abuse Apparently no further use, but a tox screen was not done at admission. 8) Cirrhosis of liver The CT abdomen showed a small, lobulated liver, consistent with cirrhosis, also moderate ascites, small pleural effusions and lung atelectasis, and (chronic and unchanged) cavernous transformation of the portal vein, a mall lobular spleen, atrophic pancreas with numerous calcifications, a small hiatal hernia, diffuse gastric wall thickening, no bowel obstruction or bowel wall thickening. 9) History of alcohol abuse Apparently no further use, but a tox screen was not done at admission. 10) Weakness At discharge, she complained of overall weakness and a PT eval was done and the patient was prescribed a front-wheeled walker for use after discharge. - ALLERGIES Allergies/Adverse Reactions: Allergies Allergy/AdvReac Type Severity Reaction Status Date / Time morphine Allergy Unknown Verified 12/16/19 17:40 - MEDICATIONS Home Medications: Ambulatory Orders Medication Instructions Recorded Confirmed Omeprazole 40 mg PO DAILY 08/12/18 02/09/20 Gabapentin 600 mg PO TID 10/28/19 02/09/20 Oxycodone HCl [Oxycontin] 20 mg PO Q12H 10/28/19 02/09/20 allopurinoL [Allopurinol] 100 mg PO DAILY 10/28/19 02/09/20 Insulin Aspart [NovoLOG] 4 unit SQ TIDWM 02/09/20 02/09/20 - PHYSICAL EXAM AT DISCHARGE General Appearance: positive: No acute distress, Alert, Other (Tanned and leathery skin) Eyes Bilateral: positive: Normal inspection, EOMI Neck: positive: Nml inspection, No JVD Respiratory: positive: No respiratory distress Cardiovascular: positive: Regular rate & rhythm Abdomen: positive: Non-tender, Other (Soft, mildly distended.) Skin: positive: Other (Tanned, leathery skin) Neurologic/Psychiatric: positive: Oriented x3, Other (Non-focal) - LABS Result Diagrams: 02/09/20 04:30 02/09/20 14:10 - FOLLOW UP Follow Up: See Dr Horne for routine follow-up. - TIME SPENT Time Spent in Discharge (Minutes): 25
[2020-02-09 14:27] LABS: MAGNESIUM 1.4 mg/dL (1.7-2.8)
[2020-02-09] MEDS ORDERED: POTASSIUM CHLOR 10 MEQ/100 ML 10 MEQ/100 ML BAG IV SCH (15:00)
[2020-02-09 15:36] VITALS: BP 150/87
--- NOTE | 2020-02-09 20:06 | PROVIDER PROGRESS NOTE ---
Progress Note Discussed with ER provider physician safety associate this patient who presented reportedly homeless with recurrent admissions and evaluations for chronic pain. Patient is a known cirrhotic by report. Secondary to abdominal pain ultrasound was obtained which revealed sludge consistent also with the patient's history of Patricia lithiasis. Question was made as to this being biliary colic. In the setting of known cirrhosis with severe cachexia amongst others recommended additional lab test including a coagulation profile. Of note the patient was without significant leukocytosis, and bilirubin was then within normal limits. Discussed with Hospitalist service possibility of obtaining HIDA scan to evaluate for biliary dyskinesia or towards ruling in cholecystitis. Moreover also recommended obtaining CT scan prior to transfer to the floor. On review of her imaging there was no evidence of cholecystitis, redemonstration of sludge and Patricia lithiasis. There was evidence of a cirrhotic appearing liver. This was also confirmed on the patient's ultrasound. There was extensive ascites. No other acute intra-abdominal process. Review of her lab work clearly revealed together with hypoalbuminemia and her imaging and clinical appearance of ascites within her abdomen, Class B Cirrhosis, which carries with it a risk of 30% mortality perioperatively even when optimized. Any consideration for any surgical intervention in this patient would be his best served through referral to a transplant center that has the capacity to optimize and address the potential complications as a relates to the severity of this patient's disease.
== END 2020-02-09 17:30 | disposition home or self-care (01) ==
LOC: EDUNIT# → ED 12:53 → MS2 16:22
PROVIDERS: ADMIT Internal Medicine; ATTEND Internal Medicine
DX: R10.11 Right upper quadrant pain (principal); E87.6 Hypokalemia; E87.1 Hypo-osmolality and hyponatremia; E83.42 Hypomagnesemia; K80.20 Calculus of gallbladder without cholecystitis without obstruction; E11.9 Type 2 diabetes mellitus without complications; E46 Unspecified protein-calorie malnutrition; Z68.1 Body mass index [BMI] 19.9 or less, adult; R64 Cachexia; K70.31 Alcoholic cirrhosis of liver with ascites; K86.0 Alcohol-induced chronic pancreatitis; M10.9 Gout, unspecified; K21.9 Gastro-esophageal reflux disease without esophagitis; F15.11 Other stimulant abuse, in remission; F11.11 Opioid abuse, in remission; F12.11 Cannabis abuse, in remission; F10.11 Alcohol abuse, in remission; R53.1 Weakness; Z59.0 Homelessness; Z74.09 Other reduced mobility; Z79.84 Long term (current) use of oral hypoglycemic drugs; Z79.891 Long term (current) use of opiate analgesic; Z79.899 Other long term (current) drug therapy; F17.210 Nicotine dependence, cigarettes, uncomplicated
CPT/HCPCS: 36415; 74177; 76705; 80053; 81001; 83036; 83690; 83735; 84132; 85025; 85610; 96365; 96366; 96368; 96375; 96376; 97161; 99284; 99285; A6250; A9270; G0378; J1170; J7040; Q9967; 81003; 87086

== ENCOUNTER 2020-02-13 09:32 | Outpatient (CLI) | payer MEDICAID | END 2020-02-13 09:33 | disposition short-term general hospital (02) | LOC: EMS 09:32 | PROVIDERS: ATTEND Surgery | DX: R60.0 Localized edema (principal); R10.9 Unspecified abdominal pain; M79.605 Pain in left leg; M79.604 Pain in right leg | CPT/HCPCS: A0425; A0429 ==

== ENCOUNTER 2020-02-21 12:29 | Outpatient (CLI) | payer MEDICAID | END 2020-02-21 12:30 | disposition critical access hospital (66) | LOC: EMS 12:29 | PROVIDERS: ATTEND Surgery | DX: T40.2X1A Poisoning by other opioids, accidental (unintentional), initial encounter (principal); R40.0 Somnolence | CPT/HCPCS: A0425; A0427; A0999 ==

== ENCOUNTER 2020-02-21 13:41 | Inpatient (IN) | payer MEDICAID ==
--- NOTE | 2020-02-21 13:57 | ED Physician Documentation ---
History of Present Illness - Stated complaint Stated Complaint: FAILURE TO THRIVE - History obtained from History obtained from: Patient, EMS - Additonal information Additional information: 54-year-old woman admitted to hospice yesterday for failure to thrive. [place], and supposedly a roommate found her on the toilet today after being there for 3 hours and she was unarousable. She is accompanied by her medications, she is out of the OxyContin she filled 3 to 4 days ago which was enough for a week, also a brief pill count suggest that she has been overtaking her other medications as well. Patient is arousable without specific complaint on arrival other than wherever she goes from here, she would like to be able to smoke cigarettes. Review of Systems Ten Systems: 10 systems reviewed and negative Constitutional: reports: Reviewed and negative Ears: reports: Reviewed and negative Nose: reports: Reviewed and negative Throat: reports: Reviewed and negative PD PAST MEDICAL HISTORY - Past Medical History Cardiovascular: Hypertension, High cholesterol Respiratory: Asthma, Pneumonia Neuro: None Endocrine/Autoimmune: Type 2 diabetes, Other GI: GERD, Ulcers, Pancreatitis, Cirrhosis RESEARCH MICROBIOLOGIST: None : None HEENT: Other Psych: Depression Musculoskeletal: Gout Derm: Other - Past Surgical History Past Surgical History: Yes General: Splenectomy Ortho: Hip replacement, Rotator cuff repair, Other - Present Medications Home Medications: Ambulatory Orders Medication Instructions Recorded Confirmed Omeprazole 40 mg PO DAILY 08/12/18 02/09/20 Gabapentin 600 mg PO TID 10/28/19 02/09/20 Oxycodone HCl [Oxycontin] 20 mg PO Q12H 10/28/19 02/09/20 allopurinoL [Allopurinol] 100 mg PO DAILY 10/28/19 02/09/20 Insulin Aspart [NovoLOG] 4 unit SQ TIDWM 02/09/20 02/09/20 - Allergies Allergies/Adverse Reactions: Allergies Allergy/AdvReac Type Severity Reaction Status Date / Time morphine Allergy Unknown Verified 12/16/19 17:40 - Social History Does the pt smoke?: Yes Smoking Status: Current every day smoker Does the pt drink ETOH?: No Does the pt have substance abuse?: Yes - Immunizations Immunizations are current?: Yes Immunizations: TDAP >10years/unknown - POLST Patient has POLST: No POLST Status: Full Code PD ED PE NORMAL - Vitals Vital signs reviewed: Yes - General General: Alert and oriented X 3, Other (Thin disheveled female in no distress) - HEENT HEENT: Other (Small pupils) - Neck Neck: Supple, no meningeal sign, No bony TTP - Cardiac Cardiac: RRR, No murmur - Respiratory Respiratory: Other (Rhonchorous) - Abdomen Abdomen: Non tender - Back Back: No CVA TTP, No spinal TTP - Derm Derm: Normal color, Warm and dry - Extremities Extremities: No deformity, No tenderness to palpate - Neuro Neuro: Alert and oriented X 3 Eye Opening: Spontaneous (Slightly somnolent but easily arousable) Motor: Obeys Commands Verbal: Oriented GCS Score: 15 Results - Vitals Vitals: Vital Signs - 24 hr 02/21/20 02/21/20 02/21/20 13:51 14:10 14:49 Temperature 36.5 C 36.7 C 36.7 C Heart Rate 88 77 72 Respiratory 16 14 16 Rate Blood Pressure 125/83 H 124/78 114/72 O2 Saturation 99 96 100 02/21/20 02/21/20 02/21/20 15:41 17:33 18:24 Temperature 2.8 C L Heart Rate 70 76 73 Respiratory 12 16 16 Rate Blood Pressure 118/81 H 121/89 H 116/82 H O2 Saturation 100 100 100 02/21/20 20:00 Temperature Heart Rate 76 Respiratory 16 Rate Blood Pressure 118/82 H O2 Saturation 97 Oxygen O2 Source Room air PD MEDICAL DECISION MAKING - ED course ED course: 54-year-old woman recently admitted to hospice arrives because of poor living situation and missed taking her medications causing somnolence. I spoke with the hospice of the [place] social professionals, Haleigh, available at [phone], shortly after arrival. She confirms that her current living situation will not accept her back. Patient prefers transfer to some sort of living situation that would allow her to smoke. Subsequently I spoke with Dr. Marita Jasso available at [phone]. They do not have admitting privileges here. This is compounded by the fact that I guess the patient needs some insurance enrollment for placement. Subsequently I spoke with Dr. Himanshu Kevin, our hospice medical doctor md/medical director, he did not feel there was medical necessity for GIP admission and therefore was no reason for her to switch from hospice of the [place] to our hospice. Social work putting quite a bit of time and made arrangements, likely going to [place] tomorrow, February 21. Departure - Departure Disposition: 01 Home, Self Care Clinical Impression: Chronic alcoholic pancreatitis, Non-compliance, Narcotic abuse, Hospice care patient Failure to thrive Qualifiers: Failure to thrive age range: in adult Qualified Code(s): R62.7 - Adult failure to thrive Condition: Good
[2020-02-22] MEDS ORDERED: oxyCODONE 5 MG TABLET PO STA ×2 (17:12→19:33)
--- NOTE | 2020-02-22 19:35 | ED Physician Documentation ---
ED Addendum - Addendum Addendum: 02/22/20 19:33 54-year-old female on hospice is awaiting bed placement today she has chronic pain she was administered 2 separate doses of oxycodone 10 mg each and this was in lieu of giving 20 mg at once. Her usual dose is 20 mg twice daily. She is still awaiting bed placement the did not materialize today.
[2020-02-22] MEDS ORDERED: METHADONE 5 MG TABLET PO STA (19:58)
[2020-02-22] MEDS: oxyCODONE 5 MG TABLET PO PRN (20:13)
[2020-02-22] MEDS ORDERED: GABAPENTIN 300 MG CAPSULE ONE (20:34)
[2020-02-22] MEDS: GABAPENTIN 100 MG CAPSULE PO SCH (21:01)
[2020-02-22] MEDS: oxyCODONE ER 10 MG TABLET PO SCH (21:02)
[2020-02-22] MEDS ORDERED: BACITRACIN ZINC OINT 1 PACKET TOP STA (21:05)
[2020-02-23] MEDS: GABAPENTIN 100 MG CAPSULE PO SCH ×3 (05:23→23:05)
[2020-02-23] MEDS: oxyCODONE 5 MG TABLET PO PRN ×3 (05:23→17:27)
[2020-02-23] MEDS: METHADONE 5 MG TABLET PO SCH ×2 (09:41→23:05)
[2020-02-23] MEDS: oxyCODONE ER 10 MG TABLET PO SCH ×2 (09:41→23:11)
[2020-02-23] MEDS ORDERED: ONDANSETRON ODT 4 MG TABLET TL STA (22:58)
[2020-02-24] MEDS: GABAPENTIN 100 MG CAPSULE PO SCH (05:06)
[2020-02-24] MEDS: oxyCODONE 5 MG TABLET PO PRN ×5 (05:06→23:50)
[2020-02-24] MEDS: METHADONE 5 MG TABLET PO SCH ×2 (09:30→21:08)
[2020-02-24] MEDS: oxyCODONE ER 10 MG TABLET PO SCH (09:41)
[2020-02-24] MEDS ORDERED: MAG HYDROX/AL HYDROX/SIMETH 30 ML UDC PO STA (11:41)
--- NOTE | 2020-02-24 14:18 | ED Physician Documentation ---
ED Addendum - Addendum Addendum: 02/24/20 14:16 Today social work was not able to place the patient in an adequate facility and arrangements have been made with administration for a admission to the hospital for this patient who is unable to care for herself and is in hospice. She has impulsive behaviors with her medications and needs medications to be administered. She is otherwise homeless.
[2020-02-24 16:10] LABS: BASOPHILS % (AUTO) 0.5 %; EOSINOPHILS % (AUTO) 0.5 %; HGB - HEMOGLOBIN 10.6 g/dL (12.0-16.0); LYMPHOCYTES # (AUTO) 2.7 10^3/uL (1.5-3.5); LYMPHOCYTES % (AUTO) 40.3 %; MEAN CORPUSCULAR HEMOGLOBIN 31.9 pg (27.0-31.0); MONOCYTES # (AUTO) 0.4 10^3/uL (0.0-1.0); MONOCYTES % (AUTO) 5.3 %; NEUTROPHILS # (AUTO) 3.5 10^3/uL (1.5-6.6); NEUTROPHILS % (AUTO) 53.1 %; PLT - PLATELET COUNT 402 10^3/uL (130-450); RED BLOOD COUNT 3.32 10^6/uL (4.20-5.40); RED CELL DISTRIBUTION WIDTH 14.6 % (12.0-15.0); WHITE BLOOD COUNT 6.6 x10^3/uL (4.8-10.8)
[2020-02-24 16:17] LABS: PT - PROTHROMBIN TIME 11.9 secs (9.9-12.6)
[2020-02-24 16:23] LABS: ALBUMIN 1.8 g/dL (3.2-5.5); ALBUMIN/GLOBULIN RATIO 0.4 (1.0-2.2); BILIRUBIN,TOTAL 0.7 mg/dL (0.2-1.0); CALCIUM 7.3 mg/dL (8.5-10.3); MAGNESIUM 1.1 mg/dL (1.7-2.8); TOTAL PROTEIN 6.3 g/dL (6.7-8.2)
--- NOTE | 2020-02-24 16:38 | HISTORY & PHYSICAL EXAMINATION ---
DATE OF SERVICE: 02/24/2020 Physician: Angela Dial MD HISTORY OF PRESENT ILLNESS: This is a 54-year-old white female who is homeless, has a history of diabetes, now weaned off of insulin because of multiple episodes of hypoglycemia, has a history of anxiety, gout, polysubstance abuse including heroin and methamphetamine, alcohol abuse history with prior pancreatitis, alcoholic cirrhosis of the liver followed by a Gastroenterology specialist, history of chronic cholelithiasis, splenic infarct, GERD, chronic abdominal pain and is on chronic opiates. She often presents to the Emergency Room with abdominal pain. She was recently here from 02/08/2020-02/09/2020 for abdominal pain and had workup of a dilated gallbladder, which was found to have stones and sludge but no acute cholecystitis. After that hospitalization, she was again hospitalized at [facility] from approx. to 02/17 for a pneumonia and (the discharge summary states) that due to chronic liver cirrhosis and failure to thrive, she was accepted by [facility] and continued to be homeless, living in various people's trailers. She was prescribed narcotics to use on Hospice service and was found sleepy, on the toilet for several hours in one of her friend's trailers and was brought to the Emergency Room after an ambulance was called. The ER was told that she had been prescribed narcotic medications by the Hospice service and she took many of these all at once and became somnolent. When she presented to the Emergency Room, which was 3 days ago, it was felt that she did not have a safe discharge. The Emergency Room doctor contacted the [facility] of [facility], who stated that because she came to the Emergency Room, she is no longer under their hospice service. Over these 3 days, Social Work has tried to obtain a safe discharge for her with long-term placement for prison care since she is not reliable to take medication safely and has been unable to do so. Our administration is agreeable to have this patient placed as an inpatient here on the Medical/Surgical Hospitalist team for general care while Social Work continues to work on placement. She told me, that she thinks her friends have probably taken all the new narcotic tablets by now. Over her 3 days in our ER, the patient has been receiving oxycodone, gabapentin and methadone scheduled and eating a regular diet, no longer on a carb- controlled diet or any oral diabetic meds. She has not had lab tests in the past 3 days. She thinks she fully awoke and can remember events since yesterday. PAST MEDICAL HISTORY: As described in paragraph one. ALLERGIES: MORPHINE. MEDICATIONS: 1. Allopurinol 100 mg daily. 2. Gabapentin 600 mg t.i.d. 3. Methadone 5 mg b.i.d. 4. Omeprazole 20 mg daily. FAMILY HISTORY: Noncontributory. SOCIAL HISTORY: As described in paragraph 1 and 2 and she smokes cigarettes. REVIEW OF SYSTEMS: A comprehensive review of systems was performed and the pertinent positives are all listed above; the rest are negative. She has many missing teeth. PHYSICAL EXAMINATION: GENERAL: White female who appears much older than her stated age. She is cachectic, has tanned, leathery, wrinkled skin and is alert and oriented. VITAL SIGNS: Blood pressure 138/96, pulse of 88 in sinus rhythm, afebrile, room air saturation 99%. HEENT: Shows possible scleral icterus, moist oral mucosa, edentulous mouth. Her skin is tanned and very wrinkled and leathery. NECK: Without JVD. LUNGS: Clear with scattered rhonchi. HEART: Normal heart sounds without murmur. ABDOMEN: Soft, mildly distended, nontender. EXTREMITIES: No edema. Multiple skin tears and bruises of upper and lower extremities. NEUROLOGIC: Grossly intact. There is no liver flap. LABORATORY DATA: None. EKG: None. IMAGING: None. IMPRESSION/DIAGNOSES 1. Failure to thrive. 2. At risk for unsafe behavior (unsafe discharge). 3. Alcoholic liver cirrhosis 4. Opiate use. There is a form in this medical record indicating that she should not be discharged on any new narcotic medications. 5. Chronic pain. 6. Diabetes mellitus. 7. Homeless. PLAN: Place the patient in inpatient status on Med/Surg floor. Continue with prison care including her diet, which will be Regular, her scheduled pain medications and methadone. Obtain a set of standard admission lab tests. Social Work consult for continued attempts at permanent placement will be requested. No telemetry or saline-lock iv is needed. DEEP VENOUS PROPHYLAXIS: Pharmacotherapy with Lovenox is planned unless the platelet count is low or INR is elevated. CODE STATUS: DNR. ATTESTATION: The patient is expected to be discharged or transferred to another facility within 96 hours: Yes. cc: Lalit Horne MD TD: 02/24/2020 16:12 MTDFran
[2020-02-24] MEDS: CALCIUM CARBONATE CHEW 500 MG TABLET PO PRN (17:07)
[2020-02-24] MEDS: NICOTINE 14 MG PATCH TOP SCH (17:09)
[2020-02-24] MEDS ORDERED: FAMOTIDINE 20 MG TABLET PO SCH (21:00)
[2020-02-24] MEDS: GABAPENTIN 300 MG CAPSULE PO SCH (21:08)
[2020-02-25] MEDS: ONDANSETRON ODT 4 MG TABLET TL PRN ×2 (02:39→09:25)
[2020-02-25] MEDS: oxyCODONE 5 MG TABLET PO PRN ×4 (04:03→17:17)
[2020-02-25] MEDS: GABAPENTIN 300 MG CAPSULE PO SCH ×3 (05:45→21:01)
[2020-02-25 07:19] LABS: BASOPHILS # (AUTO) 0.1 10^3/uL (0.0-0.1); BASOPHILS % (AUTO) 0.7 %; EOSINOPHILS # (AUTO) 0.1 10^3/uL (0.0-0.7); EOSINOPHILS % (AUTO) 0.8 %; HGB - HEMOGLOBIN 9.4 g/dL (12.0-16.0); LYMPHOCYTES # (AUTO) 2.9 10^3/uL (1.5-3.5); LYMPHOCYTES % (AUTO) 40.6 %; MEAN CORPUSCULAR HEMOGLOBIN 31.1 pg (27.0-31.0); MEAN CORPUSCULAR HGB CONC 33.2 g/dL (32.0-36.0); MEAN CORPUSCULAR VOLUME 93.7 fL (81.0-99.0); MEAN PLATELET VOLUME 10.8 fL (7.9-10.8); MONOCYTES # (AUTO) 0.4 10^3/uL (0.0-1.0); MONOCYTES % (AUTO) 5.1 %; NEUTROPHILS # (AUTO) 3.8 10^3/uL (1.5-6.6); NEUTROPHILS % (AUTO) 52.4 %; PLT - PLATELET COUNT 389 10^3/uL (130-450); RED BLOOD COUNT 3.02 10^6/uL (4.20-5.40); RED CELL DISTRIBUTION WIDTH 14.5 % (12.0-15.0); WHITE BLOOD COUNT 7.2 x10^3/uL (4.8-10.8)
[2020-02-25 07:35] LABS: CALCIUM 7.5 mg/dL (8.5-10.3); CREATININE 0.9 mg/dL (0.4-1.0)
[2020-02-25] MEDS ORDERED: SENNA 8.6 MG TABLET PO PRN (08:33)
[2020-02-25] MEDS: MULTIVITAMIN W/MINERALS TABLET PO SCH (09:23)
[2020-02-25] MEDS: allopurinoL 100 MG TABLET PO SCH (09:23)
[2020-02-25] MEDS: LORazepam 0.5 MG TABLET PO PRN ×3 (09:25→18:25)
[2020-02-25] MEDS: METHADONE 5 MG TABLET PO SCH ×2 (09:26→20:26)
[2020-02-25] MEDS: NICOTINE 14 MG PATCH TOP SCH (09:26)
[2020-02-25] MEDS: ENOXAPARIN 40 MG/0.4 ML SYRINGE SUBQ SCH (09:26)
[2020-02-25] MEDS: MAGNESIUM OXIDE 400 MG TABLET PO SCH (09:26)
--- NOTE | 2020-02-25 10:43 | PHARMACY PROGRESS NOTE ---
- Best Possible Medication History Admit Date and Time: 02/24/20 1423 Processed by: Pharmacy Medication History completed: Yes (COMPLETED BY PHARMACIST -) Secondary Source(s): Previous admit records (HOMELESS PATIENT) As the person ultimately responsible for medication therapy, providers are able to order a medication from an existing home medication list in [facility] via the "Reconcile Routine" prior to Confirmation of that medication by direct support professional caregiver. Such practice is discouraged except when the physician, in their clinical judgment, deems that a medical need exists for a medication without regard to previous use.
--- NOTE | 2020-02-25 11:57 | PROVIDER PROGRESS NOTE ---
Assessment/Plan - Problem List (1) FTT (failure to thrive) in adult Assessment/Plan: She was on [facility]ospice of , who discharged her when she entered our ER on Fri02/21/20. Continue "comfort care". Hospice referral sent. She will work consult officially requested for finding her placement. She is not on telemetry, does not have a peripheral IV, no saline lock flushes are necessary. She has a DNR status. (2) At risk for unsafe behavior Assessment/Plan: There have been multiple episodes of excessive narcotic use and obtundation. When she was discharged with 1 week of narcotic, anxiolytics to live with friend, she ingested excessive amounts of those and presented obtunded. She is aware that she will need long-term placement for skilled nursing care. (3) Severe protein-calorie malnutrition Assessment/Plan: Since her last admission here, she has gone from 44 kg to 38 kg. She has a homeless situation. She is no longer on diabetic diet, she would like to choose "any type of food because she is on comfort care". We will cover her high sugars with sliding scale insulin (4) Anemia Assessment/Plan: This is possibly anemia of chronic disease plus nutritional deficiencies. Will assess her B12, folate levels and iron stores and replace if low. (5) Alcoholic cirrhosis of liver Assessment/Plan: As per history. She does not have a tense or very distended abdomen. She has adequate synthetic function of her liver, INR is normal at 1.0 and LFTs are normal. He has no signs of asterixis or confusion to warrant following the ammonia level or ordering lactulose (6) Opiate use Assessment/Plan: She is on chronic doses of this and methadone. We will continue once her meds are reconciled. (7) Chronic pain Assessment/Plan: As per history. One of her main recurrent complaints was abdominal pain causing many ER visits here. She has gallstones but no cholecystitis. (8) Diabetes mellitus with hyperglycemia Qualifiers: Diabetes mellitus type: type 2 Diabetes mellitus halfway insulin use: wit h inker and opaquer use Qualified Code(s): E11.65 - Type 2 diabetes mellitus with hyperglycemia; Z79.4 - gas torch solderer (current) use of insulin Assessment/Plan: She has had prior history of hypoglycemia when she was on Lantus, regular insulin and oral agents. Over many months these have been weaned down to off. On hospice she is already on a regular diet for comfort. We will cover her finger stick glucose checks with sliding scale insulin. Will avoid Lantus because it caused hypoglycemia in the recent past. (9) Homeless Assessment/Plan: As per hx. - Current Meds Current Meds: Current Medications Generic Name Dose Route Start Last Admin Trade Name Freq PRN Reason Stop Dose Admin Allopurinol 100 mg 02/25/20 09:00 02/25/20 09:23 Zyloprim PO 100 mg DAILY BRENDON Administration Calcium Carbonate/Glycine 500 mg 02/24/20 16:25 02/24/20 17:07 Tums PO 500 mg TID PRN Administration Heartburn Enoxaparin Sodium 40 mg 02/25/20 09:00 02/25/20 09:26 Lovenox SUBQ 40 mg DAILY BRENDON Administration Gabapentin 600 mg 02/24/20 22:00 02/25/20 05:45 Neurontin PO 600 mg TID BRENDON Administration Lorazepam 0.5 mg 02/25/20 08:31 02/25/20 09:25 Ativan PO 0.5 mg Q4H PRN Administration Anxiety Magnesium Oxide 400 mg 02/25/20 09:00 02/25/20 09:26 Mag Ox PO 400 mg DAILYWM BRENDON Administration Methadone HCl 5 mg 02/24/20 21:00 02/25/20 09:26 PO 5 mg BID BRENDON Administration Multivitamins/Minerals 1 tab 02/25/20 09:00 02/25/20 09:23 Theragran M PO 1 tab DAILYWM BRENDON Administration Nicotine 1 patch 02/24/20 17:00 02/25/20 09:26 Nicoderm TOP 1 patch DAILY BRENDON Administration Ondansetron HCl 4 mg 02/25/20 00:57 02/25/20 09:25 Zofran Odt TL 4 mg Q4HR PRN Administration Nausea / Vomiting Oxycodone HCl 5 mg 02/24/20 15:54 02/25/20 09:24 Roxicodone PO 5 mg Q4HR PRN Administration PAIN - Lab Result Fish Bone Diagrams: 02/25/20 07:10 02/25/20 07:10 - Additional Planning My Orders: My Active Orders 02/24/20 14:25 Activity Orders [RC] Q2HR IO [RC] IOSHIFT Initiate Bowel Care Protocol [RC] .protocol Initiate Personal Care Protoco [RC] .protocol Oxygen Therapy [RC] .PRN Vital Signs [RC] 0800,1600,0000 Code Status [OTHERS] Routine Condition of Patient [OTHERS] Routine DVT Prophylaxis [OTHERS] Routine 02/24/20 14:27 Social Work Consult [CONS] Routine 02/24/20 15:54 oxyCODONE [Roxicodone] 5 mg PO Q4HR PRN 02/24/20 Dinner Regular Diet [DIET] 02/24/20 16:25 Daily Weight [RC] 0600 Calcium Carbonate [Tums] 500 mg PO TID PRN 02/24/20 16:26 Miscellaenous Nursing Order [RC] DAILY 02/24/20 16:27 Miscellaenous Nursing Order [RC] ONCE 02/24/20 17:00 Nicotine 14 mg Patch [Nicoderm] 1 patch TOP DAILY 02/24/20 17:34 Min Oil/Dimeth/Coconut Oil Crm [Cavilon] 1 applic TOP PRN PRN 02/24/20 21:00 Methadone 5 mg PO BID 02/24/20 22:00 Gabapentin [Neurontin] 600 mg PO TID 02/25/20 Hospice Referral [CONS] Routine 02/25/20 08:31 LORazepam [Ativan] 0.5 mg PO Q4H PRN 02/25/20 08:33 Senna [Senokot] 8.6 mg PO BID PRN 02/25/20 09:00 Enoxaparin [Lovenox] 40 mg SUBQ DAILY Magnesium Oxide [Mag Ox] 400 mg PO DAILYWM Multivitamin W/Minerals [Theragran M] 1 tab PO DAILYWM allopurinoL [Zyloprim] 100 mg PO DAILY 02/25/20 09:10 Famotidine [Pepcid] 20 mg PO DAILY 02/25/20 11:42 Blood Glucose Checks - Eating [RC] 0800,1200,1700,2100 Initiate Hypoglycemia Protocol [RC] .protocol 02/25/20 12:00 Insulin Aspart [NovoLOG] 1 - 5 unit SUBQ 0800,1200,1700,2100 02/26/20 05:00 MAGNESIUM [CHEM] DAILYLAB Subjective - Subjective Patient Reports: Resting Comfortably Objective Vital Signs: Vital Signs - 24 hr 02/24/20 02/25/20 02/25/20 15:50 00:00 05:54 Temperature 36.4 C L 36.7 C 36.7 C Heart Rate 79 Heart Rate [ 79 Brachial] Heart Rate [ 88 Radial] Respiratory 12 16 16 Rate Blood Pressure 138/96 H [Left Brachial artery] Blood Pressure 133/89 H [Right Brachial artery] O2 Saturation 99 100 100 02/25/20 08:00 Temperature 36.6 C Heart Rate Heart Rate [ 79 Brachial] Heart Rate [ Radial] Respiratory Rate Blood Pressure [Left Brachial artery] Blood Pressure 144/78 H [Right Brachial artery] O2 Saturation 98 Oxygen O2 Source Room air I&O (Last 24 Hrs): Intake and Output Totals x24h 02/23/20 02/24/20 02/25/20 23:59 23:59 23:59 Intake Total 800 240 880 Output Total 1200 1200 Balance -400 -960 880 General: Alert, Oriented x3 HEENT: Mucous membr. moist/pink, Other (Cachectic) Neck: Supple Neuro: Alert, Non Focal Cardiovascular: Regular rate Respiratory: No respiratory distress Abdomen: Soft Extremities: No edema, Other (Mult skin tears and bruises) - Results Results: Laboratory Results WBC 7.2 x10^3/uL (4.8-10.8) 02/25/20 07:10 RBC 3.02 10^6/uL (4.20-5.40) L 02/25/20 07:10 Hgb 9.4 g/dL (12.0-16.0) L 02/25/20 07:10 Hct 28.3 % (37.0-47.0) L 02/25/20 07:10 MCV 93.7 fL (81.0-99.0) 02/25/20 07:10 MCH 31.1 pg (27.0-31.0) H 02/25/20 07:10 MCHC 33.2 g/dL (32.0-36.0) 02/25/20 07:10 RDW 14.5 % (12.0-15.0) 02/25/20 07:10 Plt Count 389 10^3/uL (130-450) 02/25/20 07:10 MPV 10.8 fL (7.9-10.8) 02/25/20 07:10 Neut # (Auto) 3.8 10^3/uL (1.5-6.6) 02/25/20 07:10 Lymph # (Auto) 2.9 10^3/uL (1.5-3.5) 02/25/20 07:10 [place] # (Auto) 0.4 10^3/uL (0.0-1.0) 02/25/20 07:10 Eos # (Auto) 0.1 10^3/uL (0.0-0.7) 02/25/20 07:10 Baso # (Auto) 0.1 10^3/uL (0.0-0.1) 02/25/20 07:10 Absolute Nucleated RBC 0.00 x10^3/uL 02/25/20 07:10 Nucleated RBC % 0.0 /100WBC 02/25/20 07:10 PT 11.9 secs (9.9-12.6) 02/24/20 16:03 INR 1.0 (0.8-1.2) 02/24/20 16:03 Sodium 129 mmol/L (135-145) L 02/25/20 07:10 Potassium 4.2 mmol/L (3.5-5.0) 02/25/20 07:10 Chloride 92 mmol/L (101-111) L 02/25/20 07:10 Carbon Dioxide 30 mmol/L (21-32) 02/25/20 07:10 Anion Gap 7.0 (6-13) 02/25/20 07:10 BUN 11 mg/dL (6-20) 02/25/20 07:10 Creatinine 0.9 mg/dL (0.4-1.0) 02/25/20 07:10 Estimated GFR (MDRD) 66 (>89) L 02/25/20 07:10 Glucose 328 mg/dL (70-100) H 02/25/20 07:10 Calcium 7.5 mg/dL (8.5-10.3) L 02/25/20 07:10 Magnesium 1.3 mg/dL (1.7-2.8) L 02/25/20 07:10 Total Bilirubin 0.7 mg/dL (0.2-1.0) 02/24/20 16:03 AST 32 IU/L (10-42) 02/24/20 16:03 ALT 36 IU/L (10-60) 02/24/20 16:03 Alkaline Phosphatase 627 IU/L (42-121) H 02/24/20 16:03 Total Protein 6.3 g/dL (6.7-8.2) L 02/24/20 16:03 Albumin 1.8 g/dL (3.2-5.5) L 02/24/20 16:03 Globulin 4.5 g/dL (2.1-4.2) H 02/24/20 16:03 Albumin/Globulin Ratio 0.4 (1.0-2.2) L 02/24/20 16:03 Coronavirus (PCR) NEGATIVE 02/21/20 14:40 - Procedures Procedures: Procedures INSERTION OF INFUSION DEV INTO SUP VENA CAVA, PERC APPROACH (08/12/18)
[2020-02-25] MEDS ORDERED: INSULIN ASPART 300 UNIT/3 ML PEN SUBQ SCH ×2 (12:00)
[2020-02-25] MEDS: INSULIN ASPART 300 UNIT/3 ML PEN SUBQ SCH ×3 (13:09→20:47)
[2020-02-25] MEDS: CALCIUM CARBONATE CHEW 500 MG TABLET PO PRN (21:01)
[2020-02-26] MEDS: LORazepam 0.5 MG TABLET PO PRN ×5 (00:24→18:39)
[2020-02-26] MEDS: oxyCODONE 5 MG TABLET PO PRN ×7 (00:24→21:17)
[2020-02-26 04:58] LABS: BASOPHILS # (AUTO) 0.1 10^3/uL (0.0-0.1); BASOPHILS % (AUTO) 0.8 %; EOSINOPHILS # (AUTO) 0.1 10^3/uL (0.0-0.7); EOSINOPHILS % (AUTO) 0.7 %; HGB - HEMOGLOBIN 8.8 g/dL (12.0-16.0); LYMPHOCYTES % (AUTO) 41.6 %; MEAN CORPUSCULAR HEMOGLOBIN 31.3 pg (27.0-31.0); MEAN CORPUSCULAR HGB CONC 33.3 g/dL (32.0-36.0); MEAN PLATELET VOLUME 10.8 fL (7.9-10.8); MONOCYTES # (AUTO) 0.5 10^3/uL (0.0-1.0); MONOCYTES % (AUTO) 7.5 %; NEUTROPHILS # (AUTO) 3.5 10^3/uL (1.5-6.6); PLT - PLATELET COUNT 388 10^3/uL (130-450); RED BLOOD COUNT 2.81 10^6/uL (4.20-5.40); RED CELL DISTRIBUTION WIDTH 14.3 % (12.0-15.0); WHITE BLOOD COUNT 7.2 x10^3/uL (4.8-10.8)
[2020-02-26 05:31] LABS: FOLATE 9.14 ng/mL (5.90 - >24.8)
[2020-02-26 05:37] LABS: CALCIUM 7.5 mg/dL (8.5-10.3); CREATININE 0.9 mg/dL (0.4-1.0); MAGNESIUM 1.2 mg/dL (1.7-2.8)
[2020-02-26] MEDS: GABAPENTIN 300 MG CAPSULE PO SCH ×3 (06:23→21:20)
[2020-02-26] MEDS: INSULIN ASPART 300 UNIT/3 ML PEN SUBQ SCH ×4 (08:21→21:21)
[2020-02-26] MEDS: NICOTINE 14 MG PATCH TOP SCH (08:21)
[2020-02-26] MEDS: MULTIVITAMIN W/MINERALS TABLET PO SCH (08:23)
[2020-02-26] MEDS: FAMOTIDINE 20 MG TABLET PO SCH (08:24)
[2020-02-26] MEDS: ENOXAPARIN 40 MG/0.4 ML SYRINGE SUBQ SCH (08:24)
[2020-02-26] MEDS: MAGNESIUM OXIDE 400 MG TABLET PO SCH (08:24)
[2020-02-26] MEDS: allopurinoL 100 MG TABLET PO SCH (08:24)
[2020-02-26] MEDS: METHADONE 5 MG TABLET PO SCH ×2 (08:24→21:17)
--- NOTE | 2020-02-26 10:47 | PROVIDER PROGRESS NOTE ---
Assessment/Plan - Problem List (1) FTT (failure to thrive) in adult Assessment/Plan: She was on Hospice of , who discharged her when she entered our ER on Fri02/21/20. A new Hospice referral sent. Social Work consult officially requested for finding her placement. She is not on telemetry, does not have a peripheral IV, no saline lock flushes are necessary. She has a DNR status. (2) At risk for unsafe behavior Assessment/Plan: There have been multiple episodes of excessive narcotic use and obtundation. When she was discharged from [facility] recently, under Hospice Care with 1 week of narcotic and anxiolytics to live with friend, she ingested excessive amounts of those and presented obtunded. She is aware that she will need long-term placement for shelter care. (3) Severe protein-calorie malnutrition Assessment/Plan: Since her last admission here, she has gone from 44 kg to 38 kg. She has a homeless situation. She is no longer on diabetic diet, she would like to choose "any type of food because she is on comfort care". We will reorder the bid Lantus 5U, and cover her high sugars with sliding scale insulin (4) Anemia Qualifiers: Anemia type: iron deficiency Assessment/Plan: This is possibly anemia of chronic disease plus nutritional deficiencies. The B12, folate levels are normal, but iron stores show low. Will start oral iron. (5) Alcoholic cirrhosis of liver Assessment/Plan: As per history. She does not have a tense or very distended abdomen. She has adequate synthetic function of her liver since INR is normal at 1.0 and LFTs are normal. She has no signs of asterixis or confusion to warrant following the ammonia level or ordering Lactulose (6) Opiate use Assessment/Plan: She is on chronic doses of this and methadone. We will continue, but not at hourly doses as in a pt who is actively dieing (7) Chronic pain Assessment/Plan: As per history. One of her main recurrent complaints was abdominal pain causing many ER visits here. She has gallstones but no cholecystitis. 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 Over many months these have been weaned down to off. On Hospice she was already on a Regular diet for "comfort". Glu running high-200's. Will resume ther Lantus 5U bid. We will cover her finger stick glucose checks with sliding scale insulin. (9) Homeless Assessment/Plan: As per Hx. - Current Meds Current Meds: Current Medications Generic Name Dose Route Start Last Admin Trade Name Freq PRN Reason Stop Dose Admin Allopurinol 100 mg 02/25/20 09:00 02/26/20 08:24 Zyloprim PO 100 mg DAILY BRENDON Administration Calcium Carbonate/Glycine 500 mg 02/24/20 16:25 02/25/20 21:01 Tums PO 500 mg TID PRN Administration Heartburn Enoxaparin Sodium 40 mg 02/25/20 09:00 02/26/20 08:24 Lovenox SUBQ 40 mg DAILY BRENDON Administration Famotidine 20 mg 02/25/20 09:10 02/26/20 08:24 Pepcid PO 20 mg DAILY BRENDON Administration Gabapentin 600 mg 02/24/20 22:00 02/26/20 06:23 Neurontin PO 600 mg TID BRENDON Administration Insulin Aspart 2 - 10 unit 02/26/20 08:00 02/26/20 08:21 Novolog SUBQ 8 unit 0800,1200,1700,2100 BRENDON Administration Protocol Lorazepam 0.5 mg 02/25/20 17:09 02/26/20 06:24 Ativan PO 0.5 mg Q3H PRN Administration Anxiety Magnesium Oxide 400 mg 02/25/20 09:00 02/26/20 08:24 Mag Ox PO 400 mg DAILYWM BRENDON Administration Methadone HCl 5 mg 02/24/20 21:00 02/26/20 08:24 PO 5 mg BID BRENDON Administration Multivitamins/Minerals 1 tab 02/25/20 09:00 02/26/20 08:23 Theragran M PO 1 tab DAILYWM BRENDON Administration Nicotine 1 patch 02/24/20 17:00 02/26/20 08:21 Nicoderm TOP 1 patch DAILY BRENDON Administration Ondansetron HCl 4 mg 02/25/20 00:57 02/25/20 09:25 Zofran Odt TL 4 mg Q4HR PRN Administration Nausea / Vomiting Oxycodone HCl 5 mg 02/25/20 17:10 02/26/20 06:24 Roxicodone PO 5 mg Q2HR PRN Administration PAIN - Lab Result Fish Bone Diagrams: 02/26/20 04:45 02/26/20 04:45 - Additional Planning My Orders: My Active Orders 02/25/20 11:42 Blood Glucose Checks - Eating [RC] 0800,1200,1700,2100 Initiate Hypoglycemia Protocol [RC] .protocol 02/25/20 17:09 LORazepam [Ativan] 0.5 mg PO Q3H PRN 02/25/20 17:10 oxyCODONE [Roxicodone] 5 mg PO Q2HR PRN 02/26/20 08:00 Insulin Aspart [NovoLOG] 2 - 10 unit SUBQ 0800,1200,1700,2100 02/26/20 08:04 Miscellaenous Nursing Order [RC] QSHIFT 02/26/20 11:00 Insulin Glargine [Lantus Solostar] 5 unit SUBQ BID Subjective - Subjective Patient Reports: Resting Comfortably, No Complaints Objective Vital Signs: Vital Signs - 24 hr 02/25/20 02/26/20 02/26/20 15:35 00:00 07:34 Temperature 36.7 C 36.7 C 36.6 C Heart Rate [ 90 76 71 Brachial] Respiratory 18 17 16 Rate Blood Pressure 135/84 H [Left Brachial artery] Blood Pressure 110/62 120/75 [Right Brachial artery] O2 Saturation 97 99 100 Oxygen O2 Source Room air I&O (Last 24 Hrs): Intake and Output Totals x24h 02/24/20 02/25/20 02/26/20 23:59 23:59 23:59 Intake Total 240 2160 1160 Output Total 1200 600 Balance -960 1560 1160 General: Alert, Oriented x3 HEENT: Mucous membr. moist/pink, Other (Cachectic) Neck: No JVD Neuro: Alert, Non Focal Cardiovascular: Regular rate Respiratory: No respiratory distress Abdomen: Soft Extremities: No edema - Results Results: Laboratory Results WBC 7.2 x10^3/uL (4.8-10.8) 02/26/20 04:45 RBC 2.81 10^6/uL (4.20-5.40) L 02/26/20 04:45 Hgb 8.8 g/dL (12.0-16.0) L 02/26/20 04:45 Hct 26.4 % (37.0-47.0) L 02/26/20 04:45 MCV 94.0 fL (81.0-99.0) 02/26/20 04:45 MCH 31.3 pg (27.0-31.0) H 02/26/20 04:45 MCHC 33.3 g/dL (32.0-36.0) 02/26/20 04:45 RDW 14.3 % (12.0-15.0) 02/26/20 04:45 Plt Count 388 10^3/uL (130-450) 02/26/20 04:45 MPV 10.8 fL (7.9-10.8) 02/26/20 04:45 Neut # (Auto) 3.5 10^3/uL (1.5-6.6) 02/26/20 04:45 Lymph # (Auto) 3.0 10^3/uL (1.5-3.5) 02/26/20 04:45 [place] # (Auto) 0.5 10^3/uL (0.0-1.0) 02/26/20 04:45 Eos # (Auto) 0.1 10^3/uL (0.0-0.7) 02/26/20 04:45 Baso # (Auto) 0.1 10^3/uL (0.0-0.1) 02/26/20 04:45 Absolute Nucleated RBC 0.00 x10^3/uL 02/26/20 04:45 Nucleated RBC % 0.0 /100WBC 02/26/20 04:45 PT 11.9 secs (9.9-12.6) 02/24/20 16:03 INR 1.0 (0.8-1.2) 02/24/20 16:03 Sodium 129 mmol/L (135-145) L 02/26/20 04:45 Potassium 4.1 mmol/L (3.5-5.0) 02/26/20 04:45 Chloride 95 mmol/L (101-111) L 02/26/20 04:45 Carbon Dioxide 28 mmol/L (21-32) 02/26/20 04:45 Anion Gap 6.0 (6-13) 02/26/20 04:45 BUN 14 mg/dL (6-20) 02/26/20 04:45 Creatinine 0.9 mg/dL (0.4-1.0) 02/26/20 04:45 Estimated GFR (MDRD) 66 (>89) L 02/26/20 04:45 Glucose 366 mg/dL (70-100) H 02/26/20 04:45 Calcium 7.5 mg/dL (8.5-10.3) L 02/26/20 04:45 Magnesium 1.2 mg/dL (1.7-2.8) L 02/26/20 04:45 Iron 78 ug/dL (28-170) 02/26/20 04:45 TIBC 132 ug/dL (250-450) L 02/26/20 04:45 % Saturation 59 % (20-50) H 02/26/20 04:45 Transferrin 94 mg/dL (192-382) L 02/26/20 04:45 Total Bilirubin 0.7 mg/dL (0.2-1.0) 02/24/20 16:03 AST 32 IU/L (10-42) 02/24/20 16:03 ALT 36 IU/L (10-60) 02/24/20 16:03 Alkaline Phosphatase 627 IU/L (42-121) H 02/24/20 16:03 Total Protein 6.3 g/dL (6.7-8.2) L 02/24/20 16:03 Albumin 1.8 g/dL (3.2-5.5) L 02/24/20 16:03 Globulin 4.5 g/dL (2.1-4.2) H 02/24/20 16:03 Albumin/Globulin Ratio 0.4 (1.0-2.2) L 02/24/20 16:03 Vitamin B12 3526 pg/mL (180-914) H 02/26/20 04:45 Folate 9.14 ng/mL (5.90 - >24.8) 02/26/20 04:45 Coronavirus (PCR) NEGATIVE 02/21/20 14:40 - Procedures Procedures: Procedures INSERTION OF INFUSION DEV INTO SUP VENA CAVA, PERC APPROACH (08/12/18)
[2020-02-26] MEDS: INSULIN GLARGINE 300 UNIT/3 ML PEN SUBQ SCH ×2 (11:40→21:20)
[2020-02-26] MEDS: FERROUS GLUCONATE 324 MG TABLET PO SCH (11:40)
[2020-02-26] MEDS: ONDANSETRON ODT 4 MG TABLET TL PRN (16:09)
[2020-02-27] MEDS: oxyCODONE 5 MG TABLET PO PRN ×6 (00:07→19:30)
[2020-02-27] MEDS: LORazepam 0.5 MG TABLET PO PRN ×6 (00:08→19:30)
[2020-02-27 05:23] LABS: BASOPHILS # (AUTO) 0.1 10^3/uL (0.0-0.1); BASOPHILS % (AUTO) 0.6 %; EOSINOPHILS # (AUTO) 0.1 10^3/uL (0.0-0.7); EOSINOPHILS % (AUTO) 0.5 %; HGB - HEMOGLOBIN 8.2 g/dL (12.0-16.0); LYMPHOCYTES # (AUTO) 3.9 10^3/uL (1.5-3.5); LYMPHOCYTES % (AUTO) 41.5 %; MEAN CORPUSCULAR HEMOGLOBIN 32.3 pg (27.0-31.0); MEAN CORPUSCULAR HGB CONC 34.5 g/dL (32.0-36.0); MEAN CORPUSCULAR VOLUME 93.7 fL (81.0-99.0); MEAN PLATELET VOLUME 10.9 fL (7.9-10.8); MONOCYTES # (AUTO) 0.7 10^3/uL (0.0-1.0); MONOCYTES % (AUTO) 7.3 %; NEUTROPHILS # (AUTO) 4.6 10^3/uL (1.5-6.6); NEUTROPHILS % (AUTO) 49.5 %; PLT - PLATELET COUNT 382 10^3/uL (130-450); RED BLOOD COUNT 2.54 10^6/uL (4.20-5.40); RED CELL DISTRIBUTION WIDTH 14.6 % (12.0-15.0); WHITE BLOOD COUNT 9.4 x10^3/uL (4.8-10.8)
[2020-02-27 05:32] LABS: CALCIUM 7.3 mg/dL (8.5-10.3); CREATININE 0.9 mg/dL (0.4-1.0)
[2020-02-27] MEDS: GABAPENTIN 300 MG CAPSULE PO SCH ×3 (06:47→21:32)
[2020-02-27] MEDS: MAGNESIUM OXIDE 400 MG TABLET PO SCH (08:35)
[2020-02-27] MEDS: FAMOTIDINE 20 MG TABLET PO SCH (08:35)
[2020-02-27] MEDS: FERROUS GLUCONATE 324 MG TABLET PO SCH (08:35)
[2020-02-27] MEDS: ENOXAPARIN 40 MG/0.4 ML SYRINGE SUBQ SCH (08:35)
[2020-02-27] MEDS: METHADONE 5 MG TABLET PO SCH ×2 (08:35→20:15)
[2020-02-27] MEDS: NICOTINE 14 MG PATCH TOP SCH (08:35)
[2020-02-27] MEDS: allopurinoL 100 MG TABLET PO SCH (08:35)
[2020-02-27] MEDS: MULTIVITAMIN W/MINERALS TABLET PO SCH (08:35)
[2020-02-27] MEDS: INSULIN ASPART 300 UNIT/3 ML PEN SUBQ SCH ×4 (08:36→21:33)
[2020-02-27] MEDS ORDERED: INSULIN GLARGINE 300 UNIT/3 ML PEN SUBQ SCH (09:00)
[2020-02-27] MEDS ORDERED: POTASSIUM CHLORIDE 20 MEQ TABLET PO ONE ×2 (09:00→14:00)
--- NOTE | 2020-02-27 16:44 | PROVIDER PROGRESS NOTE ---
Assessment/Plan - Problem List (1) FTT (failure to thrive) in adult Assessment/Plan: She was homeless, cachectic, made poor decisions with risky behavior such as frequent excessive narcotic and benzo use. She was accepted by [facility], this was discontinued when she became an ER patient here on 02/21/2020. Now she is in observation, social work is working on placement. A new hospice referral was sent (2) At risk for unsafe behavior Assessment/Plan: As described in #1 (3) Severe protein-calorie malnutrition Assessment/Plan: As described in #1 (4) Anemia Qualifiers: Anemia type: iron deficiency Assessment/Plan: Oral iron replacement ordered (5) Alcoholic cirrhosis of liver Assessment/Plan: Stable LFTs. She does have mild ascites. (6) Opiate use Assessment/Plan: She is on opiates for pain control but also on methadone (7) Chronic pain Assessment/Plan: As above in #6, her c/o pain is mostly abdominal (8) Diabetes mellitus with hyperglycemia Qualifiers: Diabetes mellitus type: type 2 Diabetes mellitus shelter insulin use: with shelter use Qualified Code(s): E11.65 - Type 2 diabetes mellitus with hyperglycemia; Z79.4 - longterm (current) use of insulin Assessment/Plan: After she went on a regular diet, went on hospice service, her serum glucoses were in the 300-400 range. Her sliding scale had to be escalated. Yesterday Lantus was resumed at 5 units subcu twice daily. This morning her serum glucose is 100s. This patient has a history of hypoglycemia over the previous months that have caused the NPH and regular insulin to be eventually weaned to off. Will change order to just Lantus 3 units subcu every night, cont ss Insulin (9) Homeless Assessment/Plan: As per history. - Current Meds Current Meds: Current Medications Generic Name Dose Route Start Last Admin Trade Name Freq PRN Reason Stop Dose Admin Allopurinol 100 mg 02/25/20 09:00 02/27/20 08:35 Zyloprim PO 100 mg DAILY BRENDON Administration Calcium Carbonate/Glycine 500 mg 02/24/20 16:25 02/25/20 21:01 Tums PO 500 mg TID PRN Administration Heartburn Enoxaparin Sodium 40 mg 02/25/20 09:00 02/27/20 08:35 Lovenox SUBQ 40 mg DAILY BRENDON Administration Famotidine 20 mg 02/25/20 09:10 02/27/20 08:35 Pepcid PO 20 mg DAILY BRENDON Administration Ferrous Gluconate 324 mg 02/26/20 12:00 02/27/20 08:35 Fergon PO 324 mg DAILYWM BRENDON Administration Gabapentin 600 mg 02/24/20 22:00 02/27/20 14:11 Neurontin PO 600 mg TID BRENDON Administration Insulin Aspart 2 - 10 unit 02/26/20 08:00 02/27/20 12:17 Novolog SUBQ 2 unit 0800,1200,1700,2100 BRENDON Administration Protocol Lorazepam 0.5 mg 02/25/20 17:09 02/27/20 16:17 Ativan PO 0.5 mg Q3H PRN Administration Anxiety Magnesium Oxide 400 mg 02/25/20 09:00 02/27/20 08:35 Mag Ox PO 400 mg DAILYWM BRENDON Administration Methadone HCl 5 mg 02/24/20 21:00 02/27/20 08:35 PO 5 mg BID BRENDON Administration Multivitamins/Minerals 1 tab 02/25/20 09:00 02/27/20 08:35 Theragran M PO 1 tab DAILYWM BRENDON Administration Nicotine 1 patch 02/24/20 17:00 02/27/20 08:35 Nicoderm TOP 1 patch DAILY BRENDON Administration Ondansetron HCl 4 mg 02/25/20 00:57 02/26/20 16:09 Zofran Odt TL 4 mg Q4HR PRN Administration Nausea / Vomiting Oxycodone HCl 5 mg 02/25/20 17:10 02/27/20 16:17 Roxicodone PO 5 mg Q2HR PRN Administration PAIN - Lab Result Fish Bone Diagrams: 02/27/20 04:50 02/27/20 04:50 - Additional Planning My Orders: My Active Orders 02/27/20 12:35 MISC TEST QUEST AMBIENT [REFLAB] Routine 02/27/20 18:00 POTASSIUM [CHEM] Timed 02/27/20 21:00 Insulin Glargine [Lantus Solostar] 3 unit SUBQ QPM 02/28/20 05:00 BMP - BASIC METABOLIC PANEL [CHEM] DAILYLAB MAGNESIUM [CHEM] DAILYLAB Subjective - Subjective Patient Reports: Resting Comfortably Nursing Reports: Other (Hold the nurse this morning that she might leave AMA but never did.) Objective Vital Signs: Vital Signs - 24 hr 02/26/20 02/27/20 02/27/20 23:45 03:26 07:25 Temperature 36.8 C 36.7 C 36.7 C Heart Rate [ 98 87 81 Brachial] Respiratory 16 18 18 Rate Blood Pressure 113/78 127/76 [Left Brachial artery] Blood Pressure 123/75 [Right Brachial artery] O2 Saturation 98 95 100 02/27/20 15:50 Temperature 36.8 C Heart Rate [ 87 Brachial] Respiratory 18 Rate Blood Pressure [Left Brachial artery] Blood Pressure 128/71 [Right Brachial artery] O2 Saturation 99 Oxygen O2 Source Room air I&O (Last 24 Hrs): Intake and Output Totals x24h 02/25/20 02/26/20 02/27/20 23:59 23:59 23:59 Intake Total 2160 2620 1520 Output Total 600 Balance 1560 2620 1520 General: Alert, Other (Cachectic) HEENT: Mucous membr. moist/pink Neck: Supple Neuro: Non Focal Cardiovascular: Regular rate Respiratory: Chest non-tender Abdomen: Soft Extremities: No edema - Results Results: Laboratory Results WBC 9.4 x10^3/uL (4.8-10.8) 02/27/20 04:50 RBC 2.54 10^6/uL (4.20-5.40) L 02/27/20 04:50 Hgb 8.2 g/dL (12.0-16.0) L 02/27/20 04:50 Hct 23.8 % (37.0-47.0) L 02/27/20 04:50 MCV 93.7 fL (81.0-99.0) 02/27/20 04:50 MCH 32.3 pg (27.0-31.0) H 02/27/20 04:50 MCHC 34.5 g/dL (32.0-36.0) 02/27/20 04:50 RDW 14.6 % (12.0-15.0) 02/27/20 04:50 Plt Count 382 10^3/uL (130-450) 02/27/20 04:50 MPV 10.9 fL (7.9-10.8) H 02/27/20 04:50 Neut # (Auto) 4.6 10^3/uL (1.5-6.6) 02/27/20 04:50 Lymph # (Auto) 3.9 10^3/uL (1.5-3.5) H 02/27/20 04:50 [place] # (Auto) 0.7 10^3/uL (0.0-1.0) 02/27/20 04:50 Eos # (Auto) 0.1 10^3/uL (0.0-0.7) 02/27/20 04:50 Baso # (Auto) 0.1 10^3/uL (0.0-0.1) 02/27/20 04:50 Absolute Nucleated RBC 0.00 x10^3/uL 02/27/20 04:50 Nucleated RBC % 0.0 /100WBC 02/27/20 04:50 PT 11.9 secs (9.9-12.6) 02/24/20 16:03 INR 1.0 (0.8-1.2) 02/24/20 16:03 Sodium 135 mmol/L (135-145) 02/27/20 04:50 Potassium 3.3 mmol/L (3.5-5.0) L 02/27/20 04:50 Chloride 102 mmol/L (101-111) 02/27/20 04:50 Carbon Dioxide 28 mmol/L (21-32) 02/27/20 04:50 Anion Gap 5.0 (6-13) L 02/27/20 04:50 BUN 12 mg/dL (6-20) 02/27/20 04:50 Creatinine 0.9 mg/dL (0.4-1.0) 02/27/20 04:50 Estimated GFR (MDRD) 66 (>89) L 02/27/20 04:50 Glucose 105 mg/dL (70-100) H 02/27/20 04:50 Calcium 7.3 mg/dL (8.5-10.3) L 02/27/20 04:50 Magnesium 1.3 mg/dL (1.7-2.8) L 02/27/20 04:50 Iron 78 ug/dL (28-170) 02/26/20 04:45 TIBC 132 ug/dL (250-450) L 02/26/20 04:45 % Saturation 59 % (20-50) H 02/26/20 04:45 Transferrin 94 mg/dL (192-382) L 02/26/20 04:45 Total Bilirubin 0.7 mg/dL (0.2-1.0) 02/24/20 16:03 AST 32 IU/L (10-42) 02/24/20 16:03 ALT 36 IU/L (10-60) 02/24/20 16:03 Alkaline Phosphatase 627 IU/L (42-121) H 02/24/20 16:03 Total Protein 6.3 g/dL (6.7-8.2) L 02/24/20 16:03 Albumin 1.8 g/dL (3.2-5.5) L 02/24/20 16:03 Globulin 4.5 g/dL (2.1-4.2) H 02/24/20 16:03 Albumin/Globulin Ratio 0.4 (1.0-2.2) L 02/24/20 16:03 Vitamin B12 3526 pg/mL (180-914) H 02/26/20 04:45 Folate 9.14 ng/mL (5.90 - >24.8) 02/26/20 04:45 Coronavirus (PCR) NEGATIVE 02/21/20 14:40 - Procedures Procedures: Procedures INSERTION OF INFUSION DEV INTO SUP VENA CAVA, PERC APPROACH (08/12/18)
[2020-02-27] MEDS: ONDANSETRON ODT 4 MG TABLET TL PRN (20:15)
[2020-02-27] MEDS: CALCIUM CARBONATE CHEW 500 MG TABLET PO PRN (20:16)
[2020-02-27] MEDS: INSULIN GLARGINE 300 UNIT/3 ML PEN SUBQ SCH (21:33)
[2020-02-28] MEDS: oxyCODONE 5 MG TABLET PO PRN ×3 (01:15→11:24)
[2020-02-28] MEDS: LORazepam 0.5 MG TABLET PO PRN ×4 (02:11→16:02)
[2020-02-28] MEDS: MIN OIL/DIMETHICON/COCONUT OIL 92 GM TUBE TOP PRN (04:55)
[2020-02-28 05:33] LABS: BASOPHILS # (AUTO) 0.1 10^3/uL (0.0-0.1); BASOPHILS % (AUTO) 0.7 %; EOSINOPHILS # (AUTO) 0.1 10^3/uL (0.0-0.7); LYMPHOCYTES # (AUTO) 4.1 10^3/uL (1.5-3.5); LYMPHOCYTES % (AUTO) 41.8 %; MEAN CORPUSCULAR HEMOGLOBIN 32.9 pg (27.0-31.0); MEAN CORPUSCULAR HGB CONC 34.3 g/dL (32.0-36.0); MEAN CORPUSCULAR VOLUME 95.9 fL (81.0-99.0); MEAN PLATELET VOLUME 10.7 fL (7.9-10.8); MONOCYTES # (AUTO) 0.7 10^3/uL (0.0-1.0); NEUTROPHILS # (AUTO) 4.8 10^3/uL (1.5-6.6); NEUTROPHILS % (AUTO) 49.1 %; PLT - PLATELET COUNT 410 10^3/uL (130-450); RED BLOOD COUNT 2.43 10^6/uL (4.20-5.40); RED CELL DISTRIBUTION WIDTH 15.3 % (12.0-15.0); WHITE BLOOD COUNT 9.9 x10^3/uL (4.8-10.8)
[2020-02-28] MEDS: GABAPENTIN 300 MG CAPSULE PO SCH ×3 (05:43→21:27)
[2020-02-28 05:44] LABS: CALCIUM 7.4 mg/dL (8.5-10.3); CREATININE 0.8 mg/dL (0.4-1.0); MAGNESIUM 1.1 mg/dL (1.7-2.8)
[2020-02-28] MEDS: INSULIN ASPART 300 UNIT/3 ML PEN SUBQ SCH ×4 (10:45→21:11)
[2020-02-28] MEDS: METHADONE 5 MG TABLET PO SCH ×2 (10:46→21:27)
--- NOTE | 2020-02-28 11:20 | PROVIDER PROGRESS NOTE ---
Assessment/Plan - Problem List (1) Femur fracture, left Assessment/Plan: She fell, while in bathroom, onto L hip and L side of head. Portable XRays show fractured L femur. She will be admitted to inpt status. Ortho consult requested, Dr Garrido was called, he will see her in consult. Pain meds will be increased. (2) Fall during current hospitalization Qualifiers: Encounter type: initial encounter Qualified Code(s): W19.XXXA - Unspecified fall, initial encounter; Y92.239 - Unspecified place in hospital as the place of occurrence of the external cause Assessment/Plan: Pt fell in bathroom, on wet floor, per RN Mejia Cruz. Pt is now in bed, tearful from pain. Exam showed tenderness of L hip, bump on L scalp. STAT XRays of pelvis and L leg ordered. She has a fx and will need orthopedic care. STAT CT scan of head ordered. Will order neuro checks. (3) FTT (failure to thrive) in adult Assessment/Plan: This patient was homeless. She had multiple admissions with protein malnutrition, poor decision-making, alcohol abuse, opiate excess abuse. She was at [facility] 1 month ago with pneumonia and from there was accepted by [facility]. A new hospice referral was sent here when she was in observation status. Today she became an inpatient because of the femur fracture (4) At risk for unsafe behavior Assessment/Plan: She had multiple presentations here with opiate excess use, obtunded, felt to have unsafe behavior. Since coming to the ER, hospice of [place] [facility] has discharged her. Social work was looking for long-term placement for her. Placement will be put on hold now because of the new femur fracture and need for managing it (5) Severe protein-calorie malnutrition Assessment/Plan: She is cachectic. I feel some of her nutrition was from being homeless. Here she had a good appetite. (6) Anemia Qualifiers: Anemia type: iron deficiency Assessment/Plan: Iron replacement therapy has been started this admission (7) Alcoholic cirrhosis of liver Assessment/Plan: She has minimal ascites, normal INR and LFTs. There has been no recent alcohol use even before this hospitalization we think (8) Opiate use Assessment/Plan: The patient had ingested excessive amounts of her newly prescribed opiates and meds that were ordered in her new Hospice status. She came in obtunded, was sleeping it off in the ER. (9) Chronic pain Assessment/Plan: Her pain was mostly abdominal pain, this precipitated many ER visits. She has known gallstones but does not have cholecystitis, has had many abd/pelvic imaging studies. 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 Those medications had been weaned down over the previous several months because of many episodes of hypoglycemia. Currently will use just low doses of Lantus and a sliding scale of insulin for coverage. She was put on a regular diet for "comfort" when [facility] took over, and this is been continued while here and not a diabetic diet (11) Homeless Assessment/Plan: As per hx - Current Meds Current Meds: Current Medications Generic Name Dose Route Start Last Admin Trade Name Freq PRN Reason Stop Dose Admin Allopurinol 100 mg 02/25/20 09:00 02/27/20 08:35 Zyloprim PO 100 mg DAILY BRENDON Administration Calcium Carbonate/Glycine 500 mg 02/24/20 16:25 02/27/20 20:16 Tums PO 500 mg TID PRN Administration Heartburn Enoxaparin Sodium 40 mg 02/25/20 09:00 02/27/20 08:35 Lovenox SUBQ 40 mg DAILY BRENDON Administration Famotidine 20 mg 02/25/20 09:10 02/27/20 08:35 Pepcid PO 20 mg DAILY BRENDON Administration Ferrous Gluconate 324 mg 02/26/20 12:00 02/27/20 08:35 Fergon PO 324 mg DAILYWM BRENDON Administration Gabapentin 600 mg 02/24/20 22:00 02/28/20 05:43 Neurontin PO 600 mg TID BRENDON Administration Insulin Aspart 3 - 11 unit 02/27/20 21:00 02/28/20 10:45 Novolog SUBQ Not Given 0800,1200,1700,2100 [facility] Protocol Insulin Glargine 3 unit 02/27/20 21:00 02/27/20 21:33 Lantus Solostar SUBQ 3 unit QPM BRENDON Administration Lorazepam 0.5 mg 02/25/20 17:09 02/28/20 10:48 Ativan PO 0.5 mg Q3H PRN Administration Anxiety Magnesium Oxide 400 mg 02/25/20 09:00 02/27/20 08:35 Mag Ox PO 400 mg DAILYWM BRENDON Administration Methadone HCl 5 mg 02/24/20 21:00 02/28/20 10:46 PO 5 mg BID BRENDON Administration Mineral Oil 1 applic 02/24/20 17:34 02/28/20 04:55 Cavilon TOP 1 applic PRN PRN Administration Skin Care Multivitamins/Minerals 1 tab 02/25/20 09:00 02/27/20 08:35 Theragran M PO 1 tab DAILYWM BRENDON Administration Nicotine 1 patch 02/24/20 17:00 02/27/20 08:35 Nicoderm TOP 1 patch DAILY BRENDON Administration Ondansetron HCl 4 mg 02/25/20 00:57 02/27/20 20:15 Zofran Odt TL 4 mg Q4HR PRN Administration Nausea / Vomiting Oxycodone HCl 5 mg 02/25/20 17:10 02/28/20 05:46 Roxicodone PO 5 mg Q2HR PRN Administration PAIN - Lab Result Fish Bone Diagrams: 02/28/20 05:00 02/28/20 05:00 - Additional Planning My Orders: My Active Orders 02/27/20 12:35 MISC TEST QUEST AMBIENT [REFLAB] Routine 02/27/20 21:00 Insulin Aspart [NovoLOG] 3 - 11 unit SUBQ 0800,1200,1700,2100 Insulin Glargine [Lantus Solostar] 3 unit SUBQ QPM 02/28/20 10:40 HEAD WO [CT] Stat 02/28/20 10:41 Hip w/Pelvis 2-3V LT [XR] Stat Lower Leg [Tib/Fib LT] [XR] Stat 02/28/20 11:06 Admit \\ Transfer \\ Status [RC] .ONCE 02/28/20 18:00 Magnesium Oxide [Mag Ox] 400 mg PO 1800 ONE Subjective - Subjective Patient Reports: Pain (She is in pain at L hip and L scalp, later evaluated and is sleeping after Dilaudid treatment.) Objective Vital Signs: Vital Signs - 24 hr 02/27/20 02/27/20 02/28/20 15:50 23:13 07:29 Temperature 36.8 C 36.9 C 36.7 C Heart Rate [ 87 97 82 Brachial] Respiratory 18 18 16 Rate Blood Pressure 119/74 [Left Brachial artery] Blood Pressure 128/71 146/81 H [Right Brachial artery] O2 Saturation 99 98 97 Oxygen O2 Source Room air I&O (Last 24 Hrs): Intake and Output Totals x24h 02/26/20 02/27/20 02/28/20 23:59 23:59 23:59 Intake Total 2620 2760 1320 Output Total 1 Balance 2620 2760 1319 General: Moderate distress HEENT: Mucous membr. moist/pink, Other (Palpable elevation of her left parietal area with no bleeding or skin tear) Neck: Supple Neuro: Alert, Non Focal Cardiovascular: Regular rate Respiratory: No respiratory distress Abdomen: Normal bowel sounds, Soft Extremities: No edema, Other (No bruising or redness of the left hip. Tender to touch) - Results Results: Laboratory Results WBC 9.9 x10^3/uL (4.8-10.8) 02/28/20 05:00 RBC 2.43 10^6/uL (4.20-5.40) L 02/28/20 05:00 Hgb 8.0 g/dL (12.0-16.0) L 02/28/20 05:00 Hct 23.3 % (37.0-47.0) L 02/28/20 05:00 MCV 95.9 fL (81.0-99.0) 02/28/20 05:00 MCH 32.9 pg (27.0-31.0) H 02/28/20 05:00 MCHC 34.3 g/dL (32.0-36.0) 02/28/20 05:00 RDW 15.3 % (12.0-15.0) H 02/28/20 05:00 Plt Count 410 10^3/uL (130-450) 02/28/20 05:00 MPV 10.7 fL (7.9-10.8) 02/28/20 05:00 Neut # (Auto) 4.8 10^3/uL (1.5-6.6) 02/28/20 05:00 Lymph # (Auto) 4.1 10^3/uL (1.5-3.5) H 02/28/20 05:00 [place] # (Auto) 0.7 10^3/uL (0.0-1.0) 02/28/20 05:00 Eos # (Auto) 0.1 10^3/uL (0.0-0.7) 02/28/20 05:00 Baso # (Auto) 0.1 10^3/uL (0.0-0.1) 02/28/20 05:00 Absolute Nucleated RBC 0.00 x10^3/uL 02/28/20 05:00 Nucleated RBC % 0.0 /100WBC 02/28/20 05:00 PT 11.9 secs (9.9-12.6) 02/24/20 16:03 INR 1.0 (0.8-1.2) 02/24/20 16:03 Sodium 132 mmol/L (135-145) L 02/28/20 05:00 Potassium 4.1 mmol/L (3.5-5.0) 02/28/20 05:00 Chloride 103 mmol/L (101-111) 02/28/20 05:00 Carbon Dioxide 25 mmol/L (21-32) 02/28/20 05:00 Anion Gap 4.0 (6-13) L 02/28/20 05:00 BUN 11 mg/dL (6-20) 02/28/20 05:00 Creatinine 0.8 mg/dL (0.4-1.0) 02/28/20 05:00 Estimated GFR (MDRD) 75 (>89) L 02/28/20 05:00 Glucose 87 mg/dL (70-100) 02/28/20 05:00 POC Whole Bld Glucose 137 mg/dL (70 - 100) H 02/28/20 07:23 Calcium 7.4 mg/dL (8.5-10.3) L 02/28/20 05:00 Magnesium 1.1 mg/dL (1.7-2.8) L 02/28/20 05:00 Iron 78 ug/dL (28-170) 02/26/20 04:45 TIBC 132 ug/dL (250-450) L 02/26/20 04:45 % Saturation 59 % (20-50) H 02/26/20 04:45 Transferrin 94 mg/dL (192-382) L 02/26/20 04:45 Total Bilirubin 0.7 mg/dL (0.2-1.0) 02/24/20 16:03 AST 32 IU/L (10-42) 02/24/20 16:03 ALT 36 IU/L (10-60) 02/24/20 16:03 Alkaline Phosphatase 627 IU/L (42-121) H 02/24/20 16:03 Total Protein 6.3 g/dL (6.7-8.2) L 02/24/20 16:03 Albumin 1.8 g/dL (3.2-5.5) L 02/24/20 16:03 Globulin 4.5 g/dL (2.1-4.2) H 02/24/20 16:03 Albumin/Globulin Ratio 0.4 (1.0-2.2) L 02/24/20 16:03 Vitamin B12 3526 pg/mL (180-914) H 02/26/20 04:45 Folate 9.14 ng/mL (5.90 - >24.8) 02/26/20 04:45 Coronavirus (PCR) NEGATIVE 02/21/20 14:40 - Procedures Procedures: Procedures INSERTION OF INFUSION DEV INTO SUP VENA CAVA, PERC APPROACH (08/12/18)
--- NOTE | 2020-02-28 11:23 | XRAY Report ---
PROCEDURE: Tib/Fib LT INDICATIONS: Fall in hospital, onto L hip TECHNIQUE: 2 views of the tibia and fibula were acquired. COMPARISON: None. FINDINGS: Bones: No acute fractures or dislocations. No suspicious bony lesions. Metallic plate and screw co nstruct is seen in the distal fibula, which appears intact. Degenerative changes are partially imaged in the foot. Soft tissues: No suspicious soft tissue calcifications or masses. IMPRESSION: No acute fracture is identified. Reviewed by: Gene Bullock MD on 02/28/2020 11:22 AM PDT Approved by: Gene Bullock MD on 02/28/2020 11:22 AM PDT Station ID: [id number]
--- NOTE | 2020-02-28 11:24 | CT Report ---
PROCEDURE: HEAD WO INDICATIONS: Fall in hospital TECHNIQUE: Noncontrast 4.5 mm thick angled axial sections acquired from the foramen magnum to the vertex. For r adiation dose reduction, the following was used: automated exposure control, adjustment of mA and/or kV according to patient size. COMPARISON: None. FINDINGS: Image quality: Excellent. CSF spaces: Basal cisterns are patent. No extra-axial fluid collections. Ventricles are normal in size and shape. Brain: No midline shift. No intracranial masses or hemorrhage. Mahmood-white matter interface is norm al. Skull and face: Calvarium and visualized facial bones are intact, without suspicious lesions. Sinuses: Visualized sinuses demonstrate minimal scattered mucosal thickening. IMPRESSION: 1. No acute intracranial process. Reviewed by: Tiff Alex MD on 02/28/2020 11:22 AM PDT Approved by: Tiff Alex MD on 02/28/2020 11:22 AM PDT Station ID: [id number]
[2020-02-28] MEDS: ONDANSETRON ODT 4 MG TABLET TL PRN (11:26)
[2020-02-28] MEDS: CALCIUM CARBONATE CHEW 500 MG TABLET PO PRN (11:26)
--- NOTE | 2020-02-28 11:31 | XRAY Report ---
PROCEDURE: Hip w/Pelvis 2-3V LT INDICATIONS: Fall in hospital, onto L hip TECHNIQUE: AP pelvis and crosstable lateral view of the left hip. COMPARISON: Right hip radiographs dated 01/07/2019, CT abdomen/pelvis dated 02/08/2020 FINDINGS: Bones: There is irregularity of the greater tuberosity on AP and crosstable lateral views that is peña spicious for a minimally displaced fracture. Postsurgical changes are seen in the right acetabulum. P elvic ring appears intact. No suspicious bony lesions. Soft tissues: The visualized bowel gas pattern is normal. Postsurgical changes are seen in the abd omen with surgical clips and a pancreatic stent. Calcifications in the right abdomen are most likely gallstones as seen on the CT from 02/08/2020. IMPRESSION: Probable minimally displaced fracture of the greater trochanter of the left proximal femur. CT or MRI may be obtained for confirmation. Postsurgical changes of the right acetabulum with intact metallic hardware. Reviewed by: Gene Bullock MD on 02/28/2020 11:30 AM PDT Approved by: Gene Bullock MD on 02/28/2020 11:30 AM PDT Station ID: [id number]
[2020-02-28] MEDS: FERROUS GLUCONATE 324 MG TABLET PO SCH (11:44)
[2020-02-28] MEDS: MULTIVITAMIN W/MINERALS TABLET PO SCH (11:44)
[2020-02-28] MEDS: MAGNESIUM OXIDE 400 MG TABLET PO SCH (11:44)
[2020-02-28] MEDS: allopurinoL 100 MG TABLET PO SCH (11:44)
[2020-02-28] MEDS: ENOXAPARIN 40 MG/0.4 ML SYRINGE SUBQ SCH (11:45)
[2020-02-28] MEDS: FAMOTIDINE 20 MG TABLET PO SCH (11:45)
[2020-02-28] MEDS: NICOTINE 14 MG PATCH TOP SCH (11:46)
[2020-02-28] MEDS: HYDROmorphone 2 MG/ML VIAL IVP PRN ×5 (12:21→23:55)
[2020-02-28] MEDS ORDERED: MAGNESIUM OXIDE 400 MG TABLET PO ONE (18:00)
[2020-02-28] MEDS: INSULIN GLARGINE 300 UNIT/3 ML PEN SUBQ SCH (21:42)
[2020-02-29] MEDS: HYDROmorphone 2 MG/ML VIAL IVP PRN ×6 (02:58→23:51)
[2020-02-29] MEDS: CALCIUM CARBONATE CHEW 500 MG TABLET PO PRN ×2 (03:02→21:13)
[2020-02-29] MEDS: GABAPENTIN 300 MG CAPSULE PO SCH ×3 (05:58→21:15)
[2020-02-29 08:20] LABS: BASOPHILS # (AUTO) 0.1 10^3/uL (0.0-0.1); BASOPHILS % (AUTO) 0.6 %; EOSINOPHILS # (AUTO) 0.1 10^3/uL (0.0-0.7); EOSINOPHILS % (AUTO) 1.2 %; HGB - HEMOGLOBIN 7.9 g/dL (12.0-16.0); LYMPHOCYTES # (AUTO) 2.8 10^3/uL (1.5-3.5); LYMPHOCYTES % (AUTO) 34.5 %; MEAN CORPUSCULAR HEMOGLOBIN 31.7 pg (27.0-31.0); MEAN CORPUSCULAR HGB CONC 33.1 g/dL (32.0-36.0); MEAN PLATELET VOLUME 10.3 fL (7.9-10.8); MONOCYTES # (AUTO) 0.7 10^3/uL (0.0-1.0); MONOCYTES % (AUTO) 8.4 %; NEUTROPHILS # (AUTO) 4.4 10^3/uL (1.5-6.6); NEUTROPHILS % (AUTO) 54.8 %; PLT - PLATELET COUNT 428 10^3/uL (130-450); RED BLOOD COUNT 2.49 10^6/uL (4.20-5.40); RED CELL DISTRIBUTION WIDTH 15.7 % (12.0-15.0); WHITE BLOOD COUNT 8.1 x10^3/uL (4.8-10.8)
[2020-02-29 08:27] LABS: CALCIUM 7.3 mg/dL (8.5-10.3); CREATININE 0.7 mg/dL (0.4-1.0); MAGNESIUM 1.2 mg/dL (1.7-2.8)
[2020-02-29] MEDS: FERROUS GLUCONATE 324 MG TABLET PO SCH (08:42)
[2020-02-29] MEDS: INSULIN ASPART 300 UNIT/3 ML PEN SUBQ SCH ×4 (08:42→21:14)
[2020-02-29] MEDS: MULTIVITAMIN W/MINERALS TABLET PO SCH (08:43)
[2020-02-29] MEDS: allopurinoL 100 MG TABLET PO SCH (08:43)
[2020-02-29] MEDS: MAGNESIUM OXIDE 400 MG TABLET PO SCH (08:43)
[2020-02-29] MEDS: FAMOTIDINE 20 MG TABLET PO SCH (08:44)
[2020-02-29] MEDS: METHADONE 5 MG TABLET PO SCH ×2 (08:44→21:14)
[2020-02-29] MEDS: NICOTINE 14 MG PATCH TOP SCH (08:45)
[2020-02-29] MEDS: oxyCODONE 5 MG TABLET PO PRN ×2 (08:45→19:31)
--- NOTE | 2020-02-29 09:27 | ANESTHESIA ---
Pre-Anesthesia VS, & Labs - Diagnosis left hip fracture - Procedure Left Hip Nailing Vital Signs: Temp Pulse Resp BP Pulse Ox 36.7 C 89 16 136/81 H 94 02/29/20 07:25 02/29/20 07:25 02/29/20 07:25 02/29/20 07:25 02/29/20 07:25 Height 5 ft 5 in Weight (kg) 39.5 kg Body Mass Index 17.2 - NPO >8 hours - Is Patient ?: No - Lab Results Current Lab Results: Laboratory Tests 02/29/20 08:07: Sodium 132 L, Potassium 4.2, Chloride 100 L, Carbon Dioxide 27, Anion Gap 5.0 L, BUN 13, Creatinine 0.7, Estimated GFR (MDRD) 88 L, Glucose 142 H, Calcium 7.3 L, Phosphorus 3.0, Magnesium 1.2 L 02/29/20 08:07: WBC 8.1, RBC 2.49 L, Hgb 7.9 L, Hct 23.9 L, MCV 96.0, MCH 31.7 H , MCHC 33.1, RDW 15.7 H, Plt Count 428, MPV 10.3, Neut # (Auto) 4.4, Lymph # (Auto) 2.8, [place] # (Auto) 0.7, Eos # (Auto) 0.1, Baso # (Auto) 0.1, Absolute Nucleated RBC 0.00, Nucleated RBC % 0.0 02/29/20 07:26: POC Whole Bld Glucose 126 H 02/28/20 21:07: POC Whole Bld Glucose 137 H 02/28/20 16:52: POC Whole Bld Glucose 150 H 02/28/20 11:37: POC Whole Bld Glucose 247 H 02/28/20 07:23: POC Whole Bld Glucose 137 H 02/28/20 05:00: Sodium 132 L, Potassium 4.1, Chloride 103, Carbon Dioxide 25, Anion Gap 4.0 L, BUN 11, Creatinine 0.8, Estimated GFR (MDRD) 75 L, Glucose 87, Calcium 7.4 L, Magnesium 1.1 L 02/28/20 05:00: WBC 9.9, RBC 2.43 L, Hgb 8.0 L, Hct 23.3 L, MCV 95.9, MCH 32.9 H , MCHC 34.3, RDW 15.3 H, Plt Count 410, MPV 10.7, Neut # (Auto) 4.8, Lymph # (Auto) 4.1 H, [place] # (Auto) 0.7, Eos # (Auto) 0.1, Baso # (Auto) 0.1, Absolute Nucleated RBC 0.00, Nucleated RBC % 0.0 02/27/20 20:47: POC Whole Bld Glucose 423 H 02/27/20 17:57: Potassium 3.7 02/27/20 16:56: POC Whole Bld Glucose 471 H 02/27/20 11:05: POC Whole Bld Glucose 173 H 02/27/20 07:20: POC Whole Bld Glucose 119 H 02/27/20 04:50: Magnesium 1.3 L 02/27/20 04:50: Sodium 135, Potassium 3.3 L, Chloride 102, Carbon Dioxide 28, Anion Gap 5.0 L, BUN 12, Creatinine 0.9, Estimated GFR (MDRD) 66 L, Glucose 105 H, Calcium 7.3 L 02/27/20 04:50: WBC 9.4, RBC 2.54 L, Hgb 8.2 L, Hct 23.8 L, MCV 93.7, MCH 32.3 H , MCHC 34.5, RDW 14.6, Plt Count 382, MPV 10.9 H, Neut # (Auto) 4.6, Lymph # (Auto) 3.9 H, [place] # (Auto) 0.7, Eos # (Auto) 0.1, Baso # (Auto) 0.1, Absolute Nucleated RBC 0.00, Nucleated RBC % 0.0 02/26/20 20:56: POC Whole Bld Glucose 292 H 02/26/20 16:58: POC Whole Bld Glucose 282 H 02/26/20 11:03: POC Whole Bld Glucose 213 H 02/26/20 07:24: POC Whole Bld Glucose 296 H 02/26/20 04:45: Vitamin B12 3526 H, Folate 9.14 02/26/20 04:45: Sodium 129 L, Potassium 4.1, Chloride 95 L, Carbon Dioxide 28, Anion Gap 6.0, BUN 14, Creatinine 0.9, Estimated GFR (MDRD) 66 L, Glucose 366 H, Calcium 7.5 L, Magnesium 1.2 L, Iron 78, TIBC 132 L, % Saturation 59 H, Trans ok 94 L 02/26/20 04:45: WBC 7.2, RBC 2.81 L, Hgb 8.8 L, Hct 26.4 L, MCV 94.0, MCH 31.3 H , MCHC 33.3, RDW 14.3, Plt Count 388, MPV 10.8, Neut # (Auto) 3.5, Lymph # (Auto) 3.0, [place] # (Auto) 0.5, Eos # (Auto) 0.1, Baso # (Auto) 0.1, Absolute Nucleated RBC 0.00, Nucleated RBC % 0.0 02/25/20 20:35: POC Whole Bld Glucose 385 H 02/25/20 20:33: POC Whole Bld Glucose 353 H 02/25/20 17:01: POC Whole Bld Glucose 232 H 02/25/20 12:22: POC Whole Bld Glucose 380 H 02/25/20 07:42: POC Whole Bld Glucose 277 H 02/25/20 07:10: Magnesium 1.3 L 02/25/20 07:10: Sodium 129 L, Potassium 4.2, Chloride 92 L, Carbon Dioxide 30, Anion Gap 7.0, BUN 11, Creatinine 0.9, Estimated GFR (MDRD) 66 L, Glucose 328 H, Calcium 7.5 L 02/25/20 07:10: WBC 7.2, RBC 3.02 L, Hgb 9.4 L, Hct 28.3 L, MCV 93.7, MCH 31.1 H , MCHC 33.2, RDW 14.5, Plt Count 389, MPV 10.8, Neut # (Auto) 3.8, Lymph # (Auto) 2.9, [place] # (Auto) 0.4, Eos # (Auto) 0.1, Baso # (Auto) 0.1, Absolute Nucleated RBC 0.00, Nucleated RBC % 0.0 02/24/20 16:03: Sodium 127 L, Potassium 4.1, Chloride 88 L, Carbon Dioxide 33 H, Anion Gap 6.0, BUN 14, Creatinine 1.0, Estimated GFR (MDRD) 58 L, Glucose 427 H, Calcium 7.3 L, Magnesium 1.1 L, Total Bilirubin 0.7, AST 32, ALT 36, Alkaline Phosphatase 627 H, Total Protein 6.3 L, Albumin 1.8 L, Globulin 4.5 H, Albumin/Globulin Ratio 0.4 L 02/24/20 16:03: WBC 6.6, RBC 3.32 L, Hgb 10.6 L, Hct 31.2 L, MCV 94.0, MCH 31.9 H, MCHC 34.0, RDW 14.6, Plt Count 402, MPV 11.0 H, Neut # (Auto) 3.5, Lymph # (Auto) 2.7, [place] # (Auto) 0.4, Eos # (Auto) 0.0, Baso # (Auto) 0.0, Absolute Nucleated RBC 0.00, Nucleated RBC % 0.0 02/24/20 16:03: PT 11.9, INR 1.0 Lab results reviewed: Yes Fish Bones: 02/29/20 08:07 02/29/20 08:07 Home Medications and Allergies Home Medications: Ambulatory Orders Haloperidol Oral Soln [Haldol Oral Soln] 0.5 - 20 mg PO Q2H PRN 02/24/20 Insulin Glargine [Lantus Solostar] 5 unit SUBQ BID 02/24/20 LORazepam [Ativan] 0.5 - 2 mg PO Q2H PRN 02/24/20 Methadone 5 mg PO BID 02/24/20 Morphine Sulfate [Morphine Sulf Oral (Roxanol)] 5 mg PO Q1H PRN 02/24/20 Ondansetron [Ondansetron Odt] 4 mg PO Q8H PRN 02/24/20 Sennosides [Senna] 8.6 mg PO BID PRN 02/24/20 oxyCODONE [Roxicodone] 5 mg PO Q4H PRN 02/24/20 Active Medications Allopurinol (Zyloprim) 100 mg PO DAILY [facility] Last Admin: 02/29/20 08:43 Dose: 100 mg Documented by: Calcium Carbonate/Glycine (Tums) 500 mg PO TID PRN PRN Reason: Heartburn Last Admin: 02/29/20 03:02 Dose: 500 mg Documented by: Famotidine (Pepcid) 20 mg PO DAILY [facility] Last Admin: 02/29/20 08:44 Dose: 20 mg Documented by: Ferrous Gluconate (Fergon) 324 mg PO DAILYWM [facility] Last Admin: 02/29/20 08:42 Dose: 324 mg Documented by: Gabapentin (Neurontin) 600 mg PO TID [facility] Last Admin: 02/29/20 05:58 Dose: 600 mg Documented by: Hydromorphone HCl (Dilaudid (Vial)) 2 mg IVP Q2H PRN PRN Reason: PAIN Last Admin: 02/29/20 06:02 Dose: 2 mg Documented by: Sodium Chloride (Normal Saline 0.9%) 250 mls @ 0 mls/hr IV Q24H PRN PRN Reason: TKO RATE Insulin Aspart (Novolog) 3 - 11 unit SUBQ 0800,1200,1700,2100 [facility]; Protocol Last Admin: 02/29/20 08:42 Dose: Not Given Documented by: Lorazepam (Ativan) 0.5 mg PO Q3H PRN PRN Reason: Anxiety Last Admin: 02/28/20 16:02 Dose: 0.5 mg Documented by: Magnesium Oxide (Mag Ox) 400 mg PO DAILYWM [facility] Last Admin: 02/29/20 08:43 Dose: 400 mg Documented by: Methadone HCl () 5 mg PO BID [facility] Last Admin: 02/29/20 08:44 Dose: 5 mg Documented by: Mineral Oil (Cavilon) 1 applic TOP PRN PRN PRN Reason: Skin Care Last Admin: 02/28/20 04:55 Dose: 1 applic Documented by: Multivitamins/Minerals (Theragran M) 1 tab PO DAILYWM [facility] Last Admin: 02/29/20 08:43 Dose: 1 tab Documented by: Nicotine (Nicoderm) 1 patch TOP DAILY [facility] Last Admin: 02/29/20 08:45 Dose: 1 patch Documented by: Ondansetron HCl (Zofran Odt) 4 mg TL Q4HR PRN PRN Reason: Nausea / Vomiting Last Admin: 02/28/20 11:26 Dose: 4 mg Documented by: Oxycodone HCl (Roxicodone) 5 mg PO Q2HR PRN PRN Reason: PAIN Last Admin: 02/29/20 08:45 Dose: 5 mg Documented by: Senna (Senokot) 8.6 mg PO BID PRN PRN Reason: Constipation Omeprazole 40 mg PO DAILY 08/12/18 Gabapentin 600 mg PO TID 10/28/19 allopurinoL [Allopurinol] 100 mg PO DAILY 10/28/19 Insulin Aspart [NovoLOG] 4 unit SQ TIDWM 02/09/20 Haloperidol Oral Soln [Haldol Oral Soln] 0.5 - 20 mg PO Q2H PRN 02/24/20 Insulin Glargine [Lantus Solostar] 5 unit SUBQ BID 02/24/20 LORazepam [Ativan] 0.5 - 2 mg PO Q2H PRN 02/24/20 Methadone 5 mg PO BID 02/24/20 Morphine Sulfate [Morphine Sulf Oral (Roxanol)] 5 mg PO Q1H PRN 02/24/20 Ondansetron [Ondansetron Odt] 4 mg PO Q8H PRN 02/24/20 Sennosides [Senna] 8.6 mg PO BID PRN 02/24/20 oxyCODONE [Roxicodone] 5 mg PO Q4H PRN 02/24/20 Allergies/Adverse Reactions: Allergies Allergy/AdvReac Type Severity Reaction Status Date / Time morphine AdvReac Itching Verified 02/28/20 14:08 Anes History & Medical History - Anesthetic History Anesthesia Complications: reports: No previous complications Family history of Anesthesia Complications: Denies Family history of Malignant Hyperthermia: Denies - Medical History Cardiovascular: reports: Hypertension, High cholesterol Pulmonary: reports: Asthma, Pneumonia Gastrointestinal: reports: GERD, Ulcers, Pancreatitis, Cirrhosis Urinary: reports: None Neuro: reports: None Musculoskeletal: reports: Gout Endocrine/Autoimmune: reports: Type 2 diabetes, Other Blood Disorders: reports: None Skin: reports: Other Smoking Status: Current every day smoker Psychosocial: reports: Anxiety, Cannabis, Methadone - Surgical History General: Splenectomy Orthopedic: Hip replacement, Rotator cuff repair, Other Exam General: Alert, Oriented x3, Cooperative, No acute distress Dental: Poor dentition Mouth Openin Fingerbreadth Neck Mobility: Normal Mallampati classification: II Respiratory: Lungs clear, Normal breath sounds, No respiratory distress, No accessory muscle use Cardiovascular: Regular rate, Normal S1, Normal S2 Plan Anesthesia Type: General, Spinal, Fascia [place] Block Regional Block: Per Surgeon's request for Post Op pain control Consent for Procedure(s) Verified and Reviewed: Yes Code Status: Attempt Resuscitation ASA classification: 3-Severe systemic disease Is this case an emergency?: No
--- NOTE | 2020-02-29 09:34 | HISTORY & PHYSICAL EXAMINATION ---
HPI - Admitted From Admitted from: Direct admit, Other - History Obtained From History obtained from: Patient - History of Present Illness Pain/Problem Location Description: Inter-trochanteric fracture left hip Severity at the worst: reports: Severe Pain Quality: reports: Sharp, Aching, Throbbing Context-Pain started w/: reports: Exertion, Movement, Position Timing: reports: Abrupt onset Duration: reports: Days: (1) Improved with: reports: Nothing, Other (Position) Worsened by: reports: Movement HPI Comment/Other: Patient is a 54-year-old female with a past medic medical history of alcoholic cirrhosis, diabetes, polysubstance abuse fell wide while admitted to the hospital for failure to thrive and suffered intertrochanteric fracture left hip on Friday, February 28, 2020. Patient was showering in the patient's hospital room when while attempting to put her underwear on she slipped and fell onto her left side striking her hip and possibly her head she does not remember.Patient had immediate pain and was unable to bear weight on the limb. X-rays were obtained and it showed an anterior trochanteric fracture of the left hip. Patient describes of sharp and throbbing pain in her upper thigh and left hip area. Pain is worsened with certain positions and is alleviated with elevation and position. 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 : positive: None HEENT: positive: Other Psych: positive: Depression Musculoskeletal: positive: Gout Derm: positive: Other MRSA Hx?: Yes - Past Surgical History General: positive: Splenectomy Ortho: positive: Hip replacement, Rotator cuff repair, Other Social & Family Hx - Social History Does the pt smoke?: Yes Smoking Status: Current every day smoker Does the pt drink ETOH?: No Does the pt have substance abuse?: Yes - POLST Patient has POLST: No POLST Status: Full Code Meds/Allgy - Home Medications Home Medications: Ambulatory Orders Medication Instructions Recorded Confirmed Omeprazole 40 mg PO DAILY 08/12/18 02/09/20 Gabapentin 600 mg PO TID 10/28/19 02/24/20 allopurinoL [Allopurinol] 100 mg PO DAILY 10/28/19 02/24/20 Insulin Aspart [NovoLOG] 4 unit SQ TIDWM 02/09/20 02/09/20 Haloperidol Oral Soln [Haldol Oral 0.5 - 20 mg PO Q2H PRN 02/24/20 02/24/20 Soln] Insulin Glargine [Lantus Solostar] 5 unit SUBQ BID 02/24/20 02/24/20 LORazepam [Ativan] 0.5 - 2 mg PO Q2H PRN 02/24/20 02/24/20 Methadone 5 mg PO BID 02/24/20 02/24/20 Morphine Sulfate [Morphine Sulf 5 mg PO Q1H PRN 02/24/20 02/24/20 Oral (Roxanol)] Ondansetron [Ondansetron Odt] 4 mg PO Q8H PRN 02/24/20 02/24/20 Sennosides [Senna] 8.6 mg PO BID PRN 02/24/20 02/24/20 oxyCODONE [Roxicodone] 5 mg PO Q4H PRN 02/24/20 02/24/20 - Allergies Allergies/Adverse Reactions: Allergies Allergy/AdvReac Type Severity Reaction Status Date / Time morphine AdvReac Itching Verified 02/28/20 14:08 Exam - Vital Signs Vital Signs: Vital Signs x48h Temp Pulse Resp BP Pulse Ox 02/29/20 07:25 36.7 C 89 16 136/81 H 94 - Physical Exam General Appearance: positive: No acute distress Eyes Bilateral: positive: Normal inspection ENT: positive: ENT inspection nml Neck: positive: Nml inspection Respiratory: positive: Chest non-tender (Emaciated, older than stated age. Neurovascularly intact LLE externally rotated and shortened Point tenderness proximal femur. Reduced range of motion, Reduced strength. Skin overlying the fracture is intact) Results - Lab Results Fish Bones: 02/29/20 08:07 02/29/20 08:07 Other Lab Results: Lab Results x24hrs 02/29/20 02/29/20 02/29/20 Range/Units 08:07 08:07 07:26 WBC 8.1 (4.8-10.8) x10^3/uL RBC 2.49 L (4.20-5.40) 10^6/uL Hgb 7.9 L (12.0-16.0) g/dL Hct 23.9 L (37.0-47.0) % MCV 96.0 (81.0-99.0) fL MCH 31.7 H (27.0-31.0) pg MCHC 33.1 (32.0-36.0) g/dL RDW 15.7 H (12.0-15.0) % Plt Count 428 (130-450) 10^3/uL MPV 10.3 (7.9-10.8) fL Neut # (Auto) 4.4 (1.5-6.6) 10^3/uL Lymph # (Auto) 2.8 (1.5-3.5) 10^3/uL [place] # (Auto) 0.7 (0.0-1.0) 10^3/uL Eos # (Auto) 0.1 (0.0-0.7) 10^3/uL Baso # (Auto) 0.1 (0.0-0.1) 10^3/uL Absolute Nucleated RBC 0.00 x10^3/uL Nucleated RBC % 0.0 /100WBC Sodium 132 L (135-145) mmol/L Potassium 4.2 (3.5-5.0) mmol/L Chloride 100 L (101-111) mmol/L Carbon Dioxide 27 (21-32) mmol/L Anion Gap 5.0 L (6-13) BUN 13 (6-20) mg/dL Creatinine 0.7 (0.4-1.0) mg/dL Estimated GFR (MDRD) 88 L (>89) Glucose 142 H (70-100) mg/dL POC Whole Bld Glucose 126 H (70 - 100) mg/dL Calcium 7.3 L (8.5-10.3) mg/dL Phosphorus 3.0 (2.5-4.6) mg/dL Magnesium 1.2 L (1.7-2.8) mg/dL 02/28/20 02/28/20 02/28/20 Range/Units 21:07 16:52 11:37 WBC (4.8-10.8) x10^3/uL RBC (4.20-5.40) 10^6/uL Hgb (12.0-16.0) g/dL Hct (37.0-47.0) % MCV (81.0-99.0) fL MCH (27.0-31.0) pg MCHC (32.0-36.0) g/dL RDW (12.0-15.0) % Plt Count (130-450) 10^3/uL MPV (7.9-10.8) fL Neut # (Auto) (1.5-6.6) 10^3/uL Lymph # (Auto) (1.5-3.5) 10^3/uL [place] # (Auto) (0.0-1.0) 10^3/uL Eos # (Auto) (0.0-0.7) 10^3/uL Baso # (Auto) (0.0-0.1) 10^3/uL Absolute Nucleated RBC x10^3/uL Nucleated RBC % /100WBC Sodium (135-145) mmol/L Potassium (3.5-5.0) mmol/L Chloride (101-111) mmol/L Carbon Dioxide (21-32) mmol/L Anion Gap (6-13) BUN (6-20) mg/dL Creatinine (0.4-1.0) mg/dL Estimated GFR (MDRD) (>89) Glucose (70-100) mg/dL POC Whole Bld Glucose 137 H 150 H 247 H (70 - 100) mg/dL Calcium (8.5-10.3) mg/dL Phosphorus (2.5-4.6) mg/dL Magnesium (1.7-2.8) mg/dL Impression/Plan - Problem List Problem List: Patient is a 54-year-old female with alcoholic cirrhosis, diabetes polysubstance abuse and failure to thrive who suffered a ground-level fall approximately 1 day ago has intertrochanteric left hip fracture. The plan is open reduction internal fixation left hip fracture. I have discussed the risks and benefits of the surgery including disability and . Order Legacy look into order for an order I do know if you are I have discussed the alternatives to surgery the likelihood of needing surgical goals the benefits and the risks including disa bility and . I have discussed general and specific risks to this surgery. I have encouraged questions and performed the teach back. Patient expresses understanding and agrees to surgery and informed consent is signed. Problem list: 1. Left hip fracture 2. Diabetes 3. Cirrhosis of the liver 4. Hx of polysubstance abuse 5. Failure to thrive Patient was seen with Dr. Garrido, the plan was discussed and reviewed and has his consent
[2020-02-29] MEDS ORDERED: BUPIVACAINE 0.25% PF 30 ML VIAL ONE (10:28)
[2020-02-29] MEDS ORDERED: CALCIUM CHLORIDE ABBOJECT 1000MG/10 ML SYRINGE IVP ONE (10:30)
[2020-02-29] MEDS ORDERED: ROCURONIUM 50 MG/5 ML VIAL IVP ONE (10:30)
[2020-02-29] MEDS ORDERED: fentaNYL 100 MCG/2 ML VIAL IVP ONE (10:30)
[2020-02-29] MEDS ORDERED: TRANEXAMIC ACID 1,000 MG/10 ML VIAL IV ONE (10:30)
[2020-02-29] MEDS ORDERED: PROPOFOL 200 MG/20 ML VIAL IVP ONE ×2 (10:30)
[2020-02-29] MEDS ORDERED: KETAMINE 500 MG/10 ML VIAL IVP ONE (10:30)
[2020-02-29] MEDS ORDERED: PHENYLEPHRINE 10 MG/ML VIAL IV ONE (10:30)
[2020-02-29] MEDS ORDERED: LIDOCAINE-MPF 2% 5 ML VIAL IM ONE (10:30)
[2020-02-29] MEDS ORDERED: CALCIUM CHLORIDE ABBOJECT 1000MG/10 ML SYRINGE ONE (10:42)
--- NOTE | 2020-02-29 12:23 | PROVIDER PROGRESS NOTE ---
Assessment/Plan - Problem List (1) Femur fracture, left Assessment/Plan: Patient is a status post surgery day 1 from left hip repair. We will continue consult with orthopedic, Pain control, DVT prophylaxis per surgeon, will continue physical therapist and occupational therapist. Social work is consulted For discharge placement. Fall precaution (2) Fall during current hospitalization Pt fell in bathroom on yesterday, on wet floor, per RN Mejia Cruz. Patient had left hip repair in the morning. Continue neuro checks. Fall precaution (3) FTT (failure to thrive) in adult Assessment/Plan: This patient was homeless. She had multiple admissions with protein malnutrition, poor decision-making, alcohol abuse, opiate excess abuse, c achectic, failure to thrive, cirrhosis. She was accepted by [facility] before. A new hospice referral was sent here. Social work was consulted for discharge placement (4) At risk for unsafe behavior Assessment/Plan: Including patient had a fall in the hospital. After surgery patient, pt will have PT/OT in the hospital, social insurance administrator was consulted for discharge planning (5) Severe protein-calorie malnutrition Assessment/Plan: Patient is a homeless status improved, she had a good appetite. (6) Anemia Patient hemoglobin is 7.9 today. Patient has a history of alcohol abuse, hepatic failure, severe malnutrition. order stool blood test, Because the patient will have a surgery on today and ordered type and screen, and check with H&H, and prepare blood products from blood bank Iron replacement therapy has been started this admission (7) Alcoholic cirrhosis of liver Assessment/Plan: She has minimal ascites, lab test reveal normal INR and normal bili, AST, ALT. There has been no recent alcohol use even before this hospitalization we think (8) Opiate use Assessment/Plan: The patient had history of ingested excessive amounts of her newly prescribed opiates and meds that were ordered in her new Hospice status. She came in obtunded, was sleeping it off in the ER. (9) Chronic pain Assessment/Plan: Her pain was mostly abdominal pain, this precipitated many ER visits. She has known gallstones but does not have cholecystitis, has had many abd/pelvic imagin g studies. (10) Diabetes mellitus with hyperglycemia Because the patient has multiple times of Hypoglycemia so patient insulin is removed from his home medication list. Because of her very good appetite here, her glucose levels were running 300 400, since she had been off her Lantus and regular insulin and metformin before this hospitalization. Those medications had been weaned down over the previous several months because of many episodes of hypoglycemia. Currently will use just low doses of Lantus and a sliding scale of insulin for coverage. She was put on a regular diet for "comfort" when [facility] took over, and this is been continued while here and not a diabetic diet (11) Homeless Assessment/Plan: As per hx - Current Meds Current Meds: Current Medications Generic Name Dose Route Start Last Admin Trade Name Freq PRN Reason Stop Dose Admin Allopurinol 100 mg 02/25/20 09:00 02/29/20 08:43 Zyloprim PO 100 mg DAILY BRENDON Administration Calcium Carbonate/Glycine 500 mg 02/24/20 16:25 02/29/20 03:02 Tums PO 500 mg TID PRN Administration Heartburn Famotidine 20 mg 02/25/20 09:10 02/29/20 08:44 Pepcid PO 20 mg DAILY BRENDON Administration Ferrous Gluconate 324 mg 02/26/20 12:00 02/29/20 08:42 Fergon PO 324 mg DAILYWM BRENDON Administration Gabapentin 600 mg 02/24/20 22:00 02/29/20 05:58 Neurontin PO 600 mg TID BRENDON Administration Hydromorphone HCl 2 mg 02/28/20 11:50 02/29/20 06:02 Dilaudid (Vial) IVP 2 mg Q2H PRN Administration PAIN Insulin Aspart 3 - 11 unit 02/27/20 21:00 02/29/20 12:12 Novolog SUBQ Not Given 0800,1200,1700,2100 [facility] Protocol Lorazepam 0.5 mg 02/25/20 17:09 02/28/20 16:02 Ativan PO 0.5 mg Q3H PRN Administration Anxiety Magnesium Oxide 400 mg 02/25/20 09:00 02/29/20 08:43 Mag Ox PO 400 mg DAILYWM BRENDON Administration Methadone HCl 5 mg 02/24/20 21:00 02/29/20 08:44 PO 5 mg BID BRENDON Administration Mineral Oil 1 applic 02/24/20 17:34 02/28/20 04:55 Cavilon TOP 1 applic PRN PRN Administration Skin Care Multivitamins/Minerals 1 tab 02/25/20 09:00 02/29/20 08:43 Theragran M PO 1 tab DAILYWM BRENDON Administration Nicotine 1 patch 02/24/20 17:00 02/29/20 08:45 Nicoderm TOP 1 patch DAILY BRENDON Administration Ondansetron HCl 4 mg 02/25/20 00:57 02/28/20 11:26 Zofran Odt TL 4 mg Q4HR PRN Administration Nausea / Vomiting Oxycodone HCl 5 mg 02/25/20 17:10 02/29/20 08:45 Roxicodone PO 5 mg Q2HR PRN Administration PAIN - Lab Result Fish Bone Diagrams: 02/29/20 08:07 02/29/20 08:07 - Additional Planning My Orders: My Active Orders 02/29/20 Orthopedics Consult [CONS] Routine 02/29/20 08:09 NPO except Meds [DIET] 02/29/20 09:20 RBC, LEUKOREDUCED Stat TYPE AND SCREEN Stat 02/29/20 20:00 H&H [HEMOGLOBIN AND HEMATOCRIT] [HEME] Timed 03/01/20 05:00 BMP - BASIC METABOLIC PANEL [CHEM] DAILYLAB CBC - COMP BLD CT W/AUTO DIFF [HEME] DAILYLAB 03/02/20 05:00 BMP - BASIC METABOLIC PANEL [CHEM] DAILYLAB CBC - COMP BLD CT W/AUTO DIFF [HEME] DAILYLAB 03/03/20 05:00 BMP - BASIC METABOLIC PANEL [CHEM] DAILYLAB CBC - COMP BLD CT W/AUTO DIFF [HEME] DAILYLAB 03/04/20 05:00 BMP - BASIC METABOLIC PANEL [CHEM] DAILYLAB CBC - COMP BLD CT W/AUTO DIFF [HEME] DAILYLAB Subjective - Subjective Patient Reports: Feeling Better Objective Vital Signs: Vital Signs - 24 hr 02/28/20 02/29/20 02/29/20 15:43 00:00 07:25 Temperature 36.4 C L 36.8 C 36.7 C Heart Rate [ 98 92 89 Brachial] Respiratory 18 18 16 Rate Blood Pressure 109/73 130/81 H 136/81 H [Right Brachial artery] O2 Saturation 100 98 94 Oxygen O2 Source Room air I&O (Last 24 Hrs): Intake and Output Totals x24h 02/27/20 02/28/20 02/29/20 23:59 23:59 23:59 Intake Total 2760 1560 Output Total 401 350 Balance 2760 1159 -350 General: Alert, No acute distress HEENT: Atraumatic Neck: Supple Lymphatic: no adenopathy Neuro: Alert, Non Focal Cardiovascular: Regular rate, Normal S1, Normal S2 Respiratory: Chest non-tender, No respiratory distress Abdomen: Normal bowel sounds, Soft, No tenderness Extremities: Normal pulses - Results Results: Laboratory Results WBC 8.1 x10^3/uL (4.8-10.8) 02/29/20 08:07 RBC 2.49 10^6/uL (4.20-5.40) L 02/29/20 08:07 Hgb 7.9 g/dL (12.0-16.0) L 02/29/20 08:07 Hct 23.9 % (37.0-47.0) L 02/29/20 08:07 MCV 96.0 fL (81.0-99.0) 02/29/20 08:07 MCH 31.7 pg (27.0-31.0) H 02/29/20 08:07 MCHC 33.1 g/dL (32.0-36.0) 02/29/20 08:07 RDW 15.7 % (12.0-15.0) H 02/29/20 08:07 Plt Count 428 10^3/uL (130-450) 02/29/20 08:07 MPV 10.3 fL (7.9-10.8) 02/29/20 08:07 Neut # (Auto) 4.4 10^3/uL (1.5-6.6) 02/29/20 08:07 Lymph # (Auto) 2.8 10^3/uL (1.5-3.5) 02/29/20 08:07 [place] # (Auto) 0.7 10^3/uL (0.0-1.0) 02/29/20 08:07 Eos # (Auto) 0.1 10^3/uL (0.0-0.7) 02/29/20 08:07 Baso # (Auto) 0.1 10^3/uL (0.0-0.1) 02/29/20 08:07 Absolute Nucleated RBC 0.00 x10^3/uL 02/29/20 08:07 Nucleated RBC % 0.0 /100WBC 02/29/20 08:07 PT 11.9 secs (9.9-12.6) 02/24/20 16:03 INR 1.0 (0.8-1.2) 02/24/20 16:03 Sodium 132 mmol/L (135-145) L 02/29/20 08:07 Potassium 4.2 mmol/L (3.5-5.0) 02/29/20 08:07 Chloride 100 mmol/L (101-111) L 02/29/20 08:07 Carbon Dioxide 27 mmol/L (21-32) 02/29/20 08:07 Anion Gap 5.0 (6-13) L 02/29/20 08:07 BUN 13 mg/dL (6-20) 02/29/20 08:07 Creatinine 0.7 mg/dL (0.4-1.0) 02/29/20 08:07 Estimated GFR (MDRD) 88 (>89) L 02/29/20 08:07 Glucose 142 mg/dL (70-100) H 02/29/20 08:07 POC Whole Bld Glucose 126 mg/dL (70 - 100) H 02/29/20 07:26 Calcium 7.3 mg/dL (8.5-10.3) L 02/29/20 08:07 Phosphorus 3.0 mg/dL (2.5-4.6) 02/29/20 08:07 Magnesium 1.2 mg/dL (1.7-2.8) L 02/29/20 08:07 Iron 78 ug/dL (28-170) 02/26/20 04:45 TIBC 132 ug/dL (250-450) L 02/26/20 04:45 % Saturation 59 % (20-50) H 02/26/20 04:45 Transferrin 94 mg/dL (192-382) L 02/26/20 04:45 Total Bilirubin 0.7 mg/dL (0.2-1.0) 02/24/20 16:03 AST 32 IU/L (10-42) 02/24/20 16:03 ALT 36 IU/L (10-60) 02/24/20 16:03 Alkaline Phosphatase 627 IU/L (42-121) H 02/24/20 16:03 Total Protein 6.3 g/dL (6.7-8.2) L 02/24/20 16:03 Albumin 1.8 g/dL (3.2-5.5) L 02/24/20 16:03 Globulin 4.5 g/dL (2.1-4.2) H 02/24/20 16:03 Albumin/Globulin Ratio 0.4 (1.0-2.2) L 02/24/20 16:03 Vitamin B12 3526 pg/mL (180-914) H 02/26/20 04:45 Folate 9.14 ng/mL (5.90 - >24.8) 02/26/20 04:45 Coronavirus (PCR) NEGATIVE 02/21/20 14:40 Blood Type O POSITIVE 02/29/20 09:20 Antibody Screen NEGATIVE 02/29/20 09:20 Crossmatch IS Only See Detail 02/29/20 09:20 - Procedures Procedures: Procedures INSERTION OF INFUSION DEV INTO SUP VENA CAVA, PERC APPROACH (08/12/18) ABX Reporting Has patient been on IV antibiotics over the past 48 hours?: No Current Medications - Current Medications Current Medications: Active Medications Allopurinol (Zyloprim) 100 mg PO DAILY [facility] Last Admin: 02/29/20 08:43 Dose: 100 mg Documented by: Calcium Carbonate/Glycine (Tums) 500 mg PO TID PRN PRN Reason: Heartburn Last Admin: 02/29/20 03:02 Dose: 500 mg Documented by: Famotidine (Pepcid) 20 mg PO DAILY [facility] Last Admin: 02/29/20 08:44 Dose: 20 mg Documented by: Ferrous Gluconate (Fergon) 324 mg PO DAILYWM [facility] Last Admin: 02/29/20 08:42 Dose: 324 mg Documented by: Gabapentin (Neurontin) 600 mg PO TID [facility] Last Admin: 02/29/20 05:58 Dose: 600 mg Documented by: Hydromorphone HCl (Dilaudid (Vial)) 2 mg IVP Q2H PRN PRN Reason: PAIN Last Admin: 02/29/20 06:02 Dose: 2 mg Documented by: Sodium Chloride (Normal Saline 0.9%) 250 mls @ 0 mls/hr IV Q24H PRN PRN Reason: TKO RATE Insulin Aspart (Novolog) 3 - 11 unit SUBQ 0800,1200,1700,2100 [facility]; Protocol Last Admin: 02/29/20 12:12 Dose: Not Given Documented by: Lorazepam (Ativan) 0.5 mg PO Q3H PRN PRN Reason: Anxiety Last Admin: 02/28/20 16:02 Dose: 0.5 mg Documented by: Magnesium Oxide (Mag Ox) 400 mg PO DAILYWM [facility] Last Admin: 02/29/20 08:43 Dose: 400 mg Documented by: Methadone HCl () 5 mg PO BID [facility] Last Admin: 02/29/20 08:44 Dose: 5 mg Documented by: Mineral Oil (Cavilon) 1 applic TOP PRN PRN PRN Reason: Skin Care Last Admin: 02/28/20 04:55 Dose: 1 applic Documented by: Multivitamins/Minerals (Theragran M) 1 tab PO DAILYWM [facility] Last Admin: 02/29/20 08:43 Dose: 1 tab Documented by: Nicotine (Nicoderm) 1 patch TOP DAILY [facility] Last Admin: 02/29/20 08:45 Dose: 1 patch Documented by: Ondansetron HCl (Zofran Odt) 4 mg TL Q4HR PRN PRN Reason: Nausea / Vomiting Last Admin: 02/28/20 11:26 Dose: 4 mg Documented by: Oxycodone HCl (Roxicodone) 5 mg PO Q2HR PRN PRN Reason: PAIN Last Admin: 02/29/20 08:45 Dose: 5 mg Documented by: Senna (Senokot) 8.6 mg PO BID PRN PRN Reason: Constipation Omeprazole 40 mg PO DAILY 08/12/18 Gabapentin 600 mg PO TID 10/28/19 allopurinoL [Allopurinol] 100 mg PO DAILY 10/28/19 Insulin Aspart [NovoLOG] 4 unit SQ TIDWM 02/09/20 Haloperidol Oral Soln [Haldol Oral Soln] 0.5 - 20 mg PO Q2H PRN 02/24/20 Insulin Glargine [Lantus Solostar] 5 unit SUBQ BID 02/24/20 LORazepam [Ativan] 0.5 - 2 mg PO Q2H PRN 02/24/20 Methadone 5 mg PO BID 02/24/20 Morphine Sulfate [Morphine Sulf Oral (Roxanol)] 5 mg PO Q1H PRN 02/24/20 Ondansetron [Ondansetron Odt] 4 mg PO Q8H PRN 02/24/20 Sennosides [Senna] 8.6 mg PO BID PRN 02/24/20 oxyCODONE [Roxicodone] 5 mg PO Q4H PRN 02/24/20
[2020-02-29] MEDS ORDERED: ACETAMINOPHEN 1,000 MG/100 ML 100 ML IV PRN (13:22)
--- NOTE | 2020-02-29 13:23 | OPERATIVE REPORT ---
Operative Report - General Admit Date: 02/28/20 Procedure Date: 02/29/20 Planned Procedure: Open reduction internal fixation intertrochanteric fracture left hip Pre-Op Diagnosis: Displaced intertrochanteric fracture left hip Procedure Performed: Open reduction internal fixation left hip intertrochanteric fracture with intramedullary liz and hip screw: [employer] InterTAN nail, 10 mm in diameter, short nail with distal locking screw and 80 mm lag screw and 75 mm compression screw Post Op Diagnosis: Same as preoperative diagnosis - Procedure Note Primary Surgeon: Dr. Wyatt Garrido Secondary Surgeon: GAGE Contreras Anesthesia Provider: Scott Maradiaga MD Anesthesia Technique: General ET tube, Regional block Estimated Blood Loss (mL): 25 Indications: This is a 54-year-old woman who fell while being admitted for non-orthopedic problems. While on the medical floor, she fell onto her left hip when putting on her underwear after taking a shower. She lost her footing and fell and had pain to left hip and upper thigh and marked difficulty bearing any weight on left leg. Even though she is a relatively young, her physiological age age much older as she has multiple comorbidities. Findings: Displaced mildly comminuted intertrochanteric fracture left hip with clinical deformity Complications: No complications - Other Other Information/Narrative: The patient was brought to the operating room table and placed on the [facility] orthopedic fracture table in a supine position. The well-leg was placed in a well-leg baxter with the hip in some flexion, abduction and external rotation. The left leg was placed in a padded boot traction. The fracture was well aligned with the fracture table using traction, internal rotation and neutral adduction. The C-arm image intensifier confirmed good alignment on both AP and lateral images. The left hip and lower extremity were prepped and draped in a sterile manner in the usual fashion. A timeout procedure was performed by the entire operating room team and all were in agreement. A vertical transparent barrier was used over the lateral aspect of the hip and lower leg. A 2-1/2 cm incision was made longitudinally just proximal to the greater trochanter of the left hip. The subcutaneous tissue and fascia was split and the gluteus muscle was split longitudinally with blunt dissection. The starting point entry was established with a curved sharp bone awl. This position was confirmed with the C arm image intensifier and allowed a 3.2 mm guidepin to be inserted down the medullary canal of the left femur. Reaming was then performed over the guidepin down to the lesser trochanter. A short nail was assembled on the guide and impacted by hand down the femoral canal to allow a second cannula to be inserted more distally for the lag screw. The cannulated guide was inserted through a 1.5 cm incision. A guidepin was inserted into the midline on the femoral head and slightly posterior to the midline on the lateral view. The depth of the guidepin was measured. The guidepin was impacted into the femoral head. Reaming was then carried out over the cannulated guidepin. A 80 mm lag screw was inserted the compressional hole was completed with 2 drills 1 for lateral cortex and the other for the central hole. A 75 mm compression screw was inserted and adjusted to appropriate tightening. The alignment was very good as well as the internal fixation. A distal locking screw was inserted through a third incision, 35 mm cortical screw transfixing the intramedullary liz. The traction was released. The wounds were irrigated and closed in layers with 2-0 Vicryl for the fascia, 2-0 Vicryl for the subcutaneous tissue and 3-0 Monocryl subcuticular suture. Dermabond was applied to the incisions as well as a silver impregnated dressing. She received 2 g of Ancef prior to the incision and 1 g of tranxemic acid. She tolerated the procedure well. There is no clinical deformity to the left leg and the hip had good motion at the termination of the procedureThe use of a physician assistant restaurant general manager was necessary for this procedure to facilitate with patient positioning, exposure, wound closure and dressing application.
[2020-02-29] MEDS ORDERED: NALOXONE 0.4 MG/ML VIAL IVP PRN (13:28)
[2020-02-29] MEDS ORDERED: ONDANSETRON 4 MG/2 ML VIAL IVP PRN (13:28)
[2020-02-29] MEDS ORDERED: HYDROmorphone 0.5 MG/0.5 ML SYRINGE IVP PRN (13:28)
[2020-02-29] MEDS ORDERED: ePHEDrine 50 MG/ML VIAL IVP PRN (13:28)
[2020-02-29] MEDS ORDERED: ATROPINE ABBOJECT 1 MG/10 ML SYRINGE IVP PRN (13:28)
[2020-02-29] MEDS ORDERED: diphenhydrAMINE INJ 50 MG/ML VIAL IVP PRN (13:28)
[2020-02-29] MEDS ORDERED: METOCLOPRAMIDE 10 MG/2 ML VIAL IVP PRN (13:28)
[2020-02-29] MEDS ORDERED: LACTATED RINGERS 900 ML IV ONE (13:30)
--- NOTE | 2020-02-29 13:40 | ANESTHESIA POST OP EVALUATION ---
Anesthesia Post Eval - Post Anesthesia Eval Vitals: Last Vital Signs Temp 36.2 C L 02/29/20 13:19 Pulse 98 02/29/20 13:19 Resp 12 02/29/20 13:19 BP 116/86 H 02/29/20 13:19 Pulse Ox 98 02/29/20 13:19 CV Function Including HR & BP: positive: Stable Pain Control: positive: Satisfactory Nausea & Vomiting: positive: Negative Mental Status: positive: Patient Participates Respiratory Status: Airway Patent Hydration Status: Satisfactory Anesthesia Complications: positive: None
[2020-02-29] MEDS: fentaNYL 100 MCG/2 ML VIAL IVP PRN ×3 (13:48→13:59)
[2020-02-29] MEDS ORDERED: fentaNYL 100 MCG/2 ML VIAL ONE (13:53)
[2020-02-29] MEDS ORDERED: LACTATED RINGERS 1,000 ML IV SCH (14:00)
[2020-02-29] MEDS ORDERED: ONDANSETRON 4 MG/2 ML VIAL ONE (14:01)
--- NOTE | 2020-02-29 15:21 | XRAY Report ---
PROCEDURE: OR C-Arm Procedure INDICATIONS: Fracture TECHNIQUE: AP and lateral views of the femur were acquired intraoperatively utilizing the portable C -arm device. COMPARISON: 01/29/2020. FINDINGS: Bones: Intraoperative images demonstrate intramedullary liz and dynamic compression screws in the pro ximal left femur place for ORIF of proximal left femur fracture. Soft tissues: No suspicious soft tissue calcifications or masses. IMPRESSION: Expected postsurgical change from ORIF of left femur fracture. Reviewed by: Indu Wilson MD, PhD on 02/29/2020 3:20 PM PDT Approved by: Indu Wilson MD, PhD on 02/29/2020 3:20 PM PDT Station ID: [id number]
[2020-02-29] MEDS: SODIUM CHLORIDE FLUSH 0.9% 10 ML SYRINGE IVP SCH ×2 (16:38→23:53)
[2020-02-29] MEDS: LORazepam 0.5 MG TABLET PO PRN (17:45)
[2020-02-29] MEDS: ASPIRIN 325 MG TABLET PO SCH (17:45)
[2020-02-29] MEDS: ceFAZolin 2 GM in SODIUM CHLORIDE 0.9% 100ML 100 ML IV SCH (17:45)
[2020-02-29] MEDS ORDERED: ACETAMINOPHEN 1,000 MG/100 ML 100 ML IV ONE (18:00)
[2020-02-29 20:28] LABS: HGB - HEMOGLOBIN 8.8 g/dL (12.0-16.0)
[2020-02-29] MEDS: ONDANSETRON ODT 4 MG TABLET TL PRN (21:16)
[2020-03-01] MEDS: ceFAZolin 2 GM in SODIUM CHLORIDE 0.9% 100ML 100 ML IV SCH (01:55)
[2020-03-01] MEDS ORDERED: ceFAZolin 1 GM VIAL ONE (01:59)
[2020-03-01] MEDS: HYDROmorphone 2 MG/ML VIAL IVP PRN ×7 (02:43→21:30)
[2020-03-01 05:31] LABS: BASOPHILS # (AUTO) 0.1 10^3/uL (0.0-0.1); BASOPHILS % (AUTO) 0.7 %; EOSINOPHILS # (AUTO) 0.1 10^3/uL (0.0-0.7); EOSINOPHILS % (AUTO) 0.9 %; HGB - HEMOGLOBIN 8.5 g/dL (12.0-16.0); LYMPHOCYTES # (AUTO) 2.4 10^3/uL (1.5-3.5); LYMPHOCYTES % (AUTO) 28.3 %; MEAN CORPUSCULAR HEMOGLOBIN 32.1 pg (27.0-31.0); MEAN CORPUSCULAR HGB CONC 32.9 g/dL (32.0-36.0); MEAN CORPUSCULAR VOLUME 97.4 fL (81.0-99.0); MEAN PLATELET VOLUME 10.4 fL (7.9-10.8); MONOCYTES # (AUTO) 0.5 10^3/uL (0.0-1.0); MONOCYTES % (AUTO) 6.1 %; NEUTROPHILS # (AUTO) 5.4 10^3/uL (1.5-6.6); NEUTROPHILS % (AUTO) 63.5 %; PLT - PLATELET COUNT 476 10^3/uL (130-450); RED BLOOD COUNT 2.65 10^6/uL (4.20-5.40); RED CELL DISTRIBUTION WIDTH 15.9 % (12.0-15.0); WHITE BLOOD COUNT 8.5 x10^3/uL (4.8-10.8)
[2020-03-01] MEDS: GABAPENTIN 300 MG CAPSULE PO SCH ×3 (05:35→21:22)
[2020-03-01] MEDS: oxyCODONE 5 MG TABLET PO PRN ×3 (05:35→16:36)
[2020-03-01] MEDS: ONDANSETRON ODT 4 MG TABLET TL PRN (05:35)
[2020-03-01 05:40] LABS: CALCIUM 7.9 mg/dL (8.5-10.3); CREATININE 0.8 mg/dL (0.4-1.0)
[2020-03-01] MEDS: CALCIUM CARBONATE CHEW 500 MG TABLET PO PRN ×3 (06:27→21:36)
[2020-03-01] MEDS: ACETAMINOPHEN 325 MG TABLET PO PRN ×2 (08:42→13:01)
[2020-03-01] MEDS: MAGNESIUM OXIDE 400 MG TABLET PO SCH (08:43)
[2020-03-01] MEDS: allopurinoL 100 MG TABLET PO SCH (08:43)
[2020-03-01] MEDS: FAMOTIDINE 20 MG TABLET PO SCH (08:43)
[2020-03-01] MEDS: MULTIVITAMIN W/MINERALS TABLET PO SCH (08:44)
[2020-03-01] MEDS: FERROUS GLUCONATE 324 MG TABLET PO SCH (08:44)
[2020-03-01] MEDS: METHADONE 5 MG TABLET PO SCH ×2 (08:44→21:21)
[2020-03-01] MEDS: ASPIRIN 325 MG TABLET PO SCH ×2 (08:44→16:37)
[2020-03-01] MEDS: LORazepam 0.5 MG TABLET PO PRN (08:45)
[2020-03-01] MEDS: NICOTINE 14 MG PATCH TOP SCH (08:46)
[2020-03-01] MEDS: INSULIN ASPART 300 UNIT/3 ML PEN SUBQ SCH ×4 (08:47→21:21)
[2020-03-01] MEDS: SODIUM CHLORIDE FLUSH 0.9% 10 ML SYRINGE IVP SCH ×2 (08:47→16:37)
[2020-03-01] MEDS: SODIUM CHLORIDE 0.9% 250 ML IV PRN ×2 (08:52→21:44)
[2020-03-01] MEDS: SODIUM CHLORIDE FLUSH 0.9% 10 ML SYRINGE IVP PRN ×2 (13:02→18:44)
--- NOTE | 2020-03-01 13:28 | PROVIDER PROGRESS NOTE ---
Assessment/Plan - Problem List (1) Femur fracture, left Assessment/Plan: 03/01 This is day 1 status post of left hip repair, Patient is doing well. We will continue physical and occupational therapy treatment and evaluation for patient. Continue pain control, continue aspirin 325 twice daily for DVT prophylaxis. Consult with social work for planning discharge Patient is a status post surgery day 1 from left hip repair. We will continue consult with orthopedic, Pain control, DVT prophylaxis per surgeon, will continue physical therapist and occupational therapist. Social work is consulted For discharge placement. Fall precaution (2) Fall during current hospitalization Pt fell in bathroom on yesterday, on wet floor, per RN Mejia Cruz. Patient had left hip repair in the morning. Continue neuro checks. Fall precaution (3) FTT (failure to thrive) in adult Assessment/Plan: This patient was homeless. She had multiple admissions with protein malnutrition, poor decision-making, alcohol abuse, opiate excess abuse, cachectic, failure to thrive, cirrhosis. She was accepted by [facility] before. A new hospice referral was sent here. Social work was consulted for discharge placement (4) At risk for unsafe behavior Assessment/Plan: Including patient had a fall in the hospital. After surgery patient, pt will have PT/OT in the hospital, social media marketing specialist was consulted for discharge planning (5) Severe protein-calorie malnutrition Assessment/Plan: Patient is a homeless status improved, she had a good appetite. (6) Anemia 92,Patient hemoglobin increased and stable even after surgery. Today her hemoglobin is 8.5 from yesterday 7.9. 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 Patient has a history of alcohol abuse, hepatic failure, severe malnutrition. order stool blood test, Because the patient will have a surgery on today and ordered type and screen, and check with H&H, and prepare blood products from blood bank Iron replacement therapy has been started this admission (7) Alcoholic cirrhosis of liver Assessment/Plan: She has minimal ascites, lab test reveal normal INR and normal bili, AST, ALT. There has been no recent alcohol use even before this hospitalization we think (8) Opiate use Assessment/Plan: The patient had history of ingested excessive amounts of her newly prescribed opiates and meds that were ordered in her new Hospice status. She came in obtunded, was sleeping it off in the ER. (9) Chronic pain Assessment/Plan: Her pain was mostly abdominal pain, this precipitated many ER visits. She has known gallstones but does not have cholecystitis, has had many abd/pelvic imaging studies. (10) Diabetes mellitus with hyperglycemia 92,We will keep the same sliding scale, continue glucose monitor, continue hypoglycemia protocol Because the patient has multiple times of Hypoglycemia so patient insulin is removed from his home medication list. Because of her very good appetite here, her glucose levels were running 300 400, since she had been off her Lantus and regular insulin and metformin before this hospitalization. Those medications had been weaned down over the previous several months because of many episodes of hypoglycemia. Currently will use just low doses of Lantus and a sliding scale of insulin for coverage. She was put on a regular diet for "comfort" when [facility] took over, and this is been continued while here and not a diabetic diet (11) Homeless Assessment/Plan: As per hx - Current Meds Current Meds: Current Medications Generic Name Dose Route Start Last Admin Trade Name Freq PRN Reason Stop Dose Admin Acetaminophen 650 - 975 mg 02/29/20 13:22 03/01/20 13:01 Tylenol PO 650 mg Q4HR PRN Administration PAIN Allopurinol 100 mg 02/25/20 09:00 03/01/20 08:43 Zyloprim PO 100 mg DAILY BRENDON Administration Aspirin 325 mg 02/29/20 17:00 03/01/20 08:44 Margot PO 325 mg BIDWM BRENDON Administration Calcium Carbonate/Glycine 500 mg 02/24/20 16:25 03/01/20 06:27 Tums PO 500 mg TID PRN Administration Heartburn Famotidine 20 mg 02/25/20 09:10 03/01/20 08:43 Pepcid PO 20 mg DAILY BRENDON Administration Ferrous Gluconate 324 mg 02/26/20 12:00 03/01/20 08:44 Fergon PO 324 mg DAILYWM BRENDON Administration Gabapentin 600 mg 02/24/20 22:00 03/01/20 13:01 Neurontin PO 600 mg TID BRENDON Administration Hydromorphone HCl 2 mg 02/28/20 11:50 03/01/20 13:02 Dilaudid (Vial) IVP 2 mg Q2H PRN Administration PAIN Sodium Chloride 250 mls @ 0 mls/hr 02/28/20 18:02 03/01/20 08:52 Normal Saline 0.9% IV 25 mls/hr Q24H PRN Administration TKO RATE TKO Insulin Aspart 3 - 11 unit 02/27/20 21:00 03/01/20 13:01 Novolog SUBQ 11 unit 0800,1200,1700,2100 BRENDON Administration Protocol Lorazepam 0.5 mg 02/25/20 17:09 03/01/20 08:45 Ativan PO 0.5 mg Q3H PRN Administration Anxiety Magnesium Oxide 800 mg 03/01/20 08:00 03/01/20 08:43 Mag Ox PO 800 mg DAILYWM BRENDON Administration Methadone HCl 5 mg 02/24/20 21:00 03/01/20 08:44 PO 5 mg BID BRENDON Administration Mineral Oil 1 applic 02/24/20 17:34 02/28/20 04:55 Cavilon TOP 1 applic PRN PRN Administration Skin Care Multivitamins/Minerals 1 tab 02/25/20 09:00 03/01/20 08:44 Theragran M PO 1 tab DAILYWM BRENDON Administration Nicotine 1 patch 02/24/20 17:00 03/01/20 08:46 Nicoderm TOP 1 patch DAILY BRENDON Administration Ondansetron HCl 4 mg 02/25/20 00:57 03/01/20 05:35 Zofran Odt TL 4 mg Q4HR PRN Administration Nausea / Vomiting Oxycodone HCl 5 mg 02/25/20 17:10 02/29/20 19:31 Roxicodone PO 5 mg Q2HR PRN Administration PAIN Oxycodone HCl 5 mg 02/29/20 13:22 03/01/20 10:00 Roxicodone PO 5 mg Q4HR PRN Administration PAIN Sodium Chloride 10 ml 02/29/20 17:00 03/01/20 08:47 Normal Saline Flush 0.9% IVP 10 ml 0100,0900,1700 BRENDON Administration Sodium Chloride 10 ml 02/29/20 13:22 03/01/20 13:02 Normal Saline Flush 0.9% IVP 10 ml PRN PRN Administration NEEDED PER PROVIDER ORDERS - Lab Result Fish Bone Diagrams: 03/01/20 05:05 03/01/20 05:05 - Additional Planning My Orders: My Active Orders 03/01/20 08:00 Magnesium Oxide [Mag Ox] 800 mg PO DAILYWM 03/01/20 Lunch Regular Diet [DIET] 03/02/20 05:00 BMP - BASIC METABOLIC PANEL [CHEM] DAILYLAB CBC - COMP BLD CT W/AUTO DIFF [HEME] DAILYLAB MAGNESIUM [CHEM] DAILYLAB 03/03/20 05:00 BMP - BASIC METABOLIC PANEL [CHEM] DAILYLAB CBC - COMP BLD CT W/AUTO DIFF [HEME] DAILYLAB 03/04/20 05:00 BMP - BASIC METABOLIC PANEL [CHEM] DAILYLAB CBC - COMP BLD CT W/AUTO DIFF [HEME] DAILYLAB Subjective - Subjective Patient Reports: Feeling Better Objective Vital Signs: Vital Signs - 24 hr 02/29/20 02/29/20 02/29/20 13:30 13:35 13:40 Temperature 36.1 C L 36.2 C L 36.2 C L Heart Rate 94 95 89 Heart Rate [ Brachial] Heart Rate [ Sitting] Heart Rate [ Supine] Respiratory 10 L 14 14 Rate Blood Pressure 123/82 H 137/92 H 127/94 H Blood Pressure [Right Brachial artery] Blood Pressure [Sitting] Blood Pressure [Supine] O2 Saturation 99 99 98 02/29/20 02/29/20 02/29/20 13:45 13:50 13:55 Temperature 36.3 C L 36.3 C L 36.3 C L Heart Rate 88 85 82 Heart Rate [ Brachial] Heart Rate [ Sitting] Heart Rate [ Supine] Respiratory 16 17 16 Rate Blood Pressure 136/96 H 138/91 H Blood Pressure [Right Brachial artery] Blood Pressure [Sitting] Blood Pressure [Supine] O2 Saturation 97 98 96 02/29/20 02/29/20 02/29/20 14:01 14:10 14:30 Temperature 36.3 C L 36.3 C L 36.0 C L Heart Rate 82 80 Heart Rate [ 77 Brachial] Heart Rate [ Sitting] Heart Rate [ Supine] Respiratory 14 14 18 Rate Blood Pressure 141/90 H 145/90 H Blood Pressure 153/85 H [Right Brachial artery] Blood Pressure [Sitting] Blood Pressure [Supine] O2 Saturation 96 98 97 02/29/20 02/29/20 02/29/20 14:45 15:00 15:30 Temperature 36.2 C L 36.6 C 36.1 C L Heart Rate Heart Rate [ 76 82 85 Brachial] Heart Rate [ Sitting] Heart Rate [ Supine] Respiratory 16 16 16 Rate Blood Pressure Blood Pressure 145/92 H 134/92 H 131/92 H [Right Brachial artery] Blood Pressure [Sitting] Blood Pressure [Supine] O2 Saturation 98 100 02/29/20 02/29/20 02/29/20 16:00 17:00 21:00 Temperature 36.1 C L 36.1 C L 36.7 C Heart Rate Heart Rate [ 98 88 Brachial] Heart Rate [ Sitting] Heart Rate [ Supine] Respiratory 16 18 18 Rate Blood Pressure Blood Pressure 133/99 H 116/86 H 126/80 [Right Brachial artery] Blood Pressure [Sitting] Blood Pressure [Supine] O2 Saturation 100 100 98 02/29/20 03/01/20 03/01/20 23:50 03:05 06:13 Temperature 36.7 C 36.9 C Heart Rate Heart Rate [ 87 90 95 Brachial] Heart Rate [ Sitting] Heart Rate [ Supine] Respiratory 16 16 Rate Blood Pressure Blood Pressure 137/75 H 157/88 H 136/83 H [Right Brachial artery] Blood Pressure [Sitting] Blood Pressure [Supine] O2 Saturation 98 96 03/01/20 03/01/20 03/01/20 08:00 11:20 11:56 Temperature 36.7 C 36.6 C Heart Rate Heart Rate [ 93 95 Brachial] Heart Rate [ 95 Sitting] Heart Rate [ 92 Supine] Respiratory 22 20 Rate Blood Pressure Blood Pressure 146/74 H 128/72 [Right Brachial artery] Blood Pressure 128/72 [Sitting] Blood Pressure 146/81 H [Supine] O2 Saturation 98 95 Oxygen O2 Source Room air I&O (Last 24 Hrs): Intake and Output Totals x24h 02/28/20 02/29/20 03/01/20 23:59 23:59 23:59 Intake Total 1560 1132 580 Output Total 401 500 300 Balance 1159 632 280 General: Alert, No acute distress HEENT: Atraumatic Neck: Supple Lymphatic: no adenopathy Neuro: Alert, Non Focal, Oriented Times 3 Cardiovascular: Regular rate, Normal S1, Normal S2 Respiratory: Chest non-tender, No respiratory distress Abdomen: Normal bowel sounds, Soft, No tenderness Extremities: Normal pulses - Results Results: Laboratory Results WBC 8.5 x10^3/uL (4.8-10.8) 03/01/20 05:05 RBC 2.65 10^6/uL (4.20-5.40) L 03/01/20 05:05 Hgb 8.5 g/dL (12.0-16.0) L 03/01/20 05:05 Hct 25.8 % (37.0-47.0) L 03/01/20 05:05 MCV 97.4 fL (81.0-99.0) 03/01/20 05:05 MCH 32.1 pg (27.0-31.0) H 03/01/20 05:05 MCHC 32.9 g/dL (32.0-36.0) 03/01/20 05:05 RDW 15.9 % (12.0-15.0) H 03/01/20 05:05 Plt Count 476 10^3/uL (130-450) H 03/01/20 05:05 MPV 10.4 fL (7.9-10.8) 03/01/20 05:05 Neut # (Auto) 5.4 10^3/uL (1.5-6.6) 03/01/20 05:05 Lymph # (Auto) 2.4 10^3/uL (1.5-3.5) 03/01/20 05:05 [place] # (Auto) 0.5 10^3/uL (0.0-1.0) 03/01/20 05:05 Eos # (Auto) 0.1 10^3/uL (0.0-0.7) 03/01/20 05:05 Baso # (Auto) 0.1 10^3/uL (0.0-0.1) 03/01/20 05:05 Absolute Nucleated RBC 0.00 x10^3/uL 03/01/20 05:05 Nucleated RBC % 0.0 /100WBC 03/01/20 05:05 PT 11.9 secs (9.9-12.6) 02/24/20 16:03 INR 1.0 (0.8-1.2) 02/24/20 16:03 Sodium 136 mmol/L (135-145) 03/01/20 05:05 Potassium 3.9 mmol/L (3.5-5.0) 03/01/20 05:05 Chloride 102 mmol/L (101-111) 03/01/20 05:05 Carbon Dioxide 28 mmol/L (21-32) 03/01/20 05:05 Anion Gap 6.0 (6-13) 03/01/20 05:05 BUN 14 mg/dL (6-20) 03/01/20 05:05 Creatinine 0.8 mg/dL (0.4-1.0) 03/01/20 05:05 Estimated GFR (MDRD) 75 (>89) L 03/01/20 05:05 Glucose 170 mg/dL (70-100) H 03/01/20 05:05 POC Whole Bld Glucose 328 mg/dL (70 - 100) H 03/01/20 11:46 Calcium 7.9 mg/dL (8.5-10.3) L 03/01/20 05:05 Phosphorus 3.0 mg/dL (2.5-4.6) 02/29/20 08:07 Magnesium 1.2 mg/dL (1.7-2.8) L 02/29/20 08:07 Iron 78 ug/dL (28-170) 02/26/20 04:45 TIBC 132 ug/dL (250-450) L 02/26/20 04:45 % Saturation 59 % (20-50) H 02/26/20 04:45 Transferrin 94 mg/dL (192-382) L 02/26/20 04:45 Total Bilirubin 0.7 mg/dL (0.2-1.0) 02/24/20 16:03 AST 32 IU/L (10-42) 02/24/20 16:03 ALT 36 IU/L (10-60) 02/24/20 16:03 Alkaline Phosphatase 627 IU/L (42-121) H 02/24/20 16:03 Total Protein 6.3 g/dL (6.7-8.2) L 02/24/20 16:03 Albumin 1.8 g/dL (3.2-5.5) L 02/24/20 16:03 Globulin 4.5 g/dL (2.1-4.2) H 02/24/20 16:03 Albumin/Globulin Ratio 0.4 (1.0-2.2) L 02/24/20 16:03 Vitamin B12 3526 pg/mL (180-914) H 02/26/20 04:45 Folate 9.14 ng/mL (5.90 - >24.8) 02/26/20 04:45 Stl Occult Blood (IFOB) NEGATIVE (NEGATIVE) 03/01/20 06:55 Coronavirus (PCR) NEGATIVE 02/21/20 14:40 Blood Type O POSITIVE 02/29/20 09:20 Antibody Screen NEGATIVE 02/29/20 09:20 Crossmatch IS Only See Detail 02/29/20 09:20 - Procedures Procedures: Procedures INSERTION OF INFUSION DEV INTO SUP VENA CAVA, PERC APPROACH (08/12/18) ABX Reporting Has patient been on IV antibiotics over the past 48 hours?: No Current Medications - Current Medications Current Medications: Active Medications Acetaminophen (Tylenol) 650 - 975 mg PO Q4HR PRN PRN Reason: PAIN Last Admin: 03/01/20 13:01 Dose: 650 mg Documented by: Allopurinol (Zyloprim) 100 mg PO DAILY [facility] Last Admin: 03/01/20 08:43 Dose: 100 mg Documented by: Aspirin (Margot) 325 mg PO BIDWM [facility] Last Admin: 03/01/20 08:44 Dose: 325 mg Documented by: Calcium Carbonate/Glycine (Tums) 500 mg PO TID PRN PRN Reason: Heartburn Last Admin: 03/01/20 06:27 Dose: 500 mg Documented by: Famotidine (Pepcid) 20 mg PO DAILY [facility] Last Admin: 03/01/20 08:43 Dose: 20 mg Documented by: Ferrous Gluconate (Fergon) 324 mg PO DAILYWM [facility] Last Admin: 03/01/20 08:44 Dose: 324 mg Documented by: Gabapentin (Neurontin) 600 mg PO TID [facility] Last Admin: 03/01/20 13:01 Dose: 600 mg Documented by: Hydromorphone HCl (Dilaudid (Vial)) 2 mg IVP Q2H PRN PRN Reason: PAIN Last Admin: 03/01/20 13:02 Dose: 2 mg Documented by: Sodium Chloride (Normal Saline 0.9%) 250 mls @ 0 mls/hr IV Q24H PRN PRN Reason: TKO RATE Last Admin: 03/01/20 08:52 Dose: 25 mls/hr Documented by: Insulin Aspart (Novolog) 3 - 11 unit SUBQ 0800,1200,1700,2100 [facility]; Protocol Last Admin: 03/01/20 13:01 Dose: 11 unit Documented by: Lorazepam (Ativan) 0.5 mg PO Q3H PRN PRN Reason: Anxiety Last Admin: 03/01/20 08:45 Dose: 0.5 mg Documented by: Magnesium Oxide (Mag Ox) 800 mg PO DAILYWM [facility] Last Admin: 03/01/20 08:43 Dose: 800 mg Documented by: Methadone HCl () 5 mg PO BID [facility] Last Admin: 03/01/20 08:44 Dose: 5 mg Documented by: Mineral Oil (Cavilon) 1 applic TOP PRN PRN PRN Reason: Skin Care Last Admin: 02/28/20 04:55 Dose: 1 applic Documented by: Multivitamins/Minerals (Theragran M) 1 tab PO DAILYWM [facility] Last Admin: 03/01/20 08:44 Dose: 1 tab Documented by: Nicotine (Nicoderm) 1 patch TOP DAILY [facility] Last Admin: 03/01/20 08:46 Dose: 1 patch Documented by: Ondansetron HCl (Zofran Odt) 4 mg TL Q4HR PRN PRN Reason: Nausea / Vomiting Last Admin: 03/01/20 05:35 Dose: 4 mg Documented by: Oxycodone HCl (Roxicodone) 5 mg PO Q2HR PRN PRN Reason: PAIN Last Admin: 02/29/20 19:31 Dose: 5 mg Documented by: Oxycodone HCl (Roxicodone) 5 mg PO Q4HR PRN PRN Reason: PAIN Last Admin: 03/01/20 10:00 Dose: 5 mg Documented by: Prochlorperazine Edisylate (Compazine Inj) 10 mg IVP Q6HR PRN PRN Reason: Nausea / Vomiting Senna (Senokot) 8.6 mg PO BID PRN PRN Reason: Constipation Sodium Chloride (Normal Saline Flush 0.9%) 10 ml IVP 0100,0900,1700 [facility] Last Admin: 03/01/20 08:47 Dose: 10 ml Documented by: Sodium Chloride (Normal Saline Flush 0.9%) 10 ml IVP PRN PRN PRN Reason: NEEDED PER PROVIDER ORDERS Last Admin: 03/01/20 13:02 Dose: 10 ml Documented by: Omeprazole 40 mg PO DAILY 08/12/18 Gabapentin 600 mg PO TID 10/28/19 allopurinoL [Allopurinol] 100 mg PO DAILY 10/28/19 Insulin Aspart [NovoLOG] 4 unit SQ TIDWM 02/09/20 Haloperidol Oral Soln [Haldol Oral Soln] 0.5 - 20 mg PO Q2H PRN 02/24/20 Insulin Glargine [Lantus Solostar] 5 unit SUBQ BID 02/24/20 LORazepam [Ativan] 0.5 - 2 mg PO Q2H PRN 02/24/20 Methadone 5 mg PO BID 02/24/20 Morphine Sulfate [Morphine Sulf Oral (Roxanol)] 5 mg PO Q1H PRN 02/24/20 Ondansetron [Ondansetron Odt] 4 mg PO Q8H PRN 02/24/20 Sennosides [Senna] 8.6 mg PO BID PRN 02/24/20 oxyCODONE [Roxicodone] 5 mg PO Q4H PRN 02/24/20
[2020-03-02] MEDS: HYDROmorphone 2 MG/ML VIAL IVP PRN ×8 (00:21→22:32)
[2020-03-02] MEDS: ONDANSETRON ODT 4 MG TABLET TL PRN (00:21)
[2020-03-02] MEDS: SODIUM CHLORIDE FLUSH 0.9% 10 ML SYRINGE IVP SCH ×3 (00:22→16:47)
[2020-03-02] MEDS: PROCHLORPERAZINE 10 MG/2 ML VIAL IVP PRN (02:36)
[2020-03-02 05:19] LABS: BASOPHILS # (AUTO) 0.1 10^3/uL (0.0-0.1); BASOPHILS % (AUTO) 0.4 %; EOSINOPHILS % (AUTO) 0.3 %; LYMPHOCYTES # (AUTO) 1.6 10^3/uL (1.5-3.5); LYMPHOCYTES % (AUTO) 13.5 %; MEAN CORPUSCULAR HEMOGLOBIN 32.6 pg (27.0-31.0); MEAN CORPUSCULAR HGB CONC 33.7 g/dL (32.0-36.0); MEAN CORPUSCULAR VOLUME 96.7 fL (81.0-99.0); MEAN PLATELET VOLUME 10.9 fL (7.9-10.8); MONOCYTES # (AUTO) 0.6 10^3/uL (0.0-1.0); MONOCYTES % (AUTO) 5.1 %; NEUTROPHILS # (AUTO) 9.3 10^3/uL (1.5-6.6); PLT - PLATELET COUNT 418 10^3/uL (130-450); RED BLOOD COUNT 2.15 10^6/uL (4.20-5.40); WHITE BLOOD COUNT 11.6 x10^3/uL (4.8-10.8)
[2020-03-02 05:21] LABS: CALCIUM 7.2 mg/dL (8.5-10.3); CREATININE 0.8 mg/dL (0.4-1.0); MAGNESIUM 1.3 mg/dL (1.7-2.8)
[2020-03-02] MEDS: GABAPENTIN 300 MG CAPSULE PO SCH ×3 (05:56→22:32)
[2020-03-02] MEDS: SODIUM CHLORIDE 0.9% 250 ML IV PRN (06:27)
[2020-03-02] MEDS ORDERED: MAGNESIUM SULFATE 2 GRAM 2 GM/50 ML BAG IV ONE (07:28)
[2020-03-02] MEDS ORDERED: SODIUM CHLORIDE 0.9% 500 ML IV ONE (09:22)
[2020-03-02] MEDS: ASPIRIN 325 MG TABLET PO SCH ×2 (09:23→16:46)
[2020-03-02] MEDS: MAGNESIUM OXIDE 400 MG TABLET PO SCH (09:23)
[2020-03-02] MEDS: MULTIVITAMIN W/MINERALS TABLET PO SCH (09:24)
[2020-03-02] MEDS: allopurinoL 100 MG TABLET PO SCH (09:24)
[2020-03-02] MEDS: METHADONE 5 MG TABLET PO SCH ×2 (09:25→20:34)
[2020-03-02] MEDS: FERROUS GLUCONATE 324 MG TABLET PO SCH (09:25)
[2020-03-02] MEDS: FAMOTIDINE 20 MG TABLET PO SCH (09:25)
[2020-03-02] MEDS: INSULIN ASPART 300 UNIT/3 ML PEN SUBQ SCH ×4 (09:29→20:35)
[2020-03-02] MEDS: oxyCODONE 5 MG TABLET PO PRN ×3 (09:30→20:34)
[2020-03-02] MEDS: NICOTINE 14 MG PATCH TOP SCH (09:31)
--- NOTE | 2020-03-02 11:35 | PROVIDER PROGRESS NOTE ---
Assessment/Plan - Problem List (1) Femur fracture, left Assessment/Plan: 03/02 This is date 2 post status of operation, Continue PT/OT, continue pain control, plan discharge on tomorrow for skilled nurse facility if possible. 03/01 This is day 1 status post of left hip repair, Patient is doing well. We will continue physical and occupational therapy treatment and evaluation for patient. Continue pain control, continue aspirin 325 twice daily for DVT prophylaxis. Consult with social work for planning discharge Patient is a status post surgery day 1 from left hip repair. We will continue consult with orthopedic, Pain control, DVT prophylaxis per surgeon, will continue physical therapist and occupational therapist. Social work is consulted For discharge placement. Fall precaution (2)anemia Patient hemoglobin is 7.0. Patient is status post of surgery, is likely from acute blood loss from surgery. We will transfuse her 1 unit of blood, continue H&H to monitor patient (3) Fall during current hospitalization Pt fell in bathroom on yesterday, on wet floor, per RN Mejia Cruz. Patient had left hip repair in the morning. Continue neuro checks. Fall precaution (4) FTT (failure to thrive) in adult Assessment/Plan: This patient was homeless. She had multiple admissions with protein malnutrition, poor decision-making, alcohol abuse, opiate excess abuse, cachectic, failure to thrive, cirrhosis. She was accepted by [facility] before. A new hospice referral was sent here. Social work was consulted for discharge placement (5) At risk for unsafe behavior Assessment/Plan: Including patient had a fall in the hospital. After surgery patient, pt will have PT/OT in the hospital, social work administrator was consulted for discharge planning (6) Severe protein-calorie malnutrition Assessment/Plan: Patient is a homeless status improved, she had a good appetite. (7) Alcoholic cirrhosis of liver Assessment/Plan: She has minimal ascites, lab test reveal normal INR and normal bili, AST, ALT. There has been no recent alcohol use even before this hospitalization we think (8) Opiate use Assessment/Plan: The patient had history of ingested excessive amounts of her newly prescribed opiates and meds that were ordered in her new Hospice status. She came in obtunded, was sleeping it off in the ER. (9) Chronic pain Assessment/Plan: Her pain was mostly abdominal pain, this precipitated many ER visits. She has known gallstones but does not have cholecystitis, has had many abd/pelvic imaging studies. (10) Diabetes mellitus with hyperglycemia 92,We will keep the same sliding scale, continue glucose monitor, continue hypoglycemia protocol Because the patient has multiple times of Hypoglycemia so patient insulin is removed from his home medication list. Because of her very good appetite here, her glucose levels were running 300 400, since she had been off her Lantus and regular insulin and metformin before this hospitalization. Those medications had been weaned down over the previous several months because of many episodes of hypoglycemia. Currently will use just low doses of Lantus and a sliding scale of insulin for c overage. She was put on a regular diet for "comfort" when [facility] took over, and this is been continued while here and not a diabetic diet (11) Homeless Assessment/Plan: As per hx - Current Meds Current Meds: Current Medications Generic Name Dose Route Start Last Admin Trade Name Freq PRN Reason Stop Dose Admin Acetaminophen 650 - 975 mg 02/29/20 13:22 03/01/20 13:01 Tylenol PO 650 mg Q4HR PRN Administration PAIN Allopurinol 100 mg 02/25/20 09:00 03/02/20 09:24 Zyloprim PO 100 mg DAILY BRENDON Administration Aspirin 325 mg 02/29/20 17:00 03/02/20 09:23 Margot PO 325 mg BIDWM BRENDON Administration Calcium Carbonate/Glycine 500 mg 02/24/20 16:25 03/01/20 21:36 Tums PO 500 mg TID PRN Administration Heartburn Famotidine 20 mg 02/25/20 09:10 03/02/20 09:25 Pepcid PO 20 mg DAILY BRENDON Administration Ferrous Gluconate 324 mg 02/26/20 12:00 03/02/20 09:25 Fergon PO 324 mg DAILYWM BRENDON Administration Gabapentin 600 mg 02/24/20 22:00 03/02/20 05:56 Neurontin PO 600 mg TID BRENDON Administration Hydromorphone HCl 2 mg 02/28/20 11:50 03/02/20 05:56 Dilaudid (Vial) IVP 2 mg Q2H PRN Administration PAIN Sodium Chloride 250 mls @ 0 mls/hr 02/28/20 18:02 03/02/20 06:27 Normal Saline 0.9% IV 25 mls/hr Q24H PRN Administration TKO RATE TKO Insulin Aspart 3 - 11 unit 02/27/20 21:00 03/02/20 09:29 Novolog SUBQ 5 unit 0800,1200,1700,2100 BRENDON Administration Protocol Lorazepam 0.5 mg 02/25/20 17:09 03/01/20 08:45 Ativan PO 0.5 mg Q3H PRN Administration Anxiety Magnesium Oxide 800 mg 03/01/20 08:00 03/02/20 09:23 Mag Ox PO 800 mg DAILYWM BRENDON Administration Methadone HCl 5 mg 02/24/20 21:00 03/02/20 09:25 PO 5 mg BID BRENDON Administration Mineral Oil 1 applic 02/24/20 17:34 02/28/20 04:55 Cavilon TOP 1 applic PRN PRN Administration Skin Care Multivitamins/Minerals 1 tab 02/25/20 09:00 03/02/20 09:24 Theragran M PO 1 tab DAILYWM BRENDON Administration Nicotine 1 patch 02/24/20 17:00 03/02/20 09:31 Nicoderm TOP 1 patch DAILY BRENDON Administration Ondansetron HCl 4 mg 02/25/20 00:57 03/02/20 00:21 Zofran Odt TL 4 mg Q4HR PRN Administration Nausea / Vomiting Oxycodone HCl 5 mg 02/29/20 13:22 03/02/20 09:30 Roxicodone PO 5 mg Q4HR PRN Administration PAIN Prochlorperazine Edisylate 10 mg 02/29/20 13:22 03/02/20 02:36 Compazine Inj IVP 10 mg Q6HR PRN Administration Nausea / Vomiting Sodium Chloride 10 ml 02/29/20 17:00 03/02/20 09:30 Normal Saline Flush 0.9% IVP 10 ml 0100,0900,1700 BRENDON Administration Sodium Chloride 10 ml 02/29/20 13:22 03/01/20 18:44 Normal Saline Flush 0.9% IVP 10 ml PRN PRN Administration NEEDED PER PROVIDER ORDERS - Lab Result Fish Bone Diagrams: 03/02/20 04:35 03/02/20 04:35 - Additional Planning My Orders: My Active Orders 03/01/20 Dinner Regular Diet [DIET] 03/02/20 UA w/ MICROSCOPIC, CULT IF [URIN] Urgent 03/02/20 13:00 H&H [HEMOGLOBIN AND HEMATOCRIT] [HEME] Timed 03/02/20 21:00 Insulin Glargine [Lantus Solostar] 5 unit SUBQ QPM 03/03/20 05:00 BMP - BASIC METABOLIC PANEL [CHEM] DAILYLAB CBC - COMP BLD CT W/AUTO DIFF [HEME] DAILYLAB MAGNESIUM [CHEM] DAILYLAB 03/04/20 05:00 BMP - BASIC METABOLIC PANEL [CHEM] DAILYLAB CBC - COMP BLD CT W/AUTO DIFF [HEME] DAILYLAB Subjective - Subjective Patient Reports: Feeling Better Objective Vital Signs: Vital Signs - 24 hr 03/01/20 03/01/20 03/01/20 11:56 16:00 17:00 Temperature 36.6 C 36.8 C 36.8 C Heart Rate Heart Rate [ 95 95 95 Brachial] Respiratory 20 18 18 Rate Blood Pressure Blood Pressure 128/72 135/81 H 135/81 H [Right Brachial artery] O2 Saturation 95 100 100 03/01/20 03/01/20 03/02/20 20:57 23:55 03:05 Temperature 36.8 C 36.8 C 36.8 C Heart Rate Heart Rate [ 99 95 96 Brachial] Respiratory 18 16 16 Rate Blood Pressure Blood Pressure 145/77 H 151/90 H 149/83 H [Right Brachial artery] O2 Saturation 100 97 98 03/02/20 03/02/20 03/02/20 07:31 09:19 09:35 Temperature 37 C 36.9 C 36.7 C Heart Rate 91 85 Heart Rate [ 88 Brachial] Respiratory 16 18 12 Rate Blood Pressure 153/75 H 162/81 H Blood Pressure 137/80 H [Right Brachial artery] O2 Saturation 99 Oxygen O2 Source Room air I&O (Last 24 Hrs): Intake and Output Totals x24h 02/29/20 03/01/20 03/02/20 23:59 23:59 23:59 Intake Total 1132 1960.000 657.917 Output Total 500 600 450 Balance 632 1360.000 207.917 General: Alert, No acute distress HEENT: Atraumatic Neck: Supple Lymphatic: no adenopathy Neuro: Alert, Non Focal Cardiovascular: Regular rate, Normal S1, Normal S2 Respiratory: Chest non-tender, No respiratory distress Abdomen: Normal bowel sounds, Soft, No tenderness Extremities: Normal pulses - Results Results: Laboratory Results WBC 11.6 x10^3/uL (4.8-10.8) H 03/02/20 04:35 RBC 2.15 10^6/uL (4.20-5.40) L 03/02/20 04:35 Hgb 7.0 g/dL (12.0-16.0) L* 03/02/20 04:35 Hct 20.8 % (37.0-47.0) L 03/02/20 04:35 MCV 96.7 fL (81.0-99.0) 03/02/20 04:35 MCH 32.6 pg (27.0-31.0) H 03/02/20 04:35 MCHC 33.7 g/dL (32.0-36.0) 03/02/20 04:35 RDW 16.0 % (12.0-15.0) H 03/02/20 04:35 Plt Count 418 10^3/uL (130-450) 03/02/20 04:35 MPV 10.9 fL (7.9-10.8) H 03/02/20 04:35 Neut # (Auto) 9.3 10^3/uL (1.5-6.6) H 03/02/20 04:35 Lymph # (Auto) 1.6 10^3/uL (1.5-3.5) 03/02/20 04:35 [place] # (Auto) 0.6 10^3/uL (0.0-1.0) 03/02/20 04:35 Eos # (Auto) 0.0 10^3/uL (0.0-0.7) 03/02/20 04:35 Baso # (Auto) 0.1 10^3/uL (0.0-0.1) 03/02/20 04:35 Absolute Nucleated RBC 0.00 x10^3/uL 03/02/20 04:35 Nucleated RBC % 0.0 /100WBC 03/02/20 04:35 PT 11.9 secs (9.9-12.6) 02/24/20 16:03 INR 1.0 (0.8-1.2) 02/24/20 16:03 Sodium 131 mmol/L (135-145) L 03/02/20 04:35 Potassium 4.2 mmol/L (3.5-5.0) 03/02/20 04:35 Chloride 102 mmol/L (101-111) 03/02/20 04:35 Carbon Dioxide 26 mmol/L (21-32) 03/02/20 04:35 Anion Gap 3.0 (6-13) L 03/02/20 04:35 BUN 16 mg/dL (6-20) 03/02/20 04:35 Creatinine 0.8 mg/dL (0.4-1.0) 03/02/20 04:35 Estimated GFR (MDRD) 75 (>89) L 03/02/20 04:35 Glucose 267 mg/dL (70-100) H 03/02/20 04:35 POC Whole Bld Glucose 206 mg/dL (70 - 100) H 03/02/20 10:53 Calcium 7.2 mg/dL (8.5-10.3) L 03/02/20 04:35 Phosphorus 3.0 mg/dL (2.5-4.6) 02/29/20 08:07 Magnesium 1.3 mg/dL (1.7-2.8) L 03/02/20 04:35 Iron 78 ug/dL (28-170) 02/26/20 04:45 TIBC 132 ug/dL (250-450) L 02/26/20 04:45 % Saturation 59 % (20-50) H 02/26/20 04:45 Transferrin 94 mg/dL (192-382) L 02/26/20 04:45 Total Bilirubin 0.7 mg/dL (0.2-1.0) 02/24/20 16:03 AST 32 IU/L (10-42) 02/24/20 16:03 ALT 36 IU/L (10-60) 02/24/20 16:03 Alkaline Phosphatase 627 IU/L (42-121) H 02/24/20 16:03 Total Protein 6.3 g/dL (6.7-8.2) L 02/24/20 16:03 Albumin 1.8 g/dL (3.2-5.5) L 02/24/20 16:03 Globulin 4.5 g/dL (2.1-4.2) H 02/24/20 16:03 Albumin/Globulin Ratio 0.4 (1.0-2.2) L 02/24/20 16:03 Vitamin B12 3526 pg/mL (180-914) H 02/26/20 04:45 Folate 9.14 ng/mL (5.90 - >24.8) 02/26/20 04:45 Stl Occult Blood (IFOB) NEGATIVE (NEGATIVE) 03/01/20 06:55 Coronavirus (PCR) NEGATIVE 02/21/20 14:40 Blood Type O POSITIVE 02/29/20 09:20 Antibody Screen NEGATIVE 02/29/20 09:20 Crossmatch IS Only See Detail 02/29/20 09:20 - Procedures Procedures: Procedures INSERTION OF INFUSION DEV INTO SUP VENA CAVA, PERC APPROACH (08/12/18) ABX Reporting Has patient been on IV antibiotics over the past 48 hours?: No Current Medications - Current Medications Current Medications: Active Medications Acetaminophen (Tylenol) 650 - 975 mg PO Q4HR PRN PRN Reason: PAIN Last Admin: 03/01/20 13:01 Dose: 650 mg Documented by: Allopurinol (Zyloprim) 100 mg PO DAILY [facility] Last Admin: 03/02/20 09:24 Dose: 100 mg Documented by: Aspirin (Margot) 325 mg PO BIDWM [facility] Last Admin: 03/02/20 09:23 Dose: 325 mg Documented by: Calcium Carbonate/Glycine (Tums) 500 mg PO TID PRN PRN Reason: Heartburn Last Admin: 03/01/20 21:36 Dose: 500 mg Documented by: Famotidine (Pepcid) 20 mg PO DAILY [facility] Last Admin: 03/02/20 09:25 Dose: 20 mg Documented by: Ferrous Gluconate (Fergon) 324 mg PO DAILYWM [facility] Last Admin: 03/02/20 09:25 Dose: 324 mg Documented by: Gabapentin (Neurontin) 600 mg PO TID [facility] Last Admin: 03/02/20 05:56 Dose: 600 mg Documented by: Hydromorphone HCl (Dilaudid (Vial)) 2 mg IVP Q2H PRN PRN Reason: PAIN Last Admin: 03/02/20 05:56 Dose: 2 mg Documented by: Sodium Chloride (Normal Saline 0.9%) 250 mls @ 0 mls/hr IV Q24H PRN PRN Reason: TKO RATE Last Admin: 03/02/20 06:27 Dose: 25 mls/hr Documented by: Insulin Aspart (Novolog) 3 - 11 unit SUBQ 0800,1200,1700,2100 [facility]; Protocol Last Admin: 03/02/20 09:29 Dose: 5 unit Documented by: Insulin Glargine (Lantus Solostar) 5 unit SUBQ QPM [facility] Lorazepam (Ativan) 0.5 mg PO Q3H PRN PRN Reason: Anxiety Last Admin: 03/01/20 08:45 Dose: 0.5 mg Documented by: Magnesium Oxide (Mag Ox) 800 mg PO DAILYWM [facility] Last Admin: 03/02/20 09:23 Dose: 800 mg Documented by: Methadone HCl () 5 mg PO BID [facility] Last Admin: 03/02/20 09:25 Dose: 5 mg Documented by: Mineral Oil (Cavilon) 1 applic TOP PRN PRN PRN Reason: Skin Care Last Admin: 02/28/20 04:55 Dose: 1 applic Documented by: Multivitamins/Minerals (Theragran M) 1 tab PO DAILYWM [facility] Last Admin: 03/02/20 09:24 Dose: 1 tab Documented by: Nicotine (Nicoderm) 1 patch TOP DAILY [facility] Last Admin: 03/02/20 09:31 Dose: 1 patch Documented by: Ondansetron HCl (Zofran Odt) 4 mg TL Q4HR PRN PRN Reason: Nausea / Vomiting Last Admin: 03/02/20 00:21 Dose: 4 mg Documented by: Oxycodone HCl (Roxicodone) 5 mg PO Q4HR PRN PRN Reason: PAIN Last Admin: 03/02/20 09:30 Dose: 5 mg Documented by: Prochlorperazine Edisylate (Compazine Inj) 10 mg IVP Q6HR PRN PRN Reason: Nausea / Vomiting Last Admin: 03/02/20 02:36 Dose: 10 mg Documented by: Senna (Senokot) 8.6 mg PO BID PRN PRN Reason: Constipation Sodium Chloride (Normal Saline Flush 0.9%) 10 ml IVP 0100,0900,1700 [facility] Last Admin: 03/02/20 09:30 Dose: 10 ml Documented by: Sodium Chloride (Normal Saline Flush 0.9%) 10 ml IVP PRN PRN PRN Reason: NEEDED PER PROVIDER ORDERS Last Admin: 03/01/20 18:44 Dose: 10 ml Documented by: Omeprazole 40 mg PO DAILY 08/12/18 Gabapentin 600 mg PO TID 10/28/19 allopurinoL [Allopurinol] 100 mg PO DAILY 10/28/19 Insulin Aspart [NovoLOG] 4 unit SQ TIDWM 02/09/20 Haloperidol Oral Soln [Haldol Oral Soln] 0.5 - 20 mg PO Q2H PRN 02/24/20 Insulin Glargine [Lantus Solostar] 5 unit SUBQ BID 02/24/20 LORazepam [Ativan] 0.5 - 2 mg PO Q2H PRN 02/24/20 Methadone 5 mg PO BID 02/24/20 Morphine Sulfate [Morphine Sulf Oral (Roxanol)] 5 mg PO Q1H PRN 02/24/20 Ondansetron [Ondansetron Odt] 4 mg PO Q8H PRN 02/24/20 Sennosides [Senna] 8.6 mg PO BID PRN 02/24/20 oxyCODONE [Roxicodone] 5 mg PO Q4H PRN 02/24/20
[2020-03-02] MEDS: SODIUM CHLORIDE FLUSH 0.9% 10 ML SYRINGE IVP PRN ×2 (12:24→14:26)
[2020-03-02 12:32] LABS: BILIRUBIN,URINE NEGATIVE (NEGATIVE); GLUCOSE, URINE (UA) 250 mg/dL (NEGATIVE); KETONES,URINE (UA) NEGATIVE (NEGATIVE); LEUKOCYTE ESTERASE, URINE NEGATIVE (NEGATIVE); NITRITE,URINE NEGATIVE (NEGATIVE); OCCULT BLOOD,URINE MODERATE (NEGATIVE); PH,URINE 5.5 PH (5.0-7.5); PROTEIN,URINE NEGATIVE (NEGATIVE); UROBILINOGEN,URINE 0.2 (NORMAL) E.U./dL (NORMAL)
[2020-03-02 12:35] LABS: CLARITY,URINE CLEAR (CLEAR)
[2020-03-02 12:42] LABS: BACTERIA,URINE Rare /HPF (None Seen); SQUAMOUS EPITHELIAL CELL,UR MANY Squamous (<= Few)
[2020-03-02 13:29] LABS: HGB - HEMOGLOBIN 10.4 g/dL (12.0-16.0)
[2020-03-02] MEDS: CALCIUM CARBONATE CHEW 500 MG TABLET PO PRN (14:26)
[2020-03-02] MEDS: GI COCKTAIL 120 ML BOTTLE PO PRN ×2 (16:46→20:34)
[2020-03-02] MEDS: CALCIUM CARBONATE CHEW 500 MG TABLET PO SCH (20:34)
[2020-03-02] MEDS: LORazepam 0.5 MG TABLET PO PRN (20:34)
[2020-03-02] MEDS ORDERED: INSULIN GLARGINE 300 UNIT/3 ML PEN SUBQ SCH (21:00)
[2020-03-02 22:01] LABS: HGB - HEMOGLOBIN 9.8 g/dL (12.0-16.0)
[2020-03-02] MEDS ORDERED: METOPROLOL 5 MG/5 ML VIAL IVP STA (22:22)
[2020-03-02] MEDS: METOPROLOL TARTRATE 25 MG TABLET PO SCH (22:36)
[2020-03-03] MEDS: SODIUM CHLORIDE FLUSH 0.9% 10 ML SYRINGE IVP SCH ×4 (00:51→23:56)
[2020-03-03] MEDS: HYDROmorphone 2 MG/ML VIAL IVP PRN ×6 (01:11→16:04)
[2020-03-03] MEDS: SODIUM CHLORIDE 0.9% 250 ML IV PRN (04:53)
[2020-03-03 05:15] LABS: BASOPHILS % (AUTO) 0.3 %; EOSINOPHILS % (AUTO) 0.2 %; HGB - HEMOGLOBIN 8.8 g/dL (12.0-16.0); LYMPHOCYTES # (AUTO) 2.5 10^3/uL (1.5-3.5); LYMPHOCYTES % (AUTO) 19.3 %; MEAN CORPUSCULAR HEMOGLOBIN 30.9 pg (27.0-31.0); MEAN CORPUSCULAR HGB CONC 32.7 g/dL (32.0-36.0); MEAN CORPUSCULAR VOLUME 94.4 fL (81.0-99.0); MEAN PLATELET VOLUME 10.8 fL (7.9-10.8); MONOCYTES # (AUTO) 1.1 10^3/uL (0.0-1.0); MONOCYTES % (AUTO) 8.5 %; NEUTROPHILS # (AUTO) 9.1 10^3/uL (1.5-6.6); NEUTROPHILS % (AUTO) 71.1 %; PLT - PLATELET COUNT 395 10^3/uL (130-450); RED BLOOD COUNT 2.85 10^6/uL (4.20-5.40); RED CELL DISTRIBUTION WIDTH 16.4 % (12.0-15.0); WHITE BLOOD COUNT 12.7 x10^3/uL (4.8-10.8)
[2020-03-03 05:33] LABS: CALCIUM 7.5 mg/dL (8.5-10.3); CREATININE 0.7 mg/dL (0.4-1.0); MAGNESIUM 1.7 mg/dL (1.7-2.8)
[2020-03-03] MEDS: GABAPENTIN 300 MG CAPSULE PO SCH ×3 (05:51→21:21)
--- NOTE | 2020-03-03 07:29 | PROVIDER PROGRESS NOTE ---
Subjective - General Admit Date: 02/28/20 Procedure Date: 02/29/20 Post Op Days: 3 - Review of Systems Wound/Incisions: positive: Healing well, Dressing dry and intact General: positive: No symptoms Musculoskeletal: positive: Other (progressing well with physical therapy) - Other Other Information/Narrative: alert, oriented; pain controlled well to left hip. No clinical deformity to left leg; neurovascular intact left leg Objective - Patient Data Vital Signs: Vital Signs x48h Temp Pulse Resp BP Pulse Ox 03/03/20 03:04 36.9 C 82 16 142/82 H 96 03/02/20 23:45 36.6 C 79 16 144/86 H 99 Weight: Weight 03/01/20 03/02/20 03/03/20 23:59 23:59 23:59 Weight (kg) 36.5 kg 36 kg 47.5 kg Intake & Output: Intake and Output Totals x24h 03/01/20 03/02/20 03/03/20 23:59 23:59 23:59 Intake Total 6591.359 2309.917 720 Output Total 600 1170 650 Balance 1360.000 757.917 70 - Lab Results Lab Results: 03/03/20 04:40 03/03/20 04:40 Other Lab Results: Lab Results x24hrs 03/03/20 03/03/20 03/02/20 Range/Units 04:40 04:40 21:56 WBC 12.7 H (4.8-10.8) x10^3/uL RBC 2.85 L (4.20-5.40) 10^6/uL Hgb 8.8 L 9.8 L (12.0-16.0) g/dL Hct 26.9 L 30.2 L (37.0-47.0) % MCV 94.4 (81.0-99.0) fL MCH 30.9 (27.0-31.0) pg MCHC 32.7 (32.0-36.0) g/dL RDW 16.4 H (12.0-15.0) % Plt Count 395 (130-450) 10^3/uL MPV 10.8 (7.9-10.8) fL Neut # (Auto) 9.1 H (1.5-6.6) 10^3/uL Lymph # (Auto) 2.5 (1.5-3.5) 10^3/uL [place] # (Auto) 1.1 H (0.0-1.0) 10^3/uL Eos # (Auto) 0.0 (0.0-0.7) 10^3/uL Baso # (Auto) 0.0 (0.0-0.1) 10^3/uL Absolute Nucleated RBC 0.00 x10^3/uL Nucleated RBC % 0.0 /100WBC Sodium 134 L (135-145) mmol/L Potassium 4.0 (3.5-5.0) mmol/L Chloride 104 (101-111) mmol/L Carbon Dioxide 26 (21-32) mmol/L Anion Gap 4.0 L (6-13) BUN 15 (6-20) mg/dL Creatinine 0.7 (0.4-1.0) mg/dL Estimated GFR (MDRD) 88 L (>89) Glucose 71 (70-100) mg/dL POC Whole Bld Glucose (70 - 100) mg/dL Calcium 7.5 L (8.5-10.3) mg/dL Magnesium 1.7 (1.7-2.8) mg/dL Urine Color Urine Clarity (CLEAR) Urine pH (5.0-7.5) PH Ur Specific [place] (1.002-1.030) Urine Protein (NEGATIVE) mg/dL Urine Glucose (UA) (NEGATIVE) mg/dL Urine Ketones (NEGATIVE) mg/dL Urine Occult Blood (NEGATIVE) Urine Nitrite (NEGATIVE) Urine Bilirubin (NEGATIVE) Urine Urobilinogen (NORMAL) E.U./dL Ur Leukocyte Esterase (NEGATIVE) Urine RBC (0-5) /HPF Urine WBC (0-5) /HPF Ur Squamous Epith Cells (<= Few) Urine Bacteria (None Seen) /HPF Urine Culture Comments Blood Type Antibody Screen Crossmatch IS Only 03/02/20 03/02/20 03/02/20 Range/Units 20:27 16:39 13:10 WBC (4.8-10.8) x10^3/uL RBC (4.20-5.40) 10^6/uL Hgb 10.4 L (12.0-16.0) g/dL Hct 32.9 L (37.0-47.0) % MCV (81.0-99.0) fL MCH (27.0-31.0) pg MCHC (32.0-36.0) g/dL RDW (12.0-15.0) % Plt Count (130-450) 10^3/uL MPV (7.9-10.8) fL Neut # (Auto) (1.5-6.6) 10^3/uL Lymph # (Auto) (1.5-3.5) 10^3/uL [place] # (Auto) (0.0-1.0) 10^3/uL Eos # (Auto) (0.0-0.7) 10^3/uL Baso # (Auto) (0.0-0.1) 10^3/uL Absolute Nucleated RBC x10^3/uL Nucleated RBC % /100WBC Sodium (135-145) mmol/L Potassium (3.5-5.0) mmol/L Chloride (101-111) mmol/L Carbon Dioxide (21-32) mmol/L Anion Gap (6-13) BUN (6-20) mg/dL Creatinine (0.4-1.0) mg/dL Estimated GFR (MDRD) (>89) Glucose (70-100) mg/dL POC Whole Bld Glucose 202 H 169 H (70 - 100) mg/dL Calcium (8.5-10.3) mg/dL Magnesium (1.7-2.8) mg/dL Urine Color Urine Clarity (CLEAR) Urine pH (5.0-7.5) PH Ur Specific [place] (1.002-1.030) Urine Protein (NEGATIVE) mg/dL Urine Glucose (UA) (NEGATIVE) mg/dL Urine Ketones (NEGATIVE) mg/dL Urine Occult Blood (NEGATIVE) Urine Nitrite (NEGATIVE) Urine Bilirubin (NEGATIVE) Urine Urobilinogen (NORMAL) E.U./dL Ur Leukocyte Esterase (NEGATIVE) Urine RBC (0-5) /HPF Urine WBC (0-5) /HPF Ur Squamous Epith Cells (<= Few) Urine Bacteria (None Seen) /HPF Urine Culture Comments Blood Type Antibody Screen Crossmatch IS Only 03/02/20 03/02/20 03/02/20 Range/Units 12:13 10:53 07:27 WBC (4.8-10.8) x10^3/uL RBC (4.20-5.40) 10^6/uL Hgb (12.0-16.0) g/dL Hct (37.0-47.0) % MCV (81.0-99.0) fL MCH (27.0-31.0) pg MCHC (32.0-36.0) g/dL RDW (12.0-15.0) % Plt Count (130-450) 10^3/uL MPV (7.9-10.8) fL Neut # (Auto) (1.5-6.6) 10^3/uL Lymph # (Auto) (1.5-3.5) 10^3/uL [place] # (Auto) (0.0-1.0) 10^3/uL Eos # (Auto) (0.0-0.7) 10^3/uL Baso # (Auto) (0.0-0.1) 10^3/uL Absolute Nucleated RBC x10^3/uL Nucleated RBC % /100WBC Sodium (135-145) mmol/L Potassium (3.5-5.0) mmol/L Chloride (101-111) mmol/L Carbon Dioxide (21-32) mmol/L Anion Gap (6-13) BUN (6-20) mg/dL Creatinine (0.4-1.0) mg/dL Estimated GFR (MDRD) (>89) Glucose (70-100) mg/dL POC Whole Bld Glucose 206 H 193 H (70 - 100) mg/dL Calcium (8.5-10.3) mg/dL Magnesium (1.7-2.8) mg/dL Urine Color YELLOW Urine Clarity CLEAR (CLEAR) Urine pH 5.5 (5.0-7.5) PH Ur Specific [place] 1.025 (1.002-1.030) Urine Protein NEGATIVE (NEGATIVE) mg/dL Urine Glucose (UA) 250 H (NEGATIVE) mg/dL Urine Ketones NEGATIVE (NEGATIVE) mg/dL Urine Occult Blood MODERATE H (NEGATIVE) Urine Nitrite NEGATIVE (NEGATIVE) Urine Bilirubin NEGATIVE (NEGATIVE) Urine Urobilinogen 0.2 (NORMAL) (NORMAL) E.U./dL Ur Leukocyte Esterase NEGATIVE (NEGATIVE) Urine RBC 6-10 H (0-5) /HPF Urine WBC 4-5 (0-5) /HPF Ur Squamous Epith Cells MANY Squamous H (<= Few) Urine Bacteria Rare (None Seen) /HPF Urine Culture Comments NOT INDICATED Blood Type Antibody Screen Crossmatch IS Only 02/29/20 Range/Units 09:20 WBC (4.8-10.8) x10^3/uL RBC (4.20-5.40) 10^6/uL Hgb (12.0-16.0) g/dL Hct (37.0-47.0) % MCV (81.0-99.0) fL MCH (27.0-31.0) pg MCHC (32.0-36.0) g/dL RDW (12.0-15.0) % Plt Count (130-450) 10^3/uL MPV (7.9-10.8) fL Neut # (Auto) (1.5-6.6) 10^3/uL Lymph # (Auto) (1.5-3.5) 10^3/uL [place] # (Auto) (0.0-1.0) 10^3/uL Eos # (Auto) (0.0-0.7) 10^3/uL Baso # (Auto) (0.0-0.1) 10^3/uL Absolute Nucleated RBC x10^3/uL Nucleated RBC % /100WBC Sodium (135-145) mmol/L Potassium (3.5-5.0) mmol/L Chloride (101-111) mmol/L Carbon Dioxide (21-32) mmol/L Anion Gap (6-13) BUN (6-20) mg/dL Creatinine (0.4-1.0) mg/dL Estimated GFR (MDRD) (>89) Glucose (70-100) mg/dL POC Whole Bld Glucose (70 - 100) mg/dL Calcium (8.5-10.3) mg/dL Magnesium (1.7-2.8) mg/dL Urine Color Urine Clarity (CLEAR) Urine pH (5.0-7.5) PH Ur Specific [place] (1.002-1.030) Urine Protein (NEGATIVE) mg/dL Urine Glucose (UA) (NEGATIVE) mg/dL Urine Ketones (NEGATIVE) mg/dL Urine Occult Blood (NEGATIVE) Urine Nitrite (NEGATIVE) Urine Bilirubin (NEGATIVE) Urine Urobilinogen (NORMAL) E.U./dL Ur Leukocyte Esterase (NEGATIVE) Urine RBC (0-5) /HPF Urine WBC (0-5) /HPF Ur Squamous Epith Cells (<= Few) Urine Bacteria (None Seen) /HPF Urine Culture Comments Blood Type O POSITIVE Antibody Screen NEGATIVE Crossmatch IS Only See Detail - Current Medications Current Medications: Current Medications Generic Name Dose Route Start Last Admin Trade Name Freq PRN Reason Stop Dose Admin Acetaminophen 650 - 975 mg 02/29/20 13:22 03/01/20 13:01 Tylenol PO 650 mg Q4HR PRN Administration PAIN Allopurinol 100 mg 02/25/20 09:00 03/02/20 09:24 Zyloprim PO 100 mg DAILY [facility]ON Administration Aspirin 325 mg 02/29/20 17:00 03/02/20 16:46 Margot PO 325 mg BIDWM [facility] Administration Calcium Carbonate/Glycine 500 mg 03/02/20 21:00 03/02/20 20:34 Tums PO 500 mg BID [facility] Administration Famotidine 20 mg 02/25/20 09:10 03/02/20 09:25 Pepcid PO 20 mg DAILY [facility] Administration Ferrous Gluconate 324 mg 02/26/20 12:00 03/02/20 09:25 Fergon PO 324 mg DAILYWM [facility] Administration Gabapentin 600 mg 02/24/20 22:00 03/03/20 05:51 Neurontin PO 600 mg TID BRENDON Administration Hydromorphone HCl 2 mg 02/28/20 11:50 03/03/20 05:14 Dilaudid (Vial) IVP 2 mg Q2H PRN Administration PAIN Sodium Chloride 250 mls @ 0 mls/hr 02/28/20 18:02 03/03/20 04:53 Normal Saline 0.9% IV 25 mls/hr Q24H PRN Administration TKO RATE TKO Insulin Aspart 1 - 9 unit 03/02/20 17:00 03/02/20 20:35 Novolog SUBQ 3 unit 0800,1200,1700,2100 BRENDON Administration Protocol Insulin Glargine 5 unit 03/02/20 21:00 03/02/20 20:36 Lantus Solostar SUBQ 5 unit QPM BRENDON Administration Lorazepam 0.5 mg 02/25/20 17:09 03/02/20 20:34 Ativan PO 0.5 mg Q3H PRN Administration Anxiety Magnesium Oxide 800 mg 03/01/20 08:00 03/02/20 09:23 Mag Ox PO 800 mg DAILYWM BRENDON Administration Methadone HCl 5 mg 02/24/20 21:00 03/02/20 20:34 PO 5 mg BID BRENDON Administration Metoprolol Tartrate 25 mg 03/02/20 23:00 03/02/20 22:36 Lopressor PO 25 mg BID BRENDON Administration Mineral Oil 1 applic 02/24/20 17:34 02/28/20 04:55 Cavilon TOP 1 applic PRN PRN Administration Skin Care Multi-Ingredient Mouthwash/Gargle 30 ml 03/02/20 16:17 03/02/20 20:34 PO 30 ml Q4H PRN Administration Abdominal Pain Multivitamins/Minerals 1 tab 02/25/20 09:00 03/02/20 09:24 Theragran M PO 1 tab DAILYWM BRENDON Administration Nicotine 1 patch 02/24/20 17:00 03/02/20 09:31 Nicoderm TOP 1 patch DAILY BRENDON Administration Ondansetron HCl 4 mg 02/25/20 00:57 03/02/20 00:21 Zofran Odt TL 4 mg Q4HR PRN Administration Nausea / Vomiting Oxycodone HCl 5 mg 02/29/20 13:22 03/02/20 20:34 Roxicodone PO 5 mg Q4HR PRN Administration PAIN Prochlorperazine Edisylate 10 mg 02/29/20 13:22 03/02/20 02:36 Compazine Inj IVP 10 mg Q6HR PRN Administration Nausea / Vomiting Sodium Chloride 10 ml 02/29/20 17:00 03/03/20 00:51 Normal Saline Flush 0.9% IVP Not Given 0100,0900,1700 BRENDON Sodium Chloride 10 ml 02/29/20 13:22 03/02/20 14:26 Normal Saline Flush 0.9% IVP 10 ml PRN PRN Administration NEEDED PER PROVIDER ORDERS Impression/Plan - Problem List Problem List: S/P ORIF intertrochanteric fracture left hip Continue present treatment; discharge when appropriate facitility is available Continue ASA for 6 weeks for DVT prophylaxis Follow up in ortho [facility] in 1-2 weeks
[2020-03-03 08:01] LABS: BILIRUBIN,URINE NEGATIVE (NEGATIVE); GLUCOSE, URINE (UA) NEGATIVE (NEGATIVE); KETONES,URINE (UA) NEGATIVE (NEGATIVE); LEUKOCYTE ESTERASE, URINE NEGATIVE (NEGATIVE); NITRITE,URINE NEGATIVE (NEGATIVE); OCCULT BLOOD,URINE MODERATE (NEGATIVE); PROTEIN,URINE NEGATIVE (NEGATIVE); UROBILINOGEN,URINE 0.2 (NORMAL) E.U./dL (NORMAL)
[2020-03-03 08:04] LABS: CLARITY,URINE CLEAR (CLEAR)
[2020-03-03 08:19] LABS: BACTERIA,URINE Rare /HPF (None Seen); SQUAMOUS EPITHELIAL CELL,UR FEW Squamous (<= Few)
[2020-03-03 08:20] LABS: CRYSTALS,URINE 0-2 Calcium Oxalate /LPF
[2020-03-03] MEDS: GI COCKTAIL 120 ML BOTTLE PO PRN ×2 (09:06→13:34)
[2020-03-03] MEDS: MULTIVITAMIN W/MINERALS TABLET PO SCH (09:07)
[2020-03-03] MEDS: MAGNESIUM OXIDE 400 MG TABLET PO SCH (09:07)
[2020-03-03] MEDS: CALCIUM CARBONATE CHEW 500 MG TABLET PO SCH ×2 (09:08→20:26)
[2020-03-03] MEDS: METOPROLOL TARTRATE 25 MG TABLET PO SCH ×2 (09:08→20:27)
[2020-03-03] MEDS: ASPIRIN 325 MG TABLET PO SCH ×2 (09:10→19:01)
[2020-03-03] MEDS: LORazepam 0.5 MG TABLET PO PRN ×2 (09:10→14:43)
[2020-03-03] MEDS: FERROUS GLUCONATE 324 MG TABLET PO SCH (09:10)
[2020-03-03] MEDS: METHADONE 5 MG TABLET PO SCH ×2 (09:10→20:26)
[2020-03-03] MEDS: NICOTINE 14 MG PATCH TOP SCH (09:10)
[2020-03-03] MEDS: FAMOTIDINE 20 MG TABLET PO SCH (09:10)
[2020-03-03] MEDS: CHOLECALCIFEROL 25 MCG TABLET PO SCH (09:10)
[2020-03-03] MEDS: SODIUM CHLORIDE FLUSH 0.9% 10 ML SYRINGE IVP PRN ×2 (09:11→12:22)
[2020-03-03] MEDS: INSULIN ASPART 300 UNIT/3 ML PEN SUBQ SCH ×4 (09:11→20:26)
[2020-03-03] MEDS: allopurinoL 100 MG TABLET PO SCH (09:32)
[2020-03-03] MEDS: oxyCODONE 5 MG TABLET PO PRN ×3 (10:38→21:22)
--- NOTE | 2020-03-03 11:41 | PROVIDER PROGRESS NOTE ---
Assessment/Plan - Problem List (1) Femur fracture, left Assessment/Plan: 94, patient is stable, social work look for placement for patient, continue physical therapist occupational therapist, continue pain control 03/02 This is date 2 post status of operation, Continue PT/OT, continue pain control, plan discharge on tomorrow for skilled nurse facility if possible. 03/01 This is day 1 status post of left hip repair, Patient is doing well. We will continue physical and occupational therapy treatment and evaluation for patient. Continue pain control, continue aspirin 325 twice daily for DVT prophylaxis. Consult with social work for planning discharge Patient is a status post surgery day 1 from left hip repair. We will continue consult with orthopedic, Pain control, DVT prophylaxis per surgeon, will continue physical therapist and occupational therapist. Social work is consulted For discharge placement. Fall precaution (2)anemia 94,Improved, patient's hemoglobin is 8.8 on today after had 1 unit blood transfusion.Continue lab monitor Patient hemoglobin is 7.0. Patient is status post of surgery, is likely from acute blood loss from surgery. We will transfuse her 1 unit of blood, continue H&H to monitor patient (3) Fall during current hospitalization Pt fell in bathroom on yesterday, on wet floor, per RN Mejia Cruz. Patient had left hip repair in the morning. Continue neuro checks. Fall precaution (4) FTT (failure to thrive) in adult Assessment/Plan: This patient was homeless. She had multiple admissions with protein malnutrition, poor decision-making, alcohol abuse, opiate excess abuse, cachectic, failure to thrive, cirrhosis. She was accepted by [facility] before. A new hospice referral was sent here. Social work was consulted for discharge placement (5) At risk for unsafe behavior Assessment/Plan: Including patient had a fall in the hospital. After surgery patient, pt will have PT/OT in the hospital, social scientist was consulted for discharge planning (6) Severe protein-calorie malnutrition Assessment/Plan: Patient is a homeless status improved, she had a good appetite. (7) Alcoholic cirrhosis of liver Assessment/Plan: She has minimal ascites, lab test reveal normal INR and normal bili, AST, ALT. There has been no recent alcohol use even before this hospitalization we think (8) Opiate use Assessment/Plan: The patient had history of ingested excessive amounts of her newly prescribed opiates and meds that were ordered in her new Hospice status. She came in obtunded, was sleeping it off in the ER. (9) Chronic pain Assessment/Plan: Her pain was mostly abdominal pain, this precipitated many ER visits. She has known gallstones but does not have cholecystitis, has had many abd/pelvic imaging studies. (10) Diabetes mellitus with hyperglycemia 94, Lantus changed to 3 units in the morning, continue sliding scale 92,We will keep the same sliding scale, continue glucose monitor, continue hypoglycemia protocol Because the patient has multiple times of Hypoglycemia so patient insulin is removed from his home medication list. Because of her very good appetite here, her glucose levels were running 300 400, since she had been off her Lantus and regular insulin and metformin before this hospitalization. Those medications had been weaned down over the previous several months because of many episodes of hypoglycemia. Currently will use just low doses of Lantus and a sliding scale of insulin for coverage. She was put on a regular diet for "comfort" when Hosp[facility] took over, and this is been continued while here and not a diabetic diet (11) Homeless Assessment/Plan: As per hx - Current Meds Current Meds: Current Medications Generic Name Dose Route Start Last Admin Trade Name Freq PRN Reason Stop Dose Admin Acetaminophen 650 - 975 mg 02/29/20 13:22 03/01/20 13:01 Tylenol PO 650 mg Q4HR PRN Administration PAIN Allopurinol 100 mg 02/25/20 09:00 03/03/20 09:32 Zyloprim PO 100 mg DAILY [facility] Administration Aspirin 325 mg 02/29/20 17:00 03/03/20 09:10 Margot PO 325 mg BIDWM [facility] Administration Calcium Carbonate/Glycine 500 mg 03/02/20 21:00 03/03/20 09:08 Tums PO 500 mg BID [facility] Administration Cholecalciferol 50 mcg 03/03/20 09:00 03/03/20 09:10 Vitamin D3 PO 50 mcg DAILY [facility] Administration Famotidine 20 mg 02/25/20 09:10 03/03/20 09:10 Pepcid PO 20 mg DAILY [facility] Administration Ferrous Gluconate 324 mg 02/26/20 12:00 03/03/20 09:10 Fergon PO 324 mg DAILYWM [facility] Administration Gabapentin 600 mg 02/24/20 22:00 03/03/20 05:51 Neurontin PO 600 mg TID [facility] Administration Hydromorphone HCl 2 mg 02/28/20 11:50 03/03/20 09:11 Dilaudid (Vial) IVP 2 mg Q2H PRN Administration PAIN Sodium Chloride 250 mls @ 0 mls/hr 02/28/20 18:02 03/03/20 04:53 Normal Saline 0.9% IV 25 mls/hr Q24H PRN Administration TKO RATE TKO Insulin Aspart 1 - 9 unit 03/02/20 17:00 03/03/20 09:11 Novolog SUBQ Not Given 0800,1200,1700,2100 [facility] Protocol Lorazepam 0.5 mg 02/25/20 17:09 03/03/20 09:10 Ativan PO 0.5 mg Q3H PRN Administration Anxiety Magnesium Oxide 800 mg 03/01/20 08:00 03/03/20 09:07 Mag Ox PO 800 mg DAILYWM [facility] Administration Methadone HCl 5 mg 02/24/20 21:00 03/03/20 09:10 PO 5 mg BID [facility] Administration Metoprolol Tartrate 25 mg 03/02/20 23:00 03/03/20 09:08 Lopressor PO 25 mg BID [facility] Administration Mineral Oil 1 applic 02/24/20 17:34 02/28/20 04:55 Cavilon TOP 1 applic PRN PRN Administration Skin Care Multi-Ingredient Mouthwash/Gargle 30 ml 03/02/20 16:17 03/03/20 09:06 PO 30 ml Q4H PRN Administration Abdominal Pain Multivitamins/Minerals 1 tab 02/25/20 09:00 03/03/20 09:07 Theragran M PO 1 tab DAILYWM [facility] Administration Nicotine 1 patch 02/24/20 17:00 03/03/20 09:10 Nicoderm TOP 1 patch DAILY [facility] Administration Ondansetron HCl 4 mg 02/25/20 00:57 03/02/20 00:21 Zofran Odt TL 4 mg Q4HR PRN Administration Nausea / Vomiting Oxycodone HCl 5 mg 02/29/20 13:22 03/03/20 10:38 Roxicodone PO 5 mg Q4HR PRN Administration PAIN Prochlorperazine Edisylate 10 mg 02/29/20 13:22 03/02/20 02:36 Compazine Inj IVP 10 mg Q6HR PRN Administration Nausea / Vomiting Sodium Chloride 10 ml 02/29/20 17:00 03/03/20 09:10 Normal Saline Flush 0.9% IVP 10 ml 0100,0900,1700 [facility] Administration Sodium Chloride 10 ml 02/29/20 13:22 03/03/20 09:11 Normal Saline Flush 0.9% IVP 10 ml PRN PRN Administration NEEDED PER PROVIDER ORDERS - Lab Result Fish Bone Diagrams: 03/03/20 04:40 03/03/20 04:40 - Additional Planning My Orders: My Active Orders 03/02/20 16:17 Gi Cocktail 30 ml PO Q4H PRN 03/02/20 17:00 Insulin Aspart [NovoLOG] 1 - 9 unit SUBQ 0800,1200,1700,2100 03/02/20 21:00 Calcium Carbonate [Tums] 500 mg PO BID 03/03/20 07:32 Incentive Spirometry - RT [RC] TID 03/03/20 09:00 Cholecalciferol [Vitamin D3] 50 mcg PO DAILY 03/04/20 05:00 BMP - BASIC METABOLIC PANEL [CHEM] DAILYLAB CBC - COMP BLD CT W/AUTO DIFF [HEME] DAILYLAB 03/04/20 08:00 Insulin Glargine [Lantus Solostar] 3 unit SUBQ QDBREAKFAST Subjective - Subjective Patient Reports: Feeling Better Objective Vital Signs: Vital Signs - 24 hr 03/02/20 03/02/20 03/02/20 12:22 12:51 15:42 Temperature 36.9 C 36.9 C 36.8 C Heart Rate 94 Heart Rate [ 94 94 Brachial] Respiratory 16 16 16 Rate Blood Pressure 162/84 H Blood Pressure 162/82 H 180/97 H [Right Brachial artery] O2 Saturation 100 96 03/02/20 03/02/20 03/02/20 19:15 22:07 22:36 Temperature 37.1 C Heart Rate Heart Rate [ 90 Brachial] Respiratory 16 Rate Blood Pressure 180/103 H Blood Pressure 180/93 H 180/100 H [Right Brachial artery] O2 Saturation 100 03/02/20 03/02/20 03/02/20 22:43 22:48 22:53 Temperature 37.4 C Heart Rate Heart Rate [ 86 86 84 Brachial] Respiratory 16 16 Rate Blood Pressure Blood Pressure 165/95 H 163/92 H 167/92 H [Right Brachial artery] O2 Saturation 96 03/02/20 03/02/20 03/02/20 22:58 23:08 23:45 Temperature 36.6 C Heart Rate Heart Rate [ 84 96 79 Brachial] Respiratory 16 Rate Blood Pressure Blood Pressure 166/89 H 162/97 H 144/86 H [Right Brachial artery] O2 Saturation 99 03/03/20 03/03/20 03/03/20 03:04 09:08 09:19 Temperature 36.9 C 36.9 C Heart Rate Heart Rate [ 82 84 Brachial] Respiratory 16 18 Rate Blood Pressure 167/92 H Blood Pressure 142/82 H 167/92 H [Right Brachial artery] O2 Saturation 96 98 Oxygen O2 Source Room air I&O (Last 24 Hrs): Intake and Output Totals x24h 03/01/20 03/02/20 03/03/20 23:59 23:59 23:59 Intake Total 3867.785 5076.917 1200 Output Total 600 1170 650 Balance 1360.000 757.917 550 General: Alert, No acute distress HEENT: Atraumatic Neck: Supple Lymphatic: no adenopathy Neuro: Alert, Non Focal Cardiovascular: Regular rate, Normal S1, Normal S2 Respiratory: Chest non-tender, No respiratory distress Abdomen: Normal bowel sounds, Soft - Results Results: Laboratory Results WBC 12.7 x10^3/uL (4.8-10.8) H 03/03/20 04:40 RBC 2.85 10^6/uL (4.20-5.40) L 03/03/20 04:40 Hgb 8.8 g/dL (12.0-16.0) L 03/03/20 04:40 Hct 26.9 % (37.0-47.0) L 03/03/20 04:40 MCV 94.4 fL (81.0-99.0) 03/03/20 04:40 MCH 30.9 pg (27.0-31.0) 03/03/20 04:40 MCHC 32.7 g/dL (32.0-36.0) 03/03/20 04:40 RDW 16.4 % (12.0-15.0) H 03/03/20 04:40 Plt Count 395 10^3/uL (130-450) 03/03/20 04:40 MPV 10.8 fL (7.9-10.8) 03/03/20 04:40 Neut # (Auto) 9.1 10^3/uL (1.5-6.6) H 03/03/20 04:40 Lymph # (Auto) 2.5 10^3/uL (1.5-3.5) 03/03/20 04:40 Carter # (Auto) 1.1 10^3/uL (0.0-1.0) H 03/03/20 04:40 Eos # (Auto) 0.0 10^3/uL (0.0-0.7) 03/03/20 04:40 Baso # (Auto) 0.0 10^3/uL (0.0-0.1) 03/03/20 04:40 Absolute Nucleated RBC 0.00 x10^3/uL 03/03/20 04:40 Nucleated RBC % 0.0 /100WBC 03/03/20 04:40 PT 11.9 secs (9.9-12.6) 02/24/20 16:03 INR 1.0 (0.8-1.2) 02/24/20 16:03 Sodium 134 mmol/L (135-145) L 03/03/20 04:40 Potassium 4.0 mmol/L (3.5-5.0) 03/03/20 04:40 Chloride 104 mmol/L (101-111) 03/03/20 04:40 Carbon Dioxide 26 mmol/L (21-32) 03/03/20 04:40 Anion Gap 4.0 (6-13) L 03/03/20 04:40 BUN 15 mg/dL (6-20) 03/03/20 04:40 Creatinine 0.7 mg/dL (0.4-1.0) 03/03/20 04:40 Estimated GFR (MDRD) 88 (>89) L 03/03/20 04:40 Glucose 71 mg/dL (70-100) 03/03/20 04:40 POC Whole Bld Glucose 216 mg/dL (70 - 100) H 03/03/20 11:34 Calcium 7.5 mg/dL (8.5-10.3) L 03/03/20 04:40 Phosphorus 3.0 mg/dL (2.5-4.6) 02/29/20 08:07 Magnesium 1.7 mg/dL (1.7-2.8) 03/03/20 04:40 Iron 78 ug/dL (28-170) 02/26/20 04:45 TIBC 132 ug/dL (250-450) L 02/26/20 04:45 % Saturation 59 % (20-50) H 02/26/20 04:45 Transferrin 94 mg/dL (192-382) L 02/26/20 04:45 Total Bilirubin 0.7 mg/dL (0.2-1.0) 02/24/20 16:03 AST 32 IU/L (10-42) 02/24/20 16:03 ALT 36 IU/L (10-60) 02/24/20 16:03 Alkaline Phosphatase 627 IU/L (42-121) H 02/24/20 16:03 Total Protein 6.3 g/dL (6.7-8.2) L 02/24/20 16:03 Albumin 1.8 g/dL (3.2-5.5) L 02/24/20 16:03 Globulin 4.5 g/dL (2.1-4.2) H 02/24/20 16:03 Albumin/Globulin Ratio 0.4 (1.0-2.2) L 02/24/20 16:03 Vitamin B12 3526 pg/mL (180-914) H 02/26/20 04:45 Folate 9.14 ng/mL (5.90 - >24.8) 02/26/20 04:45 Urine Color YELLOW 03/03/20 07:52 Urine Clarity CLEAR (CLEAR) 03/03/20 07:52 Urine pH 6.0 PH (5.0-7.5) 03/03/20 07:52 Ur Specific Felda 1.010 (1.002-1.030) 03/03/20 07:52 Urine Protein NEGATIVE mg/dL (NEGATIVE) 03/03/20 07:52 Urine Glucose (UA) NEGATIVE mg/dL (NEGATIVE) 03/03/20 07:52 Urine Ketones NEGATIVE mg/dL (NEGATIVE) 03/03/20 07:52 Urine Occult Blood MODERATE (NEGATIVE) H 03/03/20 07:52 Urine Nitrite NEGATIVE (NEGATIVE) 03/03/20 07:52 Urine Bilirubin NEGATIVE (NEGATIVE) 03/03/20 07:52 Urine Urobilinogen 0.2 (NORMAL) E.U./dL (NORMAL) 03/03/20 07:52 Ur Leukocyte Esterase NEGATIVE (NEGATIVE) 03/03/20 07:52 Urine RBC 6-10 /HPF (0-5) H 03/03/20 07:52 Urine WBC 0-3 /HPF (0-5) 03/03/20 07:52 Ur Squamous Epith Cells FEW Squamous (<= Few) 03/03/20 07:52 Urine Crystals 0-2 Calcium Oxalate /LPF 03/03/20 07:52 Urine Bacteria Rare /HPF (None Seen) 03/03/20 07:52 Urine Culture Comments NOT INDICATED 03/03/20 07:52 Stl Occult Blood (IFOB) NEGATIVE (NEGATIVE) 03/01/20 06:55 Coronavirus (PCR) NEGATIVE 02/21/20 14:40 Ref Lab Test Result REPORT 02/27/20 12:35 Blood Type O POSITIVE 02/29/20 09:20 Antibody Screen NEGATIVE 02/29/20 09:20 Crossmatch IS Only See Detail 02/29/20 09:20 - Procedures Procedures: Procedures INSERTION OF INFUSION DEV INTO SUP VENA CAVA, PERC APPROACH (08/12/18) ABX Reporting Has patient been on IV antibiotics over the past 48 hours?: No Current Medications - Current Medications Current Medications: Active Medications Acetaminophen (Tylenol) 650 - 975 mg PO Q4HR PRN PRN Reason: PAIN Last Admin: 03/01/20 13:01 Dose: 650 mg Documented by: Allopurinol (Zyloprim) 100 mg PO DAILY [facility] Last Admin: 03/03/20 09:32 Dose: 100 mg Documented by: Aspirin (Margot) 325 mg PO BIDWM [facility] Last Admin: 03/03/20 09:10 Dose: 325 mg Documented by: Calcium Carbonate/Glycine (Tums) 500 mg PO BID [facility] Last Admin: 03/03/20 09:08 Dose: 500 mg Documented by: Cholecalciferol (Vitamin D3) 50 mcg PO DAILY [facility] Last Admin: 03/03/20 09:10 Dose: 50 mcg Documented by: Famotidine (Pepcid) 20 mg PO DAILY [facility] Last Admin: 03/03/20 09:10 Dose: 20 mg Documented by: Ferrous Gluconate (Fergon) 324 mg PO DAILYWM [facility] Last Admin: 03/03/20 09:10 Dose: 324 mg Documented by: Gabapentin (Neurontin) 600 mg PO TID [facility] Last Admin: 03/03/20 05:51 Dose: 600 mg Documented by: Hydromorphone HCl (Dilaudid (Vial)) 2 mg IVP Q2H PRN PRN Reason: PAIN Last Admin: 03/03/20 09:11 Dose: 2 mg Documented by: Sodium Chloride (Normal Saline 0.9%) 250 mls @ 0 mls/hr IV Q24H PRN PRN Reason: TKO RATE Last Admin: 03/03/20 04:53 Dose: 25 mls/hr Documented by: Insulin Aspart (Novolog) 1 - 9 unit SUBQ 0800,1200,1700,2100 [facility]; Protocol Last Admin: 03/03/20 09:11 Dose: Not Given Documented by: Insulin Glargine (Lantus Solostar) 3 unit SUBQ QDBREAKFAST [facility] Lorazepam (Ativan) 0.5 mg PO Q3H PRN PRN Reason: Anxiety Last Admin: 03/03/20 09:10 Dose: 0.5 mg Documented by: Magnesium Oxide (Mag Ox) 800 mg PO DAILYWM [facility] Last Admin: 03/03/20 09:07 Dose: 800 mg Documented by: Methadone HCl () 5 mg PO BID [facility] Last Admin: 03/03/20 09:10 Dose: 5 mg Documented by: Metoprolol Tartrate (Lopressor) 25 mg PO BID [facility] Last Admin: 03/03/20 09:08 Dose: 25 mg Documented by: Mineral Oil (Cavilon) 1 applic TOP PRN PRN PRN Reason: Skin Care Last Admin: 02/28/20 04:55 Dose: 1 applic Documented by: Multi-Ingredient Mouthwash/Gargle () 30 ml PO Q4H PRN PRN Reason: Abdominal Pain Last Admin: 03/03/20 09:06 Dose: 30 ml Documented by: Multivitamins/Minerals (Theragran M) 1 tab PO DAILYWM [facility] Last Admin: 03/03/20 09:07 Dose: 1 tab Documented by: Nicotine (Nicoderm) 1 patch TOP DAILY [facility] Last Admin: 03/03/20 09:10 Dose: 1 patch Documented by: Ondansetron HCl (Zofran Odt) 4 mg TL Q4HR PRN PRN Reason: Nausea / Vomiting Last Admin: 03/02/20 00:21 Dose: 4 mg Documented by: Oxycodone HCl (Roxicodone) 5 mg PO Q4HR PRN PRN Reason: PAIN Last Admin: 03/03/20 10:38 Dose: 5 mg Documented by: Prochlorperazine Edisylate (Compazine Inj) 10 mg IVP Q6HR PRN PRN Reason: Nausea / Vomiting Last Admin: 03/02/20 02:36 Dose: 10 mg Documented by: Senna (Senokot) 8.6 mg PO BID PRN PRN Reason: Constipation Sodium Chloride (Normal Saline Flush 0.9%) 10 ml IVP 0100,0900,1700 [facility] Last Admin: 03/03/20 09:10 Dose: 10 ml Documented by: Sodium Chloride (Normal Saline Flush 0.9%) 10 ml IVP PRN PRN PRN Reason: NEEDED PER PROVIDER ORDERS Last Admin: 03/03/20 09:11 Dose: 10 ml Documented by: Omeprazole 40 mg PO DAILY 08/12/18 Gabapentin 600 mg PO TID 10/28/19 allopurinoL [Allopurinol] 100 mg PO DAILY 10/28/19 Insulin Aspart [NovoLOG] 4 unit SQ TIDWM 02/09/20 Haloperidol Oral Soln [Haldol Oral Soln] 0.5 - 20 mg PO Q2H PRN 02/24/20 Insulin Glargine [Lantus Solostar] 5 unit SUBQ BID 02/24/20 LORazepam [Ativan] 0.5 - 2 mg PO Q2H PRN 02/24/20 Methadone 5 mg PO BID 02/24/20 Morphine Sulfate [Morphine Sulf Oral (Roxanol)] 5 mg PO Q1H PRN 02/24/20 Ondansetron [Ondansetron Odt] 4 mg PO Q8H PRN 02/24/20 Sennosides [Senna] 8.6 mg PO BID PRN 02/24/20 oxyCODONE [Roxicodone] 5 mg PO Q4H PRN 02/24/20
[2020-03-04] MEDS: HYDROmorphone 2 MG/ML VIAL IVP PRN ×2 (00:08→05:34)
[2020-03-04] MEDS: GI COCKTAIL 120 ML BOTTLE PO PRN ×5 (00:08→21:00)
[2020-03-04] MEDS: ACETAMINOPHEN 325 MG TABLET PO PRN (02:24)
[2020-03-04] MEDS: LORazepam 0.5 MG TABLET PO PRN ×3 (02:24→21:21)
[2020-03-04] MEDS: oxyCODONE 5 MG TABLET PO PRN ×5 (02:25→21:02)
[2020-03-04] MEDS: SODIUM CHLORIDE 0.9% 250 ML IV PRN (04:45)
[2020-03-04] MEDS: GABAPENTIN 300 MG CAPSULE PO SCH ×3 (05:22→21:05)
[2020-03-04 05:32] LABS: BASOPHILS # (AUTO) 0.1 10^3/uL (0.0-0.1); BASOPHILS % (AUTO) 0.5 %; EOSINOPHILS # (AUTO) 0.1 10^3/uL (0.0-0.7); EOSINOPHILS % (AUTO) 0.6 %; LYMPHOCYTES # (AUTO) 1.8 10^3/uL (1.5-3.5); LYMPHOCYTES % (AUTO) 16.5 %; MEAN CORPUSCULAR HGB CONC 32.7 g/dL (32.0-36.0); MEAN CORPUSCULAR VOLUME 94.8 fL (81.0-99.0); MEAN PLATELET VOLUME 10.2 fL (7.9-10.8); MONOCYTES # (AUTO) 0.7 10^3/uL (0.0-1.0); MONOCYTES % (AUTO) 5.9 %; NEUTROPHILS # (AUTO) 8.5 10^3/uL (1.5-6.6); NEUTROPHILS % (AUTO) 76.1 %; PLT - PLATELET COUNT 449 10^3/uL (130-450); RED CELL DISTRIBUTION WIDTH 15.9 % (12.0-15.0); WHITE BLOOD COUNT 11.2 x10^3/uL (4.8-10.8)
[2020-03-04 05:41] LABS: CALCIUM 7.3 mg/dL (8.5-10.3); CREATININE 0.8 mg/dL (0.4-1.0)
--- NOTE | 2020-03-04 07:28 | PROVIDER PROGRESS NOTE ---
Subjective - Prog Note Date Prog Note Date: 03/04/20 - Subjective Subjective: She is complaining of abdominal pain which she states is chronic for her but it is slightly worse today. Reports mild nausea but no vomiting. She is also complaining of left leg pain just below the site of the incision. Current Medications - Current Medications Current Medications: Active Medications Acetaminophen (Tylenol) 650 - 975 mg PO Q4HR PRN PRN Reason: PAIN Last Admin: 03/04/20 02:24 Dose: 650 mg Documented by: Allopurinol (Zyloprim) 100 mg PO DAILY ON LICENSE OF [facility] Last Admin: 03/03/20 09:32 Dose: 100 mg Documented by: Aspirin (Margot) 325 mg PO BIDWM ON LICENSE OF [facility] Last Admin: 03/04/20 08:07 Dose: 325 mg Documented by: Calcium Carbonate/Glycine (Tums) 500 mg PO BID ON LICENSE OF [facility] Last Admin: 03/03/20 20:26 Dose: 500 mg Documented by: Cholecalciferol (Vitamin D3) 50 mcg PO DAILY ON LICENSE OF [facility] Last Admin: 03/03/20 09:10 Dose: 50 mcg Documented by: Famotidine (Pepcid) 20 mg PO DAILY ON LICENSE OF [facility] Last Admin: 03/03/20 09:10 Dose: 20 mg Documented by: Ferrous Gluconate (Fergon) 324 mg PO DAILYWM ON LICENSE OF [facility] Last Admin: 03/04/20 08:07 Dose: 324 mg Documented by: Gabapentin (Neurontin) 600 mg PO TID ON LICENSE OF [facility] Last Admin: 03/04/20 05:22 Dose: 600 mg Documented by: Hydromorphone HCl (Dilaudid (Vial)) 1 mg IVP Q2H PRN PRN Reason: PAIN Last Admin: 03/04/20 05:34 Dose: 1 mg Documented by: Sodium Chloride (Normal Saline 0.9%) 250 mls @ 0 mls/hr IV Q24H PRN PRN Reason: TKO RATE Last Admin: 03/04/20 04:45 Dose: 25 mls/hr Documented by: Insulin Aspart (Novolog) 1 - 9 unit SUBQ 0800,1200,1700,2100 ON LICENSE OF [facility]; Protocol Last Admin: 03/04/20 08:07 Dose: 5 unit Documented by: Insulin Glargine (Lantus Solostar) 5 unit SUBQ QDBREAKFAST ON LICENSE OF [facility] Last Admin: 03/04/20 08:08 Dose: 5 unit Documented by: Lorazepam (Ativan) 0.5 mg PO Q3H PRN PRN Reason: Anxiety Last Admin: 03/04/20 02:24 Dose: 0.5 mg Documented by: Magnesium Oxide (Mag Ox) 800 mg PO DAILYWM ON LICENSE OF [facility] Last Admin: 03/04/20 08:09 Dose: 800 mg Documented by: Methadone HCl () 5 mg PO BID ON LICENSE OF [facility] Last Admin: 03/03/20 20:26 Dose: 5 mg Documented by: Metoprolol Tartrate (Lopressor) 25 mg PO BID ON LICENSE OF [facility] Last Admin: 03/03/20 20:27 Dose: 25 mg Documented by: Mineral Oil (Cavilon) 1 applic TOP PRN PRN PRN Reason: Skin Care Last Admin: 02/28/20 04:55 Dose: 1 applic Documented by: Multi-Ingredient Mouthwash/Gargle () 30 ml PO Q4H PRN PRN Reason: Abdominal Pain Last Admin: 03/04/20 05:22 Dose: 30 ml Documented by: Multivitamins/Minerals (Theragran M) 1 tab PO DAILYWM ON LICENSE OF [facility] Last Admin: 03/04/20 08:09 Dose: 1 tab Documented by: Nicotine (Nicoderm) 1 patch TOP DAILY ON LICENSE OF [facility] Last Admin: 03/03/20 09:10 Dose: 1 patch Documented by: Ondansetron HCl (Zofran Odt) 4 mg TL Q4HR PRN PRN Reason: Nausea / Vomiting Last Admin: 03/02/20 00:21 Dose: 4 mg Documented by: Oxycodone HCl (Roxicodone) 5 mg PO Q4HR PRN PRN Reason: PAIN Last Admin: 03/04/20 08:07 Dose: 5 mg Documented by: Prochlorperazine Edisylate (Compazine Inj) 10 mg IVP Q6HR PRN PRN Reason: Nausea / Vomiting Last Admin: 03/02/20 02:36 Dose: 10 mg Documented by: Senna (Senokot) 8.6 mg PO BID PRN PRN Reason: Constipation Sodium Chloride (Normal Saline Flush 0.9%) 10 ml IVP 0100,0900,1700 ON LICENSE OF [facility] Last Admin: 03/03/20 23:56 Dose: Not Given Documented by: Sodium Chloride (Normal Saline Flush 0.9%) 10 ml IVP PRN PRN PRN Reason: NEEDED PER PROVIDER ORDERS Last Admin: 03/03/20 12:22 Dose: 10 ml Documented by: Omeprazole 40 mg PO DAILY 08/12/18 Gabapentin 600 mg PO TID 10/28/19 allopurinoL [Allopurinol] 100 mg PO DAILY 10/28/19 Insulin Aspart [NovoLOG] 4 unit SQ TIDWM 02/09/20 Haloperidol Oral Soln [Haldol Oral Soln] 0.5 - 20 mg PO Q2H PRN 02/24/20 Insulin Glargine [Lantus Solostar] 5 unit SUBQ BID 02/24/20 LORazepam [Ativan] 0.5 - 2 mg PO Q2H PRN 02/24/20 Methadone 5 mg PO BID 02/24/20 Morphine Sulfate [Morphine Sulf Oral (Roxanol)] 5 mg PO Q1H PRN 02/24/20 Ondansetron [Ondansetron Odt] 4 mg PO Q8H PRN 02/24/20 Sennosides [Senna] 8.6 mg PO BID PRN 02/24/20 oxyCODONE [Roxicodone] 5 mg PO Q4H PRN 02/24/20 Objective - Vital Signs/Intake & Output Reviewed Vital Signs: Yes Vital Signs: Vital Signs x48h Temp Pulse Resp BP Pulse Ox 03/04/20 05:00 36.8 C 77 18 164/93 H 95 Intake & Output: Intake & Output 03/01/20 03/02/20 03/03/20 03/04/20 23:59 23:59 23:59 23:59 Intake Total 3901.299 4435.917 2240 Output Total 600 1170 1425 300 Balance 1360.000 757.917 815 -300 - Objective General Appearance: positive: Alert Eyes Bilateral: positive: Normal inspection, Conjunctivae nml ENT: positive: ENT inspection nml Neck: positive: Nml inspection Respiratory: positive: No respiratory distress, Wheezes. negative: Rales, Rhonchi Cardiovascular: positive: Regular rate & rhythm, No murmur. negative: Tach ycardia, Systolic murmur Abdomen: positive: Nml bowel sounds, Tenderness (Tenderness in the epigastric region). negative: Guarding, Rebound Skin: positive: Warm, Dry Extremities: positive: Other (Dressing is in place over the lateral aspect of the left hip. He does have edema in her bilateral thighs.) Neurologic/Psychiatric: positive: Oriented x3, Sensation nml. negative: Disoriented to person, Disoriented to place, Disoriented to time - Lab Results Fish Bones: 03/04/20 05:18 03/04/20 05:18 Other Labs: Lab Results x24hrs 03/04/20 03/04/20 03/03/20 Range/Units 05:18 05:18 20:02 WBC 11.2 H (4.8-10.8) x10^3/uL RBC 2.90 L (4.20-5.40) 10^6/uL Hgb 9.0 L (12.0-16.0) g/dL Hct 27.5 L (37.0-47.0) % MCV 94.8 (81.0-99.0) fL MCH 31.0 (27.0-31.0) pg MCHC 32.7 (32.0-36.0) g/dL RDW 15.9 H (12.0-15.0) % Plt Count 449 (130-450) 10^3/uL MPV 10.2 (7.9-10.8) fL Neut # (Auto) 8.5 H (1.5-6.6) 10^3/uL Lymph # (Auto) 1.8 (1.5-3.5) 10^3/uL [place] # (Auto) 0.7 (0.0-1.0) 10^3/uL Eos # (Auto) 0.1 (0.0-0.7) 10^3/uL Baso # (Auto) 0.1 (0.0-0.1) 10^3/uL Absolute Nucleated RBC 0.00 x10^3/uL Nucleated RBC % 0.0 /100WBC Sodium 131 L (135-145) mmol/L Potassium 3.8 (3.5-5.0) mmol/L Chloride 98 L (101-111) mmol/L Carbon Dioxide 26 (21-32) mmol/L Anion Gap 7.0 (6-13) BUN 15 (6-20) mg/dL Creatinine 0.8 (0.4-1.0) mg/dL Estimated GFR (MDRD) 75 L (>89) Glucose 312 H (70-100) mg/dL POC Whole Bld Glucose 131 H (70 - 100) mg/dL Calcium 7.3 L (8.5-10.3) mg/dL Urine Color Urine Clarity (CLEAR) Urine pH (5.0-7.5) PH Ur Specific [place] (1.002-1.030) Urine Protein (NEGATIVE) mg/dL Urine Glucose (UA) (NEGATIVE) mg/dL Urine Ketones (NEGATIVE) mg/dL Urine Occult Blood (NEGATIVE) Urine Nitrite (NEGATIVE) Urine Bilirubin (NEGATIVE) Urine Urobilinogen (NORMAL) E.U./dL Ur Leukocyte Esterase (NEGATIVE) Urine RBC (0-5) /HPF Urine WBC (0-5) /HPF Ur Squamous Epith Cells (<= Few) Urine Crystals /LPF Urine Bacteria (None Seen) /HPF Urine Culture Comments Ref Lab Test Result Crossmatch IS Only 03/03/20 03/03/20 03/03/20 Range/Units 16:22 11:34 08:00 WBC (4.8-10.8) x10^3/uL RBC (4.20-5.40) 10^6/uL Hgb (12.0-16.0) g/dL Hct (37.0-47.0) % MCV (81.0-99.0) fL MCH (27.0-31.0) pg MCHC (32.0-36.0) g/dL RDW (12.0-15.0) % Plt Count (130-450) 10^3/uL MPV (7.9-10.8) fL Neut # (Auto) (1.5-6.6) 10^3/uL Lymph # (Auto) (1.5-3.5) 10^3/uL [place] # (Auto) (0.0-1.0) 10^3/uL Eos # (Auto) (0.0-0.7) 10^3/uL Baso # (Auto) (0.0-0.1) 10^3/uL Absolute Nucleated RBC x10^3/uL Nucleated RBC % /100WBC Sodium (135-145) mmol/L Potassium (3.5-5.0) mmol/L Chloride (101-111) mmol/L Carbon Dioxide (21-32) mmol/L Anion Gap (6-13) BUN (6-20) mg/dL Creatinine (0.4-1.0) mg/dL Estimated GFR (MDRD) (>89) Glucose (70-100) mg/dL POC Whole Bld Glucose 195 H 216 H 67 L (70 - 100) mg/dL Calcium (8.5-10.3) mg/dL Urine Color Urine Clarity (CLEAR) Urine pH (5.0-7.5) PH Ur Specific [place] (1.002-1.030) Urine Protein (NEGATIVE) mg/dL Urine Glucose (UA) (NEGATIVE) mg/dL Urine Ketones (NEGATIVE) mg/dL Urine Occult Blood (NEGATIVE) Urine Nitrite (NEGATIVE) Urine Bilirubin (NEGATIVE) Urine Urobilinogen (NORMAL) E.U./dL Ur Leukocyte Esterase (NEGATIVE) Urine RBC (0-5) /HPF Urine WBC (0-5) /HPF Ur Squamous Epith Cells (<= Few) Urine Crystals /LPF Urine Bacteria (None Seen) /HPF Urine Culture Comments Ref Lab Test Result Crossmatch IS Only 03/03/20 03/03/20 02/29/20 Range/Units 07:52 07:36 09:20 WBC (4.8-10.8) x10^3/uL RBC (4.20-5.40) 10^6/uL Hgb (12.0-16.0) g/dL Hct (37.0-47.0) % MCV (81.0-99.0) fL MCH (27.0-31.0) pg MCHC (32.0-36.0) g/dL RDW (12.0-15.0) % Plt Count (130-450) 10^3/uL MPV (7.9-10.8) fL Neut # (Auto) (1.5-6.6) 10^3/uL Lymph # (Auto) (1.5-3.5) 10^3/uL [place] # (Auto) (0.0-1.0) 10^3/uL Eos # (Auto) (0.0-0.7) 10^3/uL Baso # (Auto) (0.0-0.1) 10^3/uL Absolute Nucleated RBC x10^3/uL Nucleated RBC % /100WBC Sodium (135-145) mmol/L Potassium (3.5-5.0) mmol/L Chloride (101-111) mmol/L Carbon Dioxide (21-32) mmol/L Anion Gap (6-13) BUN (6-20) mg/dL Creatinine (0.4-1.0) mg/dL Estimated GFR (MDRD) (>89) Glucose (70-100) mg/dL POC Whole Bld Glucose 62 L (70 - 100) mg/dL Calcium (8.5-10.3) mg/dL Urine Color YELLOW Urine Clarity CLEAR (CLEAR) Urine pH 6.0 (5.0-7.5) PH Ur Specific [place] 1.010 (1.002-1.030) Urine Protein NEGATIVE (NEGATIVE) mg/dL Urine Glucose (UA) NEGATIVE (NEGATIVE) mg/dL Urine Ketones NEGATIVE (NEGATIVE) mg/dL Urine Occult Blood MODERATE H (NEGATIVE) Urine Nitrite NEGATIVE (NEGATIVE) Urine Bilirubin NEGATIVE (NEGATIVE) Urine Urobilinogen 0.2 (NORMAL) (NORMAL) E.U./dL Ur Leukocyte Esterase NEGATIVE (NEGATIVE) Urine RBC 6-10 H (0-5) /HPF Urine WBC 0-3 (0-5) /HPF Ur Squamous Epith Cells FEW Squamous (<= Few) Urine Crystals 0-2 Calcium Oxalate /LPF Urine Bacteria Rare (None Seen) /HPF Urine Culture Comments NOT INDICATED Ref Lab Test Result Crossmatch IS Only See Detail 02/27/20 Range/Units 12:35 WBC (4.8-10.8) x10^3/uL RBC (4.20-5.40) 10^6/uL Hgb (12.0-16.0) g/dL Hct (37.0-47.0) % MCV (81.0-99.0) fL MCH (27.0-31.0) pg MCHC (32.0-36.0) g/dL RDW (12.0-15.0) % Plt Count (130-450) 10^3/uL MPV (7.9-10.8) fL Neut # (Auto) (1.5-6.6) 10^3/uL Lymph # (Auto) (1.5-3.5) 10^3/uL [place] # (Auto) (0.0-1.0) 10^3/uL Eos # (Auto) (0.0-0.7) 10^3/uL Baso # (Auto) (0.0-0.1) 10^3/uL Absolute Nucleated RBC x10^3/uL Nucleated RBC % /100WBC Sodium (135-145) mmol/L Potassium (3.5-5.0) mmol/L Chloride (101-111) mmol/L Carbon Dioxide (21-32) mmol/L Anion Gap (6-13) BUN (6-20) mg/dL Creatinine (0.4-1.0) mg/dL Estimated GFR (MDRD) (>89) Glucose (70-100) mg/dL POC Whole Bld Glucose (70 - 100) mg/dL Calcium (8.5-10.3) mg/dL Urine Color Urine Clarity (CLEAR) Urine pH (5.0-7.5) PH Ur Specific [place] (1.002-1.030) Urine Protein (NEGATIVE) mg/dL Urine Glucose (UA) (NEGATIVE) mg/dL Urine Ketones (NEGATIVE) mg/dL Urine Occult Blood (NEGATIVE) Urine Nitrite (NEGATIVE) Urine Bilirubin (NEGATIVE) Urine Urobilinogen (NORMAL) E.U./dL Ur Leukocyte Esterase (NEGATIVE) Urine RBC (0-5) /HPF Urine WBC (0-5) /HPF Ur Squamous Epith Cells (<= Few) Urine Crystals /LPF Urine Bacteria (None Seen) /HPF Urine Culture Comments Ref Lab Test Result REPORT Crossmatch IS Only ABX Reporting Has patient been on IV antibiotics over the past 48 hours?: No Assessment/Plan - Problem List (1) Closed left hip fracture Impression: She is now postop day 4 of ORIF of the left hip. We will continue aspirin 325 mg twice daily for 6 weeks for DVT prophylaxis. We will continue the methadone which she is on for chronic pain. Given she has a reason for acute pain, we will increase the oxycodone to 10 mg every 4 hours. Continue with PT and OT. She is medically stable for discharge to a skilled nurse facility but is pending placement. Fosamax will need to be started 2 weeks post operatively. (2) Postoperative anemia Impression: She has anemia of chronic disease at baseline but this was complicated by postoperative anemia hemoglobin decreased to 7 from 8.5. She was given 1 unit of packed red blood cells with appropriate response. Her hemoglobin has since remained stable without evidence of bleeding. (3) Type 2 diabetes mellitus treated with insulin Impression: She is a brittle diabetic and has been hospitalized in the past for hypoglycemia. Her blood glucose morning is greater than 300. We will increase her Lantus to 5 units daily from 3 units. We will continue with sliding scale and adjust as needed. Continue carb controlled diet. (4) Chronic pain Impression: She does have a history of chronic abdominal pain secondary to chronic pancreatitis. She has history of pancreatic stenting in the past. She reports is slightly exacerbated at this time. We will give her a one-time dose of Dilaudid IV. We will increase her oral oxycodone dose. We will continue with diet as tolerated. Zofran as needed for nausea. At this time, I do not believe she needs further imaging. (5) Fall during current hospitalization Impression: This is the cause of her left hip fracture we are continuing with fall precautions. PT/OT. Qualifiers: Encounter type: initial encounter Qualified Code(s): W19.XXXA - Unspecified fall, initial encounter; Y92.239 - Unspecified place in hospital as the place of occurrence of the external cause (6) Alcoholic cirrhosis of liver Impression: She has cirrhosis secondary to alcohol use. This is stable at this time. Qualifiers: Ascites presence: with ascites Qualified Code(s): K70.31 - Alcoholic cirrhosis of liver with ascites (7) Homeless Impression: She is homeless and this has made disposition difficult. She was previously on hospice with [facility].
[2020-03-04] MEDS ORDERED: INSULIN GLARGINE 300 UNIT/3 ML PEN SUBQ SCH (08:00)
[2020-03-04] MEDS: INSULIN ASPART 300 UNIT/3 ML PEN SUBQ SCH ×5 (08:07→21:04)
[2020-03-04] MEDS: ASPIRIN 325 MG TABLET PO SCH ×2 (08:07→16:45)
[2020-03-04] MEDS: FERROUS GLUCONATE 324 MG TABLET PO SCH (08:07)
[2020-03-04] MEDS: INSULIN GLARGINE 300 UNIT/3 ML PEN SUBQ SCH (08:08)
[2020-03-04] MEDS: MAGNESIUM OXIDE 400 MG TABLET PO SCH (08:09)
[2020-03-04] MEDS: MULTIVITAMIN W/MINERALS TABLET PO SCH (08:09)
[2020-03-04] MEDS: CHOLECALCIFEROL 25 MCG TABLET PO SCH (09:10)
[2020-03-04] MEDS: CALCIUM CARBONATE CHEW 500 MG TABLET PO SCH ×2 (09:10→21:05)
[2020-03-04] MEDS: allopurinoL 100 MG TABLET PO SCH (09:10)
[2020-03-04] MEDS: FAMOTIDINE 20 MG TABLET PO SCH (09:10)
[2020-03-04] MEDS: METHADONE 5 MG TABLET PO SCH ×2 (09:11→21:05)
[2020-03-04] MEDS: NICOTINE 14 MG PATCH TOP SCH (09:11)
[2020-03-04] MEDS: METOPROLOL TARTRATE 25 MG TABLET PO SCH ×2 (09:12→21:06)
[2020-03-04] MEDS: SODIUM CHLORIDE FLUSH 0.9% 10 ML SYRINGE IVP SCH ×3 (09:12→23:35)
[2020-03-04] MEDS ORDERED: oxyCODONE 5 MG TABLET PO SCH (11:00)
[2020-03-04] MEDS ORDERED: SODIUM CHLORIDE 0.9% 500 ML IV ONE (13:36)
[2020-03-04] MEDS ORDERED: ALBUTEROL NEB 2.5 MG/3 ML INH PRN (14:20)
[2020-03-04] MEDS ORDERED: HYDROmorphone 1 MG/ML CARPUJECT IVP SCH (14:30)
[2020-03-04] MEDS: DICYCLOMINE 10 MG CAPSULE PO SCH (21:21)
[2020-03-05] MEDS: oxyCODONE 5 MG TABLET PO PRN ×4 (04:35→19:26)
[2020-03-05] MEDS: LORazepam 0.5 MG TABLET PO PRN ×3 (04:40→13:01)
[2020-03-05 05:36] LABS: BASOPHILS # (AUTO) 0.1 10^3/uL (0.0-0.1); BASOPHILS % (AUTO) 0.7 %; EOSINOPHILS # (AUTO) 0.1 10^3/uL (0.0-0.7); EOSINOPHILS % (AUTO) 1.2 %; HGB - HEMOGLOBIN 8.7 g/dL (12.0-16.0); LYMPHOCYTES # (AUTO) 2.2 10^3/uL (1.5-3.5); MEAN CORPUSCULAR HEMOGLOBIN 31.4 pg (27.0-31.0); MEAN CORPUSCULAR HGB CONC 32.8 g/dL (32.0-36.0); MEAN CORPUSCULAR VOLUME 95.7 fL (81.0-99.0); MONOCYTES # (AUTO) 0.7 10^3/uL (0.0-1.0); MONOCYTES % (AUTO) 8.3 %; NEUTROPHILS % (AUTO) 62.4 %; PLT - PLATELET COUNT 468 10^3/uL (130-450); RED BLOOD COUNT 2.77 10^6/uL (4.20-5.40); RED CELL DISTRIBUTION WIDTH 15.7 % (12.0-15.0); WHITE BLOOD COUNT 8.1 x10^3/uL (4.8-10.8)
[2020-03-05] MEDS: GABAPENTIN 300 MG CAPSULE PO SCH ×3 (06:21→21:24)
--- NOTE | 2020-03-05 07:27 | PROVIDER PROGRESS NOTE ---
Subjective - Prog Note Date Prog Note Date: 03/05/20 - Subjective Subjective: She reports the pain in her left hip is not well controlled. It is about 8 out of 10. Reports little nausea with food. Continues to complain of her chronic abdominal pain. Current Medications - Current Medications Current Medications: Active Medications Acetaminophen (Tylenol) 650 - 975 mg PO Q4HR PRN PRN Reason: PAIN Last Admin: 03/04/20 02:24 Dose: 650 mg Documented by: Albuterol () 2.5 mg INH RTQ4H PRN PRN Reason: Wheezing Allopurinol (Zyloprim) 100 mg PO DAILY [facility] Last Admin: 03/05/20 08:41 Dose: 100 mg Documented by: Aspirin (Margot) 325 mg PO BIDWM [facility] Last Admin: 03/05/20 08:39 Dose: 325 mg Documented by: Calcium Carbonate/Glycine (Tums) 500 mg PO BID [facility] Last Admin: 03/05/20 08:42 Dose: 500 mg Documented by: Cholecalciferol (Vitamin D3) 50 mcg PO DAILY [facility] Last Admin: 03/05/20 08:41 Dose: 50 mcg Documented by: Dicyclomine HCl (Bentyl) 10 mg PO QID [facility] Last Admin: 03/05/20 08:37 Dose: 10 mg Documented by: Famotidine (Pepcid) 20 mg PO DAILY [facility] Last Admin: 03/05/20 08:39 Dose: 20 mg Documented by: Ferrous Gluconate (Fergon) 324 mg PO DAILYWM [facility] Last Admin: 03/05/20 08:39 Dose: 324 mg Documented by: Gabapentin (Neurontin) 600 mg PO TID [facility] Last Admin: 03/05/20 06:21 Dose: 600 mg Documented by: Insulin Aspart (Novolog) 2 - 10 unit SUBQ 0800,1200,1700,2100 [facility]; Protocol Last Admin: 03/05/20 08:51 Dose: Not Given Documented by: Insulin Glargine (Lantus Solostar) 5 unit SUBQ QDBREAKFAST [facility] Last Admin: 03/05/20 08:43 Dose: 5 unit Documented by: Lorazepam (Ativan) 0.5 mg PO Q3H PRN PRN Reason: Anxiety Last Admin: 03/05/20 08:40 Dose: 0.5 mg Documented by: Magnesium Oxide (Mag Ox) 800 mg PO DAILYWM [facility] Last Admin: 03/05/20 08:38 Dose: 800 mg Documented by: Methadone HCl () 5 mg PO BID [facility] Last Admin: 03/05/20 08:39 Dose: 5 mg Documented by: Metoprolol Tartrate (Lopressor) 25 mg PO BID [facility] Last Admin: 03/05/20 08:40 Dose: 25 mg Documented by: Mineral Oil (Cavilon) 1 applic TOP PRN PRN PRN Reason: Skin Care Last Admin: 02/28/20 04:55 Dose: 1 applic Documented by: Multi-Ingredient Mouthwash/Gargle () 30 ml PO Q4H PRN PRN Reason: Abdominal Pain Last Admin: 03/05/20 08:43 Dose: 30 ml Documented by: Multivitamins/Minerals (Theragran M) 1 tab PO DAILYWM [facility] Last Admin: 03/05/20 08:40 Dose: 1 tab Documented by: Nicotine (Nicoderm) 1 patch TOP DAILY [facility] Last Admin: 03/05/20 08:45 Dose: 1 patch Documented by: Ondansetron HCl (Zofran Odt) 4 mg TL Q4HR PRN PRN Reason: Nausea / Vomiting Last Admin: 03/02/20 00:21 Dose: 4 mg Documented by: Oxycodone HCl (Roxicodone) 10 mg PO Q4HR PRN PRN Reason: PAIN Last Admin: 03/05/20 08:42 Dose: 10 mg Documented by: Prochlorperazine Edisylate (Compazine Inj) 10 mg IVP Q6HR PRN PRN Reason: Nausea / Vomiting Last Admin: 03/02/20 02:36 Dose: 10 mg Documented by: Senna (Senokot) 8.6 mg PO BID PRN PRN Reason: Constipation Sodium Chloride (Normal Saline Flush 0.9%) 10 ml IVP 0100,0900,1700 [facility] Last Admin: 03/05/20 08:48 Dose: 10 ml Documented by: Sodium Chloride (Normal Saline Flush 0.9%) 10 ml IVP PRN PRN PRN Reason: NEEDED PER PROVIDER ORDERS Last Admin: 03/03/20 12:22 Dose: 10 ml Documented by: Omeprazole 40 mg PO DAILY 08/12/18 Gabapentin 600 mg PO TID 10/28/19 allopurinoL [Allopurinol] 100 mg PO DAILY 10/28/19 Insulin Aspart [NovoLOG] 4 unit SQ TIDWM 02/09/20 Haloperidol Oral Soln [Haldol Oral Soln] 0.5 - 20 mg PO Q2H PRN 02/24/20 Insulin Glargine [Lantus Solostar] 5 unit SUBQ BID 02/24/20 LORazepam [Ativan] 0.5 - 2 mg PO Q2H PRN 02/24/20 Methadone 5 mg PO BID 02/24/20 Morphine Sulfate [Morphine Sulf Oral (Roxanol)] 5 mg PO Q1H PRN 02/24/20 Ondansetron [Ondansetron Odt] 4 mg PO Q8H PRN 02/24/20 Sennosides [Senna] 8.6 mg PO BID PRN 02/24/20 oxyCODONE [Roxicodone] 5 mg PO Q4H PRN 02/24/20 Objective - Vital Signs/Intake & Output Reviewed Vital Signs: Yes Vital Signs: Vital Signs x48h Temp Pulse Resp BP Pulse Ox 03/05/20 04:38 36.7 C 72 20 152/79 H 99 03/04/20 23:47 36.8 C 75 16 143/94 H 97 Intake & Output: Intake & Output 03/02/20 03/03/20 03/04/20 03/05/20 23:59 23:59 23:59 23:59 Intake Total 6534.682 3875 1508 300 Output Total 1170 1425 1000 50 Balance 757.917 815 508 250 - Objective General Appearance: positive: No acute distress, Alert Eyes Bilateral: positive: Normal inspection ENT: positive: ENT inspection nml Neck: positive: Nml inspection Respiratory: positive: No respiratory distress Cardiovascular: negative: Tachycardia, Bradycardia Extremities: positive: Other (Resting in place over the lateral aspect of the left hip. No surrounding erythema. There is tenderness on palpation. There is also trace to +1 pitting edema in her bilateral thighs.) Neurologic/Psychiatric: negative: Disoriented to person, Disoriented to place - Lab Results Fish Bones: 03/05/20 05:25 03/04/20 05:18 Other Labs: Lab Results x24hrs 03/05/20 03/04/20 03/04/20 Range/Units 05:25 20:39 16:37 WBC 8.1 (4.8-10.8) x10^3/uL RBC 2.77 L (4.20-5.40) 10^6/uL Hgb 8.7 L (12.0-16.0) g/dL Hct 26.5 L (37.0-47.0) % MCV 95.7 (81.0-99.0) fL MCH 31.4 H (27.0-31.0) pg MCHC 32.8 (32.0-36.0) g/dL RDW 15.7 H (12.0-15.0) % Plt Count 468 H (130-450) 10^3/uL MPV 10.0 (7.9-10.8) fL Neut # (Auto) 5.0 (1.5-6.6) 10^3/uL Lymph # (Auto) 2.2 (1.5-3.5) 10^3/uL [place] # (Auto) 0.7 (0.0-1.0) 10^3/uL Eos # (Auto) 0.1 (0.0-0.7) 10^3/uL Baso # (Auto) 0.1 (0.0-0.1) 10^3/uL Absolute Nucleated RBC 0.00 x10^3/uL Nucleated RBC % 0.0 /100WBC POC Whole Bld Glucose 250 H 208 H (70 - 100) mg/dL 03/04/20 03/04/20 Range/Units 11:31 07:31 WBC (4.8-10.8) x10^3/uL RBC (4.20-5.40) 10^6/uL Hgb (12.0-16.0) g/dL Hct (37.0-47.0) % MCV (81.0-99.0) fL MCH (27.0-31.0) pg MCHC (32.0-36.0) g/dL RDW (12.0-15.0) % Plt Count (130-450) 10^3/uL MPV (7.9-10.8) fL Neut # (Auto) (1.5-6.6) 10^3/uL Lymph # (Auto) (1.5-3.5) 10^3/uL [place] # (Auto) (0.0-1.0) 10^3/uL Eos # (Auto) (0.0-0.7) 10^3/uL Baso # (Auto) (0.0-0.1) 10^3/uL Absolute Nucleated RBC x10^3/uL Nucleated RBC % /100WBC POC Whole Bld Glucose 238 H 268 H (70 - 100) mg/dL ABX Reporting Has patient been on IV antibiotics over the past 48 hours?: No Assessment/Plan - Problem List (1) Closed left hip fracture Impression: She is now postop day 5 of ORIF of the left hip. We will continue aspirin 325 mg twice daily for 6 weeks for DVT prophylaxis. Continue methadone for chronic pain. Creased oxycodone to 15 mg but will decrease the frequency to every 6 hours. Continue with PT and OT while hospitalized. She will need Fosamax started in 9 days which will be 2 weeks after the fracture. She is medically stable for discharge to a skilled nurse facility and is pending placement. (2) Postoperative anemia Impression: She required 1 unit of packed red blood cell postoperatively. Hemoglobin has si nce remained stable without evidence of bleeding. (3) Type 2 diabetes mellitus treated with insulin Impression: She is a brittle diabetic and her blood glucose have ranged from 130s to 250s over the past 24 hours. We will increase her Lantus to 8 units in the morning. Continue with sliding scale. (4) Chronic pain Impression: She has chronic abdominal pain secondary to chronic pancreatitis. She is on methadone which is continued. We will continue with oral oxycodone given her hip fracture. (5) Fall during current hospitalization Impression: This is the cause of her left hip fracture. Continue with fall precautions. Qualifiers: Encounter type: initial encounter Qualified Code(s): W19.XXXA - Unspecified fall, initial encounter; Y92.239 - Unspecified place in hospital as the place of occurrence of the external cause (6) Alcoholic cirrhosis of liver Impression: This is stable at this time. Qualifiers: Ascites presence: with ascites Qualified Code(s): K70.31 - Alcoholic cirrhosis of liver with ascites (7) Homeless Impression: This has made the patient difficult. We are working on getting her to a longterm facility given her left hip fracture.
[2020-03-05] MEDS: DICYCLOMINE 10 MG CAPSULE PO SCH ×4 (08:37→21:28)
[2020-03-05] MEDS: MAGNESIUM OXIDE 400 MG TABLET PO SCH (08:38)
[2020-03-05] MEDS: ASPIRIN 325 MG TABLET PO SCH ×2 (08:39→17:25)
[2020-03-05] MEDS: FERROUS GLUCONATE 324 MG TABLET PO SCH (08:39)
[2020-03-05] MEDS: FAMOTIDINE 20 MG TABLET PO SCH (08:39)
[2020-03-05] MEDS: METHADONE 5 MG TABLET PO SCH ×2 (08:39→21:24)
[2020-03-05] MEDS: MULTIVITAMIN W/MINERALS TABLET PO SCH (08:40)
[2020-03-05] MEDS: METOPROLOL TARTRATE 25 MG TABLET PO SCH ×2 (08:40→21:23)
[2020-03-05] MEDS: allopurinoL 100 MG TABLET PO SCH (08:41)
[2020-03-05] MEDS: CHOLECALCIFEROL 25 MCG TABLET PO SCH (08:41)
[2020-03-05] MEDS: CALCIUM CARBONATE CHEW 500 MG TABLET PO SCH ×2 (08:42→21:24)
[2020-03-05] MEDS: GI COCKTAIL 120 ML BOTTLE PO PRN ×2 (08:43→23:43)
[2020-03-05] MEDS: INSULIN GLARGINE 300 UNIT/3 ML PEN SUBQ SCH (08:43)
[2020-03-05] MEDS: NICOTINE 14 MG PATCH TOP SCH (08:45)
[2020-03-05] MEDS: SODIUM CHLORIDE FLUSH 0.9% 10 ML SYRINGE IVP SCH ×3 (08:48→23:43)
[2020-03-05] MEDS: INSULIN ASPART 300 UNIT/3 ML PEN SUBQ SCH ×4 (08:51→21:24)
[2020-03-06] MEDS: oxyCODONE 5 MG TABLET PO PRN ×4 (02:36→21:58)
[2020-03-06] MEDS: LORazepam 0.5 MG TABLET PO PRN ×3 (02:36→21:51)
[2020-03-06] MEDS: GABAPENTIN 300 MG CAPSULE PO SCH ×3 (06:09→21:51)
--- NOTE | 2020-03-06 07:35 | PROVIDER PROGRESS NOTE ---
Subjective - Prog Note Date Prog Note Date: 03/06/20 - Subjective Subjective: She continues to complain of her chronic abdominal pain. She also complains of left leg pain. She was able to work with physical therapy today. Current Medications - Current Medications Current Medications: Active Medications Acetaminophen (Tylenol) 650 - 975 mg PO Q4HR PRN PRN Reason: PAIN Last Admin: 03/04/20 02:24 Dose: 650 mg Documented by: Albuterol () 2.5 mg INH RTQ4H PRN PRN Reason: Wheezing Allopurinol (Zyloprim) 100 mg PO DAILY [facility] Last Admin: 03/06/20 08:59 Dose: 100 mg Documented by: Aspirin (Margot) 325 mg PO BIDWM [facility] Last Admin: 03/06/20 08:00 Dose: 325 mg Documented by: Calcium Carbonate/Glycine (Tums) 500 mg PO BID [facility] Last Admin: 03/06/20 08:48 Dose: 500 mg Documented by: Cholecalciferol (Vitamin D3) 50 mcg PO DAILY [facility] Last Admin: 03/06/20 08:47 Dose: 50 mcg Documented by: Dicyclomine HCl (Bentyl) 10 mg PO QID [facility] Last Admin: 03/06/20 13:07 Dose: 10 mg Documented by: Famotidine (Pepcid) 20 mg PO DAILY [facility] Last Admin: 03/06/20 08:47 Dose: 20 mg Documented by: Ferrous Gluconate (Fergon) 324 mg PO DAILYWM [facility] Last Admin: 03/06/20 08:00 Dose: 324 mg Documented by: Gabapentin (Neurontin) 600 mg PO TID [facility] Last Admin: 03/06/20 14:17 Dose: 600 mg Documented by: Insulin Aspart (Novolog) 2 - 10 unit SUBQ 0800,1200,1700,2100 [facility]; Protocol Last Admin: 03/06/20 11:42 Dose: 6 unit Documented by: Insulin Glargine (Lantus Solostar) 10 unit SUBQ QDBREAKFAST [facility] Lorazepam (Ativan) 0.5 mg PO Q3H PRN PRN Reason: Anxiety Last Admin: 03/06/20 10:10 Dose: 0.5 mg Documented by: Magnesium Oxide (Mag Ox) 800 mg PO DAILYWM [facility] Last Admin: 03/06/20 08:00 Dose: 800 mg Documented by: Methadone HCl () 5 mg PO BID [facility] Last Admin: 03/06/20 08:48 Dose: 5 mg Documented by: Metoprolol Tartrate (Lopressor) 25 mg PO BID [facility] Last Admin: 03/06/20 08:48 Dose: 25 mg Documented by: Mineral Oil (Cavilon) 1 applic TOP PRN PRN PRN Reason: Skin Care Last Admin: 03/06/20 13:20 Dose: 1 applic Documented by: Multi-Ingredient Mouthwash/Gargle () 30 ml PO Q4H PRN PRN Reason: Abdominal Pain Last Admin: 03/05/20 23:43 Dose: 30 ml Documented by: Multivitamins/Minerals (Theragran M) 1 tab PO DAILYWM [facility] Last Admin: 03/06/20 08:00 Dose: 1 tab Documented by: Nicotine (Nicoderm) 1 patch TOP DAILY [facility] Last Admin: 03/06/20 08:52 Dose: 1 patch Documented by: Ondansetron HCl (Zofran Odt) 4 mg TL Q4HR PRN PRN Reason: Nausea / Vomiting Last Admin: 03/02/20 00:21 Dose: 4 mg Documented by: Oxycodone HCl (Roxicodone) 15 mg PO Q6HR PRN PRN Reason: PAIN Last Admin: 03/06/20 09:14 Dose: 15 mg Documented by: Prochlorperazine Edisylate (Compazine Inj) 10 mg IVP Q6HR PRN PRN Reason: Nausea / Vomiting Last Admin: 03/02/20 02:36 Dose: 10 mg Documented by: Senna (Senokot) 8.6 mg PO BID PRN PRN Reason: Constipation Sodium Chloride (Normal Saline Flush 0.9%) 10 ml IVP 0100,0900,1700 [facility] Last Admin: 03/06/20 09:01 Dose: 10 ml Documented by: Sodium Chloride (Normal Saline Flush 0.9%) 10 ml IVP PRN PRN PRN Reason: NEEDED PER PROVIDER ORDERS Last Admin: 03/03/20 12:22 Dose: 10 ml Documented by: Omeprazole 40 mg PO DAILY 08/12/18 Gabapentin 600 mg PO TID 10/28/19 allopurinoL [Allopurinol] 100 mg PO DAILY 10/28/19 Insulin Aspart [NovoLOG] 4 unit SQ TIDWM 02/09/20 Haloperidol Oral Soln [Haldol Oral Soln] 0.5 - 20 mg PO Q2H PRN 02/24/20 Insulin Glargine [Lantus Solostar] 5 unit SUBQ BID 02/24/20 LORazepam [Ativan] 0.5 - 2 mg PO Q2H PRN 02/24/20 Methadone 5 mg PO BID 02/24/20 Morphine Sulfate [Morphine Sulf Oral (Roxanol)] 5 mg PO Q1H PRN 02/24/20 Ondansetron [Ondansetron Odt] 4 mg PO Q8H PRN 02/24/20 Sennosides [Senna] 8.6 mg PO BID PRN 02/24/20 oxyCODONE [Roxicodone] 5 mg PO Q4H PRN 02/24/20 Objective - Vital Signs/Intake & Output Reviewed Vital Signs: Yes Vital Signs: Vital Signs x48h Temp Pulse Resp BP Pulse Ox 03/06/20 05:00 36.8 C 64 20 130/69 96 03/05/20 23:44 36.8 C 70 20 136/79 H 97 Intake & Output: Intake & Output 03/03/20 03/04/20 03/05/20 03/06/20 23:59 23:59 23:59 23:59 Intake Total 2240 1508 1460 240 Output Total 1425 1000 600 300 Balance 815 508 860 -60 - Objective General Appearance: positive: No acute distress, Alert Eyes Bilateral: positive: Normal inspection ENT: positive: ENT inspection nml Neck: positive: Nml inspection Neurologic/Psychiatric: positive: Oriented x3. negative: Disoriented to person, Disoriented to place, Disoriented to time - Lab Results Fish Bones: 03/05/20 05:25 03/04/20 05:18 Other Labs: Lab Results x24hrs 03/06/20 03/05/20 03/05/20 Range/Units 07:28 20:34 16:47 POC Whole Bld Glucose 234 H 276 H 255 H (70 - 100) mg/dL 03/05/20 Range/Units 11:55 POC Whole Bld Glucose 289 H (70 - 100) mg/dL Assessment/Plan - Problem List (1) Closed left hip fracture Impression: She is now postop day 6 of ORIF left hip. Continue aspirin 325 mg twice daily for 6 weeks for DVT prophylaxis. Continue with current pain regimen. Continue PT while hospitalized. He will need Fosamax started 2 weeks after the fracture. She is medically stable for discharge and is pending placement. (2) Postoperative anemia Impression: She required 1 unit of packed red blood cells postoperatively. Her hemoglobin has since been stable and we are no longer checking daily labs. (3) Type 2 diabetes mellitus treated with insulin Impression: She has history of being a brittle diabetic and has been admitted for hypoglycemia. Blood sugars have been elevated the past 24 hours in the 200s. We will increase Lantus to 10 units in the morning (4) Chronic pain Impression: She has chronic abdominal pain secondary to chronic pancreatitis. She is tolerating a diet. Continue with current pain regimen. (5) Fall during current hospitalization Impression: This was the cause of her left hip fracture. Fall precautions. Qualifiers: Encounter type: initial encounter Qualified Code(s): W19.XXXA - Unspecified fall, initial encounter; Y92.239 - Unspecified place in hospital as the place of occurrence of the external cause (6) Alcoholic cirrhosis of liver Impression: Secondary to alcohol use. Stable. Qualifiers: Ascites presence: with ascites Qualified Code(s): K70.31 - Alcoholic cirrhosis of liver with ascites (7) Homeless Impression: This has made disposition difficult.
[2020-03-06] MEDS: MAGNESIUM OXIDE 400 MG TABLET PO SCH (08:00)
[2020-03-06] MEDS ORDERED: INSULIN GLARGINE 300 UNIT/3 ML PEN SUBQ SCH (08:00)
[2020-03-06] MEDS: INSULIN ASPART 300 UNIT/3 ML PEN SUBQ SCH ×4 (08:00→21:55)
[2020-03-06] MEDS: MULTIVITAMIN W/MINERALS TABLET PO SCH (08:00)
[2020-03-06] MEDS: ASPIRIN 325 MG TABLET PO SCH ×2 (08:00→17:43)
[2020-03-06] MEDS: FERROUS GLUCONATE 324 MG TABLET PO SCH (08:00)
[2020-03-06] MEDS: FAMOTIDINE 20 MG TABLET PO SCH (08:47)
[2020-03-06] MEDS: CHOLECALCIFEROL 25 MCG TABLET PO SCH (08:47)
[2020-03-06] MEDS: METHADONE 5 MG TABLET PO SCH ×2 (08:48→21:52)
[2020-03-06] MEDS: CALCIUM CARBONATE CHEW 500 MG TABLET PO SCH ×2 (08:48→21:51)
[2020-03-06] MEDS: METOPROLOL TARTRATE 25 MG TABLET PO SCH ×2 (08:48→21:52)
[2020-03-06] MEDS: NICOTINE 14 MG PATCH TOP SCH (08:52)
[2020-03-06] MEDS: DICYCLOMINE 10 MG CAPSULE PO SCH ×4 (08:58→21:51)
[2020-03-06] MEDS: allopurinoL 100 MG TABLET PO SCH (08:59)
[2020-03-06] MEDS: SODIUM CHLORIDE FLUSH 0.9% 10 ML SYRINGE IVP SCH ×2 (09:01→15:35)
[2020-03-06] MEDS ORDERED: HYDROmorphone 1 MG/ML CARPUJECT IVP SCH ×2 (11:22→12:00)
[2020-03-06] MEDS: MIN OIL/DIMETHICON/COCONUT OIL 92 GM TUBE TOP PRN (13:20)
[2020-03-06] MEDS: GI COCKTAIL 120 ML BOTTLE PO PRN ×2 (15:35→22:06)
[2020-03-07] MEDS: SODIUM CHLORIDE FLUSH 0.9% 10 ML SYRINGE IVP SCH ×3 (01:28→16:17)
[2020-03-07] MEDS: LORazepam 0.5 MG TABLET PO PRN ×2 (01:28→10:40)
[2020-03-07] MEDS: GABAPENTIN 300 MG CAPSULE PO SCH ×3 (05:37→21:22)
[2020-03-07] MEDS: oxyCODONE 5 MG TABLET PO PRN ×2 (05:37→13:43)
--- NOTE | 2020-03-07 10:28 | PROVIDER PROGRESS NOTE ---
Assessment/Plan - Problem List (1) Closed left hip fracture Assessment/Plan: She is comfort sleeping. today is day 7 after s/p ORIF surgery, continue current pain management, and DVT prophylaxis. pt is medical stable for d/c, social group worker was consulted for placement (2) Postoperative anemia Impression: stable, no complaints, and hold of CBC check now. (3) Type 2 diabetes mellitus treated with insulin Impression: good control of glucose level, continue Lantus to 10 units in the morning and slide scale (4) Chronic pain Impression: pt seems comfort now, Continue with current pain regimen. (5) Fall during current hospitalization Impression: This was the cause of her left hip fracture. continue Fall precautions. (6) Alcoholic cirrhosis of liver Impression: stable, Secondary to alcohol use. (7) Homeless Impression: This has made disposition difficult. consult with social group worker - Current Meds Current Meds: Current Medications Generic Name Dose Route Start Last Admin Trade Name Freq PRN Reason Stop Dose Admin Acetaminophen 650 - 975 mg 02/29/20 13:22 03/04/20 02:24 Tylenol PO 650 mg Q4HR PRN Administration PAIN Allopurinol 100 mg 02/25/20 09:00 03/06/20 08:59 Zyloprim PO 100 mg DAILY [facility] Administration Aspirin 325 mg 02/29/20 17:00 03/06/20 17:43 Margot PO 325 mg BIDWM [facility] Administration Calcium Carbonate/Glycine 500 mg 03/02/20 21:00 03/06/20 21:51 Tums PO 500 mg BID [facility] Administration Cholecalciferol 50 mcg 03/03/20 09:00 03/06/20 08:47 Vitamin D3 PO 50 mcg DAILY [facility] Administration Dicyclomine HCl 10 mg 03/04/20 21:20 03/06/20 21:51 Bentyl PO 10 mg QID [facility] Administration Famotidine 20 mg 02/25/20 09:10 03/06/20 08:47 Pepcid PO 20 mg DAILY [facility] Administration Ferrous Gluconate 324 mg 02/26/20 12:00 03/06/20 08:00 Fergon PO 324 mg DAILYWM [facility] Administration Gabapentin 600 mg 02/24/20 22:00 03/07/20 05:37 Neurontin PO 600 mg TID [facility] Administration Insulin Aspart 2 - 10 unit 03/04/20 12:00 09/07/20 21:55 Novolog SUBQ 2 unit 0800,1200,1700,2100 [facility] Administration Protocol Lorazepam 0.5 mg 02/25/20 17:09 03/07/20 01:28 Ativan PO 0.5 mg Q3H PRN Administration Anxiety Magnesium Oxide 800 mg 03/01/20 08:00 03/06/20 08:00 Mag Ox PO 800 mg DAILYWM [facility] Administration Methadone HCl 5 mg 02/24/20 21:00 03/06/20 21:52 PO 5 mg BID [facility] Administration Metoprolol Tartrate 25 mg 03/02/20 23:00 03/06/20 21:52 Lopressor PO 25 mg BID [facility] Administration Mineral Oil 1 applic 02/24/20 17:34 03/06/20 13:20 Cavilon TOP 1 applic PRN PRN Administration Skin Care Multi-Ingredient Mouthwash/Gargle 30 ml 03/02/20 16:17 03/06/20 22:06 PO 30 ml Q4H PRN Administration Abdominal Pain Multivitamins/Minerals 1 tab 02/25/20 09:00 03/06/20 08:00 Theragran M PO 1 tab DAILYWM [facility] Administration Nicotine 1 patch 02/24/20 17:00 03/06/20 08:52 Nicoderm TOP 1 patch DAILY [facility] Administration Ondansetron HCl 4 mg 02/25/20 00:57 03/02/20 00:21 Zofran Odt TL 4 mg Q4HR PRN Administration Nausea / Vomiting Oxycodone HCl 15 mg 03/05/20 10:49 03/07/20 05:37 Roxicodone PO 15 mg Q6HR PRN Administration PAIN Prochlorperazine Edisylate 10 mg 02/29/20 13:22 03/02/20 02:36 Compazine Inj IVP 10 mg Q6HR PRN Administration Nausea / Vomiting Sodium Chloride 10 ml 02/29/20 17:00 03/07/20 01:28 Normal Saline Flush 0.9% IVP 10 ml 0100,0900,1700 [facility] Administration Sodium Chloride 10 ml 02/29/20 13:22 03/03/20 12:22 Normal Saline Flush 0.9% IVP 10 ml PRN PRN Administration NEEDED PER PROVIDER ORDERS - Lab Result Fish Bone Diagrams: 03/05/20 05:25 03/04/20 05:18 Subjective - Subjective Patient Reports: No Complaints Objective Vital Signs: Vital Signs - 24 hr 03/06/20 03/06/20 03/06/20 11:30 13:00 15:20 Temperature 36.7 C 36.6 C Heart Rate 70 Heart Rate [ 79 74 Brachial] Respiratory 20 16 Rate Blood Pressure Blood Pressure 113/79 120/75 [Right Brachial artery] O2 Saturation 98 100 03/06/20 03/06/20 03/06/20 21:00 21:52 23:40 Temperature 36.6 C 36.4 C L Heart Rate Heart Rate [ 78 69 Brachial] Respiratory 18 16 Rate Blood Pressure 124/73 Blood Pressure 134/68 H 134/73 H [Right Brachial artery] O2 Saturation 100 99 03/07/20 03/07/20 03/07/20 05:25 08:00 08:02 Temperature 36.8 C 36.7 C Heart Rate 71 Heart Rate [ 70 71 Brachial] Respiratory 16 18 Rate Blood Pressure Blood Pressure 141/75 H 125/72 [Right Brachial artery] O2 Saturation 99 97 03/07/20 09:27 Temperature 36.7 C Heart Rate 71 Heart Rate [ Brachial] Respiratory 18 Rate Blood Pressure Blood Pressure [Right Brachial artery] O2 Saturation 97 Oxygen O2 Source Room air I&O (Last 24 Hrs): Intake and Output Totals x24h 03/05/20 03/06/20 03/07/20 23:59 23:59 23:59 Intake Total 1460 1190 750 Output Total 600 900 500 Balance 860 290 250 General: Alert, No acute distress HEENT: Atraumatic Neck: Supple Lymphatic: no adenopathy Neuro: Alert, Non Focal Cardiovascular: Regular rate, Normal S1, Normal S2 Respiratory: Chest non-tender, No respiratory distress Abdomen: Normal bowel sounds, Soft Extremities: Normal pulses - Results Results: Laboratory Results WBC 8.1 x10^3/uL (4.8-10.8) 03/05/20 05:25 RBC 2.77 10^6/uL (4.20-5.40) L 03/05/20 05:25 Hgb 8.7 g/dL (12.0-16.0) L 03/05/20 05:25 Hct 26.5 % (37.0-47.0) L 03/05/20 05:25 MCV 95.7 fL (81.0-99.0) 03/05/20 05:25 MCH 31.4 pg (27.0-31.0) H 03/05/20 05:25 MCHC 32.8 g/dL (32.0-36.0) 03/05/20 05:25 RDW 15.7 % (12.0-15.0) H 03/05/20 05:25 Plt Count 468 10^3/uL (130-450) H 03/05/20 05:25 MPV 10.0 fL (7.9-10.8) 03/05/20 05:25 Neut # (Auto) 5.0 10^3/uL (1.5-6.6) 03/05/20 05:25 Lymph # (Auto) 2.2 10^3/uL (1.5-3.5) 03/05/20 05:25 [place] # (Auto) 0.7 10^3/uL (0.0-1.0) 03/05/20 05:25 Eos # (Auto) 0.1 10^3/uL (0.0-0.7) 03/05/20 05:25 Baso # (Auto) 0.1 10^3/uL (0.0-0.1) 03/05/20 05:25 Absolute Nucleated RBC 0.00 x10^3/uL 03/05/20 05:25 Nucleated RBC % 0.0 /100WBC 03/05/20 05:25 PT 11.9 secs (9.9-12.6) 02/24/20 16:03 INR 1.0 (0.8-1.2) 02/24/20 16:03 Sodium 131 mmol/L (135-145) L 03/04/20 05:18 Potassium 3.8 mmol/L (3.5-5.0) 03/04/20 05:18 Chloride 98 mmol/L (101-111) L 03/04/20 05:18 Carbon Dioxide 26 mmol/L (21-32) 03/04/20 05:18 Anion Gap 7.0 (6-13) 03/04/20 05:18 BUN 15 mg/dL (6-20) 03/04/20 05:18 Creatinine 0.8 mg/dL (0.4-1.0) 03/04/20 05:18 Estimated GFR (MDRD) 75 (>89) L 03/04/20 05:18 Glucose 312 mg/dL (70-100) H 03/04/20 05:18 POC Whole Bld Glucose 152 mg/dL (70 - 100) H 03/07/20 07:35 Calcium 7.3 mg/dL (8.5-10.3) L 03/04/20 05:18 Phosphorus 3.0 mg/dL (2.5-4.6) 02/29/20 08:07 Magnesium 1.7 mg/dL (1.7-2.8) 03/03/20 04:40 Iron 78 ug/dL (28-170) 02/26/20 04:45 TIBC 132 ug/dL (250-450) L 02/26/20 04:45 % Saturation 59 % (20-50) H 02/26/20 04:45 Transferrin 94 mg/dL (192-382) L 02/26/20 04:45 Total Bilirubin 0.7 mg/dL (0.2-1.0) 02/24/20 16:03 AST 32 IU/L (10-42) 02/24/20 16:03 ALT 36 IU/L (10-60) 02/24/20 16:03 Alkaline Phosphatase 627 IU/L (42-121) H 02/24/20 16:03 Total Protein 6.3 g/dL (6.7-8.2) L 02/24/20 16:03 Albumin 1.8 g/dL (3.2-5.5) L 02/24/20 16:03 Globulin 4.5 g/dL (2.1-4.2) H 02/24/20 16:03 Albumin/Globulin Ratio 0.4 (1.0-2.2) L 02/24/20 16:03 Vitamin B12 3526 pg/mL (180-914) H 02/26/20 04:45 Folate 9.14 ng/mL (5.90 - >24.8) 02/26/20 04:45 Urine Color YELLOW 03/03/20 07:52 Urine Clarity CLEAR (CLEAR) 03/03/20 07:52 Urine pH 6.0 PH (5.0-7.5) 03/03/20 07:52 Ur Specific [place] 1.010 (1.002-1.030) 03/03/20 07:52 Urine Protein NEGATIVE mg/dL (NEGATIVE) 03/03/20 07:52 Urine Glucose (UA) NEGATIVE mg/dL (NEGATIVE) 03/03/20 07:52 Urine Ketones NEGATIVE mg/dL (NEGATIVE) 03/03/20 07:52 Urine Occult Blood MODERATE (NEGATIVE) H 03/03/20 07:52 Urine Nitrite NEGATIVE (NEGATIVE) 03/03/20 07:52 Urine Bilirubin NEGATIVE (NEGATIVE) 03/03/20 07:52 Urine Urobilinogen 0.2 (NORMAL) E.U./dL (NORMAL) 03/03/20 07:52 Ur Leukocyte Esterase NEGATIVE (NEGATIVE) 03/03/20 07:52 Urine RBC 6-10 /HPF (0-5) H 03/03/20 07:52 Urine WBC 0-3 /HPF (0-5) 03/03/20 07:52 Ur Squamous Epith Cells FEW Squamous (<= Few) 03/03/20 07:52 Urine Crystals 0-2 Calcium Oxalate /LPF 03/03/20 07:52 Urine Bacteria Rare /HPF (None Seen) 03/03/20 07:52 Urine Culture Comments NOT INDICATED 03/03/20 07:52 Stl Occult Blood (IFOB) NEGATIVE (NEGATIVE) 03/01/20 06:55 Coronavirus (PCR) NEGATIVE 02/21/20 14:40 Ref Lab Test Result REPORT 02/27/20 12:35 Blood Type O POSITIVE 02/29/20 09:20 Antibody Screen NEGATIVE 02/29/20 09:20 Crossmatch IS Only See Detail 02/29/20 09:20 - Procedures Procedures: Procedures INSERTION OF INFUSION DEV INTO SUP VENA CAVA, PERC APPROACH (08/12/18) ABX Reporting Has patient been on IV antibiotics over the past 48 hours?: No Current Medications - Current Medications Current Medications: Active Medications Acetaminophen (Tylenol) 650 - 975 mg PO Q4HR PRN PRN Reason: PAIN Last Admin: 03/04/20 02:24 Dose: 650 mg Documented by: Albuterol () 2.5 mg INH RTQ4H PRN PRN Reason: Wheezing Allopurinol (Zyloprim) 100 mg PO DAILY [facility] Last Admin: 03/07/20 10:41 Dose: 100 mg Documented by: Aspirin (Margot) 325 mg PO BIDWM [facility] Last Admin: 03/07/20 10:41 Dose: 325 mg Documented by: Calcium Carbonate/Glycine (Tums) 500 mg PO BID [facility] Last Admin: 03/07/20 10:42 Dose: 500 mg Documented by: Cholecalciferol (Vitamin D3) 50 mcg PO DAILY [facility] Last Admin: 03/07/20 10:40 Dose: 50 mcg Documented by: Dicyclomine HCl (Bentyl) 10 mg PO QID [facility] Last Admin: 03/07/20 10:40 Dose: 10 mg Documented by: Famotidine (Pepcid) 20 mg PO DAILY [facility] Last Admin: 03/07/20 10:41 Dose: 20 mg Documented by: Ferrous Gluconate (Fergon) 324 mg PO DAILYWM [facility] Last Admin: 03/07/20 10:39 Dose: 324 mg Documented by: Gabapentin (Neurontin) 600 mg PO TID [facility] Last Admin: 03/07/20 05:37 Dose: 600 mg Documented by: Insulin Aspart (Novolog) 2 - 10 unit SUBQ 0800,1200,1700,2100 [facility]; Protocol Last Admin: 03/07/20 10:43 Dose: 2 unit Documented by: Insulin Glargine (Lantus Solostar) 10 unit SUBQ QDBREAKFAST [facility] Last Admin: 03/07/20 10:43 Dose: 10 unit Documented by: Lorazepam (Ativan) 0.5 mg PO Q3H PRN PRN Reason: Anxiety Last Admin: 03/07/20 10:40 Dose: 0.5 mg Documented by: Magnesium Oxide (Mag Ox) 800 mg PO DAILYWM [facility] Last Admin: 03/07/20 10:42 Dose: 800 mg Documented by: Methadone HCl () 5 mg PO BID [facility] Last Admin: 03/07/20 10:39 Dose: 5 mg Documented by: Metoprolol Tartrate (Lopressor) 25 mg PO BID [facility] Last Admin: 03/07/20 10:41 Dose: 25 mg Documented by: Mineral Oil (Cavilon) 1 applic TOP PRN PRN PRN Reason: Skin Care Last Admin: 03/06/20 13:20 Dose: 1 applic Documented by: Multi-Ingredient Mouthwash/Gargle () 30 ml PO Q4H PRN PRN Reason: Abdominal Pain Last Admin: 03/06/20 22:06 Dose: 30 ml Documented by: Multivitamins/Minerals (Theragran M) 1 tab PO DAILYWM [facility] Last Admin: 03/07/20 10:42 Dose: 1 tab Documented by: Nicotine (Nicoderm) 1 patch TOP DAILY [facility] Last Admin: 03/07/20 10:44 Dose: 1 patch Documented by: Ondansetron HCl (Zofran Odt) 4 mg TL Q4HR PRN PRN Reason: Nausea / Vomiting Last Admin: 03/02/20 00:21 Dose: 4 mg Documented by: Oxycodone HCl (Roxicodone) 15 mg PO Q6HR PRN PRN Reason: PAIN Last Admin: 03/07/20 05:37 Dose: 15 mg Documented by: Prochlorperazine Edisylate (Compazine Inj) 10 mg IVP Q6HR PRN PRN Reason: Nausea / Vomiting Last Admin: 03/02/20 02:36 Dose: 10 mg Documented by: Senna (Senokot) 8.6 mg PO BID PRN PRN Reason: Constipation Sodium Chloride (Normal Saline Flush 0.9%) 10 ml IVP 0100,0900,1700 [facility] Last Admin: 03/07/20 01:28 Dose: 10 ml Documented by: Sodium Chloride (Normal Saline Flush 0.9%) 10 ml IVP PRN PRN PRN Reason: NEEDED PER PROVIDER ORDERS Last Admin: 03/03/20 12:22 Dose: 10 ml Documented by: Omeprazole 40 mg PO DAILY 08/12/18 Gabapentin 600 mg PO TID 10/28/19 allopurinoL [Allopurinol] 100 mg PO DAILY 10/28/19 Insulin Aspart [NovoLOG] 4 unit SQ TIDWM 02/09/20 Haloperidol Oral Soln [Haldol Oral Soln] 0.5 - 20 mg PO Q2H PRN 02/24/20 Insulin Glargine [Lantus Solostar] 5 unit SUBQ BID 02/24/20 LORazepam [Ativan] 0.5 - 2 mg PO Q2H PRN 02/24/20 Methadone 5 mg PO BID 02/24/20 Morphine Sulfate [Morphine Sulf Oral (Roxanol)] 5 mg PO Q1H PRN 02/24/20 Ondansetron [Ondansetron Odt] 4 mg PO Q8H PRN 02/24/20 Sennosides [Senna] 8.6 mg PO BID PRN 02/24/20 oxyCODONE [Roxicodone] 5 mg PO Q4H PRN 02/24/20
[2020-03-07] MEDS: FERROUS GLUCONATE 324 MG TABLET PO SCH (10:39)
[2020-03-07] MEDS: METHADONE 5 MG TABLET PO SCH ×2 (10:39→21:22)
[2020-03-07] MEDS: CHOLECALCIFEROL 25 MCG TABLET PO SCH (10:40)
[2020-03-07] MEDS: DICYCLOMINE 10 MG CAPSULE PO SCH ×4 (10:40→21:22)
[2020-03-07] MEDS: ASPIRIN 325 MG TABLET PO SCH ×2 (10:41→16:24)
[2020-03-07] MEDS: allopurinoL 100 MG TABLET PO SCH (10:41)
[2020-03-07] MEDS: FAMOTIDINE 20 MG TABLET PO SCH (10:41)
[2020-03-07] MEDS: METOPROLOL TARTRATE 25 MG TABLET PO SCH ×2 (10:41→21:23)
[2020-03-07] MEDS: CALCIUM CARBONATE CHEW 500 MG TABLET PO SCH ×2 (10:42→21:22)
[2020-03-07] MEDS: MAGNESIUM OXIDE 400 MG TABLET PO SCH (10:42)
[2020-03-07] MEDS: MULTIVITAMIN W/MINERALS TABLET PO SCH (10:42)
[2020-03-07] MEDS: INSULIN GLARGINE 300 UNIT/3 ML PEN SUBQ SCH (10:43)
[2020-03-07] MEDS: INSULIN ASPART 300 UNIT/3 ML PEN SUBQ SCH ×4 (10:43→21:23)
[2020-03-07] MEDS: NICOTINE 14 MG PATCH TOP SCH (10:44)
[2020-03-07] MEDS: PROCHLORPERAZINE 10 MG/2 ML VIAL IVP PRN (16:17)
[2020-03-07] MEDS: GI COCKTAIL 120 ML BOTTLE PO PRN ×2 (16:23→21:21)
[2020-03-07] MEDS: PANTOPRAZOLE 40 MG TABLET PO SCH (16:59)
[2020-03-07] MEDS: MIN OIL/DIMETHICON/COCONUT OIL 92 GM TUBE TOP PRN (17:12)
[2020-03-08] MEDS: oxyCODONE 5 MG TABLET PO PRN ×4 (01:25→19:59)
[2020-03-08] MEDS: SODIUM CHLORIDE FLUSH 0.9% 10 ML SYRINGE IVP SCH ×3 (01:25→17:16)
[2020-03-08] MEDS: GABAPENTIN 300 MG CAPSULE PO SCH ×3 (05:40→21:33)
[2020-03-08] MEDS: PANTOPRAZOLE 40 MG TABLET PO SCH (05:40)
[2020-03-08] MEDS: GI COCKTAIL 120 ML BOTTLE PO PRN ×3 (05:44→20:20)
[2020-03-08] MEDS: FERROUS GLUCONATE 324 MG TABLET PO SCH (08:14)
[2020-03-08] MEDS: MAGNESIUM OXIDE 400 MG TABLET PO SCH (08:14)
[2020-03-08] MEDS: INSULIN GLARGINE 300 UNIT/3 ML PEN SUBQ SCH (08:15)
[2020-03-08] MEDS: INSULIN ASPART 300 UNIT/3 ML PEN SUBQ SCH ×4 (08:15→21:32)
[2020-03-08] MEDS: FAMOTIDINE 20 MG TABLET PO SCH (08:16)
[2020-03-08] MEDS: DICYCLOMINE 10 MG CAPSULE PO SCH ×4 (08:16→21:31)
[2020-03-08] MEDS: METHADONE 5 MG TABLET PO SCH ×2 (08:17→21:32)
[2020-03-08] MEDS: MULTIVITAMIN W/MINERALS TABLET PO SCH (08:17)
[2020-03-08] MEDS: CHOLECALCIFEROL 25 MCG TABLET PO SCH (08:18)
[2020-03-08] MEDS: allopurinoL 100 MG TABLET PO SCH (08:18)
[2020-03-08] MEDS: METOPROLOL TARTRATE 25 MG TABLET PO SCH ×2 (08:19→21:33)
[2020-03-08] MEDS: ASPIRIN 325 MG TABLET PO SCH ×2 (08:19→17:16)
[2020-03-08] MEDS: NICOTINE 14 MG PATCH TOP SCH (08:20)
[2020-03-08] MEDS: CALCIUM CARBONATE CHEW 500 MG TABLET PO SCH ×2 (08:21→21:31)
[2020-03-08] MEDS: LORazepam 0.5 MG TABLET PO PRN ×2 (08:24→11:41)
[2020-03-08] MEDS ORDERED: HYDROmorphone 2 MG TABLET PO PRN (10:43)
--- NOTE | 2020-03-08 11:23 | PROVIDER PROGRESS NOTE ---
Assessment/Plan - Problem List (1) Closed left hip fracture Assessment/Plan: 03/08 Physical therapist/occupational therapist report patient did very great job on today, cooperative with physical therapist as well. Patient's dress on the surgery site is clean, no drainage, skin is intact, no swelling, no erythema, no infection. Distal neuroVascular is intact, patient walked with physical therapist on today. She is comfort sleeping. today is day 7 after s/p ORIF surgery, continue current pain management, and DVT prophylaxis. pt is medical stable for d/c, social work program coordinator was consulted for placement (2) Postoperative anemia Impression: stable, no complaints, and hold of CBC check now. (3) Type 2 diabetes mellitus treated with insulin Impression: 99,Glucose is under control, We will continue Lantus and sliding scale good control of glucose level, continue Lantus to 10 units in the morning and slide scale (4) Chronic pain Impression: pt seems comfort now, Continue with current pain regimen. (5) Fall during current hospitalization Impression: This was the cause of her left hip fracture. continue Fall precautions. (6) Alcoholic cirrhosis of liver Impression: stable, Secondary to alcohol use. (7) Homeless Impression: This has made disposition difficult. consult with social work program coordinator - Current Meds Current Meds: Current Medications Generic Name Dose Route Start Last Admin Trade Name Freq PRN Reason Stop Dose Admin Acetaminophen 650 - 975 mg 02/29/20 13:22 03/04/20 02:24 Tylenol PO 650 mg Q4HR PRN Administration PAIN Allopurinol 100 mg 02/25/20 09:00 03/08/20 08:18 Zyloprim PO 100 mg DAILY [facility]ON Administration Aspirin 325 mg 02/29/20 17:00 03/08/20 08:19 Margot PO 325 mg BIDWM [facility] Administration Calcium Carbonate/Glycine 500 mg 03/02/20 21:00 03/08/20 08:21 Tums PO 500 mg BID [facility] Administration Cholecalciferol 50 mcg 03/03/20 09:00 03/08/20 08:18 Vitamin D3 PO 50 mcg DAILY [facility] Administration Dicyclomine HCl 10 mg 03/04/20 21:20 03/08/20 08:16 Bentyl PO 10 mg QID [facility] Administration Famotidine 20 mg 02/25/20 09:10 03/08/20 08:16 Pepcid PO 20 mg DAILY [facility] Administration Ferrous Gluconate 324 mg 02/26/20 12:00 03/08/20 08:14 Fergon PO 324 mg DAILYWM [facility] Administration Gabapentin 600 mg 02/24/20 22:00 03/08/20 05:40 Neurontin PO 600 mg TID [facility] Administration Insulin Aspart 2 - 10 unit 03/04/20 12:00 03/08/20 08:15 Novolog SUBQ 2 unit 0800,1200,1700,2100 [facility] Administration Protocol Insulin Glargine 10 unit 03/07/20 08:00 03/08/20 08:15 Lantus Solostar SUBQ 10 unit QDBREAKFAST [facility] Administration Lorazepam 0.5 mg 02/25/20 17:09 03/08/20 08:24 Ativan PO 0.5 mg Q3H PRN Administration Anxiety Magnesium Oxide 800 mg 03/01/20 08:00 03/08/20 08:14 Mag Ox PO 800 mg DAILYWM [facility] Administration Methadone HCl 5 mg 02/24/20 21:00 03/08/20 08:17 PO 5 mg BID [facility] Administration Metoprolol Tartrate 25 mg 03/02/20 23:00 03/08/20 08:19 Lopressor PO 25 mg BID [facility] Administration Mineral Oil 1 applic 02/24/20 17:34 03/07/20 17:12 Cavilon TOP 1 applic PRN PRN Administration Skin Care Multi-Ingredient Mouthwash/Gargle 30 ml 03/02/20 16:17 03/08/20 08:18 PO 30 ml Q4H PRN Administration Abdominal Pain Multivitamins/Minerals 1 tab 02/25/20 09:00 03/08/20 08:17 Theragran M PO 1 tab DAILYWM [facility] Administration Nicotine 1 patch 02/24/20 17:00 03/08/20 08:20 Nicoderm TOP 1 patch DAILY [facility] Administration Ondansetron HCl 4 mg 02/25/20 00:57 03/02/20 00:21 Zofran Odt TL 4 mg Q4HR PRN Administration Nausea / Vomiting Oxycodone HCl 15 mg 03/05/20 10:49 03/08/20 08:16 Roxicodone PO 15 mg Q6HR PRN Administration PAIN Pantoprazole Sodium 40 mg 03/07/20 17:00 03/08/20 05:40 Protonix PO 40 mg QDAC [facility] Administration Prochlorperazine Edisylate 10 mg 02/29/20 13:22 03/07/20 16:17 Compazine Inj IVP 10 mg Q6HR PRN Administration Nausea / Vomiting Sodium Chloride 10 ml 02/29/20 17:00 03/08/20 08:20 Normal Saline Flush 0.9% IVP 10 ml 0100,0900,1700 [facility] Administration Sodium Chloride 10 ml 02/29/20 13:22 03/03/20 12:22 Normal Saline Flush 0.9% IVP 10 ml PRN PRN Administration NEEDED PER PROVIDER ORDERS - Lab Result Fish Bone Diagrams: 03/05/20 05:25 03/04/20 05:18 - Additional Planning My Orders: My Active Orders 03/07/20 17:00 Pantoprazole [Protonix] 40 mg PO QDAC 03/08/20 10:41 Out of bed 4+ hours [RC] QID 03/08/20 10:43 HYDROmorphone [Dilaudid] 0.5 mg PO Q8HR PRN Subjective - Subjective Patient Reports: Feeling Better Objective Vital Signs: Vital Signs - 24 hr 03/07/20 03/07/20 03/07/20 11:20 15:58 19:46 Temperature 37.0 C 37.0 C 36.8 C Heart Rate [ 75 75 70 Brachial] Respiratory 18 20 20 Rate Blood Pressure Blood Pressure 132/71 H 131/70 H 119/75 [Right Brachial artery] O2 Saturation 97 96 98 03/07/20 03/08/20 03/08/20 21:23 01:00 03:47 Temperature 36.7 C 36.7 C Heart Rate [ 69 75 Brachial] Respiratory 16 16 Rate Blood Pressure 119/75 Blood Pressure 152/69 H 119/77 [Right Brachial artery] O2 Saturation 97 97 03/08/20 03/08/20 07:30 11:11 Temperature 36.7 C 36.6 C Heart Rate [ 69 79 Brachial] Respiratory 16 16 Rate Blood Pressure Blood Pressure 148/83 H 119/79 [Right Brachial artery] O2 Saturation 93 98 Oxygen O2 Source Room air I&O (Last 24 Hrs): Intake and Output Totals x24h 03/06/20 03/07/20 03/08/20 23:59 23:59 23:59 Intake Total 1190 2640 1200 Output Total 900 1100 950 Balance 290 1540 250 General: Alert, No acute distress HEENT: Atraumatic Neck: Supple Lymphatic: no adenopathy Neuro: Alert, Non Focal, Oriented Times 3 Cardiovascular: Regular rate, Normal S1, Normal S2 Respiratory: Chest non-tender, No respiratory distress Abdomen: Normal bowel sounds, Soft, No tenderness Extremities: Normal pulses - Results Results: Laboratory Results WBC 8.1 x10^3/uL (4.8-10.8) 03/05/20 05:25 RBC 2.77 10^6/uL (4.20-5.40) L 03/05/20 05:25 Hgb 8.7 g/dL (12.0-16.0) L 03/05/20 05:25 Hct 26.5 % (37.0-47.0) L 03/05/20 05:25 MCV 95.7 fL (81.0-99.0) 03/05/20 05:25 MCH 31.4 pg (27.0-31.0) H 03/05/20 05:25 MCHC 32.8 g/dL (32.0-36.0) 03/05/20 05:25 RDW 15.7 % (12.0-15.0) H 03/05/20 05:25 Plt Count 468 10^3/uL (130-450) H 03/05/20 05:25 MPV 10.0 fL (7.9-10.8) 03/05/20 05:25 Neut # (Auto) 5.0 10^3/uL (1.5-6.6) 03/05/20 05:25 Lymph # (Auto) 2.2 10^3/uL (1.5-3.5) 03/05/20 05:25 [place] # (Auto) 0.7 10^3/uL (0.0-1.0) 03/05/20 05:25 Eos # (Auto) 0.1 10^3/uL (0.0-0.7) 03/05/20 05:25 Baso # (Auto) 0.1 10^3/uL (0.0-0.1) 03/05/20 05:25 Absolute Nucleated RBC 0.00 x10^3/uL 03/05/20 05:25 Nucleated RBC % 0.0 /100WBC 03/05/20 05:25 PT 11.9 secs (9.9-12.6) 02/24/20 16:03 INR 1.0 (0.8-1.2) 02/24/20 16:03 Sodium 131 mmol/L (135-145) L 03/04/20 05:18 Potassium 3.8 mmol/L (3.5-5.0) 03/04/20 05:18 Chloride 98 mmol/L (101-111) L 03/04/20 05:18 Carbon Dioxide 26 mmol/L (21-32) 03/04/20 05:18 Anion Gap 7.0 (6-13) 03/04/20 05:18 BUN 15 mg/dL (6-20) 03/04/20 05:18 Creatinine 0.8 mg/dL (0.4-1.0) 03/04/20 05:18 Estimated GFR (MDRD) 75 (>89) L 03/04/20 05:18 Glucose 312 mg/dL (70-100) H 03/04/20 05:18 POC Whole Bld Glucose 209 mg/dL (70 - 100) H 03/08/20 11:04 Calcium 7.3 mg/dL (8.5-10.3) L 03/04/20 05:18 Phosphorus 3.0 mg/dL (2.5-4.6) 02/29/20 08:07 Magnesium 1.7 mg/dL (1.7-2.8) 03/03/20 04:40 Iron 78 ug/dL (28-170) 02/26/20 04:45 TIBC 132 ug/dL (250-450) L 02/26/20 04:45 % Saturation 59 % (20-50) H 02/26/20 04:45 Transferrin 94 mg/dL (192-382) L 02/26/20 04:45 Total Bilirubin 0.7 mg/dL (0.2-1.0) 02/24/20 16:03 AST 32 IU/L (10-42) 02/24/20 16:03 ALT 36 IU/L (10-60) 02/24/20 16:03 Alkaline Phosphatase 627 IU/L (42-121) H 02/24/20 16:03 Total Protein 6.3 g/dL (6.7-8.2) L 02/24/20 16:03 Albumin 1.8 g/dL (3.2-5.5) L 02/24/20 16:03 Globulin 4.5 g/dL (2.1-4.2) H 02/24/20 16:03 Albumin/Globulin Ratio 0.4 (1.0-2.2) L 02/24/20 16:03 Vitamin B12 3526 pg/mL (180-914) H 02/26/20 04:45 Folate 9.14 ng/mL (5.90 - >24.8) 02/26/20 04:45 Urine Color YELLOW 03/03/20 07:52 Urine Clarity CLEAR (CLEAR) 03/03/20 07:52 Urine pH 6.0 PH (5.0-7.5) 03/03/20 07:52 Ur Specific [place] 1.010 (1.002-1.030) 03/03/20 07:52 Urine Protein NEGATIVE mg/dL (NEGATIVE) 03/03/20 07:52 Urine Glucose (UA) NEGATIVE mg/dL (NEGATIVE) 03/03/20 07:52 Urine Ketones NEGATIVE mg/dL (NEGATIVE) 03/03/20 07:52 Urine Occult Blood MODERATE (NEGATIVE) H 03/03/20 07:52 Urine Nitrite NEGATIVE (NEGATIVE) 03/03/20 07:52 Urine Bilirubin NEGATIVE (NEGATIVE) 03/03/20 07:52 Urine Urobilinogen 0.2 (NORMAL) E.U./dL (NORMAL) 03/03/20 07:52 Ur Leukocyte Esterase NEGATIVE (NEGATIVE) 03/03/20 07:52 Urine RBC 6-10 /HPF (0-5) H 03/03/20 07:52 Urine WBC 0-3 /HPF (0-5) 03/03/20 07:52 Ur Squamous Epith Cells FEW Squamous (<= Few) 03/03/20 07:52 Urine Crystals 0-2 Calcium Oxalate /LPF 03/03/20 07:52 Urine Bacteria Rare /HPF (None Seen) 03/03/20 07:52 Urine Culture Comments NOT INDICATED 03/03/20 07:52 Stl Occult Blood (IFOB) NEGATIVE (NEGATIVE) 03/01/20 06:55 Coronavirus (PCR) NEGATIVE 02/21/20 14:40 Ref Lab Test Result REPORT 02/27/20 12:35 Blood Type O POSITIVE 02/29/20 09:20 Antibody Screen NEGATIVE 02/29/20 09:20 Crossmatch IS Only See Detail 02/29/20 09:20 - Procedures Procedures: Procedures INSERTION OF INFUSION DEV INTO SUP VENA CAVA, PERC APPROACH (08/12/18) ABX Reporting Has patient been on IV antibiotics over the past 48 hours?: No Current Medications - Current Medications Current Medications: Active Medications Acetaminophen (Tylenol) 650 - 975 mg PO Q4HR PRN PRN Reason: PAIN Last Admin: 03/04/20 02:24 Dose: 650 mg Documented by: Albuterol () 2.5 mg INH RTQ4H PRN PRN Reason: Wheezing Allopurinol (Zyloprim) 100 mg PO DAILY [facility] Last Admin: 03/08/20 08:18 Dose: 100 mg Documented by: Aspirin (Margot) 325 mg PO BIDWM [facility] Last Admin: 03/08/20 08:19 Dose: 325 mg Documented by: Calcium Carbonate/Glycine (Tums) 500 mg PO BID [facility] Last Admin: 03/08/20 08:21 Dose: 500 mg Documented by: Cholecalciferol (Vitamin D3) 50 mcg PO DAILY [facility] Last Admin: 03/08/20 08:18 Dose: 50 mcg Documented by: Dicyclomine HCl (Bentyl) 10 mg PO QID [facility] Last Admin: 03/08/20 08:16 Dose: 10 mg Documented by: Famotidine (Pepcid) 20 mg PO DAILY [facility] Last Admin: 03/08/20 08:16 Dose: 20 mg Documented by: Ferrous Gluconate (Fergon) 324 mg PO DAILYWM [facility] Last Admin: 03/08/20 08:14 Dose: 324 mg Documented by: Gabapentin (Neurontin) 600 mg PO TID [facility] Last Admin: 03/08/20 05:40 Dose: 600 mg Documented by: Insulin Aspart (Novolog) 2 - 10 unit SUBQ 0800,1200,1700,2100 [facility]; Protocol Last Admin: 03/08/20 08:15 Dose: 2 unit Documented by: Insulin Glargine (Lantus Solostar) 10 unit SUBQ QDBREAKFAST [facility] Last Admin: 03/08/20 08:15 Dose: 10 unit Documented by: Lorazepam (Ativan) 0.5 mg PO Q3H PRN PRN Reason: Anxiety Last Admin: 03/08/20 08:24 Dose: 0.5 mg Documented by: Magnesium Oxide (Mag Ox) 800 mg PO DAILYWM [facility] Last Admin: 03/08/20 08:14 Dose: 800 mg Documented by: Methadone HCl () 5 mg PO BID [facility] Last Admin: 03/08/20 08:17 Dose: 5 mg Documented by: Metoprolol Tartrate (Lopressor) 25 mg PO BID [facility] Last Admin: 03/08/20 08:19 Dose: 25 mg Documented by: Mineral Oil (Cavilon) 1 applic TOP PRN PRN PRN Reason: Skin Care Last Admin: 03/07/20 17:12 Dose: 1 applic Documented by: Multi-Ingredient Mouthwash/Gargle () 30 ml PO Q4H PRN PRN Reason: Abdominal Pain Last Admin: 03/08/20 08:18 Dose: 30 ml Documented by: Multivitamins/Minerals (Theragran M) 1 tab PO DAILYWM [facility] Last Admin: 03/08/20 08:17 Dose: 1 tab Documented by: Nicotine (Nicoderm) 1 patch TOP DAILY [facility] Last Admin: 03/08/20 08:20 Dose: 1 patch Documented by: Ondansetron HCl (Zofran Odt) 4 mg TL Q4HR PRN PRN Reason: Nausea / Vomiting Last Admin: 03/02/20 00:21 Dose: 4 mg Documented by: Oxycodone HCl (Roxicodone) 15 mg PO Q6HR PRN PRN Reason: PAIN Last Admin: 03/08/20 08:16 Dose: 15 mg Documented by: Pantoprazole Sodium (Protonix) 40 mg PO QDAC [facility] Last Admin: 03/08/20 05:40 Dose: 40 mg Documented by: Prochlorperazine Edisylate (Compazine Inj) 10 mg IVP Q6HR PRN PRN Reason: Nausea / Vomiting Last Admin: 03/07/20 16:17 Dose: 10 mg Documented by: Senna (Senokot) 8.6 mg PO BID PRN PRN Reason: Constipation Sodium Chloride (Normal Saline Flush 0.9%) 10 ml IVP 0100,0900,1700 [facility] Last Admin: 03/08/20 08:20 Dose: 10 ml Documented by: Sodium Chloride (Normal Saline Flush 0.9%) 10 ml IVP PRN PRN PRN Reason: NEEDED PER PROVIDER ORDERS Last Admin: 03/03/20 12:22 Dose: 10 ml Documented by: Omeprazole 40 mg PO DAILY 08/12/18 Gabapentin 600 mg PO TID 10/28/19 allopurinoL [Allopurinol] 100 mg PO DAILY 10/28/19 Insulin Aspart [NovoLOG] 4 unit SQ TIDWM 02/09/20 Haloperidol Oral Soln [Haldol Oral Soln] 0.5 - 20 mg PO Q2H PRN 02/24/20 Insulin Glargine [Lantus Solostar] 5 unit SUBQ BID 02/24/20 LORazepam [Ativan] 0.5 - 2 mg PO Q2H PRN 02/24/20 Methadone 5 mg PO BID 02/24/20 Morphine Sulfate [Morphine Sulf Oral (Roxanol)] 5 mg PO Q1H PRN 02/24/20 Ondansetron [Ondansetron Odt] 4 mg PO Q8H PRN 02/24/20 Sennosides [Senna] 8.6 mg PO BID PRN 02/24/20 oxyCODONE [Roxicodone] 5 mg PO Q4H PRN 02/24/20
[2020-03-09] MEDS: SODIUM CHLORIDE FLUSH 0.9% 10 ML SYRINGE IVP SCH ×3 (00:21→16:31)
[2020-03-09] MEDS: oxyCODONE 5 MG TABLET PO PRN ×3 (01:57→21:29)
[2020-03-09] MEDS: PANTOPRAZOLE 40 MG TABLET PO SCH (05:32)
[2020-03-09] MEDS: GABAPENTIN 300 MG CAPSULE PO SCH ×3 (05:32→21:30)
[2020-03-09] MEDS: LORazepam 0.5 MG TABLET PO PRN (09:29)
[2020-03-09] MEDS: MULTIVITAMIN W/MINERALS TABLET PO SCH (09:29)
[2020-03-09] MEDS: allopurinoL 100 MG TABLET PO SCH (09:30)
[2020-03-09] MEDS: CHOLECALCIFEROL 25 MCG TABLET PO SCH (09:30)
[2020-03-09] MEDS: DICYCLOMINE 10 MG CAPSULE PO SCH ×4 (09:30→21:30)
[2020-03-09] MEDS: MAGNESIUM OXIDE 400 MG TABLET PO SCH (09:30)
[2020-03-09] MEDS: FERROUS GLUCONATE 324 MG TABLET PO SCH (09:31)
[2020-03-09] MEDS: METOPROLOL TARTRATE 25 MG TABLET PO SCH ×2 (09:31→21:30)
[2020-03-09] MEDS: METHADONE 5 MG TABLET PO SCH ×2 (09:31→21:30)
[2020-03-09] MEDS: FAMOTIDINE 20 MG TABLET PO SCH (09:32)
[2020-03-09] MEDS: ASPIRIN 325 MG TABLET PO SCH ×2 (09:32→16:30)
[2020-03-09] MEDS: INSULIN GLARGINE 300 UNIT/3 ML PEN SUBQ SCH (09:33)
[2020-03-09] MEDS: CALCIUM CARBONATE CHEW 500 MG TABLET PO SCH ×2 (09:33→21:30)
[2020-03-09] MEDS: NICOTINE 14 MG PATCH TOP SCH (09:34)
[2020-03-09] MEDS: INSULIN ASPART 300 UNIT/3 ML PEN SUBQ SCH ×4 (09:34→21:39)
[2020-03-09] MEDS ORDERED: HYDROmorphone 0.5 MG/0.5 ML SYRINGE IVP SCH (10:00)
--- NOTE | 2020-03-09 13:32 | PROVIDER PROGRESS NOTE ---
Assessment/Plan - Problem List (1) Closed left hip fracture Assessment/Plan: 03/09, Patient complains of generalized pain, and asked one-time dilaudid. Continue physical therapist and occupational therapist, continue pain control, continue aspirin for DVT prophylaxis. 03/08 Physical therapist/occupational therapist report patient did very great job on today, cooperative with physical therapist as well. Patient's dress on the surgery site is clean, no drainage, skin is intact, no swelling, no erythema, no infection. Distal neuroVascular is intact, patient walked with physical therapist on today. She is comfort sleeping. today is day 7 after s/p ORIF surgery, continue current pain management, and DVT prophylaxis. pt is medical stable for d/c, public health social worker was consulted for placement (2) Postoperative anemia Impression: stable, no complaints, and hold of CBC check now. (3) Type 2 diabetes mellitus treated with insulin Impression: 99,Glucose is under control, We will continue Lantus and sliding scale good control of glucose level, continue Lantus to 10 units in the morning and slide scale (4) Chronic pain Impression: pt seems comfort now, Continue with current pain regimen. (5) Fall during current hospitalization Impression: This was the cause of her left hip fracture. continue Fall precautions. (6) Alcoholic cirrhosis of liver Impression: stable, Secondary to alcohol use. (7) Homeless Impression: This has made disposition difficult. consult with public health social worker - Current Meds Current Meds: Current Medications Generic Name Dose Route Start Last Admin Trade Name Freq PRN Reason Stop Dose Admin Acetaminophen 650 - 975 mg 02/29/20 13:22 03/04/20 02:24 Tylenol PO 650 mg Q4HR PRN Administration PAIN Allopurinol 100 mg 02/25/20 09:00 03/09/20 09:30 Zyloprim PO 100 mg DAILY [facility] Administration Aspirin 325 mg 02/29/20 17:00 03/09/20 09:32 Margot PO 325 mg BIDWM [facility] Administration Calcium Carbonate/Glycine 500 mg 03/02/20 21:00 03/09/20 09:33 Tums PO 500 mg BID [facility] Administration Cholecalciferol 50 mcg 03/03/20 09:00 03/09/20 09:30 Vitamin D3 PO 50 mcg DAILY [facility] Administration Dicyclomine HCl 10 mg 03/04/20 21:20 03/09/20 09:30 Bentyl PO 10 mg QID [facility] Administration Famotidine 20 mg 02/25/20 09:10 03/09/20 09:32 Pepcid PO 20 mg DAILY [facility] Administration Ferrous Gluconate 324 mg 02/26/20 12:00 03/09/20 09:31 Fergon PO 324 mg DAILYWM [facility] Administration Gabapentin 600 mg 02/24/20 22:00 03/09/20 05:32 Neurontin PO 600 mg TID [facility] Administration Insulin Aspart 2 - 10 unit 03/04/20 12:00 03/09/20 11:12 Novolog SUBQ 6 unit 0800,1200,1700,2100 [facility] Administration Protocol Insulin Glargine 10 unit 03/07/20 08:00 03/09/20 09:33 Lantus Solostar SUBQ 10 unit QDBREAKFAST [facility] Administration Lorazepam 0.5 mg 02/25/20 17:09 03/09/20 09:29 Ativan PO 0.5 mg Q3H PRN Administration Anxiety Magnesium Oxide 800 mg 03/01/20 08:00 03/09/20 09:30 Mag Ox PO 800 mg DAILYWM [facility] Administration Methadone HCl 5 mg 02/24/20 21:00 03/09/20 09:31 PO 5 mg BID [facility] Administration Metoprolol Tartrate 25 mg 03/02/20 23:00 03/09/20 09:31 Lopressor PO 25 mg BID [facility] Administration Mineral Oil 1 applic 02/24/20 17:34 03/07/20 17:12 Cavilon TOP 1 applic PRN PRN Administration Skin Care Multi-Ingredient Mouthwash/Gargle 30 ml 03/02/20 16:17 03/08/20 20:20 PO 30 ml Q4H PRN Administration Abdominal Pain Multivitamins/Minerals 1 tab 02/25/20 09:00 03/09/20 09:29 Theragran M PO 1 tab DAILYWM [facility] Administration Nicotine 1 patch 02/24/20 17:00 03/09/20 09:34 Nicoderm TOP 1 patch DAILY [facility] Administration Ondansetron HCl 4 mg 02/25/20 00:57 03/02/20 00:21 Zofran Odt TL 4 mg Q4HR PRN Administration Nausea / Vomiting Oxycodone HCl 15 mg 03/05/20 10:49 03/09/20 01:57 Roxicodone PO 15 mg Q6HR PRN Administration PAIN Pantoprazole Sodium 40 mg 03/07/20 17:00 03/09/20 05:32 Protonix PO 40 mg QDAC [facility] Administration Prochlorperazine Edisylate 10 mg 02/29/20 13:22 03/07/20 16:17 Compazine Inj IVP 10 mg Q6HR PRN Administration Nausea / Vomiting Sodium Chloride 10 ml 02/29/20 17:00 03/09/20 11:12 Normal Saline Flush 0.9% IVP 10 ml 0100,0900,1700 [facility] Administration Sodium Chloride 10 ml 02/29/20 13:22 03/03/20 12:22 Normal Saline Flush 0.9% IVP 10 ml PRN PRN Administration NEEDED PER PROVIDER ORDERS - Lab Result Fish Bone Diagrams: 03/05/20 05:25 03/04/20 05:18 Subjective - Subjective Patient Reports: Feeling Better Objective Vital Signs: Vital Signs - 24 hr 03/08/20 03/08/20 03/08/20 15:52 20:12 21:33 Temperature 36.7 C 36.9 C Heart Rate [ 73 77 Brachial] Respiratory 24 20 Rate Blood Pressure 124/71 Blood Pressure 133/73 H 119/77 [Right Brachial artery] O2 Saturation 100 97 03/09/20 03/09/20 03/09/20 00:33 05:00 07:40 Temperature 36.8 C 36.8 C 36.6 C Heart Rate [ 74 69 70 Brachial] Respiratory 16 16 16 Rate Blood Pressure Blood Pressure 126/76 127/78 133/78 H [Right Brachial artery] O2 Saturation 96 99 94 03/09/20 11:25 Temperature 36.7 C Heart Rate [ 74 Brachial] Respiratory 16 Rate Blood Pressure Blood Pressure 116/78 [Right Brachial artery] O2 Saturation 98 Oxygen O2 Source Room air I&O (Last 24 Hrs): Intake and Output Totals x24h 03/07/20 03/08/20 03/09/20 23:59 23:59 23:59 Intake Total 2640 2020 2700 Output Total 1100 950 300 Balance 1540 1070 2400 General: Alert, Oriented x3, No acute distress HEENT: Atraumatic Neck: Supple Lymphatic: no adenopathy Neuro: Alert, Non Focal, Oriented Times 3 Cardiovascular: Regular rate, Normal S1, Normal S2 Respiratory: Chest non-tender, No respiratory distress Abdomen: Normal bowel sounds, Soft, No tenderness Extremities: Normal pulses - Results Results: Laboratory Results WBC 8.1 x10^3/uL (4.8-10.8) 03/05/20 05:25 RBC 2.77 10^6/uL (4.20-5.40) L 03/05/20 05:25 Hgb 8.7 g/dL (12.0-16.0) L 03/05/20 05:25 Hct 26.5 % (37.0-47.0) L 03/05/20 05:25 MCV 95.7 fL (81.0-99.0) 03/05/20 05:25 MCH 31.4 pg (27.0-31.0) H 03/05/20 05:25 MCHC 32.8 g/dL (32.0-36.0) 03/05/20 05:25 RDW 15.7 % (12.0-15.0) H 03/05/20 05:25 Plt Count 468 10^3/uL (130-450) H 03/05/20 05:25 MPV 10.0 fL (7.9-10.8) 03/05/20 05:25 Neut # (Auto) 5.0 10^3/uL (1.5-6.6) 03/05/20 05:25 Lymph # (Auto) 2.2 10^3/uL (1.5-3.5) 03/05/20 05:25 Brule # (Auto) 0.7 10^3/uL (0.0-1.0) 03/05/20 05:25 Eos # (Auto) 0.1 10^3/uL (0.0-0.7) 03/05/20 05:25 Baso # (Auto) 0.1 10^3/uL (0.0-0.1) 03/05/20 05:25 Absolute Nucleated RBC 0.00 x10^3/uL 03/05/20 05:25 Nucleated RBC % 0.0 /100WBC 03/05/20 05:25 PT 11.9 secs (9.9-12.6) 02/24/20 16:03 INR 1.0 (0.8-1.2) 02/24/20 16:03 Sodium 131 mmol/L (135-145) L 03/04/20 05:18 Potassium 3.8 mmol/L (3.5-5.0) 03/04/20 05:18 Chloride 98 mmol/L (101-111) L 03/04/20 05:18 Carbon Dioxide 26 mmol/L (21-32) 03/04/20 05:18 Anion Gap 7.0 (6-13) 03/04/20 05:18 BUN 15 mg/dL (6-20) 03/04/20 05:18 Creatinine 0.8 mg/dL (0.4-1.0) 03/04/20 05:18 Estimated GFR (MDRD) 75 (>89) L 03/04/20 05:18 Glucose 312 mg/dL (70-100) H 03/04/20 05:18 POC Whole Bld Glucose 247 mg/dL (70 - 100) H 03/09/20 11:02 Calcium 7.3 mg/dL (8.5-10.3) L 03/04/20 05:18 Phosphorus 3.0 mg/dL (2.5-4.6) 02/29/20 08:07 Magnesium 1.7 mg/dL (1.7-2.8) 03/03/20 04:40 Iron 78 ug/dL (28-170) 02/26/20 04:45 TIBC 132 ug/dL (250-450) L 02/26/20 04:45 % Saturation 59 % (20-50) H 02/26/20 04:45 Transferrin 94 mg/dL (192-382) L 02/26/20 04:45 Total Bilirubin 0.7 mg/dL (0.2-1.0) 02/24/20 16:03 AST 32 IU/L (10-42) 02/24/20 16:03 ALT 36 IU/L (10-60) 02/24/20 16:03 Alkaline Phosphatase 627 IU/L (42-121) H 02/24/20 16:03 Total Protein 6.3 g/dL (6.7-8.2) L 02/24/20 16:03 Albumin 1.8 g/dL (3.2-5.5) L 02/24/20 16:03 Globulin 4.5 g/dL (2.1-4.2) H 02/24/20 16:03 Albumin/Globulin Ratio 0.4 (1.0-2.2) L 02/24/20 16:03 Vitamin B12 3526 pg/mL (180-914) H 02/26/20 04:45 Folate 9.14 ng/mL (5.90 - >24.8) 02/26/20 04:45 Urine Color YELLOW 03/03/20 07:52 Urine Clarity CLEAR (CLEAR) 03/03/20 07:52 Urine pH 6.0 PH (5.0-7.5) 03/03/20 07:52 Ur Specific Orange 1.010 (1.002-1.030) 03/03/20 07:52 Urine Protein NEGATIVE mg/dL (NEGATIVE) 03/03/20 07:52 Urine Glucose (UA) NEGATIVE mg/dL (NEGATIVE) 03/03/20 07:52 Urine Ketones NEGATIVE mg/dL (NEGATIVE) 03/03/20 07:52 Urine Occult Blood MODERATE (NEGATIVE) H 03/03/20 07:52 Urine Nitrite NEGATIVE (NEGATIVE) 03/03/20 07:52 Urine Bilirubin NEGATIVE (NEGATIVE) 03/03/20 07:52 Urine Urobilinogen 0.2 (NORMAL) E.U./dL (NORMAL) 03/03/20 07:52 Ur Leukocyte Esterase NEGATIVE (NEGATIVE) 03/03/20 07:52 Urine RBC 6-10 /HPF (0-5) H 03/03/20 07:52 Urine WBC 0-3 /HPF (0-5) 03/03/20 07:52 Ur Squamous Epith Cells FEW Squamous (<= Few) 03/03/20 07:52 Urine Crystals 0-2 Calcium Oxalate /LPF 03/03/20 07:52 Urine Bacteria Rare /HPF (None Seen) 03/03/20 07:52 Urine Culture Comments NOT INDICATED 03/03/20 07:52 Stl Occult Blood (IFOB) NEGATIVE (NEGATIVE) 03/01/20 06:55 Coronavirus (PCR) NEGATIVE 02/21/20 14:40 Ref Lab Test Result REPORT 02/27/20 12:35 Blood Type O POSITIVE 02/29/20 09:20 Antibody Screen NEGATIVE 02/29/20 09:20 Crossmatch IS Only See Detail 02/29/20 09:20 - Procedures Procedures: Procedures INSERTION OF INFUSION DEV INTO SUP VENA CAVA, PERC APPROACH (08/12/18) ABX Reporting Has patient been on IV antibiotics over the past 48 hours?: No Current Medications - Current Medications Current Medications: Active Medications Acetaminophen (Tylenol) 650 - 975 mg PO Q4HR PRN PRN Reason: PAIN Last Admin: 03/04/20 02:24 Dose: 650 mg Documented by: Albuterol () 2.5 mg INH RTQ4H PRN PRN Reason: Wheezing Allopurinol (Zyloprim) 100 mg PO DAILY [facility] Last Admin: 03/09/20 09:30 Dose: 100 mg Documented by: Aspirin (Margot) 325 mg PO BIDWM [facility] Last Admin: 03/09/20 09:32 Dose: 325 mg Documented by: Calcium Carbonate/Glycine (Tums) 500 mg PO BID [facility] Last Admin: 03/09/20 09:33 Dose: 500 mg Documented by: Cholecalciferol (Vitamin D3) 50 mcg PO DAILY [facility] Last Admin: 03/09/20 09:30 Dose: 50 mcg Documented by: Dicyclomine HCl (Bentyl) 10 mg PO QID [facility] Last Admin: 03/09/20 09:30 Dose: 10 mg Documented by: Famotidine (Pepcid) 20 mg PO DAILY [facility] Last Admin: 03/09/20 09:32 Dose: 20 mg Documented by: Ferrous Gluconate (Fergon) 324 mg PO DAILYWM [facility] Last Admin: 03/09/20 09:31 Dose: 324 mg Documented by: Gabapentin (Neurontin) 600 mg PO TID [facility] Last Admin: 03/09/20 05:32 Dose: 600 mg Documented by: Insulin Aspart (Novolog) 2 - 10 unit SUBQ 0800,1200,1700,2100 [facility]; Protocol Last Admin: 03/09/20 11:12 Dose: 6 unit Documented by: Insulin Glargine (Lantus Solostar) 10 unit SUBQ QDBREAKFAST [facility] Last Admin: 03/09/20 09:33 Dose: 10 unit Documented by: Lorazepam (Ativan) 0.5 mg PO Q3H PRN PRN Reason: Anxiety Last Admin: 03/09/20 09:29 Dose: 0.5 mg Documented by: Magnesium Oxide (Mag Ox) 800 mg PO DAILYWM [facility] Last Admin: 03/09/20 09:30 Dose: 800 mg Documented by: Methadone HCl () 5 mg PO BID [facility] Last Admin: 03/09/20 09:31 Dose: 5 mg Documented by: Metoprolol Tartrate (Lopressor) 25 mg PO BID [facility] Last Admin: 03/09/20 09:31 Dose: 25 mg Documented by: Mineral Oil (Cavilon) 1 applic TOP PRN PRN PRN Reason: Skin Care Last Admin: 03/07/20 17:12 Dose: 1 applic Documented by: Multi-Ingredient Mouthwash/Gargle () 30 ml PO Q4H PRN PRN Reason: Abdominal Pain Last Admin: 03/08/20 20:20 Dose: 30 ml Documented by: Multivitamins/Minerals (Theragran M) 1 tab PO DAILYWM [facility] Last Admin: 03/09/20 09:29 Dose: 1 tab Documented by: Nicotine (Nicoderm) 1 patch TOP DAILY [facility] Last Admin: 03/09/20 09:34 Dose: 1 patch Documented by: Ondansetron HCl (Zofran Odt) 4 mg TL Q4HR PRN PRN Reason: Nausea / Vomiting Last Admin: 03/02/20 00:21 Dose: 4 mg Documented by: Oxycodone HCl (Roxicodone) 15 mg PO Q6HR PRN PRN Reason: PAIN Last Admin: 03/09/20 01:57 Dose: 15 mg Documented by: Pantoprazole Sodium (Protonix) 40 mg PO QDAC [facility] Last Admin: 03/09/20 05:32 Dose: 40 mg Documented by: Prochlorperazine Edisylate (Compazine Inj) 10 mg IVP Q6HR PRN PRN Reason: Nausea / Vomiting Last Admin: 03/07/20 16:17 Dose: 10 mg Documented by: Senna (Senokot) 8.6 mg PO BID PRN PRN Reason: Constipation Sodium Chloride (Normal Saline Flush 0.9%) 10 ml IVP 0100,0900,1700 [facility] Last Admin: 03/09/20 11:12 Dose: 10 ml Documented by: Sodium Chloride (Normal Saline Flush 0.9%) 10 ml IVP PRN PRN PRN Reason: NEEDED PER PROVIDER ORDERS Last Admin: 03/03/20 12:22 Dose: 10 ml Documented by: Omeprazole 40 mg PO DAILY 08/12/18 Gabapentin 600 mg PO TID 10/28/19 allopurinoL [Allopurinol] 100 mg PO DAILY 10/28/19 Insulin Aspart [NovoLOG] 4 unit SQ TIDWM 02/09/20 Haloperidol Oral Soln [Haldol Oral Soln] 0.5 - 20 mg PO Q2H PRN 02/24/20 Insulin Glargine [Lantus Solostar] 5 unit SUBQ BID 02/24/20 LORazepam [Ativan] 0.5 - 2 mg PO Q2H PRN 02/24/20 Methadone 5 mg PO BID 02/24/20 Morphine Sulfate [Morphine Sulf Oral (Roxanol)] 5 mg PO Q1H PRN 02/24/20 Ondansetron [Ondansetron Odt] 4 mg PO Q8H PRN 02/24/20 Sennosides [Senna] 8.6 mg PO BID PRN 02/24/20 oxyCODONE [Roxicodone] 5 mg PO Q4H PRN 02/24/20
[2020-03-09] MEDS: GI COCKTAIL 120 ML BOTTLE PO PRN (16:30)
[2020-03-10] MEDS: SODIUM CHLORIDE FLUSH 0.9% 10 ML SYRINGE IVP SCH ×3 (00:30→17:08)
[2020-03-10] MEDS: oxyCODONE 5 MG TABLET PO PRN ×4 (03:31→22:23)
[2020-03-10] MEDS: GABAPENTIN 300 MG CAPSULE PO SCH ×3 (05:48→21:24)
[2020-03-10] MEDS: PANTOPRAZOLE 40 MG TABLET PO SCH (05:49)
--- NOTE | 2020-03-10 08:09 | PROVIDER PROGRESS NOTE ---
Subjective - General Admit Date: 02/28/20 Procedure Date: 02/29/20 Post Op Days: 10 - Review of Systems Wound/Incisions: positive: Healing well, Dressing dry and intact General: positive: No symptoms Musculoskeletal: positive: Other (progressing well with physical therapy, Some pain flexion of left hip) Objective - Patient Data Vital Signs: Vital Signs x48h Temp Pulse Resp BP Pulse Ox 03/10/20 05:49 36.5 C 73 16 138/81 H 98 03/10/20 00:37 36.7 C 75 20 124/67 93 Weight: Weight 03/08/20 03/09/20 03/10/20 23:59 23:59 23:59 Weight (kg) 53 kg 58.4 kg 51 kg Intake & Output: Intake and Output Totals x24h 03/08/20 03/09/20 03/10/20 23:59 23:59 23:59 Intake Total 2020 3080 250 Output Total 950 300 600 Balance 1070 2780 -350 - Lab Results Lab Results: 03/05/20 05:25 03/04/20 05:18 Other Lab Results: Lab Results x24hrs 03/10/20 03/09/20 03/09/20 Range/Units 07:50 21:17 16:48 POC Whole Bld Glucose 174 H 238 H 226 H (70 - 100) mg/dL 03/09/20 Range/Units 11:02 POC Whole Bld Glucose 247 H (70 - 100) mg/dL - Current Medications Current Medications: Current Medications Generic Name Dose Route Start Last Admin Trade Name Freq PRN Reason Stop Dose Admin Acetaminophen 650 - 975 mg 02/29/20 13:22 03/04/20 02:24 Tylenol PO 650 mg Q4HR PRN Administration PAIN Allopurinol 100 mg 02/25/20 09:00 03/09/20 09:30 Zyloprim PO 100 mg DAILY [facility] Administration Aspirin 325 mg 02/29/20 17:00 03/09/20 16:30 Margot PO 325 mg BIDWM [facility] Administration Calcium Carbonate/Glycine 500 mg 03/02/20 21:00 03/09/20 21:30 Tums PO 500 mg BID [facility] Administration Cholecalciferol 50 mcg 03/03/20 09:00 03/09/20 09:30 Vitamin D3 PO 50 mcg DAILY [facility] Administration Dicyclomine HCl 10 mg 03/04/20 21:20 03/09/20 21:30 Bentyl PO 10 mg QID [facility] Administration Famotidine 20 mg 02/25/20 09:10 03/09/20 09:32 Pepcid PO 20 mg DAILY [facility] Administration Ferrous Gluconate 324 mg 02/26/20 12:00 03/09/20 09:31 Fergon PO 324 mg DAILYWM [facility] Administration Gabapentin 600 mg 02/24/20 22:00 03/10/20 05:48 Neurontin PO 600 mg TID [facility] Administration Insulin Aspart 2 - 10 unit 03/04/20 12:00 03/09/20 21:39 Novolog SUBQ 6 unit 0800,1200,1700,2100 [facility] Administration Protocol Insulin Glargine 10 unit 03/07/20 08:00 03/09/20 09:33 Lantus Solostar SUBQ 10 unit QDBREAKFAST [facility] Administration Lorazepam 0.5 mg 02/25/20 17:09 03/09/20 09:29 Ativan PO 0.5 mg Q3H PRN Administration Anxiety Magnesium Oxide 800 mg 03/01/20 08:00 03/09/20 09:30 Mag Ox PO 800 mg DAILYWM [facility] Administration Methadone HCl 5 mg 02/24/20 21:00 03/09/20 21:30 PO 5 mg BID [facility] Administration Metoprolol Tartrate 25 mg 03/02/20 23:00 03/09/20 21:30 Lopressor PO 25 mg BID [facility] Administration Mineral Oil 1 applic 02/24/20 17:34 03/07/20 17:12 Cavilon TOP 1 applic PRN PRN Administration Skin Care Multi-Ingredient Mouthwash/Gargle 30 ml 03/02/20 16:17 03/09/20 16:30 PO 30 ml Q4H PRN Administration Abdominal Pain Multivitamins/Minerals 1 tab 02/25/20 09:00 03/09/20 09:29 Theragran M PO 1 tab DAILYWM [facility] Administration Nicotine 1 patch 02/24/20 17:00 03/09/20 09:34 Nicoderm TOP 1 patch DAILY [facility] Administration Ondansetron HCl 4 mg 02/25/20 00:57 03/02/20 00:21 Zofran Odt TL 4 mg Q4HR PRN Administration Nausea / Vomiting Oxycodone HCl 15 mg 03/05/20 10:49 03/10/20 03:31 Roxicodone PO 15 mg Q6HR PRN Administration PAIN Pantoprazole Sodium 40 mg 03/07/20 17:00 03/10/20 05:49 Protonix PO 40 mg QDAC [facility] Administration Prochlorperazine Edisylate 10 mg 02/29/20 13:22 03/07/20 16:17 Compazine Inj IVP 10 mg Q6HR PRN Administration Nausea / Vomiting Sodium Chloride 10 ml 02/29/20 17:00 03/10/20 00:30 Normal Saline Flush 0.9% IVP 10 ml 0100,0900,1700 [facility] Administration Sodium Chloride 10 ml 02/29/20 13:22 03/03/20 12:22 Normal Saline Flush 0.9% IVP 10 ml PRN PRN Administration NEEDED PER PROVIDER ORDERS - Physical Exam Wound/Incisions: positive: Dressing dry and intact, No drainage Impression/Plan - Problem List Problem List: Patient is a 54-year-old female who is postop day 10 her ORIF injured trochanteric fracture of her left hip. Patient is still awaiting placement as she is homeless. Patient has been progressing well with her PT sessions some soreness afterwards. Patient is able to get up in bed walk to chair and walk to the bathroom. Patient is showing good progress. No updates On placement.Plan is to continue physical therapy discharge placement.
[2020-03-10] MEDS: GI COCKTAIL 120 ML BOTTLE PO PRN ×2 (09:21→13:34)
[2020-03-10] MEDS: CHOLECALCIFEROL 25 MCG TABLET PO SCH (09:22)
[2020-03-10] MEDS: ASPIRIN 325 MG TABLET PO SCH ×2 (09:23→17:05)
[2020-03-10] MEDS: allopurinoL 100 MG TABLET PO SCH (09:24)
[2020-03-10] MEDS: MULTIVITAMIN W/MINERALS TABLET PO SCH (09:24)
[2020-03-10] MEDS: MAGNESIUM OXIDE 400 MG TABLET PO SCH (09:24)
[2020-03-10] MEDS: FAMOTIDINE 20 MG TABLET PO SCH (09:24)
[2020-03-10] MEDS: METOPROLOL TARTRATE 25 MG TABLET PO SCH ×2 (09:25→21:23)
[2020-03-10] MEDS: DICYCLOMINE 10 MG CAPSULE PO SCH ×4 (09:26→21:23)
[2020-03-10] MEDS: FERROUS GLUCONATE 324 MG TABLET PO SCH (09:26)
[2020-03-10] MEDS: METHADONE 5 MG TABLET PO SCH ×2 (09:26→21:24)
[2020-03-10] MEDS: ACETAMINOPHEN 325 MG TABLET PO PRN ×2 (09:27→13:31)
[2020-03-10] MEDS: NICOTINE 14 MG PATCH TOP SCH (09:29)
[2020-03-10] MEDS: LORazepam 0.5 MG TABLET PO PRN (09:29)
[2020-03-10] MEDS: CALCIUM CARBONATE CHEW 500 MG TABLET PO SCH ×2 (09:31→21:23)
[2020-03-10] MEDS: INSULIN ASPART 300 UNIT/3 ML PEN SUBQ SCH ×4 (09:32→21:25)
[2020-03-10] MEDS: INSULIN GLARGINE 300 UNIT/3 ML PEN SUBQ SCH (09:33)
--- NOTE | 2020-03-10 11:00 | PROVIDER PROGRESS NOTE ---
Assessment/Plan - Problem List (1) Closed left hip fracture Assessment/Plan: 03/10, Patient Cooperated with physical therapist and occupational therapist well, Continue PT/OT, Pain control. Follow-up with orthopedic surgeon. 03/09, Patient complains of generalized pain, and asked one-time dilaudid. Contin ue physical therapist and occupational therapist, continue pain control, continue aspirin for DVT prophylaxis. 03/08 Physical therapist/occupational therapist report patient did very great job on today, cooperative with physical therapist as well. Patient's dress on the surgery site is clean, no drainage, skin is intact, no swelling, no erythema, no infection. Distal neuroVascular is intact, patient walked with physical therapist on today. She is comfort sleeping. today is day 7 after s/p ORIF surgery, continue current pain management, and DVT prophylaxis. pt is medical stable for d/c, social media marketer was consulted for placement (2) Postoperative anemia Impression: stable, no complaints, and hold of CBC check now. (3) Type 2 diabetes mellitus treated with insulin Impression: 911, increase Lantus to 12 units daily, Continue sliding-scale 99,Glucose is under control, We will continue Lantus and sliding scale good control of glucose level, continue Lantus to 10 units in the morning and slide scale (4) Chronic pain Impression: pt seems comfort now, Continue with current pain regimen. (5) Fall during current hospitalization Impression: This was the cause of her left hip fracture. continue Fall precautions. (6) Alcoholic cirrhosis of liver Impression: stable, Secondary to alcohol use. (7) Homeless Impression: This has made disposition difficult. consult with social media marketer - Current Meds Current Meds: Current Medications Generic Name Dose Route Start Last Admin Trade Name Freq PRN Reason Stop Dose Admin Acetaminophen 650 - 975 mg 02/29/20 13:22 03/10/20 09:27 Tylenol PO 650 mg Q4HR PRN Administration PAIN Allopurinol 100 mg 02/25/20 09:00 03/10/20 09:24 Zyloprim PO 100 mg DAILY [facility] Administration Aspirin 325 mg 02/29/20 17:00 03/10/20 09:23 Margot PO 325 mg BIDWM [facility] Administration Calcium Carbonate/Glycine 500 mg 03/02/20 21:00 03/10/20 09:31 Tums PO 500 mg BID [facility] Administration Cholecalciferol 50 mcg 03/03/20 09:00 03/10/20 09:22 Vitamin D3 PO 50 mcg DAILY [facility] Administration Dicyclomine HCl 10 mg 03/04/20 21:20 03/10/20 09:26 Bentyl PO 10 mg QID [facility] Administration Famotidine 20 mg 02/25/20 09:10 03/10/20 09:24 Pepcid PO 20 mg DAILY [facility] Administration Ferrous Gluconate 324 mg 02/26/20 12:00 03/10/20 09:26 Fergon PO 324 mg DAILYWM [facility] Administration Gabapentin 600 mg 02/24/20 22:00 03/10/20 05:48 Neurontin PO 600 mg TID [facility] Administration Insulin Aspart 2 - 10 unit 03/04/20 12:00 03/10/20 09:32 Novolog SUBQ 2 unit 0800,1200,1700,2100 [facility] Administration Protocol Lorazepam 0.5 mg 02/25/20 17:09 03/10/20 09:29 Ativan PO 0.5 mg Q3H PRN Administration Anxiety Magnesium Oxide 800 mg 03/01/20 08:00 03/10/20 09:24 Mag Ox PO 800 mg DAILYWM [facility] Administration Methadone HCl 5 mg 02/24/20 21:00 03/10/20 09:26 PO 5 mg BID [facility] Administration Metoprolol Tartrate 25 mg 03/02/20 23:00 03/10/20 09:25 Lopressor PO 25 mg BID [facility] Administration Mineral Oil 1 applic 02/24/20 17:34 03/07/20 17:12 Cavilon TOP 1 applic PRN PRN Administration Skin Care Multi-Ingredient Mouthwash/Gargle 30 ml 03/02/20 16:17 03/10/20 09:21 PO 30 ml Q4H PRN Administration Abdominal Pain Multivitamins/Minerals 1 tab 02/25/20 09:00 03/10/20 09:24 Theragran M PO 1 tab DAILYWM [facility] Administration Nicotine 1 patch 02/24/20 17:00 03/10/20 09:29 Nicoderm TOP 1 patch DAILY [facility] Administration Ondansetron HCl 4 mg 02/25/20 00:57 03/02/20 00:21 Zofran Odt TL 4 mg Q4HR PRN Administration Nausea / Vomiting Oxycodone HCl 15 mg 03/05/20 10:49 03/10/20 09:27 Roxicodone PO 15 mg Q6HR PRN Administration PAIN Pantoprazole Sodium 40 mg 03/07/20 17:00 03/10/20 05:49 Protonix PO 40 mg QDAC [facility] Administration Prochlorperazine Edisylate 10 mg 02/29/20 13:22 03/07/20 16:17 Compazine Inj IVP 10 mg Q6HR PRN Administration Nausea / Vomiting Sodium Chloride 10 ml 02/29/20 17:00 03/10/20 09:30 Normal Saline Flush 0.9% IVP 10 ml 0100,0900,1700 [facility] Administration Sodium Chloride 10 ml 02/29/20 13:22 03/03/20 12:22 Normal Saline Flush 0.9% IVP 10 ml PRN PRN Administration NEEDED PER PROVIDER ORDERS - Lab Result Fish Bone Diagrams: 03/05/20 05:25 03/04/20 05:18 - Additional Planning My Orders: My Active Orders 03/11/20 08:00 Insulin Glargine [Lantus Solostar] 12 unit SUBQ QDBREAKFAST Subjective - Subjective Patient Reports: Feeling Better Objective Vital Signs: Vital Signs - 24 hr 03/09/20 03/09/20 03/09/20 11:25 16:05 20:44 Temperature 36.7 C 36.6 C 36.7 C Heart Rate [ 74 74 77 Brachial] Respiratory 16 14 16 Rate Blood Pressure Blood Pressure 116/78 122/67 124/82 H [Right Brachial artery] O2 Saturation 98 97 100 03/09/20 03/10/20 03/10/20 21:30 00:37 05:49 Temperature 36.7 C 36.5 C Heart Rate [ 75 73 Brachial] Respiratory 20 16 Rate Blood Pressure 136/72 H Blood Pressure 124/67 138/81 H [Right Brachial artery] O2 Saturation 93 98 03/10/20 03/10/20 08:47 09:25 Temperature 36.7 C Heart Rate [ 73 Brachial] Respiratory 18 Rate Blood Pressure 118/77 Blood Pressure 118/77 [Right Brachial artery] O2 Saturation 93 Oxygen O2 Source Room air I&O (Last 24 Hrs): Intake and Output Totals x24h 03/08/20 03/09/20 03/10/20 23:59 23:59 23:59 Intake Total 2020 3080 610 Output Total 950 300 600 Balance 1070 2780 10 General: Alert, Oriented x3, No acute distress HEENT: Atraumatic Neck: Supple Lymphatic: no adenopathy Neuro: Alert, Non Focal, Oriented Times 3 Cardiovascular: Regular rate, Normal S1, Normal S2 Respiratory: Chest non-tender, No respiratory distress Abdomen: Normal bowel sounds, Soft Extremities: Normal pulses - Results Results: Laboratory Results WBC 8.1 x10^3/uL (4.8-10.8) 03/05/20 05:25 RBC 2.77 10^6/uL (4.20-5.40) L 03/05/20 05:25 Hgb 8.7 g/dL (12.0-16.0) L 03/05/20 05:25 Hct 26.5 % (37.0-47.0) L 03/05/20 05:25 MCV 95.7 fL (81.0-99.0) 03/05/20 05:25 MCH 31.4 pg (27.0-31.0) H 03/05/20 05:25 MCHC 32.8 g/dL (32.0-36.0) 03/05/20 05:25 RDW 15.7 % (12.0-15.0) H 03/05/20 05:25 Plt Count 468 10^3/uL (130-450) H 03/05/20 05:25 MPV 10.0 fL (7.9-10.8) 03/05/20 05:25 Neut # (Auto) 5.0 10^3/uL (1.5-6.6) 03/05/20 05:25 Lymph # (Auto) 2.2 10^3/uL (1.5-3.5) 03/05/20 05:25 [place] # (Auto) 0.7 10^3/uL (0.0-1.0) 03/05/20 05:25 Eos # (Auto) 0.1 10^3/uL (0.0-0.7) 03/05/20 05:25 Baso # (Auto) 0.1 10^3/uL (0.0-0.1) 03/05/20 05:25 Absolute Nucleated RBC 0.00 x10^3/uL 03/05/20 05:25 Nucleated RBC % 0.0 /100WBC 03/05/20 05:25 PT 11.9 secs (9.9-12.6) 02/24/20 16:03 INR 1.0 (0.8-1.2) 02/24/20 16:03 Sodium 131 mmol/L (135-145) L 03/04/20 05:18 Potassium 3.8 mmol/L (3.5-5.0) 03/04/20 05:18 Chloride 98 mmol/L (101-111) L 03/04/20 05:18 Carbon Dioxide 26 mmol/L (21-32) 03/04/20 05:18 Anion Gap 7.0 (6-13) 03/04/20 05:18 BUN 15 mg/dL (6-20) 03/04/20 05:18 Creatinine 0.8 mg/dL (0.4-1.0) 03/04/20 05:18 Estimated GFR (MDRD) 75 (>89) L 03/04/20 05:18 Glucose 312 mg/dL (70-100) H 03/04/20 05:18 POC Whole Bld Glucose 174 mg/dL (70 - 100) H 03/10/20 07:50 Calcium 7.3 mg/dL (8.5-10.3) L 03/04/20 05:18 Phosphorus 3.0 mg/dL (2.5-4.6) 02/29/20 08:07 Magnesium 1.7 mg/dL (1.7-2.8) 03/03/20 04:40 Iron 78 ug/dL (28-170) 02/26/20 04:45 TIBC 132 ug/dL (250-450) L 02/26/20 04:45 % Saturation 59 % (20-50) H 02/26/20 04:45 Transferrin 94 mg/dL (192-382) L 02/26/20 04:45 Total Bilirubin 0.7 mg/dL (0.2-1.0) 02/24/20 16:03 AST 32 IU/L (10-42) 02/24/20 16:03 ALT 36 IU/L (10-60) 02/24/20 16:03 Alkaline Phosphatase 627 IU/L (42-121) H 02/24/20 16:03 Total Protein 6.3 g/dL (6.7-8.2) L 02/24/20 16:03 Albumin 1.8 g/dL (3.2-5.5) L 02/24/20 16:03 Globulin 4.5 g/dL (2.1-4.2) H 02/24/20 16:03 Albumin/Globulin Ratio 0.4 (1.0-2.2) L 02/24/20 16:03 Vitamin B12 3526 pg/mL (180-914) H 02/26/20 04:45 Folate 9.14 ng/mL (5.90 - >24.8) 02/26/20 04:45 Urine Color YELLOW 03/03/20 07:52 Urine Clarity CLEAR (CLEAR) 03/03/20 07:52 Urine pH 6.0 PH (5.0-7.5) 03/03/20 07:52 Ur Specific [place] 1.010 (1.002-1.030) 03/03/20 07:52 Urine Protein NEGATIVE mg/dL (NEGATIVE) 03/03/20 07:52 Urine Glucose (UA) NEGATIVE mg/dL (NEGATIVE) 03/03/20 07:52 Urine Ketones NEGATIVE mg/dL (NEGATIVE) 03/03/20 07:52 Urine Occult Blood MODERATE (NEGATIVE) H 03/03/20 07:52 Urine Nitrite NEGATIVE (NEGATIVE) 03/03/20 07:52 Urine Bilirubin NEGATIVE (NEGATIVE) 03/03/20 07:52 Urine Urobilinogen 0.2 (NORMAL) E.U./dL (NORMAL) 03/03/20 07:52 Ur Leukocyte Esterase NEGATIVE (NEGATIVE) 03/03/20 07:52 Urine RBC 6-10 /HPF (0-5) H 03/03/20 07:52 Urine WBC 0-3 /HPF (0-5) 03/03/20 07:52 Ur Squamous Epith Cells FEW Squamous (<= Few) 03/03/20 07:52 Urine Crystals 0-2 Calcium Oxalate /LPF 03/03/20 07:52 Urine Bacteria Rare /HPF (None Seen) 03/03/20 07:52 Urine Culture Comments NOT INDICATED 03/03/20 07:52 Stl Occult Blood (IFOB) NEGATIVE (NEGATIVE) 03/01/20 06:55 Coronavirus (PCR) NEGATIVE 02/21/20 14:40 Ref Lab Test Result REPORT 02/27/20 12:35 Blood Type O POSITIVE 02/29/20 09:20 Antibody Screen NEGATIVE 02/29/20 09:20 Crossmatch IS Only See Detail 02/29/20 09:20 - Procedures Procedures: Procedures INSERTION OF INFUSION DEV INTO SUP VENA CAVA, PERC APPROACH (08/12/18) ABX Reporting Has patient been on IV antibiotics over the past 48 hours?: No Current Medications - Current Medications Current Medications: Active Medications Acetaminophen (Tylenol) 650 - 975 mg PO Q4HR PRN PRN Reason: PAIN Last Admin: 03/10/20 09:27 Dose: 650 mg Documented by: Albuterol () 2.5 mg INH RTQ4H PRN PRN Reason: Wheezing Allopurinol (Zyloprim) 100 mg PO DAILY [facility] Last Admin: 03/10/20 09:24 Dose: 100 mg Documented by: Aspirin (Margot) 325 mg PO BIDWM [facility] Last Admin: 03/10/20 09:23 Dose: 325 mg Documented by: Calcium Carbonate/Glycine (Tums) 500 mg PO BID [facility] Last Admin: 03/10/20 09:31 Dose: 500 mg Documented by: Cholecalciferol (Vitamin D3) 50 mcg PO DAILY [facility] Last Admin: 03/10/20 09:22 Dose: 50 mcg Documented by: Dicyclomine HCl (Bentyl) 10 mg PO QID [facility] Last Admin: 03/10/20 09:26 Dose: 10 mg Documented by: Famotidine (Pepcid) 20 mg PO DAILY [facility] Last Admin: 03/10/20 09:24 Dose: 20 mg Documented by: Ferrous Gluconate (Fergon) 324 mg PO DAILYWM [facility] Last Admin: 03/10/20 09:26 Dose: 324 mg Documented by: Gabapentin (Neurontin) 600 mg PO TID [facility] Last Admin: 03/10/20 05:48 Dose: 600 mg Documented by: Insulin Aspart (Novolog) 2 - 10 unit SUBQ 0800,1200,1700,2100 [facility]; Protocol Last Admin: 03/10/20 09:32 Dose: 2 unit Documented by: Insulin Glargine (Lantus Solostar) 12 unit SUBQ QDBREAKFAST [facility] Lorazepam (Ativan) 0.5 mg PO Q3H PRN PRN Reason: Anxiety Last Admin: 03/10/20 09:29 Dose: 0.5 mg Documented by: Magnesium Oxide (Mag Ox) 800 mg PO DAILYWM [facility] Last Admin: 03/10/20 09:24 Dose: 800 mg Documented by: Methadone HCl () 5 mg PO BID [facility] Last Admin: 03/10/20 09:26 Dose: 5 mg Documented by: Metoprolol Tartrate (Lopressor) 25 mg PO BID [facility] Last Admin: 03/10/20 09:25 Dose: 25 mg Documented by: Mineral Oil (Cavilon) 1 applic TOP PRN PRN PRN Reason: Skin Care Last Admin: 03/07/20 17:12 Dose: 1 applic Documented by: Multi-Ingredient Mouthwash/Gargle () 30 ml PO Q4H PRN PRN Reason: Abdominal Pain Last Admin: 03/10/20 09:21 Dose: 30 ml Documented by: Multivitamins/Minerals (Theragran M) 1 tab PO DAILYWM [facility] Last Admin: 03/10/20 09:24 Dose: 1 tab Documented by: Nicotine (Nicoderm) 1 patch TOP DAILY [facility] Last Admin: 03/10/20 09:29 Dose: 1 patch Documented by: Ondansetron HCl (Zofran Odt) 4 mg TL Q4HR PRN PRN Reason: Nausea / Vomiting Last Admin: 03/02/20 00:21 Dose: 4 mg Documented by: Oxycodone HCl (Roxicodone) 15 mg PO Q6HR PRN PRN Reason: PAIN Last Admin: 03/10/20 09:27 Dose: 15 mg Documented by: Pantoprazole Sodium (Protonix) 40 mg PO QDAC [facility] Last Admin: 03/10/20 05:49 Dose: 40 mg Documented by: Prochlorperazine Edisylate (Compazine Inj) 10 mg IVP Q6HR PRN PRN Reason: Nausea / Vomiting Last Admin: 03/07/20 16:17 Dose: 10 mg Documented by: Senna (Senokot) 8.6 mg PO BID PRN PRN Reason: Constipation Sodium Chloride (Normal Saline Flush 0.9%) 10 ml IVP 0100,0900,1700 [facility] Last Admin: 03/10/20 09:30 Dose: 10 ml Documented by: Sodium Chloride (Normal Saline Flush 0.9%) 10 ml IVP PRN PRN PRN Reason: NEEDED PER PROVIDER ORDERS Last Admin: 03/03/20 12:22 Dose: 10 ml Documented by: Omeprazole 40 mg PO DAILY 08/12/18 Gabapentin 600 mg PO TID 10/28/19 allopurinoL [Allopurinol] 100 mg PO DAILY 10/28/19 Insulin Aspart [NovoLOG] 4 unit SQ TIDWM 02/09/20 Haloperidol Oral Soln [Haldol Oral Soln] 0.5 - 20 mg PO Q2H PRN 02/24/20 Insulin Glargine [Lantus Solostar] 5 unit SUBQ BID 02/24/20 LORazepam [Ativan] 0.5 - 2 mg PO Q2H PRN 02/24/20 Methadone 5 mg PO BID 02/24/20 Morphine Sulfate [Morphine Sulf Oral (Roxanol)] 5 mg PO Q1H PRN 02/24/20 Ondansetron [Ondansetron Odt] 4 mg PO Q8H PRN 02/24/20 Sennosides [Senna] 8.6 mg PO BID PRN 02/24/20 oxyCODONE [Roxicodone] 5 mg PO Q4H PRN 02/24/20
[2020-03-11] MEDS: ACETAMINOPHEN 325 MG TABLET PO PRN (01:48)
[2020-03-11] MEDS: SODIUM CHLORIDE FLUSH 0.9% 10 ML SYRINGE IVP SCH ×4 (01:49→23:40)
[2020-03-11] MEDS: oxyCODONE 5 MG TABLET PO PRN ×4 (04:14→23:39)
[2020-03-11] MEDS: GABAPENTIN 300 MG CAPSULE PO SCH ×3 (06:11→21:15)
[2020-03-11] MEDS: PANTOPRAZOLE 40 MG TABLET PO SCH (06:12)
[2020-03-11] MEDS: FERROUS GLUCONATE 324 MG TABLET PO SCH (07:55)
[2020-03-11] MEDS: ASPIRIN 325 MG TABLET PO SCH ×2 (07:55→17:03)
--- NOTE | 2020-03-11 08:26 | PROVIDER PROGRESS NOTE ---
Assessment/Plan - Problem List (1) Closed left hip fracture Assessment/Plan: She is POD #11. Continue with very low and very intermittent doses of IV Demerol for pain control. Continue with PT, she is progressing nicely. 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 She wants to continue on this regular diet. We have had to adjust Insulin dosing therefore: increase Lantus to 12 units daily, Continue sliding-scale (4) Chronic pain Assessment/Plan: Pt seems comfort now, Continue with current pain regimen. (5) Fall during current hospitalization Qualifiers: Encounter type: subsequent encounter Qualified Code(s): W19.XXXD - Unspeci fied fall, subsequent encounter; Y92.239 - Unspecified place in hospital as the place of occurrence of the external cause Assessment/Plan: This was the cause of her left hip fracture. continue Fall precautions. (6) Alcoholic cirrhosis of liver Qualifiers: Ascites presence: unspecified Qualified Code(s): K70.30 - Alcoholic cirrhosis of liver without ascites Assessment/Plan: Stable, it is secondary to alcohol abuse hx. (7) At risk for unsafe behavior Assessment/Plan: The reason for this hospitalization was that she took an excessive amount of opiates and sedatives from the Hospice-ordered meds, as she was discharged to [facility] from [facility]. (8) Homeless Assessment/Plan: This has made disposition difficult. Continue with social workers working on placement - Current Meds Current Meds: Current Medications Generic Name Dose Route Start Last Admin Trade Name Freq PRN Reason Stop Dose Admin Acetaminophen 650 - 975 mg 02/29/20 13:22 03/11/20 01:48 Tylenol PO 650 mg Q4HR PRN Administration PAIN Allopurinol 100 mg 02/25/20 09:00 03/10/20 09:24 Zyloprim PO 100 mg DAILY [facility] Administration Aspirin 325 mg 02/29/20 17:00 03/11/20 07:55 Margot PO 325 mg BIDWM [facility] Administration Calcium Carbonate/Glycine 500 mg 03/02/20 21:00 03/10/20 21:23 Tums PO 500 mg BID [facility] Administration Cholecalciferol 50 mcg 03/03/20 09:00 03/10/20 09:22 Vitamin D3 PO 50 mcg DAILY [facility] Administration Dicyclomine HCl 10 mg 03/04/20 21:20 03/10/20 21:23 Bentyl PO 10 mg QID [facility] Administration Famotidine 20 mg 02/25/20 09:10 03/10/20 09:24 Pepcid PO 20 mg DAILY [facility] Administration Ferrous Gluconate 324 mg 02/26/20 12:00 03/11/20 07:55 Fergon PO 324 mg DAILYWM [facility] Administration Gabapentin 600 mg 02/24/20 22:00 03/11/20 06:11 Neurontin PO 600 mg TID [facility] Administration Insulin Aspart 2 - 10 unit 03/04/20 12:00 03/10/20 21:25 Novolog SUBQ 6 unit 0800,1200,1700,2100 [facility] Administration Protocol Lorazepam 0.5 mg 02/25/20 17:09 03/10/20 09:29 Ativan PO 0.5 mg Q3H PRN Administration Anxiety Magnesium Oxide 800 mg 03/01/20 08:00 03/10/20 09:24 Mag Ox PO 800 mg DAILYWM [facility] Administration Methadone HCl 5 mg 02/24/20 21:00 03/10/20 21:24 PO 5 mg BID [facility] Administration Metoprolol Tartrate 25 mg 03/02/20 23:00 03/10/20 21:23 Lopressor PO 25 mg BID [facility] Administration Mineral Oil 1 applic 02/24/20 17:34 03/07/20 17:12 Cavilon TOP 1 applic PRN PRN Administration Skin Care Multi-Ingredient Mouthwash/Gargle 30 ml 03/02/20 16:17 03/10/20 13:34 PO 30 ml Q4H PRN Administration Abdominal Pain Multivitamins/Minerals 1 tab 02/25/20 09:00 03/10/20 09:24 Theragran M PO 1 tab DAILYWM [facility] Administration Nicotine 1 patch 02/24/20 17:00 03/10/20 09:29 Nicoderm TOP 1 patch DAILY [facility] Administration Ondansetron HCl 4 mg 02/25/20 00:57 03/02/20 00:21 Zofran Odt TL 4 mg Q4HR PRN Administration Nausea / Vomiting Oxycodone HCl 15 mg 03/05/20 10:49 03/11/20 04:14 Roxicodone PO 15 mg Q6HR PRN Administration PAIN Pantoprazole Sodium 40 mg 03/07/20 17:00 03/11/20 06:12 Protonix PO 40 mg QDAC [facility] Administration Prochlorperazine Edisylate 10 mg 02/29/20 13:22 03/07/20 16:17 Compazine Inj IVP 10 mg Q6HR PRN Administration Nausea / Vomiting Sodium Chloride 10 ml 02/29/20 17:00 03/11/20 01:49 Normal Saline Flush 0.9% IVP 10 ml 0100,0900,1700 [facility] Administration Sodium Chloride 10 ml 02/29/20 13:22 03/03/20 12:22 Normal Saline Flush 0.9% IVP 10 ml PRN PRN Administration NEEDED PER PROVIDER ORDERS - Lab Result Fish Bone Diagrams: 03/05/20 05:25 03/04/20 05:18 Subjective - Subjective Patient Reports: Resting Comfortably Objective Vital Signs: Vital Signs - 24 hr 03/10/20 03/10/20 03/10/20 08:47 09:25 13:00 Temperature 36.7 C 36.6 C Heart Rate [ 73 Brachial] Heart Rate [ 65 Radial] Respiratory 18 20 Rate Blood Pressure 118/77 Blood Pressure 118/77 109/61 [Right Brachial artery] O2 Saturation 93 96 03/10/20 03/10/20 03/10/20 15:55 21:00 21:23 Temperature 36.7 C 36.6 C Heart Rate [ 70 76 Brachial] Heart Rate [ Radial] Respiratory 18 18 Rate Blood Pressure 107/66 Blood Pressure 130/72 107/68 [Right Brachial artery] O2 Saturation 98 96 03/10/20 03/11/20 03/11/20 23:45 04:55 07:49 Temperature 36.6 C 36.7 C 36.4 C L Heart Rate [ 71 73 71 Brachial] Heart Rate [ Radial] Respiratory 16 16 16 Rate Blood Pressure Blood Pressure 128/67 124/66 125/73 [Right Brachial artery] O2 Saturation 96 99 98 Oxygen O2 Source Room air I&O (Last 24 Hrs): Intake and Output Totals x24h 03/09/20 03/10/20 03/11/20 23:59 23:59 23:59 Intake Total 3080 1700 Output Total 300 600 300 Balance 2780 1100 -300 General: Alert HEENT: Mucous membr. moist/pink Neck: Supple Neuro: Non Focal Cardiovascular: Regular rate Respiratory: No respiratory distress Extremities: No edema - Results Results: Laboratory Results WBC 8.1 x10^3/uL (4.8-10.8) 03/05/20 05:25 RBC 2.77 10^6/uL (4.20-5.40) L 03/05/20 05:25 Hgb 8.7 g/dL (12.0-16.0) L 03/05/20 05:25 Hct 26.5 % (37.0-47.0) L 03/05/20 05:25 MCV 95.7 fL (81.0-99.0) 03/05/20 05:25 MCH 31.4 pg (27.0-31.0) H 03/05/20 05:25 MCHC 32.8 g/dL (32.0-36.0) 03/05/20 05:25 RDW 15.7 % (12.0-15.0) H 03/05/20 05:25 Plt Count 468 10^3/uL (130-450) H 03/05/20 05:25 MPV 10.0 fL (7.9-10.8) 03/05/20 05:25 Neut # (Auto) 5.0 10^3/uL (1.5-6.6) 03/05/20 05:25 Lymph # (Auto) 2.2 10^3/uL (1.5-3.5) 03/05/20 05:25 [place] # (Auto) 0.7 10^3/uL (0.0-1.0) 03/05/20 05:25 Eos # (Auto) 0.1 10^3/uL (0.0-0.7) 03/05/20 05:25 Baso # (Auto) 0.1 10^3/uL (0.0-0.1) 03/05/20 05:25 Absolute Nucleated RBC 0.00 x10^3/uL 03/05/20 05:25 Nucleated RBC % 0.0 /100WBC 03/05/20 05:25 PT 11.9 secs (9.9-12.6) 02/24/20 16:03 INR 1.0 (0.8-1.2) 02/24/20 16:03 Sodium 131 mmol/L (135-145) L 03/04/20 05:18 Potassium 3.8 mmol/L (3.5-5.0) 03/04/20 05:18 Chloride 98 mmol/L (101-111) L 03/04/20 05:18 Carbon Dioxide 26 mmol/L (21-32) 03/04/20 05:18 Anion Gap 7.0 (6-13) 03/04/20 05:18 BUN 15 mg/dL (6-20) 03/04/20 05:18 Creatinine 0.8 mg/dL (0.4-1.0) 03/04/20 05:18 Estimated GFR (MDRD) 75 (>89) L 03/04/20 05:18 Glucose 312 mg/dL (70-100) H 03/04/20 05:18 POC Whole Bld Glucose 211 mg/dL (70 - 100) H 03/11/20 07:42 Calcium 7.3 mg/dL (8.5-10.3) L 03/04/20 05:18 Phosphorus 3.0 mg/dL (2.5-4.6) 02/29/20 08:07 Magnesium 1.7 mg/dL (1.7-2.8) 03/03/20 04:40 Iron 78 ug/dL (28-170) 02/26/20 04:45 TIBC 132 ug/dL (250-450) L 02/26/20 04:45 % Saturation 59 % (20-50) H 02/26/20 04:45 Transferrin 94 mg/dL (192-382) L 02/26/20 04:45 Total Bilirubin 0.7 mg/dL (0.2-1.0) 02/24/20 16:03 AST 32 IU/L (10-42) 02/24/20 16:03 ALT 36 IU/L (10-60) 02/24/20 16:03 Alkaline Phosphatase 627 IU/L (42-121) H 02/24/20 16:03 Total Protein 6.3 g/dL (6.7-8.2) L 02/24/20 16:03 Albumin 1.8 g/dL (3.2-5.5) L 02/24/20 16:03 Globulin 4.5 g/dL (2.1-4.2) H 02/24/20 16:03 Albumin/Globulin Ratio 0.4 (1.0-2.2) L 02/24/20 16:03 Vitamin B12 3526 pg/mL (180-914) H 02/26/20 04:45 Folate 9.14 ng/mL (5.90 - >24.8) 02/26/20 04:45 Urine Color YELLOW 03/03/20 07:52 Urine Clarity CLEAR (CLEAR) 03/03/20 07:52 Urine pH 6.0 PH (5.0-7.5) 03/03/20 07:52 Ur Specific [place] 1.010 (1.002-1.030) 03/03/20 07:52 Urine Protein NEGATIVE mg/dL (NEGATIVE) 03/03/20 07:52 Urine Glucose (UA) NEGATIVE mg/dL (NEGATIVE) 03/03/20 07:52 Urine Ketones NEGATIVE mg/dL (NEGATIVE) 03/03/20 07:52 Urine Occult Blood MODERATE (NEGATIVE) H 03/03/20 07:52 Urine Nitrite NEGATIVE (NEGATIVE) 03/03/20 07:52 Urine Bilirubin NEGATIVE (NEGATIVE) 03/03/20 07:52 Urine Urobilinogen 0.2 (NORMAL) E.U./dL (NORMAL) 03/03/20 07:52 Ur Leukocyte Esterase NEGATIVE (NEGATIVE) 03/03/20 07:52 Urine RBC 6-10 /HPF (0-5) H 03/03/20 07:52 Urine WBC 0-3 /HPF (0-5) 03/03/20 07:52 Ur Squamous Epith Cells FEW Squamous (<= Few) 03/03/20 07:52 Urine Crystals 0-2 Calcium Oxalate /LPF 03/03/20 07:52 Urine Bacteria Rare /HPF (None Seen) 03/03/20 07:52 Urine Culture Comments NOT INDICATED 03/03/20 07:52 Stl Occult Blood (IFOB) NEGATIVE (NEGATIVE) 03/01/20 06:55 Coronavirus (PCR) NEGATIVE 02/21/20 14:40 Ref Lab Test Result REPORT 02/27/20 12:35 Blood Type O POSITIVE 02/29/20 09:20 Antibody Screen NEGATIVE 02/29/20 09:20 Crossmatch IS Only See Detail 02/29/20 09:20 - Procedures Procedures: Procedures INSERTION OF INFUSION DEV INTO SUP VENA CAVA, PERC APPROACH (08/12/18)
[2020-03-11] MEDS: INSULIN ASPART 300 UNIT/3 ML PEN SUBQ SCH ×4 (08:35→21:19)
[2020-03-11] MEDS: allopurinoL 100 MG TABLET PO SCH (08:36)
[2020-03-11] MEDS: CHOLECALCIFEROL 25 MCG TABLET PO SCH (08:36)
[2020-03-11] MEDS: METHADONE 5 MG TABLET PO SCH ×2 (08:36→21:16)
[2020-03-11] MEDS: MAGNESIUM OXIDE 400 MG TABLET PO SCH (08:36)
[2020-03-11] MEDS: DICYCLOMINE 10 MG CAPSULE PO SCH ×4 (08:36→21:16)
[2020-03-11] MEDS: FAMOTIDINE 20 MG TABLET PO SCH (08:37)
[2020-03-11] MEDS: MULTIVITAMIN W/MINERALS TABLET PO SCH (08:37)
[2020-03-11] MEDS: INSULIN GLARGINE 300 UNIT/3 ML PEN SUBQ SCH (08:38)
[2020-03-11] MEDS: CALCIUM CARBONATE CHEW 500 MG TABLET PO SCH ×2 (08:41→21:15)
[2020-03-11] MEDS: NICOTINE 14 MG PATCH TOP SCH (08:41)
[2020-03-11] MEDS: METOPROLOL TARTRATE 25 MG TABLET PO SCH ×2 (08:44→21:16)
[2020-03-11] MEDS: polyethylene glycoL 3350 17 GM PACKET PO SCH (08:45)
[2020-03-11] MEDS: GI COCKTAIL 120 ML BOTTLE PO PRN ×2 (08:58→17:08)
[2020-03-11] MEDS: LORazepam 0.5 MG TABLET PO PRN ×2 (13:59→23:39)
[2020-03-12] MEDS: LORazepam 0.5 MG TABLET PO PRN ×4 (03:45→19:29)
[2020-03-12 05:18] LABS: BASOPHILS # (AUTO) 0.1 10^3/uL (0.0-0.1); BASOPHILS % (AUTO) 1.1 %; EOSINOPHILS # (AUTO) 0.2 10^3/uL (0.0-0.7); EOSINOPHILS % (AUTO) 2.1 %; HGB - HEMOGLOBIN 9.4 g/dL (12.0-16.0); LYMPHOCYTES % (AUTO) 42.7 %; MEAN CORPUSCULAR HEMOGLOBIN 31.4 pg (27.0-31.0); MEAN CORPUSCULAR HGB CONC 32.3 g/dL (32.0-36.0); MEAN CORPUSCULAR VOLUME 97.3 fL (81.0-99.0); MEAN PLATELET VOLUME 9.6 fL (7.9-10.8); MONOCYTES # (AUTO) 0.6 10^3/uL (0.0-1.0); NEUTROPHILS # (AUTO) 3.2 10^3/uL (1.5-6.6); NEUTROPHILS % (AUTO) 45.7 %; PLT - PLATELET COUNT 714 10^3/uL (130-450); RED BLOOD COUNT 2.99 10^6/uL (4.20-5.40); RED CELL DISTRIBUTION WIDTH 15.1 % (12.0-15.0)
[2020-03-12 05:29] LABS: ALBUMIN 1.3 g/dL (3.2-5.5); ALBUMIN/GLOBULIN RATIO 0.3 (1.0-2.2); BILIRUBIN,TOTAL 0.3 mg/dL (0.2-1.0); CALCIUM 7.4 mg/dL (8.5-10.3); CREATININE 0.9 mg/dL (0.4-1.0); MAGNESIUM 1.3 mg/dL (1.7-2.8); TOTAL PROTEIN 5.3 g/dL (6.7-8.2)
[2020-03-12] MEDS: oxyCODONE 5 MG TABLET PO PRN ×3 (05:49→19:29)
[2020-03-12] MEDS: GABAPENTIN 300 MG CAPSULE PO SCH ×3 (05:50→21:26)
[2020-03-12] MEDS: PANTOPRAZOLE 40 MG TABLET PO SCH (05:50)
[2020-03-12] MEDS ORDERED: MAGNESIUM SULFATE 2 GRAM 2 GM/50 ML BAG IV ONE (08:30)
[2020-03-12] MEDS: CALCIUM CARBONATE CHEW 500 MG TABLET PO SCH ×2 (08:36→21:25)
[2020-03-12] MEDS: MAGNESIUM OXIDE 400 MG TABLET PO SCH (08:36)
[2020-03-12] MEDS: polyethylene glycoL 3350 17 GM PACKET PO SCH (08:36)
[2020-03-12] MEDS: NICOTINE 14 MG PATCH TOP SCH (08:36)
[2020-03-12] MEDS: allopurinoL 100 MG TABLET PO SCH (08:36)
[2020-03-12] MEDS: FAMOTIDINE 20 MG TABLET PO SCH (08:37)
[2020-03-12] MEDS: METHADONE 5 MG TABLET PO SCH ×2 (08:37→21:26)
[2020-03-12] MEDS: CHOLECALCIFEROL 25 MCG TABLET PO SCH (08:37)
[2020-03-12] MEDS: ASPIRIN 325 MG TABLET PO SCH ×2 (08:37→16:13)
[2020-03-12] MEDS: MULTIVITAMIN W/MINERALS TABLET PO SCH (08:37)
[2020-03-12] MEDS: DICYCLOMINE 10 MG CAPSULE PO SCH ×4 (08:38→21:26)
[2020-03-12] MEDS: FERROUS GLUCONATE 324 MG TABLET PO SCH (08:38)
[2020-03-12] MEDS: METOPROLOL TARTRATE 25 MG TABLET PO SCH ×2 (08:38→21:26)
[2020-03-12] MEDS: SODIUM CHLORIDE FLUSH 0.9% 10 ML SYRINGE IVP SCH ×2 (08:38→17:30)
[2020-03-12] MEDS: INSULIN ASPART 300 UNIT/3 ML PEN SUBQ SCH ×4 (08:45→21:20)
[2020-03-12] MEDS: INSULIN GLARGINE 300 UNIT/3 ML PEN SUBQ SCH (08:45)
[2020-03-12] MEDS: ACETAMINOPHEN 325 MG TABLET PO PRN (10:49)
[2020-03-12] MEDS: GI COCKTAIL 120 ML BOTTLE PO PRN (11:49)
--- NOTE | 2020-03-12 12:09 | PROVIDER PROGRESS NOTE ---
Subjective - General Admit Date: 02/28/20 Procedure Date: 02/29/20 Post Op Days: 12 Procedure Performed: Open reduction internal fixation hip - Review of Systems Wound/Incisions: positive: Dressing dry and intact, No drainage General: positive: No symptoms. negative: Other (Her pain to her hip appears to be well controlled and improving. Her ability to walk is improving with ph ysical therapy) Musculoskeletal: positive: Other (progressing well with physical therapy, Some pain flexion of left hip) Objective - Patient Data Vital Signs: Vital Signs x48h Temp Pulse Resp BP Pulse Ox 03/12/20 07:48 36.5 C 76 16 94/68 96 Weight: Weight 03/10/20 03/11/20 03/12/20 23:59 23:59 23:59 Weight (kg) 51 kg 53 kg 54 kg Intake & Output: Intake and Output Totals x24h 03/10/20 03/11/20 03/12/20 23:59 23:59 23:59 Intake Total 1700 1560 410 Output Total 600 600 600 Balance 1100 960 -190 - Lab Results Lab Results: 03/12/20 05:00 03/12/20 05:00 Other Lab Results: Lab Results x24hrs 03/12/20 03/12/20 03/12/20 Range/Units 11:15 07:42 05:00 WBC (4.8-10.8) x10^3/uL RBC (4.20-5.40) 10^6/uL Hgb (12.0-16.0) g/dL Hct (37.0-47.0) % MCV (81.0-99.0) fL MCH (27.0-31.0) pg MCHC (32.0-36.0) g/dL RDW (12.0-15.0) % Plt Count (130-450) 10^3/uL MPV (7.9-10.8) fL Neut # (Auto) (1.5-6.6) 10^3/uL Lymph # (Auto) (1.5-3.5) 10^3/uL Lincoln # (Auto) (0.0-1.0) 10^3/uL Eos # (Auto) (0.0-0.7) 10^3/uL Baso # (Auto) (0.0-0.1) 10^3/uL Absolute Nucleated RBC x10^3/uL Nucleated RBC % /100WBC Sodium 136 (135-145) mmol/L Potassium 4.0 (3.5-5.0) mmol/L Chloride 104 (101-111) mmol/L Carbon Dioxide 28 (21-32) mmol/L Anion Gap 4.0 L (6-13) BUN 16 (6-20) mg/dL Creatinine 0.9 (0.4-1.0) mg/dL Estimated GFR (MDRD) 66 L (>89) Glucose 167 H (70-100) mg/dL POC Whole Bld Glucose 171 H 142 H (70 - 100) mg/dL Calcium 7.4 L (8.5-10.3) mg/dL Magnesium 1.3 L (1.7-2.8) mg/dL Total Bilirubin 0.3 (0.2-1.0) mg/dL AST 30 (10-42) IU/L ALT 20 (10-60) IU/L Alkaline Phosphatase 376 H (42-121) IU/L Total Protein 5.3 L (6.7-8.2) g/dL Albumin 1.3 L (3.2-5.5) g/dL Globulin 4.0 (2.1-4.2) g/dL Albumin/Globulin Ratio 0.3 L (1.0-2.2) 03/12/20 03/11/20 03/11/20 Range/Units 05:00 20:43 16:28 WBC 7.0 (4.8-10.8) x10^3/uL RBC 2.99 L (4.20-5.40) 10^6/uL Hgb 9.4 L (12.0-16.0) g/dL Hct 29.1 L (37.0-47.0) % MCV 97.3 (81.0-99.0) fL MCH 31.4 H (27.0-31.0) pg MCHC 32.3 (32.0-36.0) g/dL RDW 15.1 H (12.0-15.0) % Plt Count 714 H (130-450) 10^3/uL MPV 9.6 (7.9-10.8) fL Neut # (Auto) 3.2 (1.5-6.6) 10^3/uL Lymph # (Auto) 3.0 (1.5-3.5) 10^3/uL Lincoln # (Auto) 0.6 (0.0-1.0) 10^3/uL Eos # (Auto) 0.2 (0.0-0.7) 10^3/uL Baso # (Auto) 0.1 (0.0-0.1) 10^3/uL Absolute Nucleated RBC 0.00 x10^3/uL Nucleated RBC % 0.0 /100WBC Sodium (135-145) mmol/L Potassium (3.5-5.0) mmol/L Chloride (101-111) mmol/L Carbon Dioxide (21-32) mmol/L Anion Gap (6-13) BUN (6-20) mg/dL Creatinine (0.4-1.0) mg/dL Estimated GFR (MDRD) (>89) Glucose (70-100) mg/dL POC Whole Bld Glucose 153 H 148 H (70 - 100) mg/dL Calcium (8.5-10.3) mg/dL Magnesium (1.7-2.8) mg/dL Total Bilirubin (0.2-1.0) mg/dL AST (10-42) IU/L ALT (10-60) IU/L Alkaline Phosphatase (42-121) IU/L Total Protein (6.7-8.2) g/dL Albumin (3.2-5.5) g/dL Globulin (2.1-4.2) g/dL Albumin/Globulin Ratio (1.0-2.2) - Current Medications Current Medications: Current Medications Generic Name Dose Route Start Last Admin Trade Name Freq PRN Reason Stop Dose Admin Acetaminophen 650 - 975 mg 02/29/20 13:22 03/12/20 10:49 Tylenol PO 650 mg Q4HR PRN Administration PAIN Allopurinol 100 mg 02/25/20 09:00 03/12/20 08:36 Zyloprim PO 100 mg DAILY BRENDON Administration Aspirin 325 mg 02/29/20 17:00 03/12/20 08:37 Margot PO 325 mg BIDWM BRENDON Administration Calcium Carbonate/Glycine 500 mg 03/02/20 21:00 03/12/20 08:36 Tums PO 500 mg BID BRENDON Administration Cholecalciferol 50 mcg 03/03/20 09:00 03/12/20 08:37 Vitamin D3 PO 50 mcg DAILY BRENDON Administration Dicyclomine HCl 10 mg 03/04/20 21:20 03/12/20 08:38 Bentyl PO 10 mg QID BRENDON Administration Famotidine 20 mg 02/25/20 09:10 03/12/20 08:37 Pepcid PO 20 mg DAILY BRENDON Administration Ferrous Gluconate 324 mg 02/26/20 12:00 03/12/20 08:38 Fergon PO 324 mg DAILYWM BRENDON Administration Gabapentin 600 mg 02/24/20 22:00 03/12/20 05:50 Neurontin PO 600 mg TID [facility] Administration Insulin Aspart 2 - 10 unit 03/04/20 12:00 03/12/20 11:46 Novolog SUBQ 2 unit 0800,1200,1700,2100 BRENDON Administration Protocol Insulin Glargine 12 unit 03/11/20 08:00 03/12/20 08:45 Lantus Solostar SUBQ 12 unit QDBREAKFAST [facility] Administration Lorazepam 0.5 mg 02/25/20 17:09 03/12/20 10:49 Ativan PO 0.5 mg Q3H PRN Administration Anxiety Magnesium Oxide 800 mg 03/01/20 08:00 03/12/20 08:36 Mag Ox PO 800 mg DAILYWM [facility] Administration Methadone HCl 5 mg 02/24/20 21:00 03/12/20 08:37 PO 5 mg BID [facility] Administration Metoprolol Tartrate 25 mg 03/02/20 23:00 03/12/20 08:38 Lopressor PO Not Given BID [facility] Mineral Oil 1 applic 02/24/20 17:34 03/07/20 17:12 Cavilon TOP 1 applic PRN PRN Administration Skin Care Multi-Ingredient Mouthwash/Gargle 30 ml 03/02/20 16:17 03/12/20 11:49 PO 30 ml Q4H PRN Administration Abdominal Pain Multivitamins/Minerals 1 tab 02/25/20 09:00 03/12/20 08:37 Theragran M PO 1 tab DAILYWM [facility] Administration Nicotine 1 patch 02/24/20 17:00 03/12/20 08:36 Nicoderm TOP 1 patch DAILY [facility] Administration Ondansetron HCl 4 mg 02/25/20 00:57 03/02/20 00:21 Zofran Odt TL 4 mg Q4HR PRN Administration Nausea / Vomiting Oxycodone HCl 15 mg 03/05/20 10:49 03/12/20 11:49 Roxicodone PO 15 mg Q6HR PRN Administration PAIN Pantoprazole Sodium 40 mg 03/07/20 17:00 03/12/20 05:50 Protonix PO 40 mg QDAC BRENDON Administration Polyethylene Glycol 17 gm 03/11/20 09:00 03/12/20 08:36 Miralax PO Not Given DAILY BRENDON Prochlorperazine Edisylate 10 mg 02/29/20 13:22 03/07/20 16:17 Compazine Inj IVP 10 mg Q6HR PRN Administration Nausea / Vomiting Sodium Chloride 10 ml 02/29/20 17:00 03/12/20 08:38 Normal Saline Flush 0.9% IVP 10 ml 0100,0900,1700 BRENDON Administration Sodium Chloride 10 ml 02/29/20 13:22 03/03/20 12:22 Normal Saline Flush 0.9% IVP 10 ml PRN PRN Administration NEEDED PER PROVIDER ORDERS - Physical Exam Wound/Incisions: positive: Healing well, Dressing dry and intact Impression/Plan - Problem List Problem List: Status post open reduction internal fixation hip fracture Patient is progressing well with physical and Occupational Therapy.
--- NOTE | 2020-03-12 12:29 | PROVIDER PROGRESS NOTE ---
Assessment/Plan - Problem List (1) Closed left hip fracture Assessment/Plan: She is POD #12. She is progressing with physical therapy and has actually accomplished what she can do, and is at her baseline, according to PT. (2) Diabetes mellitus with hyperglycemia Qualifiers: Diabetes mellitus type: type 2 Diabetes mellitus fpc insulin use: with terminologist use Qualified Code(s): E11.65 - Type 2 diabetes mellitus with hyperglycemia; Z79.4 - penitentiary (current) use of insulin Assessment/Plan: This patient was on a regular diet throughout this hospital stay, because she requested to stay on what hospice put her on, [facility] wanted her on comfort food. A new hospice referral was sent at the beginning of this hospitalization, but no hospice consult was ever done here on site. Yesterday our social science research assistant called the hospice office, we were told to discuss with Dr. Kevin directly. This patient does not appear to have any hospice related diagnoses, she is doing fine with nutrition now that she is not homeless, her liver cirrhosis and LFTs are stable, diabetes is being managed, she makes impulsive decisions, but this is not something new. Yesterday she requested to go back to a diabetic diet. Continue with long-acting and short acting insulin coverage. (3) Anemia Qualifiers: Anemia type: iron deficiency Assessment/Plan: She is getting iron replacement while here. There had been no CBC for about 1 week. CBC was done today, the hemoglobin is stable. (4) Chronic pain Assessment/Plan: Current meds ordered are controlling her pain (5) Fall during current hospitalization Qualifiers: Encounter type: subsequent encounter Qualified Code(s): W19.XXXD - Unspecified fall, subsequent encounter; Y92.239 - Unspecified place in hospital as the place of occurrence of the external cause Assessment/Plan: This was the cause of the hip fracture that needed surgery (see #1) (6) Alcoholic cirrhosis of liver Qualifiers: Ascites presence: unspecified Qualified Code(s): K70.30 - Alcoholic cirrhosis of liver without ascites Assessment/Plan: Stable LFTs, no ascites, normal INR. (7) At risk for unsafe behavior Assessment/Plan: As per history: Patient took excessive amounts all at once of the sedatives and anxiolytics that were prescribed by [facility], when she was staying with her friend in the friend's trailer. Her obtundation then led to this presentation to the ER (8) Homeless Assessment/Plan: As per Hx - Current Meds Current Meds: Current Medications Generic Name Dose Route Start Last Admin Trade Name Freq PRN Reason Stop Dose Admin Acetaminophen 650 - 975 mg 02/29/20 13:22 03/12/20 10:49 Tylenol PO 650 mg Q4HR PRN Administration PAIN Allopurinol 100 mg 02/25/20 09:00 03/12/20 08:36 Zyloprim PO 100 mg DAILY BRENDON Administration Aspirin 325 mg 02/29/20 17:00 03/12/20 08:37 Margot PO 325 mg BIDWM BRENDON Administration Calcium Carbonate/Glycine 500 mg 03/02/20 21:00 03/12/20 08:36 Tums PO 500 mg BID BRENDON Administration Cholecalciferol 50 mcg 03/03/20 09:00 03/12/20 08:37 Vitamin D3 PO 50 mcg DAILY BRENDON Administration Dicyclomine HCl 10 mg 03/04/20 21:20 03/12/20 08:38 Bentyl PO 10 mg QID BRENDON Administration Famotidine 20 mg 02/25/20 09:10 03/12/20 08:37 Pepcid PO 20 mg DAILY BRENDON Administration Ferrous Gluconate 324 mg 02/26/20 12:00 03/12/20 08:38 Fergon PO 324 mg DAILYWM BRENDON Administration Gabapentin 600 mg 02/24/20 22:00 03/12/20 05:50 Neurontin PO 600 mg TID BRENDON Administration Insulin Aspart 2 - 10 unit 03/04/20 12:00 03/12/20 11:46 Novolog SUBQ 2 unit 0800,1200,1700,2100 BRENDON Administration Protocol Insulin Glargine 12 unit 03/11/20 08:00 03/12/20 08:45 Lantus Solostar SUBQ 12 unit QDBREAKFAST BRENDON Administration Lorazepam 0.5 mg 02/25/20 17:09 03/12/20 10:49 Ativan PO 0.5 mg Q3H PRN Administration Anxiety Magnesium Oxide 800 mg 03/01/20 08:00 03/12/20 08:36 Mag Ox PO 800 mg DAILYWM BRENDON Administration Methadone HCl 5 mg 02/24/20 21:00 03/12/20 08:37 PO 5 mg BID BRENDON Administration Metoprolol Tartrate 25 mg 03/02/20 23:00 03/12/20 08:38 Lopressor PO Not Given BID BRENDON Mineral Oil 1 applic 02/24/20 17:34 03/07/20 17:12 Cavilon TOP 1 applic PRN PRN Administration Skin Care Multi-Ingredient Mouthwash/Gargle 30 ml 03/02/20 16:17 03/12/20 11:49 PO 30 ml Q4H PRN Administration Abdominal Pain Multivitamins/Minerals 1 tab 02/25/20 09:00 03/12/20 08:37 Theragran M PO 1 tab DAILYWM BRENDON Administration Nicotine 1 patch 02/24/20 17:00 03/12/20 08:36 Nicoderm TOP 1 patch DAILY BRENDON Administration Ondansetron HCl 4 mg 02/25/20 00:57 03/02/20 00:21 Zofran Odt TL 4 mg Q4HR PRN Administration Nausea / Vomiting Oxycodone HCl 15 mg 03/05/20 10:49 03/12/20 11:49 Roxicodone PO 15 mg Q6HR PRN Administration PAIN Pantoprazole Sodium 40 mg 03/07/20 17:00 03/12/20 05:50 Protonix PO 40 mg QDAC BRENDON Administration Polyethylene Glycol 17 gm 03/11/20 09:00 03/12/20 08:36 Miralax PO Not Given DAILY BRENDON Prochlorperazine Edisylate 10 mg 02/29/20 13:22 03/07/20 16:17 Compazine Inj IVP 10 mg Q6HR PRN Administration Nausea / Vomiting Sodium Chloride 10 ml 02/29/20 17:00 03/12/20 08:38 Normal Saline Flush 0.9% IVP 10 ml 0100,0900,1700 BRENDON Administration Sodium Chloride 10 ml 02/29/20 13:22 03/03/20 12:22 Normal Saline Flush 0.9% IVP 10 ml PRN PRN Administration NEEDED PER PROVIDER ORDERS - Lab Result Fish Bone Diagrams: 03/12/20 05:00 03/12/20 05:00 - Additional Planning My Orders: My Active Orders 03/12/20 Breakfast Carb-controlled Diet [DIET] Subjective - Subjective Patient Reports: Other (Wants to be discharged. Yesterday, she requested to go back on a diabetic diet.) Objective Vital Signs: Vital Signs - 24 hr 03/11/20 03/11/20 03/11/20 15:59 21:00 21:16 Temperature 36.9 C 36.8 C Heart Rate [ 73 75 Brachial] Respiratory 18 19 Rate Blood Pressure 116/66 Blood Pressure 110/66 116/66 [Right Brachial artery] O2 Saturation 97 97 03/11/20 03/12/20 03/12/20 23:42 03:41 07:48 Temperature 36.8 C 36.8 C 36.5 C Heart Rate [ 73 77 76 Brachial] Respiratory 16 16 16 Rate Blood Pressure Blood Pressure 110/64 120/69 94/68 [Right Brachial artery] O2 Saturation 95 96 96 Oxygen O2 Source Room air I&O (Last 24 Hrs): Intake and Output Totals x24h 03/10/20 03/11/20 03/12/20 23:59 23:59 23:59 Intake Total 1700 1560 410 Output Total 600 600 600 Balance 1100 960 -190 General: Alert, Oriented x3 HEENT: Mucous membr. moist/pink Neck: Supple Neuro: Alert, Non Focal Cardiovascular: Regular rate Respiratory: No respiratory distress Abdomen: Soft Extremities: No edema - Results Results: Laboratory Results WBC 7.0 x10^3/uL (4.8-10.8) 03/12/20 05:00 RBC 2.99 10^6/uL (4.20-5.40) L 03/12/20 05:00 Hgb 9.4 g/dL (12.0-16.0) L 03/12/20 05:00 Hct 29.1 % (37.0-47.0) L 03/12/20 05:00 MCV 97.3 fL (81.0-99.0) 03/12/20 05:00 MCH 31.4 pg (27.0-31.0) H 03/12/20 05:00 MCHC 32.3 g/dL (32.0-36.0) 03/12/20 05:00 RDW 15.1 % (12.0-15.0) H 03/12/20 05:00 Plt Count 714 10^3/uL (130-450) H 03/12/20 05:00 MPV 9.6 fL (7.9-10.8) 03/12/20 05:00 Neut # (Auto) 3.2 10^3/uL (1.5-6.6) 03/12/20 05:00 Lymph # (Auto) 3.0 10^3/uL (1.5-3.5) 03/12/20 05:00 Daniels # (Auto) 0.6 10^3/uL (0.0-1.0) 03/12/20 05:00 Eos # (Auto) 0.2 10^3/uL (0.0-0.7) 03/12/20 05:00 Baso # (Auto) 0.1 10^3/uL (0.0-0.1) 03/12/20 05:00 Absolute Nucleated RBC 0.00 x10^3/uL 03/12/20 05:00 Nucleated RBC % 0.0 /100WBC 03/12/20 05:00 PT 11.9 secs (9.9-12.6) 02/24/20 16:03 INR 1.0 (0.8-1.2) 02/24/20 16:03 Sodium 136 mmol/L (135-145) 03/12/20 05:00 Potassium 4.0 mmol/L (3.5-5.0) 03/12/20 05:00 Chloride 104 mmol/L (101-111) 03/12/20 05:00 Carbon Dioxide 28 mmol/L (21-32) 03/12/20 05:00 Anion Gap 4.0 (6-13) L 03/12/20 05:00 BUN 16 mg/dL (6-20) 03/12/20 05:00 Creatinine 0.9 mg/dL (0.4-1.0) 03/12/20 05:00 Estimated GFR (MDRD) 66 (>89) L 03/12/20 05:00 Glucose 167 mg/dL (70-100) H 03/12/20 05:00 POC Whole Bld Glucose 171 mg/dL (70 - 100) H 03/12/20 11:15 Calcium 7.4 mg/dL (8.5-10.3) L 03/12/20 05:00 Phosphorus 3.0 mg/dL (2.5-4.6) 02/29/20 08:07 Magnesium 1.3 mg/dL (1.7-2.8) L 03/12/20 05:00 Iron 78 ug/dL (28-170) 02/26/20 04:45 TIBC 132 ug/dL (250-450) L 02/26/20 04:45 % Saturation 59 % (20-50) H 02/26/20 04:45 Transferrin 94 mg/dL (192-382) L 02/26/20 04:45 Total Bilirubin 0.3 mg/dL (0.2-1.0) 03/12/20 05:00 AST 30 IU/L (10-42) 03/12/20 05:00 ALT 20 IU/L (10-60) 03/12/20 05:00 Alkaline Phosphatase 376 IU/L (42-121) H 03/12/20 05:00 Total Protein 5.3 g/dL (6.7-8.2) L 03/12/20 05:00 Albumin 1.3 g/dL (3.2-5.5) L 03/12/20 05:00 Globulin 4.0 g/dL (2.1-4.2) 03/12/20 05:00 Albumin/Globulin Ratio 0.3 (1.0-2.2) L 03/12/20 05:00 Vitamin B12 3526 pg/mL (180-914) H 02/26/20 04:45 Folate 9.14 ng/mL (5.90 - >24.8) 02/26/20 04:45 Urine Color YELLOW 03/03/20 07:52 Urine Clarity CLEAR (CLEAR) 03/03/20 07:52 Urine pH 6.0 PH (5.0-7.5) 03/03/20 07:52 Ur Specific [place] 1.010 (1.002-1.030) 03/03/20 07:52 Urine Protein NEGATIVE mg/dL (NEGATIVE) 03/03/20 07:52 Urine Glucose (UA) NEGATIVE mg/dL (NEGATIVE) 03/03/20 07:52 Urine Ketones NEGATIVE mg/dL (NEGATIVE) 03/03/20 07:52 Urine Occult Blood MODERATE (NEGATIVE) H 03/03/20 07:52 Urine Nitrite NEGATIVE (NEGATIVE) 03/03/20 07:52 Urine Bilirubin NEGATIVE (NEGATIVE) 03/03/20 07:52 Urine Urobilinogen 0.2 (NORMAL) E.U./dL (NORMAL) 03/03/20 07:52 Ur Leukocyte Esterase NEGATIVE (NEGATIVE) 03/03/20 07:52 Urine RBC 6-10 /HPF (0-5) H 03/03/20 07:52 Urine WBC 0-3 /HPF (0-5) 03/03/20 07:52 Ur Squamous Epith Cells FEW Squamous (<= Few) 03/03/20 07:52 Urine Crystals 0-2 Calcium Oxalate /LPF 03/03/20 07:52 Urine Bacteria Rare /HPF (None Seen) 03/03/20 07:52 Urine Culture Comments NOT INDICATED 03/03/20 07:52 Stl Occult Blood (IFOB) NEGATIVE (NEGATIVE) 03/01/20 06:55 Coronavirus (PCR) NEGATIVE 02/21/20 14:40 Ref Lab Test Result REPORT 02/27/20 12:35 Blood Type O POSITIVE 02/29/20 09:20 Antibody Screen NEGATIVE 02/29/20 09:20 Crossmatch IS Only See Detail 02/29/20 09:20 - Procedures Procedures: Procedures INSERTION OF INFUSION DEV INTO SUP VENA CAVA, PERC APPROACH (08/12/18)
[2020-03-13] MEDS: oxyCODONE 5 MG TABLET PO PRN ×3 (01:29→14:49)
[2020-03-13] MEDS: SODIUM CHLORIDE FLUSH 0.9% 10 ML SYRINGE IVP SCH ×3 (01:29→17:02)
[2020-03-13] MEDS: LORazepam 0.5 MG TABLET PO PRN (05:13)
[2020-03-13] MEDS: PANTOPRAZOLE 40 MG TABLET PO SCH (06:00)
[2020-03-13] MEDS: GABAPENTIN 300 MG CAPSULE PO SCH ×2 (06:00→14:02)
[2020-03-13] MEDS: INSULIN ASPART 300 UNIT/3 ML PEN SUBQ SCH ×3 (07:47→16:54)
[2020-03-13] MEDS: FAMOTIDINE 20 MG TABLET PO SCH (08:48)
[2020-03-13] MEDS: MULTIVITAMIN W/MINERALS TABLET PO SCH (08:49)
[2020-03-13] MEDS: CHOLECALCIFEROL 25 MCG TABLET PO SCH (08:49)
[2020-03-13] MEDS: METOPROLOL TARTRATE 25 MG TABLET PO SCH (08:49)
[2020-03-13] MEDS: ASPIRIN 325 MG TABLET PO SCH ×2 (08:49→16:54)
[2020-03-13] MEDS: CALCIUM CARBONATE CHEW 500 MG TABLET PO SCH (08:50)
[2020-03-13] MEDS: allopurinoL 100 MG TABLET PO SCH (08:50)
[2020-03-13] MEDS: MAGNESIUM OXIDE 400 MG TABLET PO SCH (08:50)
[2020-03-13] MEDS: DICYCLOMINE 10 MG CAPSULE PO SCH ×3 (08:50→16:54)
[2020-03-13] MEDS: FERROUS GLUCONATE 324 MG TABLET PO SCH (08:51)
[2020-03-13] MEDS: METHADONE 5 MG TABLET PO SCH (08:52)
[2020-03-13] MEDS: polyethylene glycoL 3350 17 GM PACKET PO SCH (08:53)
[2020-03-13] MEDS: NICOTINE 14 MG PATCH TOP SCH (08:53)
[2020-03-13] MEDS: INSULIN GLARGINE 300 UNIT/3 ML PEN SUBQ SCH (08:54)
[2020-03-13] MEDS: GI COCKTAIL 120 ML BOTTLE PO PRN (11:56)
[2020-03-13 16:00] VITALS: BP 110/71
--- NOTE | 2020-03-13 19:27 | DISCHARGE SUMMARY ---
Discharge Summary Admit Date: 02/24/20 Discharge Date: 03/13/20 Discharging Provider: Dr Angela Dial Primary Care Provider: Dr Lalit Horne Condition at Discharge: Stable Discharge Disposition: Against Medical Advice - HOSPITAL COURSE Hospital Course: (1) Obtundation She presented to the ER obtunded, after taking excessive amounts of meds prescribed by her new Hospice agency. She had been sleeping it off in our ER for 2 days. When she was placed in Observation, at the request of hospital administration, she was alert and remained alert through this hospitalization. (2) Opiate use She has a Hx of chronic opiate use for (abdominal) pain control, and had taken an excessive dose, leading to this presentation. (3) At risk for unsafe behavior As per history and this presenting event confirmed she makes unsafe decisions. (4) Closed left hip fracture On 02/28/20, she fell in the bathroom and suffered a fractured hip. She was made an inpatient. She underwent successful hip surgery and then completed physical therapy and was actually at her baseline when she signed out AMA on 03/13/20. The SW and UR staff were trying to get get her accepted at a residential Care facility, but she left AMA. (5) Fall during current hospitalization She was bending down, dressing, on a wet bathroom floor and fell. This was the cause of the hip fracture that led to inpatient status and hip surgery. (6) Diabetes mellitus with hyperglycemia This patient was on a Regular diet throughout this hospital stay, because she requested to stay on what Hospice [facility] had put her on, they had ordered comfort food. Yesterday she requested to go back to a diabetic diet. Continue with long-acting and short acting insulin coverage. (7) Brittle Diabetes This patient had a history of large swings in serum glucose, and symptomatic hypoglycemia, to the point that she had been weaned off all Insulin at the time of this presentation. She was managed during this hospitalization on a Regular diet but some long-acting and Regular sliding scale coverage were used. One time, she requested to resume a Diabetic diet, which was done and led to a morning serum glucose of 45. Thus, the Regular diet was resumed. (8) Anemia, iron deficiency She was getting oral iron replacement while here. The hemoglobin was stable at 9-10. (9) Chronic pain Inpatient meds that were ordered were controlling her hip and her past chronic abdominal pain. (10) Alcoholic cirrhosis of liver Stable LFTs, no ascites, normal INR during this hospitalization. (11) Homeless As per Hx. A new hospice referral was sent at the beginning of this hospitalization, but no hospice consult was ever done. However, this patient does not appear to have any hospice related diagnoses, since she is doing fine with nutrition now that she is not homeless, her liver cirrhosis and LFTs are stable, and her diabetes is being managed. She makes impulsive decisions, but this is not something new. (12) Severe protein calorie malnutrition As per Hx and likely related to homeless status. - ALLERGIES Allergies/Adverse Reactions: Allergies Allergy/AdvReac Type Severity Reaction Status Date / Time morphine AdvReac Itching Verified 02/28/20 14:08 - MEDICATIONS Home Medications: Ambulatory Orders Medication Instructions Recorded Confirmed Omeprazole 40 mg PO DAILY 08/12/18 02/09/20 Gabapentin 600 mg PO TID 10/28/19 02/24/20 allopurinoL [Allopurinol] 100 mg PO DAILY 10/28/19 02/24/20 Insulin Aspart [NovoLOG] 4 unit SQ TIDWM 02/09/20 02/09/20 Haloperidol Oral Soln [Haldol Oral 0.5 - 20 mg PO Q2H PRN 02/24/20 02/24/20 Soln] Insulin Glargine [Lantus Solostar] 5 unit SUBQ BID 02/24/20 02/24/20 LORazepam [Ativan] 0.5 - 2 mg PO Q2H PRN 02/24/20 02/24/20 Methadone 5 mg PO BID 02/24/20 02/24/20 Morphine Sulfate [Morphine Sulf 5 mg PO Q1H PRN 02/24/20 02/24/20 Oral (Roxanol)] Ondansetron [Ondansetron Odt] 4 mg PO Q8H PRN 02/24/20 02/24/20 Sennosides [Senna] 8.6 mg PO BID PRN 02/24/20 02/24/20 oxyCODONE [Roxicodone] 5 mg PO Q4H PRN 02/24/20 02/24/20 - PHYSICAL EXAM AT DISCHARGE General Appearance: positive: No acute distress, Alert Eyes Bilateral: positive: Normal inspection, EOMI ENT: positive: ENT inspection nml, No signs of dehydration Neck: positive: Nml inspection, No JVD Respiratory: positive: No respiratory distress, Breath sounds nml Cardiovascular: positive: Regular rate & rhythm, No murmur Abdomen: positive: Non-tender, No distention Skin: positive: Color nml, Warm, Dry Extremities: positive: Other (1+ pedal edema) Neurologic/Psychiatric: positive: Oriented x3 (Non-focal) - LABS Result Diagrams: 03/12/20 05:00 03/12/20 05:00 - DIAGNOSTIC IMAGING Diagnostic Imaging Results: Final report reviewed - FOLLOW UP Follow Up: See PCP and [facility] in hospital follow-up in about 1 week. - TIME SPENT Time Spent in Discharge (Minutes): 45
[2020-03-14] MEDS ORDERED: INSULIN GLARGINE 300 UNIT/3 ML PEN SUBQ SCH (08:00)
== END 2020-03-13 17:35 | disposition left against medical advice (07) | DRG 480 ==
LOC: EDUNIT# → ED 13:41 → MS2 02-24 13:40 → UNDOADMIN 02-24 13:40 → INTOOBSV 02-24 14:25 → MS2 02-24 14:25 → UNDOADMOB 02-24 14:25 → MS2 02-25 11:40 → OBSVTOIN 02-28 11:06
PROVIDERS: ADMIT Internal Medicine; ATTEND Internal Medicine
PROC: 0QS706Z Reposition Left Upper Femur with Intramedullary Internal Fixation Device, Open Approach (ICD-10-PCS; principal; 2020-02-29 11:00)
PROC: 30233N1 Transfusion of Nonautologous Red Blood Cells into Peripheral Vein, Percutaneous Approach (ICD-10-PCS; 2020-03-02)
DX: S72.142A Displaced intertrochanteric fracture of left femur, initial encounter for closed fracture (principal); E43 Unspecified severe protein-calorie malnutrition; D62 Acute posthemorrhagic anemia; K86.1 Other chronic pancreatitis; R64 Cachexia; W01.0XXA Fall on same level from slipping, tripping and stumbling without subsequent striking against object, initial encounter; Y92.230 Patient room in hospital as the place of occurrence of the external cause; T40.601A Poisoning by unspecified narcotics, accidental (unintentional), initial encounter; F11.90 Opioid use, unspecified, uncomplicated; R62.7 Adult failure to thrive; K70.31 Alcoholic cirrhosis of liver with ascites; G89.29 Other chronic pain; Z59.0 Homelessness; D50.9 Iron deficiency anemia, unspecified; E11.65 Type 2 diabetes mellitus with hyperglycemia; E87.6 Hypokalemia; Z72.89 Other problems related to lifestyle; Z20.828 Contact with and (suspected) exposure to other viral communicable diseases; Z53.29 Procedure and treatment not carried out because of patient's decision for other reasons; F17.210 Nicotine dependence, cigarettes, uncomplicated; T14.8XXA Other injury of unspecified body region, initial encounter; Z66 Do not resuscitate; K21.9 Gastro-esophageal reflux disease without esophagitis; K80.20 Calculus of gallbladder without cholecystitis without obstruction
CPT/HCPCS: 36415; 70450; 73502; 73590; 80048; 80053; 81001; 81599; 82274; 82607; 82746; 83540; 83735; 84100; 84132; 84466; 85014; 85018; 85025; 85610; 86850; 86900; 86901; 86920; 87635; 96372; 97110; 97116; 97161; 97166; 97530; 99283; 99285; A6250; A9270; G0378; J0131; J1170; J1650; J1815; J7120; P9016; Q0162; 82728; 83615; 85045; 87045; 87046; 87086; 87493

== ENCOUNTER 2020-03-17 13:03 | Outpatient (CLI) | payer MEDICAID | END 2020-03-17 13:04 | disposition short-term general hospital (02) | LOC: EMS 13:03 | PROVIDERS: ATTEND Surgery | DX: Z74.9 Problem related to care provider dependency, unspecified (principal) | CPT/HCPCS: A0425; A0429 ==

== ENCOUNTER → 2020-04-10 | Outpatient (CLI) | payer MEDICAID ==
[2020-04-10 18:20] LABS: BASOPHILS % (AUTO) 0.3 %; EOSINOPHILS # (AUTO) 0.1 10^3/uL (0.0-0.7); EOSINOPHILS % (AUTO) 0.8 %; HGB - HEMOGLOBIN 10.7 g/dL (12.0-16.0); LYMPHOCYTES # (AUTO) 1.7 10^3/uL (1.5-3.5); LYMPHOCYTES % (AUTO) 25.9 %; MEAN CORPUSCULAR HGB CONC 31.3 g/dL (32.0-36.0); MEAN CORPUSCULAR VOLUME 105.6 fL (81.0-99.0); MEAN PLATELET VOLUME 11.1 fL (7.9-10.8); MONOCYTES # (AUTO) 0.1 10^3/uL (0.0-1.0); MONOCYTES % (AUTO) 1.9 %; NEUTROPHILS # (AUTO) 4.5 10^3/uL (1.5-6.6); NEUTROPHILS % (AUTO) 70.8 %; RED BLOOD COUNT 3.24 10^6/uL (4.20-5.40); RED CELL DISTRIBUTION WIDTH 16.8 % (12.0-15.0); WHITE BLOOD COUNT 6.4 x10^3/uL (4.8-10.8)
[2020-04-10 18:40] LABS: ALBUMIN 2.3 g/dL (3.2-5.5); ALBUMIN/GLOBULIN RATIO 0.4 (1.0-2.2); BILIRUBIN,TOTAL 0.3 mg/dL (0.2-1.0); CALCIUM 7.8 mg/dL (8.5-10.3); CREATININE 0.7 mg/dL (0.4-1.0); TOTAL PROTEIN 7.8 g/dL (6.7-8.2)
[2020-04-10 20:47] LABS: HEMOGLOBIN A1c% 7.3 % (4.27-6.07)
[2020-04-10 21:21] LABS: PLATELET ESTIMATE, MANUAL INCREASED (>450,000) (NORMAL); PLATELET MORPHOLOGY NORMAL APPEARANCE (NORMAL); PLT - PLATELET COUNT 1314 10^3/uL (130-450)
== END ==
LOC: LAB.WCP 13:15
PROVIDERS: ATTEND Nurse Practitioner
DX: I10 Essential (primary) hypertension (principal); E11.40 Type 2 diabetes mellitus with diabetic neuropathy, unspecified
CPT/HCPCS: 36415; 80053; 83036; 85025

== ENCOUNTER 2020-05-02 10:08 | Outpatient (CLI) | payer MEDICAID | END 2020-05-02 10:09 | disposition short-term general hospital (02) | LOC: EMS 10:08 | PROVIDERS: ATTEND Surgery | DX: R10.9 Unspecified abdominal pain (principal); R19.7 Diarrhea, unspecified; R11.0 Nausea | CPT/HCPCS: A0425; A0427 ==

== ENCOUNTER 2020-05-08 07:08 | Outpatient (CLI) | payer MEDICAID | END 2020-05-08 07:09 | disposition critical access hospital (66) | LOC: EMS 07:08 | PROVIDERS: ATTEND Surgery | DX: R10.10 Upper abdominal pain, unspecified (principal) | CPT/HCPCS: A0425; A0429; A0999 ==

== ENCOUNTER 2020-05-08 07:24 | Inpatient (IN) | payer MEDICAID ==
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
[2020-05-08] MEDS ORDERED: HYDROmorphone 1 MG/ML CARPUJECT IVP STA ×2 (07:51→09:43)
[2020-05-08] MEDS ORDERED: SODIUM CHLORIDE 0.9% 1,000 ML IV STA ×2 (07:51→08:54)
[2020-05-08] MEDS ORDERED: PANTOPRAZOLE 40 MG VIAL IVP STA (07:52)
[2020-05-08] MEDS ORDERED: HALOPERIDOL 5 MG/ML VIAL IVP ONE (07:52)
[2020-05-08 08:30] LABS: BASOPHILS % (AUTO) 0.5 %; EOSINOPHILS # (AUTO) 0.1 10^3/uL (0.0-0.7); EOSINOPHILS % (AUTO) 0.9 %; HGB - HEMOGLOBIN 10.6 g/dL (12.0-16.0); LYMPHOCYTES # (AUTO) 1.6 10^3/uL (1.5-3.5); LYMPHOCYTES % (AUTO) 23.5 %; MEAN CORPUSCULAR HEMOGLOBIN 30.7 pg (27.0-31.0); MEAN CORPUSCULAR HGB CONC 32.6 g/dL (32.0-36.0); MEAN CORPUSCULAR VOLUME 94.2 fL (81.0-99.0); MEAN PLATELET VOLUME 11.7 fL (7.9-10.8); MONOCYTES # (AUTO) 0.4 10^3/uL (0.0-1.0); MONOCYTES % (AUTO) 5.4 %; NEUTROPHILS # (AUTO) 4.6 10^3/uL (1.5-6.6); NEUTROPHILS % (AUTO) 69.4 %; PLT - PLATELET COUNT 405 10^3/uL (130-450); RED BLOOD COUNT 3.45 10^6/uL (4.20-5.40); RED CELL DISTRIBUTION WIDTH 13.6 % (12.0-15.0); WHITE BLOOD COUNT 6.6 x10^3/uL (4.8-10.8)
[2020-05-08 08:42] LABS: MUDS CUTOFF CONCENTRATIONS CUTOFF CONC BELOW:
[2020-05-08 08:51] LABS: ALBUMIN 2.7 g/dL (3.2-5.5); ALBUMIN/GLOBULIN RATIO 0.5 (1.0-2.2); ALKALINE PHOSPHATASE 736 IU/L (42-121); ALT ALANINE AMINOTRANSFERASE 76 IU/L (10-60); AST ASPARTATE AMINOTRANSFERASE 127 IU/L (10-42); BILIRUBIN,TOTAL 0.6 mg/dL (0.2-1.0); BUN - BLOOD UREA NITROGEN 12 mg/dL (6-20); CALCIUM 8.2 mg/dL (8.5-10.3); CARBON DIOXIDE - CO2 25 mmol/L (21-32); CREATININE 0.9 mg/dL (0.4-1.0); LIPASE 20 U/L (22-51); TOTAL PROTEIN 7.8 g/dL (6.7-8.2)
[2020-05-08 08:52] LABS: CHLORIDE 79 mmol/L (101-111); SODIUM 119 mmol/L (135-145)
[2020-05-08 08:53] LABS: GLUCOSE 1047 mg/dL (70-100)
[2020-05-08] MEDS ORDERED: INSULIN REGULAR HUMAN 100 UNIT/1 ML 10 ML MDV IVP STA (08:55)
[2020-05-08 08:56] LABS: BILIRUBIN,URINE NEGATIVE (NEGATIVE); GLUCOSE, URINE (UA) >=1000 mg/dL (NEGATIVE); KETONES,URINE (UA) NEGATIVE (NEGATIVE); LEUKOCYTE ESTERASE, URINE NEGATIVE (NEGATIVE); NITRITE,URINE NEGATIVE (NEGATIVE); OCCULT BLOOD,URINE TRACE-INTA (NEGATIVE); PROTEIN,URINE NEGATIVE (NEGATIVE); UROBILINOGEN,URINE 0.2 (NORMAL) E.U./dL (NORMAL)
[2020-05-08 08:59] LABS: CLARITY,URINE CLEAR (CLEAR)
[2020-05-08 09:05] LABS: AMPHETAMINE SCREEN,URINE NEGATIVE (NEGATIVE); BENZODIAZEPINES SCREEN, URINE NEGATIVE (NEGATIVE); COCAINE SCREEN URINE NEGATIVE (NEGATIVE); METHADONE SCREEN, URINE NEGATIVE (NEGATIVE); METHAMPHETAMINES SCREEN, URINE NEGATIVE (NEGATIVE); OPIATE SCREEN, URINE NEGATIVE (NEGATIVE); OXYCODONE SCREEN, URINE NEGATIVE (NEGATIVE); PROPOXYPHENE SCREEN, URINE NEGATIVE (NEGATIVE); TRICYCLIC ANTIDEPRESSANT,URINE NEGATIVE (NEGATIVE)
[2020-05-08 09:26] LABS: VBG PH 7.309 (7.31-7.41)
[2020-05-08 09:27] LABS: VBG PCO2 47.7 mmHg (41-51); VBG PO2 45.3 mmHg (25-47); VBG TOTAL CO2 24.9 mmol/L (24-29)
[2020-05-08] MEDS ORDERED: PROCHLORPERAZINE 10 MG/2 ML VIAL IVP STA (09:42)
--- NOTE | 2020-05-08 10:38 | Ultrasound Report ---
PROCEDURE: Abdomen Limited INDICATIONS: RUQ pain, history of gallstones TECHNIQUE: Real-time focused scanning was performed of the abdomen, with image documentation. COMPARISON: Abdominal CT abdomen/pelvis 02/08/2020. FINDINGS: The liver is enlarged at 17.6 cm craniocaudad and diffusely echogenic. This is consistent with fatty infiltration. Cavernous transformation of the portal region is noted diffusely prominent v ascularity in this area and several adjacent linear parenchymal punctate calcifications. The gallblad krysta contains sludge and mobile stones the largest of which measure up to 8 x 5 x 6 mm. The gallbladde r wall, however is not thickened. Note is made of a gallstone within the gallbladder neck measuring 4 x 7 mm. Common bile duct is mildly enlarged at 8 mm. The pancreas could not be seen due to overlying bowel gas. The right kidney was assessed and measures normal in size but demonstrates loss of the normal cortical medullary junction, which can be seen in renal cortical edema. IMPRESSION: 1. Echogenic enlarged liver, consistent with fatty infiltration, and what appears to be cavernous tra nsformation of portal system with collateral vessels seen clearly prominent at the esteban hepatis by u ltrasound. 2. Gallstones within the gallbladder lumen including at the gallbladder neck. Gallbladder wall thicke juani is not seen. Sludge is present within the gallbladder lumen. Nuclear medicine hepatobiliary scan could be utilized to determine whether the cystic duct is patent. 3. Note is made of mild prominence of the common bile duct at 8 mm, just above the upper limits of no rmal for a patient with gallbladder in place. 4. Relatively large right kidney with loss of cortical medullary differentiation which can indicate e justine and pyelonephritis. Please correlate clinically for urinary tract infection. No renal collecting system obstruction or calculus is found. Reviewed by: Phil Lemus MD on 05/08/2020 10:36 AM PST Approved by: Phil Lemus MD on 05/08/2020 10:36 AM PST Station ID: [id number]
[2020-05-08] MEDS ORDERED: INSULIN REGULAR HUMAN 100 UNIT in SODIUM CHLORIDE 0.9% 100ML 99 ML IV STA (10:55)
[2020-05-08] MEDS ORDERED: ONDANSETRON 4 MG/2 ML VIAL IVP PRN (11:39)
[2020-05-08] MEDS ORDERED: SODIUM CHLORIDE 0.9% 1,000 ML IV SCH (12:00)
[2020-05-08] MEDS ORDERED: INSULIN REGULAR HUMAN 100 UNIT in SODIUM CHLORIDE 0.9% 100ML 99 ML IV SCH (12:00)
[2020-05-08 12:31] LABS: BUN - BLOOD UREA NITROGEN 11 mg/dL (6-20); CALCIUM 7.9 mg/dL (8.5-10.3); CARBON DIOXIDE - CO2 25 mmol/L (21-32); CHLORIDE 86 mmol/L (101-111); CREATININE 0.9 mg/dL (0.4-1.0); MAGNESIUM 1.2 mg/dL (1.7-2.8); SODIUM 124 mmol/L (135-145)
[2020-05-08 12:36] LABS: GLUCOSE 805 mg/dL (70-100)
[2020-05-08 12:49] LABS: KETONES, SERUM (ACETEST) NEGATIVE (NEGATIVE)
[2020-05-08] MEDS: MAGNESIUM SULFATE 2 GRAM 2 GM/50 ML BAG IV SCH ×2 (14:09→15:50)
[2020-05-08 14:49] LABS: CALCIUM 8.2 mg/dL (8.5-10.3); CREATININE 0.7 mg/dL (0.4-1.0); MAGNESIUM 1.4 mg/dL (1.7-2.8)
[2020-05-08] MEDS: POTASSIUM CHLOR 10 MEQ/100 ML 10 MEQ/100 ML BAG IV SCH ×6 (15:09→23:42)
[2020-05-08 15:21] LABS: ALBUMIN 2.5 g/dL (3.2-5.5); PHOSPHORUS 2.6 mg/dL (2.5-4.6)
[2020-05-08 15:28] LABS: CALCIUM 8.1 mg/dL (8.5-10.3); CREATININE 0.7 mg/dL (0.4-1.0); MAGNESIUM 1.8 mg/dL (1.7-2.8)
[2020-05-08] MEDS: NICOTINE 14 MG PATCH TOP SCH (16:26)
[2020-05-08] MEDS: SODIUM CHLORIDE FLUSH 0.9% 10 ML SYRINGE IVP SCH (17:57)
[2020-05-08 18:18] LABS: CREATININE 0.6 mg/dL (0.4-1.0)
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
[2020-05-08] MEDS: oxyCODONE ER 10 MG TABLET PO SCH (20:30)
[2020-05-08] MEDS: GABAPENTIN 300 MG CAPSULE PO SCH (21:58)
[2020-05-09 00:26] LABS: CALCIUM 7.7 mg/dL (8.5-10.3); CREATININE 0.5 mg/dL (0.4-1.0)
[2020-05-09] MEDS: POTASSIUM CHLOR 10 MEQ/100 ML 10 MEQ/100 ML BAG IV SCH ×2 (01:07→03:17)
[2020-05-09] MEDS: INSULIN GLARGINE 300 UNIT/3 ML PEN SUBQ SCH ×2 (01:07→20:49)
[2020-05-09] MEDS: SODIUM CHLORIDE FLUSH 0.9% 10 ML SYRINGE IVP SCH ×4 (03:49→20:43)
[2020-05-09] MEDS ORDERED: DEXTROSE GEL 37.5 GM TUBE PO ONE (04:57)
[2020-05-09 05:08] LABS: BASOPHILS % (AUTO) 0.4 %; EOSINOPHILS # (AUTO) 0.2 10^3/uL (0.0-0.7); EOSINOPHILS % (AUTO) 1.9 %; HGB - HEMOGLOBIN 10.2 g/dL (12.0-16.0); LYMPHOCYTES # (AUTO) 4.4 10^3/uL (1.5-3.5); LYMPHOCYTES % (AUTO) 46.1 %; MEAN CORPUSCULAR HEMOGLOBIN 31.2 pg (27.0-31.0); MEAN CORPUSCULAR HGB CONC 34.5 g/dL (32.0-36.0); MEAN CORPUSCULAR VOLUME 90.5 fL (81.0-99.0); MEAN PLATELET VOLUME 10.6 fL (7.9-10.8); MONOCYTES # (AUTO) 0.5 10^3/uL (0.0-1.0); MONOCYTES % (AUTO) 5.2 %; NEUTROPHILS # (AUTO) 4.4 10^3/uL (1.5-6.6); NEUTROPHILS % (AUTO) 46.1 %; PLT - PLATELET COUNT 410 10^3/uL (130-450); RED BLOOD COUNT 3.27 10^6/uL (4.20-5.40); RED CELL DISTRIBUTION WIDTH 12.8 % (12.0-15.0); WHITE BLOOD COUNT 9.6 x10^3/uL (4.8-10.8)
[2020-05-09 05:18] LABS: ALBUMIN 2.4 g/dL (3.2-5.5); PHOSPHORUS 2.3 mg/dL (2.5-4.6)
[2020-05-09 05:24] LABS: CALCIUM 8.1 mg/dL (8.5-10.3); CREATININE 0.5 mg/dL (0.4-1.0)
[2020-05-09] MEDS: GABAPENTIN 300 MG CAPSULE PO SCH ×3 (05:24→22:26)
[2020-05-09] MEDS ORDERED: DEXTROSE GEL 37.5 GM TUBE ONE (05:26)
[2020-05-09] MEDS: PANTOPRAZOLE 40 MG VIAL IVP SCH (06:12)
[2020-05-09] MEDS: NEUTRA-PHOS 250 MG TABLET PO SCH ×2 (06:12→08:49)
[2020-05-09] MEDS: D5.45NS W/20 MEQ KCL 1,000 ML IV SCH ×2 (08:40→20:43)
[2020-05-09] MEDS: NICOTINE 14 MG PATCH TOP SCH (08:46)
[2020-05-09] MEDS: allopurinoL 100 MG TABLET PO SCH (08:47)
[2020-05-09] MEDS: INSULIN ASPART 300 UNIT/3 ML PEN SUBQ SCH ×4 (08:47→20:48)
[2020-05-09] MEDS: ENOXAPARIN 40 MG/0.4 ML SYRINGE SUBQ SCH (08:51)
[2020-05-09] MEDS: oxyCODONE ER 10 MG TABLET PO SCH ×2 (08:54→20:50)
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
[2020-05-09] MEDS: SODIUM CHLORIDE FLUSH 0.9% 10 ML SYRINGE IVP PRN (20:43)
[2020-05-10] MEDS: SODIUM CHLORIDE FLUSH 0.9% 10 ML SYRINGE IVP SCH ×3 (00:37→18:04)
[2020-05-10] MEDS: GABAPENTIN 300 MG CAPSULE PO SCH ×3 (05:46→21:14)
[2020-05-10] MEDS: SODIUM CHLORIDE FLUSH 0.9% 10 ML SYRINGE IVP PRN (05:46)
[2020-05-10] MEDS: PANTOPRAZOLE 40 MG VIAL IVP SCH (05:46)
[2020-05-10 06:17] LABS: CALCIUM 8.1 mg/dL (8.5-10.3); CREATININE 0.8 mg/dL (0.4-1.0); MAGNESIUM 1.6 mg/dL (1.7-2.8)
[2020-05-10] MEDS ORDERED: MAGNESIUM OXIDE 400 MG TABLET PO SCH (08:00)
[2020-05-10] MEDS ORDERED: lisinopriL 5 MG TABLET PO SCH (09:00)
[2020-05-10] MEDS: NICOTINE 14 MG PATCH TOP SCH (09:42)
[2020-05-10] MEDS: INSULIN ASPART 300 UNIT/3 ML PEN SUBQ SCH ×4 (09:42→21:12)
[2020-05-10] MEDS: ENOXAPARIN 40 MG/0.4 ML SYRINGE SUBQ SCH (09:43)
[2020-05-10] MEDS: D5.45NS W/20 MEQ KCL 1,000 ML IV SCH (09:45)
[2020-05-10] MEDS: oxyCODONE ER 10 MG TABLET PO SCH ×2 (09:46→21:12)
[2020-05-10] MEDS: allopurinoL 100 MG TABLET PO SCH (09:46)
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
[2020-05-10] MEDS: INSULIN GLARGINE 300 UNIT/3 ML PEN SUBQ SCH (21:13)
[2020-05-11] MEDS: SODIUM CHLORIDE FLUSH 0.9% 10 ML SYRINGE IVP SCH ×3 (00:13→17:36)
[2020-05-11] MEDS: PANTOPRAZOLE 40 MG TABLET PO SCH (06:10)
[2020-05-11] MEDS: GABAPENTIN 300 MG CAPSULE PO SCH ×3 (06:10→21:00)
[2020-05-11] MEDS: INSULIN ASPART 300 UNIT/3 ML PEN SUBQ SCH ×5 (08:33→21:15)
[2020-05-11] MEDS: ENOXAPARIN 40 MG/0.4 ML SYRINGE SUBQ SCH (08:34)
[2020-05-11] MEDS: oxyCODONE ER 10 MG TABLET PO SCH ×2 (08:34→21:00)
[2020-05-11] MEDS: allopurinoL 100 MG TABLET PO SCH (08:35)
[2020-05-11] MEDS: NICOTINE 14 MG PATCH TOP SCH (08:35)
[2020-05-11] MEDS ORDERED: LOSARTAN 50 MG TABLET PO SCH ×2 (09:00→17:23)
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
[2020-05-11 14:21] LABS: HEPATITIS A IGM NON-REACTIVE (NON-REACTIVE); HEPATITIS B SURFACE ANTIGEN NON-REACTIVE (NON-REACTIVE); HEPATITIS C ANTIBODY REACTIVE (NON-REACTIVE)
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
[2020-05-11] MEDS: INSULIN GLARGINE 300 UNIT/3 ML PEN SUBQ SCH (21:06)
[2020-05-12] MEDS: SODIUM CHLORIDE FLUSH 0.9% 10 ML SYRINGE IVP SCH ×2 (02:14→08:24)
[2020-05-12 05:12] LABS: CALCIUM 7.7 mg/dL (8.5-10.3); CREATININE 0.9 mg/dL (0.4-1.0)
[2020-05-12] MEDS: PANTOPRAZOLE 40 MG TABLET PO SCH (07:00)
[2020-05-12] MEDS: GABAPENTIN 300 MG CAPSULE PO SCH (07:00)
[2020-05-12] MEDS ORDERED: MULTIVITAMIN W/MINERALS TABLET PO SCH (08:00)
[2020-05-12] MEDS: INSULIN ASPART 300 UNIT/3 ML PEN SUBQ SCH ×2 (08:22→08:24)
[2020-05-12] MEDS: NICOTINE 14 MG PATCH TOP SCH (08:23)
[2020-05-12] MEDS: oxyCODONE ER 10 MG TABLET PO SCH (08:23)
[2020-05-12] MEDS: allopurinoL 100 MG TABLET PO SCH (08:23)
[2020-05-12] MEDS: ENOXAPARIN 40 MG/0.4 ML SYRINGE SUBQ SCH (08:24)
[2020-05-12 09:37] VITALS: BP 159/89
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
[2020-05-13 07:28] LABS: HEMOGLOBIN A1c% 10.4 % (4.27-6.07)
== END 2020-05-12 10:35 | disposition home or self-care (01) | DRG 637 ==
LOC: EDUNIT# → ED 07:24 → ICU 11:39 → MS3 05-09 13:48
PROVIDERS: ADMIT Internal Medicine; ATTEND Specialist
DX: E11.65 Type 2 diabetes mellitus with hyperglycemia (principal); E43 Unspecified severe protein-calorie malnutrition; K86.0 Alcohol-induced chronic pancreatitis; R64 Cachexia; Z79.4 Long term (current) use of insulin; K70.30 Alcoholic cirrhosis of liver without ascites; B19.20 Unspecified viral hepatitis C without hepatic coma; R93.429 Abnormal radiologic findings on diagnostic imaging of unspecified kidney; K80.20 Calculus of gallbladder without cholecystitis without obstruction; I10 Essential (primary) hypertension; R53.1 Weakness; E11.649 Type 2 diabetes mellitus with hypoglycemia without coma; E11.42 Type 2 diabetes mellitus with diabetic polyneuropathy; Z59.0 Homelessness; F17.210 Nicotine dependence, cigarettes, uncomplicated; Z91.14 Patient's other noncompliance with medication regimen; Z20.828 Contact with and (suspected) exposure to other viral communicable diseases; Z76.5 Malingerer [conscious simulation]; Z87.898 Personal history of other specified conditions
CPT/HCPCS: 36415; 76705; 80048; 80053; 80074; 80306; 80320; 81003; 82009; 82040; 82803; 82947; 83036; 83690; 83735; 84100; 84478; 85025; 87150; 87635; 96361; 96374; 96375; 99284; 99285; A9270; J1170; J1650; J1815; 81001; 84132; 87086